=== PATIENT | female | born 1960 | race Caucasian/White ===

== ENCOUNTER 2017-07-02 08:30 | Day surgery (SDC) | payer BC, MEDICAID ==
--- NOTE | 2017-07-01 14:14 | HP ---
HISTORY AND PHYSICAL DATE OF SERVICE: 07/02/2017 Anabella Siddiqi is a 56-year-old patient seen with a symptomatic soft tissue mass of the left elbow. We discussed treatment options. She elected to proceed with surgical excision. Consent was obtained. PAST MEDICAL HISTORY: Hypertension. PAST SURGICAL HISTORY: Left knee arthroscopy. MEDICATIONS: 1. Amlodipine. 2. Alprazolam. 3. Xanax. 4. Enbrel. ALLERGIES: DILAUDID SOCIAL HISTORY: Patient denies current tobacco use. PHYSICAL EVALUATION OF THE LEFT ELBOW: Range of motion is full. There is good rotation of the forearm with no pain. There is a 2 cm x 2 cm soft tissue mass in the area of the olecranon process. It is minimally tender. There is no evidence for any infective process. Distal neurovascular exam is intact. Radiographs of the left elbow revealed no osseous abnormality. IMPRESSION: Symptomatic soft tissue mass, left elbow. PLAN: Excision soft tissue mass, left elbow. MMODL / IJN: [id number] /
[~2017-07-02 08:30] MED LIST: DEXAMETHASONE SOD PHOSPHATE 10 MG/ML 1 ML VIAL IV ONE; LACTATED RINGERS 1,000 ML IV SCH; LIDOCAINE 1% 20 ML VIAL (10MG/ML) FOR IV START INTRADERMA PRN; MIDAZOLAM 2 MG/2 ML VIAL IV PRN; ONDANSETRON 4 MG/2 ML VIAL IVP ONE; SCOPOLAMINE 1.5MG/72HR PATCH TRANSDERM ONE; ceFAZolin IN SWFI 2 GM/20 ML SYRINGE IVP ONE
[2017-07-02] MEDS ORDERED: ePHEDrine SULFATE/0.9% NACL/PF 50 MG/5 ML SYRINGE IV ONE (09:49)
[2017-07-02] MEDS ORDERED: PROPOFOL 10 MG/ML 20 ML VIAL IV ONE (09:49)
[2017-07-02] MEDS ORDERED: SUCCINYLCHOLINE CHLORIDE 100 MG/5 ML SYR IV ONE (09:49)
[2017-07-02] MEDS ORDERED: MIDAZOLAM 2 MG/2 ML VIAL ONE (09:49)
[2017-07-02] MEDS ORDERED: fentaNYL (PF) 50 MCG/ML 2 ML AMP ONE (09:49)
[2017-07-02] MEDS ORDERED: LIDOCAINE 1% INJ 10MG/ML (20 ML MDV) ONE (09:49)
[2017-07-02] MEDS ORDERED: BUPIVACAINE (PF) 0.5% 30 ML VIAL SQ ONE (10:09)
[2017-07-02] MEDS ORDERED: ceFAZolin 1,000 MG in SODIUM CHLORIDE 0.9% 1,000 ML IRRIGATION ONE (10:11)
--- NOTE | 2017-07-02 10:47 | P.OP ---
Date of Procedure: 07/02/17 Preoperative Diagnosis: Left elbow symptomatic soft tissue mass Postoperative Diagnosis: Left elbow symptomatic olecranon bursa Procedure(s) Performed: Left elbow olecranon bursectomy Implants: none Anesthesia: SHAHBAZ, local Surgeon: Sid Griffin Auditing Control Clerk #1: Azam Linton Estimated Blood Loss (ml): 5 Pathology: none sent Condition: stable Disposition: PACU Indications for Procedure: 56-year-old patient seen with a synthetic left elbow soft tissue mass. After treatment options were discussed, she elected to proceed with excision. Operative Findings: see description of procedure Description of Procedure: Patient was taken to the operative suite. Patient received preoperative IV antibiotics. Patient underwent a general anesthetic by the department of anesthesia. Well-padded tourniquet was placed proximal left upper extremity. The left upper extremity was prepped and draped in the normal sterile orthopedic fashion. The tourniquet was insufflated to 250. I made an incision over the area of olecranon prominence sharply through skin. I dissected down to subcutaneous tissues. We noted a prominent olecranon bursa which was fairly swollen and measured approximately 2 cm x 2 cm and raised 2 cm. At this point it was carefully excised. I noted complete excision of the bursa. I performed hemostasis via electrocautery. The wound was irrigated. We now carefully tacked down the subcutaneous soft tissues to close any potential spaces with 2- 0 Vicryl suture. We now repaired the skin margins with a running 30 strata fix suture. The skin itself was approximated with pernio/Dermabond. We infiltrated the subcutaneous area with 10 mL half percent plain Marcaine. Sterile dressings were applied. Tourniquet was released with good capillary refill noted extremity. Sterile web roll and Brigido bandage were applied. Patient was then awakened and transferred to recovery stable condition. Vega HASSAN assisted with the procedure.
[2017-07-02 10:54] VITALS: TEMP 98
[2017-07-02] MEDS ORDERED: LACTATED RINGERS 1,000 ML IV ONE (11:15)
[2017-07-02 11:20] VITALS: RESP 16
[2017-07-02 12:21] VITALS: BP 120/75; PULSE 79
== END 2017-07-02 12:25 | disposition home or self-care (01) ==
LOC: OR 08:30
PROVIDERS: ATTEND Orthopaedic Surgery
DX: M71.522 Other bursitis, not elsewhere classified, left elbow (principal); I10 Essential (primary) hypertension; Z87.891 Personal history of nicotine dependence; K21.9 Gastro-esophageal reflux disease without esophagitis; Z79.891 Long term (current) use of opiate analgesic; Z79.899 Other long term (current) drug therapy; Z88.5 Allergy status to narcotic agent
CPT/HCPCS: 24105; J2250; J1100; J2405; J0690 ×2; J2001; J3010; J0330; J2704

== ENCOUNTER → 2017-07-08 | Outpatient (CLI) | payer MEDICAID ==
[2017-07-08 11:53] LABS: T4, Free (Free Thyroxine) 1.36 ng/dL (0.78-2.19)
[2017-07-08 15:21] LABS: Thyroid Peroxidase Antibodies 30.1 U/mL (0.0-60.0)
[2017-07-08 15:24] LABS: Progesterone <0.2 ng/mL
== END | disposition home or self-care (01) ==
LOC: LABWHC1 07:48
PROVIDERS: ATTEND Family Medicine
DX: Z00.00 Encounter for general adult medical examination without abnormal findings (principal); Q84.0 Congenital alopecia; R06.02 Shortness of breath
CPT/HCPCS: 36415; 82672; 83001; 83002; 84144; 84439; 84443; 84481; 86376; 86800

== ENCOUNTER → 2018-02-02 | Outpatient (CLI) | payer MEDICAID ==
[2018-02-02 08:04] LABS: Basophils % (A) 0 %; Eosinophils # (A) 0.3 k/uL (0-0.7); Eosinophils % (A) 4 %; HCT 45.3 % (34.0-46.0); HGB 14.4 gm/dL (11.4-16.0); Lymphocytes # (A) 1.8 k/uL (1.0-4.8); Lymphocytes % (A) 23 %; MCH 30.1 pg (25.0-35.0); MCHC 31.9 g/dL (31.0-37.0); MCV 94.5 fL (80.0-100.0); Mean Platelet Volume 7.3; Monocytes # (A) 0.4 k/uL (0-1.0); Monocytes % (A) 5 %; Neutrophils % (A) 66 %; Platelet Count 273 k/uL (150-450); RBC 4.79 m/uL (3.80-5.40); RDW 14.2 % (11.5-15.5); WBC 7.6 k/uL (3.8-10.6)
== END | disposition home or self-care (01) ==
LOC: LABPAT 07:24
PROVIDERS: ATTEND Orthopaedic Surgery
DX: Z01.812 Encounter for preprocedural laboratory examination (principal); R22.32 Localized swelling, mass and lump, left upper limb
CPT/HCPCS: 36415; 85025

== ENCOUNTER 2018-02-11 06:18 | Day surgery (SDC) | payer MEDICAID ==
--- NOTE | 2018-02-10 15:08 | HP ---
HISTORY AND PHYSICAL DATE OF SERVICE: 02/11/2018 Anabella Siddiqi is a 67-year-old patient seen with a symptomatic soft tissue mass of the left elbow as well as a symptomatic soft tissue mass of the right index finger, both for progressive symptomatic. We discussed treatment options. She elected to proceed with surgical excision of both soft tissue mass areas. Consent regarding the procedure was obtained. PAST MEDICAL HISTORY: Hypertension. PAST SURGICAL HISTORY: Excision of soft tissue mass left elbow and knee arthroscopy. DAILY MEDICATIONS: 1. Alprazolam. 2. Amlodipine. 3. Tenex. 4. Enbrel. 5. Methotrexate. ALLERGIES: DILAUDID. SOCIAL HISTORY: Patient denies current tobacco use. PHYSICAL EVALUATION OF THE LEFT ELBOW: There is a soft tissue mass located along the olecranon border about 2 cm distal to the previous olecranon bursectomy site. The soft tissue mass measures 2 cm x 1 cm and raised 1 cm, tender to palpation, fully immobile, no erythema or evidence for infective process. There is painless range of motion of the elbow and forearm. Her distal neurovascular exam is intact. ON EXAMINATION OF THE RIGHT INDEX FINGER: There is a soft tissue mass along the dorsal PIP joint, tender to palpation, measuring a couple mm in diameter, raised 1 mm with no evidence for any infective process. Radiographs of the left elbow revealed no osseous abnormality. Radiographs of the right index finger revealed some osteoarthritis of the PIP joint. IMPRESSION: 1. Soft tissue mass, right index finger. 2. Soft tissue mass left elbow. 3. Rheumatoid arthritis. 4. Hypertension. PLAN: Excision soft tissue mass, left elbow and excision soft tissue mass, right index finger. MMODL / IJN: [id number] /
[~2018-02-11 06:18] MED LIST changes: -LIDOCAINE 1% 20 ML VIAL (10MG/ML) FOR IV START INTRADERMA PRN; +fentaNYL (PF) 50 MCG/ML 2 ML AMP IV PRN
[2018-02-11] MEDS ORDERED: PROPOFOL 10 MG/ML 20 ML VIAL IV ONE (07:30)
[2018-02-11] MEDS ORDERED: fentaNYL (PF) 50 MCG/ML 2 ML AMP ONE (07:30)
[2018-02-11] MEDS ORDERED: MIDAZOLAM 2 MG/2 ML VIAL ONE (07:30)
[2018-02-11] MEDS ORDERED: LIDOCAINE 1% INJ 10MG/ML (20 ML MDV) ONE (07:30)
[2018-02-11] MEDS ORDERED: ROPIVACAINE 5 MG/ML 30 ML VIAL MISCELLANE ONE ×2 (07:49)
--- NOTE | 2018-02-11 08:24 | P.OP ---
Date of Procedure: 02/11/18 Preoperative Diagnosis: 1. Soft tissue mass left elbow 2. Soft tissue mass right index finger Postoperative Diagnosis: Same Procedure(s) Performed: 1. Excision soft tissue mass left elbow 2. Excision soft tissue mass right index finger Anesthesia: SHAHBAZ, local Surgeon: Sid Griffin Estimated Blood Loss (ml): 3 Pathology: none sent Condition: stable Disposition: PACU Indications for Procedure: 57-year-old patient seen with symptomatic soft tissue masses involving the left elbow and right index finger. After having treatment options discussed, she elected to proceed with surgical excision. Consent was obtained. Operative Findings: see description of procedure Description of Procedure: The patient was taken to the operative suite. Patient received preoperative IV antibiotics. The patient underwent a general anesthetic by the department anesthesia. A well-padded tourniquet was placed proximal left upper extremity. Left upper extremity was prepped and draped in the normal sterile orthopedic fashion. The tourniquet was elevated to 250. I made an incision over the area of the soft tissue mass. Dissection was taken down to the soft tissue mass. It appeared to be a fibrous benign-appearing soft tissue mass. It was excised without difficulty. Cautery was utilized to achieve hemostasis. The wound was irrigated. The skin margins were approximated nylon suture. I used 15 mL of half percent plain ropivacaine around the area of the excision. Sterile dressings were applied. The tourniquet was released and immediate capillary refill was noted the entire extremity. At this point the right upper extremity is prepped and draped in the normal sterile orthopedic fashion. A [place] drain was utilized to achieve tourniquet effect to the right index finger. An incision was made over the soft tissue mass which was along the dorsal DIP joint ulnar side. I dissected down to the soft tissue masses appear to be fibrous in nature. It was excised without difficulty. The wound was irrigated. The skin is proximal nylon sutures. The Meeta was released and immediate capillary refill the entire digit. I used 5 mL half percent plain ropivacaine for a digital block. Sterile dressings were applied. The patient was awakened, transferred to recovery stable condition.
[2018-02-11 08:25] VITALS: RESP 16; TEMP 98.4
[2018-02-11 09:33] VITALS: BP 134/87; PULSE 79
== END 2018-02-11 09:48 | disposition home or self-care (01) ==
LOC: OR 06:18
PROVIDERS: ATTEND Orthopaedic Surgery
DX: L92.8 Other granulomatous disorders of the skin and subcutaneous tissue (principal); M06.9 Rheumatoid arthritis, unspecified; I10 Essential (primary) hypertension; Z79.899 Other long term (current) drug therapy; Z88.5 Allergy status to narcotic agent; K21.9 Gastro-esophageal reflux disease without esophagitis
CPT/HCPCS: 88305; 88312; 24075; 26115; J2250; J1100; J2405; J2001; J3010; J2795; J2704; J0690

== ENCOUNTER → 2018-04-24 | Outpatient (CLI) | payer MEDICAID ==
[2018-04-24 09:04] LABS: Basophils % (A) 1 %; Eosinophils # (A) 0.3 k/uL (0-0.7); Eosinophils % (A) 5 %; HCT 44.6 % (34.0-46.0); HGB 14.9 gm/dL (11.4-16.0); Lymphocytes # (A) 1.8 k/uL (1.0-4.8); Lymphocytes % (A) 32 %; MCH 30.8 pg (25.0-35.0); MCHC 33.3 g/dL (31.0-37.0); MCV 92.4 fL (80.0-100.0); Mean Platelet Volume 6.9; Monocytes # (A) 0.3 k/uL (0-1.0); Monocytes % (A) 5 %; Neutrophils # (A) 3.1 k/uL (1.3-7.7); Neutrophils % (A) 54 %; Platelet Count 290 k/uL (150-450); RBC 4.83 m/uL (3.80-5.40); RDW 13.6 % (11.5-15.5); WBC 5.7 k/uL (3.8-10.6)
[2018-04-24 09:10] LABS: Potassium 4.6 mmol/L (3.5-5.1)
[2018-04-24 09:14] LABS: Partial Thromboplastin Time 22.7 sec (22.0-30.0); Prothrombin Time 9.6 sec (9.0-12.0)
== END ==
LOC: LABWHC1 08:12
PROVIDERS: ATTEND Orthopaedic Surgery
DX: Z01.818 Encounter for other preprocedural examination (principal); Z01.812 Encounter for preprocedural laboratory examination; M17.12 Unilateral primary osteoarthritis, left knee
CPT/HCPCS: 80051; 85025; 85610; 85730; 87070; 93005

== ENCOUNTER 2018-04-29 00:58 | Emergency (ER) | payer MEDICAID ==
[2018-04-29 01:04] VITALS: TEMP 97.9
[2018-04-29] MEDS ORDERED: SODIUM CHLORIDE 0.9% 1,000 ML IV STA ×2 (01:13)
[2018-04-29] MEDS ORDERED: ONDANSETRON 4 MG/2 ML VIAL IVP STA (01:26)
[2018-04-29] MEDS ORDERED: MORPHINE SULFATE 4 MG/ML SYRINGE IVP STA (01:26)
[2018-04-29] MEDS ORDERED: KETOROLAC 30 MG/ML 1 ML VIAL IVP STA (01:26)
--- NOTE | 2018-04-29 01:40 | ED ---
Abdominal Pain HPI - General Chief Complaint: Abdominal Pain Stated Complaint: Side Pain Time Seen by Provider: 04/29/18 01:05 Source: patient, family, RN notes reviewed, old records reviewed Mode of arrival: wheelchair Limitations: no limitations - History of Present Illness Initial Comments: Patient is a 57-year-old female presents emergency Department due to complaint of left lower quadrant abdominal pain for the past 5 days. Patient reports she started taking antibiotics for diverticulitis on Thursday. She's been taking the medications but pain has been persisting. Patient reports that she is concerned because she's had continued chills. She reports she's had some episodes of vomiting today. She did have a bowel movement today no blood noted. She denies dysuria or hematuria. Denies back pain. She reports her pain feels similar to her previous diverticulitis episodes but is never lasted this long. - Related Data Home Medications Medication Instructions Recorded Confirmed ALPRAZolam [Xanax] 0.5 mg PO DIRECTED PRN 12/13/15 02/11/18 Etanercept [Enbrel] 25 mg SQ FR 12/13/15 02/11/18 Folic Acid 1 mg PO DAILY 12/13/15 02/11/18 Methotrexate Sodium [Methotrexate] 7 tab PO FR 12/13/15 02/11/18 Pantoprazole [Protonix] 40 mg PO Q48H 12/13/15 02/11/18 amLODIPine BESYLATE [Amlodipine 5 mg PO DAILY 12/13/15 02/11/18 Besylate] diphenhydrAMINE [Benadryl] 25 mg PO BID PRN 02/05/18 02/11/18 Previous Rx's Medication Instructions Recorded Ketorolac [Toradol] 10 mg PO Q6H #20 tab 04/29/18 Allergies Allergy/AdvReac Type Severity Reaction Status Date / Time hydromorphone [From Dilaudid] Allergy sweating, Verified 02/11/18 06:35 blood pressure dropped, n/v Review of Systems ROS Statement: Those systems with pertinent positive or pertinent negative responses have been documented in the HPI. ROS Other: All systems not noted in ROS Statement are negative. Past Medical History Past Medical History: GERD/Reflux, Hypertension, Rheumatoid Arthritis (RA) Additional Past Medical History / Comment(s): DIVERTICULOSIS History of Any Multi-Drug Resistant Organisms: None Reported Additional Past Surgical History / Comment(s): KNEE SURGERIES LEFT X 9 Past Anesthesia/Blood Transfusion Reactions: No Reported Reaction, Family History of Problems w/ Anesthesia Additional Past Anesthesia/Blood Transfusion Reaction / Comment(s): daughter experiences passing out after anesthesia Past Psychological History: No Psychological Hx Reported Smoking Status: Never smoker Past Drug Use History: None Reported - Past Family History Mother Family Medical History: No Reported History General Exam - General Exam Comments Initial Comments: 57-year-old female. Alert and oriented. Patient appears in no significant distress. Limitations: no limitations General appearance: alert, in no apparent distress Head exam: Present: atraumatic, normocephalic, normal inspection Eye exam: Present: normal appearance, PERRL, EOMI. Absent: scleral icterus, conjunctival injection, periorbital swelling ENT exam: Present: normal exam, mucous membranes moist Neck exam: Present: normal inspection. Absent: tenderness, meningismus, lymphadenopathy Respiratory exam: Present: normal lung sounds bilaterally. Absent: respiratory distress, wheezes, rales, rhonchi, stridor Cardiovascular Exam: Present: regular rate GI/Abdominal exam: Present: soft, tenderness (Left lower quadrant tenderness.), normal bowel sounds. Absent: distended, guarding, rebound, rigid Back exam: Present: normal inspection Neurological exam: Present: alert, oriented X3, CN II-XII intact Psychiatric exam: Present: normal affect, normal mood Skin exam: Present: warm, dry, intact, normal color. Absent: rash Course Vital Signs 04/29/18 04/29/18 04/29/18 01:00 02:09 03:30 Temperature 97.9 F 97.9 F Pulse Rate 112 H 78 Respiratory 18 18 19 Rate Blood Pressure 143/91 157/95 O2 Sat by Pulse 97 98 Oximetry Medical Decision Making - Medical Decision Making Patient is a 57-year-old female with history of rheumatoid arthritis, on Enbrel and methotrexate presents emergency room with left lower quadrant abdominal pain. Patient is concerned that she has diverticulitis. She's been taking antibiotics for the past 5 days. She reports her symptoms are not getting any better. Patient was started on IV and blood work was obtained. Blood culture lactic acid obtained. Patient was started on Toradol, and offered morphine but she declined. Patient labwork was reviewed. White blood cell count was normal. She does have elevated liver enzymes of 266 and 280. Patient states that that hasn't been elevated according to her senior stereo compiler team lead. I discussed that she should follow-up with her senior stereo compiler team lead in regards to this. She may need to discontinue methotrexate. Patient CT abdomen and pelvis was completed. There is no evidence of diverticulitis. Patient does have a left-sided ovarian cyst. Patient informed of these results. I discussed that we will have her follow-up with [facility] and discharge her with anti-inflammatory medicine. Patient agrees to treatment plan will comply. Return parameters were discussed. - Lab Data Result diagrams: 04/29/18 01:50 04/29/18 01:50 Lab Results 04/29/18 04/29/18 04/29/18 Range/Units 01:50 01:50 01:50 WBC 5.9 (3.8-10.6) k/uL RBC 4.64 (3.80-5.40) m/uL Hgb 14.2 (11.4-16.0) gm/dL Hct 42.8 (34.0-46.0) % MCV 92.3 (80.0-100.0) fL MCH 30.6 (25.0-35.0) pg MCHC 33.2 (31.0-37.0) g/dL RDW 13.9 (11.5-15.5) % Plt Count 254 (150-450) k/uL Neutrophils % 60 % Lymphocytes % 28 % Monocytes % 4 % Eosinophils % 6 % Basophils % 1 % Neutrophils # 3.5 (1.3-7.7) k/uL Lymphocytes # 1.6 (1.0-4.8) k/uL Monocytes # 0.2 (0-1.0) k/uL Eosinophils # 0.3 (0-0.7) k/uL Basophils # 0.0 (0-0.2) k/uL Sodium 140 (137-145) mmol/L Potassium 3.7 (3.5-5.1) mmol/L Chloride 109 H (98-107) mmol/L Carbon Dioxide 24 (22-30) mmol/L Anion Gap 7 mmol/L BUN 8 (7-17) mg/dL Creatinine 0.64 (0.52-1.04) mg/dL Est GFR (CKD-EPI)AfAm >90 (>60 ml/min/1.73 sqM) Est GFR (CKD-EPI)NonAf >90 (>60 ml/min/1.73 sqM) Glucose 114 H (74-99) mg/dL Plasma Lactic Acid [place] 2.0 (0.7-2.0) mmol/L Calcium 8.9 (8.4-10.2) mg/dL Total Bilirubin 0.5 (0.2-1.3) mg/dL AST 233 H (14-36) U/L ALT 234 H (9-52) U/L Alkaline Phosphatase 106 (38-126) U/L Total Protein 7.6 (6.3-8.2) g/dL Albumin 4.0 (3.5-5.0) g/dL Amylase 52 (30-110) U/L Lipase 144 (23-300) U/L Urine Color Urine Appearance (Clear) Urine pH (5.0-8.0) Ur Specific [place] (1.001-1.035) Urine Protein (Negative) Urine Glucose (UA) (Negative) Urine Ketones (Negative) Urine Blood (Negative) Urine Nitrite (Negative) Urine Bilirubin (Negative) Urine Urobilinogen (<2.0) mg/dL Ur Leukocyte Esterase (Negative) Urine RBC (0-5) /hpf Urine WBC (0-5) /hpf Ur Squamous Epith Cells (0-4) /hpf Urine Bacteria (None) /hpf Urine Mucus (None) /hpf 04/29/18 Range/Units 02:56 WBC (3.8-10.6) k/uL RBC (3.80-5.40) m/uL Hgb (11.4-16.0) gm/dL Hct (34.0-46.0) % MCV (80.0-100.0) fL MCH (25.0-35.0) pg MCHC (31.0-37.0) g/dL RDW (11.5-15.5) % Plt Count (150-450) k/uL Neutrophils % % Lymphocytes % % Monocytes % % Eosinophils % % Basophils % % Neutrophils # (1.3-7.7) k/uL Lymphocytes # (1.0-4.8) k/uL Monocytes # (0-1.0) k/uL Eosinophils # (0-0.7) k/uL Basophils # (0-0.2) k/uL Sodium (137-145) mmol/L Potassium (3.5-5.1) mmol/L Chloride (98-107) mmol/L Carbon Dioxide (22-30) mmol/L Anion Gap mmol/L BUN (7-17) mg/dL Creatinine (0.52-1.04) mg/dL Est GFR (CKD-EPI)AfAm (>60 ml/min/1.73 sqM) Est GFR (CKD-EPI)NonAf (>60 ml/min/1.73 sqM) Glucose (74-99) mg/dL Plasma Lactic Acid [place] (0.7-2.0) mmol/L Calcium (8.4-10.2) mg/dL Total Bilirubin (0.2-1.3) mg/dL AST (14-36) U/L ALT (9-52) U/L Alkaline Phosphatase (38-126) U/L Total Protein (6.3-8.2) g/dL Albumin (3.5-5.0) g/dL Amylase (30-110) U/L Lipase (23-300) U/L Urine Color Light Yellow Urine Appearance Cloudy H (Clear) Urine pH 7.5 (5.0-8.0) Ur Specific [place] 1.009 (1.001-1.035) Urine Protein Negative (Negative) Urine Glucose (UA) Negative (Negative) Urine Ketones Negative (Negative) Urine Blood Negative (Negative) Urine Nitrite Negative (Negative) Urine Bilirubin Negative (Negative) Urine Urobilinogen <2.0 (<2.0) mg/dL Ur Leukocyte Esterase Moderate H (Negative) Urine RBC 2 (0-5) /hpf Urine WBC 4 (0-5) /hpf Ur Squamous Epith Cells 4 (0-4) /hpf Urine Bacteria Many H (None) /hpf Urine Mucus Rare H (None) /hpf - Radiology Data Radiology results: report reviewed There is a sigmoid diverticulosis without evidence of acute diverticulitis. Mild if her to chemosis of the left colon. There is normal appendix. Cystic fluid collection of the left side of the pelvis is probably a left ovarian cyst. Disposition Clinical Impression: Elevated liver enzymes, Left ovarian cyst Disposition: HOME SELF-CARE Condition: Good Instructions: Ovarian Cyst (ED) Additional Instructions: Patient is advised to follow-up with primary care physician. Take the medicines as prescribed. Return to the emergency department if any alarming signs or symptoms occur. Prescriptions: Ketorolac [Toradol] 10 mg PO Q6H #20 tab Is patient prescribed a controlled substance at d/c from ED?: No Referrals: Shayne Cisneros DO [Primary Care Provider] - 1-2 days Humaira Benítez DO [Doctor of Osteopathic Medicine] - 1-2 days Darlene Ugarte MD [STAFF PHYSICIAN] - 1-2 days Time of Disposition: 03:48
[2018-04-29 02:35] LABS: Basophils % (A) 1 %; Eosinophils # (A) 0.3 k/uL (0-0.7); Eosinophils % (A) 6 %; HCT 42.8 % (34.0-46.0); HGB 14.2 gm/dL (11.4-16.0); Lymphocytes # (A) 1.6 k/uL (1.0-4.8); Lymphocytes % (A) 28 %; MCH 30.6 pg (25.0-35.0); MCHC 33.2 g/dL (31.0-37.0); MCV 92.3 fL (80.0-100.0); Mean Platelet Volume 7.5; Monocytes # (A) 0.2 k/uL (0-1.0); Monocytes % (A) 4 %; Neutrophils # (A) 3.5 k/uL (1.3-7.7); Neutrophils % (A) 60 %; Platelet Count 254 k/uL (150-450); RBC 4.64 m/uL (3.80-5.40); RDW 13.9 % (11.5-15.5); WBC 5.9 k/uL (3.8-10.6)
[2018-04-29 02:37] LABS: ALT 234 U/L (9-52); AST 233 U/L (14-36); Alkaline Phosphatase 106 U/L (38-126); Amylase 52 U/L (30-110); Anion Gap 7 mmol/L; Blood Urea Nitrogen 8 mg/dL (7-17); Calcium 8.9 mg/dL (8.4-10.2); Carbon Dioxide 24 mmol/L (22-30); Chloride 109 mmol/L (98-107); Glucose 114 mg/dL (74-99); Lipase 144 U/L (23-300); Potassium 3.7 mmol/L (3.5-5.1); Sodium 140 mmol/L (137-145); Total Bilirubin 0.5 mg/dL (0.2-1.3); Total Protein 7.6 g/dL (6.3-8.2)
--- NOTE | 2018-04-29 03:09 | CT ---
EXAMINATION TYPE: CT abdomen pelvis w con DATE OF EXAM: 04/29/2018 COMPARISON: 12/15/2008 HISTORY: LLQ Abd pain, R/O Abcess, R/O Diverticulitis CT DLP: 849.10 mGycm Automated exposure control for dose reduction was used. TECHNIQUE: Helical acquisition of images was performed from the lung bases through the pelvis. CONTRAST: Performed without Oral Contrast and with IV Contrast, patient injected with 100 mL of Isovue 300. FINDINGS: Lung bases are clear. There is no pleural effusion. There is no pericardial effusion. Heart size is n ormal. Liver spleen pancreas gallbladder appear normal. Bile ducts are not dilated. There is no adrenal mass. Kidneys show satisfactory contrast opacification. There is no hydronephrosi s. Ureters are not dilated. There is no retroperitoneal adenopathy. Bladder distends smoothly. There is no inguinal hernia. Uterus is retroverted. There are numerous div erticula in the sigmoid colon. I see no sign of diverticulitis. There is 4.6 x 2.6 cm cystic fluid co llection in the pelvis on the left side. Appendix appears normal. Lumbar vertebra have normal spacing and alignment. I see no bony destructive process. Bony pelvis anaya ears intact. There is no mesenteric edema or adenopathy. There is no sign of free air. There is no si gn of ascites. IMPRESSION: THERE IS SIGMOID DIVERTICULOSIS WITHOUT EVIDENCE OF DIVERTICULITIS. THERE IS MILD DIVERTICULOSIS OF T HE LEFT COLON. NORMAL APPENDIX. CYSTIC FLUID COLLECTION ON THE LEFT SIDE IN THE PELVIS IS PROBABLY LEFT OVARIAN CYST.
[2018-04-29 03:19] LABS: Appearance,Urine Cloudy (Clear); Bacteria,Urine Many /hpf; Bilirubin,Urine Negative (Negative); Blood,Urine Negative (Negative); Color,Urine Light Yellow; Glucose,Urine (UA) Negative (Negative); Ketones,Urine Negative (Negative); Leukocyte Esterase,Urine Moderate (Negative); Mucus,Urine Rare /hpf; Nitrite,Urine Negative (Negative); PH, Urine 7.5 (5.0-8.0); Protein,Urine Negative (Negative); RBC,Urine 2 /hpf (0-5); Specific Gravity,Urine 1.009 (1.001-1.035); Squamous Epithelial Cell,Urine 4 /hpf (0-4); Urobilinogen,Urine <2.0 mg/dL (<2.0); WBC,Urine 4 /hpf (0-5)
[2018-04-29 03:36] VITALS: BP 157/95; PULSE 78; RESP 19
== END 2018-04-29 03:52 | disposition home or self-care (01) ==
LOC: EC 00:58
DX: N83.202 Unspecified ovarian cyst, left side (principal); R74.8 Abnormal levels of other serum enzymes; K21.9 Gastro-esophageal reflux disease without esophagitis; I10 Essential (primary) hypertension; M06.9 Rheumatoid arthritis, unspecified; Z79.899 Other long term (current) drug therapy; Z88.5 Allergy status to narcotic agent; Z53.29 Procedure and treatment not carried out because of patient's decision for other reasons
CPT/HCPCS: 36415; 74177; 80053; 81001; 82150; 83605; 83690; 85025; 87040; 96361; 96374; 96375; 99284

== ENCOUNTER 2018-05-17 08:06 | Inpatient (IN) | payer MEDICAID ==
--- NOTE | 2018-05-16 16:11 | HP ---
HISTORY AND PHYSICAL REASON FOR ADMISSION: Surgery 05/17/2018. Anabella Siddiqi is a 57-year-old patient seen with symptomatic left knee osteoarthritis. We discussed treatment options. She elected to proceed with left total knee arthroplasty. Consent was obtained regarding the procedure. PAST MEDICAL HISTORY: Hypertension. PAST SURGICAL HISTORY: Knee arthroscopy. MEDICATIONS: Alprazolam, amlodipine, Xanax, Enbrel, methotrexate. ALLERGIES: DILAUDID. SOCIAL HISTORY: Patient denies current tobacco use. PHYSICAL EXAMINATION: Evaluation left knee range of motion is 0 to 120 degrees. Tenderness along lateral joint line crepitus, lateral patellofemoral compartments. Pain with patellofemoral compression. Ligaments stable. Hip rotation without pain. Distal neurovascular exam intact. RADIOGRAPHS: Left knee radiographs reveal severe lateral and moderate patellofemoral compartment osteoarthritis. IMPRESSION: 1. Left knee osteoarthritis. 2. Hypertension. 3. Rheumatoid arthritis. PLAN: Left total knee arthroplasty. Surgery 05/17/2018. MMODL / IJN: [id number] /
[~2018-05-17 08:06] MED LIST changes: +ACETAMINOPHEN TAB 500 MG TAB PO ONE; +HYDROmorphone 0.5 MG/0.5 ML SYRINGE IVP PRN; +LIDOCAINE 1% 20 ML VIAL (10MG/ML) FOR IV START INTRADERMA PRN; +MELOXICAM 7.5 MG TAB PO ONE; +MIDAZOLAM (PF) 2 MG/2 ML VIAL IV PRN; -MIDAZOLAM 2 MG/2 ML VIAL IV PRN; +TRANEXAMIC ACID 1,000 MG in SODIUM CHLORIDE 0.9% 50 ML IVPB ONE; -fentaNYL (PF) 50 MCG/ML 2 ML AMP IV PRN
[2018-05-17] MEDS ORDERED: fentaNYL (PF) 50 MCG/ML 2 ML AMP IV ONE (09:03)
[2018-05-17] MEDS ORDERED: ROPIVACAINE 246.25 MG, EPINEPHrine 0.5 MG, KETOROLAC 30 MG, cloNIDine HCL/PF 80 MCG, WA... MISCELLANE ONE ×5 (10:02)
[2018-05-17] MEDS ORDERED: SUCCINYLCHOLINE CHLORIDE 100 MG/5 ML SYR IV ONE (10:09)
[2018-05-17] MEDS ORDERED: SODIUM CHLORIDE 0.9% 100 ML BAG ONE (10:09)
[2018-05-17] MEDS ORDERED: TRANEXAMIC ACID 1,000 MG/10 ML VIAL ONE (10:09)
[2018-05-17] MEDS ORDERED: MIDAZOLAM 2 MG/2 ML VIAL ONE (10:09)
[2018-05-17] MEDS ORDERED: PROPOFOL 10 MG/ML 20 ML VIAL IV ONE (10:09)
[2018-05-17] MEDS ORDERED: fentaNYL (PF) 50 MCG/ML 2 ML AMP ONE (10:09)
[2018-05-17] MEDS ORDERED: DEXAMETHASONE SOD PHOS (MDV) 100 MG/10 ML VIAL ONE (10:09)
[2018-05-17] MEDS ORDERED: ROPIVACAINE 1,100 MG, SODIUM CHLORIDE 0.9% 500 ML 330 ML MISCELLANE PRN ×2 (10:26)
--- NOTE | 2018-05-17 10:28 | P.ONQ ---
Anesthesiology Proc Note - PNB - Peripheral Nerve Block Performed Left Adductor Canal Infusion Time Out Performed: Yes (902) Procedure Start Time: :03 Procedure Stop Time: :13 Indication: Acute Post-Operative Pain, Dx/Pain Location (Left Knee Pain), Requested by physician Sedation Type: Sedate with meaningful contact maintained Preparation: Sterile Prep Catheter: Indwelling Needle Size: 100mm (4") Needle Gauge: 21 Technique: Ultrasound Injectate: 0.5% Ropivacaine (see comment for volume) (20ml) Blood Aspirated: No Pain Paresthesia on Injection Noted: No Resistance on Injection: Normal Events: Uneventful and Well Tolerated
[2018-05-17] MEDS ORDERED: ceFAZolin 3,000 MG in SODIUM CHLORIDE 0.9% IRRIGATIO 3,000 ML IRRIGATION ONE (10:44)
[2018-05-17] MEDS ORDERED: LACTATED RINGERS 1,000 ML IV ONE (12:05)
[2018-05-17] MEDS ORDERED: MORPHINE SULFATE 4 MG/ML SYRINGE IV PRN ×2 (12:14)
[2018-05-17] MEDS ORDERED: NALOXONE 0.4 MG/ML 1 ML VIAL IV PRN (12:14)
[2018-05-17] MEDS ORDERED: HYDROcodone/APAP 5-325MG 1 EACH TAB PO PRN (12:14)
[2018-05-17] MEDS ORDERED: MORPHINE SULFATE 2 MG/ML SYRINGE IVP PRN ×2 (12:14)
[2018-05-17] MEDS ORDERED: ONDANSETRON 4 MG/2 ML VIAL IVP PRN (12:14)
--- NOTE | 2018-05-17 12:14 | P.OP ---
Date of Procedure: 05/17/18 Preoperative Diagnosis: Left knee osteoarthritis Postoperative Diagnosis: Left knee osteoarthritis Procedure(s) Performed: Left total knee arthroplasty Implants: 1. Microport evolution MP size 4 left cemented femur 2. Microport evolution MP size 4 left cemented tibial baseplate 3. Microport evolution MP CS size 4 left 10 mm polyethylene tibial insert 4. Microport advance 32 mm all polyethylene cemented patella Anesthesia: GETA, regional (Adductor canal catheter), local Surgeon: Sid Griffin Medicaid Analyst #1: Azam Linton Estimated Blood Loss (ml): 50 Pathology: other (Bone) Condition: stable Disposition: PACU Indications for Procedure: 57-year-old patient seen with symptomatic left knee osteoarthritis. After treatment options were discussed, she elected to proceed with total knee arthroplasty Operative Findings: see description of procedure Description of Procedure: Patient was taken to the operative suite after having an adductor canal catheter placed by the department of anesthesia. Patient underwent a general anesthetic by the department of anesthesia. Patient was given preoperative IV intake antibiotics and TXA. A well-padded tourniquet was placed about the left lower extremity. The lower extremity was then prepped and draped in the normal sterile orthopedic fashion. The extremity was elevated, a tourniquet was insufflated to 300. A standard anterior incision was made sharply through skin. Dissection was taken down through the subcutaneous soft tissues down to the extensor mechanism. A medial arthrotomy was performed, patella was everted and knee was flexed. There was advanced osteoarthritis noted. I introduced my distal intramedullary femoral drill. I then introduced the distal femoral cutting jig. Vega HASSAN secured the cutting jig with 2 pins. I held retractors in position while Vega HASSAN performed the distal femoral resection through the guide area we now removed her distal femoral cutting guide. We now placed our 4-in-1 femoral cutting block and positioned and it was secured with 2 pins by Vega HASSAN while I held the block in position. The distal femoral finishing was now completed. A proximal tibial cutting guide was positioned. I held the guide in the appropriate position with both hands well Vega HASSAN inserted stabilizing pins into the guide. Proximal tibial cut was made. We now placed a trial femoral component into position, along with an appropriate size tibial tray and insert. We now took the knee through range of motion and had full extension good flexion and good overall soft tissue balance noted. The patella was everted and stabilized with 2 towel clips held by Vega HASSAN while I performed a flush with patellar quad tendon utilizing a fresh sawblade. We templated the patella, appropriate drill holes were made. An appropriate trial patella was positioned, knee was taken through full range of motion with the patella tracking very nicely. The trial patella was removed. Drill holes were made through the femoral component. All trial components were removed after marking off the appropriate rotation of the tibia. Retractors were now positioned along the proximal tibia. An appropriate keel punch was made with the appropriate size tibial guide by myself on Vega HASSAN assisted by holding retractors. At this point appropriate size implants were chosen and opened. The joint was irrigated copiously with pulse lavage mechanical irrigation. The posterior capsule was infiltrated with local analgesic. The wound was irrigated with pulse lavage mechanical irrigation. We mixed antibiotic methylmethacrylate. We placed the knee into flexion. We placed multiple retractors assisted by Vega HASSAN to expose the proximal tibia. Once the methyl methacrylate was ready, the tibial component was cemented into place removing any excess methylmethacrylate form by both myself and Vega HASSAN. The femoral component was cemented into place removing the removing any excess methylmethacrylate performed by both myself and Vega HASSAN. We then inserted the appropriate size polyethylene tibial insert. We made sure that it was locked into position. We took the knee into full extension, and then back in a flexion making sure we had removed any excess methylmethacrylate. The patellar component was then cemented down and secured with clamp. Excess methylmethacrylate removed. We kept the knee in full extension, patellar clamp in position until methylmethacrylate had hardened. Once it had hardened the patellar clamp was removed. The knee was taken through full range of motion. The patella tracked nicely. There was good soft tissue balancing. The tourniquet was now released. Additional hemostasis was achieved via electrocautery. A second gram of TXA was given. The wound again was irrigated with pulse lavage mechanical irrigation. The superficial soft tissues were infiltrated local analgesic. The extensor mechanism was repaired with Vicryl. We checked the repair with range of motion and it was stable. The subcutaneous soft tissues were repaired with Vicryl in layers. The skin was approximated with pernio/Dermabond. Sterile dressings were applied followed by loose web roll and Brigido bandage. The patient was transferred to a bed, and taken to recovery in stable and satisfactory condition. Vega HASSAN assisted with this complex procedure.
[2018-05-17] MEDS: MEPERIDINE 50 MG/ML SYRINGE IVP ONE ×4 (12:45→13:18)
--- NOTE | 2018-05-17 13:07 | XR ---
Limited left knee history: Status post left knee arthroplasty 2 views of the left knee Patient is status post left knee arthroplasty. There is anatomic alignment. Lucency present in the so ft tissues compatible with postop state. IMPRESSION: Orthopedic follow-up.
[2018-05-17] MEDS: HYDROcodone/APAP 7.5-325MG 1 EACH TAB PO PRN (14:47)
[2018-05-17] MEDS: ceFAZolin IN SWFI 2 GM/20 ML SYRINGE IVP SCH (18:35)
[2018-05-17] MEDS: ONDANSETRON 4 MG/2 ML VIAL IVP PRN (19:01)
[2018-05-17] MEDS ORDERED: ALPRAZolam 0.5 MG TAB PO PRN (19:41)
[2018-05-17] MEDS ORDERED: SENNOSIDES-DOCUSATE SODIUM 1 EACH TAB PO SCH (21:00)
[2018-05-17] MEDS: ENOXAPARIN 30 MG/0.3 ML SYRINGE SQ SCH (21:17)
[2018-05-18] MEDS: ceFAZolin IN SWFI 2 GM/20 ML SYRINGE IVP SCH (03:19)
[2018-05-18] MEDS: ONDANSETRON 4 MG/2 ML VIAL IVP PRN (03:33)
--- NOTE | 2018-05-18 05:48 | P.CONS ---
History of Present Illness - Reason for Consult Consult date: 05/17/18 medical management Requesting physician: Sid Griffin - Chief Complaint post left total knee arthroplasty. - History of Present Illness This is a 57-year-old female one of Dr. Cisneros with a previous medical history significant for hypertension and hypertensive cardiovascular disease with left ventricular hypertrophy, osteoarthritis, GERD, rheumatoid arthritis, trigger finger, patient underwent left total knee arthroplasty that was done successfully by Dr. Dr. Griffin and we were asked to see the patient for medical management. patient stated that she had her left knee operated on 9 times so far between arthroscopic and open surgeries. she is lying down in bed does complain of increased nausea and can not tolerate her diet due to pain meds and anesthetics we have increased her zofran to 4 times daily and if not better will start Scopolamin patch. Review of Systems Constitutional: Denies anorexia, Denies chronic headaches, Denies malaise, Denies weakness, Denies weight gain Eyes: denies blurred vision, denies bulging eye, denies decreased vision Ears: deny: decreased hearing Ears, nose, mouth and throat: Denies dysphagia, Denies neck lump Cardiovascular: Reports high blood pressure, Denies chest pain, Denies decreased exercise tolerance, Denies dyspnea on exertion, Denies phlebitis, Denies rapid heart beat, Denies shortness of breath, Denies syncope Respiratory: Denies congestion, Denies cough with sputum, Denies home oxygen, Denies sleep apnea, Denies snoring, Denies wheezing Gastrointestinal: Reports nausea, Reports vomiting, Denies abdominal pain, Denies bloating, Denies BRBPR, Denies heartburn, Denies melena Genitourinary: Denies dysuria, Denies hematuria Musculoskeletal: Denies myalgias Musculoskeletal: left: knee pain, knee stiffness, knee swelling, absent: ankle pain, ankle stiffness, ankle swelling, elbow pain, elbow stiffness, elbow swelling, foot pain, foot stiffness, foot swelling, hand pain, hand stiffness, hand swelling, hip pain, hip stiffness, hip swelling, shoulder pain, shoulder stiffness, shoulder swelling, wrist pain, wrist stiffness, wrist swelling Integumentary: Denies pruritus, Denies rash Neurological: Denies numbness, Denies weakness Psychiatric: Denies anxiety, Denies depression Endocrine: Denies fatigue, Denies weight change Past Medical History Past Medical History: GERD/Reflux, Hypertension, Osteoarthritis (OA), Rheumatoid Arthritis (RA) Additional Past Medical History / Comment(s): SEEN IN ER 04/29/18 WITH LLQ PAIN - DIVERTICULOSIS, POSSIBLE LEFT OVARIAN CYST. History of Any Multi-Drug Resistant Organisms: None Reported Past Surgical History: Orthopedic Surgery Additional Past Surgical History / Comment(s): KNEE SURGERIES LEFT X 9, SOFT TISSUE MASS LEFT ELBOW AND RIGHT INDEX FINGER., LEFT ARM SOFT TISSUE MASS. Past Anesthesia/Blood Transfusion Reactions: No Reported Reaction, Family History of Problems w/ Anesthesia Additional Past Anesthesia/Blood Transfusion Reaction / Comm: daughter passed out after wisdom teeth removed. Past Psychological History: Anxiety Smoking Status: Former smoker Past Alcohol Use History: Occasional Additional Past Alcohol Use History / Comment(s): smoked 30 years 1ppd quit Past Drug Use History: None Reported - Past Family History Mother Family Medical History: Diabetes Mellitus, Hypertension (Mother is 76 year old with diabetes and hyoertension.) Father Family Medical History: Hypertension, Renal Disease (Father is 77 year old with hypertension and renal failure.) Brother(s) Family Medical History: Diabetes Mellitus (paient has on brother with diabetes.) Sister(s) Family Medical History: Diabetes Mellitus (patient has one sister with diabetes. ) Daughter(s) Family Medical History: No Reported History (patient has one daughter no health issues.) Son(s) Family Medical History: No Reported History (patient has one son no health issues.) Medications and Allergies Home Medications Medication Instructions Recorded Confirmed Type Etanercept [Enbrel] 25 mg SQ Q7D 12/13/15 05/17/18 History Folic Acid 1 mg PO DAILY 12/13/15 05/17/18 History Methotrexate Sodium [Methotrexate] 17.5 tab PO Q7D 12/13/15 05/17/18 History Pantoprazole [Protonix] 40 mg PO Q48H 12/13/15 05/17/18 History amLODIPine BESYLATE [Amlodipine 5 mg PO DAILY 12/13/15 05/17/18 History Besylate] Ketorolac [Toradol] 10 mg PO Q6H #20 tab 04/29/18 05/17/18 Rx ALPRAZolam [Xanax] 0.5 mg PO DAILY PRN 05/05/18 05/17/18 History Allergies Allergy/AdvReac Type Severity Reaction Status Date / Time hydrocodone [From Vicodin] Allergy Unknown sweating,blood Verified 05/17/18 14: 35 pressure,n&v,dizziness oxycodone [From Percocet] Allergy Unknown sweating,bloodpressure Verified 14:35 drops,n/v, dizziness hydromorphone [From Dilaudid] Allergy sweating, Verified 05/17/18 14:35 blood pressure dropped, n/v,dizziness Physical Exam Vitals: Vital Signs Temp Pulse Pulse Resp BP Pulse Ox 05/17/18 13:15 82 18 118/65 92 L 05/17/18 13:00 83 18 123/70 97 05/17/18 12:45 82 18 128/76 97 05/17/18 12:27 98.8 F 89 16 127/76 95 05/17/18 09:20 73 16 110/70 98 05/17/18 08:47 98.6 F 92 18 142/90 Intake and Output 05/16/18 05/17/18 05/17/18 22:59 06:59 14:59 Intake Total 1101 Output Total 50 Balance 1051 Intake: IV 1101 Output: Estimated Blood Loss 50 - Constitutional General appearance: average body habitus, no acute distress - EENT Eyes: anicteric sclerae, EOMI, PERRLA, no ptosis, no scleral icterus, normal appearance ENT: hearing grossly normal, NA/AT, normal oropharynx Ears: bilateral: normal - Neck Neck: no lymphadenopathy, normal ROM, no rigidity, no stridor, no thyromegaly Carotids: bilateral: upstroke normal Thyroid: bilateral: normal size - Respiratory Respiratory: bilateral: diminished, negative: dullness, rales, rhonchi, wheezing , prolonged expiration, prolonged inspiration - Cardiovascular Rhythm: regular Heart sounds: normal: S1, S2 Abnormal Heart Sounds: no systolic murmur, no S3 Gallop, no S4 Gallop - Gastrointestinal General gastrointestinal: decreased bowel sounds, soft, no splenomegaly, no tenderness, no umbilical hernia, no ventral hernia - Integumentary Integumentary: normal, normal turgor - Neurologic Neurologic: CNII-XII intact - Musculoskeletal Musculoskeletal: strength equal bilaterally - Psychiatric Psychiatric: A&O x's 3, appropriate affect, intact judgment & insight Assessment and Plan Assessment: Assessment and plan: 1. Post operative day # 0 status post left total knee arthroplasty. Continue current pain management as outlined by orthopedic surgery, continue incentive spirometer, continue DVT prophylaxis, physical therapy evaluation hopefully home in the next 1 or 2 days. 2. Hypertension and hypertensive cardiovascular disease. Continue amlodipine 10 mg orally once every day. 3. GERD. Continue Protonix 40 mg orally once every day. 4. Rheumatoid arthritis. Hold methotrexate and Enbrel for now. 5. Osteoarthritis. Continue current pain management. 6. DVT prophylaxis. Continue with Lovenox 30 mg subcutaneously every 12 hours. 7. GI prophylaxis. Continue with PPI. 8. Thanks for the consult we'll follow with you.
--- NOTE | 2018-05-18 07:01 | P.PN ---
Progress Note - Text Progress Note Date: 05/18/18 Patient is status post left total knee arthroplasty postop day #1 adductor canal catheter day #2. VAS is 3 out of 10 in severity. She is also taking when necessary [place]. She has been ambulating with assistance, tolerating her diet. She has no motor sensory deficits. Catheter site looks clean dry and intact. Continue current therapy.
[2018-05-18] MEDS ORDERED: PANTOPRAZOLE 40 MG TABLET PO SCH (07:30)
[2018-05-18 07:53] VITALS: BP 144/84; PULSE 72; RESP 16; TEMP 98.1
[2018-05-18] MEDS: ENOXAPARIN 30 MG/0.3 ML SYRINGE SQ SCH (08:32)
[2018-05-18] MEDS ORDERED: amLODIPine 5 MG TAB PO SCH (09:00)
[2018-05-18] MEDS ORDERED: MELOXICAM 7.5 MG TAB PO SCH (09:00)
[2018-05-18] MEDS: HYDROcodone/APAP 7.5-325MG 1 EACH TAB PO PRN (09:53)
[2018-05-18 10:11] LABS: Basophils % (A) 0 %; Eosinophils % (A) 0 %; HCT 37.5 % (34.0-46.0); HGB 12.3 gm/dL (11.4-16.0); Lymphocytes # (A) 1.2 k/uL (1.0-4.8); Lymphocytes % (A) 8 %; MCH 30.1 pg (25.0-35.0); MCHC 32.8 g/dL (31.0-37.0); MCV 91.7 fL (80.0-100.0); Mean Platelet Volume 7.5; Monocytes # (A) 0.6 k/uL (0-1.0); Monocytes % (A) 4 %; Neutrophils # (A) 13.6 k/uL (1.3-7.7); Neutrophils % (A) 88 %; Platelet Count 304 k/uL (150-450); RBC 4.09 m/uL (3.80-5.40); RDW 13.3 % (11.5-15.5); WBC 15.6 k/uL (3.8-10.6)
--- NOTE | 2018-05-18 11:06 | P.PN ---
Subjective Progress Note Date: 05/18/18 Principal diagnosis: Status post left total knee arthroplasty Patient seen today resting in hospital bed, she appears comfortable. She's ambulated with therapy. She denies any chest pain, shortness of breath, fever or chills. Objective - Vital Signs Vital signs: Vital Signs Temp 98.1 F 05/18/18 07:49 Pulse 72 05/18/18 07:49 Resp 16 05/18/18 08:05 BP 144/84 05/18/18 07:49 Pulse Ox 96 05/18/18 07:49 Intake & Output 05/17/18 05/18/18 05/18/18 18:59 06:59 18:59 Intake Total 1201 1900 360 Output Total 50 Balance 1151 1900 360 Weight 79.379 kg Intake: IV 1201 Intake, IV Titration 820 Amount Lactated Ringers 1,000 ml 820 @ 20 mls/hr IV .Q24H REESE Rx#:[id number] Oral 1080 360 Output: Estimated Blood Loss 50 Other: Voiding Method Bedpan Toilet # Voids 2 1 # Bowel Movements 0 - Exam Left lower extremity: Incision is clean, dry, and intact. The exofin fusion tape is in good condition. There is minimal soft tissue swelling and ecchymosis surrounding the medial and lateral aspects of the incision. Calf is soft, no tenderness with palpation. Plantar flexion, dorsiflexion, EHL, FHL are intact. Sensory exam to light touch throughout the extremity is intact, dorsal pedis pulses 2+. - Labs CBC & Chem 7: 05/18/18 08:56 Labs: Abnormal Lab Results - Last 24 Hours (Table) 05/18/18 Range/Units 08:56 WBC 15.6 H (3.8-10.6) k/uL Neutrophils # 13.6 H (1.3-7.7) k/uL Assessment and Plan Plan: Assessment: Postop day #1 status post left total knee arthroplasty Plan: Pain control, we'll discharge home on [place] GI and DVT prophylaxis, aspirin 325 mg daily Wound care instructions discussed Home physical therapy and nursing after discharge Icing and elevating techniques discussed Medical recommendations Discharge planning: Patient will be discharged home today Time with Patient: Less than 30
--- NOTE | 2018-05-18 11:10 | P.DS ---
Providers Date of admission: 05/17/18 08:06 Expected date of discharge: 05/18/18 Attending physician: Sid Griffin Consults: 05/17/18 12:14 Consult Physician Routine Consulting Provider: Delores Berumen Consult Reason/Comments: Medical management Do you want consulting provider notified?: Yes Primary care physician: [facility] Course: Date of admission: 05/17/2018 Date of discharge: 05/18/2018 Admission diagnosis: Status post left total knee arthroplasty Discharge diagnosis: Same Attending physician: Dr. Griffin Surgical procedures: Left total knee arthroplasty Brief history: Patient is a 57-year-old female with a history of progressive primary left knee osteoarthritis. At this point patient has failed conservative treatment measures and has opted to proceed with a elective left total knee arthroplasty. Hospital course: Details of patient's surgery can be found in operative report. Patient tolerated the procedure well and was subsequently transported to orthopedic floor. Patient's orthopeidc and medical care was provided daily. Patient had daily laboratory tests performed for evaluation of overall blood counts. Patient had daily physical therapy to include strengthening range of motion as well as education with walker ambulation. Patient had daily CPM usage as part of their physical therapy program. Patient was treated with Lovenox for their postoperative DVT prophylaxis during their inpatient stay. Patient was noted to have a relatively uneventful postoperative course. Patient reported satisfactory pain control with oral pain medications by postoperative day 0. Patient showed satisfactory progress with physical therapy. Patient moved steadily through the program and had no difficulty meeting the goals by postoperative day 1. Given patient's otherwise satisfactory course and having met physical therapy goals, plan is to discharge patient home on postoperative day 1. Discharge condition/disposition: Patient will be discharged home in stable condition. Discharge medications: Instructions are given on resumption of patient's normal daily medications per primary care recommendation, in addition patient will be prescribed Meridian 7.5 mg/325 mg, Colace 100 mg, aspirin 325 mg. Discharge instructions: 1. Wound care and infection precautions, keep incision dry and covered while showering, no lotions, creams, moisturizers. No soaking, tubs, pools, hottubs. Do not scrub over the incision. 2. Weight-bear as tolerated with walker / cane until follow-up. 3. Ice and elevate when necessary. Do not exceed 20 minutes per hour with ice pack. 4. Utilize compression sleeve until seen at first follow up appointment. 5. Visiting nursing care. 6. Home physical therapy including home CPM. 7. Pain meds and anticoagulants per prescription. 8. Pain medication has potential to cause constipation. Increase oral fluid and fiber intake. Contact primary care provider if you have not had a bowel movement within 48 hours after discharge 9. No anti-inflammatory medication until discussed at first post operative visit, this including Motrin, Aleve, Mobic, Diclofenac 10. Follow up in office at 2 weeks postop with Vega Linton PA-C 11. Follow up with your primary care doctor 7-10 days after discharge. 12. Contact [facility] with any questions, . Procedures: Left total knee arthroplasty Patient Condition at Discharge: Good Plan - Discharge Summary Discharge Rx Participant: Yes New Discharge Prescriptions: New Aspirin 325 mg PO DAILY #30 tab Docusate [Colace] 100 mg PO DAILY #30 capsule HYDROcodone/APAP 7.5-325MG [Meridian 7.5] 1 - 2 each PO Q6HR PRN #56 tab PRN Reason: Pain No Action amLODIPine BESYLATE [Amlodipine Besylate] 5 mg PO DAILY Pantoprazole [Protonix] 40 mg PO Q48H Methotrexate Sodium [Methotrexate] 17.5 tab PO Q7D Folic Acid 1 mg PO DAILY Etanercept [Enbrel] 25 mg SQ Q7D Ketorolac [Toradol] 10 mg PO Q6H #20 tab ALPRAZolam [Xanax] 0.5 mg PO DAILY PRN PRN Reason: Anxiety Discharge Medication List Etanercept [Enbrel] 25 mg SQ Q7D 12/13/15 [History] Folic Acid 1 mg PO DAILY 12/13/15 [History] Methotrexate Sodium [Methotrexate] 17.5 tab PO Q7D 12/13/15 [History] Pantoprazole [Protonix] 40 mg PO Q48H 12/13/15 [History] amLODIPine BESYLATE [Amlodipine Besylate] 5 mg PO DAILY 12/13/15 [History] Ketorolac [Toradol] 10 mg PO Q6H #20 tab 04/29/18 [Rx] ALPRAZolam [Xanax] 0.5 mg PO DAILY PRN 05/05/18 [History] Aspirin 325 mg PO DAILY #30 tab 05/18/18 [Rx] Docusate [Colace] 100 mg PO DAILY #30 capsule 05/18/18 [Rx] HYDROcodone/APAP 7.5-325MG [Meridian 7.5] 1 - 2 each PO Q6HR PRN #56 tab 05/18/18 [ Rx] Follow up Appointment(s)/Referral(s): Azam Linton PAC [PHYSICIAN [employer]] - 2 Weeks Activity/Diet/Wound Care/Special Instructions: Orthopedic Discharge Instructions: 1. Wound care and infection precautions, keep incision dry and covered while showering, no lotions, creams, moisturizers. No soaking, pools, hot tubs. Do not scrub over incision. 2. Weight-bear as tolerated with walker / cane until follow-up. 3. Ice and elevate when necessary. Do not exceed 20 minutes per hour with ice pack. 4. Utilize compression sleeve until seen at first follow up appointment. 5. Pain meds and anticoagulants per prescription. 6. Pain medication has potential to cause constipation. Increase oral fluid and fiber intake. Contact primary care provider if you have not had a bowel movement within 48 hours after discharge. 7. No anti-inflammatory medication until discussed at first post operative visit, this including Motrin, Aleve, Mobic, Diclofenac. 8. Follow up in office at 2 weeks postop with Vega Linton PA-C 9. Follow up with your primary care doctor 7-10 days after discharge. 10. Contact [facility] with any questions, . Discharge Disposition: HOME WITH HOME HEALTH SERVICES
[2018-05-18] MEDS ORDERED: MULTIVITAMINS, THERA 1 EACH TAB PO SCH (12:00)
[2018-05-18] MEDS ORDERED: FOLIC ACID 1 MG TAB PO SCH (12:00)
--- NOTE | 2018-05-18 15:03 | P.PN ---
Subjective Progress Note Date: 05/18/18 This is a 57-year-old female one of Dr. Cisneros with a previous medical history significant for hypertension and hypertensive cardiovascular disease with left ventricular hypertrophy, osteoarthritis, GERD, rheumatoid arthritis, trigger finger, patient underwent left total knee arthroplasty that was done successfully by Dr. Dr. Griffin and we were asked to see the patient for medical management. patient stated that she had her left knee operated on 9 times so far between arthroscopic and open surgeries. she is lying down in bed does complain of increased nausea and can not tolerate her diet due to pain meds and anesthetics we have increased her zofran to 4 times daily and if not better will start Scopolamin patch. 05/18: Patient states that she is feeling much better today. Nausea is resolved. She is having pain above the left knee before and a half to 5. She denies having any shortness of breath. Patient has worked with physical therapy. Review of Systems Constitutional: Denies anorexia, Denies chronic headaches, Denies malaise, Denies weakness, Denies weight gain Eyes: denies blurred vision, denies bulging eye, denies decreased vision Ears: deny: decreased hearing Ears, nose, mouth and throat: Denies dysphagia, Denies neck lump Cardiovascular: Reports high blood pressure, Denies chest pain, Denies decreased exercise tolerance, Denies dyspnea on exertion, Denies phlebitis, Denies rapid heart beat, Denies shortness of breath, Denies syncope Respiratory: Denies congestion, Denies cough with sputum, Denies home oxygen, Denies sleep apnea, Denies snoring, Denies wheezing Gastrointestinal: Denies nausea, Reports vomiting, Denies abdominal pain, Denies bloating, Denies BRBPR, Denies heartburn, Denies melena Genitourinary: Denies dysuria, Denies hematuria Musculoskeletal: Denies myalgias Musculoskeletal: left: knee pain, knee stiffness, knee swelling, absent: ankle pain, ankle stiffness, ankle swelling, elbow pain, elbow stiffness, elbow swelling, foot pain, foot stiffness, foot swelling, hand pain, hand stiffness, hand swelling, hip pain, hip stiffness, hip swelling, shoulder pain, shoulder stiffness, shoulder swelling, wrist pain, wrist stiffness, wrist swelling Integumentary: Denies pruritus, Denies rash Neurological: Denies numbness, Denies weakness Psychiatric: Denies anxiety, Denies depression Endocrine: Denies fatigue, Denies weight change Objective - Vital Signs Vital signs: Vital Signs Temp 98.1 F 05/18/18 07:49 Pulse 72 05/18/18 07:49 Resp 16 05/18/18 07:49 BP 144/84 05/18/18 07:49 Pulse Ox 96 05/18/18 07:49 Intake & Output 05/17/18 05/18/18 05/18/18 18:59 06:59 18:59 Intake Total 1201 1900 360 Output Total 50 Balance 1151 1900 360 Weight 79.379 kg Intake: IV 1201 Intake, IV Titration 820 Amount Lactated Ringers 1,000 ml 820 @ 20 mls/hr IV .Q24H REESE Rx#:[id number] Oral 1080 360 Output: Estimated Blood Loss 50 Other: Voiding Method Bedpan # Voids 2 # Bowel Movements 0 - Exam General appearance: average body habitus, no acute distress, patient in recliner - EENT Eyes: anicteric sclerae, EOMI, PERRLA, no ptosis, no scleral icterus, normal appearance ENT: hearing grossly normal, NA/AT, normal oropharynx Ears: bilateral: normal - Neck Neck: no lymphadenopathy, normal ROM, no rigidity, no stridor, no thyromegaly Carotids: bilateral: upstroke normal Thyroid: bilateral: normal size - Respiratory Respiratory: bilateral: diminished, negative: dullness, rales, rhonchi, wheezing , prolonged expiration, prolonged inspiration - Cardiovascular Rhythm: regular Heart sounds: normal: S1, S2 Abnormal Heart Sounds: no systolic murmur, no S3 Gallop, no S4 Gallop - Gastrointestinal General gastrointestinal: decreased bowel sounds, soft, no splenomegaly, no tenderness, no umbilical hernia, no ventral hernia - Integumentary Integumentary: normal, normal turgor - Neurologic Neurologic: CNII-XII intact - Musculoskeletal Musculoskeletal: strength equal bilaterally - Psychiatric Psychiatric: A&O x's 3, appropriate affect, intact judgment & insight - Labs CBC & Chem 7: 05/18/18 08:56 Labs: Abnormal Lab Results - Last 24 Hours (Table) 05/18/18 Range/Units 08:56 WBC 15.6 H (3.8-10.6) k/uL Neutrophils # 13.6 H (1.3-7.7) k/uL Assessment and Plan Plan: 1. Post operative day # 1 status post left total knee arthroplasty. Continue current pain management as outlined by orthopedic surgery, continue incentive spirometer, continue DVT prophylaxis, physical therapy evaluation. 2. Hypertension and hypertensive cardiovascular disease. Continue amlodipine 10 mg orally once every day. 3. GERD. Continue Protonix 40 mg orally once every day. 4. Rheumatoid arthritis. Hold methotrexate and Enbrel for now. 5. Osteoarthritis. Continue current pain management. 6. DVT prophylaxis. Continue with Lovenox 30 mg subcutaneously every 12 hours. 7. GI prophylaxis. Continue with PPI. 8. Thanks for the consult we'll follow with you. Discharge plan: Home Impression and plan of care have been directed as dictated by the signing physician. Renita Ornelas nurse practitioner acting as scribe for signing physician.
== END 2018-05-18 14:21 | disposition home health service (06) | DRG 470 ==
LOC: 2ORMAIN 08:06 → 4SSUR 12:38
PROVIDERS: ADMIT Orthopaedic Surgery; ATTEND Orthopaedic Surgery
PROC: 0SRD0J9 Replacement of Left Knee Joint with Synthetic Substitute, Cemented, Open Approach (ICD-10-PCS; principal; 2018-05-17 10:15)
DX: M17.12 Unilateral primary osteoarthritis, left knee (principal); I11.9 Hypertensive heart disease without heart failure; F41.9 Anxiety disorder, unspecified; K21.9 Gastro-esophageal reflux disease without esophagitis; M06.9 Rheumatoid arthritis, unspecified; K57.90 Diverticulosis of intestine, part unspecified, without perforation or abscess without bleeding; Z79.899 Other long term (current) drug therapy; Z87.891 Personal history of nicotine dependence; Z88.5 Allergy status to narcotic agent; Z83.3 Family history of diabetes mellitus; Z84.1 Family history of disorders of kidney and ureter; Z82.49 Family history of ischemic heart disease and other diseases of the circulatory system
CPT/HCPCS: 85025; 88300

== ENCOUNTER → 2018-06-25 | Outpatient (CLI) | payer MEDICAID ==
--- NOTE | 2018-06-25 16:43 | US ---
EXAMINATION TYPE: US pelvis complete transvag DATE OF EXAM: 06/25/2018 COMPARISON: CT abdomen pelvis 04/29/2018 CLINICAL HISTORY: Previous left ovarian cyst N83.0. Left ovarian cyst. TECHNIQUE: Transvaginal (TV) and Transabdominal (TA) . Transabdominal sonographic images of the pel vis were acquired. Transvaginal sonographic images were medically necessary to better assess the fol lowing anatomy: left adnexa Date of LMP: 12 years ago EXAM MEASUREMENTS: Uterus: 6.9 x 3.2 x 4.1 cm Endometrial Stripe: 0.6 cm Right Ovary: unable to visualize Left Ovary: unable to visualize 1. Uterus: Retroverted heterogeneous 2. Endometrium: appears wnl 3. Right Ovary: Obscured by overlying bowel gas 4. Left Ovary: Obscured by overlying bowel gas 5. Bilateral Adnexa: cluster of anechoic areas = 5.3 x 1.8 x 4.7 left adnexa, unable to visualize a ny ovarian tissue ?ovarian cyst vs. fluid filled tube 6. Posterior cul-de-sac: appears wnl Urinary bladder is sonolucent. Posterior wall is normal. IMPRESSION: 1. Several large cysts or septated cysts are within the left adnexal region. Findings correspond to the CT examination of 04/29/2018. Consider hydrosalpinx versus several left ovarian cysts.
== END | disposition home or self-care (01) ==
LOC: RADUSWWP 13:33
PROVIDERS: ATTEND Obstetrics & Gynecology
DX: N83.202 Unspecified ovarian cyst, left side (principal)
CPT/HCPCS: 76830; 76856

== ENCOUNTER → 2018-06-30 | Outpatient (CLI) | payer MEDICAID | END | disposition home or self-care (01) | LOC: LABWHC1 13:41 | PROVIDERS: ATTEND Obstetrics & Gynecology | DX: N83.209 Unspecified ovarian cyst, unspecified side (principal) | CPT/HCPCS: 36415; 86304 ==

== ENCOUNTER → 2018-08-24 | Outpatient (CLI) | payer MEDICAID ==
--- NOTE | 2018-08-25 08:34 | US ---
EXAMINATION TYPE: US pelvis complete transvag DATE OF EXAM: 08/24/2018 COMPARISON: US 06/25/2018, CT 04/29/2018 CLINICAL HISTORY: N83.0 OVARIAN CYST. Left ovarian cyst. No vaginal bleeding TECHNIQUE: . Transabdominal sonographic images of the pelvis were acquired. Transvaginal sonographi c images were medically necessary to better assess the following anatomy: Uterus and ovaries Date of LMP: About 12 years ago EXAM MEASUREMENTS: Uterus: 5.8 x 2.9 x 3.8 cm Endometrial Stripe: 0.5 cm Right Ovary: Not visualized Left Ovary: Not visualized with certainty 1. Uterus: Retroverted Heterogeneous. Hypoechoic area visualized measuring 0.8 x 0.6 x 0.7 cm. Nabot hian cysts visualized 2. Endometrium: Thickened. Hyperechoic area visualized within measuring 0.6 x 0.4 x 0.7 cm with vasc ularity within- possible polyp vs other 3. Right Ovary: Not visualized 4. Left Ovary: Within the left adnexa, there is a multi-cystic area visualized with thicker septatio ns measuring 4.9 x 3.0 x 2.9 cm 5. Bilateral Adnexa: See above 6. Posterior cul-de-sac: wnl IMPRESSION: 1. Leiomyomatous uterus suspected. 2. Nonspecific thickening of the endometrium. Polyp not excluded. Consider direct visualization. 3. Left adnexal multicystic lesion with thick septations. Neoplasm not excluded.
== END | disposition home or self-care (01) ==
LOC: RADUSWWP 15:35
PROVIDERS: ATTEND Obstetrics & Gynecology
DX: N83.8 Other noninflammatory disorders of ovary, fallopian tube and broad ligament (principal); R93.89 Abnormal findings on diagnostic imaging of other specified body structures; R31.9 Hematuria, unspecified
CPT/HCPCS: 76830; 76856

== ENCOUNTER → 2018-09-02 | Outpatient (CLI) | payer MEDICAID ==
--- NOTE | 2018-09-03 11:52 | MM ---
Reason for exam: screening (asymptomatic). Physical Findings: A clinical breast exam by your physician is recommended on an annual basis and results should be correlated with mammographic findings. MG Screening Mammo w CAD Bilateral CC and MLO view(s) were taken. The breast tissue is heterogeneously dense. This may lower the sensitivity of mammography. Finding: There is a 5 mm circumscribed oval mass in the upper quadrant, middle position of the left breast. Focal asymmetry left subareolar CC view only. ASSESSMENT: Incomplete: need additional imaging evaluation, BI-RAD 0 RECOMMENDATION: Special view mammogram of the left breast. If lesion persists on supplemental views, image directed ultrasound is recommended. [facility] will attempt to contact patient to return for supplemental views and ultrasound if indicated.
== END | disposition home or self-care (01) ==
LOC: RADMAMWWP 15:34
PROVIDERS: ATTEND Obstetrics & Gynecology
DX: Z12.31 Encounter for screening mammogram for malignant neoplasm of breast (principal)
CPT/HCPCS: 77067

== ENCOUNTER → 2018-09-08 | Outpatient (CLI) | payer MEDICAID ==
--- NOTE | 2018-09-09 08:56 | MM ---
Reason for exam: additional evaluation requested from abnormal screening. Last mammogram was performed less than 1 month ago. History: Patient is postmenopausal. Physical Findings: Nurse did not find any significant physical abnormalities on exam. MG Work Up Mamm w CAD LT Spot compression CC, spot compression MLO, and ML view(s) were taken of the left breast. Prior study comparison: September 02, 2018, bilateral MG screening mammo w CAD. The breast tissue is heterogeneously dense. This may lower the sensitivity of mammography. No significant new findings when compared with previous films. These results were verbally communicated with the patient and result sheet given to the patient on 09/08/18. ASSESSMENT: Probably benign, BI-RAD 3 RECOMMENDATION: Follow-up diagnostic mammogram of the left breast in 6 months.
== END | disposition home or self-care (01) ==
LOC: RADMAMWWP 14:52
PROVIDERS: ATTEND Obstetrics & Gynecology
DX: R92.8 Other abnormal and inconclusive findings on diagnostic imaging of breast (principal)
CPT/HCPCS: 77065

== ENCOUNTER → 2018-09-14 | Outpatient (CLI) | payer MEDICAID ==
[2018-09-14 16:44] LABS: Basophils # (A) 0.1 k/uL (0-0.2); Basophils % (A) 1 %; Eosinophils # (A) 0.4 k/uL (0-0.7); Eosinophils % (A) 5 %; Lymphocytes # (A) 2.4 k/uL (1.0-4.8); Lymphocytes % (A) 29 %; MCH 28.6 pg (25.0-35.0); MCHC 32.6 g/dL (31.0-37.0); MCV 87.7 fL (80.0-100.0); Mean Platelet Volume 7.2; Monocytes # (A) 0.4 k/uL (0-1.0); Monocytes % (A) 5 %; Neutrophils # (A) 4.6 k/uL (1.3-7.7); Neutrophils % (A) 58 %; Platelet Count 278 k/uL (150-450); RBC 4.91 m/uL (3.80-5.40); RDW 14.3 % (11.5-15.5)
== END | disposition home or self-care (01) ==
LOC: LABPAT 15:52
PROVIDERS: ATTEND Obstetrics & Gynecology
DX: Z01.812 Encounter for preprocedural laboratory examination (principal)
CPT/HCPCS: 36415; 85025

== ENCOUNTER 2018-09-24 05:55 | Day surgery (SDC) | payer MEDICAID ==
--- NOTE | 2018-09-23 19:46 | P.HPOB ---
History of Present Illness H&P Date: 09/23/18 Chief Complaint: Possible endometrial polyp, MIR I This is a 57 y.o. female, 3, para 2, who presents for loop electrocautery excision procedure with colposcopy due to MIR I and dilatation and curettage with hysteroscopy for possible endometrial polyp. Colposcopy was performed on 08/20/2018 that showed MIR-1 on endocervical curettings and biopsy at 6 o'clock position. Her pelvic ultrasound showed a uterus measuring 5.8 x 2.9 x 3.8 cm with a possible less than 1 cm fibroid and endometrial thickness of 0.5 cm. There was a thickened area with vascularity within the endometrium measuring 0.6 x 0.7 cm with a possible polyp. She still has a left adnexal complex multicystic area with septation measuring 4.9 x 3 cm which is smaller than her previous ultrasound. She denies any postmenopausal bleeding. Obstetrical history: . History of 2 vaginal deliveries and 1 miscarriage. Gynecologic history: No history of sexual transmitted diseases. Menopause was at age 44. Social history: She is . 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 Review of Systems Constitutional: Reports fatigue, Reports night sweats, Reports weight gain Eyes: denies blurred vision, denies pain Ears, nose, mouth and throat: Denies headache, Denies sore throat Cardiovascular: Denies chest pain, Denies shortness of breath Respiratory: Denies cough Gastrointestinal: Reports abdominal pain Genitourinary: Denies dysuria, Denies hematuria Menstruation: Reports amenorrhea Musculoskeletal: Reports low back pain, Reports myalgias Integumentary: Denies pruritus, Denies rash Neurological: Denies numbness, Denies weakness Psychiatric: Reports anxiety, Reports depression, Reports difficulty concentrating Past Medical History Past Medical History: GERD/Reflux, Hypertension, Rheumatoid Arthritis (RA) Additional Past Medical History / Comment(s): DIVERTICULOSIS History of Any Multi-Drug Resistant Organisms: None Reported Past Surgical History: Orthopedic Surgery Additional Past Surgical History / Comment(s): KNEE SURGERIES LEFT X 10. LEFT ELBOW BURSECTOMY. D&C Past Anesthesia/Blood Transfusion Reactions: No Reported Reaction, Family History of Problems w/ Anesthesia Additional Past Anesthesia/Blood Transfusion Reaction / Comment(s): daughter experiences passing out after anesthesia Smoking Status: Former smoker Past Alcohol Use History: Rare Past Drug Use History: None Reported - Past Family History Mother Family Medical History: Diabetes Mellitus, Hypertension Father Family Medical History: Hypertension, Renal Disease Brother(s) Family Medical History: Diabetes Mellitus Sister(s) Family Medical History: Diabetes Mellitus Daughter(s) Family Medical History: No Reported History Son(s) Family Medical History: No Reported History Medications and Allergies Home Medications Medication Instructions Recorded Confirmed Type Etanercept [Enbrel] 25 mg SQ Q7D 12/13/15 09/22/18 History Methotrexate Sodium [Methotrexate] 17.5 tab PO Q7D 12/13/15 09/22/18 History Pantoprazole [Protonix] 40 mg PO Q48H 12/13/15 09/22/18 History amLODIPine BESYLATE [Amlodipine 5 mg PO DAILY 12/13/15 09/22/18 History Besylate] ALPRAZolam [Xanax] 0.5 mg PO DAILY PRN 05/05/18 09/22/18 History Allergies Allergy/AdvReac Type Severity Reaction Status Date / Time hydrocodone [From Vicodin] Allergy Unknown sweating,blood Verified 09/22/18 13:18 pressure,n&v,dizziness oxycodone [From Percocet] Allergy Unknown sweating,bloodpressure Verified 09/22/18 13:18 drops,n/v, dizziness hydromorphone [From Dilaudid] Allergy sweating, Verified 09/22/18 13:18 blood pressure dropped, n/v,dizziness Exam Osteopathic Statement: *. No significant issues noted on an osteopathic structural exam other than those noted in the History and Physical/Consult. HEENT: Within normal limits Heart: Regular rate and rhythm Lungs: Clear to auscultation bilaterally Abdomen: Soft, nontender Pelvic exam: Uterus is mid position, no adnexal masses or tenderness are noted. Second-degree uterine prolapse and cystocele are noted. Extremities: Negative Homans Assessment and Plan (1) Dysplasia of cervix, low grade (MIR 1) Status: Acute Code(s): N87.0 - MILD CERVICAL DYSPLASIA SNOMED Code(s): 262252871 (2) Endometrial polyp Status: Acute Code(s): N84.0 - POLYP OF CORPUS UTERI SNOMED Code(s): 10230397 Plan: Proceed with colposcopy with loop electrocautery excision procedure and dilation and curettage with hysteroscopy. I have discussed the risks, benefits, and alternative therapies for the above- mentioned procedure and for both sedation/anesthesia as well as necessary blood products administration, if indicated, as they pertain to this patient. The patient has indicated her understanding and acceptance of the risks and procedures discussed.
[~2018-09-24 05:55] MED LIST changes: -ACETAMINOPHEN TAB 500 MG TAB PO ONE; -LIDOCAINE 1% 20 ML VIAL (10MG/ML) FOR IV START INTRADERMA PRN; -MELOXICAM 7.5 MG TAB PO ONE; -MIDAZOLAM (PF) 2 MG/2 ML VIAL IV PRN; +MORPHINE SULFATE 2 MG/ML SYRINGE IV PRN; -SCOPOLAMINE 1.5MG/72HR PATCH TRANSDERM ONE; -TRANEXAMIC ACID 1,000 MG in SODIUM CHLORIDE 0.9% 50 ML IVPB ONE; -ceFAZolin IN SWFI 2 GM/20 ML SYRINGE IVP ONE
[2018-09-24] MEDS ORDERED: LIDOCAINE 1% 20 ML VIAL (10MG/ML) FOR IV START INTRADERMA ONE (06:36)
[2018-09-24] MEDS ORDERED: KETOROLAC 30 MG/ML 1 ML VIAL ONE (06:58)
[2018-09-24] MEDS ORDERED: MIDAZOLAM 2 MG/2 ML VIAL ONE (06:58)
[2018-09-24] MEDS ORDERED: PROPOFOL 10 MG/ML 20 ML VIAL IV ONE (06:58)
[2018-09-24] MEDS ORDERED: fentaNYL (PF) 50 MCG/ML 2 ML AMP ONE (06:58)
[2018-09-24] MEDS ORDERED: LIDOCAINE 1% INJ 10MG/ML (20 ML MDV) ONE (06:58)
[2018-09-24] MEDS ORDERED: ACETIC ACID 15 DROPS/ML DROPS MISCELLANE ONE (07:15)
[2018-09-24] MEDS ORDERED: BUPIVACAINE (PF) 0.5% 30 ML VIAL SQ ONE (07:15)
[2018-09-24] MEDS ORDERED: IODINE/POTASS IOD (LUGOLS) 14 ML BTL TOPICAL ONE (07:15)
[2018-09-24] MEDS ORDERED: FERRIC SUBSULFATE (MONSELS) JAR TOPICAL ONE (07:15)
[2018-09-24] MEDS ORDERED: LIDOCAINE 1%-EPI 1:100,000 30 ML VIAL SQ ONE (07:15)
[2018-09-24 08:03] VITALS: TEMP 98
[2018-09-24 08:22] VITALS: RESP 18
--- NOTE | 2018-09-24 08:44 | P.OP ---
Date of Procedure: 09/24/18 Preoperative Diagnosis: MIR-1 Endometrial polyp Postoperative Diagnosis: Same Procedure(s) Performed: Loop electrocautery excision procedure with colposcopy Dilation and curettage with hysteroscopy Anesthesia: other (Mask general) Surgeon: Cristela Leroy Estimated Blood Loss (ml): 10 Pathology: other (Ectocervix with 12 o'clock position marked with a white suture and 6 o'clock position marked with a black suture, endocervix is separate piece. Second specimen is endometrial curettings) Condition: stable Disposition: same day Indications for Procedure: This is a 57 y.o. female, 3, para 2, who presents for loop electrocautery excision procedure with colposcopy due to MIR I and dilatation and curettage with hysteroscopy for possible endometrial polyp. Colposcopy was performed on 08/20/2018 that showed MIR-1 on endocervical curettings and biopsy at 6 o'clock position. Her pelvic ultrasound showed a uterus measuring 5.8 x 2.9 x 3.8 cm with a possible less than 1 cm fibroid and endometrial thickness of 0.5 cm. There was a thickened area with vascularity within the endometrium measuring 0.6 x 0.7 cm with a possible polyp. She still has a left adnexal complex multicystic area with septation measuring 4.9 x 3 cm which is smaller than her previous ultrasound. She denies any postmenopausal bleeding. Operative Findings: Uterus is retroverted and sounded to 7 cm. Grade 2 uterine prolapse is noted and grade 3 cystocele is noted. No adnexal masses are palpated. Upon colposcopy, acetowhite and Lugol white areas were noted along the 7 to 8:00 border. No mosaicism was noted. Upon hysteroscopy, a fairly large posterior endometrial polyp was noted. The left tubal ostia was visualized and the right tubal ostia was not completely visualized. Overall atrophic endometrium was noted. Minimal endometrial curettings are obtained. Description of Procedure: The patient was taken to the operating room where she is placed in the dorsal lithotomy position. She is prepped and draped in the normal sterile fashion. Her bladder is drained with a catheter and then removed. Pelvic exam is performed under anesthesia. Uterus is found to be retroverted and small. No adnexal masses are palpated. There is noted to be grade 2 uterine prolapse and grade 3 cystocele. Next a coated bivalve speculum was placed in the patient's vagina. Colposcopy was performed using a blue light. The cervix was swabbed with 5% acetic acid. The above noted findings are made. Next the cervix is swabbed with Lugol solution and the same findings are noted. Next the cervix was injected circumferentially using a spinal needle with a 50-50 mixture of 1% lidocaine with epinephrine and half percent Marcaine. Approximately 7 mL were used. Next a large loop was used with 35 W of cutting power to swipe from left to right to remove the upper portion of the ectocervix. Next the same procedure was used to remove the lower portion of the ectocervix. Next a small loop was used to remove the endocervix. The 12 o'clock position of the ectocervix was marked with a white stitch and the 6 o'clock position was marked with a black stitch. Next the ball-tipped cautery was used to cauterize the bed left behind. Excellent hemostasis was noted. Next the coated speculum was removed and gloves were changed. Next a weighted speculum was placed in the patient's vagina and a right angle retractor was used to visualize the cervix. The anterior lip of the cervix is grasped with a single-tooth tenaculum. Next the uterus is sounded to 7 cm. Cervix is gently dilated with Trevino dilators until a hysteroscope could be passed. Hysteroscopy is performed using normal saline. The above noted findings are made and pictures are taken. Next the hysteroscope was withdrawn and the cervix is gently dilated further. A polyp forceps was introduced and a fairly large amount of polypoid type tissue was obtained. Next a medium-size sharp curet was introduced and sharp curettage was performed until a gritty texture was noted. Minimal further tissue was obtained. Next the single-tooth tenaculum was removed. Monsel solution was applied to the cervix. Excellent hemostasis was noted. All instruments are removed from the vagina. All sponge and needle counts are correct.
[2018-09-24 09:52] VITALS: BP 121/82; PULSE 76
== END 2018-09-24 10:00 | disposition home or self-care (01) ==
LOC: OR 05:55
PROVIDERS: ATTEND Obstetrics & Gynecology
DX: N87.0 Mild cervical dysplasia (principal); N84.0 Polyp of corpus uteri; N81.2 Incomplete uterovaginal prolapse; K21.9 Gastro-esophageal reflux disease without esophagitis; I10 Essential (primary) hypertension; M06.9 Rheumatoid arthritis, unspecified; Z87.891 Personal history of nicotine dependence; Z79.899 Other long term (current) drug therapy; Z88.5 Allergy status to narcotic agent
CPT/HCPCS: 88305; 88307; 57522; 58558; J2250; J1100; J2405; J2001; J3010; J1885; J2704

== ENCOUNTER → 2018-09-29 | Outpatient (CLI) | payer MEDICAID ==
--- NOTE | 2018-09-30 19:18 | BD ---
EXAMINATION TYPE: Axial Bone Density DATE OF EXAM: 09/29/2018 COMPARISON: NONE CLINICAL HISTORY: 57-year-old female screening for osteoporosis Height: 63.7 IN Weight: 178 LBS FRAX RISK QUESTIONS: Secondary Osteoporosis: 3. Menopause before 45: YES AGE 45 Rheumatoid Arthritis: YES RISK FACTORS HISTORY OF: Active: YES Diet low in dairy products/other sources of calcium: YES Postmenopausal woman: AGE 45 MEDICATIONS: Additional Medications: FOLIC ACID, EMBRIL, METHOTREXATE, AMLODIPINE,PROTONICS EXAM MEASUREMENTS: Bone mineral densitometry was performed using the [employer] System. Bone mineral density as measured about the Lumbar spine is: ----- L1-L4(G/cm2): 1.201 T Score Values are as follows: ----- L2: -0.2 ----- L3: 0.7 ----- L4: 0.2 ----- L1-L4: 0.2 Bone mineral density BASELINE Bone mineral density about the R hip (g/cm2): 0.895 Bone mineral density about the L hip (g/cm2): 0.959 T Score values are as follows: -----R Neck: -1.0 -----L Neck: -0.6 -----R Total: -0.6 -----L Total: -0.6 Bone mineral density BASELINE IMPRESSION: Normal (Values between +1 and -1 indicate normal bone mass). However, note that measurements border o n osteopenia at the right hip. Consider repeating this study in 5 years or sooner if there is some new clinical indication. NOTE: T-SCORE=SD OF THE YOUNG ADULT MEAN.
== END | disposition home or self-care (01) ==
LOC: RADBDWWP 15:37
PROVIDERS: ATTEND Obstetrics & Gynecology
DX: Z13.820 Encounter for screening for osteoporosis (principal)
CPT/HCPCS: 77080

== ENCOUNTER → 2018-10-12 | Outpatient (CLI) | payer MEDICAID ==
--- NOTE | 2018-10-12 17:32 | US ---
EXAMINATION TYPE: US pelvis complete transvag DATE OF EXAM: 10/12/2018 COMPARISON: NONE CLINICAL HISTORY: 57-year-old female N84.0 ENDOMETRIAL POLYP,D25.9 LEIOMYOMA OF UTERUS. Polyp removed , left ovarian cyst seen TECHNIQUE: Transabdominal sonographic images of the pelvis were acquired. Transvaginal sonographic images Date of LMP: 12yrs ago FINDINGS: EXAM MEASUREMENTS: Uterus: 6.6 x 4.0 x 4.1 cm Endometrial Stripe: 4.6 mm. Right Ovary: not seen Left Ovary: 5.4 x 2.8 x 3.6 cm 1. Uterus: Retroverted . Heterogeneous, nabothian cysts within cervix 2. Endometrium: wnl 3. Right Ovary: not seen due to bowel gas 4. Left Ovary: 5.3cm cluster of cysts versus complex cyst with internal septations. 5. Bilateral Adn exa: wnl 6. Posterior cul-de-sac: wnl IMPRESSION: 1. Retroverted uterus. Previous endometrial polyp is no longer seen. Endometrial stripe measures 4.6 mm. 2. Redemonstrated multicystic versus complex cystic lesion in the left adnexa. This measures 5.3 cm v ersus 4.9 cm on 08/24/2018. Neoplasm, probably benign such as serous cystadenoma is considered given s eptations are less than 3 mm in thickness. Consider surgical evaluation. 3. Right ovary not seen.
== END | disposition home or self-care (01) ==
LOC: RADUSWWP 15:38
PROVIDERS: ATTEND Obstetrics & Gynecology
DX: N85.4 Malposition of uterus (principal); D25.9 Leiomyoma of uterus, unspecified
CPT/HCPCS: 76830; 76856

== ENCOUNTER → 2019-01-17 | Outpatient (CLI) | payer MEDICAID ==
--- NOTE | 2019-01-18 12:00 | US ---
EXAMINATION TYPE: US pelvis complete transvag DATE OF EXAM: 01/17/2019 COMPARISON: [facility] US[facility] CLINICAL HISTORY: N83.0 Left Ovarian Cyst. TECHNIQUE: Transvaginal (TV) and Transabdominal (TA) . Transabdominal sonographic images of the pel vis were acquired. Transvaginal sonographic images were medically necessary to better assess the fol lowing anatomy: left adnexa Date of LMP: 14 years ago, no HRT EXAM MEASUREMENTS: Uterus: 6.0 x 3.6 x 3.8 cm Endometrial Stripe: 0.4 cm Right Ovary: not seen due to bowel gas cm Left Ovary: Large cystic mass occupying the ovary and obscuring any abnormal tissue. 1. Uterus: Retroverted wnl 2. Endometrium: fluid filled, there is an echogenic area that measures 0.7 x 0.3 x 0.5 cm at the rig ht lateral aspect of the uterine endometrium in the fundus that is avascular. 3. Right Ovary: not seen due to bowel gas 4. Left Ovary: Large cystic mass with septations measures 5.4 x 2.6 x 4.8 cm. There appears to be f low within septations. Spectral, color and waveform doppler imaging shows good arterial and venous flow within the ovaries ; there is no evidence for ovarian torsion. 5. Bilateral Adnexa: wnl 6. Posterior cul-de-sac: no free fluid IMPRESSION: 1. Prominent amount of fluid within the endometrium with right lateral focal thickening of the endome trial fundus. Endometrial polyp or hyperplasia and cervical stenosis should be considered. 2. Complex cystic mass in the left adnexa with thick internal septations containing vascular flow. Th is mass measures 5.4 cm and is concerning for neoplasm. Gynecologic/oncologic consultation is recomme nded. 3. Nonvisualization of the right ovary secondary to overlying bowel gas.
== END | disposition home or self-care (01) ==
LOC: RADUSWWP 15:35
PROVIDERS: ATTEND Obstetrics & Gynecology
DX: R93.89 Abnormal findings on diagnostic imaging of other specified body structures (principal); R19.09 Other intra-abdominal and pelvic swelling, mass and lump
CPT/HCPCS: 76830; 76856

== ENCOUNTER → 2019-03-18 | Outpatient (CLI) | payer MEDICAID ==
[2019-03-18 15:19] LABS: African American GFR (CKD) >90 (>60 ml/min/1.73 sqM); Anion Gap 8 mmol/L; Blood Urea Nitrogen 11 mg/dL (7-17); Calcium 9.4 mg/dL (8.4-10.2); Carbon Dioxide 25 mmol/L (22-30); Chloride 108 mmol/L (98-107); Glucose 81 mg/dL (74-99); Potassium 4.3 mmol/L (3.5-5.1); Sodium 141 mmol/L (137-145)
== END | disposition home or self-care (01) ==
LOC: LABPAT 14:01
PROVIDERS: ATTEND Obstetrics & Gynecology
DX: Z01.812 Encounter for preprocedural laboratory examination (principal); Z01.818 Encounter for other preprocedural examination
CPT/HCPCS: 36415; 80048

== ENCOUNTER 2019-03-24 05:56 | Observation (INO) | payer MEDICAID ==
[2019-03-21 09:20] VITALS: BMI 29.2
[~2019-03-24 05:56] MED LIST changes: -HYDROmorphone 0.5 MG/0.5 ML SYRINGE IVP PRN; -MORPHINE SULFATE 2 MG/ML SYRINGE IV PRN; -ONDANSETRON 4 MG/2 ML VIAL IVP ONE
--- NOTE | 2019-03-24 06:18 | P.HPOB ---
History of Present Illness H&P Date: 03/24/19 Chief Complaint: pelvic pain 58 year old presents for total laparoscopic hysterectomy, bilateral salpingo-oopherectomy with da mayco and diagnostic cystoscopy. She has been in pain from her pelvis for the last year. There is a stable 5cm cyst on her left ovary. Review of Systems All systems: negative Constitutional: Denies chills, Denies fever Eyes: denies blurred vision, denies pain Ears, nose, mouth and throat: Denies headache, Denies sore throat Cardiovascular: Denies chest pain, Denies shortness of breath Respiratory: Denies cough Gastrointestinal: Denies abdominal pain, Denies diarrhea, Denies nausea, Denies vomiting Genitourinary: Denies dysuria, Denies hematuria Musculoskeletal: Denies myalgias Integumentary: Denies pruritus, Denies rash Neurological: Denies numbness, Denies weakness Psychiatric: Denies anxiety, Denies depression Endocrine: Denies fatigue, Denies weight change Past Medical History Past Medical History: GERD/Reflux, Hypertension, Rheumatoid Arthritis (RA) Additional Past Medical History / Comment(s): DIVERTICULOSIS, elevated liver enzymes recently- monitoring History of Any Multi-Drug Resistant Organisms: None Reported Past Surgical History: Joint Replacement, Orthopedic Surgery Additional Past Surgical History / Comment(s): KNEE SURGERIES LEFT X 9, left knee replaced, D & C Past Anesthesia/Blood Transfusion Reactions: No Reported Reaction, Family History of Problems w/ Anesthesia Additional Past Anesthesia/Blood Transfusion Reaction / Comment(s): daughter passed out after wisdom teeth removed, fine w/anesthesia since Smoking Status: Never smoker - Past Family History Mother Family Medical History: Diabetes Mellitus, Hypertension Father Family Medical History: Hypertension, Renal Disease Brother(s) Family Medical History: Diabetes Mellitus Sister(s) Family Medical History: Diabetes Mellitus Daughter(s) Family Medical History: No Reported History Son(s) Family Medical History: No Reported History Medications and Allergies Home Medications Medication Instructions Recorded Confirmed Type Etanercept [Enbrel] 25 mg SQ Q7D 12/13/15 03/21/19 History Pantoprazole [Protonix] 40 mg PO Q48H 12/13/15 03/21/19 History amLODIPine BESYLATE [Amlodipine 5 mg PO DAILY 12/13/15 03/21/19 History Besylate] ALPRAZolam [Xanax] 0.5 mg PO DAILY PRN 05/05/18 03/21/19 History Folic Acid 1 mg PO DAILY 09/24/18 03/21/19 History Allergies Allergy/AdvReac Type Severity Reaction Status Date / Time hydrocodone [From Vicodin] Allergy Unknown sweating,blood Verified 03/21/19 08:30 pressure,n&v,dizziness oxycodone [From Percocet] Allergy Unknown sweating,bloodpressure Verified 03/21/19 08:30 drops,n/v, dizziness hydromorphone [From Dilaudid] Allergy sweating, Verified 03/21/19 08:30 blood pressure dropped, n/v,dizziness Exam Osteopathic Statement: *. No significant issues noted on an osteopathic structural exam other than those noted in the History and Physical/Consult. HEart: RRR Lungs: CTAB Abdomen: soft, nontender Extremeties: neg klarissa's Assessment and Plan (1) Pelvic pain Current Visit: Yes Status: Acute Code(s): R10.2 - PELVIC AND PERINEAL PAIN SNOMED Code(s): 92176570 (2) Ovarian cyst, left Current Visit: Yes Status: Acute Code(s): N83.202 - UNSPECIFIED OVARIAN CYST, LEFT SIDE SNOMED Code(s): 49987237 Plan: 1. [facility] BSO with da mayco and diagnostic cystoscopy. We discussed and she is aware of all risks, benefits and alternatives. She knows this could become a laparotomy, there is risk of damaging other organs like bowel, bladder, blood vessels, and risks with anesthesia like nausea, vomitting and even .
[2019-03-24] MEDS: ONDANSETRON 4 MG/2 ML VIAL IVP ONE ×2 (06:45→09:10)
[2019-03-24] MEDS ORDERED: DEXAMETHASONE SOD PHOS (MDV) 100 MG/10 ML VIAL IVP ONE (06:45)
[2019-03-24] MEDS ORDERED: GLYCOPYRROLATE 0.2 MG/ML 2 ML VIAL ONE (07:16)
[2019-03-24] MEDS ORDERED: ROCURONIUM BROMIDE 10 MG/ML 10 ML VIAL IV ONE (07:16)
[2019-03-24] MEDS ORDERED: NEOSTIGMINE 1 MG/ML 10 ML VIAL ONE (07:16)
[2019-03-24] MEDS ORDERED: MIDAZOLAM 2 MG/2 ML VIAL ONE (07:16)
[2019-03-24] MEDS ORDERED: PROPOFOL 10 MG/ML 20 ML VIAL IV ONE (07:16)
[2019-03-24] MEDS ORDERED: KETOROLAC 30 MG/ML 1 ML VIAL ONE (07:16)
[2019-03-24] MEDS ORDERED: fentaNYL (PF) 50 MCG/ML 2 ML AMP ONE (07:16)
[2019-03-24] MEDS ORDERED: SUCCINYLCHOLINE CHLORIDE 100 MG/5 ML SYR IV ONE (07:16)
[2019-03-24] MEDS ORDERED: BUPIVACAINE (PF) 0.25% 30 ML VIAL SQ ONE (07:22)
--- NOTE | 2019-03-24 07:25 | P.OP ---
Date of Procedure: 03/24/19 Preoperative Diagnosis: 1. pelvic pain 2. Left ovarian cyst Postoperative Diagnosis: 1. Pelvic pain Procedure(s) Performed: Total laparoscopic hysterectomy and bilateral salpingo-oophorectomy with da Hector, diagnostic cystoscopy Anesthesia: SHAHBAZ Surgeon: Kerline Hensley Separating Machine Operator #1: [address] Estimated Blood Loss (ml): 5 IV fluids (ml): 800 Urine output (ml): 150 Pathology: other (Uterus cervix, bilateral tubes and ovaries) Condition: stable Disposition: PACU Operative Findings: Normal uterus. The left fallopian tube was a hydrosalpinx. Normal bilateral ovaries, normal right fallopian tube. She did have a grade 2 cystocele at the beginning of the procedure which went onto a grade 1 at the end of the procedure. Description of Procedure: Patient taken the operating room where general anesthesia was obtained without difficulty. She is prepped and draped in normal sterile fashion dorsal lithotomy position, legs placed in the Sky stirrups. Weighted speculum placed in the vagina and the anterior lip the cervix was grasped with single-tooth tenaculum. The uterus sounded to 7 cm and the cervix diameter was 3 cm. The appropriate manipulator tip and ring were placed on the Parris manipulator. The Parris manipulator was then placed in the uterus. Harris catheter was also placed. Attention was then turned to the abdomen and gloves were changed. A 5 mm supra umbilical incision was made the scalpel and a 5 mm optical trocar was placed under direct visualization. 10 cm to the right of this and 2 cm down a 5 mm incision was made and 8 mm da Hector port was placed under direct visualization. Same measurements on the opposite side of the patient's abdomen, the 5 mm incision was made and 8 mm da Hector port was placed under direct visualization. In the left upper quadrant a 10 mm incision was made and a 10 mm optical trocar was placed under direct visualization. The 5 mm optical trocar was then replaced with the 8 mm da Hector camera port. The robot was docked on patient's right side. The camera was introduced and then the monopolar curved scissor and [place] bipolar placed under direct visualization. I broke scrub and went to the physician console. The left infundibulopelvic ligament was cauterized with the [place] bipolar and cut with monopolar curved scissors. The left round ligament was cauterized with the [place] bipolar and cut with monopolar curved scissors. The posterior leaf of the broad ligament was taken down using the monopolar curved scissors. Anterior leaf of the broad ligament was then taken down using the monopolar curved scissors. The uterine artery was cauterized with the [place] bipolar and cut with monopolar curved scissors. The bladder flap was then started using the monopolar curved scissors. Attention was then turned to the right side of the patient's anatomy and the right infundibular pelvic ligament was cauterized with the [place] bipolar and cut with monopolar curved scissors. The right round ligament was cauterized with the [place] bipolar and cut with monopolar curved scissors. Posterior leaf of the broad ligament was taken down using the monopolar curved scissors and the anterior le af was taken down using the monopolar curved scissors. The uterine artery was cauterized the [place] bipolar cut with monopolar curved scissors. The bladder flap was then finished on this side. Anterior colpotomy was made using the monopolar curved scissors. The rest of the uterus was from the vaginal cuff by following the ring around with the monopolar curved scissors through the uterosacral ligaments back to the anterior portion. Once the uterus and cervix were amputated they were pulled through the vaginal cuff. Hemostasis was assured. The instruments were changed for the Cardier forcep and the pramod suture cut. The vaginal cuff was then closed using O stratafix barbed suture in a running fashion. Hemostasis was again assured and the pelvis was irrigated. All instruments were removed from the abdomen and the robot was undocked. I scrubbed back in to perform a cystoscopy. There were jets from both ureteral orifices. The abdominal incisions were closed with 4-0 Vicryl in a subcuticular fashion. Patient tolerated the procedure well, sponge and instrument counts correct 2 and she was taken to recovery room in stable condition condition
[2019-03-24] MEDS: fentaNYL (PF) 50 MCG/ML 2 ML AMP IV PRN ×2 (09:10→09:44)
[2019-03-24] MEDS ORDERED: diphenhydrAMINE 50 MG/ML 1 ML VIAL IVP PRN (09:38)
[2019-03-24] MEDS ORDERED: ALPRAZolam 0.5 MG TAB PO PRN (09:38)
[2019-03-24] MEDS ORDERED: Acetaminophen-Codeine 300-30mg TAB PO PRN ×2 (09:38)
[2019-03-24] MEDS ORDERED: SIMETHICONE 80 MG CHEWABLE PO PRN (09:38)
[2019-03-24] MEDS ORDERED: ETANERCEPT 25 MG SQ SCH (09:38)
[2019-03-24] MEDS ORDERED: IBUPROFEN 600 MG TAB PO PRN (09:38)
[2019-03-24] MEDS ORDERED: METOCLOPRAMIDE 5 MG/ML 2 ML VIAL IVP PRN (09:38)
[2019-03-24] MEDS ORDERED: ONDANSETRON 4 MG/2 ML VIAL IVP PRN (09:38)
[2019-03-24] MEDS: KETOROLAC 30 MG/ML 1 ML VIAL IVP PRN ×2 (11:26→17:27)
[2019-03-24] MEDS: amLODIPine 5 MG TAB PO SCH (16:08)
[2019-03-24] MEDS: FOLIC ACID 1 MG TAB PO SCH (16:09)
[2019-03-24] MEDS: SENNOSIDES-DOCUSATE SODIUM 1 EACH TAB PO SCH ×2 (16:09→23:07)
[2019-03-25] MEDS: KETOROLAC 30 MG/ML 1 ML VIAL IVP PRN (04:00)
[2019-03-25 07:10] LABS: Basophils % (A) 0 %; Eosinophils % (A) 0 %; HCT 42.9 % (34.0-46.0); HGB 13.7 gm/dL (11.4-16.0); Lymphocytes # (A) 1.8 k/uL (1.0-4.8); Lymphocytes % (A) 13 %; MCH 30.7 pg (25.0-35.0); MCHC 31.9 g/dL (31.0-37.0); MCV 96.1 fL (80.0-100.0); Mean Platelet Volume 7.1; Monocytes # (A) 0.6 k/uL (0-1.0); Monocytes % (A) 4 %; Neutrophils # (A) 11.3 k/uL (1.3-7.7); Neutrophils % (A) 81 %; Platelet Count 286 k/uL (150-450); RBC 4.46 m/uL (3.80-5.40); RDW 13.7 % (11.5-15.5); WBC 13.9 k/uL (3.8-10.6)
[2019-03-25] MEDS: SENNOSIDES-DOCUSATE SODIUM 1 EACH TAB PO SCH (07:50)
[2019-03-25] MEDS: amLODIPine 5 MG TAB PO SCH (07:50)
[2019-03-25] MEDS: FOLIC ACID 1 MG TAB PO SCH (07:52)
--- NOTE | 2019-03-25 08:01 | P.DS ---
Providers Date of admission: 03/25/19 04:24 Expected date of discharge: 03/25/19 Attending physician: Kerline Hensley Primary care physician: Shayne Cisneros - Discharge Diagnosis(es) (1) Pelvic pain Current Visit: Yes Status: Resolved (2) Ovarian cyst, left Current Visit: Yes Status: Resolved Hospital Course: Pt presented for [facility] BSO using da mayco. She underwent this procedure without complication. HEr postop course was uneventful. She is ambulating and voiding without difficulty. Tolerating a regular diet and passing flatus. Her pain is well controlled and incisions clean/dry/intact. She will be discharged home POD #1 in stable condition to follow up with me in 2 weeks. Plan - Discharge Summary Discharge Rx Participant: Yes New Discharge Prescriptions: New Acetaminophen-Codeine 300-30mg [Tylenol w/codeine #3] 2 each PO Q6HR PRN #20 tab PRN Reason: Severe Pain No Action amLODIPine BESYLATE [Amlodipine Besylate] 5 mg PO DAILY Pantoprazole [Protonix] 40 mg PO Q48H Etanercept [Enbrel] 25 mg SQ Q7D ALPRAZolam [Xanax] 0.5 mg PO DAILY PRN PRN Reason: Anxiety Folic Acid 1 mg PO DAILY Discharge Medication List Etanercept [Enbrel] 25 mg SQ Q7D 12/13/15 [History] Pantoprazole [Protonix] 40 mg PO Q48H 12/13/15 [History] amLODIPine BESYLATE [Amlodipine Besylate] 5 mg PO DAILY 12/13/15 [History] ALPRAZolam [Xanax] 0.5 mg PO DAILY PRN 05/05/18 [History] Folic Acid 1 mg PO DAILY 09/24/18 [History] Acetaminophen-Codeine 300-30mg [Tylenol w/codeine #3] 2 each PO Q6HR PRN #20 tab 03/25/19 [Rx] Follow up Appointment(s)/Referral(s): Kerline Hensley DO [Doctor of Osteopathic Medicine] - 2 Weeks Discharge Disposition: HOME SELF-CARE
[2019-03-25] MEDS ORDERED: amLODIPine 5 MG TAB PO SCH (09:00)
[2019-03-25 10:03] VITALS: BP 129/84; PULSE 69; RESP 20; TEMP 98.3
[2019-03-26] MEDS ORDERED: PANTOPRAZOLE 40 MG TABLET PO SCH (07:30)
== END 2019-03-25 11:00 | disposition home or self-care (01) ==
LOC: OR 05:56 → 4FBP 08:30 → OR 03-25 04:24
PROVIDERS: ADMIT Obstetrics & Gynecology; ATTEND Obstetrics & Gynecology
DX: N83.202 Unspecified ovarian cyst, left side (principal); N70.11 Chronic salpingitis; N81.10 Cystocele, unspecified; N84.0 Polyp of corpus uteri; K21.9 Gastro-esophageal reflux disease without esophagitis; I10 Essential (primary) hypertension; M06.9 Rheumatoid arthritis, unspecified; Z87.19 Personal history of other diseases of the digestive system; Z79.899 Other long term (current) drug therapy; Z88.5 Allergy status to narcotic agent; R74.8 Abnormal levels of other serum enzymes; Z83.3 Family history of diabetes mellitus; Z82.49 Family history of ischemic heart disease and other diseases of the circulatory system
CPT/HCPCS: 58571; S2900; 85025; 86850; 86900; 86901; 88307

== ENCOUNTER 2019-06-05 15:02 | Emergency (ER) | payer MEDICAID ==
[2019-06-05 15:09] VITALS: RESP 16; TEMP 97.8
[2019-06-05] MEDS ORDERED: NITROGLYCERIN SL TABS 0.4 MG TAB SUBLINGUAL STA ×3 (15:16)
[2019-06-05] MEDS ORDERED: ASPIRIN 81 MG PO STA (15:16)
--- NOTE | 2019-06-05 15:36 | ED ---
General Adult HPI - General Chief complaint: Back Pain/Injury Stated complaint: Back pain Time Seen by Provider: 06/05/19 15:16 Source: patient, RN notes reviewed Mode of arrival: ambulatory Limitations: no limitations - History of Present Illness Initial comments: Patient is a pleasant 58-year-old female presenting to the emergency Department with complaints of upper back discomfort. Patient had right-sided sharp chest discomfort 2 days ago. Symptoms lasted a couple hours then resolved. No chest discomfort since that time. Patient woke up yesterday morning with pressure of her right upper back. Symptoms have been mostly steady and are positional. Patient denies dyspnea. No nausea or vomiting. No diaphoresis. No history of similar symptoms previously. No leg pain or leg swelling. Patient did have hysterectomy 2 months ago. - Related Data Home Medications Medication Instructions Recorded Confirmed Etanercept [Enbrel] 25 mg SQ Q7D 12/13/15 03/24/19 Pantoprazole [Protonix] 40 mg PO Q48H 12/13/15 03/24/19 amLODIPine BESYLATE [Amlodipine 5 mg PO DAILY 12/13/15 03/24/19 Besylate] ALPRAZolam [Xanax] 0.5 mg PO DAILY PRN 05/05/18 03/24/19 Folic Acid 1 mg PO DAILY 09/24/18 03/24/19 Previous Rx's Medication Instructions Recorded Acetaminophen-Codeine 300-30mg 2 each PO Q6HR PRN #20 tab 03/25/19 [Tylenol w/codeine #3] Allergies Allergy/AdvReac Type Severity Reaction Status Date / Time hydrocodone [From Vicodin] Allergy Unknown sweating,blood Verified 06/05/19 15:09 pressure,n&v,dizziness oxycodone [From Percocet] Allergy Unknown sweating,bloodpressure Verified 06/05/19 15:09 drops,n/v, dizziness hydromorphone [From Dilaudid] Allergy sweating, Verified 06/05/19 15:09 blood pressure dropped, n/v,dizziness Review of Systems ROS Statement: Those systems with pertinent positive or pertinent negative responses have been documented in the HPI. ROS Other: All systems not noted in ROS Statement are negative. Constitutional: Denies: fever Eyes: Denies: eye pain ENT: Denies: ear pain Respiratory: Reports: as per HPI Cardiovascular: Reports: as per HPI Endocrine: Denies: fatigue Gastrointestinal: Denies: vomiting Genitourinary: Denies: dysuria Musculoskeletal: Reports: as per HPI Skin: Denies: rash Neurological: Denies: weakness Past Medical History Past Medical History: GERD/Reflux, Hypertension, Rheumatoid Arthritis (RA) Additional Past Medical History / Comment(s): DIVERTICULOSIS, elevated liver enzymes recently- monitoring History of Any Multi-Drug Resistant Organisms: None Reported Past Surgical History: Joint Replacement, Orthopedic Surgery Additional Past Surgical History / Comment(s): KNEE SURGERIES LEFT X 9, left knee replaced, D & C Past Anesthesia/Blood Transfusion Reactions: No Reported Reaction, Family History of Problems w/ Anesthesia Additional Past Anesthesia/Blood Transfusion Reaction / Comment(s): daughter passed out after wisdom teeth removed, fine w/anesthesia since Past Psychological History: No Psychological Hx Reported Smoking Status: Never smoker Past Alcohol Use History: Occasional Past Drug Use History: None Reported - Past Family History Mother Family Medical History: Diabetes Mellitus, Hypertension Father Family Medical History: Hypertension, Renal Disease Brother(s) Family Medical History: Diabetes Mellitus Sister(s) Family Medical History: Diabetes Mellitus Daughter(s) Family Medical History: No Reported History Son(s) Family Medical History: No Reported History General Exam Limitations: no limitations General appearance: alert, in no apparent distress Head exam: Present: normocephalic Eye exam: Present: normal appearance Neck exam: Present: normal inspection Respiratory exam: Present: normal lung sounds bilaterally. Absent: chest wall tenderness Cardiovascular Exam: Present: regular rate, normal rhythm Expanded Peripheral pulses: 2+: Radial (R), Radial (L), Posterior Tibialis (R), Posterior Tibialis (L) GI/Abdominal exam: Present: soft. Absent: distended, tenderness Extremities exam: Present: normal inspection. Absent: pedal edema, calf tenderness Back exam: Present: normal inspection. Absent: tenderness Neurological exam: Present: alert Psychiatric exam: Present: normal affect, normal mood Skin exam: Present: normal color Course Vital Signs 06/05/19 15:06 Temperature 97.8 F Pulse Rate 104 H Respiratory 16 Rate Blood Pressure 157/96 O2 Sat by Pulse 95 Oximetry EKG Findings - EKG Comments: EKG Findings:: Normal sinus rhythm 100. OR 158. QRS 74. QT 350. QTC 451. Left axis. Inferior Q waves. No acute ST change. Medical Decision Making - Medical Decision Making Patient reevaluated and resting comfortably in bed. Patient states symptoms have improved. Patient updated on results. Patient requests discharge home. Patient updated on need for close follow-up and probable stress test. - Lab Data Result diagrams: 06/05/19 15:23 06/05/19 15:23 Lab Results 06/05/19 06/05/19 06/05/19 Range/Units 15:23 15:23 15:23 WBC 11.1 H (3.8-10.6) k/uL RBC 5.03 (3.80-5.40) m/uL Hgb 15.5 (11.4-16.0) gm/dL Hct 46.3 H (34.0-46.0) % MCV 91.9 (80.0-100.0) fL MCH 30.9 (25.0-35.0) pg MCHC 33.6 (31.0-37.0) g/dL RDW 12.4 (11.5-15.5) % Plt Count 311 (150-450) k/uL Neutrophils % 62 % Lymphocytes % 30 % Monocytes % 4 % Eosinophils % 1 % Basophils % 0 % Neutrophils # 6.9 (1.3-7.7) k/uL Lymphocytes # 3.4 (1.0-4.8) k/uL Monocytes # 0.5 (0-1.0) k/uL Eosinophils # 0.1 (0-0.7) k/uL Basophils # 0.0 (0-0.2) k/uL PT 9.5 (9.0-12.0) sec INR 0.9 (<1.2) APTT 21.3 L (22.0-30.0) sec D-Dimer 0.81 H (<0.60) mg/L FEU Sodium 142 (137-145) mmol/L Potassium 4.3 (3.5-5.1) mmol/L Chloride 109 H (98-107) mmol/L Carbon Dioxide 24 (22-30) mmol/L Anion Gap 9 mmol/L BUN 11 (7-17) mg/dL Creatinine 0.75 (0.52-1.04) mg/dL Est GFR (CKD-EPI)AfAm >90 (>60 ml/min/1.73 sqM) Est GFR (CKD-EPI)NonAf 89 (>60 ml/min/1.73 sqM) Glucose 133 H (74-99) mg/dL Calcium 10.0 (8.4-10.2) mg/dL Magnesium 2.2 (1.6-2.3) mg/dL Total Bilirubin 1.0 (0.2-1.3) mg/dL AST 33 (14-36) U/L ALT 28 (4-34) U/L Alkaline Phosphatase 91 (38-126) U/L Troponin I (0.000-0.034) ng/mL Total Protein 8.1 (6.3-8.2) g/dL Albumin 4.5 (3.5-5.0) g/dL 06/05/19 Range/Units 15:23 WBC (3.8-10.6) k/uL RBC (3.80-5.40) m/uL Hgb (11.4-16.0) gm/dL Hct (34.0-46.0) % MCV (80.0-100.0) fL MCH (25.0-35.0) pg MCHC (31.0-37.0) g/dL RDW (11.5-15.5) % Plt Count (150-450) k/uL Neutrophils % % Lymphocytes % % Monocytes % % Eosinophils % % Basophils % % Neutrophils # (1.3-7.7) k/uL Lymphocytes # (1.0-4.8) k/uL Monocytes # (0-1.0) k/uL Eosinophils # (0-0.7) k/uL Basophils # (0-0.2) k/uL PT (9.0-12.0) sec INR (<1.2) APTT (22.0-30.0) sec D-Dimer (<0.60) mg/L FEU Sodium (137-145) mmol/L Potassium (3.5-5.1) mmol/L Chloride (98-107) mmol/L Carbon Dioxide (22-30) mmol/L Anion Gap mmol/L BUN (7-17) mg/dL Creatinine (0.52-1.04) mg/dL Est GFR (CKD-EPI)AfAm (>60 ml/min/1.73 sqM) Est GFR (CKD-EPI)NonAf (>60 ml/min/1.73 sqM) Glucose (74-99) mg/dL Calcium (8.4-10.2) mg/dL Magnesium (1.6-2.3) mg/dL Total Bilirubin (0.2-1.3) mg/dL AST (14-36) U/L ALT (4-34) U/L Alkaline Phosphatase (38-126) U/L Troponin I <0.012 (0.000-0.034) ng/mL Total Protein (6.3-8.2) g/dL Albumin (3.5-5.0) g/dL - Radiology Data Radiology results: report reviewed (Computed tomography scan of the chest shows no evidence of pulmonary embolism. Emphysema. Scarring.) Disposition Clinical Impression: Upper back pain Disposition: HOME SELF-CARE Condition: Stable Instructions (If sedation given, give patient instructions): Thoracic Back Strain (ED) Additional Instructions: Please follow-up with primary care physician in the next day or 2 for recheck. Have primary care physician consider stress test. Return for difficulty breathing, increased pain, chest pain, worsening or change in symptoms or other concerns. Is patient prescribed a controlled substance at d/c from ED?: No Referrals: Shayne Cisneros DO [Primary Care Provider] - 1-2 days Time of Disposition: 16:48
[2019-06-05 15:41] LABS: Basophils % (A) 0 %; Eosinophils # (A) 0.1 k/uL (0-0.7); Eosinophils % (A) 1 %; HCT 46.3 % (34.0-46.0); HGB 15.5 gm/dL (11.4-16.0); Lymphocytes # (A) 3.4 k/uL (1.0-4.8); Lymphocytes % (A) 30 %; MCH 30.9 pg (25.0-35.0); MCHC 33.6 g/dL (31.0-37.0); MCV 91.9 fL (80.0-100.0); Mean Platelet Volume 7.4; Monocytes # (A) 0.5 k/uL (0-1.0); Monocytes % (A) 4 %; Neutrophils # (A) 6.9 k/uL (1.3-7.7); Neutrophils % (A) 62 %; Platelet Count 311 k/uL (150-450); RBC 5.03 m/uL (3.80-5.40); RDW 12.4 % (11.5-15.5); WBC 11.1 k/uL (3.8-10.6)
[2019-06-05 15:56] LABS: ALT 28 U/L (4-34); AST 33 U/L (14-36); African American GFR (CKD) >90 (>60 ml/min/1.73 sqM); Albumin 4.5 g/dL (3.5-5.0); Alkaline Phosphatase 91 U/L (38-126); Anion Gap 9 mmol/L; Blood Urea Nitrogen 11 mg/dL (7-17); Carbon Dioxide 24 mmol/L (22-30); Chloride 109 mmol/L (98-107); Glucose 133 mg/dL (74-99); Magnesium 2.2 mg/dL (1.6-2.3); Non-African American GFR(CKD) 89 (>60 ml/min/1.73 sqM); Potassium 4.3 mmol/L (3.5-5.1); Sodium 142 mmol/L (137-145); Total Protein 8.1 g/dL (6.3-8.2)
[2019-06-05 16:01] LABS: INR 0.9 (<1.2); Prothrombin Time 9.5 sec (9.0-12.0)
[2019-06-05 16:08] LABS: Partial Thromboplastin Time 21.3 sec (22.0-30.0)
[2019-06-05 16:16] LABS: D-Dimer 0.81 mg/L FEU (<0.60)
--- NOTE | 2019-06-05 16:33 | CT ---
EXAMINATION TYPE: CT angio chest DATE OF EXAM: 06/05/2019 COMPARISON: None HISTORY: Upper right side chest pain CT DLP: 353.3 mGycm Automated exposure control for dose reduction was used. CONTRAST: Performed with IV Contrast, patient injected with 80 mL of Isovue 370. There are 3-D post processed images. FINDINGS: Mediastinum is normal. There is no adenopathy. Thoracic aorta is intact. There is no aneurysm or diss ection. There are no hilar masses. There is normal contrast opacification of the pulmonary arteries. There are no filling defects. There is mild pulmonary emphysema. There is no evidence of a pulmonary mass. There is no pleural effu dylon. There is no pneumothorax. Upper abdominal soft tissues are intact. IMPRESSION: No evidence of pulmonary embolism. Emphysema. Minimal pleural and pulmonary scarring in the posterior lung yi.
[2019-06-05] MEDS ORDERED: KETOROLAC 30 MG/ML 1 ML VIAL IVP STA (16:47)
[2019-06-05] MEDS ORDERED: CYCLOBENZAPRINE 10MG STARTER 3 TAB BTL PO STA (16:47)
[2019-06-05 17:08] VITALS: BP 138/73; PULSE 76
== END 2019-06-05 17:00 | disposition home or self-care (01) ==
LOC: EC 15:02
DX: M54.9 Dorsalgia, unspecified (principal); K21.9 Gastro-esophageal reflux disease without esophagitis; I10 Essential (primary) hypertension; Z79.899 Other long term (current) drug therapy; Z88.5 Allergy status to narcotic agent; Z88.6 Allergy status to analgesic agent
CPT/HCPCS: 36415; 93005; 85379; 80053; 83735; 84484; 85025; 85610; 85730; 71275; 99284; Q9967

== ENCOUNTER 2020-07-02 08:24 | Emergency (ER) | payer MEDICAID ==
[2020-07-02 08:30] VITALS: BP 150/87; PULSE 107; RESP 18; TEMP 98.5
--- NOTE | 2020-07-02 08:52 | ED ---
General Adult HPI - General Chief complaint: Skin/Abscess/Foreign Body Stated complaint: facial abscess Time Seen by Provider: 07/02/20 08:37 Source: patient, RN notes reviewed Mode of arrival: ambulatory Limitations: no limitations - History of Present Illness Initial comments: Patient 59-year-old female presenting to the emergency room today with a chief complaint of a abscess to the right side of the chin. Patient does admit that it started 2 days ago she went to urgent care 2 days ago was given a prescription for Augmentin which she's been taking. She states seems it is getting worse. She states there has been a little bit of drainage. She states is very firm and tender. Patient denies any bites or any other symptoms at this time. Patient denies any recent fever, chills, shortness of breath, chest pain, back pain, abdominal pain, nausea or vomiting, numbness or tingling, headaches or visual changes, or any other complaints. - Related Data Home Medications Medication Instructions Recorded Confirmed Etanercept [Enbrel] 25 mg SQ Q7D 12/13/15 03/24/19 Pantoprazole [Protonix] 40 mg PO Q48H 12/13/15 03/24/19 amLODIPine BESYLATE [Amlodipine 5 mg PO DAILY 12/13/15 03/24/19 Besylate] ALPRAZolam [Xanax] 0.5 mg PO DAILY PRN 05/05/18 03/24/19 Folic Acid 1 mg PO DAILY 09/24/18 03/24/19 Previous Rx's Medication Instructions Recorded Acetaminophen-Codeine 300-30mg 2 each PO Q6HR PRN #20 tab 03/25/19 [Tylenol w/codeine #3] Sulfamethox-Tmp 800-160Mg [Bactrim 1 tab PO Q12HR #28 tab 07/02/20 DS 800-160 mg] Allergies Allergy/AdvReac Type Severity Reaction Status Date / Time hydrocodone [From Vicodin] Allergy Unknown sweating,blood Verified 07/02/20 08:30 pressure,n&v,dizziness oxycodone [From Percocet] Allergy Unknown sweating,bloodpressure Verified 07/02/20 08:30 drops,n/v, dizziness hydromorphone [From Dilaudid] Allergy sweating, Verified 07/02/20 08:30 blood pressure dropped, n/v,dizziness Review of Systems ROS Statement: Those systems with pertinent positive or pertinent negative responses have been documented in the HPI. ROS Other: All systems not noted in ROS Statement are negative. Past Medical History Past Medical History: GERD/Reflux, Hypertension, Rheumatoid Arthritis (RA) Additional Past Medical History / Comment(s): DIVERTICULOSIS, elevated liver enzymes recently- monitoring History of Any Multi-Drug Resistant Organisms: None Reported Past Surgical History: Joint Replacement, Orthopedic Surgery Additional Past Surgical History / Comment(s): KNEE SURGERIES LEFT X 9, left knee replaced, D & C Past Anesthesia/Blood Transfusion Reactions: No Reported Reaction, Family History of Problems w/ Anesthesia Additional Past Anesthesia/Blood Transfusion Reaction / Comment(s): daughter passed out after wisdom teeth removed, fine w/anesthesia since Past Psychological History: No Psychological Hx Reported Smoking Status: Former smoker Past Alcohol Use History: Occasional Past Drug Use History: None Reported - Past Family History Mother Family Medical History: Diabetes Mellitus, Hypertension Father Family Medical History: Hypertension, Renal Disease Brother(s) Family Medical History: Diabetes Mellitus Sister(s) Family Medical History: Diabetes Mellitus Daughter(s) Family Medical History: No Reported History Son(s) Family Medical History: No Reported History General Exam - General Exam Comments Initial Comments: General: The patient is awake and alert, in no distress, and does not appear acutely ill. Eye: extra-ocular movements are intact. There is normal conjunctiva bilaterally. No signs of icterus. Ears, nose, mouth and throat: There are moist mucous membranes and no oral lesions. Neck: The neck is supple, there is no tenderness or JVD. Cardiovascular: There is a regular rate and rhythm. No murmur, rub or gallop is appreciated. Respiratory: respirations are non-labored, breath sounds are equal. Musculoskeletal: Normal ROM, no tenderness. Neurological: A&O x 3. CN II-XII intact, There are no obvious motor or sensory deficits. Coordination appears grossly intact. Speech is normal. Skin: Patient does have abscess to the right side of the chin. It is firm on palpation. There is a white head centrally. Measures approximately 3-4 cm across Psychiatric: Cooperative, appropriate mood & affect, normal judgment. Limitations: no limitations Course Vital Signs 07/02/20 08:27 Temperature 98.5 F Pulse Rate 107 H Respiratory 18 Rate Blood Pressure 150/87 O2 Sat by Pulse 100 Oximetry Medical Decision Making - Medical Decision Making Patient will have antibiotics changed to Bactrim from Augmentin. She is advised close follow-up over the next 2 days returning if symptoms increase worsen. She states understanding and is in agreement. Disposition Clinical Impression: Facial abscess Disposition: HOME SELF-CARE Condition: Good Instructions (If sedation given, give patient instructions): Abscess (ED) Additional Instructions: Please use medication as discussed. Please follow-up with family doctor in the next 2 days of symptoms have not improved. Please return to emergency room if the symptoms increase or worsen or for any other concerns. Prescriptions: Sulfamethox-Tmp 800-160Mg [Bactrim DS 800-160 mg] 1 tab PO Q12HR #28 tab Is patient prescribed a controlled substance at d/c from ED?: No Referrals: Shayne Cisneros DO [Primary Care Provider] - 1-2 days Time of Disposition: 08:51
== END 2020-07-02 09:07 | disposition home or self-care (01) ==
LOC: EC 08:24
DX: L02.01 Cutaneous abscess of face (principal); K21.9 Gastro-esophageal reflux disease without esophagitis; I10 Essential (primary) hypertension; M06.9 Rheumatoid arthritis, unspecified; Z96.652 Presence of left artificial knee joint; Z79.899 Other long term (current) drug therapy; Z87.891 Personal history of nicotine dependence; Z88.5 Allergy status to narcotic agent
CPT/HCPCS: 99283

== ENCOUNTER 2020-07-02 19:54 | Inpatient (IN) | payer MEDICAID ==
[2020-07-02] MEDS ORDERED: CLINDAMYCIN 600 MG in DEXTROSE 5% IN WATER 50 ML IVPB STA ×2 (20:06)
[2020-07-02] MEDS ORDERED: SODIUM CHLORIDE 0.9% 1,000 ML IV ONE ×2 (20:06→21:23)
[2020-07-02] MEDS ORDERED: KETOROLAC 15 MG/ML 1 ML VIAL IVP STA (20:09)
[2020-07-02 20:50] LABS: Basophils # (A) 0.1 k/uL (0-0.2); Basophils % (A) 1 %; Eosinophils # (A) 0.2 k/uL (0-0.7); Eosinophils % (A) 1 %; HCT 44.1 % (34.0-46.0); HGB 14.8 gm/dL (11.4-16.0); Lymphocytes # (A) 2.4 k/uL (1.0-4.8); Lymphocytes % (A) 14 %; MCH 30.2 pg (25.0-35.0); MCHC 33.5 g/dL (31.0-37.0); Mean Platelet Volume 7.5; Monocytes % (A) 6 %; Neutrophils # (A) 13.2 k/uL (1.3-7.7); Neutrophils % (A) 77 %; Platelet Count 300 k/uL (150-450); RDW 12.3 % (11.5-15.5); WBC 17.1 k/uL (3.8-10.6)
[2020-07-02 21:03] LABS: ALT 29 U/L (4-34); AST 25 U/L (14-36); African American GFR (CKD) >90 (>60 ml/min/1.73 sqM); Albumin 4.1 g/dL (3.5-5.0); Alkaline Phosphatase 108 U/L (38-126); Anion Gap 12 mmol/L; Blood Urea Nitrogen 16 mg/dL (7-17); Calcium 9.4 mg/dL (8.4-10.2); Carbon Dioxide 23 mmol/L (22-30); Chloride 106 mmol/L (98-107); Glucose 138 mg/dL (74-99); Non-African American GFR(CKD) 88 (>60 ml/min/1.73 sqM); Potassium 3.8 mmol/L (3.5-5.1); Sodium 141 mmol/L (137-145); Total Bilirubin 0.5 mg/dL (0.2-1.3); Total Protein 7.6 g/dL (6.3-8.2)
[2020-07-02] MEDS ORDERED: SODIUM CHLORIDE 0.9% 500 ML 500 ML IV ONE (21:23)
[2020-07-02] MEDS ORDERED: PIPERACILLIN-TAZOBACTAM 3.375 GM in SODIUM CHLORIDE 0.9% 100 ML IVPB STA (21:23)
[2020-07-02] MEDS ORDERED: ACETAMINOPHEN TAB 325 MG TAB PO STA (21:25)
--- NOTE | 2020-07-02 21:25 | ED ---
Recheck HPI - General Chief Complaint: Recheck/Abnormal Lab/Rx Stated Complaint: Oral pain,revisit Time Seen by Provider: 07/02/20 20:00 Source: patient Mode of arrival: ambulatory Limitations: no limitations - History of Present Illness Initial Comments: 59yo female presenting for right sided facial infection. pt states that she had a lump (felt like a deep pimple to her) that she thinks has gotten infected, and worsening for the past 3 days. pt states she presented earlier today and was prescribed oral batrim but states that the swelling has now stretched down the right side of her neck. Denies fevers, admits to chills. Denies nausea, vomiting, dental pain, swelling below tongue, difficulty tolerating oral intake or swallowing. Patient HR elevated on arrival.> She is no distress but has obvious right sided facial redness and swelling. Pt does have hx of RA and is on an immune modulator - Related Data Home Medications Medication Instructions Recorded Confirmed Pantoprazole [Protonix] 40 mg PO Q48H 12/13/15 07/02/20 amLODIPine BESYLATE [Amlodipine 5 mg PO DAILY 12/13/15 07/02/20 Besylate] Amoxicillin 875 mg PO Q12HR 07/02/20 07/02/20 Cholecalciferol [Vitamin D3 (25 25 mcg PO DAILY 07/02/20 07/02/20 Mcg = 1000 Iu)] Etanercept [Enbrel Sureclick] 50 mg SQ FR 07/02/20 07/02/20 Multivitamins, Thera [Multivitamin 1 tab PO DAILY 07/02/20 07/02/20 (formulary)] predniSONE 10 mg PO DAILY PRN 07/02/20 07/02/20 Previous Rx's Medication Instructions Recorded Sulfamethox-Tmp 800-160Mg [Bactrim 1 tab PO Q12HR #28 tab 07/02/20 DS 800-160 mg] Allergies Allergy/AdvReac Type Severity Reaction Status Date / Time hydrocodone [From Vicodin] Allergy Unknown sweating,blood Verified 07/02/20 21:42 pressure,n&v,dizziness oxycodone [From Percocet] Allergy Unknown sweating,bloodpressure Verified 07/02/20 21:42 drops,n/v, dizziness hydromorphone [From Dilaudid] Allergy sweating, Verified 07/02/20 21:42 blood pressure dropped, n/v,dizziness Review of Systems ROS Statement: Those systems with pertinent positive or pertinent negative responses have been documented in the HPI. ROS Other: All systems not noted in ROS Statement are negative. Past Medical History Past Medical History: GERD/Reflux, Hypertension, Rheumatoid Arthritis (RA) Additional Past Medical History / Comment(s): DIVERTICULOSIS, elevated liver enzymes recently-dr. monitoring History of Any Multi-Drug Resistant Organisms: None Reported Past Surgical History: Joint Replacement, Orthopedic Surgery Additional Past Surgical History / Comment(s): KNEE SURGERIES LEFT X 9, left knee replaced, D & C Past Anesthesia/Blood Transfusion Reactions: No Reported Reaction, Family History of Problems w/ Anesthesia Additional Past Anesthesia/Blood Transfusion Reaction / Comment(s): daughter passed out after wisdom teeth removed, fine w/anesthesia since Past Psychological History: No Psychological Hx Reported Smoking Status: Former smoker Past Alcohol Use History: Occasional Past Drug Use History: None Reported - Past Family History Mother Family Medical History: Diabetes Mellitus, Hypertension Father Family Medical History: Hypertension, Renal Disease Brother(s) Family Medical History: Diabetes Mellitus Sister(s) Family Medical History: Diabetes Mellitus Daughter(s) Family Medical History: No Reported History Son(s) Family Medical History: No Reported History General Exam - General Exam Comments Initial Comments: General: The patient is awake and alert, in no distress Eye: +3 mm pupils are equal, round and reactive to light, extra-ocular movements are intact. No nystagmus. There is normal conjunctiva bilaterally. No signs of icterus. Ears, nose, mouth and throat: There are moist mucous membranes and no oral lesions. No dental pain to palpation/percussion, no swelling below tongue. Neck: The neck is supple, there is no tenderness or JVD. Cardiovascular: There is a regular rate and rhythm. No murmur, rub or gallop is appreciated. Respiratory: Lungs are clear to auscultation, respirations are non-labored, breath sounds are equal. No wheezes, stridor, rales, or rhonchi Musculoskeletal: Normal ROM, no tenderness. Strength 5/5. Sensation intact. Radial pulses equal bilaterally 2+. Neurological: A&O x 3. CN II-XII intact grossly, There are no obvious motor or sensory deficits. Coordination appears grossly intact. Speech is normal. Skin: Skin is warm and dry and no rashes. Right chin swelling, redness, with raised lesion ~1cm, surrounding induration, soft tissue swelling extends dwon the right side of neck. Psychiatric: Cooperative, appropriate mood & affect, normal judgment. Limitations: no limitations Course Vital Signs 07/02/20 07/02/20 07/02/20 19:55 22:23 22:51 Temperature 98.7 F 98.6 F 98.6 F Pulse Rate 122 H 98 98 Respiratory 18 16 16 Rate Blood Pressure 132/75 167/101 167/101 O2 Sat by Pulse 95 98 98 Oximetry Medical Decision Making - Medical Decision Making 59-year-old female who is immune compromised secondary to her rheumatoid arthritis treatment presenting to the ER for worsening facial swelling patient is obvious facial cellulitis with small raised area CT shows a facial cellulitis no collection of fluid consistent with abscess. This does not appear oral in nature no dental pain obvious source of entry for the facial cellulitis. Patient has leukocytosis, mild lactic acidosis. Patient's heart rate elevated. Patient was given clindamycin, when labs resulted broad spectrum was initiated, fluids increased. Pt agreeable to admission> Dr Villafana is agreeable to care plan. - Lab Data Result diagrams: 07/02/20 20:40 07/02/20 20:40 Lab Results 07/02/20 07/02/20 07/02/20 Range/Units 20:40 20:40 20:40 WBC 17.1 H (3.8-10.6) k/uL RBC 4.90 (3.80-5.40) m/uL Hgb 14.8 (11.4-16.0) gm/dL Hct 44.1 (34.0-46.0) % MCV 90.0 (80.0-100.0) fL MCH 30.2 (25.0-35.0) pg MCHC 33.5 (31.0-37.0) g/dL RDW 12.3 (11.5-15.5) % Plt Count 300 (150-450) k/uL MPV 7.5 Neutrophils % 77 % Lymphocytes % 14 % Monocytes % 6 % Eosinophils % 1 % Basophils % 1 % Neutrophils # 13.2 H (1.3-7.7) k/uL Lymphocytes # 2.4 (1.0-4.8) k/uL Monocytes # 1.0 (0-1.0) k/uL Eosinophils # 0.2 (0-0.7) k/uL Basophils # 0.1 (0-0.2) k/uL Sodium 141 (137-145) mmol/L Potassium 3.8 (3.5-5.1) mmol/L Chloride 106 (98-107) mmol/L Carbon Dioxide 23 (22-30) mmol/L Anion Gap 12 mmol/L BUN 16 (7-17) mg/dL Creatinine 0.75 (0.52-1.04) mg/dL Est GFR (CKD-EPI)AfAm >90 (>60 ml/min/1.73 sqM) Est GFR (CKD-EPI)NonAf 88 (>60 ml/min/1.73 sqM) Glucose 138 H (74-99) mg/dL Plasma Lactic Acid [place] 2.8 H* (0.7-2.0) mmol/L Calcium 9.4 (8.4-10.2) mg/dL Total Bilirubin 0.5 (0.2-1.3) mg/dL AST 25 (14-36) U/L ALT 29 (4-34) U/L Alkaline Phosphatase 108 (38-126) U/L Total Protein 7.6 (6.3-8.2) g/dL Albumin 4.1 (3.5-5.0) g/dL Disposition Clinical Impression: Facial cellulitis, Sepsis Disposition: ADMITTED IP TO THIS [facility] Condition: Stable Is patient prescribed a controlled substance at d/c from ED?: No Time of Disposition: 21:54 Decision to Admit Reason: Admit from EC Decision Date: 07/02/20 Decision Time: 21:54
--- NOTE | 2020-07-02 21:33 | CT ---
EXAMINATION TYPE: CT soft tissue neck w con DATE OF EXAM: 07/02/2020 COMPARISON: None HISTORY: Right anterior mandibular pain, redness and swelling. CT DLP: 276.2 mGycm Automated exposure control for dose reduction was used. CONTRAST: Performed with IV Contrast, patient injected with 100ml mL of Isovue 300. Images were obtained from the aortic arch to the top of the orbits with IV contrast. There is normal branching pattern of the great vessels. There is arterial flow in both subclavian art eries. There is arterial flow in the carotid and vertebral arteries. There is contrast opacification of the jugular veins. The parotid glands are symmetric. Submandibular salivary glands appear normal. The epiglottis is normal. Prevertebral soft tissues appear normal. Subglottic trachea appears normal. At C5-6 there is disc space narrowing and spur formation. Cervical vertebra have normal alignment. T hyroid gland appears normal. The tonsils and adenoids appear normal. There is subcutaneous edema anterior to the right hemimandible. There is mild subcutaneous edema at t he anterior neck on the right side. IMPRESSION: Soft tissue swelling and subcutaneous edema anterior to the mandible and right anterior neck consiste nt with cellulitis. No definite drainable fluid collection.
[2020-07-02] MEDS ORDERED: NALOXONE 0.4 MG/ML 1 ML VIAL IV PRN (22:15)
[2020-07-02] MEDS ORDERED: KETOROLAC 15 MG/ML 1 ML VIAL IVP PRN (22:48)
[2020-07-02] MEDS ORDERED: ACETAMINOPHEN TAB 325 MG TAB PO PRN (22:48)
[2020-07-03] MEDS: SODIUM CHLORIDE 0.9% 1,000 ML IV SCH ×4 (01:33→20:09)
[2020-07-03] MEDS ORDERED: VANCOMYCIN IV PER PHARMACY 1 EACH MISC MISCELLANE PRN (08:29)
[2020-07-03] MEDS ORDERED: AMPICILLIN-SULBACTAM 3 GM in SODIUM CHLORIDE 0.9% 100 ML IVPB SCH (08:45)
[2020-07-03] MEDS ORDERED: traMADol 50 MG TAB PO PRN (09:30)
[2020-07-03] MEDS: MULTIVITAMINS, THERA 1 EACH TAB PO SCH (09:53)
[2020-07-03] MEDS: amLODIPine 5 MG TAB PO SCH (09:53)
[2020-07-03] MEDS: VANCOMYCIN 1,500 MG in SODIUM CHLORIDE 0.9% 250 ML IVPB SCH ×2 (09:54→16:52)
--- NOTE | 2020-07-03 10:01 | P.HPIM ---
History of Present Illness H&P Date: 07/03/20 HISTORY OF PRESENT ILLNESS This is a 59-year-old female patient of Dr. Cisneros with past medical history significant for hypertension and hypertensive cardiovascular disease with left ventricular hypertrophy, osteoarthritis, gastroesophageal reflux disease, diverticulosis, rheumatoid arthritis diagnosed in 2005 on Enbrel and followed by Dr. Goldman. Patient states on Thursday on her right chin area she had a red area that was approximately size of an eraser. By Thursday it was worse and she went to [facility] and was placed on amoxicillin but was not getting any better. She then came into [facility] emergency center on July 02 and was placed on Bactrim. Patient received turned that evening as she was continuing to worsen with increased redness swelling and firmness to the chin into the jaw and neck region. Patient has a prescription for prednisone at home at all times in case she develops an exacerbation and took prednisone 20 mg on Thursday. Patient was found to be afebrile, heart rate initially 122, blood pressure 132/75, pulse ox 95% on room air. WBC 17.1, hemoglobin 14.8 and a platelet count 300. Blood sugar was 138. Lactic acid initially 2.8 and repeat at 0.9. CAT scan of the neck soft tissue reveals soft tissue swelling without abscess. Patient is status post 2-1/2 L of IV fluids. She was initially started on Zosyn and clindamycin for one dose each and admitted to the observation unit. A consult was placed with ENT and we've added a consult for Dr. Lewis and started the patient on Unasyn and vancomycin. REVIEW OF SYSTEMS Constitutional: No fever, no chills, no night sweats. No weight change. No weakness, fatigue or lethargy. No daytime sleepiness. EENT: No headache. No blurred vision or double vision, no loss of vision. No loss of Hearing, no ringing in the ears, no dizziness. No nasal drainage or congestion. No epistaxis. No sore throat. Reports facial pain. Lungs: No shortness of breath, cough, no sputum production. No wheezing. Cardiovascular: No chest pain, no lower extremity edema. No palpitations. No paroxysmal nocturnal dyspnea. No orthopnea. No lightheadedness or dizziness. No syncopal episodes. Abdominal: No abdominal pain. No nausea, vomiting. No diarrhea. No constipation. No bloody or tarry stools.. No loss of appetite. Genitourinary: No dysuria, increased frequency, urgency. No urinary retention. Musculoskeletal: No myalgias. No muscle weakness, no gait dysfunction, no frequent falls. No back pain. No neck pain. Integumentary: Large area of redness and inflammation with swelling to the right jaw and chin. No rash or pruritus. No unusual bruising. No change in hair or nails. Neurologic: No aphasia. No facial droop. No change in mentation. No head injury. No headache. No paralysis. No paresthesia. Psychiatric: No depression. No anxiety. No mood swings. Endocrine: No abnormal blood sugars. No weight change. No excessive sweating or thirst. No cold intolerance. SOCIAL HISTORY Patient was a smoker of one pack per day for 30 years and quit in July 2011. She drinks alcohol rarely. No illicit drug use or marijuana use. She works for [employer]. She is and lives at home with her . She does not have CPAP, nebulizer, oxygen. FAMILY HISTORY Mother is alive at age 78 with history of diabetes and hypertension. Father d at age 77 from renal failure with history of hypertension. Patient has 1 sister and 1 brother and both have diabetes. Patient has 1 daughter and 1 son with no major medical problems. PHYSICAL EXAMINATION Gen: This is a 59-year-old female. She is resting in bed and appears to be comfortable. No respiratory distress is noted. HEENT: Head is atraumatic, normocephalic. Pupils equal, round. Sclerae is anicteric. Patient has erythema and edema to the right lower lip chin and jaw with upper neck involvement. Swelling includes the right lower lip with no open wounds noted. No drainage. NECK: Supple. No JVD. No lymphadenopathy. No thyromegaly. No stridor noted LUNGS: Clear to auscultation. No wheezes or rhonchi. No intercostal retractions. HEART: Regular rate and rhythm. No murmur. ABDOMEN: Soft. Bowel sounds are present. No masses. No tenderness. EXTREMITIES: No pedal edema. No calf tenderness. NEUROLOGICAL: Patient is awake, alert and oriented x3. Cranial nerves 2 through 12 are grossly intact. ASSESSMENT AND PLAN 1. Sepsis secondary to facial cellulitis in an immunocompromised host. Enbrel and prednisone on hold. Patient will be started on Unasyn and vancomycin, consult with infectious disease and ENT. Tramadol 50 mg 4 times daily as needed for pain and continue Toradol changed to scheduled 50 mg IV push every 8 hours. Decrease IV fluids to 75 mL per hour. 2. Hypertension, hypertensive cardiovascular disease. Continue Norvasc 5 mg daily. 3. Rheumatoid arthritis under the care of Dr. Goldman. Enbrel and prednisone on hold. 4. Gastroesophageal reflux disease. Continue Protonix 40 mg daily. 5. Generalized osteoarthritis, stable. 6. DVT prophylaxis. Heparin subcu. Patient will be admitted to the hospital for a minimum of 2 night stay. DISCHARGE PLAN Home. Impression and plan of care have been directed as dictated by the signing physician. Renita Ornelas nurse practitioner acting as scribe for signing physician. Past Medical History Past Medical History: GERD/Reflux, Hypertension, Rheumatoid Arthritis (RA) Additional Past Medical History / Comment(s): DIVERTICULOSIS, elevated liver enzymes recently-drAntonio monitoring History of Any Multi-Drug Resistant Organisms: None Reported Past Surgical History: Joint Replacement, Orthopedic Surgery Additional Past Surgical History / Comment(s): KNEE SURGERIES LEFT X 9, left knee replaced, D & C Past Anesthesia/Blood Transfusion Reactions: No Reported Reaction, Family History of Problems w/ Anesthesia Additional Past Anesthesia/Blood Transfusion Reaction / Comment(s): daughter passed out after wisdom teeth removed, fine w/anesthesia since Past Psychological History: No Psychological Hx Reported Smoking Status: Former smoker Past Alcohol Use History: Occasional Additional Past Alcohol Use History / Comment(s): smoked 30 years 1ppd, quit 2011 Past Drug Use History: None Reported - Past Family History Mother Family Medical History: Diabetes Mellitus, Hypertension Father Family Medical History: Hypertension, Renal Disease Brother(s) Family Medical History: Diabetes Mellitus Sister(s) Family Medical History: Diabetes Mellitus Daughter(s) Family Medical History: No Reported History Son(s) Family Medical History: No Reported History Medications and Allergies Home Medications Medication Instructions Recorded Confirmed Type Pantoprazole [Protonix] 40 mg PO Q48H 12/13/15 07/02/20 History amLODIPine BESYLATE [Amlodipine 5 mg PO DAILY 12/13/15 07/02/20 History Besylate] Amoxicillin 875 mg PO Q12HR 07/02/20 07/02/20 History Cholecalciferol [Vitamin D3 (25 25 mcg PO DAILY 07/02/20 07/02/20 History Mcg = 1000 Iu)] Etanercept [Enbrel Sureclick] 50 mg SQ FR 07/02/20 07/02/20 History Multivitamins, Thera [Multivitamin 1 tab PO DAILY 07/02/20 07/02/20 History (formulary)] Sulfamethox-Tmp 800-160Mg [Bactrim 1 tab PO Q12HR #28 tab 07/02/20 07/02/20 Rx DS 800-160 mg] predniSONE 10 mg PO DAILY PRN 07/02/20 07/02/20 History Allergies Allergy/AdvReac Type Severity Reaction Status Date / Time hydrocodone [From Vicodin] Allergy Unknown sweating,blood Verified 07/02/20 21:42 pressure,n&v,dizziness oxycodone [From Percocet] Allergy Unknown sweating,bloodpressure Verified 07/02/20 21:42 drops,n/v, dizziness hydromorphone [From Dilaudid] Allergy sweating, Verified 07/02/20 21:42 blood pressure dropped, n/v,dizziness Physical Exam Vitals: Vital Signs Temp Pulse Pulse Resp BP BP Pulse Ox 07/03/20 02:00 97.8 F 93 16 157/84 95 07/03/20 00:31 97.8 F 93 16 157/84 95 07/02/20 22:51 98.6 F 98 16 167/101 98 07/02/20 22:23 98.6 F 98 16 167/101 98 07/02/20 19:55 98.7 F 122 H 18 132/75 95 Intake and Output 07/02/20 07/03/20 07/03/20 22:59 06:59 14:59 Intake Total 910 Balance 910 Intake: Intake, IV Titration 910 Amount Sodium Chloride 0.9% 1, 910 000 ml @ 130 mls/hr IV . Q7H42M [facility] Rx#:[id number] Other: # Voids 3 Weight 81.647 kg 81.647 kg Results CBC & Chem 7: 07/02/20 20:40 07/02/20 20:40 Labs: Abnormal Lab Results - Last 24 Hours (Table) 07/02/20 07/02/20 07/02/20 Range/Units 20:40 20:40 20:40 WBC 17.1 H (3.8-10.6) k/uL Neutrophils # 13.2 H (1.3-7.7) k/uL Glucose 138 H (74-99) mg/dL Plasma Lactic Acid [place] 2.8 H* (0.7-2.0) mmol/L Thrombosis Risk Factor Assmnt - Choose All That Apply Any of the Below Risk Factors Present?: Yes Each Factor Represents 1 point: Age 41-60 years Other Risk Factors: No Other congenital or acquired thrombophilia - If yes, enter type in comment: No Thrombosis Risk Factor Assessment Total Risk Factor Score: 1 Thrombosis Risk Factor Assessment Level: Low Risk
[2020-07-03] MEDS: KETOROLAC 15 MG/ML 1 ML VIAL IVP SCH ×2 (11:01→16:52)
[2020-07-03] MEDS: PANTOPRAZOLE 40 MG TABLET PO SCH (11:05)
--- NOTE | 2020-07-03 14:33 | P.CONS ---
History of Present Illness - Reason for Consult Consult date: 07/03/20 cellulitis - History of Present Illness HISTORY OF PRESENT ILLNESS This is a 59-year-old female patient with past medical history significant for hypertension and hypertensive cardiovascular disease with left ventricular hypertrophy, osteoarthritis, gastroesophageal reflux disease, diverticulosis, rheumatoid arthritis diagnosed in 2005 on Enbrel and followed by Dr. Goldman. Patient states on Thursday on her right chin area she had a red area that was approximately size of an eraser. By Thursday it was worse and she went to [facility] and was placed on amoxicillin but was not getting any better. She then came into [facility] emergency center on July 02 and was placed on Bactrim. Patient received turned that evening as she was continuing to worsen with increased redness swelling and firmness to the chin into the jaw and neck region. Patient has a prescription for prednisone at home at all times in case she develops an exacerbation and took prednisone 20 mg on Thursday. Patient was found to be afebrile, heart rate initially 122, blood pressure 132/75, pulse ox 95% on room air. WBC 17.1, hemoglobin 14.8 and a platelet count 300. Blood sugar was 138. Lactic acid initially 2.8 and repeat at 0.9. CAT scan of the neck soft tissue reveals soft tissue swelling without abscess. Patient is status post 2-1/2 L of IV fluids. She was initially started on Zosyn and clindamycin for one dose each and admitted to the observation unit. He was subsequently placed on Unasyn and vancomycin. REVIEW OF SYSTEMS Constitutional: No fever, no chills, no night sweats. No weight change. No weakness, fatigue or lethargy. EENT: No headache. No nasal drainage or congestion. No epistaxis. No sore throat. Lungs: No shortness of breath, cough, no sputum production. No wheezing. Cardiovascular: No chest pain, no lower extremity edema. No lightheadedness or dizziness. No syncopal episodes. Abdominal: No abdominal pain. No nausea, vomiting. No diarrhea. No constipation. No loss of appetite. Genitourinary: No dysuria, increased frequency, urgency. No urinary retention. Musculoskeletal: No myalgias. No muscle weakness. Integumentary: Reports large area of redness and inflammation with swelling of the right jaw and chin. No rash. Neurologic: No aphasia. No facial droop. No change in mentation. Endocrine: No abnormal blood sugars. PHYSICAL EXAMINATION Gen: This is a 59-year-old female. She is resting in bed and appears to be comfortable. No respiratory distress is noted. HEENT: Head is atraumatic, normocephalic. Pupils equal, round. Sclerae is anicteric. Patient has erythema and edema to the right lower lip chin and jaw with upper neck involvement. Swelling includes the right lower lip with no open wounds noted. No drainage. NECK: Supple. No JVD. No lymphadenopathy. No thyromegaly. No stridor noted LUNGS: Clear to auscultation. No wheezes or rhonchi. No intercostal retractions. HEART: Regular rate and rhythm. No murmur. ABDOMEN: Soft. Bowel sounds are present. No masses. No tenderness. EXTREMITIES: No pedal edema. No calf tenderness. NEUROLOGICAL: Patient is awake, alert and oriented x3. ASSESSMENT Sepsis secondary to facial cellulitis in an immunocompromised host Rheumatoid arthritis PLAN Unasyn can be discontinued Continue vancomycin Obtain wound culture if drainage develops Input from ENT Continue supportive care Thank you kindly for this consultation The above dictated assessment and findings were discussed with Dr. Lewis. The impression and plan of care have been directed as dictated. Renita Ornelas nurse practitioner acting as scribe for Dr. Lewis. Past Medical History Past Medical History: GERD/Reflux, Hypertension, Rheumatoid Arthritis (RA) Additional Past Medical History / Comment(s): DIVERTICULOSIS, elevated liver enzymes recently- monitoring History of Any Multi-Drug Resistant Organisms: None Reported Past Surgical History: Joint Replacement, Orthopedic Surgery Additional Past Surgical History / Comment(s): KNEE SURGERIES LEFT X 9, left knee replaced, D & C Past Anesthesia/Blood Transfusion Reactions: No Reported Reaction, Family History of Problems w/ Anesthesia Additional Past Anesthesia/Blood Transfusion Reaction / Comm: daughter passed out after wisdom teeth removed, fine w/anesthesia since Past Psychological History: No Psychological Hx Reported Smoking Status: Former smoker Past Alcohol Use History: Occasional Additional Past Alcohol Use History / Comment(s): smoked 30 years 1ppd, quit 2011 Past Drug Use History: None Reported - Past Family History Mother Family Medical History: Diabetes Mellitus, Hypertension Father Family Medical History: Hypertension, Renal Disease Brother(s) Family Medical History: Diabetes Mellitus Sister(s) Family Medical History: Diabetes Mellitus Daughter(s) Family Medical History: No Reported History Son(s) Family Medical History: No Reported History Medications and Allergies Home Medications Medication Instructions Recorded Confirmed Type Pantoprazole [Protonix] 40 mg PO Q48H 12/13/15 07/02/20 History amLODIPine BESYLATE [Amlodipine 5 mg PO DAILY 12/13/15 07/02/20 History Besylate] Amoxicillin 875 mg PO Q12HR 07/02/20 07/02/20 History Cholecalciferol [Vitamin D3 (25 25 mcg PO DAILY 07/02/20 07/02/20 History Mcg = 1000 Iu)] Etanercept [Enbrel Sureclick] 50 mg SQ FR 07/02/20 07/02/20 History Multivitamins, Thera [Multivitamin 1 tab PO DAILY 07/02/20 07/02/20 History (formulary)] Sulfamethox-Tmp 800-160Mg [Bactrim 1 tab PO Q12HR #28 tab 07/02/20 07/02/20 Rx DS 800-160 mg] predniSONE 10 mg PO DAILY PRN 07/02/20 07/02/20 History Allergies Allergy/AdvReac Type Severity Reaction Status Date / Time hydrocodone [From Vicodin] Allergy Unknown sweating,blood Verified 07/02/20 21:42 pressure,n&v,dizziness oxycodone [From Percocet] Allergy Unknown sweating,bloodpressure Verified 07/02/20 21:42 drops,n/v, dizziness hydromorphone [From Dilaudid] Allergy sweating, Verified 07/02/20 21:42 blood pressure dropped, n/v,dizziness Physical Exam Vitals: Vital Signs Temp Pulse Pulse Resp BP BP Pulse Ox 07/03/20 08:00 99.1 F 90 18 141/71 98 07/03/20 02:00 97.8 F 93 16 157/84 95 07/03/20 00:31 97.8 F 93 16 157/84 95 07/02/20 22:51 98.6 F 98 16 167/101 98 07/02/20 22:23 98.6 F 98 16 167/101 98 07/02/20 19:55 98.7 F 122 H 18 132/75 95 Intake and Output 07/02/20 07/03/2007/03/21 22:59 06:59 14:59 Intake Total 910 Balance 910 Intake: Intake, IV Titration 910 Amount Sodium Chloride 0.9% 1, 910 000 ml @ 130 mls/hr IV . Q7H42M [facility] Rx#:[id number] Other: Voiding Method Toilet # Voids 3 3 Weight 81.647 kg 81.647 kg Results CBC & Chem 7: 07/02/20 20:40 07/02/20 20:40 Labs: Abnormal Lab Results - Last 24 Hours (Table) 07/02/20 07/02/20 07/02/20 Range/Units 20:40 20:40 20:40 WBC 17.1 H (3.8-10.6) k/uL Neutrophils # 13.2 H (1.3-7.7) k/uL Glucose 138 H (74-99) mg/dL Plasma Lactic Acid [place] 2.8 H* (0.7-2.0) mmol/L
[2020-07-03] MEDS: traMADol 50 MG TAB PO PRN (16:51)
[2020-07-03] MEDS: DEXAMETHASONE SOD PHOSPHATE 10 MG/ML 1 ML VIAL IV SCH (16:52)
[2020-07-03] MEDS: HEPARIN SODIUM,PORCINE 5,000 UNIT/ML 1 ML VIAL SQ SCH (20:09)
[2020-07-03] MEDS: TEMAZEPAM 15 MG CAP PO PRN (20:10)
[2020-07-04] MEDS: DEXAMETHASONE SOD PHOSPHATE 10 MG/ML 1 ML VIAL IV SCH ×3 (02:00→17:25)
[2020-07-04] MEDS: KETOROLAC 15 MG/ML 1 ML VIAL IVP SCH ×3 (02:01→17:24)
[2020-07-04] MEDS: VANCOMYCIN 1,500 MG in SODIUM CHLORIDE 0.9% 250 ML IVPB SCH ×2 (05:29→17:23)
--- NOTE | 2020-07-04 05:44 | CONS ---
CONSULTATION DATE OF SERVICE: 07/03/2020 REASON FOR CONSULTATION: Facial cellulitis. HISTORY OF PRESENT ILLNESS: This patient is a pleasant 59-year-old female who was admitted via [facility] Emergency Room for definitive treatment of facial cellulitis. The patient states that on 06/29/2020, she noted a small pimple like lesion on her chin. The patient denies squeezing the area, but she did state that she massaged it vigorously. On 06/30/2020, the patient noted that the area had become quite tender, swollen and hard. She went to one of the urgent care centers and was evaluated by a physician's criminal legal assistant or a nurse practitioner and was subsequently placed on Augmentin 875 mg p.o. b.i.d. She went home and started taking her medication. On 06/30/2020, she noted that the swelling seemed to be progressing and got worse. She subsequently went to [facility] Emergency Room and was seen by one of the medical personnel there and was placed on Bactrim and was told that she had an abscess, although no CT scan of the face or neck was done. The following 07/02/2020, the area became even more tender and the redness and firmness spread further into her face and she went back to [facility] Emergency Room and was admitted. At the time of her admission, she was placed on Zosyn and vancomycin. A CT scan of the neck did not reveal any evidence of any abscess but did show significant inflammation of the soft tissues in the area of the chin. ALLERGIES: HYDROCODONE, OXYCODONE, AND DILAUDID. CURRENT MEDICATIONS: Current home medications include prednisone, Enbrel, amlodipine, and Protonix. PAST MEDICAL HISTORY: There is no history of asthma, diabetes mellitus. There is a history of hypertension. REVIEW OF SYSTEMS: CARDIOVASCULAR: Positive for hypertension. RESPIRATORY: Negative. GASTROINTESTINAL: Positive for gastroesophageal reflux disorder. MUSCULOSKELETAL: Positive for rheumatoid arthritis. The remainder of the review of systems is unremarkable. PHYSICAL EXAMINATION: Patient is normocephalic. Tympanic membranes are normal. Pupils equal, round, react to light and accommodation. Extraocular movements within normal limits. Intranasal examination reveals moderate septal deviation with compensatory hypertrophy of inferior turbinates. Examination of oropharynx is unremarkable. Examination of facial skin reveals patient has significant swelling/edema, erythema, induration, non- fluctuant, and moderate to severe tenderness in the region of the chin/mentum. Palpation does not reveal evidence of any abscess and there is no extension into the oropharynx. Palpation of the neck bilaterally does not reveal any evidence of any abnormal adenopathy or neck masses. Cranial nerves 2-12 and remainder of the head and neck exam is unremarkable. Chest cardiovascular: Both lung yi are clear to percussion and auscultation. Patient is in regular sinus rhythm S1, S2 are present without any murmurs, S3s or S4s. Peripheral pulses are bilaterally symmetrical. Abdomen there is no evidence any masses megaly or tenderness. The abdomen is soft. The remainder of physical exam is unremarkable. IMPRESSION: Facial cellulitis. PLAN: I advised continuing the present course of antibiotics with vancomycin and Zosyn or if the Infectious Disease Service is inclined to change it to a different medication that would be appropriate. I will also ask the nurses to apply warm compresses 3 or 4 times daily. We will increase her tramadol from 50 mg q.6 to 100 mg q 4-6 hours p.r.n. for pain, Restoril 30 mg p.o. q.h.s. p.r.n. and I will place her on a dexamethasone regimen as outlined in the orders on the patient's chart. The dexamethasone should definitely helped reduce some of the swelling and will actually help the antibiotic to work better. I will follow this patient with you while she is in the hospital. I want to take this opportunity to thank you for allowing me to assist in the care of your patient. If I can be of any further assistance, please feel free to call my office. MMODL / IJN: [id number] / ELEUTERIO
[2020-07-04 08:14] LABS: HGB 12.9 gm/dL (11.4-16.0); MCH 29.7 pg (25.0-35.0); MCHC 32.3 g/dL (31.0-37.0); Mean Platelet Volume 9.4; Platelet Count 244 k/uL (150-450); RBC 4.35 m/uL (3.80-5.40); RDW 12.4 % (11.5-15.5); WBC 12.5 k/uL (3.8-10.6)
[2020-07-04] MEDS: PANTOPRAZOLE 40 MG TABLET PO SCH (08:36)
[2020-07-04] MEDS: MULTIVITAMINS, THERA 1 EACH TAB PO SCH (08:37)
[2020-07-04] MEDS: amLODIPine 5 MG TAB PO SCH (09:17)
[2020-07-04] MEDS: HEPARIN SODIUM,PORCINE 5,000 UNIT/ML 1 ML VIAL SQ SCH ×2 (09:17→19:15)
[2020-07-04 09:46] LABS: African American GFR (CKD) 110.7 (60.0-200.0); Non-African American GFR(CKD) 95.5 (60.0-200.0)
--- NOTE | 2020-07-04 12:37 | P.PN ---
Subjective Progress Note Date: 07/04/20 HISTORY OF PRESENT ILLNESS This is a 59-year-old female patient of Dr. Cisnreos with past medical history significant for hypertension and hypertensive cardiovascular di sease with left ventricular hypertrophy, osteoarthritis, gastroesophageal reflux disease, diverticulosis, rheumatoid arthritis diagnosed in 2005 on Enbrel and followed by Dr. Goldman. Patient states on Thursday on her right chin area she had a red area that was approximately size of an eraser. By Thursday it was worse and [facility] and was [facility] on amoxicillin but was not getting any better. She then came into [facility] emergency center on July 02 and was placed on Bactrim. Patient received turned that evening as she was continuing to worsen with increased redness swelling and firmness to the chin into the jaw and neck region. Patient has a prescription for prednisone at home at all times in case she develops an exacerbation and took prednisone 20 mg on Thursday. Patient was found to be afebrile, heart rate initially 122, blood pressure 132/75, pulse ox 95% on room air. WBC 17.1, hemoglobin 14.8 and a platelet count 300. Blood sugar was 138. Lactic acid initially 2.8 and repeat at 0.9. CAT scan of the neck soft tissue reveals soft tissue swelling without abscess. Patient is status post 2-1/2 L of IV fluids. She was initially started on Zosyn and clindamycin for one dose each and admitted to the observation unit. A consult was placed with ENT and we've added a consult for Dr. Lewis and started the patient on Unasyn and vancomycin. 07/04: Patient has been seen by Dr. Mcleod with no plan for intervention. Patient is also been seen by Dr. Lewis and Unasyn has been discontinued with recommendations to continue vancomycin for now. Patient states that she slept well last night for the first time since Thursday. She is now complaining of a sore throat. She still has edema but feels that she is much better today. Decreased redness. She has been afebrile, heart rate 87, blood pressure 137/70, pulse ox 94% on room air. WBC down to 12.5, hemoglobin 12.9, platelet count 244. Creatinine 0.7. IV fluids will be discontinued. Anticipate discharge home tomorrow. REVIEW OF SYSTEMS Constitutional: No fever, no chills, no night sweats. No weight change. No weakness, fatigue or lethargy. No daytime sleepiness. EENT: No headache. No blurred vision or double vision, no loss of vision. No loss of Hearing, no ringing in the ears, no dizziness. No nasal drainage or congestion. No epistaxis. Reports sore throat. Reports facial pain. Lungs: No shortness of breath, cough, no sputum production. No wheezing. Cardiovascular: No chest pain, no lower extremity edema. No palpitations. No paroxysmal nocturnal dyspnea. No orthopnea. No lightheadedness or dizziness. No syncopal episodes. Abdominal: No abdominal pain. No nausea, vomiting. No diarrhea. No constipation. No bloody or tarry stools.. No loss of appetite. Genitourinary: No dysuria, increased frequency, urgency. No urinary retention. Musculoskeletal: No myalgias. No muscle weakness, no gait dysfunction, no frequent falls. No back pain. No neck pain. Integumentary: Large area of redness and inflammation with swelling to the right jaw and chin. No rash or pruritus. No unusual bruising. No change in hair or nails. Neurologic: No aphasia. No facial droop. No change in mentation. No head injury. No headache. No paralysis. No paresthesia. Psychiatric: No depression. No anxiety. No mood swings. Endocrine: No abnormal blood sugars. No weight change. No excessive sweating or thirst. No cold intolerance. PHYSICAL EXAMINATION Gen: This is a 59-year-old female. She is resting in bed and appears to be comfortable. No respiratory distress is noted. HEENT: Head is atraumatic, normocephalic. Pupils equal, round. Sclerae is anicteric. Patient has erythema and edema to the right lower lip chin and jaw with upper neck involvement with decreased swelling from yesterday. Decreased redness. Swelling includes the right lower lip with no open wounds noted. No drainage. Positive lymph node enlargement NECK: Supple. No JVD. No lymphadenopathy. No thyromegaly. No stridor noted LUNGS: Clear to auscultation. No wheezes or rhonchi. No intercostal retractions. HEART: Regular rate and rhythm. No murmur. ABDOMEN: Soft. Bowel sounds are present. No masses. No tenderness. EXTREMITIES: No pedal edema. No calf tenderness. NEUROLOGICAL: Patient is awake, alert and oriented x3. Cranial nerves 2 through 12 are grossly intact. ASSESSMENT AND PLAN 1. Sepsis secondary to facial cellulitis in an immunocompromised host. Enbrel and prednisone on hold. Consult with ENT and infectious disease appreciated. Unasyn was discontinued and patient continued on vancomycin. Continue Tramadol 50 mg 4 times daily as needed for pain and continue Toradol changed to scheduled 50 mg IV push every 8 hours. Discontinue IV fluids 2. Hypertension, hypertensive cardiovascular disease. Continue Norvasc 5 mg daily. 3. Rheumatoid arthritis under the care of Dr. Goldman. Enbrel and prednisone on hold. 4. Gastroesophageal reflux disease. Continue Protonix 40 mg daily. 5. Generalized osteoarthritis, stable. 6. DVT prophylaxis. Heparin subcu. DISCHARGE PLAN Home on . Impression and plan of care have been directed as dictated by the signing physician. Renita Ornelas nurse practitioner acting as scribe for signing physician. Objective - Vital Signs Vital signs: Vital Signs Temp 97.8 F 07/04/20 07:40 Pulse 87 07/04/20 07:40 Resp 16 07/04/20 07:40 BP 137/75 07/04/20 07:40 Pulse Ox 94 L 07/04/20 07:40 Intake & Output 07/03/20 07/04/20 07/04/20 18:59 06:59 18:59 Intake Total 200 1390 Output Total 0 Balance 200 1390 Intake: Intake, IV Titration 850 Amount Sodium Chloride 0.9% 1, 600 000 ml @ 75 mls/hr IV . [id number] [facility] Rx#:[id number] Vancomycin 1,500 mg In 250 Sodium Chloride 0.9% 250 ml @ 125 mls/hr IVPB Q12HR@0600,1800 [facility] Rx#: [id number] Oral 200 540 Output: Stool 0 Other: Voiding Method Toilet Toilet # Voids 4 4 - Labs CBC & Chem 7: 07/04/20 03:48 07/04/20 03:48 Labs: Microbiology - Last 24 Hours (Table) 07/02/20 20:40 Blood Culture - Preliminary Blood No Growth after 24 hours
--- NOTE | 2020-07-04 14:07 | PN ---
PROGRESS NOTE DATE OF SERVICE: 07/04/2020 REASON FOR FOLLOWUP: Chin abscess and cellulitis. INTERVAL HISTORY: The patient is currently afebrile. The patient is feeling better. Breathing comfortably. Denies having any chest pain. No shortness of breath or cough. Overall pain and discomfort to the chin area has decreased. No drainage. PHYSICAL EXAMINATION: Blood pressure 137/75, pulse of 87, temperature 97.8. She is 94% on room air. General description is a middle-aged female lying in bed in no distress. HEENT EXAMINATION: Right chin area swelling and redness has slightly decreased. No drainage. LUNGS: Unlabored breathing, clear to auscultation anteriorly. HEART: S1, S2. Regular rate and rhythm. ABDOMEN: Soft, no tenderness. LABS: Hemoglobin is 12.9, white count 12.5, creatinine 0.7. Blood culture has been negative. DIAGNOSTIC IMPRESSION AND PLAN: Patient with chin abscess and cellulitis. ENT recommending any drainage. Clinically responding to vancomycin. Plan is for [facility] and a 10-day course of daptomycin to continue in outpatient setting. Continue supportive care. MMODL / IJN: [id number] /
[2020-07-04] MEDS: TEMAZEPAM 15 MG CAP PO PRN (19:14)
[2020-07-04] MEDS: traMADol 50 MG TAB PO PRN (20:36)
[2020-07-04] MEDS ORDERED: CALCIUM CARBONATE 500 MG CHEWABLE PO PRN (21:25)
[2020-07-05] MEDS: KETOROLAC 15 MG/ML 1 ML VIAL IVP SCH (01:22)
[2020-07-05] MEDS: DEXAMETHASONE SOD PHOSPHATE 10 MG/ML 1 ML VIAL IV SCH (01:22)
[2020-07-05 02:06] VITALS: TEMP 97.9
[2020-07-05] MEDS ORDERED: VANCOMYCIN TROUGH DUE 1 EACH MISC MISCELLANE ONE (05:00)
--- NOTE | 2020-07-05 06:11 | PN ---
PROGRESS NOTE DATE OF SERVICE: 07/04/2020 SUBJECTIVE: Vital signs stable. The patient states that she is doing much better compared to yesterday. Most of the swelling has gone down and she is able to open her mouth wider and with much less pain. She was started on the dexamethasone regimen yesterday. OBJECTIVE: HEENT: Patient is normocephalic. Tympanic membranes are normal. Examination of the facial skin reveals that attention to the chin reveals that the erythema, edema, and induration as well as the tenderness has markedly decreased. Again, there is no evidence of any fluctuance. There is also no evidence of any adenopathy in any neck triangle. The remainder of the head and neck exam is essentially unremarkable. ASSESSMENT: Facial cellulitis. PLAN: As I stated yesterday, this patient can be discharged to home tomorrow, 07/05/2019. In addition, it would be a good idea to place her on some type of an antibiotic. As you know, unfortunately, many of the aminoglycosides have a tendency to cause hearing loss issues. Therefore, this should be watched closely, if it is decided to send her home on an intravenous aminoglycoside. I will not need to see this patient for followup in my office. I want to take this opportunity to thank you again for allowing me to assist in the care of your patient. MMODL / MAXIMUSN: [id number] / MTDD
[2020-07-05] MEDS: VANCOMYCIN 1,500 MG in SODIUM CHLORIDE 0.9% 250 ML IVPB SCH (06:27)
[2020-07-05] MEDS: PANTOPRAZOLE 40 MG TABLET PO SCH (07:41)
[2020-07-05 07:44] LABS: HCT 39.6 % (34.0-46.0); HGB 13.3 gm/dL (11.4-16.0); MCH 30.6 pg (25.0-35.0); MCHC 33.6 g/dL (31.0-37.0); MCV 91.2 fL (80.0-100.0); Mean Platelet Volume 8.4; Platelet Count 291 k/uL (150-450); RBC 4.34 m/uL (3.80-5.40); RDW 12.1 % (11.5-15.5); WBC 28.9 k/uL (3.8-10.6)
[2020-07-05] MEDS ORDERED: DAPTOmycin 500 MG in SODIUM CHLORIDE 0.9% 50 ML IVPB SCH (08:00)
--- NOTE | 2020-07-05 08:03 | P.DS ---
Providers Date of admission: 07/03/20 09:40 Expected date of discharge: 07/05/20 Attending physician: Ed Quezada Consults: 07/02/20 22:03 Consult Physician Routine Consulting Provider: Vazquez Mcleod Consult Reason/Comments: facial infection Do you want consulting provider notified?: Yes 07/03/20 08:30 Consult Physician Routine Consulting Provider: Tracey Lewis Consult Reason/Comments: facial cellulitis Do you want consulting provider notified?: Yes [facility]: HISTORY OF PRESENT ILLNESS This is a 59-year-old female patient of Dr. Cisneros with past medical history significant for hypertension and hypertensive cardiovascular disease with left ventricular hypertrophy, osteoarthritis, gastroesophageal reflux disease, diverticulosis, rheumatoid arthritis diagnosed in 2005 on Enbrel and followed by Dr. Goldman. Patient states on Thursday on her right chin area she had a red area that was approximately size of an eraser. By Thursday it was worse and [facility] on amoxicillin but was not getting any better. She then came into [facility] emergency center on July 02 and was placed on Bactrim. Patient received turned that evening as she was continuing to worsen with increased redness swelling and firmness to the chin into the jaw and neck region. Patient has a prescription for prednisone at home at all times in case she develops an exacerbation and took prednisone 20 mg on Thursday. Patient was found to be afebrile, heart rate initially 122, blood pressure 132/75, pulse ox 95% on room air. WBC 17.1, hemoglobin 14.8 and a platelet count 300. Blood sugar was 138. Lactic acid initially 2.8 and repeat at 0.9. CAT scan of the neck soft tissue reveals soft tissue swelling without abscess. Patient is status post 2-1/2 L of IV fluids. She was initially started on Zosyn and clindamycin for one dose each and admitted to the observation unit. A consult was placed with ENT and we've added a consult for Dr. Lewis and started the patient on Unasyn and vancomycin. 07/04: Patient has been seen by Dr. Mcleod with no plan for intervention. Patient is also been seen by Dr. Lewis and Unasyn has been discontinued with recommendations to continue vancomycin for now. Patient states that she slept well last night for the first time since Thursday. She is now complaining of a sore throat. She still has edema but feels that she is much better today. Decreased redness. She has been afebrile, heart rate 87, blood pressure 137/70, pulse ox 94% on room air. WBC down to 12.5, hemoglobin 12.9, platelet count 244. Creatinine 0.7. IV fluids will be discontinued. Anticipate discharge home tomorrow. 07/05: Midline was placed yesterday and Dr. Lewis is planning for daptomycin for 10 day course. Patient will receive this at the [facility] office. Patient has been afebrile, heart rate 70, blood pressure 133/70, pulse ox 92-95% on room air. Blood culture no growth at 48 hours. Patient has been cleared for discharge by ENT and ID. Decreased redness and swelling noted. @nd head is starting to form on right lower chin. Patient will be discharged home today in stable condition. ASSESSMENT AND PLAN 1. Sepsis secondary to facial cellulitis in an immunocompromised host. 3. Rheumatoid arthritis under the care of Dr. Goldman. 4. Gastroesophageal reflux disease. 5. Generalized osteoarthritis, stable. DISCHARGE PLAN Home with IV antibiotics at [facility]. Impression and plan of care have been directed as dictated by the signing physician. Renita Ornelas nurse practitioner acting as scribe for signing physician. Patient Condition at Discharge: Good Plan - Discharge Summary Discharge Rx Participant: Yes New Discharge Prescriptions: New DAPTOmycin [Cubicin] 500 mg IV DAILY #10 bag Continue amLODIPine BESYLATE [Amlodipine Besylate] 5 mg PO DAILY Pantoprazole [Protonix] 40 mg PO Q48H Cholecalciferol [Vitamin D3 (25 Mcg = 1000 Iu)] 25 mcg PO DAILY predniSONE 10 mg PO DAILY PRN PRN Reason: RA FLARE UP Multivitamins, Thera [Multivitamin (formulary)] 1 tab PO DAILY Etanercept [Enbrel Sureclick] 50 mg SQ FR Discontinued Sulfamethox-Tmp 800-160Mg [Bactrim DS 800-160 mg] 1 tab PO Q12HR #28 tab Amoxicillin 875 mg PO Q12HR Discharge Medication List Pantoprazole [Protonix] 40 mg PO Q48H 12/13/15 [History] amLODIPine BESYLATE [Amlodipine Besylate] 5 mg PO DAILY 12/13/15 [History] Cholecalciferol [Vitamin D3 (25 Mcg = 1000 Iu)] 25 mcg PO DAILY 07/02/20 [History] Etanercept [Enbrel Sureclick] 50 mg SQ FR 07/02/20 [History] Multivitamins, Thera [Multivitamin (formulary)] 1 tab PO DAILY 07/02/20 [History] predniSONE 10 mg PO DAILY PRN 07/02/20 [History] DAPTOmycin [Cubicin] 500 mg IV DAILY #10 bag 07/05/20 [Rx] Follow up Appointment(s)/Referral(s): [facility],Infusion [NON-STAFF] - 07/06/20 9:00 am (This infusion is daily for 10 days.) Shayne Cisneros DO [Primary Care Provider] - 1 Week (early next week) Tracey Lewis MD [STAFF PHYSICIAN] - 1 Week Activity/Diet/Wound Care/Special Instructions: Hold Enbrel and Prednisone one more week. Off work. Patient cleared to return to work on July 09. Discharge Disposition: HOME SELF-CARE
[2020-07-05] MEDS: amLODIPine 5 MG TAB PO SCH (09:02)
[2020-07-05] MEDS: HEPARIN SODIUM,PORCINE 5,000 UNIT/ML 1 ML VIAL SQ SCH (09:02)
[2020-07-05] MEDS: MULTIVITAMINS, THERA 1 EACH TAB PO SCH (09:02)
[2020-07-05 09:38] LABS: African American GFR (CKD) 116.4 (60.0-200.0); Anion Gap 14.2 mmol/L (4.00-12.00); BUN/Creat Ratio 21.67 Ratio (12.00-20.00); Calcium 8.9 mg/dL (8.7-10.3); Carbon Dioxide 16.8 mmol/L (21.6-31.8); Non-African American GFR(CKD) 100.5 (60.0-200.0); Potassium 5.1 mmol/L (3.5-5.5)
[2020-07-05 09:50] VITALS: BP 129/71; PULSE 74; RESP 20
[2020-07-05] MEDS ORDERED: DEXAMETHASONE SOD PHOSPHATE 4 MG/ML 1 ML VIAL IV SCH (10:00)
== END 2020-07-05 09:55 | disposition home or self-care (01) | DRG 872 ==
LOC: EC 19:54 → 6NMEDSUR 22:02 → OBSVTOIN 07-03 09:40
PROVIDERS: ADMIT Internal Medicine Geriatric Medicine; ATTEND Internal Medicine Geriatric Medicine
PROC: 05HF33Z Insertion of Infusion Device into Left Cephalic Vein, Percutaneous Approach (ICD-10-PCS; principal; 2020-07-04 11:00)
DX: A41.9 Sepsis, unspecified organism (principal); D84.9 Immunodeficiency, unspecified; E87.2 Acidosis; L03.211 Cellulitis of face; L02.01 Cutaneous abscess of face; I11.9 Hypertensive heart disease without heart failure; M06.9 Rheumatoid arthritis, unspecified; K21.9 Gastro-esophageal reflux disease without esophagitis; K57.90 Diverticulosis of intestine, part unspecified, without perforation or abscess without bleeding; M15.9 Polyosteoarthritis, unspecified; Z79.899 Other long term (current) drug therapy; Z96.652 Presence of left artificial knee joint; Z87.891 Personal history of nicotine dependence; Z88.5 Allergy status to narcotic agent; Z83.3 Family history of diabetes mellitus; Z82.49 Family history of ischemic heart disease and other diseases of the circulatory system; Z84.1 Family history of disorders of kidney and ureter
CPT/HCPCS: 36410; 36415; 70491; 76937; 80048; 80053; 80202; 82565; 83605; 85025; 85027; 87040; 96365; 96367; 99285

== ENCOUNTER 2020-07-05 18:52 | Inpatient (IN) | payer MEDICAID ==
--- NOTE | 2020-07-05 19:39 | ED ---
General Adult HPI - General Source: patient Mode of arrival: ambulatory Limitations: no limitations <Teena Brown - Last Filed: 07/05/20 21:43> <Ivette Boland - Last Filed: 07/07/20 11:03> - General Chief complaint: Chest Pain Stated complaint: right side rib pain Time Seen by Provider: 07/05/20 18:55 - History of Present Illness Initial comments: 59 year-old female patient presents to the emergency department today for evaluation of right sided abdominal pain. Patient states that the pain started yesterday while she was admitted to the hospital for facial cellulitis and abscess. Patient states that the pain starts under her right rib and travels down the right side of her abdomen and across her lower abdomen. States that one point he did have some radiation of the pain through to her back. States the pain worsens when she stands, sits up, or takes a deep breath. States it resolves when she lies flat. She states that she has lost her appetite. Denies any nausea or vomiting. States she has not had a bowel movement for the last couple of days. Denies hematochezia or melena. Denies any fever or chills. States she has some hot flashes to the night. Patient states her pain has been progressively worsening since yesterday. She has had hysterectomy in the past and other abdominal surgeries. She does currently have a PICC line for treatment of her facial infection, she is receiving vancomycin. Currently taking steroids. Patient denies any recent rash, cough, shortness of breath, chest pain, numbness, tingling, dizziness, weakness, hematuria, dysuria, urinary urgency, urinary frequency, headache, visual changes, or any other complaints. (Teena Brown) - Related Data Home Medications Medication Instructions Recorded Confirmed Pantoprazole [Protonix] 40 mg PO Q48H 12/13/15 07/05/20 amLODIPine BESYLATE [Amlodipine 5 mg PO DAILY 12/13/15 07/05/20 Besylate] Cholecalciferol [Vitamin D3 (25 25 mcg PO DAILY 07/02/20 07/05/20 Mcg = 1000 Iu)] Etanercept [Enbrel Sureclick] 50 mg SQ FR 07/02/20 07/05/20 Multivitamins, Thera [Multivitamin 1 tab PO DAILY 07/02/20 07/05/20 (formulary)] predniSONE 10 mg PO DAILY PRN 07/02/20 07/05/20 Calcium Carbonate [Tums] 500 mg PO ONCE PRN 07/05/20 07/05/20 Docusate [Colace] 100 mg PO ONETIME PRN 07/05/20 07/05/20 Previous Rx's Medication Instructions Recorded DAPTOmycin [Cubicin] 500 mg IV DAILY #10 bag 07/05/20 Allergies Allergy/AdvReac Type Severity Reaction Status Date / Time hydrocodone [From Vicodin] Allergy Unknown sweating,blood Verified 07/05/20 21:49 pressure,n&v,dizziness oxycodone [From Percocet] Allergy Unknown sweating,bloodpressure Verified 07/05/20 21:49 drops,n/v, dizziness hydromorphone [From Dilaudid] Allergy sweating, Verified 07/05/20 21:49 blood pressure dropped, n/v,dizziness Review of Systems ROS Other: All systems not noted in ROS Statement are negative. <Teena Brown - Last Filed: 07/05/20 21:43> ROS Other: All systems not noted in ROS Statement are negative. <Ivette Boland - Last Filed: 07/07/20 11:03> ROS Statement: Those systems with pertinent positive or pertinent negative responses have been documented in the HPI. Past Medical History Past Medical History: GERD/Reflux, Hypertension, Rheumatoid Arthritis (RA) Additional Past Medical History / Comment(s): DIVERTICULOSIS, elevated liver enzymes recently- monitoring History of Any Multi-Drug Resistant Organisms: None Reported Past Surgical History: Joint Replacement, Orthopedic Surgery Additional Past Surgical History / Comment(s): KNEE SURGERIES LEFT X 9, left knee replaced, D & C Past Anesthesia/Blood Transfusion Reactions: No Reported Reaction, Family History of Problems w/ Anesthesia Additional Past Anesthesia/Blood Transfusion Reaction / Comment(s): daughter passed out after wisdom teeth removed, fine w/anesthesia since Past Psychological History: No Psychological Hx Reported Smoking Status: Former smoker Past Alcohol Use History: Occasional Past Drug Use History: None Reported - Past Family History Mother Family Medical History: Diabetes Mellitus, Hypertension Father Family Medical History: Hypertension, Renal Disease Brother(s) Family Medical History: Diabetes Mellitus Sister(s) Family Medical History: Diabetes Mellitus Daughter(s) Family Medical History: No Reported History Son(s) Family Medical History: No Reported History <Teena Brown - Last Filed: 07/05/20 21:43> General Exam Limitations: no limitations General appearance: alert, in no apparent distress, other (Physical well-dev eloped, well-nourished adult female patient in no acute distress. Vital signs upon presentation are temperature 98.0F, pulse 85, respirations 18, blood pressure 135/92, pulse ox 98% on room air.) Eye exam: Present: normal appearance, PERRL, EOMI. Absent: scleral icterus, conjunctival injection, periorbital swelling ENT exam: Present: normal exam, normal oropharynx, mucous membranes moist Respiratory exam: Present: normal lung sounds bilaterally. Absent: respiratory distress, wheezes, rales, rhonchi, stridor Cardiovascular Exam: Present: regular rate, normal rhythm, normal heart sounds. Absent: systolic murmur, diastolic murmur, rubs, gallop, clicks GI/Abdominal exam: Present: soft, tenderness (Right upper quadrant, right lower quadrant, left lower quadrant.), normal bowel sounds. Absent: distended, guarding, rebound, rigid Neurological exam: Present: alert, oriented X3, CN II-XII intact Psychiatric exam: Present: normal affect, normal mood Skin exam: Present: warm, dry, intact, normal color. Absent: rash <Teena Brown - Last Filed: 07/05/20 21:43> Course Vital Signs 07/05/20 07/05/20 07/05/20 18:55 21:00 22:04 Temperature 98 F 98.6 F Pulse Rate 85 98 101 H Respiratory 18 18 20 Rate Blood Pressure 155/92 185/104 186/104 O2 Sat by Pulse 98 97 97 Oximetry Medical Decision Making - Lab Data Result diagrams: 07/05/20 19:52 07/05/20 19:52 - Radiology Data Radiology results: report reviewed, image reviewed <Teena Brown - Last Filed: 07/05/20 21:43> - Lab Data Result diagrams: 07/07/20 06:00 07/07/20 06:00 <Ivette Boland - Last Filed: 07/07/20 11:03> - Medical Decision Making 59-year-old female patient presents to the emergency department today reporting right-sided abdominal pain especially with standing or sitting up. She reports no appetite, no vomiting. No fevers or chills. Labs reviewed and did reveal white blood cell count at 25.6 with neutrophils at 23.8. Lactic acid is 2.6. Patient is resting comfortably in bed however does have increased pain and she sits up. CT abdomen and pelvis did reveal pneumoperitoneum with free air mostly in the right upper quadrant. Dr. Lebron was contacted and will be taking patient to the OR. She is started on Zosyn. She is nothing by mouth. We did consult Dr. Quezada as she does have current facial infection including cellulitis and abscess for which she is receiving IV antibiotics. She was discharged from inpatient here today. (Teena Brown) I was available for consultation in the emergency department. The history and physical exam were done by the midlevel provider. I was consulted for this patients care. I reviewed the case with the midlevel provider and based on their presentation of the patient, I agree with the assessment, medical decision making and plan of care as documented. I spoke with Dr. Lebron who will take the patient to the OR tonight Chart was dictated using [employer] dictation software. Attempts were made to correct any dictation errors however some typographical errors may persist. Patient was seen during a national state of emergency due to the Covid-19 pandemic. (Ivette Boland) - Lab Data Lab Results 07/05/20 07/05/20 07/05/20 Range/Units 19:52 19:52 19:52 WBC 25.6 H (3.8-10.6) k/uL RBC 4.50 (3.80-5.40) m/uL Hgb 13.7 (11.4-16.0) gm/dL Hct 40.0 (34.0-46.0) % MCV 88.9 (80.0-100.0) fL MCH 30.4 (25.0-35.0) pg MCHC 34.2 (31.0-37.0) g/dL RDW 12.2 (11.5-15.5) % Plt Count 306 (150-450) k/uL MPV 7.6 Neutrophils % 93 % Lymphocytes % 3 % Monocytes % 3 % Eosinophils % 1 % Basophils % 0 % Neutrophils # 23.8 H (1.3-7.7) k/uL Lymphocytes # 0.7 L (1.0-4.8) k/uL Monocytes # 0.8 (0-1.0) k/uL Eosinophils # 0.2 (0-0.7) k/uL Basophils # 0.1 (0-0.2) k/uL Sodium 139 (137-145) mmol/L Potassium 3.7 (3.5-5.1) mmol/L Chloride 110 H (98-107) mmol/L Carbon Dioxide 20 L (22-30) mmol/L Anion Gap 9 mmol/L BUN 15 (7-17) mg/dL Creatinine 0.56 (0.52-1.04) mg/dL Est GFR (CKD-EPI)AfAm >90 (>60 ml/min/1.73 sqM) Est GFR (CKD-EPI)NonAf >90 (>60 ml/min/1.73 sqM) Glucose 146 H (74-99) mg/dL Lactic Ac Sepsis Rflx Plasma Lactic Acid [place] (0.7-2.0) mmol/L Calcium 9.3 (8.4-10.2) mg/dL Total Bilirubin 0.5 (0.2-1.3) mg/dL AST 23 (14-36) U/L ALT 30 (4-34) U/L Alkaline Phosphatase 105 (38-126) U/L Total Protein 6.7 (6.3-8.2) g/dL Albumin 3.4 L (3.5-5.0) g/dL Lipase 67 (23-300) U/L Urine Color Yellow Urine Appearance Clear (Clear) Urine pH 5.5 (5.0-8.0) Ur Specific [place] 1.022 (1.001-1.035) Urine Protein Trace H (Negative) Urine Glucose (UA) Negative (Negative) Urine Ketones Negative (Negative) Urine Blood Negative (Negative) Urine Nitrite Negative (Negative) Urine Bilirubin Negative (Negative) Urine Urobilinogen <2.0 (<2.0) mg/dL Ur Leukocyte Esterase Negative (Negative) 07/05/20 07/05/20 Range/Units 19:52 20:34 WBC (3.8-10.6) k/uL RBC (3.80-5.40) m/uL Hgb (11.4-16.0) gm/dL Hct (34.0-46.0) % MCV (80.0-100.0) fL MCH (25.0-35.0) pg MCHC (31.0-37.0) g/dL RDW (11.5-15.5) % Plt Count (150-450) k/uL MPV Neutrophils % % Lymphocytes % % Monocytes % % Eosinophils % % Basophils % % Neutrophils # (1.3-7.7) k/uL Lymphocytes # (1.0-4.8) k/uL Monocytes # (0-1.0) k/uL Eosinophils # (0-0.7) k/uL Basophils # (0-0.2) k/uL Sodium (137-145) mmol/L Potassium (3.5-5.1) mmol/L Chloride (98-107) mmol/L Carbon Dioxide (22-30) mmol/L Anion Gap mmol/L BUN (7-17) mg/dL Creatinine (0.52-1.04) mg/dL Est GFR (CKD-EPI)AfAm (>60 ml/min/1.73 sqM) Est GFR (CKD-EPI)NonAf (>60 ml/min/1.73 sqM) Glucose (74-99) mg/dL Lactic Ac Sepsis Rflx Y Plasma Lactic Acid [place] 2.6 H* (0.7-2.0) mmol/L Calcium (8.4-10.2) mg/dL Total Bilirubin (0.2-1.3) mg/dL AST (14-36) U/L ALT (4-34) U/L Alkaline Phosphatase (38-126) U/L Total Protein (6.3-8.2) g/dL Albumin (3.5-5.0) g/dL Lipase (23-300) U/L Urine Color Urine Appearance (Clear) Urine pH (5.0-8.0) Ur Specific [place] (1.001-1.035) Urine Protein (Negative) Urine Glucose (UA) (Negative) Urine Ketones (Negative) Urine Blood (Negative) Urine Nitrite (Negative) Urine Bilirubin (Negative) Urine Urobilinogen (<2.0) mg/dL Ur Leukocyte Esterase (Negative) - Radiology Data CT abdomen and pelvis with contrast is obtained. Report reviewed in its entirety. Impression by Dr. Sharan Bray shows pneumoperitoneum consistent with perforated viscus. (Teena Brown) Critical Care Time Critical Care Time: Yes <Ivette Boland - Last Filed: 07/07/20 11:03> Critical Care Time: 32 minutes for immediate consultation with surgery regarding pneumoperitoneum. Patient informed of condition - need for NPO status, antibiotics and immediate surgery. (Ivette Boland) Disposition Decision to Admit Reason: Admit from EC Decision Date: 07/05/20 Decision Time: 21:41 <Teena Brown - Last Filed: 07/05/20 21:43> <Ivette Boland - Last Filed: 07/07/20 11:03> Clinical Impression: Perforated bowel Disposition: ADMITTED IP TO THIS [facility] Condition: Serious
[2020-07-05 20:05] LABS: Appearance,Urine Clear (Clear); Basophils # (A) 0.1 k/uL (0-0.2); Basophils % (A) 0 %; Bilirubin,Urine Negative (Negative); Blood,Urine Negative (Negative); Color,Urine Yellow; Eosinophils # (A) 0.2 k/uL (0-0.7); Eosinophils % (A) 1 %; Glucose,Urine (UA) Negative (Negative); HGB 13.7 gm/dL (11.4-16.0); Ketones,Urine Negative (Negative); Leukocyte Esterase,Urine Negative (Negative); Lymphocytes # (A) 0.7 k/uL (1.0-4.8); Lymphocytes % (A) 3 %; MCH 30.4 pg (25.0-35.0); MCHC 34.2 g/dL (31.0-37.0); MCV 88.9 fL (80.0-100.0); Mean Platelet Volume 7.6; Monocytes # (A) 0.8 k/uL (0-1.0); Monocytes % (A) 3 %; Neutrophils # (A) 23.8 k/uL (1.3-7.7); Neutrophils % (A) 93 %; Nitrite,Urine Negative (Negative); PH, Urine 5.5 (5.0-8.0); Platelet Count 306 k/uL (150-450); Protein,Urine Trace (Negative); RDW 12.2 % (11.5-15.5); Specific Gravity,Urine 1.022 (1.001-1.035); Urobilinogen,Urine <2.0 mg/dL (<2.0); WBC 25.6 k/uL (3.8-10.6)
[2020-07-05 20:16] LABS: ALT 30 U/L (4-34); AST 23 U/L (14-36); African American GFR (CKD) >90 (>60 ml/min/1.73 sqM); Albumin 3.4 g/dL (3.5-5.0); Alkaline Phosphatase 105 U/L (38-126); Anion Gap 9 mmol/L; Blood Urea Nitrogen 15 mg/dL (7-17); Calcium 9.3 mg/dL (8.4-10.2); Carbon Dioxide 20 mmol/L (22-30); Chloride 110 mmol/L (98-107); Glucose 146 mg/dL (74-99); Lipase 67 U/L (23-300); Non-African American GFR(CKD) >90 (>60 ml/min/1.73 sqM); Potassium 3.7 mmol/L (3.5-5.1); Sodium 139 mmol/L (137-145); Total Bilirubin 0.5 mg/dL (0.2-1.3); Total Protein 6.7 g/dL (6.3-8.2)
[2020-07-05] MEDS ORDERED: PIPERACILLIN-TAZOBACTAM 3.375 GM in SODIUM CHLORIDE 0.9% 100 ML IVPB STA (21:25)
--- NOTE | 2020-07-05 21:30 | CT ---
EXAMINATION TYPE: CT abdomen pelvis w con DATE OF EXAM: 07/05/2020 COMPARISON: 04/29/2018 HISTORY: Right sided abdominal pain. CT DLP: 1070.6 mGycm Automated exposure control for dose reduction was used. TECHNIQUE: Helical acquisition of images was performed from the lung bases through the pelvis. CONTRAST: Performed without Oral Contrast and with IV Contrast, patient injected with 100ml mL of Iso patti 300. FINDINGS: PERITONEAL CAVITY: There is a large volume of pneumoperitoneum, more within the abdomen than in the p carol, most pronounced in the right upper quadrant. There is no peritoneal fluid. BOWEL: The right upper quadrant pneumoperitoneum interfaces with the hepatic flexure very closely. Th ere are no definite acute focal bowel findings. Signmoid diverticulosis is redemonstrated. LUNG BASES: No significant abnormality is appreciated. LIVER/GB: No significant abnormality is appreciated. PANCREAS: No significant abnormality is seen. SPLEEN: No significant abnormality is seen. ADRENALS: No significant abnormality is seen. KIDNEYS: No significant abnormality is seen. ADENOPATHY: None visualized REPRODUCTIVE ORGANS: No significant abnormality is seen URINARY BLADDER: No significant abnormality is seen. PELVIC ADENOPATHY: None visualized. OSSEOUS STRUCTURES: No significant abnormality is seen. OTHER: No acute vascular findings. IMPRESSION: PNEUMOPERITONEUM CONSISTENT WITH PERFORATED VISCUS. Results discussed with the ordering provider just now, with read back.
[2020-07-05] MEDS ORDERED: NALOXONE 0.4 MG/ML 1 ML VIAL IV PRN (21:39)
--- NOTE | 2020-07-05 22:19 | P.GSHP ---
History of Present Illness H&P Date: 07/05/20 Chief Complaint: Pneumoperitoneum 59-year-old female came to the ER after being discharged earlier today. Patient was recently hospitalized with right facial cellulitis. Patient takes intermittent prednisone at home and took some recently. Patient has a history of rheumatoid arthritis and is currently on Enbrel. Patient responded well to oral antibiotics. Was just discharged earlier today for her cellulitis. Apparently prior to discharge was having some mild abdominal discomfort that increased after discharge. Pain began underneath her right rib travels across h er abdomen. Some radiation of the back. Increased pain with deep inspiration. Decreased appetite. No nausea or vomiting. No rectal bleeding or melena. No history of similar events. Patient was sent for CT of the pelvis which showed massive free air. More free air in the upper abdomen and despite diverticulosis sigmoid colon does not show any definite inflammatory changes. Some constipatio n appreciated. - Review of Systems Comment: The patient denies any acute changes in vision or hearing, no dysphagia or odynophagia, no chest pain or shortness of breath, no dysuria or hematuria, no headache, no runny nose, no rectal bleeding or melena, no unexplained weight loss Past Medical History Past Medical History: GERD/Reflux, Hypertension, Rheumatoid Arthritis (RA) Additional Past Medical History / Comment(s): DIVERTICULOSIS, elevated liver enzymes recently- monitoring History of Any Multi-Drug Resistant Organisms: None Reported Past Surgical History: Joint Replacement, Orthopedic Surgery Additional Past Surgical History / Comment(s): KNEE SURGERIES LEFT X 9, left knee replaced, D & C Past Anesthesia/Blood Transfusion Reactions: No Reported Reaction, Family History of Problems w/ Anesthesia Additional Past Anesthesia/Blood Transfusion Reaction / Comment(s): daughter passed out after wisdom teeth removed, fine w/anesthesia since Past Psychological History: No Psychological Hx Reported Smoking Status: Former smoker Past Alcohol Use History: Occasional Past Drug Use History: None Reported - Past Family History Mother Family Medical History: Diabetes Mellitus, Hypertension Father Family Medical History: Hypertension, Renal Disease Brother(s) Family Medical History: Diabetes Mellitus Sister(s) Family Medical History: Diabetes Mellitus Daughter(s) Family Medical History: No Reported History Son(s) Family Medical History: No Reported History Medications and Allergies Home Medications Medication Instructions Recorded Confirmed Type Pantoprazole [Protonix] 40 mg PO Q48H 12/13/15 07/05/20 History amLODIPine BESYLATE [Amlodipine 5 mg PO DAILY 12/13/15 07/05/20 History Besylate] Cholecalciferol [Vitamin D3 (25 25 mcg PO DAILY 07/02/20 07/05/20 History Mcg = 1000 Iu)] Etanercept [Enbrel Sureclick] 50 mg SQ FR 07/02/20 07/05/20 History Multivitamins, Thera [Multivitamin 1 tab PO DAILY 07/02/20 07/05/20 History (formulary)] predniSONE 10 mg PO DAILY PRN 07/02/20 07/05/20 History Calcium Carbonate [Tums] 500 mg PO ONCE PRN 07/05/20 07/05/20 History DAPTOmycin [Cubicin] 500 mg IV DAILY #10 bag 07/05/20 07/05/20 Rx Docusate [Colace] 100 mg PO ONETIME PRN 07/05/20 07/05/20 History Allergies Allergy/AdvReac Type Severity Reaction Status Date / Time hydrocodone [From Vicodin] Allergy Unknown sweating,blood Verified 07/05/20 21:49 pressure,n&v,dizziness oxycodone [From Percocet] Allergy Unknown sweating,bloodpressure Verified 07/05/20 21:49 drops,n/v, dizziness hydromorphone [From Dilaudid] Allergy sweating, Verified 07/05/20 21:49 blood pressure dropped, n/v,dizziness Surgical - Exam Vital Signs Temp Pulse Resp BP Pulse Ox 98 F 85 18 155/92 98 07/05/20 18:55 07/05/20 18:55 07/05/20 18:55 07/05/20 18:55 07/05/20 18:55 Physical exam: General: Well-developed, well-nourished HEENT: Normocephalic, sclerae nonicteric Abdomen: Mild distention, diffuse tenderness noted Extremities: No edema Neuro: Alert and oriented Results - Labs 07/05/20 19:52 07/05/20 19:52 Abnormal Lab Results - Last 24 Hours (Table) 07/05/20 07/05/20 07/05/20 Range/Units 19:52 19:52 19:52 WBC 25.6 H (3.8-10.6) k/uL Neutrophils # 23.8 H (1.3-7.7) k/uL Lymphocytes # 0.7 L (1.0-4.8) k/uL Chloride 110 H (98-107) mmol/L Carbon Dioxide 20 L (22-30) mmol/L Glucose 146 H (74-99) mg/dL Plasma Lactic Acid [place] (0.7-2.0) mmol/L Albumin 3.4 L (3.5-5.0) g/dL Urine Protein Trace H (Negative) 07/05/20 Range/Units 19:52 WBC (3.8-10.6) k/uL Neutrophils # (1.3-7.7) k/uL Lymphocytes # (1.0-4.8) k/uL Chloride (98-107) mmol/L Carbon Dioxide (22-30) mmol/L Glucose (74-99) mg/dL Plasma Lactic Acid [place] 2.6 H* (0.7-2.0) mmol/L Albumin (3.5-5.0) g/dL Urine Protein (Negative) Diabetes panel 07/05/20 Range/Units 19:52 Sodium 139 (137-145) mmol/L Potassium 3.7 (3.5-5.1) mmol/L Chloride 110 H (98-107) mmol/L Carbon Dioxide 20 L (22-30) mmol/L BUN 15 (7-17) mg/dL Creatinine 0.56 (0.52-1.04) mg/dL Glucose 146 H (74-99) mg/dL Calcium 9.3 (8.4-10.2) mg/dL AST 23 (14-36) U/L ALT 30 (4-34) U/L Alkaline Phosphatase 105 (38-126) U/L Total Protein 6.7 (6.3-8.2) g/dL Albumin 3.4 L (3.5-5.0) g/dL Calcium panel 07/05/20 Range/Units 19:52 Calcium 9.3 (8.4-10.2) mg/dL Albumin 3.4 L (3.5-5.0) g/dL Pituitary panel 07/05/20 Range/Units 19:52 Sodium 139 (137-145) mmol/L Potassium 3.7 (3.5-5.1) mmol/L Chloride 110 H (98-107) mmol/L Carbon Dioxide 20 L (22-30) mmol/L BUN 15 (7-17) mg/dL Creatinine 0.56 (0.52-1.04) mg/dL Glucose 146 H (74-99) mg/dL Calcium 9.3 (8.4-10.2) mg/dL Adrenal panel 07/05/20 Range/Units 19:52 Sodium 139 (137-145) mmol/L Potassium 3.7 (3.5-5.1) mmol/L Chloride 110 H (98-107) mmol/L Carbon Dioxide 20 L (22-30) mmol/L BUN 15 (7-17) mg/dL Creatinine 0.56 (0.52-1.04) mg/dL Glucose 146 H (74-99) mg/dL Calcium 9.3 (8.4-10.2) mg/dL Total Bilirubin 0.5 (0.2-1.3) mg/dL AST 23 (14-36) U/L ALT 30 (4-34) U/L Alkaline Phosphatase 105 (38-126) U/L Total Protein 6.7 (6.3-8.2) g/dL Albumin 3.4 L (3.5-5.0) g/dL Assessment and Plan (1) Perforated bowel Narrative/Plan: 59-year-old female with pneumoperitoneum. Suspect possible perforated peptic ulcer as the most likely etiology. Other etiologies including small bowel and colonic perforation discussed. We'll proceed with exploratory laparotomy at this time. Possible need for resection or ostomy reviewed. Risks of bleeding, infection, recurrent perforation, stricture, leak, abscess, fistula, possible need for further surgery, anesthesia related complications reviewed. She understands and wishes to proceed. Current Visit: Yes Status: Acute Code(s): K63.1 - PERFORATION OF INTESTINE (NONTRAUMATIC) SNOMED Code(s): 62032996
[2020-07-05] MEDS ORDERED: LACTATED RINGERS 1,000 ML IV ONE ×2 (22:55→23:47)
[2020-07-06] MEDS ORDERED: diphenhydrAMINE 50 MG/ML 1 ML VIAL IVP PRN (00:51)
--- NOTE | 2020-07-06 00:51 | P.OP ---
Date of Procedure: 07/06/20 Procedure(s) Performed: PREOPERATIVE DIAGNOSIS: Pneumoperitoneum, umbilical hernia POSTOPERATIVE DIAGNOSIS: Perforated sigmoid diverticulitis, umbilical hernia PROCEDURE: Exploratory laparotomy, Sigmoid colectomy with end colostomy SURGEON: Vi EBL: 50 mL ANESTHESIA: General COMPLICATIONS: None OPERATIVE PROCEDURE: Patient place in the operative table in the supine position. The patient was placed under general anesthesia. The abdomen was prepped and draped in usual sterile fashion. A vertical incision was made above the umbilicus. Dissection through the subcutaneous fat and fascia took place using electrocautery. A large volume of pneumoperitoneum was evacuated. The patient's stomach and duodenal sweep was able to be inspected and was free of abnormalities. The incision was then extended into the infraumbilical location and the pelvis was inspected. Upon doing so the patient was noted to have purulent fluid around the sigmoid colon. There was a loop of small bowel that was loosely adherent to a perforation site in the proximal sigmoid colon. There was fibrinous peel over the sigmoid colon and small bowel in that region. The fascial defect at the umbilicus from the umbilical hernia was encompassed into our fascial opening. The Bookwalter was utilized. The site of perforation was identified. I divided the sigmoid colon proximal to this using a linear 75 stapler. The mesentery was divided at that time using the LigaSure device. Beyond the inflamed segment I divided the distal sigmoid colon using another load of the linear 75 stapler. The sigmoid and descending colon colon was then mobilized further by dividing a portion of mesentery proximally and also dividing the white line of Toldt. Once I had enough length on the colon the abdomen was copiously irrigated with 3 L of saline. No further purulence was encountered at that time. A circular incision was made in the left midabdomen. Dissection through the subcutaneous fat and fascia took place using electrocautery. I bluntly entered the perineal cavity and this was further bluntly opened. The bowel was brought out through this defect in the left midabdomen. The midline fascia was then reapproximated using 3 separate double- stranded #1 PDS sutures. The umbilical hernia was repaired by reapproximating the fascia at the level of the hernia. The subcutaneous tissues were irrigated. The subcutaneous tissues were closed using 3-0 Vicryl sutures. The skin was then closed using pj. 2 separate sites were left open along the midline incision for Telfa wick placement. The ostomy was then addressed. A portion of the pericolonic fat was removed using the LigaSure device. The staple line was then removed using electrocautery. The ostomy was then matured in a salamatof fashion using interrupted 3-0 Vicryl sutures. An ostomy appliance was then applied. Sterile dressings were then applied to the midline incision. DISPOSITION: Stable to recovery room
[2020-07-06] MEDS: fentaNYL (PF) 50 MCG/ML 2 ML AMP IVP ONE ×2 (00:55→01:00)
[2020-07-06] MEDS: fentaNYL PCA 500 MCG/50 ML BAG IV PRN ×2 (01:57→15:31)
[2020-07-06] MEDS: D5-0.45% NACL WITH KCL 20MEQ/L 1,000 ML IV SCH ×3 (01:57→19:17)
[2020-07-06] MEDS: SODIUM CHLORIDE 0.9% 1,000 ML IV SCH ×2 (02:10→12:50)
[2020-07-06] MEDS: PIPERACILLIN-TAZOBACTAM 3.375 GM in SODIUM CHLORIDE 0.9% 100 ML IVPB SCH ×3 (02:13→15:32)
[2020-07-06] MEDS: ACETAMINOPHEN IV (For NPO) 1,000 MG in EMPTY BAG 1 BAG IVPB SCH ×3 (05:20→18:34)
[2020-07-06 06:28] LABS: Basophils % (A) 0 %; Eosinophils # (A) 0.1 k/uL (0-0.7); Eosinophils % (A) 0 %; HCT 37.9 % (34.0-46.0); HGB 12.7 gm/dL (11.4-16.0); Lymphocytes # (A) 1.2 k/uL (1.0-4.8); Lymphocytes % (A) 6 %; MCH 30.1 pg (25.0-35.0); MCHC 33.5 g/dL (31.0-37.0); Mean Platelet Volume 7.5; Monocytes % (A) 5 %; Neutrophils # (A) 18.8 k/uL (1.3-7.7); Neutrophils % (A) 89 %; Platelet Count 288 k/uL (150-450); RBC 4.22 m/uL (3.80-5.40); RDW 12.2 % (11.5-15.5); WBC 21.2 k/uL (3.8-10.6)
[2020-07-06] MEDS: HEPARIN SODIUM,PORCINE 5,000 UNIT/ML 1 ML VIAL SQ SCH ×2 (07:29→15:32)
[2020-07-06] MEDS ORDERED: metroNIDAZOLE-NS PMX 500 MG in SALINE 1 100ML.BAG IVPB SCH (08:00)
[2020-07-06] MEDS ORDERED: VANCOMYCIN IV PER PHARMACY 1 EACH MISC MISCELLANE PRN (08:06)
[2020-07-06 08:45] LABS: African American GFR (CKD) >90 (>60 ml/min/1.73 sqM); Blood Urea Nitrogen 10 mg/dL (7-17); Non-African American GFR(CKD) >90 (>60 ml/min/1.73 sqM)
[2020-07-06] MEDS ORDERED: VANCOMYCIN 1,250 MG in SODIUM CHLORIDE 0.9% 250 ML IVPB SCH (09:00)
[2020-07-06] MEDS ORDERED: FAMOTIDINE 20 MG/2 ML VIAL IV SCH (09:00)
[2020-07-06 09:30] LABS: African American GFR (CKD) 116.4 (60.0-200.0); Anion Gap 7.9 mmol/L (4.00-12.00); BUN/Creat Ratio 16.67 Ratio (12.00-20.00); Calcium 8.5 mg/dL (8.7-10.3); Carbon Dioxide 25.1 mmol/L (21.6-31.8); Non-African American GFR(CKD) 100.5 (60.0-200.0); Potassium 4.9 mmol/L (3.5-5.5)
--- NOTE | 2020-07-06 09:38 | CT ---
EXAMINATION TYPE: CT angio chest DATE OF EXAM: 07/06/2020 9:24 AM COMPARISON: CTA chest June 05, 2019 HISTORY: Hypoxia. Exploratory laparotomy last night. CT DLP: 352.4 mGycm Automated exposure control for dose reduction was used. CONTRAST: CTA scan of the thorax is performed with IV Contrast, patient injected with 100 mL of Isovue 370, pul monary embolism protocol. MIP images are created and reviewed. FINDINGS: LUNGS: Moderate underlying emphysematous change is redemonstrated. Tiny left pleural effusion. Depend ent atelectasis in the lower lungs. Additional [id number] scattered linear atelectasis in the b ases. No pneumothorax seen bilaterally. No suspicious nodules or masses. MEDIASTINUM: There is satisfactory enhancement of the pulmonary artery and its branches, there is no CT evidence for pulmonary embolism. Satisfactory enhancement of the thoracic aorta without aneurysm o r dissection There are no greater than 1 cm hilar or mediastinal lymph nodes. No cardiomegaly or pe ricardial effusion is seen. OTHER: Hyperdense gallbladder consistent with vicarious excretion of contrast. IMPRESSION: No CT evidence for acute pulmonary embolism. Moderate emphysematous change with atelectat ic changes in the lower lungs. No suspicious focal infiltrate.
--- NOTE | 2020-07-06 11:15 | P.PN ---
<Alexandria Harley - Last Filed: 07/06/20 11:09> Subjective Progress Note Date: 07/06/20 CHIEF COMPLAINT: Pneumoperitoneum HISTORY OF PRESENT ILLNESS: Patient is status post exploratory laparotomy, sigmoid colectomy and end colostomy for perforated sigmoid diverticulitis and umbilical hernia. Patient is tearful this morning. She does report her pain is controlled with the GEOMETRY TUTOR pump. She denies any nausea or vomiting. On room air patient's oxygen goes on 80%. On 3 L she is at 94%. Medicine did order a CT of the chest which was negative for PE. It showed moderate emphysematous change with atelectatic changes in the lower lungs. No suspicious focal infiltrate. Patient has been educated to use the incentive spirometer. She's afebrile. WBC 21.2 lactic 1.7 PHYSICAL EXAM: VITAL SIGNS: Reviewed. GENERAL: Well-developed in no acute distress. HEENT: No sclera icterus. Extraocular movements grossly intact. Moist buccal mucosa. Head is atraumatic, normocephalic. ABDOMEN: Soft. Mildly distended. Dressing two areas noted to have blood present. Ostomy on the left of abdomen with pink stoma NEUROLOGIC: Alert and oriented. Cranial nerves II through XII grossly intact. ASSESSMENT: 1. Perforated sigmoid diverticulitis and all umbilical hernia status post exploratory laparotomy, sigmoid colectomy and end colostomy, postop day #1 PLAN: -Start patient on clear liquids -Continue GEOMETRY TUTOR pump for pain control -Continue IV antibiotics -Continue IV fluids -Encouraged patient to use incentive spirometer -GI prophylaxis Pepcid and DVT prophylaxis subcu heparin Physician Refrigeration Mechanic note has been reviewed by physician. Signing provider agrees with the documented findings, assessment, and plan of care. Objective - Vital Signs Vital signs: Vital Signs Temp 98.3 F 07/06/20 06:41 Pulse 74 07/06/20 06:41 Resp 16 07/06/20 06:41 BP 137/81 07/06/20 06:41 Pulse Ox 94 L 07/06/20 07:21 Intake & Output 07/05/20 07/06/20 07/06/20 18:59 06:59 18:59 Intake Total 1600 Output Total 1670 Balance -70 Weight 81.647 kg 81.647 kg Intake: IV 1600 Oral 0 Output: Urine 1650 Uretheral (Harris) 700 Estimated Blood Loss 20 Other: Voiding Method Indwelling Catheter - Labs CBC & Chem 7: 07/06/20 05:55 07/06/20 05:55 Labs: Abnormal Lab Results - Last 24 Hours (Table) 07/05/20 07/05/20 07/05/20 Range/Units 19:52 19:52 19:52 WBC 25.6 H (3.8-10.6) k/uL Neutrophils # 23.8 H (1.3-7.7) k/uL Lymphocytes # 0.7 L (1.0-4.8) k/uL Chloride 110 H (98-107) mmol/L Carbon Dioxide 20 L (22-30) mmol/L Glucose 146 H (74-99) mg/dL Plasma Lactic Acid [place] (0.7-2.0) mmol/L Calcium (8.7-10.3) mg/dL Albumin 3.4 L (3.5-5.0) g/dL Urine Protein Trace H (Negative) 07/05/20 07/06/20 07/06/20 Range/Units 19:52 05:55 05:55 WBC 21.2 H (3.8-10.6) k/uL Neutrophils # 18.8 H (1.3-7.7) k/uL Lymphocytes # (1.0-4.8) k/uL Chloride (98-107) mmol/L Carbon Dioxide (22-30) mmol/L Glucose (74-99) mg/dL Plasma Lactic Acid [place] 2.6 H* 2.3 H* (0.7-2.0) mmol/L Calcium (8.7-10.3) mg/dL Albumin (3.5-5.0) g/dL Urine Protein (Negative) 07/06/20 Range/Units 05:55 WBC (3.8-10.6) k/uL Neutrophils # (1.3-7.7) k/uL Lymphocytes # (1.0-4.8) k/uL Chloride (98-107) mmol/L Carbon Dioxide (22-30) mmol/L Glucose 191 H (74-99) mg/dL Plasma Lactic Acid [place] (0.7-2.0) mmol/L Calcium 8.5 L (8.7-10.3) mg/dL Albumin (3.5-5.0) g/dL Urine Protein (Negative) <Milind Lebron - Last Filed: 07/06/20 12:32> Subjective As above. Intraoperative findings discussed in detail with the patient. Patient doing better as far as her pain goes. It is less than it was preoperatively. White blood cell count improved. Vital signs noted. Lactic acid has normalized. Continue broad-spectrum antibiotics. Await infectious disease evaluation. Consult to ostomy nurse. Will add Toradol for pain control. Gradually increase activity. Keep Harris catheter today. Begin clear liquids. Objective - Vital Signs Vital signs: Vital Signs Temp 98.3 F 07/06/20 06:41 Pulse 74 07/06/20 06:41 Resp 16 07/06/20 06:41 BP 137/81 07/06/20 06:41 Pulse Ox 94 L 07/06/20 07:21 Intake & Output 07/05/20 07/06/20 07/06/20 18:59 06:59 18:59 Intake Total 1600 Output Total 1670 Balance -70 Weight 81.647 kg 81.647 kg Intake: IV 1600 Oral 0 Output: Urine 1650 Uretheral (Harris) 700 Estimated Blood Loss 20 Other: Voiding Method Indwelling Catheter - Labs CBC & Chem 7: 07/06/20 05:55 07/06/20 05:55 Labs: Abnormal Lab Results - Last 24 Hours (Table) 07/05/20 07/05/20 07/05/20 Range/Units 19:52 19:52 19:52 WBC 25.6 H (3.8-10.6) k/uL Neutrophils # 23.8 H (1.3-7.7) k/uL Lymphocytes # 0.7 L (1.0-4.8) k/uL Chloride 110 H (98-107) mmol/L Carbon Dioxide 20 L (22-30) mmol/L Glucose 146 H (74-99) mg/dL Plasma Lactic Acid [place] (0.7-2.0) mmol/L Calcium (8.7-10.3) mg/dL Albumin 3.4 L (3.5-5.0) g/dL Urine Protein Trace H (Negative) 07/05/20 07/06/20 07/06/20 Range/Units 19:52 05:55 05:55 WBC 21.2 H (3.8-10.6) k/uL Neutrophils # 18.8 H (1.3-7.7) k/uL Lymphocytes # (1.0-4.8) k/uL Chloride (98-107) mmol/L Carbon Dioxide (22-30) mmol/L Glucose (74-99) mg/dL Plasma Lactic Acid [place] 2.6 H* 2.3 H* (0.7-2.0) mmol/L Calcium (8.7-10.3) mg/dL Albumin (3.5-5.0) g/dL Urine Protein (Negative) 07/06/20 Range/Units 05:55 WBC (3.8-10.6) k/uL Neutrophils # (1.3-7.7) k/uL Lymphocytes # (1.0-4.8) k/uL Chloride (98-107) mmol/L Carbon Dioxide (22-30) mmol/L Glucose 191 H (74-99) mg/dL Plasma Lactic Acid [place] (0.7-2.0) mmol/L Calcium 8.5 L (8.7-10.3) mg/dL Albumin (3.5-5.0) g/dL Urine Protein (Negative) Assessment and Plan (1) Perforated bowel Current Visit: Yes Status: Acute Code(s): K63.1 - PERFORATION OF INTESTINE (NONTRAUMATIC) SNOMED Code(s): 33747470
--- NOTE | 2020-07-06 12:31 | P.CONS ---
History of Present Illness - Reason for Consult Consult date: 07/06/20 - History of Present Illness HISTORY OF PRESENT ILLNESS This is a 59-year-old female patient of Dr. Cisneros with past medical history significant for hypertension and hypertensive cardiovascular disease with left ventricular hypertrophy, osteoarthritis, gastroesophageal reflux disease, diverticulosis, rheumatoid arthritis diagnosed in 2005 on Enbrel and followed by Dr. Goldman. Patient was hospitalized July 03 to July 05 for sepsis related to facial cellulitis and an immunocompromised host. Patient was treated with vancomycin with improvement and was discharged home on da ptomycin to continue for 10 days at [facility]. Patient was followed by Dr. Lewis. Starting the night before, patient was complaining of some generalized discomfort in the right side of her abdomen which was thought to be related to constipation. Patient was planning to picker and sorter load and unload stool softeners but was discharged home as her abdomen was completely benign and examination. However, patient states that her abdominal pain worsened on the right side with radiation to the back. It was worse with deep inspiration. Patient came back to the emergency center for evaluation. CAT scan of the pelvis showed massive free air, more free air in the upper abdomen, diverticulosis sigmoid colon did not show definite inflammatory changes. Some constipation was appreciated. Patient was admitted to Dr. Lebron and went to [facility] for perforated sigmoid diverticulitis, umbilical hernia status post exploratory laparotomy, sigmoid colectomy and end colostomy. Patient is seen on the [facility] floor. Her pain is currently controlled. VOCATIONAL HORTICULTURE INSTRUCTOR is in place. She denies having any chest pain. Noted that she is requiring oxygen at 3 L and concern for PE. CTA of the chest ordered which was negative for acute pulmonary embolism. Moderate emphysematous change with atelectatic changes in the lower lungs. No suspicious focal infiltrate. Noted that patient's facial cellulitis is significantly improved since last seen. REVIEW OF SYSTEMS Constitutional: No fever, no chills, no night sweats. No weight change. No weakness, fatigue or lethargy. No daytime sleepiness. EENT: No headache. No blurred vision or double vision, no loss of vision. No loss of Hearing, no ringing in the ears, no dizziness. No nasal drainage or congestion. No epistaxis. No sore throat. Reports facial pain. Lungs: No shortness of breath, cough, no sputum production. No wheezing. Cardiovascular: No chest pain, no lower extremity edema. No palpitations. No paroxysmal nocturnal dyspnea. No orthopnea. No lightheadedness or dizziness. No syncopal episodes. Abdominal: Reported abdominal pain. No nausea, vomiting. No diarrhea. No constipation. No bloody or tarry stools.. No loss of appetite. Genitourinary: No dysuria, increased frequency, urgency. No urinary retention. Musculoskeletal: No myalgias. No muscle weakness, no gait dysfunction, no frequent falls. No back pain. No neck pain. Integumentary: Mild swelling to the right jaw and chin. No rash or pruritus. No unusual bruising. No change in hair or nails. Neurologic: No aphasia. No facial droop. No change in mentation. No head injury. No headache. No paralysis. No paresthesia. Psychiatric: No depression. No anxiety. No mood swings. Endocrine: No abnormal blood sugars. No weight change. No excessive sweating or thirst. No cold intolerance. SOCIAL HISTORY Patient was a smoker of one pack per day for 30 years and quit in July 2011. She drinks alcohol rarely. No illicit drug use or marijuana use. She works for [employer]. She is and lives at home with her . She does not have CPAP, nebulizer, oxygen. FAMILY HISTORY Mother is alive at age 78 with history of diabetes and hypertension. Father at age 77 from renal failure with history of hypertension. Patient has 1 sister and 1 brother and both have diabetes. Patient has 1 daughter and 1 son with no major medical problems. PHYSICAL EXAMINATION Gen: This is a 59-year-old female. She is resting in bed and appears to be comfortable. No respiratory distress is noted. HEENT: Head is atraumatic, normocephalic. Pupils equal, round. Sclerae is anicteric. Patient has mild edema to the right lower lip chin and jaw. Erythema is significantly improved. No drainage. NECK: Supple. No JVD. No lymphadenopathy. No thyromegaly. No stridor noted LUNGS: Clear to auscultation. No wheezes or rhonchi. No intercostal retractions. HEART: Regular rate and rhythm. No murmur. ABDOMEN: Mild distention. Dressing on midline incision has 2 small areas of dried blood. Ostomy on the left of the abdomen with pink stoma. EXTREMITIES: No pedal edema. No calf tenderness. NEUROLOGICAL: Patient is awake, alert and oriented x3. Cranial nerves 2 through 12 are grossly intact. ASSESSMENT AND PLAN 1. Sepsis and pneumoperitoneum secondary to perforated diverticulitis, status post exploratory laparotomy, sigmoid colectomy and end colostomy, postop day #1. Patient is on VOCATIONAL HORTICULTURE INSTRUCTOR for pain control, Tylenol IV. Continue Zosyn. Zofran for nausea and vomiting. Consult with infectious disease. Clear liquids to start for lunch. 2. Recent hospitalization for sepsis secondary to facial cellulitis in an immunocompromised host. Enbrel and prednisone on hold. Patient will be started on vancomycin, consult with infectious disease. 2. Hypertension, hypertensive cardiovascular disease. Continue Norvasc 5 mg daily. 3. Rheumatoid arthritis under the care of Dr. Goldman. Enbrel and prednisone on hold. 4. Gastroesophageal reflux disease. Continue Protonix 40 mg daily. 5. Generalized osteoarthritis, stable. 6. DVT prophylaxis. Heparin subcu. Patient will be admitted to the hospital for a minimum of 2 night stay. DISCHARGE PLAN Home. Impression and plan of care have been directed as dictated by the signing physician. Renita Ornelas nurse practitioner acting as scribe for signing physician. Past Medical History Past Medical History: GERD/Reflux, Hypertension, Rheumatoid Arthritis (RA) Additional Past Medical History / Comment(s): DIVERTICULOSIS, elevated liver enzymes recently-drAntonio monitoring History of Any Multi-Drug Resistant Organisms: None Reported Past Surgical History: Joint Replacement, Orthopedic Surgery Additional Past Surgical History / Comment(s): KNEE SURGERIES LEFT X 9, left knee replaced, D & C, hysterectomy Past Anesthesia/Blood Transfusion Reactions: No Reported Reaction, Family History of Problems w/ Anesthesia Additional Past Anesthesia/Blood Transfusion Reaction / Comm: daughter passed out after wisdom teeth removed, fine w/anesthesia since Past Psychological History: No Psychological Hx Reported Smoking Status: Former smoker Past Alcohol Use History: Occasional Additional Past Alcohol Use History / Comment(s): smoked 30 years 1ppd, quit 2011 Past Drug Use History: None Reported - Past Family History Mother Family Medical History: Diabetes Mellitus, Hypertension Father Family Medical History: Hypertension, Renal Disease Brother(s) Family Medical History: Diabetes Mellitus Sister(s) Family Medical History: Diabetes Mellitus Daughter(s) Family Medical History: No Reported History Son(s) Family Medical History: No Reported History Medications and Allergies Home Medications Medication Instructions Recorded Confirmed Type Pantoprazole [Protonix] 40 mg PO Q48H 12/13/15 07/05/20 History amLODIPine BESYLATE [Amlodipine 5 mg PO DAILY 12/13/15 07/05/20 History Besylate] Cholecalciferol [Vitamin D3 (25 25 mcg PO DAILY 07/02/20 07/05/20 History Mcg = 1000 Iu)] Etanercept [Enbrel Sureclick] 50 mg SQ FR 07/02/20 07/05/20 History Multivitamins, Thera [Multivitamin 1 tab PO DAILY 07/02/20 07/05/20 History (formulary)] predniSONE 10 mg PO DAILY PRN 07/02/20 07/05/20 History Calcium Carbonate [Tums] 500 mg PO ONCE PRN 07/05/20 07/05/20 History DAPTOmycin [Cubicin] 500 mg IV DAILY #10 bag 07/05/20 07/05/20 Rx Docusate [Colace] 100 mg PO ONETIME PRN 07/05/20 07/05/20 History Allergies Allergy/AdvReac Type Severity Reaction Status Date / Time hydrocodone [From Vicodin] Allergy Unknown sweating,blood Verified 07/05/20 21:49 pressure,n&v,dizziness oxycodone [From Percocet] Allergy Unknown sweating,bloodpressure Verified 07/05/20 21:49 drops,n/v, dizziness hydromorphone [From Dilaudid] Allergy sweating, Verified 07/05/20 21:49 blood pressure dropped, n/v,dizziness Physical Exam Vitals: Vital Signs Temp Pulse Pulse Pulse Resp BP BP 07/06/20 07:21 07/06/20 06:41 98.3 F 74 16 137/81 07/06/20 03:37 69 139/84 07/06/20 03:22 69 147/90 07/06/20 03:07 65 155/88 07/06/20 02:42 71 154/93 07/06/20 02:36 70 153/89 07/06/20 02:21 72 153/89 07/06/20 02:07 74 159/93 07/06/20 01:30 98 F 78 20 159/91 07/06/20 01:15 66 16 133/76 07/06/20 01:02 67 16 154/83 07/06/20 00:45 63 16 144/82 07/06/20 00:37 97.0 F L 76 16 156/88 07/05/20 22:04 98.6 F 101 H 20 186/104 07/05/20 21:00 98 18 185/104 07/05/20 18:55 98 F 85 18 155/92 Pulse Ox 07/06/20 07:21 94 L 07/06/20 06:41 88 L 07/06/20 03:37 92 L 07/06/20 03:22 92 L 07/06/20 03:07 07/06/20 02:42 07/06/20 02:36 91 L 07/06/20 02:21 89 L 07/06/20 02:07 90 L 07/06/20 01:30 93 L 07/06/20 01:15 95 07/06/20 01:02 97 07/06/20 00:45 97 07/06/20 00:37 98 07/05/20 22:04 97 07/05/20 21:00 97 07/05/20 18:55 98 Intake and Output 07/05/20 07/06/20 07/06/20 22:59 06:59 14:59 Intake Total 1000 600 Output Total 1670 Balance 1000 -1070 Intake: IV 1000 600 Oral 0 Output: Urine 1650 Uretheral (Harris) 700 Estimated Blood Loss 20 Other: Voiding Method Indwelling Catheter Weight 81.647 kg Results CBC & Chem 7: 07/06/20 05:55 07/06/20 05:55 Labs: Abnormal Lab Results - Last 24 Hours (Table) 07/05/20 07/05/20 07/05/20 Range/Units 19:52 19:52 19:52 WBC 25.6 H (3.8-10.6) k/uL Neutrophils # 23.8 H (1.3-7.7) k/uL Lymphocytes # 0.7 L (1.0-4.8) k/uL Chloride 110 H (98-107) mmol/L Carbon Dioxide 20 L (22-30) mmol/L Glucose 146 H (74-99) mg/dL Plasma Lactic Acid [place] (0.7-2.0) mmol/L Albumin 3.4 L (3.5-5.0) g/dL Urine Protein Trace H (Negative) 07/05/20 07/06/20 07/06/20 Range/Units 19:52 05:55 05:55 WBC 21.2 H (3.8-10.6) k/uL Neutrophils # 18.8 H (1.3-7.7) k/uL Lymphocytes # (1.0-4.8) k/uL Chloride (98-107) mmol/L Carbon Dioxide (22-30) mmol/L Glucose (74-99) mg/dL Plasma Lactic Acid [place] 2.6 H* 2.3 H* (0.7-2.0) mmol/L Albumin (3.5-5.0) g/dL Urine Protein (Negative)
[2020-07-06] MEDS: amLODIPine 5 MG TAB PO SCH (12:49)
--- NOTE | 2020-07-06 14:02 | P.CONS ---
History of Present Illness - Reason for Consult Consult date: 07/06/20 - History of Present Illness HISTORY OF PRESENT ILLNESS HISTORY OF PRESENT ILLNESS This is a 59-year-old female patient of Dr. Cisneros with past medical history significant for hypertension and hypertensive cardiovascular disease with left ventricular hypertrophy, osteoarthritis, gastroesophageal reflux disease, diverticulosis, rheumatoid arthritis diagnosed in 2005 on Enbrel and followed by Dr. Goldman. Patient was hospitalized July 03 to July 05 for sepsis related to facial cellulitis and an immunocompromised host. Patient was treated with vancomycin with improvement and was discharged home on daptomycin to continue for 10 days at [facility]. Tired to discharge, patient co mplained of mild generalized discomfort in the right side of her abdomen which was thought to be related to constipation. Patient states that her abdominal pain worsened on the right side with radiation to the back. It was worse with deep inspiration. Patient came back to the emergency center for evaluation. CAT scan of the pelvis showed massive free air, more free air in the upper abdomen, diverticulosis sigmoid colon did not show definite inflammatory changes. Some constipation was appreciated. Patient was admitted to Dr. Lebron and went to [facility] for perforated sigmoid diverticulitis, umbilical hernia status post exploratory laparotomy, sigmoid colectomy and end colostomy. [facility] Her pain is currently controlled. 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 She denies having any chest pain. CTA of the chest ordered which was negative for acute pulmonary embolism. Moderate emphysematous change with atelectatic changes in the lower lungs. No suspicious focal infiltrate. Noted that patient's facial cellulitis is significantly improved since last seen. REVIEW OF SYSTEMS Constitutional: No fever, no chills, no night sweats. No weight change. No weakness, fatigue or lethargy. No daytime sleepiness. EENT: No headache. No blurred vision or double vision, no loss of vision. No loss of Hearing, no ringing in the ears, no dizziness. No nasal drainage or congestion. No epistaxis. No sore throat. Reports facial pain. Lungs: No shortness of breath, cough, no sputum production. No wheezing. Cardiovascular: No chest pain, no lower extremity edema. No palpitations. No paroxysmal nocturnal dyspnea. No orthopnea. No lightheadedness or dizziness. No syncopal episodes. Abdominal: Reported abdominal pain. No nausea, vomiting. No diarrhea. No constipation. No bloody or tarry stools.. No loss of appetite. Genitourinary: No dysuria, increased frequency, urgency. No urinary retention. Musculoskeletal: No myalgias. No muscle weakness, no gait dysfunction, no frequent falls. No back pain. No neck pain. Integumentary: Mild swelling to the right jaw and chin. No rash or pruritus. No unusual bruising. No change in hair or nails. Neurologic: No aphasia. No facial droop. No change in mentation. No head injury. No headache. No paralysis. No paresthesia. Psychiatric: No depression. No anxiety. No mood swings. Endocrine: No abnormal blood sugars. No weight change. No excessive sweating or thirst. No cold intolerance. PHYSICAL EXAMINATION Gen: This is a 59-year-old female. She is resting in bed and appears to be comfortable. No respiratory distress is noted. HEENT: Head is atraumatic, normocephalic. Pupils equal, round. Sclerae is anicteric. Patient has mild edema to the right lower lip chin and jaw. Erythema is significantly improved. No drainage. NECK: Supple. No JVD. No lymphadenopathy. No thyromegaly. No stridor noted LUNGS: Clear to auscultation. No wheezes or rhonchi. No intercostal retractions. HEART: Regular rate and rhythm. No murmur. ABDOMEN: Mild distention. Dressing on midline incision has 2 small areas of dried blood. Ostomy on the left of the abdomen with pink stoma. EXTREMITIES: No pedal edema. No calf tenderness. NEUROLOGICAL: Patient is awake, alert and oriented x3. Cranial nerves 2 through 12 are grossly intact. ASSESSMENT Sepsis and pneumoperitoneum secondary to perforated diverticulitis status post exploratory laparotomy, sigmoid colectomy and end colostomy Recent hospitalization for sepsis secondary to facial cellulitis Rheumatoid arthritis PLAN Continue Zosyn Discontinue Flagyl Change vancomycin to daptomycin Monitor blood cultures Continue supportive care Further recommendations based upon patient's clinical course Thank you kindly for this consultation The above dictated assessment and findings were discussed with Dr. Lewis. The impression and plan of care have been directed as dictated. Renita Ornelas nurse practitioner acting as scribe for Dr. Lewis. Past Medical History Past Medical History: GERD/Reflux, Hypertension, Rheumatoid Arthritis (RA) Additional Past Medical History / Comment(s): DIVERTICULOSIS, elevated liver enzymes recently- monitoring History of Any Multi-Drug Resistant Organisms: None Reported Past Surgical History: Joint Replacement, Orthopedic Surgery Additional Past Surgical History / Comment(s): KNEE SURGERIES LEFT X 9, left knee replaced, D & C, hysterectomy Past Anesthesia/Blood Transfusion Reactions: No Reported Reaction, Family History of Problems w/ Anesthesia Additional Past Anesthesia/Blood Transfusion Reaction / Comm: daughter passed out after wisdom teeth removed, fine w/anesthesia since Past Psychological History: No Psychological Hx Reported Smoking Status: Former smoker Past Alcohol Use History: Occasional Additional Past Alcohol Use History / Comment(s): smoked 30 years 1ppd, quit 2011 Past Drug Use History: None Reported - Past Family History Mother Family Medical History: Diabetes Mellitus, Hypertension Father Family Medical History: Hypertension, Renal Disease Brother(s) Family Medical History: Diabetes Mellitus Sister(s) Family Medical History: Diabetes Mellitus Daughter(s) Family Medical History: No Reported History Son(s) Family Medical History: No Reported History Medications and Allergies Home Medications Medication Instructions Recorded Confirmed Type Pantoprazole [Protonix] 40 mg PO Q48H 12/13/15 07/05/20 History amLODIPine BESYLATE [Amlodipine 5 mg PO DAILY 12/13/15 07/05/20 History Besylate] Cholecalciferol [Vitamin D3 (25 25 mcg PO DAILY 07/02/20 07/05/20 History Mcg = 1000 Iu)] Etanercept [Enbrel Sureclick] 50 mg SQ FR 07/02/20 07/05/20 History Multivitamins, Thera [Multivitamin 1 tab PO DAILY 07/02/20 07/05/20 History (formulary)] predniSONE 10 mg PO DAILY PRN 07/02/20 07/05/20 History Calcium Carbonate [Tums] 500 mg PO ONCE PRN 07/05/20 07/05/20 History DAPTOmycin [Cubicin] 500 mg IV DAILY #10 bag 07/05/20 07/05/20 Rx Docusate [Colace] 100 mg PO ONETIME PRN 07/05/20 07/05/20 History Allergies Allergy/AdvReac Type Severity Reaction Status Date / Time hydrocodone [From Vicodin] Allergy Unknown sweating,blood Verified 07/05/20 21:49 pressure,n&v,dizziness oxycodone [From Percocet] Allergy Unknown sweating,bloodpressure Verified 07/05/20 21:49 drops,n/v, dizziness hydromorphone [From Dilaudid] Allergy sweating, Verified 07/05/20 21:49 blood pressure dropped, n/v,dizziness Physical Exam Vitals: Vital Signs Temp Pulse Pulse Pulse Resp BP BP 07/06/20 07:21 07/06/20 06:41 98.3 F 74 16 137/81 07/06/20 03:37 69 139/84 07/06/20 03:22 69 147/90 07/06/20 03:07 65 155/88 07/06/20 02:42 71 154/93 07/06/20 02:36 70 153/89 07/06/20 02:21 72 153/89 07/06/20 02:07 74 159/93 07/06/20 01:30 98 F 78 20 159/91 07/06/20 01:15 66 16 133/76 07/06/20 01:02 67 16 154/83 07/06/20 00:45 63 16 144/82 07/06/20 00:37 97.0 F L 76 16 156/88 07/05/20 22:04 98.6 F 101 H 20 186/104 07/05/20 21:00 98 18 185/104 07/05/20 18:55 98 F 85 18 155/92 Pulse Ox 07/06/20 07:21 94 L 07/06/20 06:41 88 L 07/06/20 03:37 92 L 07/06/20 03:22 92 L 07/06/20 03:07 07/06/20 02:42 07/06/20 02:36 91 L 07/06/20 02:21 89 L 07/06/20 02:07 90 L 07/06/20 01:30 93 L 07/06/20 01:15 95 07/06/20 01:02 97 07/06/20 00:45 97 07/06/20 00:37 98 07/05/20 22:04 97 07/05/20 21:00 97 07/05/20 18:55 98 Intake and Output 07/05/20 07/06/20 07/06/20 22:59 06:59 14:59 Intake Total 1000 600 Output Total 1670 Balance 1000 -1070 Intake: IV 1000 600 Oral 0 Output: Urine 1650 Uretheral (Harris) 700 Estimated Blood Loss 20 Other: Voiding Method Indwelling Catheter Indwelling Catheter Weight 81.647 kg Results CBC & Chem 7: 07/06/20 05:55 07/06/20 05:55 Labs: Abnormal Lab Results - Last 24 Hours (Table) 07/05/20 07/05/20 07/05/20 Range/Units 19:52 19:52 19:52 WBC 25.6 H (3.8-10.6) k/uL Neutrophils # 23.8 H (1.3-7.7) k/uL Lymphocytes # 0.7 L (1.0-4.8) k/uL Chloride 110 H (98-107) mmol/L Carbon Dioxide 20 L (22-30) mmol/L Glucose 146 H (74-99) mg/dL Plasma Lactic Acid [place] (0.7-2.0) mmol/L Calcium (8.7-10.3) mg/dL Albumin 3.4 L (3.5-5.0) g/dL Urine Protein Trace H (Negative) 07/05/20 07/06/20 07/06/20 Range/Units 19:52 05:55 05:55 WBC 21.2 H (3.8-10.6) k/uL Neutrophils # 18.8 H (1.3-7.7) k/uL Lymphocytes # (1.0-4.8) k/uL Chloride (98-107) mmol/L Carbon Dioxide (22-30) mmol/L Glucose (74-99) mg/dL Plasma Lactic Acid [place] 2.6 H* 2.3 H* (0.7-2.0) mmol/L Calcium (8.7-10.3) mg/dL Albumin (3.5-5.0) g/dL Urine Protein (Negative) 07/06/20 Range/Units 05:55 WBC (3.8-10.6) k/uL Neutrophils # (1.3-7.7) k/uL Lymphocytes # (1.0-4.8) k/uL Chloride (98-107) mmol/L Carbon Dioxide (22-30) mmol/L Glucose 191 H (74-99) mg/dL Plasma Lactic Acid [place] (0.7-2.0) mmol/L Calcium 8.5 L (8.7-10.3) mg/dL Albumin (3.5-5.0) g/dL Urine Protein (Negative)
[2020-07-06] MEDS: DAPTOmycin 500 MG in SODIUM CHLORIDE 0.9% 50 ML IVPB SCH (15:32)
[2020-07-06] MEDS: KETOROLAC 15 MG/ML 1 ML VIAL IVP SCH (18:30)
[2020-07-06] MEDS: ONDANSETRON 4 MG/2 ML VIAL IVP PRN (18:31)
[2020-07-07] MEDS: ACETAMINOPHEN IV (For NPO) 1,000 MG in EMPTY BAG 1 BAG IVPB SCH (00:09)
[2020-07-07] MEDS: HEPARIN SODIUM,PORCINE 5,000 UNIT/ML 1 ML VIAL SQ SCH ×4 (00:09→23:32)
[2020-07-07] MEDS: PIPERACILLIN-TAZOBACTAM 3.375 GM in SODIUM CHLORIDE 0.9% 100 ML IVPB SCH ×4 (00:10→23:26)
[2020-07-07] MEDS: KETOROLAC 15 MG/ML 1 ML VIAL IVP SCH ×5 (00:10→23:29)
[2020-07-07] MEDS: D5-0.45% NACL WITH KCL 20MEQ/L 1,000 ML IV SCH ×4 (00:11→23:36)
[2020-07-07] MEDS: SODIUM CHLORIDE 0.9% 1,000 ML IV SCH ×2 (00:29→16:04)
[2020-07-07 06:47] LABS: Basophils % (A) 0 %; Eosinophils # (A) 0.1 k/uL (0-0.7); Eosinophils % (A) 1 %; HCT 39.1 % (34.0-46.0); Lymphocytes # (A) 2.8 k/uL (1.0-4.8); Lymphocytes % (A) 22 %; MCH 30.3 pg (25.0-35.0); MCHC 33.3 g/dL (31.0-37.0); Mean Platelet Volume 7.5; Monocytes # (A) 0.8 k/uL (0-1.0); Monocytes % (A) 6 %; Neutrophils # (A) 9.4 k/uL (1.3-7.7); Neutrophils % (A) 71 %; Platelet Count 294 k/uL (150-450); RBC 4.29 m/uL (3.80-5.40); RDW 12.2 % (11.5-15.5); WBC 13.2 k/uL (3.8-10.6)
[2020-07-07] MEDS: amLODIPine 5 MG TAB PO SCH (07:27)
[2020-07-07] MEDS: PANTOPRAZOLE 40 MG TABLET PO SCH (07:27)
[2020-07-07] MEDS: fentaNYL PCA 500 MCG/50 ML BAG IV PRN ×2 (07:56→22:13)
[2020-07-07] MEDS ORDERED: VANCOMYCIN TROUGH DUE 1 EACH MISC MISCELLANE ONE (08:00)
[2020-07-07] MEDS ORDERED: PANTOPRAZOLE 40 MG/10 ML VIAL IVP SCH (09:00)
[2020-07-07 09:38] LABS: African American GFR (CKD) 116.4 (60.0-200.0); Anion Gap 6.7 mmol/L (4.00-12.00); Calcium 8.4 mg/dL (8.7-10.3); Carbon Dioxide 27.3 mmol/L (21.6-31.8); Non-African American GFR(CKD) 100.5 (60.0-200.0); Potassium 4.1 mmol/L (3.5-5.5)
--- NOTE | 2020-07-07 10:45 | P.PN ---
Progress Note - Text Progress Note Date: 07/07/20 Patient is doing fairly well. She's had some gas in her colostomy bag. On exam her vital signs are stable. Abdomen soft. Incisions clean and intact. Status post Trang procedure for perforated diverticula is. Patient will receive supportive care.
[2020-07-07] MEDS: DAPTOmycin 500 MG in SODIUM CHLORIDE 0.9% 50 ML IVPB SCH (16:05)
[2020-07-07] MEDS: MAG HYDROX/AL HYDROX/SIMETH 30 ML CUP PO SCH ×4 (16:10→22:19)
[2020-07-07] MEDS ORDERED: hydrALAZINE HCL 20 MG/ML 1 ML VIAL IVP PRN (17:35)
--- NOTE | 2020-07-07 17:36 | P.PN ---
Subjective Progress Note Date: 07/07/20 HISTORY OF PRESENT ILLNESS HISTORY OF PRESENT ILLNESS This is a 59-year-old female patient of Dr. Cisneros with past medical history significant for hypertension and hypertensive cardiovascular disease with left ventricular hypertrophy, osteoarthritis, gastroesophageal reflux disease, diverticulosis, rheumatoid arthritis diagnosed in 2005 on Enbrel and followed by Dr. Goldman. Patient was hospitalized July 03 to July 05 for sepsis related to facial cellulitis and an immunocompromised host. Patient was treated with vancomycin with improvement and was discharged home on daptomycin to continue for 10 days at [facility]. Tired to discharge, patient complained of mild generalized discomfort in the right side of her abdomen which was thought to be related to constipation. Patient states that her abdominal pain worsened on the right side with radiation to the back. It was worse with deep inspiration. Patient came back to the emergency center for evaluation. CAT scan of the pelvis showed massive free air, more free air in the upper abdomen, diverticulosis sigmoid colon did not show definite inflammatory changes. Some constipation was appreciated. Patient was admitted to Dr. Lebron and went to [facility] for perforated sigmoid diverticulitis, umbilical hernia status post exploratory laparotomy, sigmoid colectomy and end colostomy. Patient is seen on the [facility] floor. Her pain is currently controlled. STEVEDORE HOLD is in place. She denies having any chest pain. CTA of the chest ordered which was negative for acute pulmonary embolism. Moderate emphysematous change with atelectatic changes in the lower lungs. No suspicious focal infiltrate. Noted that patient's facial cellulitis is significantly improved since last seen. 07/07: Patient is on clear liquid diet today, however some nausea secondary to abdominal distention, she is bloated mainly with gas, has flat to's or gas in the colostomy bag, however there is still no stools, this is postop day #1 Maalox started, early ambulation, O2 at 2 L nasal cannula, for hypoxemia 97 at 4 L this cannula, vitals are 140-168, systolic, heart rate is under control, has amlodipine which was started today, and start hydralazine 10 every 6 when necessary for blood pressure over 160 REVIEW OF SYSTEMS Constitutional: No fever, no chills, no night sweats. No weight change. No weakness, fatigue or lethargy. No daytime sleepiness. EENT: No headache. No blurred vision or double vision, no loss of vision. No loss of Hearing, no ringing in the ears, no dizziness. No nasal drainage or congestion. No epistaxis. No sore throat. Reports facial pain. Lungs: No shortness of breath, cough, no sputum production. No wheezing. Cardiovascular: No chest pain, no lower extremity edema. No palpitations. No paroxysmal nocturnal dyspnea. No orthopnea. No lightheadedness or dizziness. No syncopal episodes. Abdominal: Reported abdominal pain. No nausea, vomiting. No diarrhea. No constipation. No bloody or tarry stools.. No loss of appetite. Genitourinary: No dysuria, increased frequency, urgency. No urinary retention. Musculoskeletal: No myalgias. No muscle weakness, no gait dysfunction, no frequent falls. No back pain. No neck pain. Integumentary: Mild swelling to the right jaw and chin. No rash or pruritus. No unusual bruising. No change in hair or nails. Neurologic: No aphasia. No facial droop. No change in mentation. No head injury. No headache. No paralysis. No paresthesia. Psychiatric: No depression. No anxiety. No mood swings. Endocrine: No abnormal blood sugars. No weight change. No excessive sweating or thirst. No cold intolerance. Objective - Vital Signs Vital signs: Vital Signs Temp 98.2 F 07/07/20 15:56 Pulse 72 07/07/20 15:56 Resp 16 07/07/20 15:56 BP 148/81 07/07/20 15:56 Pulse Ox 97 07/07/20 15:56 Intake & Output 07/06/20 07/07/20 07/07/20 18:59 06:59 18:59 Output Total 1450 1800 1700 Balance -1450 -1800 -1700 Output: Urine 1450 1800 1700 Other: Voiding Method Indwelling Catheter Indwelling Catheter Indwelling Catheter - Constitutional General appearance: Present: cooperative, no acute distress - EENT Eyes: Present: EOMI, PERRLA, dentition normal ENT: Present: NA/AT, normal oropharynx - Respiratory Respiratory: bilateral: CTA, negative: diminished, dullness, rales - Cardiovascular Rhythm: regular Heart sounds: normal: S1, S2 - Gastrointestinal Gastrointestinal Comment(s): Colostomy bag is empty of stools no mucus, however lots of flatus General gastrointestinal: Present: normal bowel sounds, soft - Integumentary Integumentary: Present: calor, normal - Neurologic Neurologic: Present: CNII-XII intact - Musculoskeletal Musculoskeletal: Present: gait normal, strength equal bilaterally - Psychiatric Psychiatric: Present: A&O x's 3 - Labs CBC & Chem 7: 07/07/20 06:00 07/07/20 06:00 Labs: Abnormal Lab Results - Last 24 Hours (Table) 07/07/20 07/07/20 Range/Units 06:00 06:00 WBC 13.2 H (3.8-10.6) k/uL Neutrophils # 9.4 H (1.3-7.7) k/uL BUN 6.0 L (9.0-27.0) mg/dL BUN/Creatinine Ratio 10.00 L (12.00-20.00) Ratio Glucose 117 H (70-110) mg/dL Calcium 8.4 L (8.7-10.3) mg/dL Microbiology - Last 24 Hours (Table) 07/07/20 13:02 Wound Culture - Preliminary Face 07/05/20 22:16 Blood Culture - Preliminary Blood No Growth after 24 hours 07/05/20 22:16 Blood Culture - Preliminary Blood No Growth after 24 hours Assessment and Plan Plan: ASSESSMENT AND PLAN 1. Sepsis and pneumoperitoneum secondary to perforated diverticulitis, status post exploratory laparotomy, sigmoid colectomy and end colostomy, postop day #1. Patient is on STEVEDORE HOLD for pain control, Tylenol IV. Continue Zosyn. Zofran for nausea and vomiting. Consult with infectious disease. Clear liquids to start for lunch tolerated however has dyspepsia and bloating there is gas in the colostomy bag 2. Recent hospitalization for sepsis secondary to facial cellulitis in an immunocompromised host. Enbrel and prednisone on hold. Patient will be started on vancomycin, consult with infectious disease. 2. Uncontrolled adrenaline using 10 mg every 6 when necessary for over 160 Hy pertension, hypertensive cardiovascular disease. Continue Norvasc 5 mg daily. 3. Rheumatoid arthritis under the care of Dr. Goldman. Enbrel and prednisone on hold. 4. Gastroesophageal reflux disease. Continue Protonix 40 mg daily. Patient has dyspepsia, add Maalox, 4 times a day scheduled 8 doses 5. Generalized osteoarthritis, stable. 6. DVT prophylaxis. Heparin subcu. Patient will be admitted to the hospital for a minimum of 2 night stay. DISCHARGE PLAN Home.
--- NOTE | 2020-07-07 18:37 | PN ---
PROGRESS NOTE DATE OF SERVICE: 07/07/2020. REASON FOR FOLLOWUP: Right chin abscess and diverticulitis perforated. INTERVAL HISTORY: The patient is currently afebrile. The patient is breathing comfortably. The chin area swelling and redness has decreased. Still complaining of abdominal pain though. No nausea, vomiting. No chest pain, shortness of breath or cough. PHYSICAL EXAMINATION: Blood pressure 160/95 with a pulse of 55, temperature 97.9. She is 97% on 4 L nasal cannula. General description: The patient is a middle-aged female lying in bed in no distress. HEENT examination of the right chin area, induration and swelling has decreased. There was minimal drainage which has been cultured. LUNGS: Unlabored breathing. Clear to auscultation anteriorly. HEART S1, S2. Regular rate and rhythm. ABDOMEN: Soft, mildly tender. LABS: Hemoglobin 13.1, white count 13.2, BUN of 6, creatinine 0.6. Blood cultures so far negative. DIAGNOSTIC IMPRESSION AND PLAN: 1. Patient with right chin abscess, cellulitis with spontaneous drainage. Culture obtained. The patient is covered with daptomycin. 2. Patient with perforated diverticulitis status post diverting colostomy. Covered with Zosyn, to continue and monitor clinical course closely. MMODL / IJN: [id number] /
[2020-07-07] MEDS ORDERED: SUCCINYLCHOLINE CHLORIDE 100 MG/5 ML SYR IV ONE (22:55)
[2020-07-07] MEDS ORDERED: HYDROCORTISONE SUCCINATE 100 MG/2 ML VIAL ONE (22:55)
[2020-07-07] MEDS ORDERED: NEOSTIGMINE 1 MG/ML 10 ML VIAL ONE (22:55)
[2020-07-07] MEDS ORDERED: PROPOFOL 10 MG/ML 20 ML VIAL IV ONE (22:55)
[2020-07-07] MEDS ORDERED: ONDANSETRON 4 MG/2 ML VIAL ONE (22:55)
[2020-07-07] MEDS ORDERED: GLYCOPYRROLATE 0.2 MG/ML 2 ML VIAL ONE (22:55)
[2020-07-07] MEDS ORDERED: ACETAMINOPHEN IV (For NPO) 1,000 MG/100 ML VIAL ONE (22:55)
[2020-07-07] MEDS ORDERED: DEXAMETHASONE SOD PHOSPHATE 4 MG/ML 1 ML VIAL ONE (22:55)
[2020-07-07] MEDS ORDERED: ROCURONIUM 10 MG/ML (10 ML VIAL) IV ONE (22:55)
[2020-07-07] MEDS ORDERED: KETOROLAC 15 MG/ML 1 ML VIAL ONE (22:55)
[2020-07-07] MEDS ORDERED: fentaNYL (PF) 50 MCG/ML 2 ML AMP ONE (22:55)
[2020-07-07] MEDS ORDERED: MIDAZOLAM 2 MG/2 ML VIAL ONE (22:55)
[2020-07-08] MEDS: SODIUM CHLORIDE 0.9% 1,000 ML IV SCH ×2 (03:19→17:46)
[2020-07-08] MEDS: KETOROLAC 15 MG/ML 1 ML VIAL IVP SCH ×3 (06:11→17:58)
[2020-07-08] MEDS: PIPERACILLIN-TAZOBACTAM 3.375 GM in SODIUM CHLORIDE 0.9% 100 ML IVPB SCH ×3 (06:11→21:02)
[2020-07-08 06:25] LABS: Basophils % (A) 0 %; Eosinophils # (A) 0.4 k/uL (0-0.7); Eosinophils % (A) 4 %; HCT 41.4 % (34.0-46.0); HGB 13.8 gm/dL (11.4-16.0); Lymphocytes # (A) 2.2 k/uL (1.0-4.8); Lymphocytes % (A) 19 %; MCH 30.4 pg (25.0-35.0); MCHC 33.3 g/dL (31.0-37.0); MCV 91.4 fL (80.0-100.0); Mean Platelet Volume 7.4; Monocytes # (A) 0.5 k/uL (0-1.0); Monocytes % (A) 4 %; Neutrophils # (A) 7.9 k/uL (1.3-7.7); Neutrophils % (A) 71 %; Platelet Count 265 k/uL (150-450); RBC 4.53 m/uL (3.80-5.40); RDW 12.3 % (11.5-15.5); WBC 11.2 k/uL (3.8-10.6)
[2020-07-08] MEDS: D5-0.45% NACL WITH KCL 20MEQ/L 1,000 ML IV SCH ×2 (07:09→18:04)
[2020-07-08] MEDS: amLODIPine 5 MG TAB PO SCH (07:18)
[2020-07-08] MEDS: HEPARIN SODIUM,PORCINE 5,000 UNIT/ML 1 ML VIAL SQ SCH ×2 (07:18→17:54)
[2020-07-08] MEDS: MAG HYDROX/AL HYDROX/SIMETH 30 ML CUP PO SCH ×5 (07:19→21:02)
[2020-07-08] MEDS: PANTOPRAZOLE 40 MG TABLET PO SCH (07:19)
[2020-07-08 10:00] LABS: African American GFR (CKD) 110.7 (60.0-200.0); Anion Gap 7.3 mmol/L (4.00-12.00); BUN/Creat Ratio 8.57 Ratio (12.00-20.00); Calcium 8.4 mg/dL (8.7-10.3); Carbon Dioxide 26.7 mmol/L (21.6-31.8); Non-African American GFR(CKD) 95.5 (60.0-200.0); Potassium 4.4 mmol/L (3.5-5.5)
[2020-07-08 10:40] VITALS: BMI 30.9
[2020-07-08] MEDS: fentaNYL PCA 500 MCG/50 ML BAG IV PRN (10:51)
[2020-07-08] MEDS: ONDANSETRON 4 MG/2 ML VIAL IVP PRN ×2 (10:55→17:49)
--- NOTE | 2020-07-08 11:23 | P.PN ---
Progress Note - Text Progress Note Date: 07/08/20 Patient feels better today. She's had stool and gas in her colostomy bag. On exam vital signs are stable. Abdomen soft. Incision clean and intact. Status post sigmoid colectomy for perforated diverticulitis. Patient will have her diet advanced today.
--- NOTE | 2020-07-08 12:58 | XR ---
EXAMINATION TYPE: XR chest 1V portable DATE OF EXAM: 07/08/2020 COMPARISON: CT chest 07/06/2020 HISTORY: Hypoxemia TECHNIQUE: Single frontal view of the chest is obtained. FINDINGS: There is basilar increased density, or pneumothorax seen. The cardiac silhouette size is within normal limits. The osseous structures are intact. Postop changes are noted in the abdomen. T here may be some persistent pneumoperitoneum consistent with patient's history of surgery IMPRESSION: Basilar atelectasis is again noted, there is underlying emphysema, correlate to exclude pneumonia. Pneumoperitoneum may be related to patient's surgery.
--- NOTE | 2020-07-08 14:19 | P.PN ---
Subjective Progress Note Date: 07/08/20 HISTORY OF PRESENT ILLNESS HISTORY OF PRESENT ILLNESS This is a 59-year-old female patient of Dr. Cisneros with past medical history significant for hypertension and hypertensive cardiovascular disease with left ventricular hypertrophy, osteoarthritis, gastroesophageal reflux disease, diverticulosis, rheumatoid arthritis diagnosed in 2005 on Enbrel and followed by Dr. Goldman. Patient was hospitalized July 03 to July 05 for sepsis related to facial cellulitis and an immunocompromised host. Patient was treated with vancomycin with improvement and was discharged home on daptomycin to continue for 10 days at [facility]. Tired to discharge, patient complained of mild generalized discomfort in the right side of her abdomen which was thought to be related to constipation. Patient states that her abdominal pain worsened on the right side with radiation to the back. It was worse with deep inspiration. Patient came back to the emergency center for evaluation. CAT scan of the pelvis showed massive free air, more free air in the upper abdomen, diverticulosis sigmoid colon did not show definite inflammatory changes. Some constipation was appreciated. Patient was admitted to Dr. Lebron and went to [facility] for perforated sigmoid diverticulitis, umbilical hernia status post exploratory laparotomy, sigmoid colectomy and end colostomy. Patient is seen on [facility] floor. Her pain is currently controlled. 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 She denies having any chest pain. CTA of the chest ordered which was negative for acute pulmonary embolism. Moderate emphysematous change with atelectatic changes in the lower lungs. No suspicious focal infiltrate. Noted that patient's facial cellulitis is significantly improved since last seen. 07/07: Patient is on clear liquid diet today, however some nausea secondary to abdominal distention, she is bloated mainly with gas, has flat to's or gas in the colostomy bag, however there is still no stools, this is postop day #1 Maalox started, early ambulation, O2 at 2 L nasal cannula, for hypoxemia 97 at 4 L this cannula, vitals are 140-168, systolic, heart rate is under control, has amlodipine which was started today, and start hydralazine 10 every 6 when necessary for blood pressure over 160 07/08, full liquid diet today, patient still miserable secondary to postop pain, however bloating is less, no nausea, patient's seen in the recliner for today, O2 at 4 L this cannula, patient has some cough without any shortness of breath, chest x-ray to be done, and Incentive spirometry reinforced, might need Lasix, 94% on 4 L O2 REVIEW OF SYSTEMS Constitutional: No fever, no chills, no night sweats. No weight change. No weakness, fatigue or lethargy. No daytime sleepiness. EENT: No headache. No blurred vision or double vision, no loss of vision. No loss of Hearing, no ringing in the ears, no dizziness. No nasal drainage or congestion. No epistaxis. No sore throat. Reports facial pain. Lungs: No shortness of breath, cough, no sputum production. No wheezing. Cardiovascular: No chest pain, no lower extremity edema. No palpitations. No paroxysmal nocturnal dyspnea. No orthopnea. No lightheadedness or dizziness. No syncopal episodes. Abdominal: Reported abdominal pain. No nausea, vomiting. No diarrhea. No constipation. No bloody or tarry stools.. No loss of appetite. Genitourinary: No dysuria, increased frequency, urgency. No urinary retention. Musculoskeletal: No myalgias. No muscle weakness, no gait dysfunction, no frequent falls. No back pain. No neck pain. Integumentary: Mild swelling to the right jaw and chin. No rash or pruritus. No unusual bruising. No change in hair or nails. Neurologic: No aphasia. No facial droop. No change in mentation. No head injury. No headache. No paralysis. No paresthesia. Psychiatric: No depression. No anxiety. No mood swings. Endocrine: No abnormal blood sugars. No weight change. No excessive sweating or thirst. No cold intolerance. Objective - Vital Signs Vital signs: Vital Signs Temp 98.0 F 07/08/20 08:19 Pulse 90 07/08/20 08:19 Resp 16 07/08/20 08:19 BP 147/82 07/08/20 08:19 Pulse Ox 94 L 07/08/20 08:19 Intake & Output 07/07/20 07/08/20 07/08/20 18:59 06:59 18:59 Intake Total 0 Output Total 2250 650 1600 Balance -2250 -650 -1600 Weight 81.647 kg Intake: Oral 0 Output: Urine 2250 650 1600 Other: Voiding Method Indwelling Catheter Indwelling Catheter Indwelling Catheter - Constitutional General appearance: Present: cooperative, no acute distress - EENT Eyes: Present: EOMI, PERRLA, photophobia, normal appearance ENT: Present: NA/AT, normal oropharynx - Neck Neck: Present: normal ROM - Respiratory Respiratory: bilateral: CTA, negative: diminished, dullness - Cardiovascular Rhythm: regular Heart sounds: normal: S1, S2 Abnormal Heart Sounds: Absent: systolic murmur, diastolic murmur, rub, S3 Gallop , S4 Gallop, click, other - Gastrointestinal General gastrointestinal: Present: normal bowel sounds, soft - Integumentary Integumentary: Present: decreased turgor, normal - Neurologic Neurologic: Present: CNII-XII intact - Musculoskeletal Musculoskeletal: Present: gait normal, strength equal bilaterally - Psychiatric Psychiatric: Present: A&O x's 3, appropriate affect - Labs CBC & Chem 7: 07/08/20 06:04 07/08/20 06:04 Labs: Abnormal Lab Results - Last 24 Hours (Table) 07/08/20 07/08/20 Range/Units 06:04 06:04 WBC 11.2 H (3.8-10.6) k/uL Neutrophils # 7.9 H (1.3-7.7) k/uL BUN 6.0 L (9.0-27.0) mg/dL BUN/Creatinine Ratio 8.57 L (12.00-20.00) Ratio Glucose 127 H (70-110) mg/dL Calcium 8.4 L (8.7-10.3) mg/dL Microbiology - Last 24 Hours (Table) 07/07/20 13:02 Gram Stain - Preliminary Face Wound Culture - Preliminary Presumptive MRSA 07/05/20 22:16 Blood Culture - Preliminary Blood No Growth after 48 hours 07/05/20 22:16 Blood Culture - Preliminary Blood No Growth after 48 hours Assessment and Plan Plan: ASSESSMENT AND PLAN 1. Sepsis and pneumoperitoneum secondary to perforated diverticulitis, status post exploratory laparotomy, sigmoid colectomy and end colostomy, postop day #1. 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 Continue Zosyn. Zofran for nausea and vomiting. Consult with infectious disease. Clear liquids to start for lunch tolerated however has dyspepsia and bloating there is gas in the colostomy bag 2. Hypoxemia, without any current symptomatology, however patient's comfortable, chest x-ray to be done, need to eval for fluid overload, however condition exists, might need to investigate pulmonary emboli in the future, she is on incentive spirometry, and subcu heparin 2. Recent hospitalization for sepsis secondary to facial cellulitis in an immunocompromised host. Enbrel and prednisone on hold. Patient will be started on vancomycin, consult with infectious disease. 2. Uncontrolled adrenaline using 10 mg every 6 when necessary for over 160 Hypertension, hypertensive cardiovascular disease. Continue Norvasc 5 mg daily. 3. Rheumatoid arthritis under the care of Dr. Goldman. Enbrel and prednisone on hold. 4. Gastroesophageal reflux disease. Continue Protonix 40 mg daily. Patient has dyspepsia, add Maalox, 4 times a day scheduled 8 doses 5. Generalized osteoarthritis, stable. 6. DVT prophylaxis. Heparin subcu. Patient will be admitted to the hospital for a minimum of 2 night stay. DISCHARGE PLAN Home.
[2020-07-08] MEDS: DAPTOmycin 500 MG in SODIUM CHLORIDE 0.9% 50 ML IVPB SCH (14:28)
[2020-07-08] MEDS: METOCLOPRAMIDE 5 MG/ML 2 ML VIAL IVP PRN (19:44)
[2020-07-08] MEDS: PROMETHAZINE 25 MG TAB PO PRN (21:03)
--- NOTE | 2020-07-08 23:32 | PN ---
PROGRESS NOTE DATE OF SERVICE: 07/08/2020 REASON FOR FOLLOWUP: 1. Chin abscess and MRSA. 2. Diverticulitis perforated. INTERVAL HISTORY: The patient is currently afebrile. The patient overall pain and discomfort to the chin area has decreased. Denies any chest pain or shortness of breath. No cough. Has been complaining of more abdominal discomfort and gas but no vomiting. PHYSICAL EXAMINATION: Blood pressure 120/85 with a pulse of 100. Temperature 99.1. She is 95% on 4 L nasal cannula. General description is a middle-aged female lying in bed in no distress. HEENT examination: The chin area swelling and redness has decreased. LUNGS: Unlabored breathing. Clear to auscultation anteriorly. HEART S1, S2. Regular rate and rhythm. ABDOMEN: Soft, nondistended. No guarding. No rigidity. LABS: Hemoglobin is 13.8, white count 11.2, BUN of 6, creatinine 0.7. DIAGNOSTIC IMPRESSION AND PLAN: 1. Patient with chin abscess secondary to MRSA. Currently covered with daptomycin to continue. 2. Patient with perforated diverticulitis and secondary peritonitis. Covered with Zosyn to continue and monitor clinical course closely. MMODL / IJN: [id number] /
[2020-07-09] MEDS: HEPARIN SODIUM,PORCINE 5,000 UNIT/ML 1 ML VIAL SQ SCH ×4 (00:27→23:38)
[2020-07-09] MEDS: KETOROLAC 15 MG/ML 1 ML VIAL IVP SCH ×5 (00:27→23:38)
[2020-07-09] MEDS: D5-0.45% NACL WITH KCL 20MEQ/L 1,000 ML IV SCH ×3 (00:28→17:34)
[2020-07-09] MEDS: ONDANSETRON 4 MG/2 ML VIAL IVP PRN (00:35)
[2020-07-09] MEDS: PIPERACILLIN-TAZOBACTAM 3.375 GM in SODIUM CHLORIDE 0.9% 100 ML IVPB SCH ×3 (05:28→21:01)
[2020-07-09] MEDS: METOCLOPRAMIDE 5 MG/ML 2 ML VIAL IVP PRN ×2 (05:28→22:18)
[2020-07-09] MEDS: SODIUM CHLORIDE 0.9% 1,000 ML IV SCH ×2 (05:29→20:55)
[2020-07-09 06:07] LABS: Basophils % (A) 0 %; Eosinophils # (A) 0.4 k/uL (0-0.7); Eosinophils % (A) 3 %; HCT 44.7 % (34.0-46.0); Lymphocytes # (A) 2.1 k/uL (1.0-4.8); Lymphocytes % (A) 15 %; MCH 30.5 pg (25.0-35.0); MCHC 33.5 g/dL (31.0-37.0); MCV 91.1 fL (80.0-100.0); Mean Platelet Volume 7.3; Monocytes # (A) 0.5 k/uL (0-1.0); Monocytes % (A) 3 %; Neutrophils # (A) 11.2 k/uL (1.3-7.7); Neutrophils % (A) 78 %; Platelet Count 340 k/uL (150-450); RBC 4.91 m/uL (3.80-5.40); RDW 12.2 % (11.5-15.5); WBC 14.2 k/uL (3.8-10.6)
[2020-07-09] MEDS: amLODIPine 5 MG TAB PO SCH (08:10)
[2020-07-09] MEDS: PANTOPRAZOLE 40 MG TABLET PO SCH (08:13)
[2020-07-09 08:42] LABS: African American GFR (CKD) 94.2 (60.0-200.0); Anion Gap 5.8 mmol/L (4.00-12.00); BUN/Creat Ratio 11.25 Ratio (12.00-20.00); Calcium 8.6 mg/dL (8.7-10.3); Carbon Dioxide 25.2 mmol/L (21.6-31.8); Non-African American GFR(CKD) 81.3 (60.0-200.0); Potassium 4.5 mmol/L (3.5-5.5)
[2020-07-09] MEDS: PROMETHAZINE 25 MG TAB PO PRN ×2 (08:43→23:50)
[2020-07-09] MEDS ORDERED: SCOPOLAMINE 1.5MG/72HR PATCH TRANSDERM STA (08:50)
--- NOTE | 2020-07-09 11:26 | P.PN ---
<CherriAlexandria - Last Filed: 07/09/20 11:18> Subjective Progress Note Date: 07/09/20 CHIEF COMPLAINT: Pneumoperitoneum HISTORY OF PRESENT ILLNESS: Patient is status post exploratory laparotomy, sigmoid colectomy and end colostomy for perforated sigmoid diverticulitis and umbilical hernia. Patient has been having nausea and vomiting that started last night. Her ostomy is functioning. She has had both stool and gas presents to the ostomy. She denies any increase in her abdominal pain. Her incision site is clean dry and intact. Medicine did add scopolamine patch for nausea. Her white count did go up from 11.2-14.2 she is tachycardic heart rate 114. Chest x-ray basilar atelectasis, underlying emphysema correlate to exclude pneumonia. Pneumoperitoneum related to patient's surgery. PHYSICAL EXAM: VITAL SIGNS: Reviewed. GENERAL: Well-developed in no acute distress. HEENT: No sclera icterus. Extraocular movements grossly intact. Moist buccal mucosa. Head is atraumatic, normocephalic. ABDOMEN: Soft. distended. Incision site clean dry and intact. Stool present in the colostomy bag NEUROLOGIC: Alert and oriented. Cranial nerves II through XII grossly intact. ASSESSMENT: 1. Perforated sigmoid diverticulitis and all umbilical hernia status post exploratory laparotomy, sigmoid colectomy and end colostomy PLAN: -Continue full liquid diet -Continue [employer] pump for pain control -Continue IV antibiotics -Continue IV fluids -Agree with scopolamine patch -Continue antinausea medication -Encouraged patient to use incentive spirometer -Encouraged patient to increase activity -GI prophylaxis Pepcid and DVT prophylaxis subcu heparin [employer] Professor note has been reviewed by physician. Signing provider agrees with the documented findings, assessment, and plan of care. Objective - Vital Signs Vital signs: Vital Signs Temp 97.9 F 07/09/20 08:33 Pulse 114 H 07/09/20 08:33 Resp 25 H 07/09/20 08:33 BP 146/91 07/09/20 08:33 Pulse Ox 92 L 07/09/20 08:33 Intake & Output 07/08/20 07/09/20 07/09/20 18:59 06:59 18:59 Intake Total 200 Output Total 1600 650 Balance -1400 -650 Weight 81.647 kg Intake: Oral 200 Output: Urine 1600 650 Other: Voiding Method Indwelling Catheter Indwelling Catheter Indwelling Catheter - Labs CBC & Chem 7: 07/09/20 05:50 07/09/20 05:50 Labs: Abnormal Lab Results - Last 24 Hours (Table) 07/09/20 07/09/20 Range/Units 05:50 05:50 WBC 14.2 H (3.8-10.6) k/uL Neutrophils # 11.2 H (1.3-7.7) k/uL BUN/Creatinine Ratio 11.25 L (12.00-20.00) Ratio Glucose 138 H (70-110) mg/dL Calcium 8.6 L (8.7-10.3) mg/dL Microbiology - Last 24 Hours (Table) 07/05/20 22:16 Blood Culture - Preliminary Blood No Growth after 72 hours 07/05/20 22:16 Blood Culture - Preliminary Blood No Growth after 72 hours 07/07/20 13:02 Gram Stain - Preliminary Face Wound Culture - Preliminary Presumptive MRSA <Milind Lebron - Last Filed: 07/09/20 14:42> Subjective As above. Patient has had problems with nausea and vomiting. Improved this afternoon. Says her pain for the most part has been mild. Ostomy is functioning with stool and flatus. Continue liquid diet. Continue antibiotics Continue increasing activity. Will follow. Objective - Vital Signs Vital signs: Vital Signs Temp 99.3 F 07/09/20 13:44 Pulse 84 07/09/20 13:44 Resp 15 07/09/20 13:44 BP 130/84 07/09/20 13:44 Pulse Ox 96 07/09/20 13:44 Intake & Output 07/08/20 07/09/20 07/09/20 18:59 06:59 18:59 Intake Total 200 Output Total 1600 650 Balance -1400 -650 Weight 81.647 kg Intake: Oral 200 Output: Urine 1600 650 Other: Voiding Method Indwelling Catheter Indwelling Catheter Indwelling Catheter - Labs CBC & Chem 7: 07/09/20 05:50 07/09/20 05:50 Labs: Abnormal Lab Results - Last 24 Hours (Table) 07/09/20 07/09/20 Range/Units 05:50 05:50 WBC 14.2 H (3.8-10.6) k/uL Neutrophils # 11.2 H (1.3-7.7) k/uL BUN/Creatinine Ratio 11.25 L (12.00-20.00) Ratio Glucose 138 H (70-110) mg/dL Calcium 8.6 L (8.7-10.3) mg/dL Microbiology - Last 24 Hours (Table) 07/07/20 13:02 Gram Stain - Preliminary Face Wound Culture - Preliminary Presumptive MRSA 07/05/20 22:16 Blood Culture - Preliminary Blood No Growth after 72 hours 07/05/20 22:16 Blood Culture - Preliminary Blood No Growth after 72 hours Assessment and Plan (1) Perforated bowel Current Visit: Yes Status: Acute Code(s): K63.1 - PERFORATION OF INTESTINE (NONTRAUMATIC) SNOMED Code(s): 49673368
[2020-07-09] MEDS ORDERED: HYDROcodone/APAP 5-325MG 1 EACH TAB PO PRN (11:36)
--- NOTE | 2020-07-09 11:39 | P.PN ---
Subjective Progress Note Date: 07/09/20 HISTORY OF PRESENT ILLNESS This is a 59-year-old female patient of Dr. Cisneros with past medical history significant for hypertension and hypertensive cardiovascular di sease with left ventricular hypertrophy, osteoarthritis, gastroesophageal reflux disease, diverticulosis, rheumatoid arthritis diagnosed in 2005 on Enbrel and followed by Dr. Goldman. Patient was hospitalized July 03 to July 05 for sepsis related to facial cellulitis and an immunocompromised host. Patient was treated with vancomycin with improvement and was discharged home on daptomycin to continue for 10 days at [facility]. Patient was followed by Dr. Lewis. Starting the night before, patient was complaining of some generalized discomfort in the right side of her abdomen which was thought to be related to constipation. Patient was planning to fern picker stool softeners but was discharged home as her abdomen was completely benign and examination. However, patient states that her abdominal pain worsened on the right side with radiation to the back. It was worse with deep inspiration. Patient came back to the emergency center for evaluation. CAT scan of the pelvis showed massive free air, more free air in the upper abdomen, diverticulosis sigmoid colon did not show definite inflam matory changes. Some constipation was appreciated. Patient was admitted to Dr. Lebron and went to [facility] for perforated sigmoid diverticulitis, umbilical hernia status post exploratory laparotomy, sigmoid colectomy and end colostomy. Patient is seen on the [facility] floor. Her pain is currently controlled. BREAD WRAPPER OPERATOR is in place. She denies having any chest pain. Noted that she is requiring oxygen at 3 L and concern for PE. CTA of the chest ordered which was negative for acute pulmonary embolism. Moderate emphysematous change with atelectatic changes in the lower lungs. No suspicious focal infiltrate. Noted that patient's facial cellulitis is significantly improved since last seen. 07/07: Patient is on clear liquid diet today, however some nausea secondary to abdominal distention, she is bloated mainly with gas, has flat to's or gas in the colostomy bag, however there is still no stools, this is postop day #1 Maalox started, early ambulation, O2 at 2 L nasal cannula, for hypoxemia 97 at 4 L this cannula, vitals are 140-168, systolic, heart rate is under control, has amlodipine which was started today, and start hydralazine 10 every 6 when necessary for blood pressure over 160 07/08, full liquid diet today, patient still miserable secondary to postop pain, however bloating is less, no nausea, patient's seen in the recliner for today, O2 at 4 L this cannula, patient has some cough without any shortness of breath, chest x-ray to be done, and Incentive spirometry reinforced, might need Lasix, 94% on 4 L O2 07/09: Patient states that she has been passing gas in her ostomy. Patient is noted to have small amount of brown stool. Patient states that she had insurance last night and ever since she's had ongoing vomiting. She states she has no appetite but she tried to have some chicken broth this morning but vomited this. Patient is already on Zofran, Phenergan and Reglan for nausea and vomiting. We will add in a scopolamine patch. Patient also states that she is not using her BREAD WRAPPER OPERATOR as she thinks that the fentanyl is causing more nausea and vomiting. We will start a small dose of [place]. She is currently on daptomycin and Zosyn. Patient is been afebrile, heart rate 86, blood pressure 121/82, pulse ox 95% on 4 L nasal cannula. WBC 14.2, hemoglobin 15, platelet count 340. Electrolytes normal, creatinine 0.8. REVIEW OF SYSTEMS Constitutional: No fever, no chills, no night sweats. No weight change. No weakness, fatigue or lethargy. No daytime sleepiness. EENT: No headache. No blurred vision or double vision, no loss of vision. No loss of Hearing, no ringing in the ears, no dizziness. No nasal drainage or congestion. No epistaxis. No sore throat. Reports facial pain. Lungs: No shortness of breath, cough, no sputum production. No wheezing. Cardiovascular: No chest pain, no lower extremity edema. No palpitations. No paroxysmal nocturnal dyspnea. No orthopnea. No lightheadedness or dizziness. No syncopal episodes. Abdominal: Reports abdominal pain. Reports nausea, reports vomiting. No diarrhea. No constipation. No bloody or tarry stools.. No loss of appetite. Genitourinary: No dysuria, increased frequency, urgency. No urinary retention. Musculoskeletal: No myalgias. No muscle weakness, no gait dysfunction, no frequent falls. No back pain. No neck pain. Integumentary: Mild swelling to the right jaw and chin. No rash or pruritus. No unusual bruising. No change in hair or nails. Neurologic: No aphasia. No facial droop. No change in mentation. No head injury. No headache. No paralysis. No paresthesia. Psychiatric: No depression. No anxiety. No mood swings. Endocrine: No abnormal blood sugars. No weight change. No excessive sweating or thirst. No cold intolerance. PHYSICAL EXAMINATION Gen: This is a 59-year-old female. She is resting in bed and appears to be uncomfortable canary to nausea. No respiratory distress is noted. HEENT: Head is atraumatic, normocephalic. Pupils equal, round. Sclerae is anicteric. Patient has small wound to the right lower chin. No drainage. NECK: Supple. No JVD. No lymphadenopathy. No thyromegaly. No stridor noted LUNGS: Clear to auscultation. No wheezes or rhonchi. No intercostal retractions. HEART: Regular rate and rhythm. No murmur. ABDOMEN: Mild distention. Dressing on midline incision. Ostomy on the left of the abdomen with pink stoma, brown stools. EXTREMITIES: No pedal edema. No calf tenderness. NEUROLOGICAL: Patient is awake, alert and oriented x3. Cranial nerves 2 through 12 are grossly intact. ASSESSMENT AND PLAN 1. Sepsis and pneumoperitoneum secondary to perforated diverticulitis, status post exploratory laparotomy, sigmoid colectomy and end colostomy, postop day #4. Patient is on BREAD WRAPPER OPERATOR for pain control, Tylenol IV. Continue Zosyn. Zofran, Phenergan, Reglan for nausea and vomiting. He had a scopolamine patch. Consult with infectious disease. Currently on a full liquid diet but not tolerating. 2. Recent hospitalization for sepsis secondary to facial cellulitis in an immunocompromised host. Enbrel and prednisone on hold. Continue daptomycin, consult with infectious disease appreciated. 2. Hypertension, hypertensive cardiovascular disease. Continue Norvasc 5 mg daily. Hydralazine IV push as needed. 3. Rheumatoid arthritis under the care of Dr. Goldman. Enbrel and prednisone on hold. 4. Gastroesophageal reflux disease. Continue Protonix 40 mg daily. 5. Generalized osteoarthritis, stable. 6. DVT prophylaxis. Heparin subcu. 7. Hypoxemia without acute respiratory failure. Negative for pulmonary embolism. DISCHARGE PLAN Home. Impression and plan of care have been directed as dictated by the signing physician. Renita Ornelas nurse practitioner acting as scribe for signing physician. Objective - Vital Signs Vital signs: Vital Signs Temp 97.9 F 07/09/20 08:33 Pulse 114 H 07/09/20 08:33 Resp 25 H 07/09/20 08:33 BP 146/91 07/09/20 08:33 Pulse Ox 92 L 07/09/20 08:33 Intake & Output 07/08/20 07/09/20 07/09/20 18:59 06:59 18:59 Intake Total 200 Output Total 1600 650 Balance -1400 -650 Weight 81.647 kg Intake: Oral 200 Output: Urine 1600 650 Other: Voiding Method Indwelling Catheter Indwelling Catheter - Labs CBC & Chem 7: 07/09/20 05:50 07/09/20 05:50 Labs: Abnormal Lab Results - Last 24 Hours (Table) 07/08/20 07/09/20 07/09/20 Range/Units 06:04 05:50 05:50 WBC 14.2 H (3.8-10.6) k/uL Neutrophils # 11.2 H (1.3-7.7) k/uL BUN 6.0 L (9.0-27.0) mg/dL BUN/Creatinine Ratio 8.57 L 11.25 L (12.00-20.00) Ratio Glucose 127 H 138 H (70-110) mg/dL Calcium 8.4 L 8.6 L (8.7-10.3) mg/dL Microbiology - Last 24 Hours (Table) 07/05/20 22:16 Blood Culture - Preliminary Blood No Growth after 72 hours 07/05/20 22:16 Blood Culture - Preliminary Blood No Growth after 72 hours 07/07/20 13:02 Gram Stain - Preliminary Face Wound Culture - Preliminary Presumptive MRSA
--- NOTE | 2020-07-09 12:17 | CDI ---
Documentation Clarification Form Date: 07/09/2020 11:12:44 AM From: July Linder RN, CCDS Admit Date: 07/05/2020 10:02:00 PM Patient Name: Anabella Siddiqi Visit Number: [id number] Discharge Date: ATTENTION: The Clinical Documentation Specialists (CDI) and [facility] Coding Staff appreciate your assistance in clarifying documentation. Please respond to the clarification below the line at the bottom and electronically sign. The CDI & [facility] Coding staff will review the response and follow-up if needed. Please note: Queries are made part of the Legal Health Record. If you have any questions, please contact the author of this message via ITS. Dr. Milind Lebron The patient presented on 07/05 ruled in for perforated sigmoid diverticulitis. 07/06 Medical consult documented sepsis and pneumonoperitoneum secondary to perforated diverticulitis. History/Risk Factors: Rheumatoid Arthritis, Immunocompromised host, Sepsis related to facial cellulitis, Hypertension Clinical Indicators: 59-year-old male on 07/05 presents for evaluation of right sided abdominal pain. Vital signs upon presentation are temperature 98.0 F, pulse 85, and respiration 18, and blood pressure 135/92, pulse ox 98% room air. CT abdomen and pelvis did reveal pneumoperitoneum with free air mostly in the right upper quadrant. 07/05 WBC 25.6, Neutrophils 93 07/05 Lactic acid: 2.6 07/05 Blood cultures: Pending Treatment: 07/06 Exploratory laparotomy sigmoid colectomy and end colostomy 07/06 ID Consult: Sepsis and pneumoperitoneum secondary to perforated diverticulitis 07/08 ID progress note: Perforated diverticulitis and secondary peritonitis Antibiotics: Vancomycin 1,250 IVPB; Zosyn 3.375 GM, IVPB Q 8 HRS, Daptomycin 500 MG IVPB Q 24/HRS .9NS IV @ 75 MIL/HR Fentanyl GRAVEL SCREENER (per protocol) In your professional opinion, please clarify if these findings signify one of the following conditions, whether the condition is POA, and cause, if known: Condition Sepsis ruled in secondary to perforated sigmoid diverticulitis with secondary peritonitis, present on admission Identify the (suspected) organism Link or clarify if there is associated (due to/with): Organ failure Shock SIRS Criteria (2 or more of the following may indicate SIRS): -Temperature < 96.8F (36C) or > 101.0F (38.3C) -Heart Rate > 90 bpm -Respiratory Rate > 20 breaths/min or PaCO2 < 32 mmHg -White Blood Cell Count > 12,000 or < 4,000 cells/mm3 or > 10% bands -Lactate >2.0 mmol/L (>4.0 is equivalent to septic shock) (Last Revision: September 2017) MTDD
[2020-07-09] MEDS: DAPTOmycin 500 MG in SODIUM CHLORIDE 0.9% 50 ML IVPB SCH (15:49)
--- NOTE | 2020-07-09 22:15 | PN ---
PROGRESS NOTE DATE OF SERVICE: 07/09/2020 REASON FOR FOLLOWUP: 1. Chin abscess and MRSA. 2. Perforated diverticulitis. INTERVAL HISTORY: Patient is currently afebrile. The patient's chin area swelling is improved. No vomiting. Has been complaining of more nausea, abdominal pain and no odor has been noticed. PHYSICAL EXAMINATION: Blood pressure 105/70 with a pulse of 80. Temperature 99.2. She is 95% on 4 L nasal cannula. General description is a middle-aged female lying in bed in no distress. Respiratory system: Unlabored breathing, clear to auscultation anteriorly. Heart S1, S2. Regular rate and rhythm. ABDOMEN: Soft. No tenderness. No guarding. No rigidity. LABS: White count elevated at 14.2 today with a BUN of 9, creatinine 0.8. DIAGNOSTIC IMPRESSION AND PLAN: 1. Patient with MRSA chin abscess status post spontaneous drainage, covered with daptomycin. 2. Patient with perforated diverticulitis status post diverting colostomy, seemed to have issues with abdominal pain, nausea, covered with Zosyn. We will monitor clinical course closely. 3. Continue supportive care. MMODL / IJN: [id number] /
[2020-07-10] MEDS: D5-0.45% NACL WITH KCL 20MEQ/L 1,000 ML IV SCH ×2 (00:52→07:30)
[2020-07-10] MEDS: KETOROLAC 15 MG/ML 1 ML VIAL IVP SCH ×4 (05:03→23:03)
[2020-07-10] MEDS: PIPERACILLIN-TAZOBACTAM 3.375 GM in SODIUM CHLORIDE 0.9% 100 ML IVPB SCH ×3 (05:03→21:01)
[2020-07-10] MEDS: amLODIPine 5 MG TAB PO SCH (07:30)
[2020-07-10] MEDS: PANTOPRAZOLE 40 MG/10 ML VIAL IVP SCH (07:30)
[2020-07-10] MEDS: HEPARIN SODIUM,PORCINE 5,000 UNIT/ML 1 ML VIAL SQ SCH ×3 (07:31→23:03)
[2020-07-10] MEDS: SODIUM CHLORIDE 0.9% 1,000 ML IV SCH ×4 (07:39→23:06)
[2020-07-10] MEDS: PROMETHAZINE 25 MG TAB PO PRN (07:53)
[2020-07-10] MEDS: METOCLOPRAMIDE 5 MG/ML 2 ML VIAL IVP PRN (09:43)
[2020-07-10] MEDS: HYDROcodone/APAP 5-325MG 1 EACH TAB PO PRN (10:19)
[2020-07-10 10:28] LABS: Basophils # (A) 0.03 X 10*3/uL (0.00-0.10); Basophils % (A) 0.2 %; Eosinophils # (A) 0.49 X 10*3/uL (0.04-0.35); Eosinophils % (A) 3.7 %; HCT 42.4 % (37.2-46.3); HGB 13.8 g/dL (12.0-15.0); Lymphocytes # (A) 1.66 X 10*3/uL (0.90-5.00); Lymphocytes % (A) 12.4 %; MCH 29.8 pg (27.0-32.0); MCHC 32.5 g/dL (32.0-37.0); MCV 91.6 fL (80.0-97.0); Mean Platelet Volume 9.7 fL (9.5-12.2); Monocytes # (A) 0.73 X 10*3/uL (0.20-1.00); Monocytes % (A) 5.5 %; Neutrophils # (A) 10.37 X 10*3/uL (1.80-7.70); Neutrophils % (A) 77.4 %; Platelet Count 337 X 10*3/uL (140-440); RBC 4.63 X 10*6/uL (4.10-5.20); RDW 12.4 % (11.5-14.5); WBC 13.39 X 10*3/uL (4.50-10.00)
[2020-07-10 10:51] LABS: African American GFR (CKD) 110.7 (60.0-200.0); Anion Gap 7.5 mmol/L (4.00-12.00); BUN/Creat Ratio 11.43 Ratio (12.00-20.00); Calcium 8.7 mg/dL (8.7-10.3); Carbon Dioxide 26.5 mmol/L (21.6-31.8); Non-African American GFR(CKD) 95.5 (60.0-200.0); Potassium 5.3 mmol/L (3.5-5.5)
--- NOTE | 2020-07-10 10:58 | P.PN ---
Subjective Progress Note Date: 07/10/20 HISTORY OF PRESENT ILLNESS This is a 59-year-old female patient of Dr. Cisneros with past medical history significant for hypertension and hypertensive cardiovascular di sease with left ventricular hypertrophy, osteoarthritis, gastroesophageal reflux disease, diverticulosis, rheumatoid arthritis diagnosed in 2005 on Enbrel and followed by Dr. Goldman. Patient was hospitalized July 03 to July 05 for sepsis related to facial cellulitis and an immunocompromised host. Patient was treated with vancomycin with improvement and was discharged home on daptomycin to continue for 10 days at [facility]. Patient was followed by Dr. Lewis. Starting the night before, patient was complaining of some generalized discomfort in the right side of her abdomen which was thought to be related to constipation. Patient was planning to poultry picking machine tender stool softeners but was discharged home as her abdomen was completely benign and examination. However, patient states that her abdominal pain worsened on the right side with radiation to the back. It was worse with deep inspiration. Patient came back to the emergency center for evaluation. CAT scan of the pelvis showed massive free air, more free air in the upper abdomen, diverticulosis sigmoid colon did not show definite inflam matory changes. Some constipation was appreciated. Patient was admitted to Dr. Lebron and went to [facility] for perforated sigmoid diverticulitis, umbilical hernia status post exploratory laparotomy, sigmoid colectomy and end colostomy. Patient is seen on the [facility] floor. Her pain is currently controlled. TAR HEEL is in place. She denies having any chest pain. Noted that she is requiring oxygen at 3 L and concern for PE. CTA of the chest ordered which was negative for acute pulmonary embolism. Moderate emphysematous change with atelectatic changes in the lower lungs. No suspicious focal infiltrate. Noted that patient's facial cellulitis is significantly improved since last seen. 07/07: Patient is on clear liquid diet today, however some nausea secondary to abdominal distention, she is bloated mainly with gas, has flat to's or gas in the colostomy bag, however there is still no stools, this is postop day #1 Maalox started, early ambulation, O2 at 2 L nasal cannula, for hypoxemia 97 at 4 L this cannula, vitals are 140-168, systolic, heart rate is under control, has amlodipine which was started today, and start hydralazine 10 every 6 when necessary for blood pressure over 160 07/08, full liquid diet today, patient still miserable secondary to postop pain, however bloating is less, no nausea, patient's seen in the recliner for today, O2 at 4 L this cannula, patient has some cough without any shortness of breath, chest x-ray to be done, and Incentive spirometry reinforced, might need Lasix, 94% on 4 L O2 07/09: Patient states that she has been passing gas in her ostomy. Patient is noted to have small amount of brown stool. Patient states that she had insurance last night and ever since she's had ongoing vomiting. She states she has no appetite but she tried to have some chicken broth this morning but vomited this. Patient is already on Zofran, Phenergan and Reglan for nausea and vomiting. We will add in a scopolamine patch. Patient also states that she is not using her TAR HEEL as she thinks that the fentanyl is causing more nausea and vomiting. We will start a small dose of [place]. She is currently on daptomycin and Zosyn. Patient is been afebrile, heart rate 86, blood pressure 121/82, pulse ox 95% on 4 L nasal cannula. WBC 14.2, hemoglobin 15, platelet count 340. Electrolytes normal, creatinine 0.8. 07/10: Patient states that the scopolamine patch work for about 6-8 hours yesterday and then around 8 PM after she ate some clear liquids and pudding she started having nausea all through the night and vomited once this morning. She is passing gas and stool in the colostomy. Harris catheter is draining adequate amount of clear sarwat urine. She is on IV antibiotics in the form of Zosyn and daptomycin. Facial cellulitis is significantly improved. Patient has been afebrile, heart rate 89, blood pressure 155/87, pulse ox 96% on 4 L nasal cannula. Repeat blood work reveals WBC 13.3, hemoglobin 13.8. Electrolytes normal, BUN 8 and creatinine 0.7. Blood sugar 116. Recommend the patient avoid using the fentanyl TAR HEEL and try to use [place] only. REVIEW OF SYSTEMS Constitutional: No fever, no chills, no night sweats. No weight change. No weakness, fatigue or lethargy. No daytime sleepiness. EENT: No headache. No blurred vision or double vision, no loss of vision. No loss of Hearing, no ringing in the ears, no dizziness. No nasal drainage or congestion. No epistaxis. No sore throat. Reports facial pain. Lungs: No shortness of breath, cough, no sputum production. No wheezing. Cardiovascular: No chest pain, no lower extremity edema. No palpitations. No paroxysmal nocturnal dyspnea. No orthopnea. No lightheadedness or dizziness. No syncopal episodes. Abdominal: Reports abdominal discomfort. Reports nausea, reports vomiting. No diarrhea. No constipation. No bloody or tarry stools. Reports loss of appetite. Genitourinary: No dysuria, increased frequency, urgency. No urinary retention. Musculoskeletal: No myalgias. No muscle weakness, no gait dysfunction, no frequent falls. No back pain. No neck pain. Integumentary: Mild swelling to the right jaw and chin. No rash or pruritus. No unusual bruising. No change in hair or nails. Neurologic: No aphasia. No facial droop. No change in mentation. No head injury. No headache. No paralysis. No paresthesia. Psychiatric: No depression. No anxiety. No mood swings. Endocrine: No abnormal blood sugars. No weight change. No excessive sweating or thirst. No cold intolerance. PHYSICAL EXAMINATION Gen: This is a 59-year-old female. She is resting in bed and appears to be in no acute distress. HEENT: Head is atraumatic, normocephalic. Pupils equal, round. Sclerae is anicteric. Patient has small wound to the right lower chin. No drainage. Significantly decreased erythema and edema. NECK: Supple. No JVD. No lymphadenopathy. No thyromegaly. No stridor noted LUNGS: Clear to auscultation. No wheezes or rhonchi. No intercostal retractions. HEART: Regular rate and rhythm. No murmur. ABDOMEN: Mild distention. Dressing on midline incision. Ostomy on the left of the abdomen with pink stoma, brown stool and gas and colostomy bag. EXTREMITIES: No pedal edema. No calf tenderness. NEUROLOGICAL: Patient is awake, alert and oriented x3. Cranial nerves 2 through 12 are grossly intact. ASSESSMENT AND PLAN 1. Sepsis and pneumoperitoneum secondary to perforated diverticulitis, status post exploratory laparotomy, sigmoid colectomy and end colostomy, postop day #4. Patient is on TAR HEEL for pain control, Tylenol IV. Continue Zosyn. Zofran, Phenergan, Reglan for nausea and vomiting. Continue scopolamine patch. Consult with infectious disease. Currently on a clear liquid diet. 2. Recent hospitalization for sepsis secondary to facial cellulitis in an immunocompromised host. Enbrel and prednisone on hold. Continue daptomycin, consult with infectious disease appreciated. 2. Hypertension, hypertensive cardiovascular disease. Continue Norvasc 5 mg daily. Hydralazine IV push as needed. 3. Rheumatoid arthritis under the care of Dr. Goldman. Enbrel and prednisone on hold. 4. Gastroesophageal reflux disease. Continue Protonix 40 mg daily. 5. Generalized osteoarthritis, stable. 6. DVT prophylaxis. Heparin subcu. 7. Hypoxemia without acute respiratory failure. Negative for pulmonary embolism. DISCHARGE PLAN Home. Impression and plan of care have been directed as dictated by the signing physician. Renita Ornelas nurse practitioner acting as scribe for signing physician. Objective - Vital Signs Vital signs: Vital Signs Temp 99.5 F 07/10/20 01:54 Pulse 86 07/10/20 01:54 Resp 15 07/09/20 13:44 BP 151/88 07/10/20 01:54 Pulse Ox 96 07/10/20 01:54 Intake & Output 07/09/20 07/10/20 07/10/20 18:59 06:59 18:59 Other: Voiding Method Indwelling Catheter Indwelling Catheter - Labs CBC & Chem 7: 07/10/20 06:51 07/10/20 06:51 Labs: Abnormal Lab Results - Last 24 Hours (Table) 07/09/20 Range/Units 05:50 BUN/Creatinine Ratio 11.25 L (12.00-20.00) Ratio Glucose 138 H (70-110) mg/dL Calcium 8.6 L (8.7-10.3) mg/dL Microbiology - Last 24 Hours (Table) 07/05/20 22:16 Blood Culture - Preliminary Blood No Growth after 96 hours 07/05/20 22:16 Blood Culture - Preliminary Blood No Growth after 96 hours 07/07/20 13:02 Gram Stain - Preliminary Face Wound Culture - Preliminary Presumptive MRSA
--- NOTE | 2020-07-10 10:59 | P.PN ---
<CarmenAlexandria torres - Last Filed: 07/10/20 10:54> Subjective Progress Note Date: 07/10/20 CHIEF COMPLAINT: Pneumoperitoneum HISTORY OF PRESENT ILLNESS: Patient is status post exploratory laparotomy, sigmoid colectomy and end colostomy for perforated sigmoid diverticulitis and umbilical hernia. Patient does report improvement in her nausea and vomiting with the scopolamine patch for about 6 hours yesterday. She then started having the nausea and vomiting again through the night. Every time she tries to eat her clear liquids she vomits. She has stopped using the B[employer] pump she thought that may be contributing to her nausea and vomiting. Medicine has added [place] to help with pain control. But patient reports she can only take about a half a tablet of the [place] 5. She is still complaining of abdominal pain and pain is worse with movement. Her ostomy is functioning. She's afebrile. Her white count is trending down 13.39 potassium 5.3 magnesium 2.3 her heart rate has improved. She is not tachycardic. She still requiring 4 L of oxygen. Patient's incisional sophie and dressing changed yesterday. PHYSICAL EXAM: VITAL SIGNS: Reviewed. GENERAL: Well-developed in no acute distress. HEENT: No sclera icterus. Extraocular movements grossly intact. Moist buccal mucosa. Head is atraumatic, normocephalic. ABDOMEN: Soft. distended. Incisional dressing to areas where sophie are shows saturation through dressing. Stool present in the colostomy bag NEUROLOGIC: Alert and oriented. Cranial nerves II through XII grossly intact. ASSESSMENT: 1. Perforated sigmoid diverticulitis and all umbilical hernia status post exploratory laparotomy, sigmoid colectomy and end colostomy PLAN: -Check two-view abdominal x-ray -Add IV Tylenol for pain control -Continue clear liquid diet. It is okay for patient to have some saltine crackers -Discontinue BEN[employer]ACHINE pump -Continue IV antibiotics -Change IV fluids to normal saline. Patient's potassium is increasing -Continue antinausea medication -Encouraged patient to use incentive spirometer -Encouraged patient to increase activity -GI prophylaxis Pepcid and DVT prophylaxis subcu heparin Physician Tank Hoop Bender note has been reviewed by physician. Signing provider agrees with the documented findings, assessment, and plan of care. Objective - Vital Signs Vital signs: Vital Signs Temp 99 F 07/10/20 08:00 Pulse 89 02/02/21 08:00 Resp 16 07/10/20 08:00 BP 155/87 07/10/20 08:00 Pulse Ox 96 07/10/20 08:00 Intake & Output 07/09/20 07/10/20 07/10/20 18:59 06:59 18:59 Output Total 1400 Balance -1400 Output: Urine 1400 Other: Voiding Method Indwelling Catheter Indwelling Catheter Indwelling Catheter - Labs CBC & Chem 7: 07/10/20 06:51 07/10/20 06:51 Labs: Abnormal Lab Results - Last 24 Hours (Table) 07/10/20 07/10/20 Range/Units 06:51 06:51 WBC 13.39 H (4.50-10.00) X 10*3/uL Immature Gran # 0.11 H (0.00-0.04) X 10*3/uL Neutrophils # 10.37 H (1.80-7.70) X 10*3/uL Eosinophils # 0.49 H (0.04-0.35) X 10*3/uL BUN 8.0 L (9.0-27.0) mg/dL BUN/Creatinine Ratio 11.43 L (12.00-20.00) Ratio Glucose 116 H (70-110) mg/dL Microbiology - Last 24 Hours (Table) 07/05/20 22:16 Blood Culture - Preliminary Blood No Growth after 96 hours 07/05/20 22:16 Blood Culture - Preliminary Blood No Growth after 96 hours 07/07/20 13:02 Gram Stain - Preliminary Face Wound Culture - Preliminary Presumptive MRSA <Milind Lebron - Last Filed: 07/10/20 12:02> Subjective As above. Patient still with episodes of nausea and vomiting. Pain is improved. She has no pain currently. Low-grade fevers. White blood cell count remains 13. Today's x-rays show ileus pattern. Continue clears for now. Increase ambulation. Recommend Harris catheter removal but patient would like to keep it for now. We'll reassess Harris removal tomorrow. Pathology noted. Objective - Vital Signs Vital signs: Vital Signs Temp 99 F 07/10/20 08:00 Pulse 89 07/10/20 08:00 Resp 16 07/10/20 08:00 BP 155/87 07/10/20 08:00 Pulse Ox 96 07/10/20 08:00 Intake & Output 07/09/20 07/10/20 07/10/20 18:59 06:59 18:59 Output Total 1400 Balance -1400 Output: Urine 1400 Other: Voiding Method Indwelling Catheter Indwelling Catheter Indwelling Catheter - Labs CBC & Chem 7: 07/10/20 06:51 07/10/20 06:51 Labs: Abnormal Lab Results - Last 24 Hours (Table) 07/10/20 07/10/20 Range/Units 06:51 06:51 WBC 13.39 H (4.50-10.00) X 10*3/uL Immature Gran # 0.11 H (0.00-0.04) X 10*3/uL Neutrophils # 10.37 H (1.80-7.70) X 10*3/uL Eosinophils # 0.49 H (0.04-0.35) X 10*3/uL BUN 8.0 L (9.0-27.0) mg/dL BUN/Creatinine Ratio 11.43 L (12.00-20.00) Ratio Glucose 116 H (70-110) mg/dL Microbiology - Last 24 Hours (Table) 07/07/20 13:02 Gram Stain - Final Face Wound Culture - Final Methicillin resist S. aureus 07/05/20 22:16 Blood Culture - Preliminary Blood No Growth after 96 hours 07/05/20 22:16 Blood Culture - Preliminary Blood No Growth after 96 hours Assessment and Plan (1) Perforated bowel Current Visit: Yes Status: Acute Code(s): K63.1 - PERFORATION OF INTESTINE (NONTRAUMATIC) SNOMED Code(s): 72098930
--- NOTE | 2020-07-10 11:40 | XR ---
EXAMINATION TYPE: XR abdomen 2V DATE OF EXAM: 07/10/2020 COMPARISON: None INDICATION: Abdomen pain recent bowel perforation nausea vomiting TECHNIQUE: Single view abdomen upright view FINDINGS: There is nonspecific bowel gas pattern. Air-fluid levels are within prominent air-filled small bowel loops. Differential air-fluid level may be within the midabdomen. Some colonic bowel gas is present. Postsurgical sutures are in the midline. No mass effect is evident. Small right pleural effusion is present. Minimal left pleural effusion may be present. IMPRESSION: 1. Air-fluid levels within the differential air-fluid level within air-filled small bowel loops. Find ings can be compatible with ileus, especially postsurgical. Partial small bowel obstruction should be considered. Follow-up should be performed.
[2020-07-10] MEDS: ACETAMINOPHEN IV (For NPO) 1,000 MG in EMPTY BAG 1 BAG IVPB SCH ×3 (11:42→23:03)
[2020-07-10] MEDS: DAPTOmycin 500 MG in SODIUM CHLORIDE 0.9% 50 ML IVPB SCH (14:02)
--- NOTE | 2020-07-10 18:09 | PN ---
PROGRESS NOTE DATE OF SERVICE: 07/10/2020 REASON FOR FOLLOWUP: 1. Chin abscess MRSA. 2. Diverticulitis and perforation. INTERVAL HISTORY: The patient is currently afebrile. The patient is feeling better today. Breathing comfortably. The patient's chin area swelling and redness has improved. No further drainage. No chest pain. No cough. Abdominal pain has improved. No nausea. No vomiting. PHYSICAL EXAMINATION: Blood pressure 143/82 with a pulse of 79, temperature 98.1. She is 97% on 4 L nasal cannula. General description is a middle-aged female up in the chair in no distress. HEENT examination: Chin area swelling and redness has improved. No drainage. LUNGS: Unlabored breathing. Clear to auscultation anteriorly. HEART: S1, S2. Regular rate and rhythm. ABDOMEN: Soft. Mildly tender. No guarding. No rigidity. LABS: Hemoglobin is 13.8, white count 13.39, BUN of 8, creatinine 0.7. DIAGNOSTIC IMPRESSION AND PLAN: 1. Patient with methicillin-resistant Staphylococcus aeruginosa chin abscess, status post spontaneous drainage. Covered with daptomycin; to continue. The patient is currently n.p.o. 2. Patient with perforated diverticulitis, status post diverting colostomy with evidence of possible ileus. Patient is covered with Zosyn; to continue and monitor her clinical course closely. MMODL / IJN: [id number] /
[2020-07-11] MEDS: ACETAMINOPHEN IV (For NPO) 1,000 MG in EMPTY BAG 1 BAG IVPB SCH (05:11)
[2020-07-11] MEDS: KETOROLAC 15 MG/ML 1 ML VIAL IVP SCH ×3 (05:12→17:39)
[2020-07-11] MEDS: PIPERACILLIN-TAZOBACTAM 3.375 GM in SODIUM CHLORIDE 0.9% 100 ML IVPB SCH ×2 (05:12→15:38)
[2020-07-11] MEDS: SODIUM CHLORIDE 0.9% 1,000 ML IV SCH ×4 (05:16→19:21)
[2020-07-11] MEDS: PANTOPRAZOLE 40 MG/10 ML VIAL IVP SCH (08:39)
[2020-07-11] MEDS: amLODIPine 5 MG TAB PO SCH (08:39)
[2020-07-11] MEDS: HEPARIN SODIUM,PORCINE 5,000 UNIT/ML 1 ML VIAL SQ SCH ×2 (08:39→15:42)
--- NOTE | 2020-07-11 11:29 | P.PN ---
Subjective Progress Note Date: 07/11/20 HISTORY OF PRESENT ILLNESS This is a 59-year-old female patient of Dr. Cisneros with past medical history significant for hypertension and hypertensive cardiovascular di sease with left ventricular hypertrophy, osteoarthritis, gastroesophageal reflux disease, diverticulosis, rheumatoid arthritis diagnosed in 2005 on Enbrel and followed by Dr. Goldman. Patient was hospitalized July 03 to July 05 for sepsis related to facial cellulitis and an immunocompromised host. Patient was treated with vancomycin with improvement and was discharged home on daptomycin to continue for 10 days at [facility]. Patient was followed by Dr. Lewis. Starting the night before, patient was complaining of some generalized discomfort in the right side of her abdomen which was thought to be related to constipation. Patient was planning to picker and packer stool softeners but was discharged home as her abdomen was completely benign and examination. However, patient states that her abdominal pain worsened on the right side with radiation to the back. It was worse with deep inspiration. Patient came back to the emergency center for evaluation. CAT scan of the pelvis showed massive free air, more free air in the upper abdomen, diverticulosis sigmoid colon did not show definite inflam matory changes. Some constipation was appreciated. Patient was admitted to Dr. Lebron and went to [facility] for perforated sigmoid diverticulitis, umbilical hernia status post exploratory laparotomy, sigmoid colectomy and end colostomy. Patient is seen on the [facility] floor. Her pain is currently controlled. SPLUNK CONSULTANT is in place. She denies having any chest pain. Noted that she is requiring oxygen at 3 L and concern for PE. CTA of the chest ordered which was negative for acute pulmonary embolism. Moderate emphysematous change with atelectatic changes in the lower lungs. No suspicious focal infiltrate. Noted that patient's facial cellulitis is significantly improved since last seen. 07/07: Patient is on clear liquid diet today, however some nausea secondary to abdominal distention, she is bloated mainly with gas, has flat to's or gas in the colostomy bag, however there is still no stools, this is postop day #1 Maalox started, early ambulation, O2 at 2 L nasal cannula, for hypoxemia 97 at 4 L this cannula, vitals are 140-168, systolic, heart rate is under control, has amlodipine which was started today, and start hydralazine 10 every 6 when necessary for blood pressure over 160 07/08, full liquid diet today, patient still miserable secondary to postop pain, however bloating is less, no nausea, patient's seen in the recliner for today, O2 at 4 L this cannula, patient has some cough without any shortness of breath, chest x-ray to be done, and Incentive spirometry reinforced, might need Lasix, 94% on 4 L O2 2: Patient states that she has been passing gas in her ostomy. Patient is noted to have small amount of brown stool. Patient states that she had insurance last night and ever since she's had ongoing vomiting. She states she has no appetite but she tried to have some chicken broth this morning but vomited this. Patient is already on Zofran, Phenergan and Reglan for nausea and vomiting. We will add in a scopolamine patch. Patient also states that she is not using her SPLUNK CONSULTANT as she thinks that the fentanyl is causing more nausea and vomiting. We will start a small dose of [place]. She is currently on daptomycin and Zosyn. Patient is been afebrile, heart rate 86, blood pressure 121/82, pulse ox 95% on 4 L nasal cannula. WBC 14.2, hemoglobin 15, platelet count 340. Electrolytes normal, creatinine 0.8. 2/2: Patient states that the scopolamine patch work for about 6-8 hours yesterday and then around 8 PM after she ate some clear liquids and pudding she started having nausea all through the night and vomited once this morning. She is passing gas and stool in the colostomy. Harris catheter is draining adequate amount of clear sarwat urine. She is on IV antibiotics in the form of Zosyn and daptomycin. Facial cellulitis is significantly improved. Patient has been afebrile, heart rate 89, blood pressure 155/87, pulse ox 96% on 4 L nasal cannula. Repeat blood work reveals WBC 13.3, hemoglobin 13.8. Electrolytes normal, BUN 8 and creatinine 0.7. Blood sugar 116. Recommend the patient avoid using the fentanyl SPLUNK CONSULTANT and try to use [place] only. 23: Patient is off fentanyl SPLUNK CONSULTANT and nausea is significantly better. She is currently on clear liquids with crackers. She is to meet again today with ostomy nurse. Harris catheter to be removed later today. Erythema and edema to her face is significantly improved. There is a small area of dried scab and Bactroban will be added. She has been afebrile, heart rate 69, blood pressure 131/78, pulse ox 94% on 4 L nasal cannula. REVIEW OF SYSTEMS Constitutional: No fever, no chills, no night sweats. No weight change. No weakness, fatigue or lethargy. No daytime sleepiness. EENT: No headache. No blurred vision or double vision, no loss of vision. No loss of Hearing, no ringing in the ears, no dizziness. No nasal drainage or congestion. No epistaxis. No sore throat. Reports facial pain. Lungs: No shortness of breath, cough, no sputum production. No wheezing. Cardiovascular: No chest pain, no lower extremity edema. No palpitations. No paroxysmal nocturnal dyspnea. No orthopnea. No lightheadedness or dizziness. No syncopal episodes. Abdominal: Reports abdominal discomfort. Denies nausea, denies vomiting. No diarrhea. No constipation. No bloody or tarry stools. Denies loss of appetite. Genitourinary: No dysuria, increased frequency, urgency. No urinary retention. Musculoskeletal: No myalgias. No muscle weakness, no gait dysfunction, no fr equent falls. No back pain. No neck pain. Integumentary: Mild redness to the right chin. No rash or pruritus. No unusual bruising. No change in hair or nails. Neurologic: No aphasia. No facial droop. No change in mentation. No head injury. No headache. No paralysis. No paresthesia. Psychiatric: No depression. No anxiety. No mood swings. Endocrine: No abnormal blood sugars. No weight change. No excessive sweating or thirst. No cold intolerance. PHYSICAL EXAMINATION Gen: This is a 59-year-old female. She is resting in bed and appears to be in no acute distress. HEENT: Head is atraumatic, normocephalic. Pupils equal, round. Sclerae is anicteric. Patient has small wound to the right lower chin. No drainage. Significantly decreased erythema and edema. NECK: Supple. No JVD. No lymphadenopathy. No thyromegaly. No stridor noted LUNGS: Clear to auscultation. No wheezes or rhonchi. No intercostal retractions. HEART: Regular rate and rhythm. No murmur. ABDOMEN: Mild distention. Dressing on midline incision. Ostomy on the left of the abdomen with pink stoma, brown stool and gas and colostomy bag. EXTREMITIES: No pedal edema. No calf tenderness. NEUROLOGICAL: Patient is awake, alert and oriented x3. Cranial nerves 2 through 12 are grossly intact. ASSESSMENT AND PLAN 1. Sepsis and pneumoperitoneum secondary to perforated diverticulitis, status post exploratory laparotomy, sigmoid colectomy and end colostomy, postop day #6. SPLUNK CONSULTANT has been discontinued. Continue [place] for pain. Continue Zosyn. Consult with infectious disease. Currently on a clear liquid diet. Harris catheter to be removed. 2. Recent hospitalization for sepsis secondary to facial cellulitis in an immunocompromised host. Enbrel and prednisone on hold. Continue daptomycin, consult with infectious disease appreciated. 2. Hypertension, hypertensive cardiovascular disease. Continue Norvasc 5 mg daily. Hydralazine IV push as needed. 3. Rheumatoid arthritis under the care of Dr. Goldman. Enbrel and prednisone on hold. 4. Gastroesophageal reflux disease. Continue Protonix 40 mg daily. 5. Generalized osteoarthritis, stable. 6. DVT prophylaxis. Heparin subcu. 7. Hypoxemia without acute respiratory failure. Negative for pulmonary embolism. DISCHARGE PLAN Home. Impression and plan of care have been directed as dictated by the signing physician. Renita Ornelas nurse practitioner acting as scribe for signing physician. Objective - Vital Signs Vital signs: Vital Signs Temp 98.1 F 07/11/20 01:33 Pulse 75 07/11/20 01:33 Resp 18 07/10/20 14:54 BP 131/80 07/11/20 01:33 Pulse Ox 96 07/11/20 01:33 Intake & Output 07/10/20 07/11/20 07/11/20 18:59 06:59 18:59 Output Total 2800 2100 Balance -2800 -2100 Output: Urine 2800 2100 Other: Voiding Method Indwelling Catheter Indwelling Catheter - Labs CBC & Chem 7: 07/10/20 06:51 07/10/20 06:51 Labs: Abnormal Lab Results - Last 24 Hours (Table) 07/10/20 07/10/20 Range/Units 06:51 06:51 WBC 13.39 H (4.50-10.00) X 10*3/uL Immature Gran # 0.11 H (0.00-0.04) X 10*3/uL Neutrophils # 10.37 H (1.80-7.70) X 10*3/uL Eosinophils # 0.49 H (0.04-0.35) X 10*3/uL BUN 8.0 L (9.0-27.0) mg/dL BUN/Creatinine Ratio 11.43 L (12.00-20.00) Ratio Glucose 116 H (70-110) mg/dL Microbiology - Last 24 Hours (Table) 07/07/20 13:02 Gram Stain - Final Face Wound Culture - Final Methicillin resist S. aureus 07/05/20 22:16 Blood Culture - Preliminary Blood No Growth after 120 hours 07/05/20 22:16 Blood Culture - Preliminary Blood No Growth after 120 hours
--- NOTE | 2020-07-11 11:38 | P.PN ---
Subjective Progress Note Date: 07/11/20 Principal diagnosis: Diverticulitis Patient doing better today. No significant discomfort. No further nausea and vomiting. She is asking for more to eat. Objective - Vital Signs Vital signs: Vital Signs Temp 98.4 F 07/11/20 07:32 Pulse 69 07/11/20 07:32 Resp 17 07/11/20 07:32 BP 131/78 07/11/20 07:32 Pulse Ox 94 L 07/11/20 07:32 Intake & Output 07/10/20 07/11/20 07/11/20 18:59 06:59 18:59 Output Total 2800 2100 Balance -2800 -2100 Weight 81.647 kg Output: Urine 2800 2100 Other: Voiding Method Indwelling Catheter Indwelling Catheter Toilet - Exam Abdomen: Soft, nondistended, wounds clean, ostomy functioning - Labs CBC & Chem 7: 07/10/20 06:51 07/10/20 06:51 Labs: Microbiology - Last 24 Hours (Table) 07/07/20 13:02 Gram Stain - Final Face Wound Culture - Final Methicillin resist S. aureus 07/05/20 22:16 Blood Culture - Preliminary Blood No Growth after 120 hours 07/05/20 22:16 Blood Culture - Preliminary Blood No Growth after 120 hours Assessment and Plan (1) Perforated bowel Narrative/Plan: Patient doing better at this time. Continue antibiotics. Advance diet. Possible discharge tomorrow. Current Visit: Yes Status: Acute Code(s): K63.1 - PERFORATION OF INTESTINE (NONTRAUMATIC) SNOMED Code(s): 76892293
[2020-07-11] MEDS: MUPIROCIN 2% OINT 22 GM TUBE TOPICAL SCH ×3 (12:37→22:14)
[2020-07-11] MEDS: DAPTOmycin 500 MG in SODIUM CHLORIDE 0.9% 50 ML IVPB SCH (15:38)
--- NOTE | 2020-07-11 16:02 | CDI ---
Documentation Clarification Form Date: 07/11/2020 03:28:01 PM From: July Linder RN, CCDS Admit Date: 07/05/2020 10:02:00 PM Patient Name: Anabella Siddiqi Visit Number: [id number] Discharge Date: ATTENTION: The Clinical Documentation Specialists (CDI) and [facility] Coding Staff appreciate your assistance in clarifying documentation. Please respond to the clarification below the line at the bottom and electronically sign. The CDI & [facility] Coding staff will review the response and follow-up if needed. Please note: Queries are made part of the Legal Health Record. If you have any questions, please contact the author of this message via ITS. Dr. Milind Lebron Evidence of possible ileus is documented in the 07/[address] Lewis. Please render your opinion on the possible ileus diagnosis. Patients Admitting Diagnosis: Pneumoperitoneum, umbilical hernia Post-Operative Diagnosis: Perforated sigmoid diverticulitis with sepsis and secondary peritonitis Procedure performed: 07/06/20: Exploratory laparotomy, Sigmoid colectomy with end colostomy History/Risk Factors: Diverticulosis, Pneumoperitoneum Clinical Indicators: 59-year-old female present to ED on 08/05 with complaints of right-sided abdominal pain. CT abdomen and pelvis did reveal penumoperitoneum with free air mostly in the right upper quadrant. She had surgery on 07/06/20. 07/07 she was on clear liquid diet, having some nausea secondary to abdominal distention ostomy pink stoma with brown stools. Vital signs: 07/10@08:00: 155/87 89 16 99 07/10 Labs: WBC 13.39 07/10 XR abdomen 2 View: Air-fluid levels within the differential air-fluid level within air-filled small bowel loops. Findings can be compatible with ileus, especially postsurgical. Partial small bowel obstruction should be considered. Treatment: Maalox 30 MLPO QID (07/07-07/08) Reglan 10 MG IVP Q 6 HRS PRN Zofran 4 MG IVP Q 6 HRS PRN Protonix 40 MG IVP Daily Phenergan 25 MG PO Q6 HRS PRN .9NS @125 MLS/HR Increase activity In order to accurately reflect this patients severity of illness, please clarify if the possible ileus: -has been ruled out -is a complication of surgical procedure -is an expected outcome of the surgical procedure -is related to co-morbid condition(s) of -Other please specify -Unable to determine (Last Revision: July 2019) MTDD
[2020-07-11] MEDS: HYDROcodone/APAP 5-325MG 1 EACH TAB PO PRN ×2 (17:40→22:16)
[2020-07-11] MEDS: metroNIDAZOLE 500 MG TAB PO SCH (22:16)
--- NOTE | 2020-07-11 23:06 | PN ---
PROGRESS NOTE DATE OF SERVICE: 07/11/2020 REASON FOR FOLLOWUP: 1. Chin abscess MRSA. 2. Diverticulitis, perforated. INTERVAL HISTORY: The patient is currently afebrile. The patient is breathing comfortably. The patient denies having any chest pain or shortness of breath or cough. No vomiting. No abdominal pain or diarrhea. Did have output in her colostomy bag. PHYSICAL EXAMINATION: Blood pressure is 131/73 with a pulse of 85. Temperature 99.1. She is 92% on room air. General description is a middle-aged female lying in bed in no distress. RESPIRATORY SYSTEM: Unlabored breathing. Clear to auscultation anteriorly. HEART: S1, S2. Regular rate and rhythm. ABDOMEN: Soft. Incision looks clean. No drainage. LABS: Hemoglobin is 13.8, white count 13.9, BUN of 8, creatinine 0.7. DIAGNOSTIC IMPRESSION AND PLAN: 1. Patient with perforated diverticulitis, status post diverting colostomy. The patient's white count is still elevated; mildly concerning. We will adjust antibiotic therapy to Rocephin and Flagyl and see response of the white count to it. 2. Patient with a chin abscess, spontaneous drainage. Culture with MRSA. Covered with daptomycin. Finish therapy with oral antibiotics. MMODL / IJN: [id number] /
[2020-07-12] MEDS: SODIUM CHLORIDE 0.9% 1,000 ML IV SCH ×5 (00:02→23:36)
[2020-07-12] MEDS: HEPARIN SODIUM,PORCINE 5,000 UNIT/ML 1 ML VIAL SQ SCH ×4 (00:02→23:39)
[2020-07-12] MEDS: PIPERACILLIN-TAZOBACTAM 3.375 GM in SODIUM CHLORIDE 0.9% 100 ML IVPB SCH (01:44)
[2020-07-12] MEDS: HYDROcodone/APAP 5-325MG 1 EACH TAB PO PRN ×4 (01:51→23:33)
[2020-07-12 08:33] LABS: Basophils # (A) 0.04 X 10*3/uL (0.00-0.10); Basophils % (A) 0.3 %; Eosinophils % (A) 4.4 %; HCT 37.9 % (37.2-46.3); HGB 12.5 g/dL (12.0-15.0); Lymphocytes # (A) 1.96 X 10*3/uL (0.90-5.00); Lymphocytes % (A) 17.1 %; MCV 91.1 fL (80.0-97.0); Mean Platelet Volume 9.5 fL (9.5-12.2); Neutrophils # (A) 8.05 X 10*3/uL (1.80-7.70); Neutrophils % (A) 70.2 %; Platelet Count 283 X 10*3/uL (140-440); RBC 4.16 X 10*6/uL (4.10-5.20); RDW 12.2 % (11.5-14.5); WBC 11.47 X 10*3/uL (4.50-10.00)
[2020-07-12] MEDS: PANTOPRAZOLE 40 MG/10 ML VIAL IVP SCH (09:17)
[2020-07-12] MEDS: metroNIDAZOLE 500 MG TAB PO SCH ×3 (09:17→23:33)
[2020-07-12] MEDS: amLODIPine 5 MG TAB PO SCH (09:17)
[2020-07-12] MEDS: MUPIROCIN 2% OINT 22 GM TUBE TOPICAL SCH ×3 (09:19→23:36)
--- NOTE | 2020-07-12 09:41 | P.PN ---
Subjective Progress Note Date: 07/12/20 HISTORY OF PRESENT ILLNESS This is a 59-year-old female patient of Dr. Cisneros with past medical history significant for hypertension and hypertensive cardiovascular di sease with left ventricular hypertrophy, osteoarthritis, gastroesophageal reflux disease, diverticulosis, rheumatoid arthritis diagnosed in 2005 on Enbrel and followed by Dr. Goldman. Patient was hospitalized July 03 to July 05 for sepsis related to facial cellulitis and an immunocompromised host. Patient was treated with vancomycin with improvement and was discharged home on daptomycin to continue for 10 days at [facility]. Patient was followed by Dr. Lewis. Starting the night before, patient was complaining of some generalized discomfort in the right side of her abdomen which was thought to be related to constipation. Patient was planning to draft roller picker stool softeners but was discharged home as her abdomen was completely benign and examination. However, patient states that her abdominal pain worsened on the right side with radiation to the back. It was worse with deep inspiration. Patient came back to the emergency center for evaluation. CAT scan of the pelvis showed massive free air, more free air in the upper abdomen, diverticulosis sigmoid colon did not show definite inflam matory changes. Some constipation was appreciated. Patient was admitted to Dr. Lebron and went to [facility] for perforated sigmoid diverticulitis, umbilical hernia status post exploratory laparotomy, sigmoid colectomy and end colostomy. Patient is seen on the [facility] floor. Her pain is currently controlled. SALESPERSON [employer] is in place. She denies having any chest pain. Noted that she is requiring oxygen at 3 L and concern for PE. CTA of the chest ordered which was negative for acute pulmonary embolism. Moderate emphysematous change with atelectatic changes in the lower lungs. No suspicious focal infiltrate. Noted that patient's facial cellulitis is significantly improved since last seen. 07/07: Patient is on clear liquid diet today, however some nausea secondary to abdominal distention, she is bloated mainly with gas, has flat to's or gas in the colostomy bag, however there is still no stools, this is postop day #1 Maalox started, early ambulation, O2 at 2 L nasal cannula, for hypoxemia 97 at 4 L this cannula, vitals are 140-168, systolic, heart rate is under control, has amlodipine which was started today, and start hydralazine 10 every 6 when necessary for blood pressure over 160 07/08, full liquid diet today, patient still miserable secondary to postop pain, however bloating is less, no nausea, patient's seen in the recliner for today, O2 at 4 L this cannula, patient has some cough without any shortness of breath, chest x-ray to be done, and Incentive spirometry reinforced, might need Lasix, 94% on 4 L O2 2: Patient states that she has been passing gas in her ostomy. Patient is noted to have small amount of brown stool. Patient states that she had insurance last night and ever since she's had ongoing vomiting. She states she has no appetite but she tried to have some chicken broth this morning but vomited this. Patient is already on Zofran, Phenergan and Reglan for nausea and vomiting. We will add in a scopolamine patch. Patient also states that she is not using her [employer] as she thinks that the fentanyl is causing more nausea and vomiting. We will start a small dose of [place]. She is currently on daptomycin and Zosyn. Patient is been afebrile, heart rate 86, blood pressure 121/82, pulse ox 95% on 4 L nasal cannula. WBC 14.2, hemoglobin 15, platelet count 340. Electrolytes normal, creatinine 0.8. 2/2: Patient states that the scopolamine patch work for about 6-8 hours yesterday and then around 8 PM after she ate some clear liquids and pudding she started having nausea all through the night and vomited once this morning. She is passing gas and stool in the colostomy. Harris catheter is draining adequate amount of clear sarwat urine. She is on IV antibiotics in the form of Zosyn and daptomycin. Facial cellulitis is significantly improved. Patient has been afebrile, heart rate 89, blood pressure 155/87, pulse ox 96% on 4 L nasal cannula. Repeat blood work reveals WBC 13.3, hemoglobin 13.8. Electrolytes normal, BUN 8 and creatinine 0.7. Blood sugar 116. Recommend the patient avoid using the fentanyl [employer] and try to use [place] only. 23: Patient is off fentanyl [employer] and nausea is significantly better. She is currently on clear liquids with crackers. She is to meet again today with ostomy nurse. Harris catheter to be removed later today. Erythema and edema to her face is significantly improved. There is a small area of dried scab and Bactroban will be added. She has been afebrile, heart rate 69, blood pressure 131/78, pulse ox 94% on 4 L nasal cannula. 07/12: Patient states nausea and vomiting continued to improve. She does complain of pain in the right lower quadrant that is quite severe especially with any movement. She is currently tolerating a low fiber. She has output ileostomy and has worked with the ostomy nurse. Patient has been afebrile, heart rate 91, blood pressure 120/71, pulse ox 93% on room air. WBC 11.4, hemoglobin 12.5. Antibiotics on Rocephin and Flagyl per Dr. Lewis. Patient is also on daptomycin for the chin abscess cellulitis. REVIEW OF SYSTEMS Constitutional: No fever, no chills, no night sweats. No weight change. No weakness, fatigue or lethargy. No daytime sleepiness. EENT: No headache. No blurred vision or double vision, no loss of vision. No loss of Hearing, no ringing in the ears, no dizziness. No nasal drainage or congestion. No epistaxis. No sore throat. Reports facial pain. Lungs: No shortness of breath, cough, no sputum production. No wheezing. Cardiovascular: No chest pain, no lower extremity edema. No palpitations. No paroxysmal nocturnal dyspnea. No orthopnea. No lightheadedness or dizziness. No syncopal episodes. Abdominal: Reports abdominal discomfort. Denies nausea, denies vomiting. No diarrhea. No constipation. No bloody or tarry stools. Denies loss of appetite. Genitourinary: No dysuria, increased frequency, urgency. No urinary retention. Musculoskeletal: No myalgias. No muscle weakness, no gait dysfunction, no frequent falls. No back pain. No neck pain. Integumentary: Mild redness to the right chin. No rash or pruritus. No unusual bruising. No change in hair or nails. Neurologic: No aphasia. No facial droop. No change in mentation. No head injury. No headache. No paralysis. No paresthesia. Psychiatric: No depression. No anxiety. No mood swings. Endocrine: No abnormal blood sugars. No weight change. No excessive sweating or thirst. No cold intolerance. PHYSICAL EXAMINATION Gen: This is a 59-year-old female. She is resting in bed and appears to be in no acute distress. HEENT: Head is atraumatic, normocephalic. Pupils equal, round. Sclerae is a nicteric. Patient has small wound to the right lower chin. No drainage. Significantly decreased erythema and edema. NECK: Supple. No JVD. No lymphadenopathy. No thyromegaly. No stridor noted LUNGS: Clear to auscultation. No wheezes or rhonchi. No intercostal retractions. HEART: Regular rate and rhythm. No murmur. ABDOMEN: Mild distention. Dressing on midline incision. Ostomy on the left of the abdomen with pink stoma, brown stool and gas and colostomy bag. EXTREMITIES: No pedal edema. No calf tenderness. NEUROLOGICAL: Patient is awake, alert and oriented x3. Cranial nerves 2 through 12 are grossly intact. ASSESSMENT AND PLAN 1. Sepsis and pneumoperitoneum secondary to perforated diverticulitis, status post exploratory laparotomy, sigmoid colectomy and end colostomy, postop day #7. [employer] has been discontinued. Continue [place] for pain. Continue Rocephin and Flagyl. Consult with infectious disease. Currently on a clear liquid diet. CAT scan of the abdomen and pelvis due to right lower quadrant pain after okay with Dr. Lebron 2. Recent hospitalization for sepsis secondary to facial cellulitis in an immunocompromised host. Enbrel and prednisone on hold. Continue daptomycin, consult with infectious disease appreciated. 2. Hypertension, hypertensive cardiovascular disease. Continue Norvasc 5 mg daily. Hydralazine IV push as needed. 3. Rheumatoid arthritis under the care of Dr. Goldman. Enbrel and prednisone on hold. 4. Gastroesophageal reflux disease. Continue Protonix 40 mg daily. 5. Generalized osteoarthritis, stable. 6. DVT prophylaxis. Heparin subcu. 7. Hypoxemia without acute respiratory failure. Negative for pulmonary embolism. DISCHARGE PLAN Home. Do not expect need for IV antibiotics. Impression and plan of care have been directed as dictated by the signing physician. Renita Ornelas nurse practitioner acting as scribe for signing physician. Objective - Vital Signs Vital signs: Vital Signs Temp 98.8 F 07/11/20 23:55 Pulse 91 07/11/20 23:55 Resp 18 07/11/20 19:35 BP 120/71 07/11/20 23:55 Pulse Ox 93 L 07/11/20 23:55 Intake & Output 07/11/20 07/12/20 07/12/20 18:59 06:59 18:59 Intake Total 400 Balance 400 Weight 81.647 kg Intake: Oral 400 Other: Voiding Method Toilet Toilet - Labs CBC & Chem 7: 07/12/20 06:10 07/10/20 06:51 Labs: Abnormal Lab Results - Last 24 Hours (Table) 07/12/20 Range/Units 06:10 WBC 11.47 H (4.50-10.00) X 10*3/uL Immature Gran # 0.12 H (0.00-0.04) X 10*3/uL Neutrophils # 8.05 H (1.80-7.70) X 10*3/uL Eosinophils # 0.50 H (0.04-0.35) X 10*3/uL Microbiology - Last 24 Hours (Table) 07/05/20 22:16 Blood Culture - Final Blood No Growth after 144 hours 07/05/20 22:16 Blood Culture - Final Blood No Growth after 144 hours 07/07/20 13:02 Gram Stain - Final Face Wound Culture - Final Methicillin resist S. aureus
[2020-07-12 10:11] LABS: African American GFR (CKD) 116.4 (60.0-200.0); Anion Gap 8.4 mmol/L (4.00-12.00); C Reactive Protein 7.2 mg/dL (0.0-0.8); Calcium 8.4 mg/dL (8.7-10.3); Carbon Dioxide 22.6 mmol/L (21.6-31.8); Non-African American GFR(CKD) 100.5 (60.0-200.0); Potassium 4.7 mmol/L (3.5-5.5)
[2020-07-12] MEDS: IOPAMIDOL CONTRAST (ORAL USE) VIAL PO PRN ×2 (10:24→11:12)
--- NOTE | 2020-07-12 11:04 | P.PN ---
<Alexandria Harley - Last Filed: 07/12/20 10:58> Subjective Progress Note Date: 07/12/20 CHIEF COMPLAINT: Pneumoperitoneum HISTORY OF PRESENT ILLNESS: Patient is status post exploratory laparotomy, sigmoid colectomy and end colostomy for perforated sigmoid diverticulitis and umbilical hernia. Patient is complaining of abdominal pain in the right lower quadrant. She reports having persistent pain there. The pain is not new. She has had no further nausea or vomiting. Her ostomy is functioning. Her temp this morning was 99. She is requiring 2 L of oxygen at 92%. Her WBC is down to 11.47. She is tolerating a low fiber diet. PHYSICAL EXAM: VITAL SIGNS: Reviewed. GENERAL: Well-developed in no acute distress. HEENT: No sclera icterus. Extraocular movements grossly intact. Moist buccal mucosa. Head is atraumatic, normocephalic. ABDOMEN: Soft. Nondistended. Mild tenderness with palpation in the right lower quadrant. Ostomy beefy-red. Patient has new bag in place. Dressing minimal blood saturation at the distal area of dressing NEUROLOGIC: Alert and oriented. Cranial nerves II through XII grossly intact. ASSESSMENT: 1. 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 Signing provider agrees with the documented findings, assessment, and plan of care. Objective - Vital Signs Vital signs: Vital Signs Temp 99.0 F 07/12/20 08:00 Pulse 87 07/12/20 08:00 Resp 18 07/12/20 08:00 BP 134/80 07/12/20 08:00 Pulse Ox 92 L 07/12/20 08:00 Intake & Output 07/11/20 07/12/20 07/12/20 18:59 06:59 18:59 Intake Total 400 Balance 400 Weight 81.647 kg Intake: Oral 400 Other: Voiding Method Toilet Toilet Toilet - Labs CBC & Chem 7: 07/12/20 06:10 07/12/20 06:10 Labs: Abnormal Lab Results - Last 24 Hours (Table) 07/12/20 07/12/20 Range/Units 06:10 06:10 WBC 11.47 H (4.50-10.00) X 10*3/uL Immature Gran # 0.12 H (0.00-0.04) X 10*3/uL Neutrophils # 8.05 H (1.80-7.70) X 10*3/uL Eosinophils # 0.50 H (0.04-0.35) X 10*3/uL Calcium 8.4 L (8.7-10.3) mg/dL C-Reactive Protein 7.2 H (0.0-0.8) mg/dL Microbiology - Last 24 Hours (Table) 07/05/20 22:16 Blood Culture - Final Blood No Growth after 144 hours 07/05/20 22:16 Blood Culture - Final Blood No Growth after 144 hours 07/07/20 13:02 Gram Stain - Final Face Wound Culture - Final Methicillin resist S. aureus <Milind Lebron - Last Filed: 07/12/20 15:42> Subjective As above. Patient states she has been having pain right lower quadrant when getting up from bed or ambulating. She had not described this pain to me until today. CAT scan was obtained. Films reviewed. Both intraoperatively and again on this CAT scan patient does have moderate cecal stool burden. Wall of the colon appears fairly normal. White blood cell count remains normal. Will begin magnesium citrate. Continue diet as tolerated. Possible discharge tomorrow. Objective - Vital Signs Vital signs: Vital Signs Temp 98.6 F 07/12/20 13:00 Pulse 94 07/12/20 13:00 Resp 18 07/12/20 13:00 BP 159/91 07/12/20 13:00 Pulse Ox 94 L 07/12/20 13:00 Intake & Output 07/11/20 07/12/20 07/12/20 18:59 06:59 18:59 Intake Total 400 Balance 400 Weight 81.647 kg Intake: Oral 400 Other: Voiding Method Toilet Toilet Toilet - Labs CBC & Chem 7: 07/12/20 06:10 07/12/20 06:10 Labs: Abnormal Lab Results - Last 24 Hours (Table) 07/12/20 07/12/20 Range/Units 06:10 06:10 WBC 11.47 H (4.50-10.00) X 10*3/uL Immature Gran # 0.12 H (0.00-0.04) X 10*3/uL Neutrophils # 8.05 H (1.80-7.70) X 10*3/uL Eosinophils # 0.50 H (0.04-0.35) X 10*3/uL Calcium 8.4 L (8.7-10.3) mg/dL C-Reactive Protein 7.2 H (0.0-0.8) mg/dL Microbiology - Last 24 Hours (Table) 07/05/20 22:16 Blood Culture - Final Blood No Growth after 144 hours 07/05/20 22:16 Blood Culture - Final Blood No Growth after 144 hours Assessment and Plan (1) Perforated bowel Current Visit: Yes Status: Acute Code(s): K63.1 - PERFORATION OF INTESTINE (NONTRAUMATIC) SNOMED Code(s): 88038681
[2020-07-12] MEDS: NYSTATIN 100,000 UNIT/ML SUSP 500,000 UNIT/5 ML CUP PO SCH ×3 (12:25→23:33)
[2020-07-12] MEDS: BENZOCAINE/MENTHOL LOZENG 1 EACH LOZENGE MUCOUS MEM PRN ×2 (12:27→21:19)
--- NOTE | 2020-07-12 12:30 | CT ---
EXAMINATION TYPE: CT abdomen pelvis w con DATE OF EXAM: 07/12/2020 HISTORY: Generalized and RLQ pain. Post Op CT DLP: 1108.5mGycm Automated Exposure Control for Dose Reduction was Utilized. CONTRAST: CT scan of the abdomen and pelvis is performed with oral and with IV Contrast, patient injected with 100 mL of Isovue 300. COMPARISON: CT a/p dated 07/05/2020 and 04/29/2018. FINDINGS: LUNG BASES: Tiny right pleural effusion on current study. Mild to moderate bibasilar linear atelectas is. LIVER/GB: Visualized liver is markedly hypodense consistent with diffuse fatty infiltration. PANCREAS: No significant abnormality is seen. SPLEEN: No significant abnormality is seen. ADRENALS: No significant abnormality is seen. KIDNEYS: There is stable 5 to 6 mm nonobstructing calculus upper to mid pole level left kidney axial image 40 redemonstrated. No hydronephrosis. Air-fluid level in bladder consistent product of recent c atheterization. BOWEL: Oral contrast only extends into small bowel loops throughout the abdomen. Some nondistended an d prominent scattered small bowel loops. There is moderate fecal thrombus in the right colon with low lying cecum redemonstrated. There is nondistended left colon with diverticula. There is no left-side d colostomy. Remnant sigmoid rectal polyps with diverticula. Normal contrast-filled appendix. UTERUS/ADNEXA: Uterus surgically absent. Trace free fluid in pelvis axial image 83 on current study. LYMPH NODES: No greater than 1cm abdominal or pelvic lymph nodes are appreciated. OSSEOUS STRUCTURES: No significant abnormality is seen. OTHER: No significant additional abnormality is seen. IMPRESSION: Interval surgery with new left sided colostomy. Some prominence of bowel loops, suspect p ostoperative ileus. Persistent moderate right-sided colonic fecal stasis similar to prior.
--- NOTE | 2020-07-12 13:02 | P.PN ---
Progress Note - Text Progress Note Date: 07/12/20 HISTORY OF PRESENT ILLNESS This is a 59-year-old female patient of Dr. Cisneros with past medical history significant for hypertension and hypertensive cardiovascular disease with left ventricular hypertrophy, osteoarthritis, gastroesophageal reflux disease, diverticulosis, rheumatoid arthritis diagnosed in 2005 on Enbrel and followed by Dr. Goldman. Patient was hospitalized July 03 to July 05 for sepsis related to facial cellulitis and an immunocompromised host. Patient was treated with vancomycin with improvement and was discharged home on daptomycin to continue for 10 days at [facility]. Tired to discharge, patient complained of mild generalized discomfort in the right side of her abdomen which was thought to be related to constipation. Patient states that her abdominal pain worsened on the right side with radiation to the back. It was worse with deep inspiration. Patient came back to the emergency center for evaluation. CAT scan of the pelvis showed massive free air, more free air in the upper abdomen, diverticulosis sigmoid colon did not show definite inflammatory changes. Some constipation was appreciated. Patient was admitted to Dr. Lebron and went for perforated sigmoid diverticulitis, umbilical hernia status post exploratory laparotomy, sigmoid colectomy and end colostomy. Patient is seen on the [facility] floor. Her pain is currently controlled. 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 She denies having any chest pain. CTA of the chest ordered which was negative for acute pulmonary embolism. Moderate emphysematous change with atelectatic changes in the lower lungs. No suspicious focal infiltrate. Noted that patient's facial cellulitis is significantly improved since last seen. 2/4: Patient had difficulty with postop nausea and vomiting and continues to improve. She does complain of pain in the right lower quadrant that is quite severe especially with any movement. She is currently tolerating a low fiber. She has output ileostomy and has worked with the ostomy nurse. Patient has been afebrile, heart rate 91, blood pressure 120/71, pulse ox 93% on room air. WBC 11.4, hemoglobin 12.5. He is currently covered with Rocephin and Flagyl per Dr. Lewis. Patient is also on daptomycin for the chin abscess/cellulitis. Patient is complaining of sore throat when she swallows. Nystatin will be added. PHYSICAL EXAMINATION Gen: This is a 59-year-old female. She is resting in bed and appears to be in no acute distress. HEENT: Head is atraumatic, normocephalic. Pupils equal, round. Sclerae is anicteric. Patient has small wound to the right lower chin. No drainage. Significantly decreased erythema and edema. NECK: Supple. No JVD. No lymphadenopathy. No thyromegaly. No stridor noted LUNGS: Clear to auscultation. No wheezes or rhonchi. No intercostal retractions. HEART: Regular rate and rhythm. No murmur. ABDOMEN: Mild distention. Dressing on midline incision. Ostomy on the left of the abdomen with pink stoma, brown stool and gas and colostomy bag. EXTREMITIES: No pedal edema. No calf tenderness. NEUROLOGICAL: Patient is awake, alert and oriented x3. Cranial nerves 2 through 12 are grossly intact. ASSESSMENT Sepsis and pneumoperitoneum secondary to perforated diverticulitis status post exploratory laparotomy, sigmoid colectomy and end colostomy Recent hospitalization for sepsis secondary to facial cellulitis resolving Rheumatoid arthritis Possible thrush/esophagitis PLAN Continue daptomycin Continue ceftriaxone and Flagyl Start nystatin swish and swallow 4 times daily Continue supportive care Plan for oral antibiotics at time of discharge The above dictated assessment and findings were discussed with Dr. Lewis. The impression and plan of care have been directed as dictated. Renita Ornelas nurse practitioner acting as scribe for Dr. Lewis.
[2020-07-12] MEDS: DAPTOmycin 500 MG in SODIUM CHLORIDE 0.9% 50 ML IVPB SCH (14:29)
[2020-07-12] MEDS ORDERED: MAGNESIUM CITRATE 296 ML BOTTLE PO ONE (15:41)
[2020-07-12] MEDS: ALPRAZolam 0.5 MG TAB PO PRN (21:19)
[2020-07-13] MEDS: SODIUM CHLORIDE 0.9% 1,000 ML IV SCH ×4 (02:24→16:37)
[2020-07-13] MEDS: LACTULOSE 20 GM/30 ML CUP PO SCH ×2 (08:59→20:41)
[2020-07-13] MEDS: polyethylene glycoL 3350 17 GM POWD.PACK PO SCH ×2 (09:00→20:42)
[2020-07-13] MEDS: amLODIPine 5 MG TAB PO SCH (09:00)
[2020-07-13] MEDS: MUPIROCIN 2% OINT 22 GM TUBE TOPICAL SCH ×3 (09:01→21:01)
[2020-07-13] MEDS: metroNIDAZOLE 500 MG TAB PO SCH ×3 (09:01→20:59)
[2020-07-13] MEDS: NYSTATIN 100,000 UNIT/ML SUSP 500,000 UNIT/5 ML CUP PO SCH ×4 (09:02→21:00)
[2020-07-13] MEDS: PANTOPRAZOLE 40 MG/10 ML VIAL IVP SCH (09:03)
[2020-07-13] MEDS: HEPARIN SODIUM,PORCINE 5,000 UNIT/ML 1 ML VIAL SQ SCH ×3 (09:04→23:38)
[2020-07-13 09:33] LABS: Basophils # (A) 0.04 X 10*3/uL (0.00-0.10); Basophils % (A) 0.4 %; Eosinophils # (A) 0.42 X 10*3/uL (0.04-0.35); Eosinophils % (A) 4.4 %; HCT 38.8 % (37.2-46.3); HGB 12.4 g/dL (12.0-15.0); Lymphocytes # (A) 2.45 X 10*3/uL (0.90-5.00); Lymphocytes % (A) 25.6 %; MCH 29.3 pg (27.0-32.0); MCV 91.7 fL (80.0-97.0); Mean Platelet Volume 9.6 fL (9.5-12.2); Monocytes # (A) 0.82 X 10*3/uL (0.20-1.00); Monocytes % (A) 8.6 %; Neutrophils # (A) 5.75 X 10*3/uL (1.80-7.70); Neutrophils % (A) 60.1 %; Platelet Count 284 X 10*3/uL (140-440); RBC 4.23 X 10*6/uL (4.10-5.20); RDW 12.2 % (11.5-14.5); WBC 9.57 X 10*3/uL (4.50-10.00)
--- NOTE | 2020-07-13 09:34 | XR ---
EXAMINATION TYPE: XR abdomen 2V DATE OF EXAM: 07/13/2020 CLINICAL HISTORY: Right lower quadrant pain. TECHNIQUE: Supine and upright views of the abdomen are obtained. COMPARISON: CT abdomen and pelvis from one day earlier FINDINGS: Oral contrast has progressed to colonic level extending into left sided ostomy on current s tudy.. Gas seen in nondistended stomach. Overlying surgical skin pj. Slightly prominent gas-fill ed small bowel loops in the upper abdomen. Additional scattered nondistended gas-filled small bowel l oops. Left-sided pelvic phleboliths. Mild bibasilar linear scarring and/or atelectasis with persisten t tiny bilateral pleural effusions. No free air. IMPRESSION: Improved small bowel dilatation and prominence. Interval passage of contrast to colostomy . Suspect resolving postoperative ileus. Correlate clinically.
--- NOTE | 2020-07-13 11:14 | P.PN ---
Subjective Progress Note Date: 07/13/20 HISTORY OF PRESENT ILLNESS This is a 59-year-old female patient of Dr. Cisneros with past medical history significant for hypertension and hypertensive cardiovascular di sease with left ventricular hypertrophy, osteoarthritis, gastroesophageal reflux disease, diverticulosis, rheumatoid arthritis diagnosed in 2005 on Enbrel and followed by Dr. Goldman. Patient was hospitalized July 03 to July 05 for sepsis related to facial cellulitis and an immunocompromised host. Patient was treated with vancomycin with improvement and was discharged home on daptomycin to continue for 10 days at [facility]. Patient was followed by Dr. Lewis. Starting the night before, patient was complaining of some generalized discomfort in the right side of her abdomen which was thought to be related to constipation. Patient was planning to picker tender helper stool softeners but was discharged home as her abdomen was completely benign and examination. However, patient states that her abdominal pain worsened on the right side with radiation to the back. It was worse with deep inspiration. Patient came back to the emergency center for evaluation. CAT scan of the pelvis showed massive free air, more free air in the upper abdomen, diverticulosis sigmoid colon did not show definite inflam matory changes. Some constipation was appreciated. Patient was admitted to Dr. Lebron and went to [facility] for perforated sigmoid diverticulitis, umbilical hernia status post exploratory laparotomy, sigmoid colectomy and end colostomy. Patient is seen on the [facility] floor. Her pain is currently controlled. SLAT PICKLER is in place. She denies having any chest pain. Noted that she is requiring oxygen at 3 L and concern for PE. CTA of the chest ordered which was negative for acute pulmonary embolism. Moderate emphysematous change with atelectatic changes in the lower lungs. No suspicious focal infiltrate. Noted that patient's facial cellulitis is significantly improved since last seen. 07/07: Patient is on clear liquid diet today, however some nausea secondary to abdominal distention, she is bloated mainly with gas, has flat to's or gas in the colostomy bag, however there is still no stools, this is postop day #1 Maalox started, early ambulation, O2 at 2 L nasal cannula, for hypoxemia 97 at 4 L this cannula, vitals are 140-168, systolic, heart rate is under control, has amlodipine which was started today, and start hydralazine 10 every 6 when necessary for blood pressure over 160 07/08, full liquid diet today, patient still miserable secondary to postop pain, however bloating is less, no nausea, patient's seen in the recliner for today, O2 at 4 L this cannula, patient has some cough without any shortness of breath, chest x-ray to be done, and Incentive spirometry reinforced, might need Lasix, 94% on 4 L O2 2: Patient states that she has been passing gas in her ostomy. Patient is noted to have small amount of brown stool. Patient states that she had insurance last night and ever since she's had ongoing vomiting. She states she has no appetite but she tried to have some chicken broth this morning but vomited this. Patient is already on Zofran, Phenergan and Reglan for nausea and vomiting. We will add in a scopolamine patch. Patient also states that she is not using her SLAT PICKLER as she thinks that the fentanyl is causing more nausea and vomiting. We will start a small dose of [place]. She is currently on daptomycin and Zosyn. Patient is been afebrile, heart rate 86, blood pressure 121/82, pulse ox 95% on 4 L nasal cannula. WBC 14.2, hemoglobin 15, platelet count 340. Electrolytes normal, creatinine 0.8. 2/2: Patient states that the scopolamine patch work for about 6-8 hours yesterday and then around 8 PM after she ate some clear liquids and pudding she started having nausea all through the night and vomited once this morning. She is passing gas and stool in the colostomy. Harris catheter is draining adequate amount of clear sarwat urine. She is on IV antibiotics in the form of Zosyn and daptomycin. Facial cellulitis is significantly improved. Patient has been afebrile, heart rate 89, blood pressure 155/87, pulse ox 96% on 4 L nasal cannula. Repeat blood work reveals WBC 13.3, hemoglobin 13.8. Electrolytes normal, BUN 8 and creatinine 0.7. Blood sugar 116. Recommend the patient avoid using the fentanyl SLAT PICKLER and try to use [place] only. 23: Patient is off fentanyl SLAT PICKLER and nausea is significantly better. She is currently on clear liquids with crackers. She is to meet again today with ostomy nurse. Harris catheter to be removed later today. Erythema and edema to her face is significantly improved. There is a small area of dried scab and Bactroban will be added. She has been afebrile, heart rate 69, blood pressure 131/78, pulse ox 94% on 4 L nasal cannula. 2: Patient states nausea and vomiting continued to improve. She does complain of pain in the right lower quadrant that is quite severe especially with any movement. She is currently tolerating a low fiber. She has output ileostomy and has worked with the ostomy nurse. Patient has been afebrile, heart rate 91, blood pressure 120/71, pulse ox 93% on room air. WBC 11.4, hemoglobin 12.5. Antibiotics on Rocephin and Flagyl per Dr. Lewis. Patient is also on daptomycin for the chin abscess cellulitis. 07/13: CAT scan of the abdomen and pelvis yesterday revealed some prominence of bowel loops, suspect postoperative ileus. Persistent moderate right sided colonic fecal stasis. Patient was given mag citrate last night and she said all he did was cause cramps for 4 hours. She is had decreased output from her ostomy since yesterday. She complains of continued right lower quadrant pain that is not letting up. She states a binder did not help at all. Vomiting resolved. Abdominal x-rays this morning revealed improved small bowel dilatation and prominence. Interval passage of contrast to colostomy. Suspect resolving postoperative ileus. Repeat CBC normal with resolution of leukocytosis. Patient has complained of sore throat for which Dr. Lewis added nystatin for possible yeast. REVIEW OF SYSTEMS Constitutional: No fever, no chills, no night sweats. No weight change. No weakness, fatigue or lethargy. No daytime sleepiness. EENT: No headache. No blurred vision or double vision, no loss of vision. No loss of Hearing, no ringing in the ears, no dizziness. No nasal drainage or congestion. No epistaxis. Reports sore throat. Denies facial pain. Lungs: No shortness of breath, cough, no sputum production. No wheezing. Cardiovascular: No chest pain, no lower extremity edema. No palpitations. No paroxysmal nocturnal dyspnea. No orthopnea. No lightheadedness or dizziness. No syncopal episodes. Abdominal: Reports abdominal discomfort. Denies nausea, denies vomiting. No diarrhea. No constipation. No bloody or tarry stools. Denies loss of appetite. Genitourinary: No dysuria, increased frequency, urgency. No urinary retention. Musculoskeletal: No myalgias. No muscle weakness, no gait dysfunction, no frequent falls. No back pain. No neck pain. Integumentary: Mild redness to the right chin. No rash or pruritus. No unusual bruising. No change in hair or nails. Neurologic: No aphasia. No facial droop. No change in mentation. No head injury. No headache. No paralysis. No paresthesia. Psychiatric: No depression. No anxiety. No mood swings. Endocrine: No abnormal blood sugars. No weight change. No excessive sweating or thirst. No cold intolerance. PHYSICAL EXAMINATION Gen: This is a 59-year-old female. She is resting in bed and appears to be in no acute distress. HEENT: Head is atraumatic, normocephalic. Pupils equal, round. Sclerae is anict eliecer. Patient has small wound to the right lower chin. No drainage. Significantly decreased erythema and edema. NECK: Supple. No JVD. No lymphadenopathy. No thyromegaly. No stridor noted LUNGS: Clear to auscultation. No wheezes or rhonchi. No intercostal retractions. HEART: Regular rate and rhythm. No murmur. ABDOMEN: Mild distention. Dressing on midline incision. Ostomy on the left of the abdomen with pink stoma, brown stool and gas and colostomy bag. EXTREMITIES: No pedal edema. No calf tenderness. NEUROLOGICAL: Patient is awake, alert and oriented x3. Cranial nerves 2 through 12 are grossly intact. ASSESSMENT AND PLAN 1. Sepsis and pneumoperitoneum secondary to perforated diverticulitis, status post exploratory laparotomy, sigmoid colectomy and end colostomy, postop day #7. SLAT PICKLER has been discontinued. Continue [place] for pain. Continue Rocephin and Flagyl. Consult with infectious disease. Currently on low fiber diet. 2. Recent hospitalization for sepsis secondary to facial cellulitis in an immunocompromised host. Enbrel and prednisone on hold. Continue daptomycin, consult with infectious disease appreciated. 2. Hypertension, hypertensive cardiovascular disease. Continue Norvasc 5 mg daily. Hydralazine IV push as needed. 3. Rheumatoid arthritis under the care of Dr. Goldman. Enbrel and prednisone on hold. 4. Gastroesophageal reflux disease. Continue Protonix 40 mg daily. 5. Generalized osteoarthritis, stable. 6. DVT prophylaxis. Heparin subcu. 7. Hypoxemia without acute respiratory failure. Negative for pulmonary embolism. 8. Possible postop ileus, resolving. DISCHARGE PLAN Home. Do not expect need for IV antibiotics. Impression and plan of care have been directed as dictated by the signing physician. Renita Ornelas nurse practitioner acting as scribe for signing physician. Objective - Vital Signs Vital signs: Vital Signs Temp 98.1 F 07/13/20 07:22 Pulse 90 07/13/20 07:22 Resp 14 07/13/20 07:22 BP 144/87 07/13/20 07:22 Pulse Ox 91 L 07/13/20 07:22 Intake & Output 07/12/20 07/13/20 07/13/20 18:59 06:59 18:59 Intake Total 600 Balance 600 Intake: Oral 600 Other: Voiding Method Toilet Toilet # Voids 2 - Labs CBC & Chem 7: 07/13/20 05:45 07/12/20 06:10 Labs: Abnormal Lab Results - Last 24 Hours (Table) 07/12/20 Range/Units 06:10 Calcium 8.4 L (8.7-10.3) mg/dL C-Reactive Protein 7.2 H (0.0-0.8) mg/dL
--- NOTE | 2020-07-13 13:03 | P.PN ---
<CherriAlexandria - Last Filed: 07/13/20 12:56> Subjective Progress Note Date: 07/13/20 CHIEF COMPLAINT: Pneumoperitoneum HISTORY OF PRESENT ILLNESS: Patient is status post exploratory laparotomy, sigmoid colectomy and end colostomy for perforated sigmoid diverticulitis and umbilical hernia. Patient had been complaining of right lower quadrant abdominal pain and low output through her ostomy. Computed tomography scan had shown persistent moderate right sided colonic fecal stasis. She was given mag of citrate. And patient did not feel well after drinking it. Medicine is also ordered lactulose and MiraLAX. During my exam patient did have a large output through her ostomy. She did report improvement in her right lower abdominal pain. She still has some pain with movement. She denies any nausea or vomiting . She is currently on a low fiber diet. Afebrile. WBC normalized at 9.57 Abdominal x-ray shows improved small bowel dilation and prominence. Interval passage of contrast to colostomy. Suspect resolving postoperative ileus. PHYSICAL EXAM: VITAL SIGNS: Reviewed. GENERAL: Well-developed in no acute distress. HEENT: No sclera icterus. Extraocular movements grossly intact. Moist buccal mucosa. Head is atraumatic, normocephalic. ABDOMEN: Soft. Nondistended. Nontender stool present in colostomy bag. Dressing changed incision site clean and dry. NEUROLOGIC: Alert and oriented. Cranial nerves II through XII grossly intact. ASSESSMENT: 1. Perforated sigmoid diverticulitis and all umbilical hernia status post exploratory laparotomy, sigmoid colectomy and end colostomy 2. Expected postoperative ileus resolving PLAN: -Continue supportive care -Incisional dressing and sophie changed -Continue IV antibiotics -Encouraged patient to use incentive spirometer -Encouraged patient to increase activity -GI prophylaxis Pepcid and DVT prophylaxis subcu heparin Physician Call Person note has been reviewed by physician. Signing provider agrees with the documented findings, assessment, and plan of care. Objective - Vital Signs Vital signs: Vital Signs Temp 98.0 F 07/13/20 12:52 Pulse 91 07/13/20 12:52 Resp 14 07/13/20 12:52 BP 155/89 07/13/20 12:52 Pulse Ox 92 L 07/13/20 12:52 Intake & Output 07/12/20 07/13/20 07/13/20 18:59 06:59 18:59 Intake Total 600 Output Total 250 Balance 600 -250 Intake: Oral 600 Output: Stool 250 Other: Voiding Method Toilet Toilet Toilet # Voids 2 - Labs CBC & Chem 7: 07/13/20 05:45 07/12/20 06:10 Labs: Abnormal Lab Results - Last 24 Hours (Table) 07/13/20 Range/Units 05:45 Immature Gran # 0.09 H (0.00-0.04) X 10*3/uL Eosinophils # 0.42 H (0.04-0.35) X 10*3/uL <Milind Lebron - Last Filed: 07/13/20 15:43> Subjective As above. Patient still complaining of right lower quadrant abdominal pain with movement. No pain when in bed. Tolerating diet. Increased ostomy function. Decreased constipation on flat plate. Continue stool softeners. Continue diet as tolerated. Monitor discomfort. Objective - Vital Signs Vital signs: Vital Signs Temp 98.0 F 07/13/20 12:52 Pulse 91 07/13/20 12:52 Resp 14 07/13/20 12:52 BP 155/89 07/13/20 12:52 Pulse Ox 92 L 07/13/20 12:52 Intake & Output 07/12/20 07/13/20 07/13/20 18:59 06:59 18:59 Intake Total 600 Output Total 250 Balance 600 -250 Intake: Oral 600 Output: Stool 250 Other: Voiding Method Toilet Toilet Toilet # Voids 2 - Labs CBC & Chem 7: 07/13/20 05:45 07/12/20 06:10 Labs: Abnormal Lab Results - Last 24 Hours (Table) 07/13/20 Range/Units 05:45 Immature Gran # 0.09 H (0.00-0.04) X 10*3/uL Eosinophils # 0.42 H (0.04-0.35) X 10*3/uL Assessment and Plan (1) Perforated bowel Current Visit: Yes Status: Acute Code(s): K63.1 - PERFORATION OF INTESTINE (NONTRAUMATIC) SNOMED Code(s): 11811682
--- NOTE | 2020-07-13 13:08 | P.PN ---
Progress Note - Text Progress Note Date: 07/13/20 HISTORY OF PRESENT ILLNESS This is a 59-year-old female patient of Dr. Cisneros with past medical history significant for hypertension and hypertensive cardiovascular disease with left ventricular hypertrophy, osteoarthritis, gastroesophageal reflux disease, diverticulosis, rheumatoid arthritis diagnosed in 2005 on Enbrel and followed by Dr. Goldman. Patient was hospitalized July 03 to July 05 for sepsis related to facial cellulitis and an immunocompromised host. Patient was treated with vancomycin with improvement and was discharged home on daptomycin to continue for 10 days at [facility]. Tired to discharge, patient complained of mild generalized discomfort in the right side of her abdomen which was thought to be related to constipation. Patient states that her abdominal pain worsened on the right side with radiation to the back. It was worse with deep inspiration. Patient came back to the emergency center for evaluation. CAT scan of the pelvis showed massive free air, more free air in the upper abdomen, diverticulosis sigmoid colon did not show definite inflammatory changes. Some constipation was appreciated. Patient was admitted to Dr. Lebron and went for perforated sigmoid diverticulitis, umbilical hernia status post exploratory laparotomy, sigmoid colectomy and end colostomy. Patient is [facility] the [facility] floor. Her pain is currently controlled. AMMUNITION COMPONENTS INSPECTOR is in place. She denies having any chest pain. CTA of the chest ordered which was negative for acute pulmonary embolism. Moderate emphysematous change with atelectatic changes in the lower lungs. No suspicious focal infiltrate. Noted that patient's facial cellulitis is significantly improved since last seen. 2/4: Patient had difficulty with postop nausea and vomiting and continues to improve. She does complain of pain in the right lower quadrant that is quite severe especially with any movement. She is currently tolerating a low fiber. She has output ileostomy and has worked with the ostomy nurse. Patient has been afebrile, heart rate 91, blood pressure 120/71, pulse ox 93% on room air. WBC 11.4, hemoglobin 12.5. He is currently covered with Rocephin and Flagyl per Dr. Lewis. Patient is also on daptomycin for the chin abscess/cellulitis. Patient is complaining of sore throat when she swallows. Nystatin will be added. 2/5: CAT scan of the abdomen and pelvis yesterday revealed some prominence of bowel loops, suspect postoperative ileus. Persistent moderate right sided colonic fecal stasis. Patient was given mag citrate last night and she said all he did was cause cramps for 4 hours. She is had decreased output from her ostomy since yesterday. She complains of continued right lower quadrant pain that is not letting up. She states a binder did not help at all. Vomiting resolved. Abdominal x-rays this morning revealed improved small bowel dilatation and prominence. Interval passage of contrast to colostomy. Suspect resolving postoperative ileus. Repeat CBC normal with resolution of leukocytosis. PHYSICAL EXAMINATION Gen: This is a 59-year-old female. She is resting in bed and appears to be in no acute distress. HEENT: Head is atraumatic, normocephalic. Pupils equal, round. Sclerae is anicteric. Patient has small wound to the right lower chin. No drainage. Significantly decreased erythema and edema. NECK: Supple. No JVD. No lymphadenopathy. No thyromegaly. No stridor noted LUNGS: Clear to auscultation. No wheezes or rhonchi. No intercostal retractions. HEART: Regular rate and rhythm. No murmur. ABDOMEN: no distention. Dressing on midline incision. Ostomy on the left of the abdomen with pink stoma, brown stool and gas and colostomy bag. EXTREMITIES: No pedal edema. No calf tenderness. NEUROLOGICAL: Patient is awake, alert and oriented x3. Cranial nerves 2 through 12 are grossly intact. ASSESSMENT Sepsis and pneumoperitoneum secondary to perforated diverticulitis status post exploratory laparotomy, sigmoid colectomy and end colostomy Recent hospitalization for sepsis secondary to facial cellulitis resolving Rheumatoid arthritis Possible thrush/esophagitis PLAN Continue daptomycin Continue ceftriaxone and Flagyl Continue nystatin swish and swallow 4 times daily Continue supportive care Plan for oral antibiotics at time of discharge The above dictated assessment and findings were discussed with Dr. Lewis. The impression and plan of care have been directed as dictated. Renita Ornelas nurse practitioner acting as scribe for Dr. Lewis.
[2020-07-13] MEDS: DAPTOmycin 500 MG in SODIUM CHLORIDE 0.9% 50 ML IVPB SCH (14:16)
[2020-07-13] MEDS ORDERED: IBUPROFEN 400 MG TAB PO PRN (15:44)
[2020-07-13] MEDS ORDERED: ACETAMINOPHEN TAB 325 MG TAB PO PRN (15:44)
[2020-07-13] MEDS: BENZOCAINE/MENTHOL LOZENG 1 EACH LOZENGE MUCOUS MEM PRN (18:12)
[2020-07-13] MEDS: HYDROcodone/APAP 5-325MG 1 EACH TAB PO PRN (21:00)
[2020-07-13] MEDS: ALPRAZolam 0.5 MG TAB PO PRN (21:55)
[2020-07-14] MEDS: SODIUM CHLORIDE 0.9% 1,000 ML IV SCH ×6 (01:10→21:38)
[2020-07-14] MEDS ORDERED: SCOPOLAMINE 1.5MG/72HR PATCH TRANSDERM ONE (04:00)
[2020-07-14] MEDS: PANTOPRAZOLE 40 MG/10 ML VIAL IVP SCH (08:03)
[2020-07-14] MEDS: HEPARIN SODIUM,PORCINE 5,000 UNIT/ML 1 ML VIAL SQ SCH ×3 (08:03→22:16)
[2020-07-14] MEDS: MUPIROCIN 2% OINT 22 GM TUBE TOPICAL SCH ×3 (08:04→21:38)
[2020-07-14] MEDS: LACTULOSE 20 GM/30 ML CUP PO SCH ×2 (08:04→21:20)
[2020-07-14] MEDS: NYSTATIN 100,000 UNIT/ML SUSP 500,000 UNIT/5 ML CUP PO SCH ×4 (08:04→21:38)
[2020-07-14] MEDS: amLODIPine 5 MG TAB PO SCH (08:04)
[2020-07-14] MEDS: metroNIDAZOLE 500 MG TAB PO SCH ×3 (08:04→21:38)
[2020-07-14] MEDS: polyethylene glycoL 3350 17 GM POWD.PACK PO SCH (08:04)
[2020-07-14] MEDS: ALPRAZolam 0.5 MG TAB PO PRN ×2 (08:12→21:37)
[2020-07-14] MEDS ORDERED: polyethylene glycoL 3350 17 GM POWD.PACK PO PRN (09:00)
--- NOTE | 2020-07-14 12:07 | P.PN ---
Subjective Progress Note Date: 07/14/20 This is a 59-year-old female patient of Dr. Cisneros with past medical history significant for hypertension and hypertensive cardiovascular disease with left ventricular hypertrophy, osteoarthritis, gastroesophageal reflux disease, diverticulosis, rheumatoid arthritis diagnosed in 2005 on Enbrel and followed by Dr. Goldman. Patient was hospitalized July 03 to July 05 for sepsis related to facial cellulitis and an immunocompromised host. Patient was treated with vancomycin with improvement and was discharged home on daptomycin to continue for 10 days at [facility]. Patient was followed by Dr. Lewis. Starting the night before, patient was complaining of some generalized discomfort in the right side of her abdomen which was thought to be related to constipation. Patient was planning to pecan picker stool softeners but was discharged home as her abdomen was completely benign and examination. However, patient states that her abdominal pain worsened on the right side with radiation to the back. It was worse with deep inspiration. Patient came back to the emergency center for evaluation. CAT scan of the pelvis showed massive free air, more free air in the upper abdomen, diverticulosis sigmoid colon did not show definite inflammatory changes. Some constipation was appreciated. Patient was admitted to Dr. Lebron and went to [facility] for perforated sigmoid diverticulitis, umbilical hernia status post exploratory laparotomy, sigmoid colectomy and end colostomy. Patient is seen on the [facility] floor. Her pain is currently controlled. OIL DISTRIBUTOR TENDER is in place. She denies having any chest pain. Noted that she is requiring oxygen at 3 L and concern for PE. CTA of the chest ordered which was negative for acute pulmonary embolism. Moderate emphysematous change with atelectatic changes in the lower lungs. No suspicious focal infiltrate. Noted that patient's facial cellulitis is significantly improved since last seen. 07/07: Patient is on clear liquid diet today, however some nausea secondary to abdominal distention, she is bloated mainly with gas, has flat to's or gas in the colostomy bag, however there is still no stools, this is postop day #1 Maalox started, early ambulation, O2 at 2 L nasal cannula, for hypoxemia 97 at 4 L this cannula, vitals are 140-168, systolic, heart rate is under control, has amlodipine which was started today, and start hydralazine 10 every 6 when necessary for blood pressure over 160 07/08, full liquid diet today, patient still miserable secondary to postop pain, however bloating is less, no nausea, patient's seen in the recliner for today, O2 at 4 L this cannula, patient has some cough without any shortness of breath, chest x-ray to be done, and Incentive spirometry reinforced, might need Lasix, 94% on 4 L O2 2/1: Patient states that she has been passing gas in her ostomy. Patient is noted to have small amount of brown stool. Patient states that she had insurance last night and ever since she's had ongoing vomiting. She states she has no appetite but she tried to have some chicken broth this morning but vomited this. Patient is already on Zofran, Phenergan and Reglan for nausea and vomiting. We will add in a scopolamine patch. Patient also states that she is not using her OIL DISTRIBUTOR TENDER as she thinks that the fentanyl is causing more nausea and vomiting. We will start a small dose of [place]. She is currently on daptomycin and Zosyn. Patient is been afebrile, heart rate 86, blood pressure 121/82, pulse ox 95% on 4 L nasal cannula. WBC 14.2, hemoglobin 15, platelet count 340. Electrolytes normal, creatinine 0.8. 2/2: Patient states that the scopolamine patch work for about 6-8 hours yesterday and then around 8 PM after she ate some clear liquids and pudding she started having nausea all through the night and vomited once this morning. She is passing gas and stool in the colostomy. Harris catheter is draining adequate amount of clear sarwat urine. She is on IV antibiotics in the form of Zosyn and daptomycin. Facial cellulitis is significantly improved. Patient has been afebrile, heart rate 89, blood pressure 155/87, pulse ox 96% on 4 L nasal cannula. Repeat blood work reveals WBC 13.3, hemoglobin 13.8. Electrolytes normal, BUN 8 and creatinine 0.7. Blood sugar 116. Recommend the patient avoid using the fentanyl OIL DISTRIBUTOR TENDER and try to use [place] only. 2/3: Patient is off fentanyl OIL DISTRIBUTOR TENDER and nausea is significantly better. She is currently on clear liquids with crackers. She is to meet again today with os jerry nurse. Harris catheter to be removed later today. Erythema and edema to her face is significantly improved. There is a small area of dried scab and Bactroban will be added. She has been afebrile, heart rate 69, blood pressure 131/78, pulse ox 94% on 4 L nasal cannula. 2: Patient states nausea and vomiting continued to improve. She does complain of pain in the right lower quadrant that is quite severe especially with any movement. She is currently tolerating a low fiber. She has output ileostomy and has worked with the ostomy nurse. Patient has been afebrile, heart rate 91, blood pressure 120/71, pulse ox 93% on room air. WBC 11.4, hemoglobin 12.5. Antibiotics on Rocephin and Flagyl per Dr. Lewis. Patient is also on daptomycin for the chin abscess cellulitis. 07/13: CAT scan of the abdomen and pelvis yesterday revealed some prominence of bowel loops, suspect postoperative ileus. Persistent moderate right sided colonic fecal stasis. Patient was given mag citrate last night and she said all he did was cause cramps for 4 hours. She is had decreased output from her ost hermann since yesterday. She complains of continued right lower quadrant pain that is not letting up. She states a binder did not help at all. Vomiting resolved. Abdominal x-rays this morning revealed improved small bowel dilatation and prominence. Interval passage of contrast to colostomy. Suspect resolving postoperative ileus. Repeat CBC normal with resolution of leukocytosis. Patient has complained of sore throat for which Dr. Lewis added nystatin for possible yeast. 07/14: Patient had positive output in her colostomy yesterday. Today she is feeling nauseated and has lack of appetite. She is worried that she is going backwards instead of forward. She no longer has any vomiting. At this time she has scopolamine patch in place. Patient does not want to have any insurance she feels that'll make her sick and. She will try to chocolate and sugar today. Patient did receive a Xanax today which seems to have decrease her anxiety. Patient states that she will sleep for up and then attempt to ambulate throughout the room. Patient is afebrile, pulse rate 97, blood pressure 149/83, pulse ox 94% on room air. WBC9.5, hemoglobin 12.4 REVIEW OF SYSTEMS Constitutional: No fever, no chills, no night sweats. No weight change. No weakness, fatigue or lethargy. No daytime sleepiness. EENT: No headache. No blurred vision or double vision, no loss of vision. No loss of Hearing, no ringing in the ears, no dizziness. No nasal drainage or congestion. No epistaxis. Reports sore throat. Denies facial pain. Lungs: No shortness of breath, cough, no sputum production. No wheezing. Cardiovascular: No chest pain, no lower extremity edema. No palpitations. No paroxysmal nocturnal dyspnea. No orthopnea. No lightheadedness or dizziness. No syncopal episodes. Abdominal: Reports abdominal discomfort. Denies nausea, denies vomiting. No diarrhea. No constipation. No bloody or tarry stools. Denies loss of appetite. Genitourinary: No dysuria, increased frequency, urgency. No urinary retention. Musculoskeletal: No myalgias. No muscle weakness, no gait dysfunction, no frequent falls. No back pain. No neck pain. Integumentary: Mild redness to the right chin. No rash or pruritus. No unusual bruising. No change in hair or nails. Neurologic: No aphasia. No facial droop. No change in mentation. No head injury. No headache. No paralysis. No paresthesia. Psychiatric: No depression. No anxiety. No mood swings. Endocrine: No abnormal blood sugars. No weight change. No excessive sweating or thirst. No cold intolerance. PHYSICAL EXAMINATION Gen: This is a 59-year-old female. She is resting in bed and appears to be in no acute distress. HEENT: Head is atraumatic, normocephalic. Pupils equal, round. Sclerae is anicteric. Patient has small wound to the right lower chin. No drainage. Significantly decreased erythema and edema. NECK: Supple. No JVD. No lymphadenopathy. No thyromegaly. No stridor noted LUNGS: Clear to auscultation. No wheezes or rhonchi. No intercostal retractions. HEART: Regular rate and rhythm. No murmur. ABDOMEN: Mild distention. Dressing on midline incision. Ostomy on the left of the abdomen with pink stoma, brown stool and gas and colostomy bag. EXTREMITIES: No pedal edema. No calf tenderness. NEUROLOGICAL: Patient is awake, alert and oriented x3. Cranial nerves 2 through 12 are grossly intact. ASSESSMENT AND PLAN 1. Sepsis and pneumoperitoneum secondary to perforated diverticulitis, status post exploratory laparotomy, sigmoid colectomy and end colostomy, postop day #8. OIL DISTRIBUTOR TENDER has been discontinued. Continue [place] for pain. Continue Rocephin and Flagyl. Consult with infectious disease. Currently on low fiber diet. Dis cussion to move antibiotics to oral. 2. Recent hospitalization for sepsis secondary to facial cellulitis in an immunocompromised host. Enbrel and prednisone on hold. Continue daptomycin, consult with infectious disease appreciated. 2. Hypertension, hypertensive cardiovascular disease. Continue Norvasc 5 mg daily. Hydralazine IV push as needed. 3. Rheumatoid arthritis under the care of Dr. Goldman. Enbrel and prednisone on hold. 4. Gastroesophageal reflux disease. Continue Protonix 40 mg daily. 5. Generalized osteoarthritis, stable. 6. DVT prophylaxis. Heparin subcu. 7. Hypoxemia without acute respiratory failure. Negative for pulmonary embolism. 8. Possible postop ileus, resolving. DISCHARGE PLAN Home. Do not expect need for IV antibiotics. Impression and plan of care have been directed as dictated by the signing physician. Sarah Aguilar nurse practitioner acting as scribe for signing physician. Objective - Vital Signs Vital signs: Vital Signs Temp 97.8 F 07/14/20 01:57 Pulse 97 07/14/20 01:57 Resp 16 07/14/20 01:57 BP 149/83 07/14/20 01:57 Pulse Ox 94 L 07/14/20 01:57 Intake & Output 07/13/20 07/14/20 07/14/20 18:59 06:59 18:59 Output Total 550 900 Balance -550 -900 Output: Stool 550 900 Other: Voiding Method Toilet # Voids 2 - Labs CBC & Chem 7: 07/13/20 05:45 07/12/20 06:10
--- NOTE | 2020-07-14 14:26 | P.PN ---
Subjective Progress Note Date: 07/14/20 CHIEF COMPLAINT: Perforated diverticulitis HISTORY OF PRESENT ILLNESS: The patient is a 59-year-old female status post open descending colostomy with Arteaga's, 07/06/2020. She has chronic constipation with multiple laxatives given for output. She now has output. She had nausea this morning with emesis last night. She reports pulling sensation along her incision when she gets up. She has had troubles with her abdominal binder. ROS: No fevers or chills. No shortness of breath. No chest pain. PHYSICAL EXAM: VITAL SIGNS: Reviewed CONSTITUTIONAL: Well developed and in no acute distress. EYES: Conjuctivae without sclera icterus. Extraocular movements grossly intact. HEAD, EARS, NOSE, THROAT: Moist buccal mucosa. Head is atraumatic, normocephalic. Hears conversational speech. No nasal drainage. NECK: No thyroidomegaly. RESPIRATORY: Non-labored respirations and equal bilateral excursions. CARDIOVASCULAR: Palpable 2+ radial pulses. ABDOMEN: Dressing intact. No peritonitis. Ostomy functioning. MUSCULOSKELETAL: No gross deformity of the lower extremities noted. No clubbing. No cyanosis. SKIN: Good skin turgor. Well perfused. NEUROLOGIC: Cranial nerves II through XII grossly intact. No focal or lateralizing signs. PSYCH: Appropriate affect. Alert and oriented to person, place and time. CLINICAL LABS: White blood cell count normal from 11.47-9.57. Hemoglobin stable 12.4. STUDIES: CT of the abdomen and pelvis on 07/12/2020 independently reviewed demonstrated moderate stool along the ascending colon and cecum. Transverse and descending colon decompressed. No evidence of free air. Postsurgical changes along the abdominal wall identified. This is my independent interpretation. ASSESSMENT: 1. Perforated diverticulitis status post descending colostomy creation PLAN: 1. Will try abdominal binder 2. With her nausea and abdominal pain, hydration described. 3. Continue hospitalization. 4. Continur IV antibiotics. Objective - Vital Signs Vital signs: Vital Signs Temp 97.8 F 07/14/20 01:57 Pulse 97 07/14/20 01:57 Resp 16 07/14/20 01:57 BP 149/83 07/14/20 01:57 Pulse Ox 94 L 07/14/20 01:57 Intake & Output 07/13/20 07/14/20 07/14/20 18:59 06:59 18:59 Output Total 550 900 Balance -550 -900 Output: Stool 550 900 Other: Voiding Method Toilet # Voids 2 - Labs CBC & Chem 7: 07/13/20 05:45 07/12/20 06:10
--- NOTE | 2020-07-14 19:31 | PN ---
PROGRESS NOTE DATE OF SERVICE: 07/14/2020 REASON FOR FOLLOWUP: 1. Chin abscess. 2. Perforated diverticulitis. INTERVAL HISTORY: The patient is currently afebrile. The patient is breathing comfortably. The patient denies having any chest pain. No shortness of breath or cough. Abdominal pain has improved. No further nausea, no vomiting. PHYSICAL EXAMINATION: Her blood pressure is 144/95 with a pulse of 94, temperature 98. She is 94% on room air. General description is a middle-aged female lying in bed in no distress. HEENT examination: Chin swelling and redness has resolved. Lungs: Unlabored breathing, clear to auscultation anteriorly. Heart S1, S2. Regular rate and rhythm. Abdomen soft, no tenderness. LABS: Hemoglobin is 12.4, white count 9.57. DIAGNOSTIC IMPRESSION AND PLAN: 1. Patient with MRSA chin abscess, adequately treated, spontaneous drainage, has completed her antibiotic therapy as of yesterday. 2. Patient with perforated diverticulitis status post diverting colostomy. The patient is covered with Rocephin and Flagyl. Finish therapy with oral Ceftin and Flagyl on discharge. Continue supportive care. MMODL / IJN: [id number] /
[2020-07-14] MEDS: traMADol 50 MG TAB PO PRN (22:10)
[2020-07-15] MEDS: SODIUM CHLORIDE 0.9% 1,000 ML IV SCH ×3 (04:25→22:16)
[2020-07-15] MEDS: LACTULOSE 20 GM/30 ML CUP PO SCH ×2 (08:36→20:53)
[2020-07-15] MEDS: HEPARIN SODIUM,PORCINE 5,000 UNIT/ML 1 ML VIAL SQ SCH ×4 (08:43→23:02)
[2020-07-15] MEDS: metroNIDAZOLE 500 MG TAB PO SCH ×3 (08:43→21:03)
[2020-07-15] MEDS: PANTOPRAZOLE 40 MG/10 ML VIAL IVP SCH (08:43)
[2020-07-15] MEDS: amLODIPine 5 MG TAB PO SCH (08:43)
[2020-07-15] MEDS: MUPIROCIN 2% OINT 22 GM TUBE TOPICAL SCH ×3 (08:44→21:05)
[2020-07-15] MEDS: NYSTATIN 100,000 UNIT/ML SUSP 500,000 UNIT/5 ML CUP PO SCH ×4 (08:44→21:03)
[2020-07-15] MEDS ORDERED: polyethylene glycoL 3350 17 GM POWD.PACK PO SCH (09:00)
[2020-07-15 10:35] LABS: Basophils # (A) 0.04 X 10*3/uL (0.00-0.10); Basophils % (A) 0.5 %; Eosinophils # (A) 0.33 X 10*3/uL (0.04-0.35); HCT 39.7 % (37.2-46.3); HGB 12.9 g/dL (12.0-15.0); Lymphocytes # (A) 2.12 X 10*3/uL (0.90-5.00); Lymphocytes % (A) 25.4 %; MCH 29.5 pg (27.0-32.0); MCHC 32.5 g/dL (32.0-37.0); MCV 90.6 fL (80.0-97.0); Mean Platelet Volume 9.8 fL (9.5-12.2); Monocytes # (A) 0.65 X 10*3/uL (0.20-1.00); Monocytes % (A) 7.8 %; Neutrophils # (A) 5.15 X 10*3/uL (1.80-7.70); Neutrophils % (A) 61.6 %; Platelet Count 323 X 10*3/uL (140-440); RBC 4.38 X 10*6/uL (4.10-5.20); RDW 12.5 % (11.5-14.5); WBC 8.35 X 10*3/uL (4.50-10.00)
[2020-07-15 11:06] LABS: African American GFR (CKD) 116.4 (60.0-200.0); Albumin 3.6 g/dL (3.80-4.90); Albumin/Globulin Ratio 1.71 (1.60-3.17); Anion Gap 8.9 mmol/L (4.00-12.00); Calcium 8.4 mg/dL (8.7-10.3); Carbon Dioxide 22.1 mmol/L (21.6-31.8); Globulin 2.1 g/dL (1.6-3.3); Non-African American GFR(CKD) 100.5 (60.0-200.0); Potassium 4.4 mmol/L (3.5-5.5); Total Bilirubin 0.3 mg/dL (0.2-1.2); Total Protein 5.7 g/dL (6.2-8.2)
--- NOTE | 2020-07-15 11:28 | P.PN ---
Subjective Progress Note Date: 07/15/20 This is a 59-year-old female patient of Dr. Cisneros with past medical history significant for hypertension and hypertensive cardiovascular disease with left ventricular hypertrophy, osteoarthritis, gastroesophageal reflux disease, diverticulosis, rheumatoid arthritis diagnosed in 2005 on Enbrel and followed by Dr. Goldman. Patient was hospitalized July 03 to July 05 for sepsis related to facial cellulitis and an immunocompromised host. Patient was treated with vancomycin with improvement and was discharged home on daptomycin to continue for 10 days at [facility]. Patient was followed by Dr. Lewis. Starting the night before, patient was complaining of some generalized discomfort in the right side of her abdomen which was thought to be related to constipation. Patient was planning to poultry picking machine tender stool softeners but was discharged home as her abdomen was completely benign and examination. However, patient states that her abdominal pain worsened on the right side with radiation to the back. It was worse with deep inspiration. Patient came back to the emergency center for evaluation. CAT scan of the pelvis showed massive free air, more free air in the upper abdomen, diverticulosis sigmoid colon did not show definite inflammatory changes. Some constipation was appreciated. Patient was admitted to Dr. Lebron and went to [facility] for perforated sigmoid diverticulitis, umbilical hernia status post exploratory laparotomy, sigmoid colectomy and end colostomy. Patient is seen on the [facility] floor. Her pain is currently controlled. TELEVISION SPECIALIST is in place. She denies having any chest pain. Noted that she is requiring oxygen at 3 L and concern for PE. CTA of the chest ordered which was negative for acute pulmonary embolism. Moderate emphysematous change with atelectatic changes in the lower lungs. No suspicious focal infiltrate. Noted that patient's facial cellulitis is significantly improved since last seen. 07/07: Patient is on clear liquid diet today, however some nausea secondary to abdominal distention, she is bloated mainly with gas, has flat to's or gas in the colostomy bag, however there is still no stools, this is postop day #1 Maalox started, early ambulation, O2 at 2 L nasal cannula, for hypoxemia 97 at 4 L this cannula, vitals are 140-168, systolic, heart rate is under control, has amlodipine which was started today, and start hydralazine 10 every 6 when necessary for blood pressure over 160 07/08, full liquid diet today, patient still miserable secondary to postop pain, however bloating is less, no nausea, patient's seen in the recliner for today, O2 at 4 L this cannula, patient has some cough without any shortness of breath, chest x-ray to be done, and Incentive spirometry reinforced, might need Lasix, 94% on 4 L O2 2/1: Patient states that she has been passing gas in her ostomy. Patient is noted to have small amount of brown stool. Patient states that she had insurance last night and ever since she's had ongoing vomiting. She states she has no appetite but she tried to have some chicken broth this morning but vomited this. Patient is already on Zofran, Phenergan and Reglan for nausea and vomiting. We will add in a scopolamine patch. Patient also states that she is not using her TELEVISION SPECIALIST as she thinks that the fentanyl is causing more nausea and vomiting. We will start a small dose of [place]. She is currently on daptomycin and Zosyn. Patient is been afebrile, heart rate 86, blood pressure 121/82, pulse ox 95% on 4 L nasal cannula. WBC 14.2, hemoglobin 15, platelet count 340. Electrolytes normal, creatinine 0.8. 2/2: Patient states that the scopolamine patch work for about 6-8 hours yesterday and then around 8 PM after she ate some clear liquids and pudding she started having nausea all through the night and vomited once this morning. She is passing gas and stool in the colostomy. Harris catheter is draining adequate amount of clear sarwat urine. She is on IV antibiotics in the form of Zosyn and daptomycin. Facial cellulitis is significantly improved. Patient has been afebrile, heart rate 89, blood pressure 155/87, pulse ox 96% on 4 L nasal cannula. Repeat blood work reveals WBC 13.3, hemoglobin 13.8. Electrolytes normal, BUN 8 and creatinine 0.7. Blood sugar 116. Recommend the patient avoid using the fentanyl TELEVISION SPECIALIST and try to use [place] only. 2/3: Patient is off fentanyl TELEVISION SPECIALIST and nausea is significantly better. She is currently on clear liquids with crackers. She is to meet again today with os jerry nurse. Harris catheter to be removed later today. Erythema and edema to her face is significantly improved. There is a small area of dried scab and Bactroban will be added. She has been afebrile, heart rate 69, blood pressure 131/78, pulse ox 94% on 4 L nasal cannula. 2: Patient states nausea and vomiting continued to improve. She does complain of pain in the right lower quadrant that is quite severe especially with any movement. She is currently tolerating a low fiber. She has output ileostomy and has worked with the ostomy nurse. Patient has been afebrile, heart rate 91, blood pressure 120/71, pulse ox 93% on room air. WBC 11.4, hemoglobin 12.5. Antibiotics on Rocephin and Flagyl per Dr. Lewis. Patient is also on daptomycin for the chin abscess cellulitis. 07/13: CAT scan of the abdomen and pelvis yesterday revealed some prominence of bowel loops, suspect postoperative ileus. Persistent moderate right sided colonic fecal stasis. Patient was given mag citrate last night and she said all he did was cause cramps for 4 hours. She is had decreased output from her ost hermann since yesterday. She complains of continued right lower quadrant pain that is not letting up. She states a binder did not help at all. Vomiting resolved. Abdominal x-rays this morning revealed improved small bowel dilatation and prominence. Interval passage of contrast to colostomy. Suspect resolving postoperative ileus. Repeat CBC normal with resolution of leukocytosis. Patient has complained of sore throat for which Dr. Lewis added nystatin for possible yeast. 07/14: Patient had positive output in her colostomy yesterday. Today she is feeling nauseated and has lack of appetite. She is worried that she is going backwards instead of forward. She no longer has any vomiting. At this time she has scopolamine patch in place. Patient does not want to have any insurance she feels that'll make her sick and. She will try to chocolate and sugar today. Patient did receive a Xanax today which seems to have decrease her anxiety. Patient states that she will sleep for up and then attempt to ambulate throughout the room. Patient is afebrile, pulse rate 97, blood pressure 149/83, pulse ox 94% on room air. WBC9.5, hemoglobin 12.4 07/15: Patient states that she is feeling much better today compared to yesterday. She utilizes abdominal binder which she found to be uncomfortable and septicemia. Patient is complaining of some feelings of fullness especially when trying to sleep on her side. Patient denies any dizziness or chest pain. Nausea has improved no vomiting. Continues to have output through her colostomy. Patient remains afebrile, pulse rate 82, respirations 20, blood pressure 110/72, 91% on room air. CBC 0.3, hemoglobin 12.9, potassium 4.0, BUN 6.0, creatinine 0.6. REVIEW OF SYSTEMS Constitutional: No fever, no chills, no night sweats. No weight change. No weakness, fatigue or lethargy. No daytime sleepiness. EENT: No headache. No blurred vision or double vision, no loss of vision. No loss of Hearing, no ringing in the ears, no dizziness. No nasal drainage or congestion. No epistaxis. Reports sore throat. Denies facial pain. Lungs: No shortness of breath, cough, no sputum production. No wheezing. Cardiovascular: No chest pain, no lower extremity edema. No palpitations. No paroxysmal nocturnal dyspnea. No orthopnea. No lightheadedness or dizziness. No syncopal episodes. Abdominal: Reports abdominal discomfort. Denies nausea, denies vomiting. No diarrhea. No constipation. No bloody or tarry stools. Denies loss of appetite. Genitourinary: No dysuria, increased frequency, urgency. No urinary retention. Musculoskeletal: No myalgias. No muscle weakness, no gait dysfunction, no frequent falls. No back pain. No neck pain. Integumentary: Mild redness to the right chin. No rash or pruritus. No unusual bruising. No change in hair or nails. Neurologic: No aphasia. No facial droop. No change in mentation. No head injury. No headache. No paralysis. No paresthesia. Psychiatric: No depression. No anxiety. No mood swings. Endocrine: No abnormal blood sugars. No weight change. No excessive sweating or thirst. No cold intolerance. PHYSICAL EXAMINATION Gen: This is a 59-year-old female. She is resting in bed and appears to be in no acute distress. HEENT: Head is atraumatic, normocephalic. Pupils equal, round. Sclerae is anicteric. Patient has small wound to the right lower chin. No drainage. Significantly decreased erythema and edema. NECK: Supple. No JVD. No lymphadenopathy. No thyromegaly. No stridor noted LUNGS: Clear to auscultation. No wheezes or rhonchi. No intercostal retractions. HEART: Regular rate and rhythm. No murmur. ABDOMEN: Mild distention. Dressing on midline incision. Ostomy on the left of the abdomen with pink stoma, brown stool and gas and colostomy bag. EXTREMITIES: No pedal edema. No calf tenderness. NEUROLOGICAL: Patient is awake, alert and oriented x3. Cranial nerves 2 through 12 are grossly intact. ASSESSMENT AND PLAN 1. Sepsis and pneumoperitoneum secondary to perforated diverticulitis, status post exploratory laparotomy, sigmoid colectomy and end colostomy, postop day #9. TELEVISION SPECIALIST has been discontinued. Continue [place] for pain. Continue Rocephin and Flagyl. Consult with infectious disease appreciated. Currently on low fiber diet. Discussion to move antibiotics to oral. 2. Recent hospitalization for sepsis secondary to facial cellulitis in an immunocompromised host. Enbrel and prednisone on hold. Continue daptomycin, consult with infectious disease appreciated. 2. Hypertension, hypertensive cardiovascular disease. Continue Norvasc 5 mg daily. Hydralazine IV push as needed. 3. Rheumatoid arthritis under the care of Dr. Goldman. Enbrel and prednisone on hold. 4. Gastroesophageal reflux disease. Continue Protonix 40 mg daily. 5. Generalized osteoarthritis, stable. 6. DVT prophylaxis. Heparin subcu. 7. Hypoxemia without acute respiratory failure. Negative for pulmonary embolism. 8. Possible postop ileus, resolving. DISCHARGE PLAN Home. Do not expect need for IV antibiotics. Impression and plan of care have been directed as dictated by the signing physician. Sarah Aguilar nurse practitioner acting as scribe for signing physician. Objective - Vital Signs Vital signs: Vital Signs Temp 97.8 F 07/15/20 02:18 Pulse 82 07/15/20 02:18 Resp 20 07/15/20 02:18 BP 110/72 07/15/20 02:18 Pulse Ox 91 L 07/15/20 02:18 Intake & Output 07/14/20 07/15/20 07/15/20 18:59 06:59 18:59 Output Total 30 Balance -30 Output: Stool 30 Other: Voiding Method Toilet - Labs CBC & Chem 7: 07/15/20 06:12 07/15/20 06:12 Labs: Abnormal Lab Results - Last 24 Hours (Table) 07/15/20 07/15/20 Range/Units 06:12 06:12 Immature Gran # 0.06 H (0.00-0.04) X 10*3/uL BUN 6.0 L (9.0-27.0) mg/dL BUN/Creatinine Ratio 10.00 L (12.00-20.00) Ratio Calcium 8.4 L (8.7-10.3) mg/dL Total Protein 5.7 L (6.2-8.2) g/dL Albumin 3.60 L (3.80-4.90) g/dL
--- NOTE | 2020-07-15 14:10 | P.PN ---
Subjective Progress Note Date: 07/15/20 CHIEF COMPLAINT: Perforated diverticulitis HISTORY OF PRESENT ILLNESS: The patient is a 59-year-old female status post open descending colostomy with Arteaga's, 07/06/2020. Overnight, she reported int olerance to Vicodin. She was switched to Tramadol and could tolerate. She still reports pulling sensation along her midline incision. She is tolerating diet. ROS: No fevers or chills. No shortness of breath. No chest pain. PHYSICAL EXAM: VITAL SIGNS: Reviewed CONSTITUTIONAL: Well developed and in no acute distress. EYES: Conjuctivae without sclera icterus. Extraocular movements grossly intact. HEAD, EARS, NOSE, THROAT: Moist buccal mucosa. Head is atraumatic, normocephalic. Hears conversational speech. No nasal drainage. NECK: No thyroidomegaly. RESPIRATORY: Non-labored respirations and equal bilateral excursions. CARDIOVASCULAR: Palpable 2+ radial pulses. ABDOMEN: No peritonitis. Colostomy present MUSCULOSKELETAL: No gross deformity of the lower extremities noted. No club olivia. No cyanosis. SKIN: Good skin turgor. Well perfused. NEUROLOGIC: Cranial nerves II through XII grossly intact. No focal or lateralizing signs. PSYCH: Appropriate affect. Alert and oriented to person, place and time. CLINICAL LABS: White blood cell count and Hgb is normal. MICROBIOLOGY: Cultures grew MRSA ASSESSMENT: 1. Perforated diverticulitis status post descending colostomy creation 2. MRSA 3. Colostomy status PLAN: 1. Abdominal binder ordered. 2. Adjustment of pain medications to Tramadol. 3. Continue IV antibiotics. Objective - Vital Signs Vital signs: Vital Signs Temp 97.8 F 07/15/20 02:18 Pulse 82 07/15/20 02:18 Resp 20 07/15/20 02:18 BP 110/72 07/15/20 02:18 Pulse Ox 91 L 07/15/20 02:18 Intake & Output 07/14/20 07/15/20 07/15/20 18:59 06:59 18:59 Output Total 30 Balance -30 Weight 81.647 kg Output: Stool 30 Other: Voiding Method Toilet - Labs CBC & Chem 7: 07/15/20 06:12 07/15/20 06:12 Labs: Abnormal Lab Results - Last 24 Hours (Table) 07/15/20 07/15/20 Range/Units 06:12 06:12 Immature Gran # 0.06 H (0.00-0.04) X 10*3/uL BUN 6.0 L (9.0-27.0) mg/dL BUN/Creatinine Ratio 10.00 L (12.00-20.00) Ratio Calcium 8.4 L (8.7-10.3) mg/dL Total Protein 5.7 L (6.2-8.2) g/dL Albumin 3.60 L (3.80-4.90) g/dL Assessment and Plan (1) Perforated diverticulum of large intestine Current Visit: Yes Status: Acute Code(s): K57.20 - DVTRCLI OF LG INT W PERFORATION AND ABSCESS W/O BLEEDING SNOMED Code(s): 204233819 (2) Colostomy status Current Visit: Yes Status: Acute Code(s): Z93.3 - COLOSTOMY STATUS SNOMED Code(s): 878770967 (3) Perforated bowel Current Visit: Yes Status: Acute Code(s): K63.1 - PERFORATION OF INTESTINE (NONTRAUMATIC) SNOMED Code(s): 26112644 (4) MRSA (methicillin resistant staph aureus) culture positive Current Visit: Yes Status: Acute Code(s): Z22.322 - CARRIER OR SUSPECTED CARRIER OF METHICILLIN RESIS STAPH SNOMED Code(s): 546206142
[2020-07-15] MEDS: traMADol 50 MG TAB PO PRN ×2 (14:17→21:03)
[2020-07-15] MEDS: ALPRAZolam 0.5 MG TAB PO PRN (21:05)
--- NOTE | 2020-07-15 23:32 | PN ---
PROGRESS NOTE DATE OF SERVICE: 07/15/2020 REASON FOR FOLLOWUP: 1. Chin abscess and MRSA. 2. Perforated diverticulitis. INTERVAL HISTORY: Patient is currently afebrile. The patient is breathing comfortably. The patient's chin swelling and redness has resolved. No chest pain. No shortness of breath or cough. Abdominal pain is currently controlled. PHYSICAL EXAMINATION: Blood pressure 136/79 with a pulse of 90, temperature 98. She is 94% on room air. General description: The patient is a middle-aged female lying in bed in no distress. HEENT examination: Lower chin swelling and redness has resolved. LUNGS: Unlabored breathing. Clear to auscultation anteriorly. HEART: S1, S2. Regular rate and rhythm. ABDOMEN: Soft, no tenderness. LABS: Hemoglobin is 12.1, white count 8.3, BUN of 6, creatinine 0.6. DIAGNOSTIC IMPRESSION AND PLAN: 1. Patient with MRSA chin abscess adequately treated currently, completed her antibiotic therapy. 2. Patient with perforated diverticulitis status post diverting colostomy. The patient white count normalized on Rocephin and Flagyl. Finish therapy with oral Ceftin and Flagyl for about a week. MMODL / IJN: [id number] /
[2020-07-16] MEDS ORDERED: PANTOPRAZOLE 40 MG TABLET PO SCH (07:30)
[2020-07-16] MEDS: amLODIPine 5 MG TAB PO SCH (07:51)
[2020-07-16] MEDS: LACTULOSE 20 GM/30 ML CUP PO SCH (07:51)
[2020-07-16] MEDS: metroNIDAZOLE 500 MG TAB PO SCH (07:51)
[2020-07-16] MEDS: NYSTATIN 100,000 UNIT/ML SUSP 500,000 UNIT/5 ML CUP PO SCH (07:52)
[2020-07-16] MEDS: HEPARIN SODIUM,PORCINE 5,000 UNIT/ML 1 ML VIAL SQ SCH (07:52)
[2020-07-16] MEDS: MUPIROCIN 2% OINT 22 GM TUBE TOPICAL SCH (07:52)
[2020-07-16 08:25] VITALS: BP 129/76; PULSE 87; RESP 16; TEMP 98.4
[2020-07-16 09:03] LABS: Basophils # (A) 0.07 X 10*3/uL (0.00-0.10); Eosinophils % (A) 4.2 %; HCT 40.3 % (37.2-46.3); Lymphocytes % (A) 22.4 %; MCH 29.1 pg (27.0-32.0); MCHC 32.3 g/dL (32.0-37.0); MCV 90.4 fL (80.0-97.0); Mean Platelet Volume 9.3 fL (9.5-12.2); Monocytes # (A) 0.64 X 10*3/uL (0.20-1.00); Neutrophils # (A) 4.48 X 10*3/uL (1.80-7.70); Neutrophils % (A) 62.8 %; Platelet Count 333 X 10*3/uL (140-440); RBC 4.46 X 10*6/uL (4.10-5.20); RDW 12.7 % (11.5-14.5); WBC 7.13 X 10*3/uL (4.50-10.00)
[2020-07-16 09:52] LABS: African American GFR (CKD) 116.4 (60.0-200.0); Anion Gap 11.4 mmol/L (4.00-12.00); Calcium 8.5 mg/dL (8.7-10.3); Carbon Dioxide 17.6 mmol/L (21.6-31.8); Non-African American GFR(CKD) 100.5 (60.0-200.0); Potassium 3.9 mmol/L (3.5-5.5)
--- NOTE | 2020-07-16 11:49 | P.PN ---
Subjective Progress Note Date: 07/16/20 This is a 59-year-old female patient of Dr. Cisnerso with past medical history significant for hypertension and hypertensive cardiovascular disease with left ventricular hypertrophy, osteoarthritis, gastroesophageal reflux disease, diverticulosis, rheumatoid arthritis diagnosed in 2005 on Enbrel and followed by Dr. Goldman. Patient was hospitalized July 03 to July 05 for sepsis related to facial cellulitis and an immunocompromised host. Patient was treated with vancomycin with improvement and was discharged home on daptomycin to continue for 10 days at [facility]. Patient was followed by Dr. Lewis. Starting the night before, patient was complaining of some generalized discomfort in the right side of her abdomen which was thought to be related to constipation. Patient was planning to pear picker stool softeners but was discharged home as her abdomen was completely benign and examination. However, patient states that her abdominal pain worsened on the right side with radiation to the back. It was worse with deep inspiration. Patient came back to the emergency center for evaluation. CAT scan of the pelvis showed massive free air, more free air in the upper abdomen, diverticulosis sigmoid colon did not show definite inflammatory changes. Some constipation was appreciated. Patient was admitted to Dr. Lebron and went to [facility] for perforated sigmoid diverticulitis, umbilical hernia status post exploratory laparotomy, sigmoid colectomy and end colostomy. Patient is seen on the [facility] floor. Her pain is currently controlled. TOP DYEING MACHINE TENDER is in place. She denies having any chest pain. Noted that she is requiring oxygen at 3 L and concern for PE. CTA of the chest ordered which was negative for acute pulmonary embolism. Moderate emphysematous change with atelectatic changes in the lower lungs. No suspicious focal infiltrate. Noted that patient's facial cellulitis is significantly improved since last seen. 07/07: Patient is on clear liquid diet today, however some nausea secondary to abdominal distention, she is bloated mainly with gas, has flat to's or gas in th e colostomy bag, however there is still no stools, this is postop day #1 Maalox started, early ambulation, O2 at 2 L nasal cannula, for hypoxemia 97 at 4 L this cannula, vitals are 140-168, systolic, heart rate is under control, has amlodipine which was started today, and start hydralazine 10 every 6 when necessary for blood pressure over 160 07/08, full liquid diet today, patient still miserable secondary to postop pain, however bloating is less, no nausea, patient's seen in the recliner for today, O2 at 4 L this cannula, patient has some cough without any shortness of breath, chest x-ray to be done, and Incentive spirometry reinforced, might need Lasix, 94% on 4 L O2 2/1: Patient states that she has been passing gas in her ostomy. Patient is noted to have small amount of brown stool. Patient states that she had insurance last night and ever since she's had ongoing vomiting. She states she has no appetite but she tried to have some chicken broth this morning but vomited this. Patient is already on Zofran, Phenergan and Reglan for nausea and vomiting. We will add in a scopolamine patch. Patient also states that she is not using her TOP DYEING MACHINE TENDER as she thinks that the fentanyl is causing more nausea and vomiting. We will start a small dose of [place]. She is currently on daptomycin and Zosyn. Patient is been afebrile, heart rate 86, blood pressure 121/82, pulse ox 95% on 4 L nasal cannula. WBC 14.2, hemoglobin 15, platelet count 340. Electrolytes normal, creatinine 0.8. 2/2: Patient states that the scopolamine patch work for about 6-8 hours yesterday and then around 8 PM after she ate some clear liquids and pudding she started having nausea all through the night and vomited once this morning. She is passing gas and stool in the colostomy. Harris catheter is draining adequate amount of clear sarwat urine. She is on IV antibiotics in the form of Zosyn and daptomycin. Facial cellulitis is significantly improved. Patient has been afebrile, heart rate 89, blood pressure 155/87, pulse ox 96% on 4 L nasal cannula. Repeat blood work reveals WBC 13.3, hemoglobin 13.8. Electrolytes normal, BUN 8 and creatinine 0.7. Blood sugar 116. Recommend the patient avoid using the fentanyl TOP DYEING MACHINE TENDER and try to use [place] only. 2/3: Patient is off fentanyl TOP DYEING MACHINE TENDER and nausea is significantly better. She is currently on clear liquids with crackers. She is to meet again today with o marizoly nurse. Harris catheter to be removed later today. Erythema and edema to her face is significantly improved. There is a small area of dried scab and Bactroban will be added. She has been afebrile, heart rate 69, blood pressure 131/78, pulse ox 94% on 4 L nasal cannula. 2: Patient states nausea and vomiting continued to improve. She does complain of pain in the right lower quadrant that is quite severe especially with any movement. She is currently tolerating a low fiber. She has output ileostomy and has worked with the ostomy nurse. Patient has been afebrile, heart rate 91, blood pressure 120/71, pulse ox 93% on room air. WBC 11.4, hemoglobin 12.5. Antibiotics on Rocephin and Flagyl per Dr. Lewis. Patient is also on daptomycin for the chin abscess cellulitis. 07/13: CAT scan of the abdomen and pelvis yesterday revealed some prominence of bowel loops, suspect postoperative ileus. Persistent moderate right sided colonic fecal stasis. Patient was given mag citrate last night and she said all he did was cause cramps for 4 hours. She is had decreased output from her os jerry since yesterday. She complains of continued right lower quadrant pain that is not letting up. She states a binder did not help at all. Vomiting resolved. Abdominal x-rays this morning revealed improved small bowel dilatation and prominence. Interval passage of contrast to colostomy. Suspect resolving postoperative ileus. Repeat CBC normal with resolution of leukocytosis. Patient has complained of sore throat for which Dr. Lewis added nystatin for possible yeast. 07/14: Patient had positive output in her colostomy yesterday. Today she is feeling nauseated and has lack of appetite. She is worried that she is going backwards instead of forward. She no longer has any vomiting. At this time she has scopolamine patch in place. Patient does not want to have any insurance she feels that'll make her sick and. She will try to chocolate and sugar today. Patient did receive a Xanax today which seems to have decrease her anxiety. Patient states that she will sleep for up and then attempt to ambulate throughout the room. Patient is afebrile, pulse rate 97, blood pressure 149/83, pulse ox 94% on room air. WBC9.5, hemoglobin 12.4 07/15: Patient states that she is feeling much better today compared to yesterday. She utilizes abdominal binder which she found to be uncomfortable and septicemia. Patient is complaining of some feelings of fullness especially when trying to sleep on her side. Patient denies any dizziness or chest pain. Nausea has improved no vomiting. Continues to have output through her colostomy. Patient remains afebrile, pulse rate 82, respirations 20, blood pressure 110/72, 91% on room air. CBC 0.3, hemoglobin 12.9, potassium 4.0, BUN 6.0, creatinine 0.6. 07/16: Patient has been doing well. Lesion on her chin has healed. Patient denies having any nausea, vomiting or diarrhea. She is tolerating diet well. She has good output from her colostomy and is working with colostomy nurse again today before discharge. She is anticipating discharge. She's been afebrile, heart rate 87, blood pressure 129/76, pulse ox 94% on room air. Dr. Lewis is recommended Ceftin and Flagyl for one week of discharge. W BC is unremarkable. Creatinine 0.6. REVIEW OF SYSTEMS Constitutional: No fever, no chills, no night sweats. No weight change. No weakness, fatigue or lethargy. No daytime sleepiness. EENT: No headache. No blurred vision or double vision, no loss of vision. No loss of Hearing, no ringing in the ears, no dizziness. No nasal drainage or congestion. No epistaxis. Reports sore throat. Denies facial pain. Lungs: No shortness of breath, cough, no sputum production. No wheezing. Cardiovascular: No chest pain, no lower extremity edema. No palpitations. No paroxysmal nocturnal dyspnea. No orthopnea. No lightheadedness or dizziness. No syncopal episodes. Abdominal: Reports abdominal discomfort improved. Denies nausea, denies vomiting. No diarrhea. No constipation. No bloody or tarry stools. Denies loss of appetite. Genitourinary: No dysuria, increased frequency, urgency. No urinary retention. Musculoskeletal: No myalgias. No muscle weakness, no gait dysfunction, no frequent falls. No back pain. No neck pain. Integumentary: Mild redness to the right chin. No rash or pruritus. No unusual bruising. No change in hair or nails. Neurologic: No aphasia. No facial droop. No change in mentation. No head injury. No headache. No paralysis. No paresthesia. Psychiatric: No depression. No anxiety. No mood swings. Endocrine: No abnormal blood sugars. No weight change. No excessive sweating or thirst. No cold intolerance. PHYSICAL EXAMINATION Gen: This is a 59-year-old female. She is resting in bed and appears to be in no acute distress. HEENT: Head is atraumatic, normocephalic. Pupils equal, round. Sclerae is anicteric. NECK: Supple. No JVD. No lymphadenopathy. No thyromegaly. No stridor noted LUNGS: Clear to auscultation. No wheezes or rhonchi. No intercostal retractions. HEART: Regular rate and rhythm. No murmur. ABDOMEN: Mild distention. Dressing on midline incision. Ostomy on the left of the abdomen with pink stoma, brown stool and gas and colostomy bag. EXTREMITIES: No pedal edema. No calf tenderness. NEUROLOGICAL: Patient is awake, alert and oriented x3. Cranial nerves 2 through 12 are grossly intact. ASSESSMENT AND PLAN 1. Sepsis and pneumoperitoneum secondary to perforated diverticulitis, status post exploratory laparotomy, sigmoid colectomy and end colostomy, postop day #11. Flagyl and Ceftin one week at discharge. Consult with infectious disease appreciated. Currently on low fiber diet. 2. Recent hospitalization for sepsis secondary to facial cellulitis in an immunocompromised host. Enbrel and prednisone on hold. 2. Hypertension, hypertensive cardiovascular disease. Continue Norvasc 5 mg daily. Hydralazine IV push as needed. 3. Rheumatoid arthritis under the care of Dr. Goldman. Enbrel and prednisone on hold. 4. Gastroesophageal reflux disease. Continue Protonix 40 mg daily. 5. Generalized osteoarthritis, stable. 6. DVT prophylaxis. Heparin subcu. 7. Hypoxemia without acute respiratory failure. Negative for pulmonary embolism. 8. Possible postop ileus, resolving. DISCHARGE PLAN Home. Impression and plan of care have been directed as dictated by the signing physician. Renita Ornelas nurse practitioner acting as scribe for signing physician. Objective - Vital Signs Vital signs: Vital Signs Temp 98.4 F 07/16/20 06:50 Pulse 87 07/16/20 08:00 Resp 16 07/16/20 08:00 BP 129/76 07/16/20 06:50 Pulse Ox 94 L 07/16/20 06:50 Intake & Output 07/15/20 07/16/20 07/16/20 18:59 06:59 18:59 Intake Total 100 Balance 100 Weight 81.647 kg Intake: Oral 100 Other: Voiding Method Toilet Toilet # Voids 1 - Labs CBC & Chem 7: 07/16/20 05:46 07/16/20 05:46 Labs: Abnormal Lab Results - Last 24 Hours (Table) 07/15/20 07/15/20 07/16/20 Range/Units 06:12 06:12 05:46 MPV 9.3 L (9.5-12.2) fL Immature Gran # 0.06 H (0.00-0.04) X 10*3/uL Carbon Dioxide (21.6-31.8) mmol/L BUN 6.0 L (9.0-27.0) mg/dL BUN/Creatinine Ratio 10.00 L (12.00-20.00) Ratio Calcium 8.4 L (8.7-10.3) mg/dL Total Protein 5.7 L (6.2-8.2) g/dL Albumin 3.60 L (3.80-4.90) g/dL 07/16/20 Range/Units 05:46 MPV (9.5-12.2) fL Immature Gran # (0.00-0.04) X 10*3/uL Carbon Dioxide 17.6 L (21.6-31.8) mmol/L BUN 6.0 L (9.0-27.0) mg/dL BUN/Creatinine Ratio 10.00 L (12.00-20.00) Ratio Calcium 8.5 L (8.7-10.3) mg/dL Total Protein (6.2-8.2) g/dL Albumin (3.80-4.90) g/dL
--- NOTE | 2020-07-16 11:52 | P.PN ---
Progress Note - Text Progress Note Date: 07/16/20 HISTORY OF PRESENT ILLNESS This is a 59-year-old female patient of Dr. Cisneros with past medical history significant for hypertension and hypertensive cardiovascular disease with left ventricular hypertrophy, osteoarthritis, gastroesophageal reflux disease, diverticulosis, rheumatoid arthritis diagnosed in 2005 on Enbrel and followed by Dr. Goldman. Patient was hospitalized July 03 to July 05 for sepsis related to facial cellulitis and an immunocompromised host. Patient was treated with vancomycin with improvement and was discharged home on daptomycin to continue for 10 days at [facility]. Tired to discharge, patient complained of mild generalized discomfort in the right side of her abdomen which was thought to be related to constipation. Patient states that her abdominal pain worsened on the right side with radiation to the back. It was worse with deep inspiration. Patient came back to the emergency center for evaluation. CAT scan of the pelvis showed massive free air, more free air in the upper abdomen, diverticulosis sigmoid colon did not show definite inflammatory changes. Some constipation was appreciated. Patient was admitted to Dr. Lebron and went for perforated sigmoid diverticulitis, umbilical hernia status post exploratory laparotomy, sigmoid colectomy and end colostomy. 07/16: Patient has been doing well. Lesion on her chin has healed. Patient denies having any nausea, vomiting or diarrhea. She is tolerating diet well. She has good output from her colostomy and is working with colostomy nurse again today before discharge. She is anticipating discharge. She's been afebrile, heart rate 87, blood pressure 129/76, pulse ox 94% on room air. WBC is unremarkable. Creatinine 0.6. PHYSICAL EXAMINATION Gen: This is a 59-year-old female. She is resting in bed and appears to be in no acute distress. HEENT: Head is atraumatic, normocephalic. Pupils equal, round. Sclerae is anicteric. NECK: Supple. No JVD. No lymphadenopathy. No thyromegaly. No stridor noted LUNGS: Clear to auscultation. No wheezes or rhonchi. No intercostal retractions. HEART: Regular rate and rhythm. No murmur. ABDOMEN: no distention. Dressing on midline incision. Ostomy on the left of the abdomen with pink stoma, brown stool and gas and colostomy bag. EXTREMITIES: No pedal edema. No calf tenderness. NEUROLOGICAL: Patient is awake, alert and oriented x3. Cranial nerves 2 through 12 are grossly intact. ASSESSMENT Sepsis and pneumoperitoneum secondary to perforated diverticulitis status post exploratory laparotomy, sigmoid colectomy and end colostomy Recent hospitalization for sepsis secondary to facial cellulitis resolved Rheumatoid arthritis Possible thrush/esophagitis PLAN Plan for Cefin and Flagyl for 7 day course. The above dictated assessment and findings were discussed with Dr. Lewis. The impression and plan of care have been directed as dictated. Renita Ornelas nurse practitioner acting as scribe for Dr. Lewis.
--- NOTE | 2020-07-16 12:42 | P.DS ---
<Alexandria Harley - Last Filed: 07/16/20 12:37> Providers Expected date of discharge: 07/16/20 Hospital Course: Discharge diagnosis 1. Perforated sigmoid diverticulitis and all umbilical hernia status post exploratory laparotomy, sigmoid colectomy and end colostomy 2. Expected postoperative ileus resolved Hospital course 59-year-old female came to the ER after being discharged with right facial cellulitis. Patient takes intermittent prednisone at home and took some recently. Patient has a history of rheumatoid arthritis and is currently on Enbrel. Patient responded well to oral antibiotics. Apparently prior to discharge was having some mild abdominal discomfort that increased after discharge. Pain began underneath her right rib travels across her abdomen. Some radiation of the back. Increased pain with deep inspiration. Decreased appetite. No nausea or vomiting. No rectal bleeding or melena. No history of similar events. Patient was sent for CT of the pelvis which showed massive free air. More free air in the upper abdomen and despite diverticulosis sigmoid colon does not show any definite inflammatory changes. Some constipation appreciated. Patient is status post exploratory laparotomy, sigmoid colectomy and end colostomy for perforated sigmoid diverticulitis and umbilical hernia. Patient also had a postoperative ileus which has resolved after patient given citrate of mag, lactulose and MiraLAX. Her pain is controlled. She denies any nausea or vomiting. She is tolerating diet. She's afebrile. She is ambulating. Patient is stable for discharge. Please refer to chart for any further details. Physician Retail Loan Originator note has been reviewed by physician. Signing provider agrees with the documented findings, assessment, and plan of care. Patient Condition at Discharge: Stable Plan - Discharge Summary Discharge Rx Participant: Yes New Discharge Prescriptions: New HYDROcodone/APAP 5-325MG [[place] 5-325] 1 tab PO Q6HR PRN 3 Days #10 tab PRN Reason: Analgesia Cefuroxime Axetil [Ceftin] 500 mg PO BID 7 Days #14 tab metroNIDAZOLE [Flagyl] 500 mg PO TID #21 tab Mupirocin 2% Oint [Bactroban 2% Oint] 1 applic TOPICAL TID applic Nystatin 100,000 Unit/ml Susp [Mycostatin Oral Susp] 500,000 unit PO QID #120 ml traMADol HCL [Ultram] 50 mg PO Q6HR PRN 3 Days #12 tab PRN Reason: Pain Continue amLODIPine BESYLATE [Amlodipine Besylate] 5 mg PO DAILY Pantoprazole [Protonix] 40 mg PO Q48H Cholecalciferol [Vitamin D3 (25 Mcg = 1000 Iu)] 25 mcg PO DAILY Multivitamins, Thera [Multivitamin (formulary)] 1 tab PO DAILY Calcium Carbonate [Tums] 500 mg PO ONCE PRN PRN Reason: Gi Upset Docusate [Colace] 100 mg PO ONETIME PRN PRN Reason: Constipation Etanercept [Enbrel Sureclick] 50 mg SQ FR #0 predniSONE 10 mg PO DAILY PRN #0 PRN Reason: RA FLARE UP Discontinued DAPTOmycin [Cubicin] 500 mg IV DAILY #10 bag Discharge Medication List Pantoprazole [Protonix] 40 mg PO Q48H 12/13/15 [History] amLODIPine BESYLATE [Amlodipine Besylate] 5 mg PO DAILY 12/13/15 [History] Cholecalciferol [Vitamin D3 (25 Mcg = 1000 Iu)] 25 mcg PO DAILY 07/02/20 [History] Multivitamins, Thera [Multivitamin (formulary)] 1 tab PO DAILY 07/02/20 [History] Calcium Carbonate [Tums] 500 mg PO ONCE PRN 07/05/20 [History] Docusate [Colace] 100 mg PO ONETIME PRN 07/05/20 [History] HYDROcodone/APAP 5-325MG [[place] 5-325] 1 tab PO Q6HR PRN 3 Days #10 tab 07/13/20 [Rx] Cefuroxime Axetil [Ceftin] 500 mg PO BID 7 Days #14 tab 07/16/20 [Rx] Etanercept [Enbrel Sureclick] 50 mg SQ FR #0 07/16/20 [Rx] Mupirocin 2% Oint [Bactroban 2% Oint] 1 applic TOPICAL TID applic 07/16/20 [Rx] Nystatin 100,000 Unit/ml Susp [Mycostatin Oral Susp] 500,000 unit PO QID #120 ml 07/16/20 [Rx] metroNIDAZOLE [Flagyl] 500 mg PO TID #21 tab 07/16/20 [Rx] predniSONE 10 mg PO DAILY PRN #0 07/16/20 [Rx] traMADol HCL [Ultram] 50 mg PO Q6HR PRN 3 Days #12 tab 07/16/20 [Rx] Follow up Appointment(s)/Referral(s): Milind Lebron MD [Medical Doctor] - 07/25/20 4:15 pm [facility], [NON-STAFF] - Shayne Cisneros DO [Primary Care Provider] - 1 Week (office not answering. Please call to michael appointment ) Nadia Goldman MD [STAFF PHYSICIAN] - 1 Week Patient Instructions/Handouts: Diverticulitis (ED), Colostomy Care (ED) Activity/Diet/Wound Care/Special Instructions: No driving while taking ultram No lifting over 10 pounds You may shower. No soaking or tub baths for 2 weeks Very light activity until you are reevaluated at your follow up appointment with your surgeon Discharge Disposition: HOME WITH HOME HEALTH SERVICES Care Plan Goals (MU): Recommendations for Colostomy care Post hospital to home: Last pouching system change: 07.17.2020 Mrs Siddiqi will have the following osotmy care supplies sent home after hospital: Convatec flanges #[id number] (three) Moldable Convatec pouches #[id number] with filter (three) drainable Osotmy Powder (one) No Skin prep pads (12) for home Mrs Siddiqi is to empty the osotmy pouch while sittign or the toilet or facign the toilet when the pouch is 1/2 to 1/3 full and clenase the end with toilet paper DO Not use any baby wipe product to clean the ends Mrs Siddiqi is to change the entire pouching system every 3-5 days Best time of the day principal network architect Home Health please arrange for Mrs Siddiqi to obtain disposable pouches in 2-3 weeks from discharge. Mrs Siddiqi will be receiving [facility]my care supplies [facility] discharge home <Milind Lebron - Last Filed: 07/16/20 14:35> Providers Date of admission: 07/05/20 22:02 Attending physician: Milind Lebron Consults: 07/05/20 21:39 Consult Physician Routine Consulting Provider: Ed Quezada Consult Reason/Comments: Medical Management Do you want consulting provider notified?: Yes 07/06/20 00:43 Consult Physician Routine Consulting Provider: Tracey Lewis Consult Reason/Comments: Cellulitis, diverticulitis Do you want consulting provider notified?: Yes, Notify in am Primary care physician: Shayne Cisneros - Discharge Diagnosis(es) (1) Perforated bowel Status: Acute Hospital Course: As above. Patient doing well. Pain has resolved. May discharge today.
== END 2020-07-16 13:02 | disposition home health service (06) | DRG 853 ==
LOC: EC 18:52 → 4SSUR 22:02
PROVIDERS: ADMIT Surgery; ATTEND Surgery
PROC: 0DTN0ZZ Resection of Sigmoid Colon, Open Approach (ICD-10-PCS; principal; 2020-07-06)
PROC: 0WQF0ZZ Repair Abdominal Wall, Open Approach (ICD-10-PCS; 2020-07-06)
PROC: 0D1M0Z4 Bypass Descending Colon to Cutaneous, Open Approach (ICD-10-PCS; 2020-07-06)
DX: A41.9 Sepsis, unspecified organism (principal); K65.9 Peritonitis, unspecified; D84.9 Immunodeficiency, unspecified; B37.81 Candidal esophagitis; K57.20 Diverticulitis of large intestine with perforation and abscess without bleeding; K56.7 Ileus, unspecified; L02.01 Cutaneous abscess of face; J98.11 Atelectasis; I11.9 Hypertensive heart disease without heart failure; J43.9 Emphysema, unspecified; M06.9 Rheumatoid arthritis, unspecified; K21.9 Gastro-esophageal reflux disease without esophagitis; K42.9 Umbilical hernia without obstruction or gangrene; M15.9 Polyosteoarthritis, unspecified; R09.02 Hypoxemia; F41.9 Anxiety disorder, unspecified; B95.62 Methicillin resistant Staphylococcus aureus infection as the cause of diseases classified elsewhere; Z71.3 Dietary counseling and surveillance; Z90.710 Acquired absence of both cervix and uterus; Z95.828 Presence of other vascular implants and grafts; Z79.899 Other long term (current) drug therapy; Z96.652 Presence of left artificial knee joint; Z87.891 Personal history of nicotine dependence; Z88.5 Allergy status to narcotic agent; Z82.49 Family history of ischemic heart disease and other diseases of the circulatory system; Z83.3 Family history of diabetes mellitus; Z84.1 Family history of disorders of kidney and ureter
CPT/HCPCS: 36415; 71045; 71275; 74019; 74177; 80048; 80053; 81003; 82565; 83605; 83690; 83735; 83880; 84520; 85025; 86140; 87040; 87070; 87077; 87186; 87205; 88307; 99291

== ENCOUNTER → 2020-09-06 | Outpatient (CLI) | payer MEDICAID ==
[2020-09-06 15:29] LABS: Basophils # (A) 0.04 X 10*3/uL (0.00-0.10); Basophils % (A) 0.8 %; Eosinophils # (A) 0.21 X 10*3/uL (0.04-0.35); Eosinophils % (A) 4.3 %; HCT 44.8 % (37.2-46.3); HGB 14.3 g/dL (12.0-15.0); Lymphocytes # (A) 1.91 X 10*3/uL (0.90-5.00); Lymphocytes % (A) 39.5 %; MCH 28.9 pg (27.0-32.0); MCHC 31.9 g/dL (32.0-37.0); MCV 90.7 fL (80.0-97.0); Mean Platelet Volume 10.4 fL (9.5-12.2); Monocytes # (A) 0.48 X 10*3/uL (0.20-1.00); Monocytes % (A) 9.9 %; Neutrophils # (A) 2.18 X 10*3/uL (1.80-7.70); Neutrophils % (A) 45.3 %; Platelet Count 286 X 10*3/uL (140-440); RBC 4.94 X 10*6/uL (4.10-5.20); RDW 13.3 % (11.5-14.5); WBC 4.83 X 10*3/uL (4.50-10.00)
[2020-09-06 16:33] LABS: T4, Free (Free Thyroxine) 1.4 ng/dL (0.80-1.80)
[2020-09-06 16:50] LABS: African American GFR (CKD) 110.7 (60.0-200.0); Albumin 4.2 g/dL (3.80-4.90); Albumin/Globulin Ratio 1.62 (1.60-3.17); Anion Gap 8.9 mmol/L (4.00-12.00); BUN/Creat Ratio 17.14 Ratio (12.00-20.00); Calcium 9.3 mg/dL (8.7-10.3); Carbon Dioxide 24.1 mmol/L (21.6-31.8); Globulin 2.6 g/dL (1.6-3.3); Non-African American GFR(CKD) 95.5 (60.0-200.0); Potassium 4.4 mmol/L (3.5-5.5); Total Bilirubin 0.3 mg/dL (0.3-1.2); Total Protein 6.8 g/dL (6.2-8.2)
[2020-09-06 17:31] LABS: Hemoglobin A1C 6.1 % (4.0-6.0)
== END | disposition home or self-care (01) ==
LOC: LABWHC1 07:35
PROVIDERS: ATTEND Family Medicine
DX: I10 Essential (primary) hypertension (principal); K21.9 Gastro-esophageal reflux disease without esophagitis; K57.92 Diverticulitis of intestine, part unspecified, without perforation or abscess without bleeding; E55.9 Vitamin D deficiency, unspecified; R73.9 Hyperglycemia, unspecified
CPT/HCPCS: 36415; 80053; 82024; 82306; 82533; 83036; 84439; 84443; 85025

== ENCOUNTER → 2020-10-10 | Outpatient (CLI) | payer MEDICAID ==
[2020-10-10 08:37] LABS: HCT 44.5 % (34.0-46.0); HGB 15.4 gm/dL (11.4-16.0); MCH 30.1 pg (25.0-35.0); MCHC 34.5 g/dL (31.0-37.0); MCV 87.2 fL (80.0-100.0); Mean Platelet Volume 7.5; Platelet Count 298 k/uL (150-450); RDW 13.3 % (11.5-15.5)
[2020-10-10 08:43] LABS: Potassium 5.4 mmol/L (3.5-5.1)
== END | disposition home or self-care (01) ==
LOC: LABPAT 07:07
PROVIDERS: ATTEND Surgery
DX: Z01.812 Encounter for preprocedural laboratory examination (principal); K57.20 Diverticulitis of large intestine with perforation and abscess without bleeding
CPT/HCPCS: 36415; 80051; 85027

== ENCOUNTER 2020-10-18 11:48 | Day surgery (SDC) | payer MEDICAID ==
[2020-10-15 16:09] VITALS: BMI 30.9
--- NOTE | 2020-10-18 11:56 | P.GSHP ---
History of Present Illness H&P Date: 10/18/20 Chief Complaint: diverticulitis, change in bowel habits 59-year-old female underwent Arteaga's procedure for perforated diverticulitis approximately 5-6 months ago. Patient has done fairly well following that. Here today for colonoscopy with plans for colostomy reversal tomorrow. Past Medical History Past Medical History: GERD/Reflux, Hypertension, Rheumatoid Arthritis (RA) Additional Past Medical History / Comment(s): DIVERTICULOSIS History of Any Multi-Drug Resistant Organisms: MRSA Date of last positivie culture/infection: 07/07/20 MDRO Source:: MRSA FACE Past Surgical History: Joint Replacement, Orthopedic Surgery Additional Past Surgical History / Comment(s): KNEE SURGERIES LEFT X 9, left knee replaced, D & C, hysterectomy,. COLECTOMY Past Anesthesia/Blood Transfusion Reactions: No Reported Reaction, Family History of Problems w/ Anesthesia Additional Past Anesthesia/Blood Transfusion Reaction / Comment(s): daughter passed out after wisdom teeth removed Past Psychological History: Anxiety, Depression Smoking Status: Former smoker Past Alcohol Use History: Occasional Past Drug Use History: None Reported - Past Family History Mother Family Medical History: Diabetes Mellitus, Hypertension Father Family Medical History: Hypertension, Renal Disease Brother(s) Family Medical History: Diabetes Mellitus Sister(s) Family Medical History: Diabetes Mellitus Daughter(s) Family Medical History: No Reported History Son(s) Family Medical History: No Reported History Medications and Allergies Home Medications Medication Instructions Recorded Confirmed Type Pantoprazole [Protonix] 40 mg PO Q48H 12/13/15 10/15/20 History amLODIPine BESYLATE [Amlodipine 5 mg PO DAILY 12/13/15 10/15/20 History Besylate] Cholecalciferol [Vitamin D3 (25 4,000 unit PO DAILY 07/02/20 10/15/20 History Mcg = 1000 Iu)] Etanercept [Enbrel Sureclick] 50 mg SQ FR #0 07/16/20 10/15/20 Rx ALPRAZolam [Xanax] 0.25 mg PO DIRECTED PRN 10/15/20 10/15/20 History Allergies Allergy/AdvReac Type Severity Reaction Status Date / Time hydrocodone [From Vicodin] Allergy Unknown sweating,blood Verified 10/15/20 15:54 pressure,n&v,dizziness oxycodone [From Percocet] Allergy Unknown sweating,bloodpressure Verified 10/15/20 15:54 drops,n/v, dizziness hydromorphone [From Dilaudid] Allergy sweating, Verified 10/15/20 15:54 blood pressure dropped, n/v,dizziness Surgical - Exam Physical exam: General: Well-developed, well-nourished HEENT: Normocephalic, sclerae nonicteric Abdomen: Nontender, nondistended, incision clean and dry, ostomy without problems Extremities: No edema Neuro: Alert and oriented Assessment and Plan (1) Perforated diverticulum of large intestine Narrative/Plan: Will proceed with colonoscopy at this time. Current Visit: No Status: Acute Code(s): K57.20 - DVTRCLI OF LG INT W PERFORATION AND ABSCESS W/O BLEEDING SNOMED Code(s): 969642259
[2020-10-18 12:14] VITALS: TEMP 97
[2020-10-18] MEDS ORDERED: LIDOCAINE 1% (10MG/ML) FOR IV START INTRADERMA ONE (12:25)
[2020-10-18] MEDS ORDERED: LACTATED RINGERS 1,000 ML IV ONE (12:25)
[2020-10-18] MEDS ORDERED: PROPOFOL 10 MG/ML 20 ML VIAL IV ONE (12:35)
--- NOTE | 2020-10-18 13:16 | P.PCN ---
Date of Procedure: 10/18/20 Procedure(s) Performed: PREOPERATIVE DIAGNOSIS: Change in bowel habits, diverticulitis POSTOPERATIVE DIAGNOSIS: Mild diverticulosis PROCEDURE: Colonoscopy ANESTHESIA: MAC SURGEON: Milind Lebron M.D. SPECIMENS: None ENDOSCOPIC PROCEDURE: The patient was placed on the endoscopy table in the left decubitus position. The Olympus colonoscope was inserted into the anus and passed under direct visualization to the distal sigmoid colon. A small amount of retained mucus and stool was present which was manually evacuated. There was mild disuse proctitis but otherwise appeared normal. The scope was then advanced through the ostomy to the base of the cecum. The appendiceal orifice was visualized. From that point the scope was slowly withdrawn inspecting all surfaces carefully. There were no neoplastic inflammatory or polypoid lesions throughout the cecum, ascending, transverse, and descending colon. There was mild diverticulosis close to the ostomy site. The patient's prep was slightly suboptimal. The patient was taken to the recovery room in stable condition per anesthesia guidelines. RECOMMENDATIONS: Resume liquid diet. Will have patient take additional bowel prep today. Proceed with planned ostomy reversal tomorrow.
[2020-10-18 13:22] VITALS: BP 122/86; PULSE 75; RESP 20
== END 2020-10-18 13:57 | disposition home or self-care (01) ==
LOC: ORWHC2ENDO 11:48
PROVIDERS: ATTEND Surgery
DX: K57.30 Diverticulosis of large intestine without perforation or abscess without bleeding (principal); K62.89 Other specified diseases of anus and rectum; Z93.3 Colostomy status; K21.9 Gastro-esophageal reflux disease without esophagitis; I10 Essential (primary) hypertension; M06.9 Rheumatoid arthritis, unspecified; Z86.14 Personal history of Methicillin resistant Staphylococcus aureus infection; Z96.652 Presence of left artificial knee joint; Z90.710 Acquired absence of both cervix and uterus; Z90.49 Acquired absence of other specified parts of digestive tract; Z98.890 Other specified postprocedural states; Z83.3 Family history of diabetes mellitus; Z82.49 Family history of ischemic heart disease and other diseases of the circulatory system; Z84.1 Family history of disorders of kidney and ureter; Z87.891 Personal history of nicotine dependence; Z79.891 Long term (current) use of opiate analgesic; Z79.52 Long term (current) use of systemic steroids; Z79.899 Other long term (current) drug therapy; F32.9 Major depressive disorder, single episode, unspecified; K57.20 Diverticulitis of large intestine with perforation and abscess without bleeding
CPT/HCPCS: 45378; J2704

== ENCOUNTER 2020-10-19 07:45 | Inpatient (IN) | payer MEDICAID ==
[~2020-10-19 07:45] MED LIST changes: +ACETAMINOPHEN TAB 500 MG TAB PO PRN; +ALVIMOPAN 12 MG CAPSULE PO PRN; -DEXAMETHASONE SOD PHOSPHATE 10 MG/ML 1 ML VIAL IV ONE; +DEXAMETHASONE SOD PHOSPHATE 4 MG/ML 1 ML VIAL IV ONE; +HEPARIN SODIUM,PORCINE/PF 5,000 UNIT/0.5 ML SYRINGE SQ PRN; -LACTATED RINGERS 1,000 ML IV SCH; +LIDOCAINE 1% (10MG/ML) FOR IV START INTRADERMA PRN; +MIDAZOLAM 2 MG/2 ML VIAL IV PRN; +ONDANSETRON 4 MG/2 ML VIAL IVP ONE; +metroNIDAZOLE-NS PMX 500 MG in SALINE 1 100ML.BAG IVPB PRN
--- NOTE | 2020-10-19 10:01 | P.GSHP ---
History of Present Illness H&P Date: 10/19/20 Chief Complaint: Diverticulitis 59-year-old female known to our service. Patient underwent Arteaga's procedure in late June of this year. This was performed for a perforated sigmoid diverticulitis. Postoperatively the patient has done well. She had a colonoscopy yesterday which showed no definite abnormalities other than a slightly suboptimal prep. She is here today for colostomy reversal. Past Medical History Past Medical History: GERD/Reflux, Hypertension, Rheumatoid Arthritis (RA) Additional Past Medical History / Comment(s): DIVERTICULOSIS History of Any Multi-Drug Resistant Organisms: MRSA Date of last positivie culture/infection: 07/07/20 MDRO Source:: MRSA FACE Past Surgical History: Joint Replacement, Orthopedic Surgery Additional Past Surgical History / Comment(s): KNEE SURGERIES LEFT X 9, left knee replaced, D & C, hysterectomy,. COLECTOMY Past Anesthesia/Blood Transfusion Reactions: No Reported Reaction, Family History of Problems w/ Anesthesia Additional Past Anesthesia/Blood Transfusion Reaction / Comment(s): daughter passed out after wisdom teeth removed Past Psychological History: Anxiety, Depression Smoking Status: Former smoker Past Alcohol Use History: Occasional Additional Past Alcohol Use History / Comment(s): smoked 30 years 1ppd, quit 2011 Past Drug Use History: None Reported - Past Family History Mother Family Medical History: Diabetes Mellitus, Hypertension Father Family Medical History: Hypertension, Renal Disease Brother(s) Family Medical History: Diabetes Mellitus Sister(s) Family Medical History: Diabetes Mellitus Daughter(s) Family Medical History: No Reported History Son(s) Family Medical History: No Reported History Medications and Allergies Home Medications Medication Instructions Recorded Confirmed Type Pantoprazole [Protonix] 40 mg PO Q48H 12/13/15 10/19/20 History amLODIPine BESYLATE [Amlodipine 5 mg PO DAILY 12/13/15 10/19/20 History Besylate] Cholecalciferol [Vitamin D3 (25 4,000 unit PO DAILY 07/02/20 10/19/20 History Mcg = 1000 Iu)] Etanercept [Enbrel Sureclick] 50 mg SQ FR #0 07/16/20 10/19/20 Rx ALPRAZolam [Xanax] 0.25 mg PO DIRECTED PRN 10/15/20 10/19/20 History Allergies Allergy/AdvReac Type Severity Reaction Status Date / Time hydrocodone [From Vicodin] Allergy Unknown sweating,blood Verified 10/15/20 15:54 pressure,n&v,dizziness oxycodone [From Percocet] Allergy Unknown sweating,bloodpressure Verified 10/15/20 15:54 drops,n/v, dizziness hydromorphone [From Dilaudid] Allergy sweating, Verified 10/15/20 15:54 blood pressure dropped, n/v,dizziness Surgical - Exam Vital Signs Temp Pulse Resp BP Pulse Ox 98.5 F 94 16 168/84 95 10/19/20 09:52 10/19/20 09:52 10/19/20 09:52 10/19/20 09:52 10/19/20 09:52 Physical exam: General: Well-developed, well-nourished HEENT: Normocephalic, sclerae nonicteric Abdomen: Nontender, nondistended, left-sided ostomy functioning Extremities: No edema Neuro: Alert and oriented Assessment and Plan (1) Perforated diverticulum of large intestine Narrative/Plan: 59-year-old female scheduled for colostomy reversal. Risks of bleeding, infection, leak, abscess, need for ostomy, bladder bowel and ureteral injury, hernia, possible need for further surgeries. She understands and wishes to proceed. Current Visit: No Status: Acute Code(s): K57.20 - DVTRCLI OF LG INT W PERFORATION AND ABSCESS W/O BLEEDING SNOMED Code(s): 269243143
[2020-10-19] MEDS: LACTATED RINGERS 1,000 ML IV SCH (10:08)
[2020-10-19] MEDS ORDERED: SCOPOLAMINE 1.5MG/72HR PATCH TRANSDERM ONE (10:20)
[2020-10-19] MEDS ORDERED: NALOXONE 0.4 MG/ML 1 ML VIAL IV PRN (11:18)
[2020-10-19] MEDS ORDERED: MAGNESIUM SULFATE 4 MEQ/ML 10ML VIAL ONE (11:50)
[2020-10-19] MEDS ORDERED: MIDAZOLAM 2 MG/2 ML VIAL ONE (11:50)
[2020-10-19] MEDS ORDERED: ROCURONIUM 10 MG/ML (5 ML VIAL) IV ONE (11:50)
[2020-10-19] MEDS ORDERED: LIDOCAINE 1% INJ 10MG/ML (20 ML MDV) ONE (11:50)
[2020-10-19] MEDS ORDERED: SUCCINYLCHOLINE CHLORIDE 100 MG/5 ML SYR IV ONE (11:50)
[2020-10-19] MEDS ORDERED: GLYCOPYRROLATE 0.2 MG/ML 2 ML VIAL ONE (11:50)
[2020-10-19] MEDS ORDERED: PROPOFOL 10 MG/ML 20 ML VIAL IV ONE (11:50)
[2020-10-19] MEDS ORDERED: NEOSTIGMINE 1 MG/ML 10 ML VIAL ONE (11:50)
[2020-10-19] MEDS ORDERED: GLUCAGON 1 MG/ML VIAL ONE (11:50)
--- NOTE | 2020-10-19 11:55 | P.ANPRN ---
Procedure Note - Anesthesia - Epidural/Spinal Epidural Time Out Performed: Yes Date of Procedure: 10/19/20 Procedure Start Time: 10:53 Procedure Stop Time: 11:08 Location of Patient: PreOp Indication: Acute Post-Operative Pain, Requested by Surgeon (Dr Lebron) Sedation Type: Sedate with meaningful contact maintained Preparation: Sterile Dressing Position: Sitting Catheter: Indwelling Needle Guage: 18 Injectate: Test Dose Lidocaine1.5% w/1:200,000 epi (3cc) Blood Aspirated: No Pain Paresthesia on Injection Noted: No Events: Uneventful and Well Tolerated
[2020-10-19] MEDS ORDERED: LACTATED RINGERS 1,000 ML IV ONE ×2 (13:15→15:56)
[2020-10-19] MEDS: SODIUM CHLORIDE 0.9% EPIDURAL PRN ×3 (16:26→17:32)
[2020-10-19] MEDS: ROPIVACAINE EPIDURAL PRN ×3 (16:26→17:32)
[2020-10-19] MEDS ORDERED: BENZOCAINE/MENTHOL LOZENG 1 EACH LOZENGE MUCOUS MEM PRN (16:27)
--- NOTE | 2020-10-19 16:40 | P.OP ---
Date of Procedure: 10/19/20 Procedure(s) Performed: PREOPERATIVE DIAGNOSIS: Diverticulitis POSTOPERATIVE DIAGNOSIS: Same PROCEDURE: Colostomy reversal, mobilization splenic flexure SURGEON: Vi EBL: 75 mL ANESTHESIA: General COMPLICATIONS: None OPERATIVE PROCEDURE: Patient was placed on the operative table in the supine position. The patient was placed under general anesthesia. The patient was then placed in lithotomy. The stoma was closed using a pursestring 2-0 Vicryl stitch. The abdomen was prepped and draped in usual sterile fashion. An elliptical incision was made around the colostomy. Dissection through the subcutaneous fat took place using electrocautery. The patient had a moderate- sized parastomal hernia. Entrance into the peritoneal cavity took place through the hernia sac. The stoma was fully mobilized and reduced back into the peritoneal cavity. At that time a vertical incision was made using a scalpel through the previous midline incision. The subcutaneous tissues were divided using electrocautery. Entrance into the peritoneal cavity occurred. The Bookwalter retractor was utilized. The patient had adhesions in the abdominal cavity that were lysed using both sharp and blunt and electrocautery. The bowel was reduced back into the upper abdomen. The patient had very little length to reach the pelvis. For that reason full mobilization the splenic flexure took place using a combination of blunt dissection and electrocautery and the LigaSure device. The patient had a large section of distal sigmoid colon left in place however it appeared narrowed and had multiple diverticulum present. Despite mobilizing the splenic flexure we still had some difficulty reaching the proximal rectum. At the distal sigmoid colon approximately 3-5 cm above the sacral promontory the colon appeared healthy without evidence of diverticulum. This site was chosen for anastomosis. As I attempted to advance the 25 dilator into the anus up to that point however we were only able to reach about retirement up the rectum. There appeared to be some tortuosity and also some spasticity of the rectum. Glucagon was utilized with no improvement. A colotomy was then made in the mid sigmoid colon and the 25 anvil was gradually advanced until we were beyond the anticipated site of anastomosis. A contour stapler was used at that site at that time. The mesentery of the residual proximal sigmoid colon was divided using LigaSure. The anvil was brought out anterior to the staple line. We then opened up our colon proximal to the ostomy. The 25 stapler was advanced until we had a reached a portion of the descending colon that was able to reach the staple line of the distal sigmoid colon. The obturator was brought out and the 2 portions of the stapler were connected to one another. The stapler was then tightened and fired. I then excised the distal portion of the colon where the ostomy was 2.5 cm distal to the anastomosis. At this point we had a side to end colocolotomy. As I inspected the anastomosis I still was concerned about the degree of tension. There was a feeding vessel that was t ethering the anastomosis. This was divided using 0 silk sutures. I waited approximately 5 minutes inspecting the bowel at that point. Unfortunately I was not happy with the degree of perfusion visually. I divided the bowel proximal to the anastomosis sharply. I then excised the anastomosis and proximal rectum until we were approximately 5 cm beyond the sacral promontory. The bowel was divided again using the contour stapler. At this point our sizer was able to reach the staple line. Thankfully we had enough length without proximal bowel to reach that point at this time. There was no evidence of ischemia. The new 25 anvil was advanced into the bowel proximally. A linear 75 stapler was fired across the bowel several centimeters proximal to the visual transition in perfusion. The anvil was brought out adjacent to the staple line. A 3-0 silk pursestring was placed. 2 portions of the stapler were then connected to one another and subsequently tightened and fired. The bowel was clamped proximal to the anastomosis. The rigid sigmoidoscope was utilized to fill the anastomotic site nicely with air. There was saline in the pelvis at this time. No evidence of leak was seen. No bleeding was seen. The abdomen was irrigated with saline. The liver, stomach, visualized colon, and small bowel appeared normal. The midline fascia was then reapproximated using 3 separate double-stranded #1 PDS sutures. The subcutaneous tissues were closed using 2-0 Vicryl sutures. The skin was then closed using pj. The fascia at the stoma site was reapproximated using [id number] 0 Ethibond sutures in a vertical fashion. The subcutaneous tissues at the colostomy site were closed using interrupted 2-0 Vicryl sutures. [place] were used to reapproximate the skin at the ostomy site as well. Sterile dressings were then applied. At the completion of the procedure the sponge needle and management counts were correct. DISPOSITION: Stable to recovery room
[2020-10-19] MEDS ORDERED: diphenhydrAMINE 50 MG/ML 1 ML VIAL IVP ONE (16:52)
[2020-10-19] MEDS ORDERED: KETOROLAC 15 MG/ML 1 ML VIAL IVP ONE (17:13)
[2020-10-19] MEDS: D5-0.45% NACL WITH KCL 20MEQ/L 1,000 ML IV SCH (18:20)
[2020-10-19] MEDS ORDERED: hydrALAZINE HCL 20 MG/ML 1 ML VIAL IVP PRN (19:24)
[2020-10-19] MEDS: FAMOTIDINE 20 MG/2 ML VIAL IV SCH (20:39)
[2020-10-19] MEDS: traMADol 50 MG TAB PO PRN (23:17)
[2020-10-19] MEDS: HEPARIN SODIUM,PORCINE/PF 5,000 UNIT/0.5 ML SYRINGE SQ SCH (23:18)
[2020-10-20] MEDS: D5-0.45% NACL WITH KCL 20MEQ/L 1,000 ML IV SCH ×3 (03:14→16:30)
[2020-10-20] MEDS: LACTATED RINGERS 1,000 ML IV SCH (04:06)
[2020-10-20] MEDS: traMADol 50 MG TAB PO PRN ×2 (04:07→16:30)
[2020-10-20] MEDS: FAMOTIDINE 20 MG/2 ML VIAL IV SCH ×2 (08:09→20:28)
[2020-10-20] MEDS: ALVIMOPAN 12 MG CAPSULE PO SCH ×2 (08:09→20:28)
[2020-10-20] MEDS: HEPARIN SODIUM,PORCINE/PF 5,000 UNIT/0.5 ML SYRINGE SQ SCH ×3 (08:10→23:12)
[2020-10-20] MEDS ORDERED: PROMETHAZINE HCL 6.25 MG/5 ML CUP PO PRN (09:26)
[2020-10-20] MEDS: ROPIVACAINE EPIDURAL PRN ×2 (10:06→16:23)
[2020-10-20] MEDS: SODIUM CHLORIDE 0.9% EPIDURAL PRN ×2 (10:06→16:23)
[2020-10-20] MEDS: KETOROLAC 15 MG/ML 1 ML VIAL IVP SCH ×3 (10:07→23:10)
--- NOTE | 2020-10-20 10:44 | P.CONS ---
History of Present Illness - Reason for Consult Consult date: 10/20/20 Requesting physician: Milind Lebron - Chief Complaint Medical consult for medical management, status post colostomy reversal - History of Present Illness This is a 59-year-old female patient of Dr. Cisneros with past medical history significant for hypertension and hypertensive cardiovascular disease with left ventricular hypertrophy, osteoarthritis, gastroesophageal reflux disease, diverticulosis, rheumatoid arthritis diagnosed in 2005 on Enbrel and followed by Dr. Goldman. Patient was hospitalized July 03 to July 05 for sepsis related to facial cellulitis and an immunocompromised host. Thereafter, she had some abdominal pain, for which CAT scan was concerning for perforated sigmoid diverticula, requiring exploratory appendectomy and sigmoid colectomy and end colostomy, 07/08/2020. She now comes in for colostomy reversal, for which Dr. Lebron has performed these on 10/19/2020. Patient has an epidural pain pump, however she is complaining of significant abdominal pain with abdominal distention, no nausea however she is up scopolamine patch, she has uncontrolled pain, no flatus, patient currently is nothing by mouth except medications. Patient denies any fever or chills or shortness of breath no chest pain, no cough, however patient's fearful of getting any nausea vomiting, acid technically hurts even more. She does have ALLERGIES to hydrocodone, oxycodone, hydromorphone, plan for pain management would be tramadol, and the current epidural pain pump. Review of Systems Constitutional: Reports as per HPI, Denies anorexia, Denies chills, Denies chronic headaches, Denies chronic pain, Denies daytime sleepiness, Denies fatigue, Denies fever, Denies lethargy, Denies malaise, Denies night sweats, Denies poor appetite, Denies sweats, Denies weakness, Denies weight gain, Denies weight loss Ears, nose, mouth and throat: Reports as per HPI Cardiovascular: Reports as per HPI Respiratory: Reports as per HPI Gastrointestinal: Reports as per HPI, Reports abdominal pain, Reports bloating, Reports nausea, Denies belching, Denies BRBPR, Denies change in bowel habits, Denies coffee ground emesis, Denies constipation, Denies diarrhea, Denies dyspepsia, Denies early satiety, Denies excessive gas, Denies heartburn, Denies hematemesis, Denies hematochezia, Denies indigestion, Denies jaundice, Denies lactose intolerance, Denies loss of appetite, Denies melena, Denies vomiting Genitourinary: Reports as per HPI, Denies abnormal vaginal bleeding, Denies decreased libido, Denies difficulty conceiving, Denies difficulty voiding, Denies dysmenorrhea, Denies dyspareunia, Denies dysuria, Denies flank pain, Denies genital sores, Denies hematuria, Denies hot flashes, Denies incomplete emptying, Denies kidney stones, Denies menorrhagia, Denies mixed incontinence, Denies nocturia, Denies pelvic pain, Denies post void dribbling, Denies , Denies prolapse symptoms, Denies stress incontinence, Denies urge incontinence, Denies urgency, Denies urinary frequency, Denies vaginal discharge, Denies vaginal dryness, Denies vaginal itching, Denies vaginal odor Menstruation: Reports as per HPI Musculoskeletal: Reports as per HPI, Denies arm numbness/tingling, Denies atrophy, Denies fractures, Denies frequent falls, Denies gait dysfunction, Denies hot joints, Denies leg numbness/tingling, Denies limitation of motion, Denies loss of height, Denies low back pain, Denies morning stiffness, Denies muscle cramps, Denies muscle weakness, Denies myalgias, Denies neck pain, Denies neck stiffness, Denies prior amputations, Denies redness of joints, Denies shooting arm pain, Denies shooting leg pain Integumentary: Reports as per HPI, Reports wounds (Surgical incision, has surgical dressing, an abdominal binder in the abdomen) Neurological: Reports as per HPI, Denies aphasia, Denies ataxia, Denies balance difficulties, Denies burning pain, Denies change in mentation, Denies change in smell/taste, Denies change in speech, Denies confusion, Denies convulsions, Denies double vision, Denies gait dysfunction, Denies head injury, Denies headaches, Denies hearing difficulties, Denies lack of coordination, Denies loss of vision, Denies memory loss, Denies migraines, Denies motor disturbance, Denies numbness, Denies paralysis, Denies paresthesias, Denies seizures, Denies sensory deficit, Denies spasticity, Denies syncope, Denies tic, Denies tingling, Denies transient paralysis, Denies tremors, Denies vertigo, Denies weakness, Denies visual changes Psychiatric: Reports as per HPI, Reports anxiety Endocrine: Reports as per HPI, Denies fatigue, Denies flushing, Denies heat intolerance, Denies palpitations, Denies thyroid mass, Denies weight change Allergic/Immunologic: Denies urticaria, Denies wheezing Past Medical History Past Medical History: GERD/Reflux, Hypertension, Rheumatoid Arthritis (RA) Additional Past Medical History / Comment(s): DIVERTICULOSIS History of Any Multi-Drug Resistant Organisms: MRSA Year Discovered:: 07/07/20 MDRO Source:: MRSA FACE Past Surgical History: Joint Replacement, Orthopedic Surgery Additional Past Surgical History / Comment(s): KNEE SURGERIES LEFT X 9, left knee replaced, D & C, hysterectomy,. COLECTOMY Past Anesthesia/Blood Transfusion Reactions: No Reported Reaction, Family History of Problems w/ Anesthesia Additional Past Anesthesia/Blood Transfusion Reaction / Comm: daughter passed out after wisdom teeth removed Smoking Status: Former smoker - Past Family History Mother Family Medical History: Diabetes Mellitus, Hypertension Father Family Medical History: Hypertension, Renal Disease Brother(s) Family Medical History: Diabetes Mellitus Sister(s) Family Medical History: Diabetes Mellitus Daughter(s) Family Medical History: No Reported History Son(s) Family Medical History: No Reported History Medications and Allergies Home Medications Medication Instructions Recorded Confirmed Type Pantoprazole [Protonix] 40 mg PO Q48H 12/13/15 10/19/20 History amLODIPine BESYLATE [Amlodipine 5 mg PO DAILY 12/13/15 10/19/20 History Besylate] Cholecalciferol [Vitamin D3 (25 4,000 unit PO DAILY 07/02/20 10/19/20 History Mcg = 1000 Iu)] Etanercept [Enbrel Sureclick] 50 mg SQ FR #0 07/16/20 10/19/20 Rx ALPRAZolam [Xanax] 0.25 mg PO DIRECTED PRN 10/15/20 10/19/20 History Allergies Allergy/AdvReac Type Severity Reaction Status Date / Time hydrocodone [From Vicodin] Allergy Unknown sweating,blood Verified 10/15/20 15:54 pressure,n&v,dizziness oxycodone [From Percocet] Allergy Unknown sweating,bloodpressure Verified 10/15/20 15:54 drops,n/v, dizziness hydromorphone [From Dilaudid] Allergy sweating, Verified 10/15/20 15:54 blood pressure dropped, n/v,dizziness Physical Exam Vitals: Vital Signs Temp Pulse Pulse Resp BP Pulse Ox 10/20/20 07:53 98.2 F 98 18 164/97 97 10/20/20 06:54 98.4 F 10/20/20 02:21 99.3 F 77 18 101/66 94 L 10/19/20 20:00 67 16 10/19/20 19:59 68 131/81 96 10/19/20 19:44 71 126/83 96 10/19/20 19:29 66 130/74 97 10/19/20 19:14 66 125/85 96 10/19/20 18:59 64 130/82 97 10/19/20 18:44 97.4 F L 63 113/67 98 10/19/20 18:29 64 103/63 96 10/19/20 18:16 63 99 10/19/20 18:01 65 107/64 10/19/20 17:23 67 16 126/72 99 10/19/20 17:08 61 16 121/74 100 10/19/20 16:53 73 16 105/69 99 10/19/20 16:38 76 16 105/68 98 10/19/20 16:23 97.3 F L 83 14 112/74 98 Intake and Output 10/19/20 10/20/20 10/20/20 22:59 06:59 14:59 Intake Total 216 1500 Output Total 775 700 Balance -559 800 Intake: IV 216 Intake, IV Titration 1500 Amount D5-0.45% NaCl with KCl 1500 20Meq/l 1,000 ml @ 125 mls/hr IV .Q8H [facility] Rx#: [id number] Output: Urine 700 700 Estimated Blood Loss 75 Other: Voiding Method Indwelling Catheter Indwelling Catheter Weight 77.2 kg - Constitutional General appearance: average body habitus, cooperative - EENT Eyes: anicteric sclerae, EOMI, PERRLA, dentition normal, normal appearance ENT: NA/AT, normal oropharynx - Neck Neck: normal ROM - Respiratory Respiratory: bilateral: CTA, negative: diminished, dullness, rales, rhonchi - Cardiovascular Rhythm: regular Heart sounds: normal: S1, S2 Abnormal Heart Sounds: no systolic murmur, no diastolic murmur, no rub, no S3 Gallop, no S4 Gallop, no click, no other - Gastrointestinal General gastrointestinal: absent bowel sounds, soft - Integumentary Integumentary: normal, normal turgor - Neurologic Neurologic: CNII-XII intact, focal deficits - Musculoskeletal Musculoskeletal: strength equal bilaterally - Psychiatric Psychiatric: A&O x's 3, appropriate affect, intact judgment & insight Results CBC & Chem 7: 10/19/20 10:06 Labs: Laboratory Results Potassium 4.7 mmol/L (3.5-5.1) 10/19/20 10:06 Coronavirus (PCR) Not Detected (Not Detectd) 10/19/20 11:50 Blood Type A Negative 10/10/20 07:45 Blood Type Recheck A Neg 10/10/20 07:45 Bld Type Recheck Status No 10/10/20 07:45 Antibody Screen NEGATIVE 10/10/20 07:45 Spec Expiration Date 10/21/20234410/10/20 07:45 Assessment and Plan Plan: 1. Colostomy reversal 10/19/2020 , postop day #1 with prior history of pneumoperitoneum on from perforated diverticulitis in July 08, requiring sigmoid colectomy and end colostomy, patient currently is on epidural pain management, pulse catheter is in place, surgical incision is well, coaptated. Hold off Enbrel at this time, patient is not on prednisone prior to admission postop pain management is not controlled, despite epidural pump, we'll add Torad ol 6 doses, for bridging treatment, patient unable to get other narcotics, possible Talwin for postoperative pain management, we'll add Phenergan when necessary 2. Hypertension, hydralazine 10 mg IV every 6 when necessary, 4/160, when necessary for over 160 Hypertension, hypertensive cardiovascular disease. We'll restart amlodipine Norvasc 5 mg daily. 3. Rheumatoid arthritis under the care of Dr. Goldman. Enbrel and prednisone on hold. May use Plaquenil to breech if RA is not controlled 4. Gastroesophageal reflux disease. Continue Pepcid 20 twice a day. 5. Generalized osteoarthritis, stable. 6 Prior history of MRSA face, 07/08/2020 7. Chronic immunosuppressed patient, secondary to Enbrel monitor for wound healing process and nutrition 8. DVT prophylaxis heparin subcu Thank you Dr. Manriquez allowing us to pursue been the care of your patient. We are going to follow her with you in this current hospital stay, recommendations will be made based on her clinical progress.
--- NOTE | 2020-10-20 10:49 | P.PN ---
Subjective Progress Note Date: 10/20/20 Principal diagnosis: Diverticulitis Patient says she was doing well until around 11:00 last night when she began experiencing increased abdominal pain. Does complain of some numbness in the leg presumably from the epidural. T-max 99.3. No tachycardia. Labs are pending. Urine is clear. Objective - Vital Signs Vital signs: Vital Signs Temp 98.2 F 10/20/20 07:53 Pulse 98 10/20/20 07:53 Resp 18 10/20/20 07:53 BP 164/97 10/20/20 07:53 Pulse Ox 97 10/20/20 07:53 Intake & Output 10/19/20 10/20/20 10/20/20 18:59 06:59 18:59 Intake Total 2366 1500 Output Total 775 700 Balance 1591 800 Weight 77.2 kg Intake: IV 2366 Intake, IV Titration 1500 Amount D5-0.45% NaCl with KCl 1500 20Meq/l 1,000 ml @ 125 mls/hr IV .Q8H [facility] Rx#: [id number] Output: Urine 700 700 Estimated Blood Loss 75 Other: Voiding Method Indwelling Catheter Indwelling Catheter - Exam Abdomen: Soft, mild distention, dressing clean and dry - Labs CBC & Chem 7: 10/19/20 10:06 Assessment and Plan (1) Perforated diverticulum of large intestine Narrative/Plan: Patient with increased pain this morning. Challenging pain control given the patient's significant nausea and vomiting response to narcotics. Discussed with the nursing staff to ensure she is getting IV Tylenol and IV Toradol angela [id number]. Discussed with anesthesia to come reevaluate epidural catheter. Keep nothing by mouth for now. Keep Harris catheter. Current Visit: No Status: Acute Code(s): K57.20 - DVTRCLI OF LG INT W PERFORATION AND ABSCESS W/O BLEEDING SNOMED Code(s): 549026986
[2020-10-20] MEDS: ACETAMINOPHEN IV (For NPO) 1,000 MG in EMPTY BAG 1 BAG IVPB SCH ×3 (11:09→23:11)
[2020-10-20 11:30] LABS: Basophils # (A) 0.04 X 10*3/uL (0.00-0.10); Basophils % (A) 0.2 %; Eosinophils # (A) 0.45 X 10*3/uL (0.04-0.35); Eosinophils % (A) 2.1 %; HCT 45.8 % (37.2-46.3); HGB 14.8 g/dL (12.0-15.0); Lymphocytes # (A) 1.13 X 10*3/uL (0.90-5.00); Lymphocytes % (A) 5.3 %; MCH 29.2 pg (27.0-32.0); MCHC 32.3 g/dL (32.0-37.0); MCV 90.3 fL (80.0-97.0); Mean Platelet Volume 10.1 fL (9.5-12.2); Monocytes # (A) 1.07 X 10*3/uL (0.20-1.00); Neutrophils # (A) 18.53 X 10*3/uL (1.80-7.70); Platelet Count 228 X 10*3/uL (140-440); RBC 5.07 X 10*6/uL (4.10-5.20); RDW 13.2 % (11.5-14.5); WBC 21.31 X 10*3/uL (4.50-10.00)
[2020-10-20 11:57] LABS: African American GFR (CKD) 110.7 (60.0-200.0); Anion Gap 10.3 mmol/L (4.00-12.00); BUN/Creat Ratio 12.86 Ratio (12.00-20.00); Calcium 9.1 mg/dL (8.7-10.3); Carbon Dioxide 19.7 mmol/L (21.6-31.8); Non-African American GFR(CKD) 95.5 (60.0-200.0); Potassium 4.6 mmol/L (3.5-5.5)
[2020-10-20] MEDS: amLODIPine 5 MG TAB PO SCH (12:40)
[2020-10-20] MEDS: ONDANSETRON 4 MG/2 ML VIAL IVP PRN (20:28)
[2020-10-20] MEDS ORDERED: MELATONIN 5 MG TABLET PO PRN (21:58)
[2020-10-20] MEDS: METOCLOPRAMIDE 5 MG/ML 2 ML VIAL IVP PRN (22:22)
[2020-10-21] MEDS: D5-0.45% NACL WITH KCL 20MEQ/L 1,000 ML IV SCH ×2 (02:27→11:19)
[2020-10-21] MEDS: METOCLOPRAMIDE 5 MG/ML 2 ML VIAL IVP PRN ×3 (04:21→23:16)
[2020-10-21] MEDS: ACETAMINOPHEN IV (For NPO) 1,000 MG in EMPTY BAG 1 BAG IVPB SCH ×2 (05:19→20:18)
[2020-10-21] MEDS: KETOROLAC 15 MG/ML 1 ML VIAL IVP SCH ×4 (05:20→23:03)
[2020-10-21] MEDS: HEPARIN SODIUM,PORCINE/PF 5,000 UNIT/0.5 ML SYRINGE SQ SCH ×3 (08:14→23:03)
[2020-10-21] MEDS: amLODIPine 5 MG TAB PO SCH (09:19)
[2020-10-21] MEDS: FAMOTIDINE 20 MG/2 ML VIAL IV SCH ×2 (09:19→20:19)
[2020-10-21 09:58] LABS: Basophils # (A) 0.03 X 10*3/uL (0.00-0.10); Basophils % (A) 0.2 %; Eosinophils # (A) 0.01 X 10*3/uL (0.04-0.35); Eosinophils % (A) 0.1 %; HCT 45.6 % (37.2-46.3); HGB 14.2 g/dL (12.0-15.0); Lymphocytes # (A) 0.93 X 10*3/uL (0.90-5.00); Lymphocytes % (A) 6.4 %; MCH 28.7 pg (27.0-32.0); MCHC 31.1 g/dL (32.0-37.0); MCV 92.1 fL (80.0-97.0); Mean Platelet Volume 10.6 fL (9.5-12.2); Monocytes # (A) 0.68 X 10*3/uL (0.20-1.00); Monocytes % (A) 4.7 %; Neutrophils # (A) 12.94 X 10*3/uL (1.80-7.70); Neutrophils % (A) 88.5 %; Platelet Count 230 X 10*3/uL (140-440); RBC 4.95 X 10*6/uL (4.10-5.20); RDW 13.8 % (11.5-14.5); WBC 14.61 X 10*3/uL (4.50-10.00)
[2020-10-21 10:07] LABS: African American GFR (CKD) 110.7 (60.0-200.0); Anion Gap 10.5 mmol/L (4.00-12.00); BUN/Creat Ratio 12.86 Ratio (12.00-20.00); Calcium 8.6 mg/dL (8.7-10.3); Carbon Dioxide 19.5 mmol/L (21.6-31.8); Non-African American GFR(CKD) 95.5 (60.0-200.0); Potassium 5.3 mmol/L (3.5-5.5)
--- NOTE | 2020-10-21 10:31 | P.PN ---
Subjective This is a 59-year-old female patient of Dr. Cisneros with past medical history significant for hypertension and hypertensive cardiovascular disease with left ventricular hypertrophy, osteoarthritis, gastroesophageal reflux disease, diverticulosis, rheumatoid arthritis diagnosed in 2005 on Enbrel and followed by Dr. Goldman. Patient was hospitalized July 03 to July 05 for sepsis related to facial cellulitis and an immunocompromised host. Thereafter, she had some abdominal pain, for which CAT scan was concerning for perforated sigmoid diverticula, requiring exploratory appendectomy and sigmoid colectomy and end colostomy, 07/08/2020. She now comes in for colostomy reversal, for which Dr. Lebron has performed these on 10/19/2020. Patient has an epidural pain pump, however she is complaining of significant abdominal pain with abdominal distention, no nausea however she is up scopolamine patch, she has uncontrolled pain, no flatus, patient currently is nothing by mouth except medications. Patient denies any fever or chills or shortness of breath no chest pain, no cough, however patient's fearful of getting any nausea vomiting, acid technically hurts even more. She does have ALLERGIES to hydrocodone, oxycodone, hydromorphone, plan for pain management would be tramadol, and the current epidural pain pump. 10/21: Patient evaluated, laying comfortably in the bed. Patient reports she's had a few bouts of diarrhea, she denies any nausea or vomiting. She is tolerating ice chips and popsicles. Her abdomen is soft, nondistended, dressing is clean dry and intact, she has good bowel sounds. Laboratory values showed WBC 14.6, hemoglobin 14.2, sodium 141, potassium 5.3, BUN 9, creatinine 0.7. Vital signs are stable temperature of 98.3, heart rate 94, respiratory rate of 17, blood pressure 113/71, pulse ox 90% on room air. Incentive spirometer at bedside encouraged its use. Objective - Vital Signs Vital signs: Vital Signs Temp 98.3 F 10/21/20 07:51 Pulse 94 10/21/20 07:51 Resp 17 10/21/20 07:51 BP 113/71 10/21/20 07:51 Pulse Ox 90 L 10/21/20 07:51 Intake & Output 10/20/20 10/21/20 10/21/20 18:59 06:59 18:59 Intake Total 1762.833 Output Total 1200 350 Balance 562.833 -350 Intake: Intake, IV Titration 1762.833 Amount ACETAMINOPHEN IV (For NPO 200 ) 1,000 mg In Empty Bag 1 bag @ 400 mls/hr IVPB Q6HR [facility] Rx#:[id number] D5-0.45% NaCl with KCl 1500 20Meq/l 1,000 ml @ 125 mls/hr IV .Q8H [facility] Rx#: [id number] Ropivacaine 300 mg In 62.833 Sodium Chloride 0.9% 190 ml @ Per Protocol EPIDURAL .Q0M PRN Rx#: [id number] Output: Urine 1200 350 Other: Voiding Method Indwelling Catheter Indwelling Catheter Indwelling Catheter # Bowel Movements 3 - Exam - Constitutional General appearance: average body habitus, cooperative - EENT Eyes: anicteric sclerae, EOMI, PERRLA, dentition normal, normal appearance ENT: NA/AT, normal oropharynx - Neck Neck: normal ROM - Respiratory Respiratory: bilateral: CTA, negative: diminished, dullness, rales, rhonchi - Cardiovascular Rhythm: regular Heart sounds: normal: S1, S2 Abnormal Heart Sounds: no systolic murmur, no diastolic murmur, no rub, no S3 Gallop, no S4 Gallop, no click, no other - Gastrointestinal General gastrointestinal: Positive bowel sounds, abdomen soft, nondistended, dressing clean dry intact - Integumentary Integumentary: normal, normal turgor - Neurologic Neurologic: CNII-XII intact, focal deficits - Musculoskeletal Musculoskeletal: strength equal bilaterally - Psychiatric Psychiatric: A&O x's 3, appropriate affect, intact judgment & insight - Labs CBC & Chem 7: 10/21/20 05:58 10/21/20 05:58 Labs: Abnormal Lab Results - Last 24 Hours (Table) 10/20/20 10/20/20 10/21/20 Range/Units 06:56 06:56 05:58 WBC 21.31 H 14.61 H (4.50-10.00) X 10*3/uL MCHC 31.1 L (32.0-37.0) g/dL Absolute Nucleated RBC 0.08 H (0.00-0.00) X 10*3/uL Immature Gran # 0.09 H (0.00-0.04) X 10*3/uL Neutrophils # 18.53 H 12.94 H (1.80-7.70) X 10*3/uL Monocytes # 1.07 H (0.20-1.00) X 10*3/uL Eosinophils # 0.45 H 0.01 L (0.04-0.35) X 10*3/uL NRBC/100 WBC Diff 0.4 H (0.0-0.0) /100 WBCS Chloride 110 H (96-109) mmol/L Carbon Dioxide 19.7 L (21.6-31.8) mmol/L Glucose 177 H (70-110) mg/dL Calcium (8.7-10.3) mg/dL 10/21/20 Range/Units 05:58 WBC (4.50-10.00) X 10*3/uL MCHC (32.0-37.0) g/dL Absolute Nucleated RBC (0.00-0.00) X 10*3/uL Immature Gran # (0.00-0.04) X 10*3/uL Neutrophils # (1.80-7.70) X 10*3/uL Monocytes # (0.20-1.00) X 10*3/uL Eosinophils # (0.04-0.35) X 10*3/uL NRBC/100 WBC Diff (0.0-0.0) /100 WBCS Chloride 111 H (96-109) mmol/L Carbon Dioxide 19.5 L (21.6-31.8) mmol/L Glucose 149 H (70-110) mg/dL Calcium 8.6 L (8.7-10.3) mg/dL Assessment and Plan Plan: 1. Colostomy reversal 10/19/2020 , postop day #2 with prior history of pn eumoperitoneum on from perforated diverticulitis in July 08, requiring sigmoid colectomy and end colostomy, patient currently is on epidural pain management, Harris catheter is in place, surgical incision is well, coaptated. Hold off Enbrel at this time, patient is not on prednisone prior to admission postop pain managementwith epidural pump, and Toradol 6 doses, for bridging treatment, patient unable to get other narcotics, possible Talwin for postoperative pain management, continue with Phenergan when necessary 2. Hypertension, hydralazine 10 mg IV every 6 when necessary, 4/160, when necessary for over 160 Hypertension, hypertensive cardiovascular disease. We'll restart amlodipine Norvasc 5 mg daily. 3. Rheumatoid arthritis under the care of Dr. Goldman. Enbrel and prednisone on hold. May use Plaquenil to breech if RA is not controlled 4. Gastroesophageal reflux disease. Continue Pepcid 20 twice a day. 5. Generalized osteoarthritis, stable. 6 Prior history of MRSA face, 07/08/2020 7. Chronic immunosuppressed patient, secondary to Enbrel monitor for wound healing process and nutrition 8. DVT prophylaxis heparin subcu Thank you Dr. Manriquez allowing us to pursue been the care of your patient. We are going to follow her with you in this current hospital stay, recommendations will be made based on her clinical progress. The above impression and plan of care have been discussed and directed by signing physician. Hannah Latif nurse practitioner acting as scribe for signing physician.
--- NOTE | 2020-10-21 11:03 | P.PN ---
Subjective Progress Note Date: 10/21/20 Principal diagnosis: Diverticulitis Patient doing better today. Her pain is improved. She had multiple loose stools with some dry heaves last night. Stools were brownish in color. She has had excellent urine output. She is afebrile. White blood cell count yesterday was 21 today down to 14. Feels somewhat bloated. Objective - Vital Signs Vital signs: Vital Signs Temp 98.3 F 10/21/20 07:51 Pulse 94 10/21/20 07:51 Resp 17 10/21/20 07:51 BP 113/71 10/21/20 07:51 Pulse Ox 90 L 10/21/20 07:51 Intake & Output 10/20/20 10/21/20 10/21/20 18:59 06:59 18:59 Intake Total 1762.833 Output Total 1200 350 Balance 562.833 -350 Intake: Intake, IV Titration 1762.833 Amount ACETAMINOPHEN IV (For NPO 200 ) 1,000 mg In Empty Bag 1 bag @ 400 mls/hr IVPB Q6HR [facility] Rx#:[id number] D5-0.45% NaCl with KCl 1500 20Meq/l 1,000 ml @ 125 mls/hr IV .Q8H [facility] Rx#: [id number] Ropivacaine 300 mg In 62.833 Sodium Chloride 0.9% 190 ml @ Per Protocol EPIDURAL .Q0M [facility] Rx#: [id number] Output: Urine 1200 350 Other: Voiding Method Indwelling Catheter Indwelling Catheter Indwelling Catheter # Bowel Movements 3 - Exam Abdomen: Soft, mild distention, dressing clean and dry, mild tenderness - Labs CBC & Chem 7: 10/21/20 05:58 10/21/20 05:58 Labs: Abnormal Lab Results - Last 24 Hours (Table) 10/20/20 10/20/20 10/21/20 Range/Units 06:56 06:56 05:58 WBC 21.31 H 14.61 H (4.50-10.00) X 10*3/uL MCHC 31.1 L (32.0-37.0) g/dL Absolute Nucleated RBC 0.08 H (0.00-0.00) X 10*3/uL Immature Gran # 0.09 H (0.00-0.04) X 10*3/uL Neutrophils # 18.53 H 12.94 H (1.80-7.70) X 10*3/uL Monocytes # 1.07 H (0.20-1.00) X 10*3/uL Eosinophils # 0.45 H 0.01 L (0.04-0.35) X 10*3/uL NRBC/100 WBC Diff 0.4 H (0.0-0.0) /100 WBCS Chloride 110 H (96-109) mmol/L Carbon Dioxide 19.7 L (21.6-31.8) mmol/L Glucose 177 H (70-110) mg/dL Calcium (8.7-10.3) mg/dL 10/21/20 Range/Units 05:58 WBC (4.50-10.00) X 10*3/uL MCHC (32.0-37.0) g/dL Absolute Nucleated RBC (0.00-0.00) X 10*3/uL Immature Gran # (0.00-0.04) X 10*3/uL Neutrophils # (1.80-7.70) X 10*3/uL Monocytes # (0.20-1.00) X 10*3/uL Eosinophils # (0.04-0.35) X 10*3/uL NRBC/100 WBC Diff (0.0-0.0) /100 WBCS Chloride 111 H (96-109) mmol/L Carbon Dioxide 19.5 L (21.6-31.8) mmol/L Glucose 149 H (70-110) mg/dL Calcium 8.6 L (8.7-10.3) mg/dL Assessment and Plan (1) Perforated diverticulum of large intestine Narrative/Plan: Patient improved today. Will start ice chips and popsicles. Monitor bowel f unction. Patient would like to discontinue the Entereg given these loose stools she had last night. Repeat labs tomorrow. Increase activity today. Current Visit: No Status: Acute Code(s): K57.20 - DVTRCLI OF LG INT W P ERFORATION AND ABSCESS W/O BLEEDING SNOMED Code(s): 827873311
[2020-10-21] MEDS: ALVIMOPAN 12 MG CAPSULE PO SCH (11:20)
[2020-10-21] MEDS: DEXTROSE 5%-0.45% NACL 1,000 ML IV SCH (15:14)
[2020-10-21] MEDS ORDERED: SCOPOLAMINE 1.5MG/72HR PATCH TRANSDERM SCH (19:00)
--- NOTE | 2020-10-21 19:30 | P.PN ---
Progress Note - Text 10/20/20 [id number] 59-year-old female status post colostomy reversal. Patient hasn't epidural catheter for postop pain control with the solution running at 10 mL an hour with no narcotics. Patient has numbness in her right thigh and her hip but believes that she is not getting much of pain relief the surgical site. She still insists on keeping the epidural. Plan to continue epidural infusion
--- NOTE | 2020-10-21 19:33 | P.PN ---
Progress Note - Text 10/21/20 5746 59-year-old female status post colostomy reversal by Dr. Lebron. Patient has an epidural catheter with the solution running at a 10 mL an hour. Complains of heaviness and numbness in the right thigh and right hip. Plan to DC epidural in a.m.
[2020-10-21] MEDS: ALPRAZolam 0.5 MG TAB PO PRN (23:11)
[2020-10-22] MEDS: ACETAMINOPHEN IV (For NPO) 1,000 MG in EMPTY BAG 1 BAG IVPB SCH ×3 (00:07→11:30)
[2020-10-22] MEDS: DEXTROSE 5%-0.45% NACL 1,000 ML IV SCH ×2 (00:51→07:34)
[2020-10-22] MEDS: KETOROLAC 15 MG/ML 1 ML VIAL IVP SCH ×4 (05:44→23:12)
--- NOTE | 2020-10-22 06:49 | P.PN ---
Progress Note - Text 10/22/20 636am 59-year-old female's status post colostomy reversal by Dr. Lebron. Patient has an epidural catheter for postop pain control with the solution running at 10 mL an hour and is strictly local anesthetic. Patient has a VAS of 4. Patient has been taking Tylenol Toradol and Xanax. She has been vomiting and feeling nauseous. Epidural to be DC'd today nurse informed
[2020-10-22] MEDS: amLODIPine 5 MG TAB PO SCH (07:32)
[2020-10-22] MEDS: SCOPOLAMINE 1.5MG/72HR PATCH TRANSDERM SCH (07:33)
[2020-10-22] MEDS: HEPARIN SODIUM,PORCINE/PF 5,000 UNIT/0.5 ML SYRINGE SQ SCH ×3 (07:33→23:12)
[2020-10-22] MEDS: FAMOTIDINE 20 MG/2 ML VIAL IV SCH (07:33)
[2020-10-22] MEDS: ONDANSETRON 4 MG/2 ML VIAL IVP PRN ×2 (09:20→16:22)
[2020-10-22] MEDS: PANTOPRAZOLE 40 MG/10 ML VIAL IVP SCH ×2 (09:21→19:56)
[2020-10-22] MEDS ORDERED: TRIMETHOBENZAMIDE 300 MG CAP PO PRN (09:58)
[2020-10-22 11:06] LABS: HGB 13.1 g/dL (12.0-15.0); MCH 29.3 pg (27.0-32.0); MCHC 32.8 g/dL (32.0-37.0); MCV 89.5 fL (80.0-97.0); Mean Platelet Volume 10.3 fL (9.5-12.2); Platelet Count 248 X 10*3/uL (140-440); RBC 4.47 X 10*6/uL (4.10-5.20); RDW 13.5 % (11.5-14.5); WBC 11.36 X 10*3/uL (4.50-10.00)
[2020-10-22 11:23] LABS: African American GFR (CKD) 123.6 (60.0-200.0); Albumin 3.3 g/dL (3.80-4.90); Albumin/Globulin Ratio 1.32 (1.60-3.17); Anion Gap 7.3 mmol/L (4.00-12.00); Calcium 8.5 mg/dL (8.7-10.3); Carbon Dioxide 25.7 mmol/L (21.6-31.8); Globulin 2.5 g/dL (1.6-3.3); Non-African American GFR(CKD) 106.7 (60.0-200.0); Potassium 4.3 mmol/L (3.5-5.5); Total Bilirubin 1.4 mg/dL (0.2-1.2); Total Protein 5.8 g/dL (6.2-8.2)
[2020-10-22] MEDS: DEXTROSE 5%-0.45% NACL 1,000 ML with SODIUM BICARB (1 MEQ/ML) 100 ML IV SCH ×4 (11:30→23:12)
[2020-10-22 11:34] LABS: Basophils # (A) 0.02 X 10*3/uL (0.00-0.10); Basophils % (A) 0.2 %; Eosinophils # (A) 0.04 X 10*3/uL (0.04-0.35); Eosinophils % (A) 0.4 %; Lymphocytes # (A) 1.04 X 10*3/uL (0.90-5.00); Lymphocytes % (A) 9.2 %; Monocytes # (A) 0.32 X 10*3/uL (0.20-1.00); Monocytes % (A) 2.8 %; Neutrophils # (A) 9.89 X 10*3/uL (1.80-7.70)
--- NOTE | 2020-10-22 11:57 | P.PN ---
<Alexandria Harley - Last Filed: 10/22/20 11:52> Subjective Progress Note Date: 10/22/20 CHIEF COMPLAINT: Perforated diverticulitis Diverticulitis HISTORY OF PRESENT ILLNESS: Status post colostomy reversal, mobilization of splenic flexure. Postop day #3. Patient is passing gas and having liquidy stools. She is complaining of nausea. She is having abdominal pain but reports that is controlled. She is currently nothing by mouth except for ice chips and popsicles. She is requesting to be started on clear liquid diet. She is also requesting to be switched from Pepcid to Protonix. She states the Pepcid does not work for her. Afebrile. WBC is down from 14.61-11.36 hemoglobin 13.1 epidural and Harris catheter discontinued today PHYSICAL EXAM: VITAL SIGNS: Reviewed. GENERAL: Well-developed in no acute distress. HEENT: No sclera icterus. Extraocular movements grossly intact. Moist buccal mucosa. Head is atraumatic, normocephalic. ABDOMEN: Soft. Mildly distended. Dressing clean dry and intact NEUROLOGIC: Alert and oriented. Cranial nerves II through XII grossly intact. ASSESSMENT: 1. Perforated diverticulitis status post colostomy reversal, mobilization of splenic flexure PLAN: -Patient is currently nothing by mouth except for ice chips and popsicles. -Continue antiemetics -Continue IV fluids -Epidural and Harris catheter will be discontinued today -Continue pain medication as needed -Encourage patient to use incentive spirometer -Encourage patient to increase activity -Add IV Protonix and discontinue Pepcid -GI prophylaxis subcu heparin Physician Commercial Real [employer] Manager note has been reviewed by physician. Signing provider agrees with the documented findings, assessment, and plan of care. Objective - Vital Signs Vital signs: Vital Signs Temp 97.9 F 10/22/20 07:56 Pulse 94 10/22/20 07:56 Resp 18 10/22/20 07:56 BP 164/90 10/22/20 07:56 Pulse Ox 90 L 10/22/20 07:56 Intake & Output 10/21/20 10/22/20 10/22/20 18:59 06:59 18:59 Intake Total 250 Output Total 650 Balance -650 250 Intake: Intake, IV Titration 250 Amount Ropivacaine 300 mg In 250 Sodium Chloride 0.9% 190 ml @ Per Protocol EPIDURAL .Q0M PRN Rx#: [id number] Output: Urine 650 Other: Voiding Method Indwelling Catheter Indwelling Catheter Indwelling Catheter # Bowel Movements 4 - Labs CBC & Chem 7: 10/22/20 06:32 10/22/20 06:32 Labs: Abnormal Lab Results - Last 24 Hours (Table) 10/22/20 10/22/20 Range/Units 06:32 06:32 WBC 11.36 H (4.50-10.00) X 10*3/uL Immature Gran # 0.05 H (0.00-0.04) X 10*3/uL Neutrophils # 9.89 H (1.80-7.70) X 10*3/uL BUN 7.0 L (9.0-27.0) mg/dL Creatinine 0.5 L (0.6-1.5) mg/dL Glucose 128 H (70-110) mg/dL Calcium 8.5 L (8.7-10.3) mg/dL Total Bilirubin 1.4 H (0.2-1.2) mg/dL Total Protein 5.8 L (6.2-8.2) g/dL Albumin 3.30 L (3.80-4.90) g/dL Albumin/Globulin Ratio 1.32 L (1.60-3.17) g/dL <Milind Lebron - Last Filed: 10/22/20 16:27> Subjective As above. Patient still complaining of nausea and some dry heaves. She has had some liquid stools. Pain is 2 out of 10 unless she is ambulating. Epidural and Harris catheter removed. Patient noticed no difference after epidural was removed. Continue clear liquids. Will add saltine crackers. Continue increasing activity. Objective - Vital Signs Vital signs: Vital Signs Temp 97.9 F 10/22/20 07:56 Pulse 94 10/22/20 07:56 Resp 18 10/22/20 07:56 BP 164/90 10/22/20 07:56 Pulse Ox 90 L 10/22/20 07:56 Intake & Output 10/21/20 10/22/20 10/22/20 18:59 06:59 18:59 Intake Total 250 Output Total 650 Balance -650 250 Intake: Intake, IV Titration 250 Amount Ropivacaine 300 mg In 250 Sodium Chloride 0.9% 190 ml @ Per Protocol EPIDURAL .Q0M PRN Rx#: [id number] Output: Urine 650 Other: Voiding Method Indwelling Catheter Indwelling Catheter Indwelling Catheter # Bowel Movements 4 - Labs CBC & Chem 7: 10/22/20 06:32 10/22/20 06:32 Labs: Abnormal Lab Results - Last 24 Hours (Table) 10/22/20 10/22/20 Range/Units 06:32 06:32 WBC 11.36 H (4.50-10.00) X 10*3/uL Immature Gran # 0.05 H (0.00-0.04) X 10*3/uL Neutrophils # 9.89 H (1.80-7.70) X 10*3/uL BUN 7.0 L (9.0-27.0) mg/dL Creatinine 0.5 L (0.6-1.5) mg/dL Glucose 128 H (70-110) mg/dL Calcium 8.5 L (8.7-10.3) mg/dL Total Bilirubin 1.4 H (0.2-1.2) mg/dL Total Protein 5.8 L (6.2-8.2) g/dL Albumin 3.30 L (3.80-4.90) g/dL Albumin/Globulin Ratio 1.32 L (1.60-3.17) g/dL Assessment and Plan (1) Perforated diverticulum of large intestine Current Visit: No Status: Acute Code(s): K57.20 - DVTRCLI OF LG INT W PERFORATION AND ABSCESS W/O BLEEDING SNOMED Code(s): 271666410
--- NOTE | 2020-10-22 15:19 | P.PN ---
Subjective Progress Note Date: 10/22/20 HISTORY OF PRESENT ILLNESS This is a 59-year-old female patient of Dr. Cisneros with past medical history significant for hypertension and hypertensive cardiovascular di sease with left ventricular hypertrophy, osteoarthritis, gastroesophageal reflux disease, diverticulosis, rheumatoid arthritis diagnosed in 2005 on Enbrel and followed by Dr. Goldman. Patient was hospitalized July 03 to July 05 for sepsis related to facial cellulitis and an immunocompromised host. Thereafter, she had some abdominal pain, for which CAT scan was concerning for perforated sigmoid diverticula, requiring exploratory appendectomy and sigmoid colectomy and end colostomy, 07/08/2020. She now comes in for colostomy reversal, for which Dr. Lebron has performed these on 10/19/2020. Patient has an epidural pain pump, however she is complaining of significant abdominal pain with abdominal distention, no nausea however she is up scopolamine patch, she has uncontrolled pain, no flatus, patient currently is nothing by mouth except medications. Patient denies any fever or chills or shortness of breath no chest pain, no cough, however patient's fearful of getting any nausea vomiting, acid technically hurts even more. She does have ALLERGIES to hydrocodone, oxycodone, hydromorphone, plan for pain management would be tramadol, and the current epidural pain pump. 10/21: Patient evaluated, laying comfortably in the bed. Patient reports she's had a few bouts of diarrhea, she denies any nausea or vomiting. She is tolerating ice chips and popsicles. Her abdomen is soft, nondistended, dressing is clean dry and intact, she has good bowel sounds. Laboratory values showed WB C 14.6, hemoglobin 14.2, sodium 141, potassium 5.3, BUN 9, creatinine 0.7. Vital signs are stable temperature of 98.3, heart rate 94, respiratory rate of 17, blood pressure 113/71, pulse ox 90% on room air. Incentive spirometer at bedside encouraged its use. 10/22: She states that she has been on long-term Protonix and wishes for this to be resumed and Pepcid discontinued which appears to have been done by general surgery. Patient is anxious to start eating. She states she is burping and [place] flatulence along with diarrhea. She has tenderness to the bilateral lower quadrants. Blood pressure has been elevated but patient states that all the readings are done after she has an emesis. Epidural has been removed. Anticipate Harris catheter to be removed today. Bicarb added to IV fluids. REVIEW OF SYSTEMS Constitutional: No fever, no chills, no night sweats. No weight change. No weakness, fatigue or lethargy. No daytime sleepiness. EENT: No headache. No blurred vision or double vision, no loss of vision. No loss of Hearing, no ringing in the ears, no dizziness. No nasal drainage or congestion. No epistaxis. No sore throat. Lungs: No shortness of breath, cough, no sputum production. No wheezing. Cardiovascular: No chest pain, no lower extremity edema. No palpitations. No paroxysmal nocturnal dyspnea. No orthopnea. No lightheadedness or dizziness. No syncopal episodes. Abdominal: Reports abdominal pain. No nausea, vomiting. No diarrhea. No constipation. No bloody or tarry stools denies loss of appetite. Genitourinary: No dysuria, increased frequency, urgency. No urinary retention. Musculoskeletal: No myalgias. No muscle weakness, no gait dysfunction, no frequent falls. No back pain. No neck pain. Integumentary: No wounds, no lesions. No rash or pruritus. No unusual bruising. No change in hair or nails. Neurologic: No aphasia. No facial droop. No change in mentation. No head injury. No headache. No paralysis. No paresthesia. Psychiatric: No depression. No anxiety. Endocrine: No abnormal blood sugars. PHYSICAL EXAMINATION Gen: This is a 59-year-old female. Patient is resting in bed and appears to be comfortable and in no acute distress. HEENT: Head is atraumatic, normocephalic. Pupils equal, round. Sclerae is anicteric. NECK: Supple. No JVD. No lymphadenopathy. No thyromegaly. LUNGS: Clear to auscultation. No wheezes or rhonchi. No intercostal retractions. HEART: Regular rate and rhythm. No murmur. ABDOMEN: Mild distention, Soft. Bowel sounds are present. No masses. Mild bilateral lower quadrant tenderness. EXTREMITIES: No pedal edema. No calf tenderness. Dorsalis pedis palpable bilaterally. NEUROLOGICAL: Patient is awake, alert and oriented x3. Cranial nerves 2 through 12 are grossly intact. ASSESSMENT AND PLAN 1. Colostomy reversal 10/19/2020, postop day #3 with prior history of pneumoperitoneum on from perforated diverticulitis in July 08, requiring sigmoid colectomy and end colostomy. Continue Cepacol, dextrose normal saline with sodium bicarb at 125 mL per hour, Reglan 10 mg IV push every 6 hours as needed, Zofran as needed for nausea, scopolamine patch as needed, tramadol for pain. Anticipate that Harris catheter will be removed today and diet advanced. 2. Hypertension, hypertensive cardiovascular disease. Continue hydralazine 10 mg IV push every 6 hours as needed for systolic blood pressure greater than 160. Patient is been resumed on Norvasc 5 mg daily. 3. Rheumatoid arthritis under the care of Dr. Goldman. Enbrel and prednisone on hold. May use Plaquenil to breech if RA is not controlled 4. Gastroesophageal reflux disease. Continue Pepcid 20 twice a day. 5. Generalized osteoarthritis, stable. 6. 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 Chronic immunosuppressed patient, secondary to Enbrel monitor for wound healing process and nutrition 8. DVT prophylaxis heparin subcu 9. COVID-19 testing negative. Patient has been hospitalized during a pandemic. DISCHARGE PLAN home. Impression and plan of care have been directed as dictated by the signing physician. Renita Ornelas nurse practitioner acting as scribe for signing physician. Objective - Vital Signs Vital signs: Vital Signs Temp 97.9 F 10/22/20 07:56 Pulse 94 10/22/20 07:56 Resp 18 10/22/20 07:56 BP 164/90 10/22/20 07:56 Pulse Ox 90 L 10/22/20 07:56 Intake & Output 10/21/20 10/22/20 10/22/20 18:59 06:59 18:59 Intake Total 250 Output Total 650 Balance -650 250 Intake: Intake, IV Titration 250 Amount Ropivacaine 300 mg In 250 Sodium Chloride 0.9% 190 ml @ Per Protocol EPIDURAL .Q0M PRN Rx#: [id number] Output: Urine 650 Other: Voiding Method Indwelling Catheter Indwelling Catheter Indwelling Catheter # Bowel Movements 4 - Labs CBC & Chem 7: 10/22/20 06:32 10/22/20 06:32 Labs: Abnormal Lab Results - Last 24 Hours (Table) 10/21/20 Range/Units 05:58 Chloride 111 H (96-109) mmol/L Carbon Dioxide 19.5 L (21.6-31.8) mmol/L Glucose 149 H (70-110) mg/dL Calcium 8.6 L (8.7-10.3) mg/dL
--- NOTE | 2020-10-22 16:55 | XR ---
EXAMINATION TYPE: XR chest 2V DATE OF EXAM: 10/22/2020 COMPARISON: Chest x-ray July 08, 2020 HISTORY: Hypoxia. TECHNIQUE: Frontal and lateral views of the chest are obtained. FINDINGS: There is patchy left greater than right bibasilar opacity. The cardiac silhouette size is is stable and within normal limits. The osseous structures are intact. Prominent gas-filled bowel loops in the central abdomen. IMPRESSION: Patchy left greater than right bibasilar atelectasis and/or developing infiltrate.
[2020-10-22] MEDS ORDERED: PANTOPRAZOLE 40 MG/10 ML VIAL IVP SCH (21:00)
[2020-10-22] MEDS: ALPRAZolam 0.5 MG TAB PO PRN (22:07)
[2020-10-23] MEDS: KETOROLAC 15 MG/ML 1 ML VIAL IVP SCH ×4 (05:46→23:36)
[2020-10-23] MEDS: HEPARIN SODIUM,PORCINE/PF 5,000 UNIT/0.5 ML SYRINGE SQ SCH ×3 (07:28→23:37)
[2020-10-23] MEDS: PANTOPRAZOLE 40 MG/10 ML VIAL IVP SCH ×2 (07:28→20:12)
[2020-10-23] MEDS: amLODIPine 5 MG TAB PO SCH (07:28)
[2020-10-23] MEDS: DEXTROSE 5%-0.45% NACL 1,000 ML with SODIUM BICARB (1 MEQ/ML) 100 ML IV SCH ×4 (08:05→11:27)
[2020-10-23 10:21] LABS: Basophils # (A) 0.03 X 10*3/uL (0.00-0.10); Basophils % (A) 0.2 %; Eosinophils # (A) 0.06 X 10*3/uL (0.04-0.35); Eosinophils % (A) 0.5 %; HCT 38.2 % (37.2-46.3); HGB 12.6 g/dL (12.0-15.0); Lymphocytes # (A) 1.11 X 10*3/uL (0.90-5.00); Lymphocytes % (A) 8.7 %; MCH 29.2 pg (27.0-32.0); MCV 88.6 fL (80.0-97.0); Mean Platelet Volume 10.4 fL (9.5-12.2); Monocytes # (A) 0.29 X 10*3/uL (0.20-1.00); Monocytes % (A) 2.3 %; Neutrophils # (A) 11.18 X 10*3/uL (1.80-7.70); Neutrophils % (A) 87.8 %; Platelet Count 258 X 10*3/uL (140-440); RBC 4.31 X 10*6/uL (4.10-5.20); RDW 13.3 % (11.5-14.5); WBC 12.73 X 10*3/uL (4.50-10.00)
--- NOTE | 2020-10-23 11:27 | P.PN ---
<CarmenmelissaAlexandria - Last Filed: 10/23/20 11:23> Subjective Progress Note Date: 10/23/20 CHIEF COMPLAINT: Perforated diverticulitis Diverticulitis HISTORY OF PRESENT ILLNESS: Status post colostomy reversal, mobilization of splenic flexure. Postop day #4. Patient reports improvement in her pain. She is tolerating clear liquids with saltines. Her nausea has resolved. She is having liquidy stools and passing gas. Oxygen saturation decreased to about 88 on room air. And patient was put on oxygen 3 L satting at 92%. Chest x-ray showed patchy left greater than right bibasilar atelectasis and/or developing infiltrate. Patient denies cough or feeling short of breath. She's afebrile. She's had episodes of tachycardia. Heart rate was 107 by pulse ox monitoring. Medicine did place patient on Rocephin. Patient has been ambulating. Afebrile. WBC is up from 11.36-12.73 hemoglobin 12.6 PHYSICAL EXAM: VITAL SIGNS: Reviewed. GENERAL: Well-developed in no acute distress. HEENT: No sclera icterus. Extraocular movements grossly intact. Moist buccal mucosa. Head is atraumatic, normocephalic. ABDOMEN: Soft. Mildly distended. Dressing clean dry and intact NEUROLOGIC: Alert and oriented. Cranial nerves II through XII grossly intact. ASSESSMENT: 1. Perforated diverticulitis status post colostomy reversal, mobilization of splenic flexure PLAN: -Continue clear liquid diet -Continue IV fluids -Continue pain medication as needed -Encourage patient to use incentive spirometer -Encourage patient to increase activity -GI prophylaxis Protonix and DVT prophylaxis subcu heparin Physician Pen And Pencil Repairer note has been reviewed by physician. Signing provider agrees with the documented findings, assessment, and plan of care. Objective - Vital Signs Vital signs: Vital Signs Temp 98.4 F 10/23/20 08:00 Pulse 119 H 10/23/20 08:00 Resp 20 10/23/20 08:00 BP 129/82 10/23/20 08:00 Pulse Ox 91 L 10/23/20 08:00 Intake & Output 10/22/20 10/23/20 10/23/20 18:59 06:59 18:59 Intake Total 250 Balance 250 Intake: Intake, IV Titration 250 Amount Ropivacaine 300 mg In 250 Sodium Chloride 0.9% 190 ml @ Per Protocol EPIDURAL .Q0M PRN Rx#: [id number] Other: Voiding Method Indwelling Catheter Toilet Toilet - Labs CBC & Chem 7: 10/23/20 05:37 10/22/20 06:32 Labs: Abnormal Lab Results - Last 24 Hours (Table) 10/22/20 10/22/20 10/23/20 Range/Units 06:32 06:32 05:37 WBC 12.73 H (4.50-10.00) X 10*3/uL Immature Gran # 0.05 H 0.06 H (0.00-0.04) X 10*3/uL Neutrophils # 9.89 H 11.18 H (1.80-7.70) X 10*3/uL BUN 7.0 L (9.0-27.0) mg/dL Creatinine 0.5 L (0.6-1.5) mg/dL Glucose 128 H (70-110) mg/dL Calcium 8.5 L (8.7-10.3) mg/dL Total Bilirubin 1.4 H (0.2-1.2) mg/dL Total Protein 5.8 L (6.2-8.2) g/dL Albumin 3.30 L (3.80-4.90) g/dL Albumin/Globulin Ratio 1.32 L (1.60-3.17) g/dL <Milind Lebron - Last Filed: 10/23/20 15:25> Subjective As above. Patient complaining of anxiety. Takes Xanax at home. Patient has been tachycardic today. White blood cell count up slightly. Chest x-ray shows possible developing infiltrate and she was started on antibiotics. Chest x-ray shows some air filled bowel loops. Says her pain is improving daily. She is still having bowel movements. Her nausea and dry heaves have resolved. She w ould like more to eat. Will increase to full liquids. Continue increasing activity. Objective - Vital Signs Vital signs: Vital Signs Temp 99.6 F 10/23/20 13:27 Pulse 106 H 10/23/20 13:27 Resp 19 10/23/20 13:27 BP 132/78 10/23/20 13:27 Pulse Ox 93 L 10/23/20 13:27 Intake & Output 10/22/20 10/23/20 10/23/20 18:59 06:59 18:59 Intake Total 250 Balance 250 Intake: Intake, IV Titration 250 Amount Ropivacaine 300 mg In 250 Sodium Chloride 0.9% 190 ml @ Per Protocol EPIDURAL .Q0M PRN Rx#: [id number] Other: Voiding Method Indwelling Catheter Toilet Toilet - Labs CBC & Chem 7: 10/23/20 05:37 10/23/20 05:37 Labs: Abnormal Lab Results - Last 24 Hours (Table) 10/23/20 10/23/20 Range/Units 05:37 05:37 WBC 12.73 H (4.50-10.00) X 10*3/uL Immature Gran # 0.06 H (0.00-0.04) X 10*3/uL Neutrophils # 11.18 H (1.80-7.70) X 10*3/uL Anion Gap 15.90 H (4.00-12.00) mmol/L BUN 7.0 L (9.0-27.0) mg/dL Creatinine 0.5 L (0.6-1.5) mg/dL Glucose 125 H (70-110) mg/dL Calcium 8.3 L (8.7-10.3) mg/dL Assessment and Plan (1) Perforated diverticulum of large intestine Current Visit: No Status: Acute Code(s): K57.20 - DVTRCLI OF LG INT W PERFORATION AND ABSCESS W/O BLEEDING SNOMED Code(s): 010882734
--- NOTE | 2020-10-23 14:20 | P.PN ---
Subjective Progress Note Date: 10/23/20 HISTORY OF PRESENT ILLNESS This is a 59-year-old female patient of Dr. Cisneros with past medical history significant for hypertension and hypertensive cardiovascular di sease with left ventricular hypertrophy, osteoarthritis, gastroesophageal reflux disease, diverticulosis, rheumatoid arthritis diagnosed in 2005 on Enbrel and followed by Dr. Goldman. Patient was hospitalized July 03 to July 05 for sepsis related to facial cellulitis and an immunocompromised host. Thereafter, she had some abdominal pain, for which CAT scan was concerning for perforated sigmoid diverticula, requiring exploratory appendectomy and sigmoid colectomy and end colostomy, 07/08/2020. She now comes in for colostomy reversal, for which Dr. Lebron has performed these on 10/19/2020. Patient has an epidural pain pump, however she is complaining of significant abdominal pain with abdominal distention, no nausea however she is up scopolamine patch, she has uncontrolled pain, no flatus, patient currently is nothing by mouth except medications. Patient denies any fever or chills or shortness of breath no chest pain, no cough, however patient's fearful of getting any nausea vomiting, acid technically hurts even more. She does have ALLERGIES to hydrocodone, oxycodone, hydromorphone, plan for pain management would be tramadol, and the current epidural pain pump. 10/21: Patient evaluated, laying comfortably in the bed. Patient reports she's had a few bouts of diarrhea, she denies any nausea or vomiting. She is tolerating ice chips and popsicles. Her abdomen is soft, nondistended, dressing is clean dry and intact, she has good bowel sounds. Laboratory values showed WB C 14.6, hemoglobin 14.2, sodium 141, potassium 5.3, BUN 9, creatinine 0.7. Vital signs are stable temperature of 98.3, heart rate 94, respiratory rate of 17, blood pressure 113/71, pulse ox 90% on room air. Incentive spirometer at bedside encouraged its use. 10/22: She states that she has been on long-term Protonix and wishes for this to be resumed and Pepcid discontinued which appears to have been done by general surgery. Patient is anxious to start eating. She states she is burping and [place] flatulence along with diarrhea. She has tenderness to the bilateral lower quadrants. Blood pressure has been elevated but patient states that all the readings are done after she has an emesis. Epidural has been removed. Anticipate Harris catheter to be removed today. Bicarb added to IV fluids. 10/23: Patient pulse ox continues to run on the low side 88-91% on room air. Patient states she had low pulse ox following her previous surgery. She denies feeling short of breath, no cough, no sputum production. She is only reaching 500 on incentive spirometry but at home prior to surgery, patient was reaching 3000. She has been afebrile, temperature max 99.7, heart rate 119, blood pressu re 129/82. Chest x-ray reveals patchy left greater than right bibasilar atelectasis and/or developing infiltrate. Patient started on ceftriaxone for possible early pneumonia. Repeat blood work reveals WBC 12.7, hemoglobin 12.6, platelet count 258. Patient is currently on clear liquid diet and tolerating. Harris catheter was removed yesterday and patient is voiding on her own. REVIEW OF SYSTEMS Constitutional: No fever, no chills, no night sweats. No weight change. No weakness, fatigue or lethargy. No daytime sleepiness. EENT: No headache. No blurred vision or double vision, no loss of vision. No loss of Hearing, no ringing in the ears, no dizziness. No nasal drainage or congestion. No epistaxis. No sore throat. Lungs: No shortness of breath, cough, no sputum production. No wheezing. Cardiovascular: No chest pain, no lower extremity edema. No palpitations. No paroxysmal nocturnal dyspnea. No orthopnea. No lightheadedness or dizziness. No syncopal episodes. Abdominal: Reports abdominal pain. No nausea, vomiting. No diarrhea. No constipation. No bloody or tarry stools denies loss of appetite. Genitourinary: No dysuria, increased frequency, urgency. No urinary retention. Musculoskeletal: No myalgias. No muscle weakness, no gait dysfunction, no frequent falls. No back pain. No neck pain. Integumentary: No wounds, no lesions. No rash or pruritus. No unusual bruising. Neurologic: No aphasia. No facial droop. No change in mentation. No head injury. No headache. No paralysis. No paresthesia. Psychiatric: No depression. No anxiety. Endocrine: No abnormal blood sugars. PHYSICAL EXAMINATION Gen: This is a 59-year-old female. Patient is resting in bed and appears to be comfortable and in no acute distress. HEENT: Head is atraumatic, normocephalic. Pupils equal, round. Sclerae is ani cteric. NECK: Supple. No JVD. No lymphadenopathy. No thyromegaly. LUNGS: Clear to auscultation. No wheezes or rhonchi. No intercostal retractions. HEART: Regular rate and rhythm. No murmur. ABDOMEN: Mild distention, Soft. Bowel sounds are present. No masses. No tenderness. Dressing clean dry and intact. EXTREMITIES: No pedal edema. No calf tenderness. Dorsalis pedis palpable bilaterally. NEUROLOGICAL: Patient is awake, alert and oriented x3. Cranial nerves 2 through 12 are grossly intact. ASSESSMENT AND PLAN 1. Colostomy reversal 10/19/2020, postop day #3 with prior history of pneumoperitoneum on from perforated diverticulitis in July 08, requiring sigm oid colectomy and end colostomy. Continue Cepacol, dextrose normal saline with sodium bicarb at 125 mL per hour, Reglan 10 mg IV push every 6 hours as needed, Zofran as needed for nausea, scopolamine patch as needed, tramadol for pain. Continue clear liquid diet. 2. Hypertension, hypertensive cardiovascular disease. Continue hydralazine 10 mg IV push every 6 hours as needed for systolic blood pressure greater than 160. Patient is been resumed on Norvasc 5 mg daily. 3. Rheumatoid arthritis under the care of Dr. Goldman. Enbrel and prednisone on hold. May use Plaquenil to breech if RA is not controlled 4. Gastroesophageal reflux disease. Continue Pepcid 20 twice a day. 5. Generalized osteoarthritis, stable. 6. 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 Chronic immunosuppressed patient, secondary to Enbrel monitor for wound healing process and nutrition 8. DVT prophylaxis heparin subcu 9. COVID-19 testing negative. Patient has been hospitalized during a pandemic. DISCHARGE PLAN home. Impression and plan of care have been directed as dictated by the signing physician. Renita Ornelas nurse practitioner acting as scribe for signing luan pratt. Objective - Vital Signs Vital signs: Vital Signs Temp 98.4 F 10/23/20 08:00 Pulse 119 H 10/23/20 08:00 Resp 20 10/23/20 08:00 BP 129/82 10/23/20 08:00 Pulse Ox 91 L 10/23/20 08:00 Intake & Output 10/22/20 10/23/20 10/23/20 18:59 06:59 18:59 Intake Total 250 Balance 250 Intake: Intake, IV Titration 250 Amount Ropivacaine 300 mg In 250 Sodium Chloride 0.9% 190 ml @ Per Protocol EPIDURAL .Q0M PRN Rx#: [id number] Other: Voiding Method Indwelling Catheter Toilet Toilet - Labs CBC & Chem 7: 10/23/20 05:37 10/22/20 06:32 Labs: Abnormal Lab Results - Last 24 Hours (Table) 10/22/20 10/22/20 Range/Units 06:32 06:32 WBC 11.36 H (4.50-10.00) X 10*3/uL Immature Gran # 0.05 H (0.00-0.04) X 10*3/uL Neutrophils # 9.89 H (1.80-7.70) X 10*3/uL BUN 7.0 L (9.0-27.0) mg/dL Creatinine 0.5 L (0.6-1.5) mg/dL Glucose 128 H (70-110) mg/dL Calcium 8.5 L (8.7-10.3) mg/dL Total Bilirubin 1.4 H (0.2-1.2) mg/dL Total Protein 5.8 L (6.2-8.2) g/dL Albumin 3.30 L (3.80-4.90) g/dL Albumin/Globulin Ratio 1.32 L (1.60-3.17) g/dL
[2020-10-23 14:39] LABS: African American GFR (CKD) 123.6 (60.0-200.0); Anion Gap 15.9 mmol/L (4.00-12.00); Calcium 8.3 mg/dL (8.7-10.3); Carbon Dioxide 24.1 mmol/L (21.6-31.8); Non-African American GFR(CKD) 106.7 (60.0-200.0); Potassium 3.5 mmol/L (3.5-5.5)
[2020-10-23] MEDS: ALPRAZolam 0.5 MG TAB PO PRN (23:36)
[2020-10-24] MEDS: DEXTROSE 5%-0.45% NACL 1,000 ML with SODIUM BICARB (1 MEQ/ML) 100 ML IV SCH ×4 (00:16→09:57)
[2020-10-24] MEDS: KETOROLAC 15 MG/ML 1 ML VIAL IVP SCH ×3 (06:05→18:55)
[2020-10-24] MEDS: HEPARIN SODIUM,PORCINE/PF 5,000 UNIT/0.5 ML SYRINGE SQ SCH ×2 (08:09→15:19)
[2020-10-24] MEDS: amLODIPine 5 MG TAB PO SCH (08:09)
[2020-10-24] MEDS: PANTOPRAZOLE 40 MG/10 ML VIAL IVP SCH ×2 (08:09→21:54)
[2020-10-24 09:38] LABS: African American GFR (CKD) >90 (>60 ml/min/1.73 sqM); Anion Gap 7 mmol/L; Blood Urea Nitrogen 7 mg/dL (7-17); Carbon Dioxide 31 mmol/L (22-30); Chloride 95 mmol/L (98-107); Glucose 113 mg/dL (74-99); Non-African American GFR(CKD) >90 (>60 ml/min/1.73 sqM); Sodium 133 mmol/L (137-145)
[2020-10-24] MEDS ORDERED: IPRATROPIUM-ALBUTEROL 3 ML NEB INHALATION PRN (09:47)
[2020-10-24] MEDS ORDERED: RX INFO: IV CONTRAST WAS GIVEN 1 EACH MISC MISCELLANE PRN (09:49)
[2020-10-24 10:08] LABS: Potassium 2.7 mmol/L (3.5-5.1)
[2020-10-24 10:12] LABS: Basophils % (A) 0 %; Eosinophils # (A) 0.1 k/uL (0-0.7); Eosinophils % (A) 1 %; HCT 36.8 % (34.0-46.0); Lymphocytes # (A) 1.3 k/uL (1.0-4.8); Lymphocytes % (A) 11 %; MCH 28.6 pg (25.0-35.0); MCHC 32.3 g/dL (31.0-37.0); MCV 88.8 fL (80.0-100.0); Mean Platelet Volume 7.7; Monocytes # (A) 0.4 k/uL (0-1.0); Monocytes % (A) 3 %; Neutrophils # (A) 10.1 k/uL (1.3-7.7); Neutrophils % (A) 83 %; Platelet Count 264 k/uL (150-450); RBC 4.15 m/uL (3.80-5.40); RDW 13.7 % (11.5-15.5); WBC 12.1 k/uL (3.8-10.6)
[2020-10-24 10:17] LABS: HGB 11.9 gm/dL (11.4-16.0)
[2020-10-24] MEDS ORDERED: POTASSIUM CHLORIDE 10 MEQ in WATER FOR INJECTION 1 100ML.BAG IVPB SCH (11:00)
[2020-10-24] MEDS: POTASSIUM CHLORIDE ER 20 MEQ TAB.ER PO SCH ×3 (11:10→15:17)
--- NOTE | 2020-10-24 11:38 | P.PN ---
<Alexandria Harley - Last Filed: 10/24/20 11:34> Subjective Progress Note Date: 10/24/20 CHIEF COMPLAINT: Perforated diverticulitis Diverticulitis HISTORY OF PRESENT ILLNESS: Status post colostomy reversal, mobilization of splenic flexure. Postop day #5. Patient is lying in bed comfortably. She reports that her pain is controlled. She is having liquidy bowel movements. They are becoming more formed. She is passing gas. Her nausea is improved. She is tolerating full liquid diet. She's asking for her diet to be advanced. She is on antibiotics for possible pneumonia. She remains on oxygen . She is on 2 L satting at 90%. She's afebrile. Heart rate is better at 98. WBC 12.1 hemoglobin 11.9 sodium 133 potassium is 2.7 PHYSICAL EXAM: VITAL SIGNS: Reviewed. GENERAL: Well-developed in no acute distress. HEENT: No sclera icterus. Extraocular movements grossly intact. Moist buccal mucosa. Head is atraumatic, normocephalic. ABDOMEN: Soft. Mildly distended. Dressing clean dry and intact NEUROLOGIC: Alert and oriented. Cranial nerves II through XII grossly intact. ASSESSMENT: 1. Perforated diverticulitis status post colostomy reversal, mobilization of splenic flexure 2. Hypokalemia 3. Anxiety continue Xanax as needed PLAN: -Continue full liquids -Potassium being replaced -Continue pain medication as needed -Encourage patient to use incentive spirometer -Encourage patient to increase activity -GI prophylaxis Protonix and DVT prophylaxis subcu heparin Physician Tube Man note has been reviewed by physician. Signing provider agrees with the documented findings, assessment, and plan of care. Objective - Vital Signs Vital signs: Vital Signs Temp 99.4 F 10/24/20 08:00 Pulse 98 10/24/20 08:00 Resp 16 10/24/20 08:00 BP 116/69 10/24/20 08:00 Pulse Ox 90 L 10/24/20 08:00 Intake & Output 10/23/20 10/24/20 10/24/20 18:59 06:59 18:59 Other: Voiding Method Toilet Toilet - Labs CBC & Chem 7: 10/24/20 08:55 10/24/20 08:55 Labs: Abnormal Lab Results - Last 24 Hours (Table) 10/23/20 10/24/20 10/24/20 Range/Units 05:37 08:55 08:55 WBC 12.1 H (3.8-10.6) k/uL Neutrophils # 10.1 H (1.3-7.7) k/uL Sodium 133 L (137-145) mmol/L Potassium 2.7 L* (3.5-5.1) mmol/L Chloride 95 L (98-107) mmol/L Carbon Dioxide 31 H (22-30) mmol/L Anion Gap 15.90 H (4.00-12.00) mmol/L BUN 7.0 L (9.0-27.0) mg/dL Creatinine 0.5 L (0.6-1.5) mg/dL Glucose 125 H 113 H (70-110) mg/dL Calcium 8.3 L 8.0 L (8.7-10.3) mg/dL <Milind Lebron - Last Filed: 10/24/20 12:43> Subjective Patient says her shortness of breath is increased today. Her tachycardia is improved. Her anxiety seems to be better. Denies abdominal pain. No nausea or vomiting. Tolerating full liquids and asking for solid foods. She went for CT chest to evaluate for pulmonary embolism. No obvious pulmonary imposing the seen. Continue pulmonary toilet. Continue increasing activity. Gradually advance diet. Objective - Vital Signs Vital signs: Vital Signs Temp 99.4 F 10/24/20 08:00 Pulse 98 10/24/20 08:00 Resp 16 10/24/20 08:00 BP 116/69 10/24/20 08:00 Pulse Ox 90 L 10/24/20 08:00 Intake & Output 10/23/20 10/24/20 10/24/20 18:59 06:59 18:59 Other: Voiding Method Toilet Toilet - Labs CBC & Chem 7: 10/24/20 08:55 10/24/20 08:55 Labs: Abnormal Lab Results - Last 24 Hours (Table) 10/23/20 10/24/20 10/24/20 Range/Units 05:37 08:55 08:55 WBC 12.1 H (3.8-10.6) k/uL Neutrophils # 10.1 H (1.3-7.7) k/uL Sodium 133 L (137-145) mmol/L Potassium 2.7 L* (3.5-5.1) mmol/L Chloride 95 L (98-107) mmol/L Carbon Dioxide 31 H (22-30) mmol/L Anion Gap 15.90 H (4.00-12.00) mmol/L BUN 7.0 L (9.0-27.0) mg/dL Creatinine 0.5 L (0.6-1.5) mg/dL Glucose 125 H 113 H (70-110) mg/dL Calcium 8.3 L 8.0 L (8.7-10.3) mg/dL Assessment and Plan (1) Perforated diverticulum of large intestine Current Visit: No Status: Acute Code(s): K57.20 - DVTRCLI OF LG INT W PERFORATION AND ABSCESS W/O BLEEDING SNOMED Code(s): 417523336
--- NOTE | 2020-10-24 12:07 | CT ---
EXAMINATION TYPE: CT angio chest DATE OF EXAM: 10/24/2020 COMPARISON: CT chest 07/06/2020, chest x-ray 10/22/2020 HISTORY: Hypoxia CT DLP: 247.1 mGycm Automated exposure control for dose reduction was used. CONTRAST: CTA scan of the thorax is performed with IV Contrast, patient injected with 73 mL of Isovue 370, pulm onary embolism protocol. MIP images are created and reviewed. 3D reconstructed images are created o n an independent workstation and reviewed. FINDINGS: LUNGS: The lungs are markable for bibasilar air bronchograms with consolidation, possibly related to basilar atelectasis, correlate for pneumonia. Centrilobular paraseptal emphysematous changes are pre sent in the upper lobes. There is no pleural effusion or pneumothorax seen. The tracheobronchial ana e is patent. AORTA: No additional significant abnormality is seen. MEDIASTINUM: There is less than optimal enhancement of the pulmonary artery and its branches, there i s no CT evidence for pulmonary embolism. There are no greater than 1 cm hilar or mediastinal lymph n odes. Multiple pericardial effusion is seen. Coronary artery calcifications are present OTHER: No additional significant abnormality is seen. IMPRESSION: THERE IS SOME LIMITATION TO THE EXAM. NO PULMONARY MASSES EVIDENT. CORONARY ARTERY DISEASE. BASILAR A TELECTASIS AND EMPHYSEMA DESCRIBED.
--- NOTE | 2020-10-24 14:00 | P.PN ---
Subjective Progress Note Date: 10/24/20 HISTORY OF PRESENT ILLNESS This is a 59-year-old female patient of Dr. Cisneros with past medical history significant for hypertension and hypertensive cardiovascular di sease with left ventricular hypertrophy, osteoarthritis, gastroesophageal reflux disease, diverticulosis, rheumatoid arthritis diagnosed in 2005 on Enbrel and followed by Dr. Goldman. Patient was hospitalized July 03 to July 05 for sepsis related to facial cellulitis and an immunocompromised host. Thereafter, she had some abdominal pain, for which CAT scan was concerning for perforated sigmoid diverticula, requiring exploratory appendectomy and sigmoid colectomy and end colostomy, 07/08/2020. She now comes in for colostomy reversal, for which Dr. Lebron has performed these on 10/19/2020. Patient has an epidural pain pump, however she is complaining of significant abdominal pain with abdominal distention, no nausea however she is up scopolamine patch, she has uncontrolled pain, no flatus, patient currently is nothing by mouth except medications. Patient denies any fever or chills or shortness of breath no chest pain, no cough, however patient's fearful of getting any nausea vomiting, acid technically hurts even more. She does have ALLERGIES to hydrocodone, oxycodone, hydromorphone, plan for pain management would be tramadol, and the current epidural pain pump. 10/21: Patient evaluated, laying comfortably in the bed. Patient reports she's had a few bouts of diarrhea, she denies any nausea or vomiting. She is tolerating ice chips and popsicles. Her abdomen is soft, nondistended, dressing is clean dry and intact, she has good bowel sounds. Laboratory values showed WB C 14.6, hemoglobin 14.2, sodium 141, potassium 5.3, BUN 9, creatinine 0.7. Vital signs are stable temperature of 98.3, heart rate 94, respiratory rate of 17, blood pressure 113/71, pulse ox 90% on room air. Incentive spirometer at bedside encouraged its use. 10/22: She states that she has been on long-term Protonix and wishes for this to be resumed and Pepcid discontinued which appears to have been done by general surgery. Patient is anxious to start eating. She states she is burping and pas sing flatulence along with diarrhea. She has tenderness to the bilateral lower quadrants. Blood pressure has been elevated but patient states that all the readings are done after she has an emesis. Epidural has been removed. Anticipate Harris catheter to be removed today. Bicarb added to IV fluids. 10/23: Patient pulse ox continues to run on the low side 88-91% on room air. Patient states she had low pulse ox following her previous surgery. She denies feeling short of breath, no cough, no sputum production. She is only reaching 500 on incentive spirometry but at home prior to surgery, patient was reaching 3000. She has been afebrile, temperature max 99.7, heart rate 119, blood pressu re 129/82. Chest x-ray reveals patchy left greater than right bibasilar atelectasis and/or developing infiltrate. Patient started on ceftriaxone for possible early pneumonia. Repeat blood work reveals WBC 12.7, hemoglobin 12.6, platelet count 258. Patient is currently on clear liquid diet and tolerating. Harris catheter was removed yesterday and patient is voiding on her own. 10/24: Patient pulse ox remains low between 90 and 93% on oxygen. She is on 2-3 L. Nursing to do a home oxygen assessment for her. She does complain of shortness of breath with ambulation. She ambulated in the hallway yesterday and could not go very far past her room. She is reaching 1500 ML's on incentive spirometry. CTA of the chest ordered that found no evidence of pulmonary embolism. She is feeling better today in general. Bicarb drip will be discontinued. She continues to have abdominal bloating. She is on a full liquid diet that was started yesterday. She denies nausea vomiting. Repeat blood work reveals potassium 2.7 which will be replaced. Sodium 133, chloride 95, CO2 31, creatinine 0.61. WBC 12.1, hemoglobin 11.9, platelet count 264. REVIEW OF SYSTEMS Constitutional: No fever, no chills, no night sweats. No weight change. No weakness, fatigue or lethargy. No daytime sleepiness. EENT: No headache. No blurred vision or double vision, no loss of vision. No loss of Hearing, no ringing in the ears, no dizziness. No nasal drainage or congestion. No epistaxis. No sore throat. Lungs: No shortness of breath, cough, no sputum production. No wheezing. Reports shortness of breath with activity. Cardiovascular: No chest pain, no lower extremity edema. No palpitations. No paroxysmal nocturnal dyspnea. No orthopnea. No lightheadedness or dizziness. No syncopal episodes. Abdominal: Reports abdominal pain. Reports abdominal bloating. No nausea, vomiting. No diarrhea. No constipation. No bloody or tarry stools denies loss of appetite. Genitourinary: No dysuria, increased frequency, urgency. No urinary retention. Musculoskeletal: No myalgias. No muscle weakness, no gait dysfunction, no frequent falls. No back pain. No neck pain. Integumentary: No wounds, no lesions. No rash or pruritus. No unusual bruising. Neurologic: No aphasia. No facial droop. No change in mentation. No head injury. No headache. No paralysis. No paresthesia. Psychiatric: No depression. No anxiety. Endocrine: No abnormal blood sugars. PHYSICAL EXAMINATION Gen: This is a 59-year-old female. Patient is resting in bed and appears to be comfortable and in no acute distress. HEENT: Head is atraumatic, normocephalic. Pupils equal, round. Sclerae is anicteric. NECK: Supple. No JVD. No lymphadenopathy. No thyromegaly. LUNGS: Clear to auscultation. No wheezes or rhonchi. No intercostal retractions. Mild tachypnea and accessory muscle usage with talking. HEART: Regular rate and rhythm. No murmur. ABDOMEN: Mild distention, Soft. Bowel sounds are present. No masses. No tenderness. Dressing clean dry and intact. EXTREMITIES: No pedal edema. No calf tenderness. Dorsalis pedis palpable bilaterally. NEUROLOGICAL: Patient is awake, alert and oriented x3. Cranial nerves 2 through 12 are grossly intact. ASSESSMENT AND PLAN 1. Colostomy reversal 10/19/2020, postop day #3 with prior history of pneumoperitoneum on from perforated diverticulitis in July 08, requiring sigmoid colectomy and end colostomy. Continue Cepacol, dextrose normal saline with sodium bicarb at 125 mL per hour, Reglan 10 mg IV push every 6 hours as needed, Zofran as needed for nausea, scopolamine patch as needed, tramadol for pain. Continue clear liquid diet. 2. Hypertension, hypertensive cardiovascular disease. Continue hydralazine 10 mg IV push every 6 hours as needed for systolic blood pressure greater than 160. Patient is been resumed on Norvasc 5 mg daily. 3. Rheumatoid arthritis under the care of Dr. Goldman. Enbrel and prednisone on hold. May use Plaquenil to breech if RA is not controlled 4. Gastroesophageal reflux disease. Continue Pepcid 20 twice a day. 5. Generalized osteoarthritis, stable. 6. 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 Chronic immunosuppressed patient, secondary to Enbrel monitor for wound healing process and nutrition 8. Acute hypoxic respiratory failure requiring oxygen therapy most likely secondary to atelectasis and early chemical pneumonitis. CT negative for pulmonary embolism. Continue incentive spirometry, ceftriaxone 1 g IV piggyback every day, Pulmicort 0.5 mg twice daily and nebulizer treatment as needed. 9. DVT prophylaxis heparin subcu 10. COVID-19 testing negative. Patient has been hospitalized during a pandemic. DISCHARGE PLAN home. Impression and plan of care have been directed as dictated by the signing physician. Renita Ornelas nurse practitioner acting as scribe for signing physician. Objective - Vital Signs Vital signs: Vital Signs Temp 99.4 F 10/24/20 08:00 Pulse 98 10/24/20 08:00 Resp 16 10/24/20 08:00 BP 116/69 10/24/20 08:00 Pulse Ox 90 L 10/24/20 08:00 Intake & Output 10/23/20 10/24/20 10/24/20 18:59 06:59 18:59 Other: Voiding Method Toilet Toilet - Labs CBC & Chem 7: 10/24/20 08:55 10/24/20 08:55 Labs: Abnormal Lab Results - Last 24 Hours (Table) 10/23/20 10/23/20 Range/Units 05:37 05:37 WBC 12.73 H (4.50-10.00) X 10*3/uL Immature Gran # 0.06 H (0.00-0.04) X 10*3/uL Neutrophils # 11.18 H (1.80-7.70) X 10*3/uL Anion Gap 15.90 H (4.00-12.00) mmol/L BUN 7.0 L (9.0-27.0) mg/dL Creatinine 0.5 L (0.6-1.5) mg/dL Glucose 125 H (70-110) mg/dL Calcium 8.3 L (8.7-10.3) mg/dL
[2020-10-24] MEDS: BUDESONIDE 0.5 MG/2 ML NEBU INHALATION SCH ×2 (16:18→20:27)
[2020-10-24] MEDS: ACETAMINOPHEN TAB 500 MG TAB PO PRN (21:54)
[2020-10-25] MEDS: HEPARIN SODIUM,PORCINE/PF 5,000 UNIT/0.5 ML SYRINGE SQ SCH ×4 (00:35→23:21)
[2020-10-25] MEDS: PIPERACILLIN-TAZOBACTAM 3.375 GM in SODIUM CHLORIDE 0.9% 100 ML IVPB SCH ×4 (00:35→23:21)
[2020-10-25] MEDS: ALPRAZolam 0.5 MG TAB PO PRN ×2 (00:35→23:25)
[2020-10-25] MEDS: traMADol 50 MG TAB PO PRN ×3 (00:43→21:08)
[2020-10-25] MEDS: BUDESONIDE 0.5 MG/2 ML NEBU INHALATION SCH ×2 (07:26→20:00)
[2020-10-25] MEDS: ACETAMINOPHEN TAB 500 MG TAB PO PRN ×2 (08:28→19:51)
[2020-10-25] MEDS: PANTOPRAZOLE 40 MG/10 ML VIAL IVP SCH ×2 (08:29→19:51)
[2020-10-25] MEDS: SCOPOLAMINE 1.5MG/72HR PATCH TRANSDERM SCH (08:29)
[2020-10-25] MEDS: amLODIPine 5 MG TAB PO SCH (08:29)
[2020-10-25 09:36] LABS: Basophils # (A) 0.01 X 10*3/uL (0.00-0.10); Basophils % (A) 0.1 %; Eosinophils # (A) 0.31 X 10*3/uL (0.04-0.35); HCT 34.7 % (37.2-46.3); HGB 11.1 g/dL (12.0-15.0); Lymphocytes # (A) 1.36 X 10*3/uL (0.90-5.00); Lymphocytes % (A) 13.3 %; MCH 28.5 pg (27.0-32.0); MCV 89.2 fL (80.0-97.0); Mean Platelet Volume 10.2 fL (9.5-12.2); Monocytes # (A) 0.72 X 10*3/uL (0.20-1.00); Neutrophils # (A) 7.71 X 10*3/uL (1.80-7.70); Neutrophils % (A) 75.5 %; Platelet Count 242 X 10*3/uL (140-440); RBC 3.89 X 10*6/uL (4.10-5.20); RDW 13.1 % (11.5-14.5); WBC 10.22 X 10*3/uL (4.50-10.00)
[2020-10-25 10:31] LABS: Albumin 2.7 g/dL (3.5-5.0); Bilirubin,Unconjugated 0.6 mg/dL (0.0-1.1); Globulin 2.8 g/dL; Total Bilirubin 0.9 mg/dL (0.2-1.3); Total Protein 5.5 g/dL (6.3-8.2)
--- NOTE | 2020-10-25 12:10 | P.PN ---
Subjective Progress Note Date: 10/25/20 HISTORY OF PRESENT ILLNESS This is a 59-year-old female patient of Dr. Cisneros with past medical history significant for hypertension and hypertensive cardiovascular di sease with left ventricular hypertrophy, osteoarthritis, gastroesophageal reflux disease, diverticulosis, rheumatoid arthritis diagnosed in 2005 on Enbrel and followed by Dr. Goldman. Patient was hospitalized July 03 to July 05 for sepsis related to facial cellulitis and an immunocompromised host. Thereafter, she had some abdominal pain, for which CAT scan was concerning for perforated sigmoid diverticula, requiring exploratory appendectomy and sigmoid colectomy and end colostomy, 07/08/2020. She now comes in for colostomy reversal, for which Dr. Lebron has performed these on 10/19/2020. Patient has an epidural pain pump, however she is complaining of significant abdominal pain with abdominal distention, no nausea however she is up scopolamine patch, she has uncontrolled pain, no flatus, patient currently is nothing by mouth except medications. Patient denies any fever or chills or shortness of breath no chest pain, no cough, however patient's fearful of getting any nausea vomiting, acid technically hurts even more. She does have ALLERGIES to hydrocodone, oxycodone, hydromorphone, plan for pain management would be tramadol, and the current epidural pain pump. 10/21: Patient evaluated, laying comfortably in the bed. Patient reports she's had a few bouts of diarrhea, she denies any nausea or vomiting. She is tolerating ice chips and popsicles. Her abdomen is soft, nondistended, dressing is clean dry and intact, she has good bowel sounds. Laboratory values showed WB C 14.6, hemoglobin 14.2, sodium 141, potassium 5.3, BUN 9, creatinine 0.7. Vital signs are stable temperature of 98.3, heart rate 94, respiratory rate of 17, blood pressure 113/71, pulse ox 90% on room air. Incentive spirometer at bedside encouraged its use. 10/22: She states that she has been on long-term Protonix and wishes for this to be resumed and Pepcid discontinued which appears to have been done by general surgery. Patient is anxious to start eating. She states she is burping and pas sing flatulence along with diarrhea. She has tenderness to the bilateral lower quadrants. Blood pressure has been elevated but patient states that all the readings are done after she has an emesis. Epidural has been removed. Anticipate Harris catheter to be removed today. Bicarb added to IV fluids. 10/23: Patient pulse ox continues to run on the low side 88-91% on room air. Patient states she had low pulse ox following her previous surgery. She denies feeling short of breath, no cough, no sputum production. She is only reaching 500 on incentive spirometry but at home prior to surgery, patient was reaching 3000. She has been afebrile, temperature max 99.7, heart rate 119, blood pressu re 129/82. Chest x-ray reveals patchy left greater than right bibasilar atelectasis and/or developing infiltrate. Patient started on ceftriaxone for possible early pneumonia. Repeat blood work reveals WBC 12.7, hemoglobin 12.6, platelet count 258. Patient is currently on clear liquid diet and tolerating. Harris catheter was removed yesterday and patient is voiding on her own. 10/24: Patient pulse ox remains low between 90 and 93% on oxygen. She is on 2-3 L. Nursing to do a home oxygen assessment for her. She does complain of shortness of breath with ambulation. She ambulated in the hallway yesterday and could not go very far past her room. She is reaching 1500 ML's on incentive spirometry. CTA of the chest ordered that found no evidence of pulmonary embolism. She is feeling better today in general. Bicarb drip will be discontinued. She continues to have abdominal bloating. She is on a full liquid diet that was started yesterday. She denies nausea vomiting. Repeat blood work reveals potassium 2.7 which will be replaced. Sodium 133, chloride 95, CO2 31, creatinine 0.61. WBC 12.1, hemoglobin 11.9, platelet count 264. 10/25: Patient had temperature of 100.7 yesterday afternoon, antibiotics changed to Zosyn. Urinalysis and blood cultures ordered. Yesterday, patient underwent CTA of the chest which revealed no pulmonary embolism. Coronary artery disease. Basilar atelectasis and emphysema. Patient encouraged to continue incentive spirometry and increase activity. She does complain of continued bloating and has not passed gas today. Heart rate 101, respiratory rate 18, blood pressure 123/73, pulse ox 88% on 3 L nasal cannula. Repeat blood work reveals WBC 10.2, hemoglobin 11.1, platelet count 242. Chemistry is pending. Repeat blood work ordered for tomorrow. REVIEW OF SYSTEMS Constitutional: No fever, no chills, no night sweats. No weight change. No weakness, fatigue or lethargy. No daytime sleepiness. EENT: No headache. No blurred vision or double vision, no loss of vision. No loss of Hearing, no ringing in the ears, no dizziness. No nasal drainage or congestion. No epistaxis. No sore throat. Lungs: Reports shortness of breath, cough, no sputum production. No wheezing. Reports shortness of breath with activity. Cardiovascular: No chest pain, no lower extremity edema. No palpitations. No paroxysmal nocturnal dyspnea. No orthopnea. No lightheadedness or dizziness. No syncopal episodes. Abdominal: Reports abdominal pain. Reports abdominal bloating. No nausea, vomiting. No diarrhea. Reports constipation. No bloody or tarry stools denies loss of appetite. Genitourinary: No dysuria, increased frequency, urgency. No urinary retention. Musculoskeletal: No myalgias. No muscle weakness, no gait dysfunction, no frequent falls. No back pain. No neck pain. Integumentary: No wounds, no lesions. No rash or pruritus. No unusual bruising. Neurologic: No aphasia. No facial droop. No change in mentation. No head injury. No headache. No paralysis. No paresthesia. Psychiatric: No depression. No anxiety. Endocrine: No abnormal blood sugars. PHYSICAL EXAMINATION Gen: This is a 59-year-old female. Patient is resting in bed and appears to be comfortable and in no acute distress. HEENT: Head is atraumatic, normocephalic. Pupils equal, round. Sclerae is anicteric. NECK: Supple. No JVD. No lymphadenopathy. No thyromegaly. LUNGS: Clear to auscultation. No wheezes or rhonchi. No intercostal retractions. Patient appears to be comfortable at rest. No accessory muscle usage. HEART: Regular rate and rhythm. No murmur. ABDOMEN: Mild distention, Soft. Bowel sounds are present. No masses. No tenderness. Dressing clean dry and intact. EXTREMITIES: No pedal edema. No calf tenderness. Dorsalis pedis palpable bilaterally. NEUROLOGICAL: Patient is awake, alert and oriented x3. Cranial nerves 2 through 12 are grossly intact. ASSESSMENT AND PLAN 1. Colostomy reversal 10/19/2020 with prior history of pneumoperitoneum on from perforated diverticulitis in July 08, requiring sigmoid colectomy and end colostomy. Continue Cepacol, dextrose normal saline with sodium bicarb at 125 mL per hour, Reglan 10 mg IV push every 6 hours as needed, Zofran as needed for nausea, scopolamine patch as needed, tramadol for pain. Continue clear liquid diet. 2. Hypertension, hypertensive cardiovascular disease. Continue hydralazine 10 mg IV push every 6 hours as needed for systolic blood pressure greater than 160. Continue Norvasc 5 mg daily. 3. Rheumatoid arthritis under the care of Dr. Goldman. Enbrel and prednisone on hold. May use Plaquenil to breech if RA is not controlled 4. Gastroesophageal reflux disease. Continue Pepcid 20 twice a day. 5. Generalized osteoarthritis, stable. 6. 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 Chronic immunosuppressed patient, secondary to Enbrel monitor for wound healing process and nutrition 8. Acute hypoxic respiratory failure requiring oxygen therapy most likely secondary to atelectasis and pneumonia ruled out by CAT scan. Continue Zosyn for prophylaxis, continue Pulmicort 0.5 mg twice daily and nebulizer treatment as needed. 9. DVT prophylaxis heparin subcu 10. COVID-19 testing negative. Patient has been hospitalized during a pandemic. DISCHARGE PLAN home. Impression and plan of care have been directed as dictated by the signing physician. Renita Ornelas nurse practitioner acting as scribe for signing physician. Objective - Vital Signs Vital signs: Vital Signs Temp 100.3 F H 10/25/20 07:54 Pulse 101 H 10/25/20 07:54 Resp 18 10/25/20 07:54 BP 123/73 10/25/20 07:54 Pulse Ox 88 L 10/25/20 07:54 Intake & Output 10/24/20 10/25/20 10/25/20 18:59 06:59 18:59 Intake Total 472 Balance 472 Intake: Oral 472 Other: Voiding Method Toilet # Voids 2 # Bowel Movements 2 - Labs CBC & Chem 7: 10/25/20 05:53 10/24/20 08:55 Labs: Abnormal Lab Results - Last 24 Hours (Table) 10/24/20 10/24/20 Range/Units 08:55 08:55 WBC 12.1 H (3.8-10.6) k/uL Neutrophils # 10.1 H (1.3-7.7) k/uL Sodium 133 L (137-145) mmol/L Potassium 2.7 L* (3.5-5.1) mmol/L Chloride 95 L (98-107) mmol/L Carbon Dioxide 31 H (22-30) mmol/L Glucose 113 H (74-99) mg/dL Calcium 8.0 L (8.4-10.2) mg/dL
[2020-10-25 12:11] LABS: African American GFR (CKD) 123.6 (60.0-200.0); Anion Gap 10.8 mmol/L (4.00-12.00); Calcium 8.1 mg/dL (8.7-10.3); Carbon Dioxide 27.2 mmol/L (21.6-31.8); Non-African American GFR(CKD) 106.7 (60.0-200.0); Potassium 4.2 mmol/L (3.5-5.5)
--- NOTE | 2020-10-25 12:20 | P.PN ---
<Alexandria Harley - Last Filed: 10/25/20 12:13> Subjective Progress Note Date: 10/25/20 CHIEF COMPLAINT: Perforated diverticulitis Diverticulitis HISTORY OF PRESENT ILLNESS: Status post colostomy reversal, mobilization of splenic flexure. Postop day #6. Patient has been complaining of productive cough and some shortness of breath. She is requiring oxygen on 3 L. Heart rate 101. She did have low-grade temps with a T-max of 100.7. She did have a temp this morning of 100.3. Medicine service has switched antibiotics to IV Zosyn. White count is down from 12.1-10.22 hemoglobin 11.1 potassium has improved from 2.7-4.2. Patient is having bowel movements. She denies any nausea or vomiting. She denies any abdominal pain except with coughing or with movement. PHYSICAL EXAM: VITAL SIGNS: Reviewed. GENERAL: Well-developed in no acute distress. HEENT: No sclera icterus. Extraocular movements grossly intact. Moist buccal mucosa. Head is atraumatic, normocephalic. ABDOMEN: Soft. Mildly distended. Incision clean dry and intact NEUROLOGIC: Alert and oriented. Cranial nerves II through XII grossly intact. ASSESSMENT: 1. Perforated diverticulitis status post colostomy reversal, mobilization of splenic flexure 2. Hypokalemia improved 3. Anxiety continue Xanax as needed 4. Atelectasis PLAN: -Agree with rechecking for COVID-19 continue nebulizer treatments -Change nebulizer treatments to scheduled -Continue pain medication as needed -Encourage patient to use incentive spirometer -Encourage patient to increase activity -GI prophylaxis Protonix and DVT prophylaxis subcu heparin Physician [employer] Account Manager note has been reviewed by physician. Signing provider agrees with the documented findings, assessment, and plan of care. Objective - Vital Signs Vital signs: Vital Signs Temp 100.3 F H 10/25/20 07:54 Pulse 101 H 10/25/20 07:54 Resp 18 10/25/20 07:54 BP 123/73 10/25/20 07:54 Pulse Ox 88 L 10/25/20 07:54 Intake & Output 10/24/20 10/25/20 10/25/20 18:59 06:59 18:59 Intake Total 472 Balance 472 Intake: Oral 472 Other: Voiding Method Toilet # Voids 2 # Bowel Movements 2 - Labs CBC & Chem 7: 10/25/20 05:53 10/25/20 05:53 Labs: Abnormal Lab Results - Last 24 Hours (Table) 10/25/20 10/25/20 10/25/20 Range/Units 05:53 05:53 09:44 WBC 10.22 H (4.50-10.00) X 10*3/uL RBC 3.89 L (4.10-5.20) X 10*6/uL Hgb 11.1 L (12.0-15.0) g/dL Hct 34.7 L (37.2-46.3) % Immature Gran # 0.11 H (0.00-0.04) X 10*3/uL Neutrophils # 7.71 H (1.80-7.70) X 10*3/uL BUN 6.0 L (9.0-27.0) mg/dL Creatinine 0.5 L (0.6-1.5) mg/dL Calcium 8.1 L (8.7-10.3) mg/dL AST 40 H (14-36) U/L Alkaline Phosphatase 180 H (38-126) U/L Total Protein 5.5 L (6.3-8.2) g/dL Albumin 2.7 L (3.5-5.0) g/dL <Milind Lebron - Last Filed: 10/25/20 15:53> Subjective As above. Patient had low-grade fevers last night. Remains intermittently tachycardic. Patient says when she is ambulating she is having discomfort at her previous ostomy incision site. Says this is increased from yesterday where she had very little abdominal discomfort. White blood cell count slightly improved. On exam patient has mild tenderness at the ostomy incision site. There is no erythema or significant drainage noted. Options reviewed. Given the patient's increased pain today along with her low-grade fevers Will order CT with rectal contrast only. Continue pulmonary toilet. Objective - Vital Signs Vital signs: Vital Signs Temp 99.3 F 10/25/20 15:41 Pulse 100 10/25/20 15:43 Resp 18 10/25/20 15:41 BP 147/81 10/25/20 15:41 Pulse Ox 86 L 10/25/20 15:41 Intake & Output 10/24/20 10/25/20 10/25/20 18:59 06:59 18:59 Intake Total 472 Balance 472 Intake: Oral 472 Other: Voiding Method Toilet # Voids 2 # Bowel Movements 2 - Labs CBC & Chem 7: 10/25/20 05:53 10/25/20 05:53 Labs: Abnormal Lab Results - Last 24 Hours (Table) 10/25/20 10/25/20 10/25/20 Range/Units 05:53 05:53 09:44 WBC 10.22 H (4.50-10.00) X 10*3/uL RBC 3.89 L (4.10-5.20) X 10*6/uL Hgb 11.1 L (12.0-15.0) g/dL Hct 34.7 L (37.2-46.3) % Immature Gran # 0.11 H (0.00-0.04) X 10*3/uL Neutrophils # 7.71 H (1.80-7.70) X 10*3/uL BUN 6.0 L (9.0-27.0) mg/dL Creatinine 0.5 L (0.6-1.5) mg/dL Calcium 8.1 L (8.7-10.3) mg/dL AST 40 H (14-36) U/L Alkaline Phosphatase 180 H (38-126) U/L Total Protein 5.5 L (6.3-8.2) g/dL Albumin 2.7 L (3.5-5.0) g/dL Microbiology - Last 24 Hours (Table) 10/25/20 08:30 Urine Culture - Preliminary Urine,Clean Catch Assessment and Plan (1) Perforated diverticulum of large intestine Current Visit: No Status: Acute Code(s): K57.20 - DVTRCLI OF LG INT W PERFORATION AND ABSCESS W/O BLEEDING SNOMED Code(s): 505201749
[2020-10-25] MEDS: SODIUM CHLORIDE 0.9% 1,000 ML IV SCH ×2 (12:51→19:53)
[2020-10-25] MEDS: IPRATROPIUM-ALBUTEROL 3 ML NEB INHALATION SCH ×2 (15:43→20:00)
--- NOTE | 2020-10-25 17:01 | CT ---
EXAMINATION TYPE: CT abdomen pelvis wo con DATE OF EXAM: 10/25/2020 COMPARISON: 07/12/2020 HISTORY: Post colostomy reversal. CT DLP: 664.5 mGycm 250ml rectal contrast administered. Unenhanced CT of the abdomen and pelvis was performed. Lack of co ntrast limits evaluation of the solid viscera. FINDINGS: LUNG BASES: There is basilar compressive atelectasis and small effusions. Underlying infiltrates are difficult to exclude. LIVER/GB: The gallbladder is unremarkable. No space-occupying hepatic lesion. PANCREAS: No pancreatic mass identified. No inflammatory process seen. SPLEEN: No evidence for splenomegaly. No intrasplenic lesions seen. ADRENALS: No adrenal nodules identified. No evidence for thickening. KIDNEYS: No evidence for renal mass. No nephrolithiasis. No hydronephrosis. BOWEL: Midline skin pj. Colostomy reversal noted left lower quadrant. Contrast is seen throughou t the colon without evidence for leak. Small foci of air within the subcutaneous fat. No unusual kyler ections seen. Distention of the small bowel ends in the stomach compatible with ileus. No evidence of free air or abscess. Small amount of free fluid noted within the pelvis. Lymph nodes: No evidence for adenopathy greater than 1 cm. Abdominal aorta: Atheromatous changes seen. No evidence for aneurysm. Genital organs: Hysterectomy changes noted. Other: No significant abnormality. IMPRESSION: 1. Changes of colostomy reversal. There is appropriate filling of the colon without evidence for leak or obstruction. No evidence for abscess or free air. 2. Findings suggest postoperative ileus.
--- NOTE | 2020-10-25 17:11 | P.PN ---
Progress Note - Text Progress Note Date: 10/25/20 Patient just went for her CT abdomen pelvis with rectal contrast. There is excellent opacification of the entire colon without evidence of leak or significant pneumoperitoneum. The patient does have a distended stomach and mild small bowel loop dilatation consistent with ileus. Findings discussed in detail with the patient and also with her daughter by phone. Will make nothing by mouth except for sips of liquids and medications. We will add IV Reglan. Continue pulmonary toilet for suspected atelectasis and possible pneumonia. We did discuss that if the patient has any further bloating, nausea, or vomiting that nasogastric tube should be strongly considered. She is not interested in nasogastric tube placement at this time.
[2020-10-25] MEDS: METOCLOPRAMIDE 5 MG/ML 2 ML VIAL IVP SCH ×2 (17:52→23:21)
[2020-10-26] MEDS: ACETAMINOPHEN TAB 500 MG TAB PO PRN (02:53)
[2020-10-26] MEDS: METOCLOPRAMIDE 5 MG/ML 2 ML VIAL IVP SCH ×3 (05:31→17:08)
[2020-10-26] MEDS: traMADol 50 MG TAB PO PRN ×2 (08:29→15:51)
[2020-10-26] MEDS: HEPARIN SODIUM,PORCINE/PF 5,000 UNIT/0.5 ML SYRINGE SQ SCH ×2 (08:30→15:45)
[2020-10-26] MEDS: amLODIPine 5 MG TAB PO SCH (08:30)
[2020-10-26] MEDS: PANTOPRAZOLE 40 MG/10 ML VIAL IVP SCH ×2 (08:30→20:35)
[2020-10-26] MEDS: IPRATROPIUM-ALBUTEROL 3 ML NEB INHALATION SCH ×4 (08:43→20:54)
[2020-10-26] MEDS: BUDESONIDE 0.5 MG/2 ML NEBU INHALATION SCH ×2 (08:48→20:54)
[2020-10-26] MEDS: ALPRAZolam 0.5 MG TAB PO PRN (09:45)
[2020-10-26] MEDS: PIPERACILLIN-TAZOBACTAM 3.375 GM in SODIUM CHLORIDE 0.9% 100 ML IVPB SCH ×2 (09:45→15:45)
[2020-10-26] MEDS ORDERED: FUROSEMIDE 10 MG/ML 4 ML VIAL IV STA (09:55)
[2020-10-26 11:02] LABS: HCT 35.2 % (37.2-46.3); HGB 11.5 g/dL (12.0-15.0); MCH 28.8 pg (27.0-32.0); MCHC 32.7 g/dL (32.0-37.0); MCV 88.2 fL (80.0-97.0); Mean Platelet Volume 9.7 fL (9.5-12.2); Platelet Count 313 X 10*3/uL (140-440); RBC 3.99 X 10*6/uL (4.10-5.20); RDW 13.2 % (11.5-14.5); WBC 13.53 X 10*3/uL (4.50-10.00)
--- NOTE | 2020-10-26 11:16 | P.PN ---
<CherriAlexandria - Last Filed: 10/26/20 11:02> Subjective Progress Note Date: 10/26/20 CHIEF COMPLAINT: Perforated diverticulitis Diverticulitis HISTORY OF PRESENT ILLNESS: Status post colostomy reversal, mobilization of splenic flexure. Postop day #7. Patient had increase in abdominal pain yesterday evening. She also reported that she had not had any stool or gas since earlier that morning. She had computed tomography scan of abdomen and pelvis there is no evidence of leak, obstruction or free air. Findings suggest postoperative ileus. Dr. Lebron added Reglan for the ileus and made her nothing by mouth. Patient did have a low grade fever at 2 AM of 100.5 and no temperature is 98.5. She was also on 5 L of oxygen satting at 91% on she is now down to 3 L. Her repeat Covid screening was negative. Today she is complaining of left-sided abdominal pain around her incision. Incision site is clean dry and intact. She was able to have a liquidy stool this morning. But no flatus. She denies any nausea or vomiting. She is still denying with cough and shortness of breath. Medicine service has added Pulmicort nebulizer treatments as well as IV steroids and gave her a dose of IV Lasix. WBC is up at 13.53 hemoglobin 11.5 PHYSICAL EXAM: VITAL SIGNS: Reviewed. GENERAL: Well-developed in no acute distress. HEENT: No sclera icterus. Extraocular movements grossly intact. Moist buccal mucosa. Head is atraumatic, normocephalic. ABDOMEN: Soft. distended. Incision clean dry and intact. Tenderness to palpation of the left lower abdomen just below her incision site NEUROLOGIC: Alert and oriented. Cranial nerves II through XII grossly intact. ASSESSMENT: 1. Perforated diverticulitis status post colostomy reversal, mobilization of splenic flexure 2. Expected postoperative ileus 3. Hypokalemia improved 4. Anxiety continue Xanax as needed 5. Atelectasis 6. Possible pneumonia PLAN: -Keep patient nothing by mouth except for ice chips, popsicles, medications and gum -Continue pain medication as needed -Encourage patient to use incentive spirometer -Encourage patient to increase activity -GI prophylaxis Protonix and DVT prophylaxis subcu heparin Physician Seed Sales Manager note has been reviewed by physician. Signing provider agrees with the documented findings, assessment, and plan of care. Objective - Vital Signs Vital signs: Vital Signs Temp 98.5 F 10/26/20 07:56 Pulse 90 10/26/20 08:57 Resp 16 10/26/20 07:56 BP 139/82 10/26/20 07:56 Pulse Ox 91 L 10/26/20 07:56 Intake & Output 10/25/20 10/26/20 10/26/20 18:59 06:59 18:59 Other: Voiding Method Toilet Toilet # Voids 1 # Bowel Movements 1 - Labs CBC & Chem 7: 10/25/20 05:53 10/25/20 05:53 Labs: Abnormal Lab Results - Last 24 Hours (Table) 10/25/20 Range/Units 05:53 BUN 6.0 L (9.0-27.0) mg/dL Creatinine 0.5 L (0.6-1.5) mg/dL Calcium 8.1 L (8.7-10.3) mg/dL Microbiology - Last 24 Hours (Table) 10/25/20 08:30 Urine Culture - Preliminary Urine,Clean Catch <Milind Lebron - Last Filed: 10/26/20 12:41> Subjective As above. Patient still with shortness of breath. Being seen by pulmonary this morning. She did have another bowel movement. No nausea or vomiting. We'll resume clear liquids. White blood cell count increased slightly. We'll repeat tomorrow. Objective - Vital Signs Vital signs: Vital Signs Temp 98.5 F 10/26/20 07:56 Pulse 90 10/26/20 11:57 Resp 16 10/26/20 07:56 BP 139/82 10/26/20 07:56 Pulse Ox 91 L 10/26/20 07:56 Intake & Output 10/25/20 10/26/20 10/26/20 18:59 06:59 18:59 Other: Voiding Method Toilet Toilet # Voids 1 # Bowel Movements 1 - Labs CBC & Chem 7: 10/26/20 07:28 10/26/20 07:28 Labs: Abnormal Lab Results - Last 24 Hours (Table) 10/26/20 10/26/20 Range/Units 07:28 07:28 WBC 13.53 H (4.50-10.00) X 10*3/uL RBC 3.99 L (4.10-5.20) X 10*6/uL Hgb 11.5 L (12.0-15.0) g/dL Hct 35.2 L (37.2-46.3) % Sodium 134 L (135-145) mmol/L Potassium 3.4 L (3.5-5.5) mmol/L Anion Gap 15.40 H (4.00-12.00) mmol/L BUN 8.0 L (9.0-27.0) mg/dL Creatinine 0.5 L (0.6-1.5) mg/dL Glucose 66 L (70-110) mg/dL Calcium 8.0 L (8.7-10.3) mg/dL AST 39 H (13-35) U/L Alkaline Phosphatase 178 H (41-126) U/L Total Protein 5.6 L (6.2-8.2) g/dL Albumin 3.10 L (3.80-4.90) g/dL Albumin/Globulin Ratio 1.24 L (1.60-3.17) g/dL Microbiology - Last 24 Hours (Table) 10/25/20 09:44 Blood Culture - Preliminary Blood No Growth after 24 hours 10/25/20 08:30 Urine Culture - Preliminary Urine,Clean Catch Assessment and Plan (1) Perforated diverticulum of large intestine Current Visit: No Status: Acute Code(s): K57.20 - DVTRCLI OF LG INT W PERFORATION AND ABSCESS W/O BLEEDING SNOMED Code(s): 723164948
[2020-10-26 11:59] LABS: African American GFR (CKD) 123.6 (60.0-200.0); Albumin 3.1 g/dL (3.80-4.90); Albumin/Globulin Ratio 1.24 (1.60-3.17); Anion Gap 15.4 mmol/L (4.00-12.00); Carbon Dioxide 22.6 mmol/L (21.6-31.8); Globulin 2.5 g/dL (1.6-3.3); Non-African American GFR(CKD) 106.7 (60.0-200.0); Potassium 3.4 mmol/L (3.5-5.5); Total Protein 5.6 g/dL (6.2-8.2)
--- NOTE | 2020-10-26 12:13 | P.PN ---
Subjective Progress Note Date: 10/26/20 HISTORY OF PRESENT ILLNESS This is a 59-year-old female patient of Dr. Cisneros with past medical history significant for hypertension and hypertensive cardiovascular di sease with left ventricular hypertrophy, osteoarthritis, gastroesophageal reflux disease, diverticulosis, rheumatoid arthritis diagnosed in 2005 on Enbrel and followed by Dr. Goldman. Patient was hospitalized July 03 to July 05 for sepsis related to facial cellulitis and an immunocompromised host. Thereafter, she had some abdominal pain, for which CAT scan was concerning for perforated sigmoid diverticula, requiring exploratory appendectomy and sigmoid colectomy and end colostomy, 07/08/2020. She now comes in for colostomy reversal, for which Dr. Lebron has performed these on 10/19/2020. Patient has an epidural pain pump, however she is complaining of significant abdominal pain with abdominal distention, no nausea however she is up scopolamine patch, she has uncontrolled pain, no flatus, patient currently is nothing by mouth except medications. Patient denies any fever or chills or shortness of breath no chest pain, no cough, however patient's fearful of getting any nausea vomiting, acid technically hurts even more. She does have ALLERGIES to hydrocodone, oxycodone, hydromorphone, plan for pain management would be tramadol, and the current epidural pain pump. 10/21: Patient evaluated, laying comfortably in the bed. Patient reports she's had a few bouts of diarrhea, she denies any nausea or vomiting. She is tolerating ice chips and popsicles. Her abdomen is soft, nondistended, dressing is clean dry and intact, she has good bowel sounds. Laboratory values showed WB C 14.6, hemoglobin 14.2, sodium 141, potassium 5.3, BUN 9, creatinine 0.7. Vital signs are stable temperature of 98.3, heart rate 94, respiratory rate of 17, blood pressure 113/71, pulse ox 90% on room air. Incentive spirometer at bedside encouraged its use. 10/22: She states that she has been on long-term Protonix and wishes for this to be resumed and Pepcid discontinued which appears to have been done by general surgery. Patient is anxious to start eating. She states she is burping and pas sing flatulence along with diarrhea. She has tenderness to the bilateral lower quadrants. Blood pressure has been elevated but patient states that all the readings are done after she has an emesis. Epidural has been removed. Anticipate Harris catheter to be removed today. Bicarb added to IV fluids. 10/23: Patient pulse ox continues to run on the low side 88-91% on room air. Patient states she had low pulse ox following her previous surgery. She denies feeling short of breath, no cough, no sputum production. She is only reaching 500 on incentive spirometry but at home prior to surgery, patient was reaching 3000. She has been afebrile, temperature max 99.7, heart rate 119, blood pressu re 129/82. Chest x-ray reveals patchy left greater than right bibasilar atelectasis and/or developing infiltrate. Patient started on ceftriaxone for possible early pneumonia. Repeat blood work reveals WBC 12.7, hemoglobin 12.6, platelet count 258. Patient is currently on clear liquid diet and tolerating. Harris catheter was removed yesterday and patient is voiding on her own. 10/24: Patient pulse ox remains low between 90 and 93% on oxygen. She is on 2-3 L. Nursing to do a home oxygen assessment for her. She does complain of shortness of breath with ambulation. She ambulated in the hallway yesterday and could not go very far past her room. She is reaching 1500 ML's on incentive spirometry. CTA of the chest ordered that found no evidence of pulmonary embolism. She is feeling better today in general. Bicarb drip will be discontinued. She continues to have abdominal bloating. She is on a full liquid diet that was started yesterday. She denies nausea vomiting. Repeat blood work reveals potassium 2.7 which will be replaced. Sodium 133, chloride 95, CO2 31, creatinine 0.61. WBC 12.1, hemoglobin 11.9, platelet count 264. 10/25: Patient had temperature of 100.7 yesterday afternoon, antibiotics changed to Zosyn. Urinalysis and blood cultures ordered. Yesterday, patient underwent CTA of the chest which revealed no pulmonary embolism. Coronary artery disease. Basilar atelectasis and emphysema. Patient encouraged to continue incentive spirometry and increase activity. She does complain of continued bloating and has not passed gas today. Heart rate 101, respiratory rate 18, blood pressure 123/73, pulse ox 88% on 3 L nasal cannula. Repeat blood work reveals WBC 10.2, hemoglobin 11.1, platelet count 242. Chemistry is pending. Repeat blood work ordered for tomorrow. 10/26: Pulse ox is morning is 91% on 5 L. She's been afebrile, heart rate 96, blood pressure 139/82. Temperature max was 100.5 at 2 AM. Coronavirus PCR was repeated yesterday which came back not detected. Urine culture from October 25 in process. Patient underwent CAT scan of the abdomen and pelvis revealed changes of colostomy reversal. Appropriate filling of colon without evidence of leak or obstruction. No evidence of abscess or free air. Findings suggest postoperative ileus. Surgery has changed diet to nothing by mouth except for ice chips medications popsicles and gum and added Reglan. Option of NG tube was offered to the patient but she declined at this time. Patient does complain of cough. We'll plan to add in consult with Dr. Kelly. REVIEW OF SYSTEMS Constitutional: No fever, no chills, no night sweats. No weight change. No weakness, fatigue or lethargy. No daytime sleepiness. EENT: No headache. No blurred vision or double vision, no loss of vision. No loss of Hearing, no ringing in the ears, no dizziness. No nasal drainage or congestion. No epistaxis. No sore throat. Lungs: Reports shortness of breath, reports cough, no sputum production. No wheezing. Reports shortness of breath with activity. Cardiovascular: No chest pain, no lower extremity edema. No palpitations. No paroxysmal nocturnal dyspnea. No orthopnea. No lightheadedness or dizziness. No syncopal episodes. Abdominal: Reports abdominal pain. Reports abdominal bloating. No nausea, vomiting. No diarrhea. Reports constipation. No bloody or tarry stools denies loss of appetite. Genitourinary: No dysuria, increased frequency, urgency. No urinary retention. Musculoskeletal: No myalgias. No muscle weakness, no gait dysfunction, no frequent falls. No back pain. No neck pain. Integumentary: No wounds, no lesions. No rash or pruritus. No unusual bruising. Neurologic: No aphasia. No facial droop. No change in mentation. No head injury. No headache. No paralysis. No paresthesia. Psychiatric: No depression. No anxiety. Endocrine: No abnormal blood sugars. PHYSICAL EXAMINATION Gen: This is a 59-year-old female. Patient is resting in bed and appears to be comfortable and in no acute distress. HEENT: Head is atraumatic, normocephalic. Pupils equal, round. Sclerae is anicteric. NECK: Supple. No JVD. No lymphadenopathy. No thyromegaly. LUNGS: Clear to auscultation. No wheezes or rhonchi. No intercostal retractions. Patient appears to be comfortable at rest. No accessory muscle usage. HEART: Regular rate and rhythm. No murmur. ABDOMEN: Mild distention, Soft. Bowel sounds are present. No masses. No tenderness. Dressing clean dry and intact. EXTREMITIES: No pedal edema. No calf tenderness. Dorsalis pedis palpable bilaterally. NEUROLOGICAL: Patient is awake, alert and oriented x3. Cranial nerves 2 through 12 are grossly intact. ASSESSMENT AND PLAN 1. Colostomy reversal 10/19/2020 with prior history of pneumoperitoneum on from perforated diverticulitis in July 08, requiring sigmoid colectomy and end colostomy. Continue Cepacol, dextrose normal saline with sodium bicarb at 125 mL per hour, Reglan 10 mg IV push every 6 hours as needed, Zofran as needed for nausea, scopolamine patch as needed, tramadol for pain. Continue clear liquid diet. 2. Postop ileus. Patient is nothing by mouth, Reglan was added. 3. Hypertension, hypertensive cardiovascular disease. Continue hydralazine 10 mg IV push every 6 hours as needed for systolic blood pressure greater than 160. Continue Norvasc 5 mg daily. 4. Rheumatoid arthritis under the care of Dr. Goldman. Enbrel and prednisone on hold. May use Plaquenil to breech if RA is not controlled 5. Gastroesophageal reflux disease. Continue Pepcid 20 twice a day. 6. Generalized osteoarthritis, stable. 7. 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 Chronic immunosuppressed patient, secondary to Enbrel monitor for wound healing process and nutrition 9. Acute hypoxic respiratory failure requiring oxygen therapy most likely secondary to atelectasis and pneumonia ruled out by CAT scan. Continue Zosyn, continue Pulmicort 0.5 mg twice daily and nebulizer treatment as needed. Consult added for Dr. Kelly from pulmonary medicine. 10. DVT prophylaxis heparin subcu 11. COVID-19 testing negative. Patient has been hospitalized during a pandemic. DISCHARGE PLAN home. Impression and plan of care have been directed as dictated by the signing physician. Renita Ornelas nurse practitioner acting as scribe for signing physician. Objective - Vital Signs Vital signs: Vital Signs Temp 98.5 F 10/26/20 07:56 Pulse 90 10/26/20 08:57 Resp 16 10/26/20 07:56 BP 139/82 10/26/20 07:56 Pulse Ox 91 L 10/26/20 07:56 Intake & Output 10/25/20 10/26/20 10/26/20 18:59 06:59 18:59 Other: Voiding Method Toilet Toilet # Voids 1 # Bowel Movements 1 - Labs CBC & Chem 7: 10/26/20 07:28 10/26/20 07:28 Labs: Abnormal Lab Results - Last 24 Hours (Table) 10/25/20 10/25/20 10/25/20 Range/Units 05:53 05:53 09:44 WBC 10.22 H (4.50-10.00) X 10*3/uL RBC 3.89 L (4.10-5.20) X 10*6/uL Hgb 11.1 L (12.0-15.0) g/dL Hct 34.7 L (37.2-46.3) % Immature Gran # 0.11 H (0.00-0.04) X 10*3/uL Neutrophils # 7.71 H (1.80-7.70) X 10*3/uL BUN 6.0 L (9.0-27.0) mg/dL Creatinine 0.5 L (0.6-1.5) mg/dL Calcium 8.1 L (8.7-10.3) mg/dL AST 40 H (14-36) U/L Alkaline Phosphatase 180 H (38-126) U/L Total Protein 5.5 L (6.3-8.2) g/dL Albumin 2.7 L (3.5-5.0) g/dL Microbiology - Last 24 Hours (Table) 10/25/20 08:30 Urine Culture - Preliminary Urine,Clean Catch
[2020-10-26] MEDS: methylPREDNISolone SOD SUCCI 125 MG/2 ML VIAL IV SCH ×2 (12:27→17:13)
[2020-10-26 14:40] VITALS: BMI 29.2
[2020-10-26] MEDS: SODIUM CHLORIDE 0.9% 1,000 ML IV SCH (15:07)
[2020-10-26] MEDS ORDERED: Potassium Replacement Protocol 1 EACH MISC MISCELLANE PRN (16:52)
[2020-10-26] MEDS ORDERED: POTASSIUM CHLORIDE 10 MEQ in WATER FOR INJECTION 1 100ML.BAG IVPB SCH (17:00)
--- NOTE | 2020-10-26 17:39 | P.CNPUL ---
History of Present Illness Consult date: 10/26/20 Reason for consult: dyspnea, cough, COPD Chief complaint: Ongoing severe shortness of breath History of present illness: Patient is a pleasant 59-year-old female with extensive history of smoking and nicotine use, patient is status post Trang procedure in June for perforated sigmoid diverticulitis admitted for colostomy reversal, performed successfully on 10/19/2020, patient initially was on epidural pain [employer] a nalgesia, patient has ongoing shortness of breath which is more pronounced and active during activity and exertion, patient has been on 3 to 5 L nasal cannula L nasal cannula oxygen now lately have been tapered down to 2 L oxygen saturation is 90%, patient has been slightly tachypneic with respiratory rate in high teens and heart rate sinus tachycardia 100 tp 110, chest x-ray performed on October 22 patchy bilateral basal infiltrate more so on the right side compared to left side developing pneumonia cannot be excluded, CAT scan revealed by basilar infiltrate with air bronchogram with emphysema in the upper lobes, no obvious pulmonary embolism seen in the central vasculature, patient white cell count is up to 13,500, labs significant for sodium was 138 potassium 3.4, cold with 19 pneumonia PCR is negative, patient currently on D.O. nab unit dose 4 times a day, also on her antihypertensive agents, DVT prophylaxis, Solu-Medrol 60 mg IV every 6 hourly with Zosyn 3.375 every 8 hourly past medical history significant for GERD hypertension hypertensive cardiovascular disease rheumatoid arthritis and diverticulosis, also had the MRSA infection in cheek area with abscess in June 2020, patient used to smoke heavily about 1 pack per day for 30 years quit about 8 years ago, patient has been getting infusion with Enbrel for rheumatoid arthritis once a week Review of Systems All systems: negative Past Medical History Past Medical History: GERD/Reflux, Hypertension, Rheumatoid Arthritis (RA) Additional Past Medical History / Comment(s): DIVERTICULOSIS History of Any Multi-Drug Resistant Organisms: MRSA Date of last positivie culture/infection: 07/07/20 MDRO Source:: MRSA FACE Past Surgical History: Joint Replacement, Orthopedic Surgery Additional Past Surgical History / Comment(s): KNEE SURGERIES LEFT X 9, left knee replaced, D & C, hysterectomy,. COLECTOMY Past Anesthesia/Blood Transfusion Reactions: No Reported Reaction, Family History of Problems w/ Anesthesia Additional Past Anesthesia/Blood Transfusion Reaction / Comment(s): daughter passed out after wisdom teeth removed Smoking Status: Former smoker - Past Family History Mother Family Medical History: Diabetes Mellitus, Hypertension Father Family Medical History: Hypertension, Renal Disease Brother(s) Family Medical History: Diabetes Mellitus Sister(s) Family Medical History: Diabetes Mellitus Daughter(s) Family Medical History: No Reported History Son(s) Family Medical History: No Reported History Medications and Allergies Home Medications Medication Instructions Recorded Confirmed Type Pantoprazole [Protonix] 40 mg PO Q48H 12/13/15 10/19/20 History amLODIPine BESYLATE [Amlodipine 5 mg PO DAILY 12/13/15 10/19/20 History Besylate] Cholecalciferol [Vitamin D3 (25 4,000 unit PO DAILY 07/02/20 10/19/20 History Mcg = 1000 Iu)] Etanercept [Enbrel Sureclick] 50 mg SQ FR #0 07/16/20 10/19/20 Rx ALPRAZolam [Xanax] 0.5 mg PO DIRECTED PRN 10/15/20 10/21/20 History Allergies Allergy/AdvReac Type Severity Reaction Status Date / Time hydrocodone [From Vicodin] Allergy Unknown sweating,blood Verified 10/15/20 15:54 pressure,n&v,dizziness oxycodone [From Percocet] Allergy Unknown sweating,bloodpressure Verified 10/15/20 15:54 drops,n/v, dizziness hydromorphone [From Dilaudid] Allergy sweating, Verified 10/15/20 15:54 blood pressure dropped, n/v,dizziness Physical Exam Vitals: Vital Signs Temp Pulse Pulse Resp BP Pulse Ox 10/26/20 16:44 90 10/26/20 16:21 88 10/26/20 14:00 98.2 F 99 18 106/51 90 L 10/26/20 11:57 90 10/26/20 11:50 92 10/26/20 08:57 90 10/26/20 08:45 89 10/26/20 07:56 98.5 F 96 16 139/82 91 L 10/26/20 07:27 91 L 10/26/20 05:35 98.7 F 10/26/20 02:00 100.5 F H 102 H 18 123/79 88 L 10/25/20 20:11 98 10/25/20 20:01 98 10/25/20 19:36 100.0 F H 104 H 16 121/73 90 L Intake and Output 10/26/20 10/26/20 10/26/20 06:59 14:59 22:59 Other: Voiding Method Toilet # Voids 1 # Bowel Movements 1 Weight 77.2 kg - Constitutional General appearance: average body habitus, cooperative, disheveled - EENT Eyes: PERRLA ENT: hearing grossly normal Ears: bilateral: normal - Neck Neck: normal ROM Carotids: bilateral: upstroke normal Thyroid: bilateral: normal size - Respiratory Respiratory: bilateral: rales (Bilateral basal area with bronchial breath sound more so on the left side compared right side), prolonged expiration - Cardiovascular Rhythm: regular Heart sounds: normal: S1, S2 - Gastrointestinal Surgical incision and the scar is stable healing nicely General gastrointestinal: decreased bowel sounds, soft - Integumentary Integumentary: normal turgor - Neurologic Neurologic: CNII-XII intact - Musculoskeletal Musculoskeletal: gait normal, generalized weakness, strength equal bilaterally - Psychiatric Psychiatric: A&O x's 3, appropriate affect, intact judgment & insight Results - Laboratory Findings CBC and BMP: 10/26/20 07:28 10/26/20 07:28 Abnormal lab findings: Abnormal Labs 10/20/20 10/20/20 10/21/20 06:56 06:56 05:58 WBC 21.31 H 14.61 H RBC Hgb Hct MCHC 31.1 L Absolute Nucleated RBC 0.08 H Immature Gran # 0.09 H Neutrophils # 18.53 H 12.94 H Monocytes # 1.07 H Eosinophils # 0.45 H 0.01 L NRBC/100 WBC Diff 0.4 H Sodium Potassium Chloride 110 H Carbon Dioxide 19.7 L Anion Gap BUN Creatinine Glucose 177 H Calcium Total Bilirubin AST Alkaline Phosphatase Total Protein Albumin Albumin/Globulin Ratio 10/21/20 10/22/20 10/22/20 05:58 06:32 06:32 WBC 11.36 H RBC Hgb Hct MCHC Absolute Nucleated RBC Immature Gran # 0.05 H Neutrophils # 9.89 H Monocytes # Eosinophils # NRBC/100 WBC Diff Sodium Potassium Chloride 111 H Carbon Dioxide 19.5 L Anion Gap BUN 7.0 L Creatinine 0.5 L Glucose 149 H 128 H Calcium 8.6 L 8.5 L Total Bilirubin 1.4 H AST Alkaline Phosphatase Total Protein 5.8 L Albumin 3.30 L Albumin/Globulin Ratio 1.32 L 10/23/20 10/23/20 10/24/20 05:37 05:37 08:55 WBC 12.73 H 12.1 H RBC Hgb Hct MCHC Absolute Nucleated RBC Immature Gran # 0.06 H Neutrophils # 11.18 H 10.1 H Monocytes # Eosinophils # NRBC/100 WBC Diff Sodium Potassium Chloride Carbon Dioxide Anion Gap 15.90 H BUN 7.0 L Creatinine 0.5 L Glucose 125 H Calcium 8.3 L Total Bilirubin AST Alkaline Phosphatase Total Protein Albumin Albumin/Globulin Ratio 10/24/20 10/25/20 10/25/20 08:55 05:53 05:53 WBC 10.22 H RBC 3.89 L Hgb 11.1 L Hct 34.7 L MCHC Absolute Nucleated RBC Immature Gran # 0.11 H Neutrophils # 7.71 H Monocytes # Eosinophils # NRBC/100 WBC Diff Sodium 133 L Potassium 2.7 L* Chloride 95 L Carbon Dioxide 31 H Anion Gap BUN 6.0 L Creatinine 0.5 L Glucose 113 H Calcium 8.0 L 8.1 L Total Bilirubin AST Alkaline Phosphatase Total Protein Albumin Albumin/Globulin Ratio 10/25/20 10/26/20 10/26/20 09:44 07:28 07:28 WBC 13.53 H RBC 3.99 L Hgb 11.5 L Hct 35.2 L MCHC Absolute Nucleated RBC Immature Gran # Neutrophils # Monocytes # Eosinophils # NRBC/100 WBC Diff Sodium 134 L Potassium 3.4 L Chloride Carbon Dioxide Anion Gap 15.40 H BUN 8.0 L Creatinine 0.5 L Glucose 66 L Calcium 8.0 L Total Bilirubin AST 40 H 39 H Alkaline Phosphatase 180 H 178 H Total Protein 5.5 L 5.6 L Albumin 2.7 L 3.10 L Albumin/Globulin Ratio 1.24 L - Diagnostic Findings Chest x-ray: report reviewed, image reviewed CT scan - chest: report reviewed, image reviewed Assessment and Plan Assessment: Bilateral basal pneumonia left more than right, patient has been adequately covered with Zosyn however given history of MRSA in mouth we will add IV vancomycin as well pending his sputum studies Acute hypoxic respiratory failure Immunosuppressed status Status post reversal of colostomy Electrolyte imbalance with hypokalemia Advanced rheumatoid arthritis Hypertension hypertensive cardiovascular disease Baseline COPD Plan: Overall plan as above and IV vancomycin Recommend deep breathing exercises incentive spirometry Maximal inspiratory pressure Obtain his sputum studies patient may need a bronchoscopy if unable to obtain sputum studies Further plan of care as per clinical response of the patient Time with Patient: Greater than 30
[2020-10-26] MEDS ORDERED: VANCOMYCIN IV PER PHARMACY 1 EACH MISC MISCELLANE PRN (17:49)
[2020-10-26] MEDS: POTASSIUM CHLORIDE ER 20 MEQ TAB.ER PO SCH ×2 (18:01→20:36)
[2020-10-26] MEDS: VANCOMYCIN 1,250 MG in SODIUM CHLORIDE 0.9% 250 ML IVPB SCH (20:35)
[2020-10-27] MEDS: METOCLOPRAMIDE 5 MG/ML 2 ML VIAL IVP SCH ×5 (00:22→23:59)
[2020-10-27] MEDS: methylPREDNISolone SOD SUCCI 125 MG/2 ML VIAL IV SCH (00:22)
[2020-10-27] MEDS: HEPARIN SODIUM,PORCINE/PF 5,000 UNIT/0.5 ML SYRINGE SQ SCH ×4 (00:23→23:59)
[2020-10-27] MEDS: PIPERACILLIN-TAZOBACTAM 3.375 GM in SODIUM CHLORIDE 0.9% 100 ML IVPB SCH ×5 (00:23→23:58)
[2020-10-27] MEDS: ALPRAZolam 0.5 MG TAB PO PRN ×3 (00:23→21:38)
[2020-10-27] MEDS: SODIUM CHLORIDE 0.9% 1,000 ML IV SCH ×2 (02:10→16:18)
[2020-10-27] MEDS: VANCOMYCIN 1,250 MG in SODIUM CHLORIDE 0.9% 250 ML IVPB SCH ×4 (02:12→21:38)
[2020-10-27] MEDS: IPRATROPIUM-ALBUTEROL 3 ML NEB INHALATION SCH ×4 (07:32→21:20)
[2020-10-27] MEDS: BUDESONIDE 0.5 MG/2 ML NEBU INHALATION SCH ×2 (07:32→21:21)
[2020-10-27] MEDS: traMADol 50 MG TAB PO PRN ×2 (09:32→21:37)
[2020-10-27] MEDS: amLODIPine 5 MG TAB PO SCH (09:33)
[2020-10-27] MEDS: PANTOPRAZOLE 40 MG/10 ML VIAL IVP SCH ×2 (09:33→21:36)
[2020-10-27 09:43] LABS: HGB 11.8 g/dL (12.0-15.0); MCH 28.7 pg (27.0-32.0); MCHC 32.8 g/dL (32.0-37.0); MCV 87.6 fL (80.0-97.0); Mean Platelet Volume 9.7 fL (9.5-12.2); Platelet Count 355 X 10*3/uL (140-440); RBC 4.11 X 10*6/uL (4.10-5.20); RDW 13.2 % (11.5-14.5); WBC 11.64 X 10*3/uL (4.50-10.00)
[2020-10-27 10:31] LABS: African American GFR (CKD) 123.6 (60.0-200.0); Anion Gap 12.4 mmol/L (4.00-12.00); Calcium 8.7 mg/dL (8.7-10.3); Carbon Dioxide 25.6 mmol/L (21.6-31.8); Non-African American GFR(CKD) 106.7 (60.0-200.0); Potassium 4.2 mmol/L (3.5-5.5)
--- NOTE | 2020-10-27 10:54 | P.PN ---
Subjective Progress Note Date: 10/27/20 HISTORY OF PRESENT ILLNESS This is a 59-year-old female patient of Dr. Cisneros with past medical history significant for hypertension and hypertensive cardiovascular di sease with left ventricular hypertrophy, osteoarthritis, gastroesophageal reflux disease, diverticulosis, rheumatoid arthritis diagnosed in 2005 on Enbrel and followed by Dr. Goldman. Patient was hospitalized July 03 to July 05 for sepsis related to facial cellulitis and an immunocompromised host. Thereafter, she had some abdominal pain, for which CAT scan was concerning for perforated sigmoid diverticula, requiring exploratory appendectomy and sigmoid colectomy and end colostomy, 07/08/2020. She now comes in for colostomy reversal, for which Dr. Lebron has performed these on 10/19/2020. Patient has an epidural pain pump, however she is complaining of significant abdominal pain with abdominal distention, no nausea however she is up scopolamine patch, she has uncontrolled pain, no flatus, patient currently is nothing by mouth except medications. Patient denies any fever or chills or shortness of breath no chest pain, no cough, however patient's fearful of getting any nausea vomiting, acid technically hurts even more. She does have ALLERGIES to hydrocodone, oxycodone, hydromorphone, plan for pain management would be tramadol, and the current epidural pain pump. 10/21: Patient evaluated, laying comfortably in the bed. Patient reports she's had a few bouts of diarrhea, she denies any nausea or vomiting. She is tolerating ice chips and popsicles. Her abdomen is soft, nondistended, dressing is clean dry and intact, she has good bowel sounds. Laboratory values showed WB C 14.6, hemoglobin 14.2, sodium 141, potassium 5.3, BUN 9, creatinine 0.7. Vital signs are stable temperature of 98.3, heart rate 94, respiratory rate of 17, blood pressure 113/71, pulse ox 90% on room air. Incentive spirometer at bedside encouraged its use. 10/22: She states that she has been on long-term Protonix and wishes for this to be resumed and Pepcid discontinued which appears to have been done by general surgery. Patient is anxious to start eating. She states she is burping and pas [place] flatulence along with diarrhea. She has tenderness to the bilateral lower quadrants. Blood pressure has been elevated but patient states that all the readings are done after she has an emesis. Epidural has been removed. Anticipate Harris catheter to be removed today. Bicarb added to IV fluids. 10/23: Patient pulse ox continues to run on the low side 88-91% on room air. Patient states she had low pulse ox following her previous surgery. She denies feeling short of breath, no cough, no sputum production. She is only reaching 500 on incentive spirometry but at home prior to surgery, patient was reaching 3000. She has been afebrile, temperature max 99.7, heart rate 119, blood pressu re 129/82. Chest x-ray reveals patchy left greater than right bibasilar atelectasis and/or developing infiltrate. Patient started on ceftriaxone for possible early pneumonia. Repeat blood work reveals WBC 12.7, hemoglobin 12.6, platelet count 258. Patient is currently on clear liquid diet and tolerating. Harris catheter was removed yesterday and patient is voiding on her own. 10/24: Patient pulse ox remains low between 90 and 93% on oxygen. She is on 2-3 L. Nursing to do a home oxygen assessment for her. She does complain of shortness of breath with ambulation. She ambulated in the hallway yesterday and could not go very far past her room. She is reaching 1500 ML's on incentive spirometry. CTA of the chest ordered that found no evidence of pulmonary embolism. She is feeling better today in general. Bicarb drip will be discontinued. She continues to have abdominal bloating. She is on a full liquid diet that was started yesterday. She denies nausea vomiting. Repeat blood work reveals potassium 2.7 which will be replaced. Sodium 133, chloride 95, CO2 31, creatinine 0.61. WBC 12.1, hemoglobin 11.9, platelet count 264. 10/25: Patient had temperature of 100.7 yesterday afternoon, antibiotics changed to Zosyn. Urinalysis and blood cultures ordered. Yesterday, patient underwent CTA of the chest which revealed no pulmonary embolism. Coronary artery disease. Basilar atelectasis and emphysema. Patient encouraged to continue incentive spirometry and increase activity. She does complain of continued bloating and has not passed gas today. Heart rate 101, respiratory rate 18, blood pressure 123/73, pulse ox 88% on 3 L nasal cannula. Repeat blood work reveals WBC 10.2, hemoglobin 11.1, platelet count 242. Chemistry is pending. Repeat blood work ordered for tomorrow. 10/26: Pulse ox is morning is 91% on 5 L. She's been afebrile, heart rate 96, blood pressure 139/82. Temperature max was 100.5 at 2 AM. Coronavirus PCR was repeated yesterday which came back not detected. Urine culture from October 25 in process. Patient underwent CAT scan of the abdomen and pelvis revealed changes of colostomy reversal. Appropriate filling of colon without evidence of leak or obstruction. No evidence of abscess or free air. Findings suggest postoperative ileus. Surgery has changed diet to nothing by mouth except for ice chips medications popsicles and gum and added Reglan. Option of NG tube was offered to the patient but she declined at this time. Patient does complain of cough. We'll plan to add in consult with Dr. Kelly. 10/27: Patient has been seen by Dr. Kelly and ruled in for pneumonia. She is continued on Zosyn and he has added in vancomycin. Patient is reaching between 1015 100 on incentive spirometry. She still has shortness of breath with ambula ting. She is currently pulse ox 88% on 2 L nasal cannula. She's been afebrile, heart rate 100, blood pressure 161/93. Repeat blood work reveals WBC 11.6, hemoglobin 11.8, platelet count 355. Electrolytes are normal with BUN of 8 and creatinine 0.5. Blood sugar 172. Patient's still has mild bloating, she is passing stools. JOSHUA cortez, echocardiogram and repeat chest x-ray ordered for today. REVIEW OF SYSTEMS Constitutional: No fever, no chills, no night sweats. No weight change. No weakness, fatigue or lethargy. No daytime sleepiness. EENT: No headache. No blurred vision or double vision, no loss of vision. No loss of Hearing, no ringing in the ears, no dizziness. No nasal drainage or congestion. No epistaxis. No sore throat. Lungs: Reports continued shortness of breath, reports cough, no sputum production. No wheezing. Reports shortness of breath with activity. Cardiovascular: No chest pain, no lower extremity edema. No palpitations. No paroxysmal nocturnal dyspnea. No orthopnea. No lightheadedness or dizziness. No syncopal episodes. Abdominal: Reports abdominal pain. Reports abdominal bloating. No nausea, vomiting. No diarrhea. Denies constipation. No bloody or tarry stools denies loss of appetite. Genitourinary: No dysuria, increased frequency, urgency. No urinary retention. Musculoskeletal: No myalgias. No muscle weakness, no gait dysfunction, no frequent falls. No back pain. No neck pain. Integumentary: No wounds, no lesions. No rash or pruritus. No unusual bruising. Neurologic: No aphasia. No facial droop. No change in mentation. No head injury. No headache. No paralysis. No paresthesia. Psychiatric: No depression. No anxiety. Endocrine: No abnormal blood sugars. PHYSICAL EXAMINATION Gen: This is a 59-year-old female. Patient is resting in bed and appears to be comfortable and in no acute distress. HEENT: Head is atraumatic, normocephalic. Pupils equal, round. Sclerae is anicteric. NECK: Supple. No JVD. No lymphadenopathy. No thyromegaly. LUNGS: Diminished to the bilateral bases No intercostal retractions. Patient appears to be comfortable at rest. No accessory muscle usage. HEART: Regular rate and rhythm. No murmur. ABDOMEN: Mild distention, Soft. Bowel sounds are present. No masses. No tenderness. Dressing clean dry and intact. EXTREMITIES: No pedal edema. No calf tenderness. Dorsalis pedis palpable bilaterally. NEUROLOGICAL: Patient is awake, alert and oriented x3. Cranial nerves 2 through 12 are grossly intact. ASSESSMENT AND PLAN 1. Colostomy reversal 10/19/2020 with prior history of pneumoperitoneum on from perforated diverticulitis in July 08, requiring sigmoid colectomy and end colostomy. Continue Cepacol, dextrose normal saline with sodium bicarb at 125 mL per hour, Reglan 10 mg IV push every 6 hours as needed, Zofran as needed for nausea, scopolamine patch as needed, tramadol for pain. Continue clear liquid diet. 2. Postop ileus. Clear liquid diet, Reglan was added. 3. Hypertension, hypertensive cardiovascular disease. Continue hydralazine 10 mg IV push every 6 hours as needed for systolic blood pressure greater than 160. Continue Norvasc 5 mg daily. 4. Rheumatoid arthritis under the care of Dr. Goldman. Enbrel and prednisone on hold. 5. Gastroesophageal reflux disease. Continue Pepcid 20 twice a day. 6. Generalized osteoarthritis, stable. 7. 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 Chronic immunosuppressed patient, secondary to Enbrel monitor for wound healing process and nutrition 9. Acute hypoxic respiratory failure requiring oxygen therapy most likely secondary to atelectasis and pneumonia. Continue Zosyn, vancomycin added, continue Pulmicort 0.5 mg twice daily and nebulizer treatment as needed. Consult added for Dr. Kelly from pulmonary medicine appreciated. 10. DVT prophylaxis heparin subcu 11. COVID-19 testing negative. Patient has been hospitalized during a pandemic. DISCHARGE PLAN home. Impression and plan of care have been directed as dictated by the signing physician. Renita Ornelas nurse practitioner acting as scribe for signing physician. Objective - Vital Signs Vital signs: Vital Signs Temp 97.6 F 10/27/20 07:48 Pulse 100 10/27/20 07:48 Resp 20 10/27/20 07:48 BP 161/93 10/27/20 07:48 Pulse Ox 88 L 10/27/20 07:48 Intake & Output 10/26/20 10/27/20 10/27/20 18:59 06:59 18:59 Weight 77.2 kg Other: Voiding Method Toilet Toilet Toilet # Voids 1 # Bowel Movements 1 - Labs CBC & Chem 7: 10/27/20 06:12 10/27/20 06:12 Labs: Abnormal Lab Results - Last 24 Hours (Table) 10/26/20 10/26/20 Range/Units 07:28 07:28 WBC 13.53 H (4.50-10.00) X 10*3/uL RBC 3.99 L (4.10-5.20) X 10*6/uL Hgb 11.5 L (12.0-15.0) g/dL Hct 35.2 L (37.2-46.3) % Sodium 134 L (135-145) mmol/L Potassium 3.4 L (3.5-5.5) mmol/L Anion Gap 15.40 H (4.00-12.00) mmol/L BUN 8.0 L (9.0-27.0) mg/dL Creatinine 0.5 L (0.6-1.5) mg/dL Glucose 66 L (70-110) mg/dL Calcium 8.0 L (8.7-10.3) mg/dL AST 39 H (13-35) U/L Alkaline Phosphatase 178 H (41-126) U/L Total Protein 5.6 L (6.2-8.2) g/dL Albumin 3.10 L (3.80-4.90) g/dL Albumin/Globulin Ratio 1.24 L (1.60-3.17) g/dL Microbiology - Last 24 Hours (Table) 10/25/20 09:44 Blood Culture - Preliminary Blood No Growth after 24 hours
[2020-10-27 11:10] LABS: Basophils # (A) 0.02 X 10*3/uL (0.00-0.10); Basophils % (A) 0.2 %; Eosinophils # (A) 0 X 10*3/uL (0.04-0.35); Eosinophils % (A) 0 %; Lymphocytes # (A) 0.93 X 10*3/uL (0.90-5.00); Monocytes # (A) 0.22 X 10*3/uL (0.20-1.00); Monocytes % (A) 1.9 %; Neutrophils # (A) 10.13 X 10*3/uL (1.80-7.70)
--- NOTE | 2020-10-27 12:17 | P.PN ---
Subjective Progress Note Date: 10/27/20 Principal diagnosis: Bilateral basal pneumonia left more than right, patient has been adequately covered with Zosyn however given history of MRSA in mouth we will add IV vancomycin as well pending his sputum studies Acute hypoxic respiratory failure Immunosuppressed status Status post reversal of colostomy Electrolyte imbalance with hypokalemia Advanced rheumatoid arthritis Hypertension hypertensive cardiovascular disease Baseline COPD 10/27/2020, patient seen eval examined during the rounds labs reviewed medications reviewed care plan discussed, respiratory status remains stable denies any chest pain but however get short of breath on minimal activity and exertion, remains on supplemental oxygen ongoing cough is present, cooperative provider for sputum Gram stain and culture, patient updated about computed tomography scan finding, remains afebrile hemodynamically stable saturation is 91% 3 L oxygen, labs reviewed white cell count 11,600, I have discussed with her about bronchoscopy and buttock bronchoalveolar lavage early next week Patient is a pleasant 59-year-old female with extensive history of smoking and nicotine use, patient is status post Trang procedure in June for perforated sigmoid diverticulitis admitted for colostomy reversal, performed successfully on 10/19/2020, patient initially was on epidural pain [employer] analgesia, patient has ongoing shortness of breath which is more pronounced and active during activity and exertion, patient has been on 3 to 5 L nasal cannula L nasal cannula oxygen now lately have been tapered down to 2 L oxygen saturation is 90%, patient has been slightly tachypneic with respiratory rate in high teens and heart rate sinus tachycardia 100 tp 110, chest x-ray performed on October 22 patchy bilateral basal infiltrate more so on the right side compared to left side developing pneumonia cannot be excluded, CAT scan revealed by basilar infiltrate with air bronchogram with emphysema in the upper lobes, no obvious pulmonary embolism seen in the central vasculature, patient white cell count is up to 13,500, labs significant for sodium was 138 potassium 3.4, cold with 19 pneumonia PCR is negative, patient currently on D.O. nab unit dose 4 times a day, also on her antihypertensive agents, DVT prophylaxis, Solu-Medrol 60 mg IV every 6 hourly with Zosyn 3.375 every 8 hourly past medical history significant for GERD hypertension hypertensive cardiovascular disease rheumatoid arthritis and diverticulosis, also had the MRSA infection in cheek area with abscess in June 2020, patient used to smoke heavily about 1 pack per day for 30 years quit about 8 years ago, patient has been getting infusion with Enbrel for rheumatoid arthritis once a week Objective - Vital Signs Vital signs: Vital Signs Temp 97.6 F 10/27/20 07:48 Pulse 88 10/27/20 11:22 Resp 20 10/27/20 07:48 BP 161/93 10/27/20 07:48 Pulse Ox 91 L 10/27/20 11:44 Intake & Output 10/26/20 10/27/20 10/27/20 18:59 06:59 18:59 Weight 77.2 kg Other: Voiding Method Toilet Toilet Toilet # Voids 1 # Bowel Movements 1 - Exam - Constitutional General appearance: average body habitus, cooperative, disheveled - EENT Eyes: PERRLA ENT: hearing grossly normal Ears: bilateral: normal - Neck Neck: normal ROM Carotids: bilateral: upstroke normal Thyroid: bilateral: normal size - Respiratory Respiratory: bilateral: rales (Bilateral basal area with bronchial breath sound more so on the left side compared right side), prolonged expiration - Cardiovascular Rhythm: regular Heart sounds: normal: S1, S2 - Gastrointestinal Surgical incision and the scar is stable healing nicely General gastrointestinal: decreased bowel sounds, soft - Integumentary Integumentary: normal turgor - Neurologic Neurologic: CNII-XII intact - Musculoskeletal Musculoskeletal: gait normal, generalized weakness, strength equal bilaterally - Psychiatric Psychiatric: A&O x's 3, appropriate affect, intact judgment & insight - Labs CBC & Chem 7: 10/27/20 06:12 10/27/20 06:12 Labs: Abnormal Lab Results - Last 24 Hours (Table) 10/27/20 10/27/20 Range/Units 06:12 06:12 WBC 11.64 H (4.50-10.00) X 10*3/uL Hgb 11.8 L (12.0-15.0) g/dL Hct 36.0 L (37.2-46.3) % Immature Gran # 0.34 H (0.00-0.04) X 10*3/uL Neutrophils # 10.13 H (1.80-7.70) X 10*3/uL Eosinophils # 0 L (0.04-0.35) X 10*3/uL Anion Gap 12.40 H (4.00-12.00) mmol/L BUN 8.0 L (9.0-27.0) mg/dL Creatinine 0.5 L (0.6-1.5) mg/dL Glucose 172 H (70-110) mg/dL Microbiology - Last 24 Hours (Table) 10/25/20 09:44 Blood Culture - Preliminary Blood No Growth after 48 hours Assessment and Plan Assessment: Bilateral basal pneumonia left more than right, patient has been adequately covered with Zosyn however given history of MRSA in mouth we will add IV vancomycin as well pending his sputum studies Acute hypoxic respiratory failure Immunosuppressed status Status post reversal of colostomy Electrolyte imbalance with hypokalemia Advanced rheumatoid arthritis Hypertension hypertensive cardiovascular disease Baseline COPD Plan: Bronchoscopy and bronchoalveolar lavage early next week Continue Zosyn and and IV vancomycin Recommend deep breathing exercises incentive spirometry Follow-up on sputum studies Further plan of care as per clinical response of the patient Time with Patient: Greater than 30
--- NOTE | 2020-10-27 13:41 | P.PN ---
Subjective Progress Note Date: 10/27/20 CHIEF COMPLAINT: Diverticulitis HISTORY OF PRESENT ILLNESS: The patient is a 59-year-old female with d iverticulitis status post colostomy reversal. She is now on clear liquid diet. No flatus. She is undergoing echo at bedside. ROS: No reports of nausea and vomiting. No bowel movements. No fevers or chills. No productive sputum PHYSICAL EXAM: VITAL SIGNS: Reviewed CONSTITUTIONAL: Well developed and in no acute distress. EYES: Conjuctivae without sclera icterus. Extraocular movements grossly intact. HEAD, EARS, NOSE, THROAT: Moist buccal mucosa. Head is atraumatic, normocephalic. Hears conversational speech. No nasal drainage. NECK: Supple. No thyroidomegaly. RESPIRATORY: Non-labored respirations and equal bilateral excursions. CARDIOVASCULAR: Palpable 2+ radial pulses. ABDOMEN: No peritonitis. Dressing intact. MUSCULOSKELETAL: No gross deformity of the lower extremities noted. No clubbing. No cyanosis. SKIN: Good skin turgor. Well perfused. NEUROLOGIC: Cranial nerves II through XII grossly intact. No focal or lateralizing signs. PSYCH: Appropriate affect. Alert and oriented to person, place and time. STUDIES: Reviewed CLINICAL LABS: Reviewed. WBC down from 13,000 to 11,000. ASSESSMENT: 1. Diverticulitis 2. Status post colostomy reversal PLAN: 1. Await bowel function 2. Continue liquid diet Objective - Vital Signs Vital signs: Vital Signs Temp 97.6 F 10/27/20 07:48 Pulse 100 10/27/20 07:48 Resp 20 10/27/20 07:48 BP 161/93 10/27/20 07:48 Pulse Ox 88 L 10/27/20 07:48 Intake & Output 10/26/20 10/27/20 10/27/20 18:59 06:59 18:59 Weight 77.2 kg Other: Voiding Method Toilet Toilet Toilet # Voids 1 # Bowel Movements 1 - Labs CBC & Chem 7: 10/27/20 06:12 10/27/20 06:12 Labs: Abnormal Lab Results - Last 24 Hours (Table) 10/26/20 10/26/20 10/27/20 Range/Units 07:28 07:28 06:12 WBC 13.53 H 11.64 H (4.50-10.00) X 10*3/uL RBC 3.99 L (4.10-5.20) X 10*6/uL Hgb 11.5 L 11.8 L (12.0-15.0) g/dL Hct 35.2 L 36.0 L (37.2-46.3) % Sodium 134 L (135-145) mmol/L Potassium 3.4 L (3.5-5.5) mmol/L Anion Gap 15.40 H (4.00-12.00) mmol/L BUN 8.0 L (9.0-27.0) mg/dL Creatinine 0.5 L (0.6-1.5) mg/dL Glucose 66 L (70-110) mg/dL Calcium 8.0 L (8.7-10.3) mg/dL AST 39 H (13-35) U/L Alkaline Phosphatase 178 H (41-126) U/L Total Protein 5.6 L (6.2-8.2) g/dL Albumin 3.10 L (3.80-4.90) g/dL Albumin/Globulin Ratio 1.24 L (1.60-3.17) g/dL Microbiology - Last 24 Hours (Table) 10/25/20 09:44 Blood Culture - Preliminary Blood No Growth after 24 hours Assessment and Plan (1) History of colostomy reversal Current Visit: Yes Status: Acute Code(s): Z98.890 - OTHER SPECIFIED POSTPROCEDURAL STATES SNOMED Code(s): 905093827 (2) Diverticulitis of large intestine with perforation Current Visit: Yes Status: Acute Code(s): K57.20 - DVTRCLI OF LG INT W PERFORATION AND ABSCESS W/O BLEEDING SNOMED Code(s): 3867330 (3) Colostomy status Current Visit: No Status: Acute Code(s): Z93.3 - COLOSTOMY STATUS SNOMED Code(s): 108822081
--- NOTE | 2020-10-27 13:54 | ECHOF ---
Referral Reason:LVF MEASUREMENTS -------- HEIGHT: 162.6 cm WEIGHT: 77.1 kg BP: 161/93 RVIDd: 3.7 cm (< 3.3) IVSd: 1.4 cm (0.6 - 1.1) LVIDd: 4.1 cm (3.9 - 5.3) LVPWd: 1.5 cm (0.6 - 1.1) IVSs: 2.1 cm LVIDs: 1.7 cm LVPWs: 1.9 cm LAESV Index (A-L): 24.09 ml/m Ao Diam: 2.7 cm (2.0 - 3.7) AV Cusp: 1.9 cm (1.5 - 2.6) LA Diam: 3.9 cm (2.7 - 3.8) MV EXCURSION: 15.965 mm (> 18.000) MV EF SLOPE: 75 mm/s (70 - 150) EPSS: 0.6 cm MV E Meir: 1.18 m/s MV DecT: 183 ms MV A Meir: 1.21 m/s MV E/A Ratio: 0.97 RAP: 5.00 mmHg RVSP: 29.38 mmHg FINDINGS -------- Sinus rhythm. Suboptimal image quality - poor subcostal views. The left ventricular size is normal. There is moderate concentric left ventricular hypertrophy. O verall left ventricular systolic function is normal with, an EF between 55 - 60 %. The diastolic fi lling pattern is normal for the age of the patient 13.83. The right ventricle is mildly enlarged. Normal LA size by volume 22+/-6 ml/m2. The right atrial size is normal. Interatrial and interventricular septum intact. The aortic valve is trileaflet and appears structurally normal. There is no evidence of aortic regu rgitation. There is no evidence of aortic stenosis. Mild mitral regurgitation is present. Mild tricuspid regurgitation present. There is no evidence of pulmonary hypertension. The right v entricular systolic pressure, as measured by Doppler, is 29.38mmHg. There is no pulmonic regurgitation present. The aortic root size is normal. IVC Not well visulized. There is no pericardial effusion. CONCLUSIONS -------- 1. The left ventricular size is normal. 2. There is moderate concentric left ventricular hypertrophy. 3. Overall left ventricular systolic function is normal with, an EF between 55 - 60 %. 4. The diastolic filling pattern is normal for the age of the patient 13.83 5. The right ventricle is mildly enlarged. 6. Mild mitral regurgitation is present. 7. Mild tricuspid regurgitation present. PROGRAM DEVELOPMENT SPECIALIST: Ximena Prakash RDCS
--- NOTE | 2020-10-27 13:59 | XR ---
EXAMINATION TYPE: XR chest 2V DATE OF EXAM: 10/27/2020 COMPARISON: CTA chest 3 days ago. Chest x-ray 5 days ago. HISTORY: Hypoxia. TECHNIQUE: Frontal and lateral views of the chest are obtained. FINDINGS: There is background chronic emphysematous change with persistent small to tiny right great er than left pleural effusions. There is persistent lateral left basilar linear scarring and/or atel ectasis. The cardiac silhouette size is stable and upper limits of normal. The osseous structures a re intact. IMPRESSION: Chronic emphysematous change with small to tiny pleural effusions and lateral left basil ar linear atelectasis is redemonstrated.
[2020-10-28] MEDS ORDERED: VANCOMYCIN TROUGH DUE 1 EACH MISC MISCELLANE ONE (02:00)
[2020-10-28] MEDS: VANCOMYCIN 1,250 MG in SODIUM CHLORIDE 0.9% 250 ML IVPB SCH ×3 (03:12→21:58)
[2020-10-28] MEDS: METOCLOPRAMIDE 5 MG/ML 2 ML VIAL IVP SCH ×3 (06:17→17:35)
[2020-10-28] MEDS: SODIUM CHLORIDE 0.9% 1,000 ML IV SCH ×2 (06:18→17:36)
[2020-10-28] MEDS: amLODIPine 5 MG TAB PO SCH (07:31)
[2020-10-28] MEDS: PIPERACILLIN-TAZOBACTAM 3.375 GM in SODIUM CHLORIDE 0.9% 100 ML IVPB SCH ×2 (07:31→16:04)
[2020-10-28] MEDS: PANTOPRAZOLE 40 MG/10 ML VIAL IVP SCH ×2 (07:32→21:58)
[2020-10-28] MEDS: HEPARIN SODIUM,PORCINE/PF 5,000 UNIT/0.5 ML SYRINGE SQ SCH ×2 (07:32→16:04)
[2020-10-28] MEDS: traMADol 50 MG TAB PO PRN ×2 (07:33→21:59)
[2020-10-28] MEDS: SCOPOLAMINE 1.5MG/72HR PATCH TRANSDERM SCH (07:33)
[2020-10-28] MEDS: IPRATROPIUM-ALBUTEROL 3 ML NEB INHALATION SCH ×4 (07:54→21:21)
[2020-10-28] MEDS: BUDESONIDE 0.5 MG/2 ML NEBU INHALATION SCH ×2 (07:54→21:20)
[2020-10-28 10:00] LABS: African American GFR (CKD) 123.6 (60.0-200.0); Albumin 2.9 g/dL (3.80-4.90); Albumin/Globulin Ratio 1.26 (1.60-3.17); Anion Gap 10.2 mmol/L (4.00-12.00); Carbon Dioxide 26.8 mmol/L (21.6-31.8); Globulin 2.3 g/dL (1.6-3.3); Non-African American GFR(CKD) 106.7 (60.0-200.0); Potassium 3.9 mmol/L (3.5-5.5); Total Bilirubin 0.5 mg/dL (0.2-1.2); Total Protein 5.2 g/dL (6.2-8.2)
--- NOTE | 2020-10-28 10:31 | P.PN ---
Subjective Progress Note Date: 10/28/20 Principal diagnosis: Bilateral basal pneumonia left more than right, patient has been adequately covered with Zosyn however given history of MRSA in mouth we will add IV vancomycin as well pending his sputum studies Acute hypoxic respiratory failure Immunosuppressed status Status post reversal of colostomy Electrolyte imbalance with hypokalemia Advanced rheumatoid arthritis Hypertension hypertensive cardiovascular disease Baseline COPD 10/28/2020, patient seen eval examined during the rounds labs reviewed medications reviewed and still have shortness of breath activity and exertion, patient is scheduled for bronchoscopy for tomorrow to be nothing by mouth after midnight procedure have been explained to the patient, currently on Vanco and Zosyn sputum studies are pending 10/27/2020, patient seen eval examined during the rounds labs reviewed medications reviewed care plan discussed, respiratory status remains stable denies any chest pain but however get short of breath on minimal activity and exertion, remains on supplemental oxygen ongoing cough is present, cooperative provider for sputum Gram stain and culture, patient updated about computed tomography scan finding, remains afebrile hemodynamically stable saturation is 91% 3 L oxygen, labs reviewed white cell count 11,600, I have discussed with her about bronchoscopy and buttock bronchoalveolar lavage early next week Patient is a pleasant 59-year-old female with extensive history of smoking and nicotine use, patient is status post Trang procedure in June for perforated sigmoid diverticulitis admitted for colostomy reversal, performed successfully on 10/19/2020, patient initially was on epidural pain [employer] analgesia, patient has ongoing shortness of breath which is more pronounced and active during activity and exertion, patient has been on 3 to 5 L nasal cannula L nasal cannula oxygen now lately have been tapered down to 2 L oxygen saturation is 90%, patient has been slightly tachypneic with respiratory rate in high teens and heart rate sinus tachycardia 100 tp 110, chest x-ray performed on October 22 patchy bilateral basal infiltrate more so on the right side compared to left side developing pneumonia cannot be excluded, CAT scan revealed by basilar infiltrate with air bronchogram with emphysema in the upper lobes, no obvious pulmonary embolism seen in the central vasculature, patient white cell count is up to 13,500, labs significant for sodium was 138 potassium 3.4, cold with 19 pneumonia PCR is negative, patient currently on D.O. nab unit dose 4 times a day, also on her antihypertensive agents, DVT prophylaxis, Solu-Medrol 60 mg IV every 6 hourly with Zosyn 3.375 every 8 hourly past medical history significant for GERD hypertension hypertensive cardiovascular disease rheumatoid arthritis and diverticulosis, also had the MRSA infection in cheek area with abscess in June 2020, patient used to smoke heavily about 1 pack per day for 30 years quit about 8 years ago, patient has been getting infusion with Enbrel for rheumatoid arthritis once a week Objective - Vital Signs Vital signs: Vital Signs Temp 98.4 F 10/28/20 07:34 Pulse 92 10/28/20 08:05 Resp 16 10/28/20 07:34 BP 114/73 10/28/20 07:34 Pulse Ox 96 10/28/20 07:34 Intake & Output 10/27/20 10/28/20 10/28/20 18:59 06:59 18:59 Other: Voiding Method Toilet Toilet Toilet - Exam - Constitutional General appearance: average body habitus, cooperative, disheveled - EENT Eyes: PERRLA ENT: hearing grossly normal Ears: bilateral: normal - Neck Neck: normal ROM Carotids: bilateral: upstroke normal Thyroid: bilateral: normal size - Respiratory Respiratory: bilateral: rales (Bilateral basal area with bronchial breath sound more so on the left side compared right side), prolonged expiration - Cardiovascular Rhythm: regular Heart sounds: normal: S1, S2 - Gastrointestinal Surgical incision and the scar is stable healing nicely General gastrointestinal: decreased bowel sounds, soft - Integumentary Integumentary: normal turgor - Neurologic Neurologic: CNII-XII intact - Musculoskeletal Musculoskeletal: gait normal, generalized weakness, strength equal bilaterally - Psychiatric Psychiatric: A&O x's 3, appropriate affect, intact judgment & insight - Labs CBC & Chem 7: 10/27/20 06:12 10/28/20 06:15 Labs: Abnormal Lab Results - Last 24 Hours (Table) 10/27/20 10/27/20 10/28/20 Range/Units 06:12 06:12 06:15 Immature Gran # 0.34 H (0.00-0.04) X 10*3/uL Neutrophils # 10.13 H (1.80-7.70) X 10*3/uL Eosinophils # 0 L (0.04-0.35) X 10*3/uL Anion Gap 12.40 H (4.00-12.00) mmol/L BUN 8.0 L (9.0-27.0) mg/dL Creatinine 0.5 L 0.5 L (0.6-1.5) mg/dL Glucose 172 H (70-110) mg/dL Calcium 8.0 L (8.7-10.3) mg/dL Alkaline Phosphatase 137 H (41-126) U/L Total Protein 5.2 L (6.2-8.2) g/dL Albumin 2.90 L (3.80-4.90) g/dL Albumin/Globulin Ratio 1.26 L (1.60-3.17) g/dL Microbiology - Last 24 Hours (Table) 10/25/20 08:30 Urine Culture - Final Urine,Clean Catch Enterococcus faecium 10/25/20 09:44 Blood Culture - Preliminary Blood No Growth after 48 hours Assessment and Plan Assessment: Bilateral basal pneumonia left more than right, patient has been adequately covered with Zosyn however given history of MRSA in mouth we will add IV vancomycin as well pending his sputum studies Acute hypoxic respiratory failure Immunosuppressed status Status post reversal of colostomy Electrolyte imbalance with hypokalemia Advanced rheumatoid arthritis Hypertension hypertensive cardiovascular disease Baseline COPD Plan: Bronchoscopy and bronchoalveolar lavage early next week Continue Zosyn and and IV vancomycin Recommend deep breathing exercises incentive spirometry Follow-up on sputum studies Further plan of care as per clinical response of the patient Time with Patient: Greater than 30
[2020-10-28 10:41] LABS: HCT 33.7 % (37.2-46.3); HGB 10.9 g/dL (12.0-15.0); MCH 28.4 pg (27.0-32.0); MCHC 32.3 g/dL (32.0-37.0); MCV 87.8 fL (80.0-97.0); Mean Platelet Volume 9.5 fL (9.5-12.2); Platelet Count 406 X 10*3/uL (140-440); RBC 3.84 X 10*6/uL (4.10-5.20); RDW 13.4 % (11.5-14.5); WBC 17.91 X 10*3/uL (4.50-10.00)
[2020-10-28] MEDS: NYSTATIN 100,000 UNIT/ML SUSP 500,000 UNIT/5 ML CUP PO SCH ×4 (11:08→22:01)
--- NOTE | 2020-10-28 13:22 | P.PN ---
Subjective Progress Note Date: 10/28/20 HISTORY OF PRESENT ILLNESS This is a 59-year-old female patient of Dr. Cisneros with past medical history significant for hypertension and hypertensive cardiovascular di sease with left ventricular hypertrophy, osteoarthritis, gastroesophageal reflux disease, diverticulosis, rheumatoid arthritis diagnosed in 2005 on Enbrel and followed by Dr. Goldman. Patient was hospitalized July 03 to July 05 for sepsis related to facial cellulitis and an immunocompromised host. Thereafter, she had some abdominal pain, for which CAT scan was concerning for perforated sigmoid diverticula, requiring exploratory appendectomy and sigmoid colectomy and end colostomy, 07/08/2020. She now comes in for colostomy reversal, for which Dr. Lebron has performed these on 10/19/2020. Patient has an epidural pain pump, however she is complaining of significant abdominal pain with abdominal distention, no nausea however she is up scopolamine patch, she has uncontrolled pain, no flatus, patient currently is nothing by mouth except medications. Patient denies any fever or chills or shortness of breath no chest pain, no cough, however patient's fearful of getting any nausea vomiting, acid technically hurts even more. She does have ALLERGIES to hydrocodone, oxycodone, hydromorphone, plan for pain management would be tramadol, and the current epidural pain pump. 10/21: Patient evaluated, laying comfortably in the bed. Patient reports she's had a few bouts of diarrhea, she denies any nausea or vomiting. She is tolerating ice chips and popsicles. Her abdomen is soft, nondistended, dressing is clean dry and intact, she has good bowel sounds. Laboratory values showed WB C 14.6, hemoglobin 14.2, sodium 141, potassium 5.3, BUN 9, creatinine 0.7. Vital signs are stable temperature of 98.3, heart rate 94, respiratory rate of 17, blood pressure 113/71, pulse ox 90% on room air. Incentive spirometer at bedside encouraged its use. 10/22: She states that she has been on long-term Protonix and wishes for this to be resumed and Pepcid discontinued which appears to have been done by general surgery. Patient is anxious to start eating. She states she is burping and pas sing flatulence along with diarrhea. She has tenderness to the bilateral lower quadrants. Blood pressure has been elevated but patient states that all the readings are done after she has an emesis. Epidural has been removed. Anticipate Harris catheter to be removed today. Bicarb added to IV fluids. 10/23: Patient pulse ox continues to run on the low side 88-91% on room air. Patient states she had low pulse ox following her previous surgery. She denies feeling short of breath, no cough, no sputum production. She is only reaching 500 on incentive spirometry but at home prior to surgery, patient was reaching 3000. She has been afebrile, temperature max 99.7, heart rate 119, blood pressu re 129/82. Chest x-ray reveals patchy left greater than right bibasilar atelectasis and/or developing infiltrate. Patient started on ceftriaxone for possible early pneumonia. Repeat blood work reveals WBC 12.7, hemoglobin 12.6, platelet count 258. Patient is currently on clear liquid diet and tolerating. Harris catheter was removed yesterday and patient is voiding on her own. 10/24: Patient pulse ox remains low between 90 and 93% on oxygen. She is on 2-3 L. Nursing to do a home oxygen assessment for her. She does complain of shortness of breath with ambulation. She ambulated in the hallway yesterday and could not go very far past her room. She is reaching 1500 ML's on incentive spirometry. CTA of the chest ordered that found no evidence of pulmonary embolism. She is feeling better today in general. Bicarb drip will be discontinued. She continues to have abdominal bloating. She is on a full liquid diet that was started yesterday. She denies nausea vomiting. Repeat blood work reveals potassium 2.7 which will be replaced. Sodium 133, chloride 95, CO2 31, creatinine 0.61. WBC 12.1, hemoglobin 11.9, platelet count 264. 10/25: Patient had temperature of 100.7 yesterday afternoon, antibiotics changed to Zosyn. Urinalysis and blood cultures ordered. Yesterday, patient underwent CTA of the chest which revealed no pulmonary embolism. Coronary artery disease. Basilar atelectasis and emphysema. Patient encouraged to continue incentive spirometry and increase activity. She does complain of continued bloating and has not passed gas today. Heart rate 101, respiratory rate 18, blood pressure 123/73, pulse ox 88% on 3 L nasal cannula. Repeat blood work reveals WBC 10.2, hemoglobin 11.1, platelet count 242. Chemistry is pending. Repeat blood work ordered for tomorrow. 10/26: Pulse ox is morning is 91% on 5 L. She's been afebrile, heart rate 96, blood pressure 139/82. Temperature max was 100.5 at 2 AM. Coronavirus PCR was repeated yesterday which came back not detected. Urine culture from October 25 in process. Patient underwent CAT scan of the abdomen and pelvis revealed changes of colostomy reversal. Appropriate filling of colon without evidence of leak or obstruction. No evidence of abscess or free air. Findings suggest postoperative ileus. Surgery has changed diet to nothing by mouth except for ice chips medications popsicles and gum and added Reglan. Option of NG tube was offered to the patient but she declined at this time. Patient does complain of cough. We'll plan to add in consult with Dr. Kelly. 10/27: Patient has been seen by Dr. Kelly and ruled in for pneumonia. She is continued on Zosyn and he has added in vancomycin. Patient is reaching between 1015 100 on incentive spirometry. She still has shortness of breath with ambula ting. She is currently pulse ox 88% on 2 L nasal cannula. She's been afebrile, heart rate 100, blood pressure 161/93. Repeat blood work reveals WBC 11.6, hemoglobin 11.8, platelet count 355. Electrolytes are normal with BUN of 8 and creatinine 0.5. Blood sugar 172. Patient's still has mild bloating, she is passing stools. JOSHUA cortez, echocardiogram and repeat chest x-ray ordered for today. 10/28: Pulse ox during the night was 89% on 3 L this morning, 96 on 3 L. She's been afebrile, heart rate 96, blood pressure 114/73. Urine culture came back positive for enterococcus. Dr. Kelly is planning on bronchoscopy for tomorrow. Patient continues to have dyspnea especially with activity. She states she has not had a bowel movement was Seen a lot of gas last evening. She is reaching 750-1000 on incentive spirometry. Chest x-ray reveals chronic emphysematous change with small to tiny pleural effusions and lateral left basilar linear atelectasis. Echocardiogram reveals EF of 55-60% with moderate concentric left ventricular hypertrophy, mild mitral regurgitation, mild tricuspid regurgitation. REVIEW OF SYSTEMS Constitutional: No fever, no chills, no night sweats. No weight change. No weakness, fatigue or lethargy. No daytime sleepiness. EENT: No headache. No blurred vision or double vision, no loss of vision. No loss of Hearing, no ringing in the ears, no dizziness. No nasal drainage or congestion. No epistaxis. No sore throat. Lungs: Reports continued shortness of breath, reports cough, no sputum production. No wheezing. Reports shortness of breath with activity. Cardiovascular: No chest pain, no lower extremity edema. No palpitations. No paroxysmal nocturnal dyspnea. No orthopnea. No lightheadedness or dizziness. No syncopal episodes. Abdominal: Reports abdominal pain. Reports abdominal bloating. No nausea, vomiting. No diarrhea. Denies constipation. No bloody or tarry stools denies loss of appetite. Genitourinary: No dysuria, increased frequency, urgency. No urinary retention. Musculoskeletal: No myalgias. No muscle weakness, no gait dysfunction, no frequent falls. No back pain. No neck pain. Integumentary: No wounds, no lesions. No rash or pruritus. No unusual bruising. Neurologic: No aphasia. No facial droop. No change in mentation. No head injury. No headache. No paralysis. No paresthesia. Psychiatric: No depression. No anxiety. Endocrine: No abnormal blood sugars. PHYSICAL EXAMINATION Gen: This is a 59-year-old female. Patient is resting in bed and appears to be comfortable and in no acute distress. HEENT: Head is atraumatic, normocephalic. Pupils equal, round. Sclerae is anicteric. NECK: Supple. No JVD. No lymphadenopathy. No thyromegaly. LUNGS: Diminished to the bilateral bases No intercostal retractions. Patient appears to be comfortable at rest. No accessory muscle usage. HEART: Regular rate and rhythm. No murmur. ABDOMEN: Mild distention, Soft. Bowel sounds are present. No masses. No tenderness. Dressing clean dry and intact. EXTREMITIES: No pedal edema. No calf tenderness. Dorsalis pedis palpable bilaterally. NEUROLOGICAL: Patient is awake, alert and oriented x3. Cranial nerves 2 through 12 are grossly intact. ASSESSMENT AND PLAN 1. Colostomy reversal 10/19/2020 with prior history of pneumoperitoneum on from perforated diverticulitis in July 08, requiring sigmoid colectomy and end colostomy. Continue Cepacol, dextrose normal saline with sodium bicarb at 125 mL per hour, Reglan 10 mg IV push every 6 hours as needed, Zofran as needed for nausea, scopolamine patch as needed, tramadol for pain. Continue clear liquid diet. 2. Postop ileus. Clear liquid diet, Reglan was added. 3. Hypertension, hypertensive cardiovascular disease. Continue hydralazine 10 mg IV push every 6 hours as needed for systolic blood pressure greater than 160. Continue Norvasc 5 mg daily. 4. Rheumatoid arthritis under the care of Dr. Goldman. Enbrel and prednisone on hold. 5. Gastroesophageal reflux disease. Continue Pepcid 20 twice a day. 6. Generalized osteoarthritis, stable. 7. 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 Chronic immunosuppressed patient, secondary to Enbrel monitor for wound healing process and nutrition 9. Acute hypoxic respiratory failure requiring oxygen therapy most likely secondary to atelectasis and pneumonia. Continue Zosyn, vancomycin added, continue Pulmicort 0.5 mg twice daily and nebulizer treatment as needed. Consult added for Dr. Kelly from pulmonary medicine appreciated. Bronchoscopy scheduled for Thursday. 10. DVT prophylaxis heparin subcu 11. COVID-19 testing negative. Patient has been hospitalized during a pandemic. DISCHARGE PLAN home. Impression and plan of care have been directed as dictated by the signing physician. Renita Ornelas nurse practitioner acting as scribe for signing physician. Objective - Vital Signs Vital signs: Vital Signs Temp 98.4 F 10/28/20 07:34 Pulse 92 10/28/20 08:05 Resp 16 10/28/20 07:34 BP 114/73 10/28/20 07:34 Pulse Ox 96 10/28/20 07:34 Intake & Output 10/27/20 10/28/20 10/28/20 18:59 06:59 18:59 Other: Voiding Method Toilet Toilet - Labs CBC & Chem 7: 10/28/20 06:15 10/28/20 06:15 Labs: Abnormal Lab Results - Last 24 Hours (Table) 10/27/20 10/27/20 Range/Units 06:12 06:12 WBC 11.64 H (4.50-10.00) X 10*3/uL Hgb 11.8 L (12.0-15.0) g/dL Hct 36.0 L (37.2-46.3) % Immature Gran # 0.34 H (0.00-0.04) X 10*3/uL Neutrophils # 10.13 H (1.80-7.70) X 10*3/uL Eosinophils # 0 L (0.04-0.35) X 10*3/uL Anion Gap 12.40 H (4.00-12.00) mmol/L BUN 8.0 L (9.0-27.0) mg/dL Creatinine 0.5 L (0.6-1.5) mg/dL Glucose 172 H (70-110) mg/dL Microbiology - Last 24 Hours (Table) 10/25/20 08:30 Urine Culture - Final Urine,Clean Catch Enterococcus faecium 10/25/20 09:44 Blood Culture - Preliminary Blood No Growth after 48 hours
--- NOTE | 2020-10-28 15:22 | P.PN ---
Subjective Progress Note Date: 10/28/20 CHIEF COMPLAINT: Diverticulitis HISTORY OF PRESENT ILLNESS: The patient is a 59-year-old female with d iverticulitis status post colostomy reversal. She is pending bronch for tomorrow. She reports so much flatus from yesterday to today. She is hungry for advancement of her diet. ROS: No reports of nausea and vomiting. No fevers or chills. No productive sputum PHYSICAL EXAM: VITAL SIGNS: Reviewed CONSTITUTIONAL: Well developed and in no acute distress. EYES: Conjuctivae without sclera icterus. Extraocular movements grossly intact. HEAD, EARS, NOSE, THROAT: Moist buccal mucosa. Head is atraumatic, normocephalic. Hears conversational speech. No nasal drainage. NECK: Supple. No thyroidomegaly. RESPIRATORY: Non-labored respirations and equal bilateral excursions. CARDIOVASCULAR: Palpable 2+ radial pulses. ABDOMEN: No peritonitis. Dressing intact. MUSCULOSKELETAL: No gross deformity of the lower extremities noted. No clubbing. No cyanosis. SKIN: Good skin turgor. Well perfused. NEUROLOGIC: Cranial nerves II through XII grossly intact. No focal or lateralizing signs. PSYCH: Appropriate affect. Alert and oriented to person, place and time. STUDIES: Reviewed. Echo report demonstrating ejection fraction over 55-60%. Moderate left ventricular concentric hypertrophy identified. CHEST-XRAY: Report reviewed demonstrating extensive emphysematous changes. CLINICAL LABS: Reviewed. WBC trending upward, over 17,000. ASSESSMENT: 1. Diverticulitis 2. Status post colostomy reversal PLAN: 1. Advance to low fiber diet 2. Bronchoscopy for tomorrow per pulmonary Objective - Vital Signs Vital signs: Vital Signs Temp 98.4 F 10/28/20 07:34 Pulse 96 10/28/20 11:15 Resp 16 10/28/20 07:34 BP 114/73 10/28/20 07:34 Pulse Ox 96 10/28/20 07:34 Intake & Output 10/27/20 10/28/20 10/28/20 18:59 06:59 18:59 Other: Voiding Method Toilet Toilet Toilet - Labs CBC & Chem 7: 10/28/20 06:15 10/28/20 06:15 Labs: Abnormal Lab Results - Last 24 Hours (Table) 05/23/21 05/23/21 Range/Units 06:15 06:15 WBC 17.91 H (4.50-10.00) X 10*3/uL RBC 3.84 L (4.10-5.20) X 10*6/uL Hgb 10.9 L (12.0-15.0) g/dL Hct 33.7 L (37.2-46.3) % Creatinine 0.5 L (0.6-1.5) mg/dL Calcium 8.0 L (8.7-10.3) mg/dL Alkaline Phosphatase 137 H (41-126) U/L Total Protein 5.2 L (6.2-8.2) g/dL Albumin 2.90 L (3.80-4.90) g/dL Albumin/Globulin Ratio 1.26 L (1.60-3.17) g/dL Microbiology - Last 24 Hours (Table) 10/25/20 09:44 Blood Culture - Preliminary Blood No Growth after 72 hours 10/25/20 08:30 Urine Culture - Final Urine,Clean Catch Enterococcus faecium Assessment and Plan (1) History of colostomy reversal Current Visit: Yes Status: Acute Code(s): Z98.890 - OTHER SPECIFIED POSTPROCEDURAL STATES SNOMED Code(s): 130972290 (2) Diverticulitis of large intestine with perforation Current Visit: Yes Status: Acute Code(s): K57.20 - DVTRCLI OF LG INT W PERFORATION AND ABSCESS W/O BLEEDING SNOMED Code(s): 5514574 (3) Colostomy status Current Visit: No Status: Acute Code(s): Z93.3 - COLOSTOMY STATUS SNOMED Code(s): 207521726
[2020-10-28] MEDS: ALPRAZolam 0.5 MG TAB PO PRN (21:59)
[2020-10-29] MEDS: METOCLOPRAMIDE 5 MG/ML 2 ML VIAL IVP SCH ×4 (00:56→16:52)
[2020-10-29] MEDS: PIPERACILLIN-TAZOBACTAM 3.375 GM in SODIUM CHLORIDE 0.9% 100 ML IVPB SCH ×3 (00:56→15:54)
[2020-10-29] MEDS: HEPARIN SODIUM,PORCINE/PF 5,000 UNIT/0.5 ML SYRINGE SQ SCH ×3 (00:57→15:54)
[2020-10-29] MEDS: VANCOMYCIN 1,250 MG in SODIUM CHLORIDE 0.9% 250 ML IVPB SCH ×3 (03:25→19:52)
[2020-10-29] MEDS: amLODIPine 5 MG TAB PO SCH (07:20)
[2020-10-29] MEDS: NYSTATIN 100,000 UNIT/ML SUSP 500,000 UNIT/5 ML CUP PO SCH ×4 (07:20→19:52)
[2020-10-29] MEDS: PANTOPRAZOLE 40 MG/10 ML VIAL IVP SCH ×2 (07:21→19:52)
[2020-10-29] MEDS: SODIUM CHLORIDE 0.9% 1,000 ML IV SCH ×2 (07:22→19:53)
[2020-10-29] MEDS: IPRATROPIUM-ALBUTEROL 3 ML NEB INHALATION SCH ×4 (08:07→19:37)
[2020-10-29] MEDS: BUDESONIDE 0.5 MG/2 ML NEBU INHALATION SCH ×2 (08:07→19:37)
--- NOTE | 2020-10-29 10:42 | P.PN ---
Subjective Progress Note Date: 10/29/20 HISTORY OF PRESENT ILLNESS This is a 59-year-old female patient of Dr. Cisneros with past medical history significant for hypertension and hypertensive cardiovascular di sease with left ventricular hypertrophy, osteoarthritis, gastroesophageal reflux disease, diverticulosis, rheumatoid arthritis diagnosed in 2005 on Enbrel and followed by Dr. Goldman. Patient was hospitalized July 03 to July 05 for sepsis related to facial cellulitis and an immunocompromised host. Thereafter, she had some abdominal pain, for which CAT scan was concerning for perforated sigmoid diverticula, requiring exploratory appendectomy and sigmoid colectomy and end colostomy, 07/08/2020. She now comes in for colostomy reversal, for which Dr. Lebron has performed these on 10/19/2020. Patient has an epidural pain pump, however she is complaining of significant abdominal pain with abdominal distention, no nausea however she is up scopolamine patch, she has uncontrolled pain, no flatus, patient currently is nothing by mouth except medications. Patient denies any fever or chills or shortness of breath no chest pain, no cough, however patient's fearful of getting any nausea vomiting, acid technically hurts even more. She does have ALLERGIES to hydrocodone, oxycodone, hydromorphone, plan for pain management would be tramadol, and the current epidural pain pump. 10/21: Patient evaluated, laying comfortably in the bed. Patient reports she's had a few bouts of diarrhea, she denies any nausea or vomiting. She is tolerating ice chips and popsicles. Her abdomen is soft, nondistended, dressing is clean dry and intact, she has good bowel sounds. Laboratory values showed WB C 14.6, hemoglobin 14.2, sodium 141, potassium 5.3, BUN 9, creatinine 0.7. Vital signs are stable temperature of 98.3, heart rate 94, respiratory rate of 17, blood pressure 113/71, pulse ox 90% on room air. Incentive spirometer at bedside encouraged its use. 10/22: She states that she has been on long-term Protonix and wishes for this to be resumed and Pepcid discontinued which appears to have been done by general surgery. Patient is anxious to start eating. She states she is burping and pas sing flatulence along with diarrhea. She has tenderness to the bilateral lower quadrants. Blood pressure has been elevated but patient states that all the readings are done after she has an emesis. Epidural has been removed. Anticipate Harris catheter to be removed today. Bicarb added to IV fluids. 10/23: Patient pulse ox continues to run on the low side 88-91% on room air. Patient states she had low pulse ox following her previous surgery. She denies feeling short of breath, no cough, no sputum production. She is only reaching 500 on incentive spirometry but at home prior to surgery, patient was reaching 3000. She has been afebrile, temperature max 99.7, heart rate 119, blood pressu re 129/82. Chest x-ray reveals patchy left greater than right bibasilar atelectasis and/or developing infiltrate. Patient started on ceftriaxone for possible early pneumonia. Repeat blood work reveals WBC 12.7, hemoglobin 12.6, platelet count 258. Patient is currently on clear liquid diet and tolerating. Harris catheter was removed yesterday and patient is voiding on her own. 10/24: Patient pulse ox remains low between 90 and 93% on oxygen. She is on 2-3 L. Nursing to do a home oxygen assessment for her. She does complain of shortness of breath with ambulation. She ambulated in the hallway yesterday and could not go very far past her room. She is reaching 1500 ML's on incentive spirometry. CTA of the chest ordered that found no evidence of pulmonary embolism. She is feeling better today in general. Bicarb drip will be discontinued. She continues to have abdominal bloating. She is on a full liquid diet that was started yesterday. She denies nausea vomiting. Repeat blood work reveals potassium 2.7 which will be replaced. Sodium 133, chloride 95, CO2 31, creatinine 0.61. WBC 12.1, hemoglobin 11.9, platelet count 264. 10/25: Patient had temperature of 100.7 yesterday afternoon, antibiotics changed to Zosyn. Urinalysis and blood cultures ordered. Yesterday, patient underwent CTA of the chest which revealed no pulmonary embolism. Coronary artery disease. Basilar atelectasis and emphysema. Patient encouraged to continue incentive spirometry and increase activity. She does complain of continued bloating and has not passed gas today. Heart rate 101, respiratory rate 18, blood pressure 123/73, pulse ox 88% on 3 L nasal cannula. Repeat blood work reveals WBC 10.2, hemoglobin 11.1, platelet count 242. Chemistry is pending. Repeat blood work ordered for tomorrow. 10/26: Pulse ox is morning is 91% on 5 L. She's been afebrile, heart rate 96, blood pressure 139/82. Temperature max was 100.5 at 2 AM. Coronavirus PCR was repeated yesterday which came back not detected. Urine culture from October 25 in process. Patient underwent CAT scan of the abdomen and pelvis revealed changes of colostomy reversal. Appropriate filling of colon without evidence of leak or obstruction. No evidence of abscess or free air. Findings suggest postoperative ileus. Surgery has changed diet to nothing by mouth except for ice chips medications popsicles and gum and added Reglan. Option of NG tube was offered to the patient but she declined at this time. Patient does complain of cough. We'll plan to add in consult with Dr. Kelly. 10/27: Patient has been seen by Dr. Kelly and ruled in for pneumonia. She is continued on Zosyn and he has added in vancomycin. Patient is reaching between 1015 100 on incentive spirometry. She still has shortness of breath with ambula ting. She is currently pulse ox 88% on 2 L nasal cannula. She's been afebrile, heart rate 100, blood pressure 161/93. Repeat blood work reveals WBC 11.6, hemoglobin 11.8, platelet count 355. Electrolytes are normal with BUN of 8 and creatinine 0.5. Blood sugar 172. Patient's still has mild bloating, she is passing stools. JOSHUA cortez, echocardiogram and repeat chest x-ray ordered for today. 10/28: Pulse ox during the night was 89% on 3 L this morning, 96 on 3 L. She's been afebrile, heart rate 96, blood pressure 114/73. Urine culture came back positive for enterococcus. Dr. Kelly is planning on bronchoscopy for tomorrow. Patient continues to have dyspnea especially with activity. She states she has not had a bowel movement was Seen a lot of gas last evening. She is reaching 750-1000 on incentive spirometry. Chest x-ray reveals chronic emphysematous change with small to tiny pleural effusions and lateral left basilar linear atelectasis. Echocardiogram reveals EF of 55-60% with moderate concentric left ventricular hypertrophy, mild mitral regurgitation, mild tricuspid regurgitation. 10/29: Patient states that her diet was advanced last evening which she really appreciated and she is now nothing by mouth waiting for bronchoscopy. She's been afebrile, heart rate 96, blood pressure 166/72, pulse ox 92% on 4 L nasal cannula. Plan to continue to monitor patient closely, possible discharge home by Thursday. REVIEW OF SYSTEMS Constitutional: No fever, no chills, no night sweats. No weight change. No weakness, fatigue or lethargy. No daytime sleepiness. EENT: No headache. No blurred vision or double vision, no loss of vision. No loss of Hearing, no ringing in the ears, no dizziness. No nasal drainage or congestion. No epistaxis. No sore throat. Lungs: Reports continued shortness of breath, reports cough, no sputum production. No wheezing. Reports shortness of breath with activity. Cardiovascular: No chest pain, no lower extremity edema. No palpitations. No paroxysmal nocturnal dyspnea. No orthopnea. No lightheadedness or dizziness. No syncopal episodes. Abdominal: Reports abdominal pain. Reports abdominal bloating. No nausea, vomiting. No diarrhea. Denies constipation. No bloody or tarry stools denies loss of appetite. Genitourinary: No dysuria, increased frequency, urgency. No urinary retention. Musculoskeletal: No myalgias. No muscle weakness, no gait dysfunction, no frequent falls. No back pain. No neck pain. Integumentary: No wounds, no lesions. No rash or pruritus. No unusual bruising. Neurologic: No aphasia. No facial droop. No change in mentation. No head injury. No headache. No paralysis. No paresthesia. Psychiatric: No depression. No anxiety. Endocrine: No abnormal blood sugars. PHYSICAL EXAMINATION Gen: This is a 59-year-old female. Patient is resting in bed and appears to be comfortable and in no acute distress. HEENT: Head is atraumatic, normocephalic. Pupils equal, round. Sclerae is anicteric. NECK: Supple. No JVD. No lymphadenopathy. No thyromegaly. LUNGS: Diminished to the bilateral bases No intercostal retractions. Patient appears to be comfortable at rest. No accessory muscle usage. HEART: Regular rate and rhythm. No murmur. ABDOMEN: Mild distention, Soft. Bowel sounds are present. No masses. No tenderness. Dressing clean dry and intact. EXTREMITIES: No pedal edema. No calf tenderness. Dorsalis pedis palpable bilaterally. NEUROLOGICAL: Patient is awake, alert and oriented x3. Cranial nerves 2 through 12 are grossly intact. ASSESSMENT AND PLAN 1. Colostomy reversal 10/19/2020 with prior history of pneumoperitoneum on from perforated diverticulitis in July 08, requiring sigmoid colectomy and end colostomy. Continue Cepacol, dextrose normal saline with sodium bicarb at 125 mL per hour, Reglan 10 mg IV push every 6 hours as needed, Zofran as needed for nausea, scopolamine patch as needed, tramadol for pain. Diet per general surgery 2. Postop ileus. Clear liquid diet, Reglan was added. 3. Hypertension, hypertensive cardiovascular disease. Continue hydralazine 10 mg IV push every 6 hours as needed for systolic blood pressure greater than 160. Continue Norvasc 5 mg daily. 4. Rheumatoid arthritis under the care of Dr. Goldman. Enbrel and prednisone on hold. 5. Gastroesophageal reflux disease. Continue Pepcid 20 twice a day. 6. Generalized osteoarthritis, stable. 7. 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 Chronic immunosuppressed patient, secondary to Enbrel monitor for wound healing process and nutrition 9. Acute hypoxic respiratory failure requiring oxygen therapy most likely secondary to atelectasis and pneumonia. Continue Zosyn, vancomycin added, continue Pulmicort 0.5 mg twice daily and nebulizer treatment as needed. Consult added for Dr. Kelly from pulmonary medicine appreciated. Bronchoscopy scheduled for today with Dr. Kelly. 10. DVT prophylaxis heparin subcu 11. COVID-19 testing negative. Patient has been hospitalized during a pandemic. DISCHARGE PLAN home. Impression and plan of care have been directed as dictated by the signing physic ian. Renita Ornelas nurse practitioner acting as scribe for signing physician. Objective - Vital Signs Vital signs: Vital Signs Temp 98.4 F 10/29/20 07:21 Pulse 97 10/29/20 08:24 Resp 18 10/29/20 07:21 BP 166/72 10/29/20 07:21 Pulse Ox 92 L 10/29/20 07:21 Intake & Output 10/28/20 10/29/20 10/29/20 18:59 06:59 18:59 Other: Voiding Method Toilet Toilet Toilet - Labs CBC & Chem 7: 10/28/20 06:15 10/28/20 06:15 Labs: Abnormal Lab Results - Last 24 Hours (Table) 10/28/20 10/28/20 Range/Units 06:15 06:15 WBC 17.91 H (4.50-10.00) X 10*3/uL RBC 3.84 L (4.10-5.20) X 10*6/uL Hgb 10.9 L (12.0-15.0) g/dL Hct 33.7 L (37.2-46.3) % Creatinine 0.5 L (0.6-1.5) mg/dL Calcium 8.0 L (8.7-10.3) mg/dL Alkaline Phosphatase 137 H (41-126) U/L Total Protein 5.2 L (6.2-8.2) g/dL Albumin 2.90 L (3.80-4.90) g/dL Albumin/Globulin Ratio 1.26 L (1.60-3.17) g/dL Microbiology - Last 24 Hours (Table) 10/25/20 09:44 Blood Culture - Preliminary Blood No Growth after 72 hours
--- NOTE | 2020-10-29 11:16 | P.PN ---
<Alexandria Harley - Last Filed: 10/29/20 11:03> Subjective Progress Note Date: 10/29/20 CHIEF COMPLAINT: Perforated diverticulitis Diverticulitis HISTORY OF PRESENT ILLNESS: Status post colostomy reversal, mobilization of splenic flexure. Postop day #10. Patient is remained short of breath, requiring oxygen and evidence of pneumonia. She is scheduled for bronchoscopy today with Dr. Hernandez. Patient is complaining of tender lower abdominal cramping at the end of urinating. She denies any burning with urination, frequency or urgency. She feels she is emptying her bladder fully. She is having bowel movements. She reports that she is passing gas. Her stool has been liquidy. She did have a very small solid stool. She denies any nausea or vomiting. She does have drainage at the incision with erythema below the umbilicus. She had been on a low fiber diet. Afebrile. CBC is pending. She is currently off of her IV steroids. PHYSICAL EXAM: VITAL SIGNS: Reviewed. GENERAL: Well-developed in no acute distress. HEENT: No sclera icterus. Extraocular movements grossly intact. Moist buccal mucosa. Head is atraumatic, normocephalic. ABDOMEN: Soft. mildly distended. Tenderness to palpation in the suprapubic area. Patient's incision sites below the umbilicus some mild evidence of erythema and serosanguineous drainage noted. NEUROLOGIC: Alert and oriented. Cranial nerves II through XII grossly intact. ASSESSMENT: 1. Perforated diverticulitis status post colostomy reversal, mobilization of splenic flexure 2. Expected postoperative ileus 3. Acute hypoxic respiratory failure secondary to pneumonia and atelectasis PLAN: -Currently nothing by mouth for bronchoscopy -Check urinalysis with culture -Check CBC -Continue antibiotics -Continue pain medication as needed -Encourage patient to use incentive spirometer -Encourage patient to increase activity -GI prophylaxis Protonix and DVT prophylaxis subcu heparin Physician Ecclesiastical Worker note has been reviewed by physician. Signing provider agrees with the documented findings, assessment, and plan of care. Objective - Vital Signs Vital signs: Vital Signs Temp 98.4 F 10/29/20 07:21 Pulse 97 10/29/20 08:24 Resp 18 10/29/20 07:21 BP 166/72 10/29/20 07:21 Pulse Ox 92 L 10/29/20 07:21 Intake & Output 10/28/20 10/29/20 10/29/20 18:59 06:59 18:59 Other: Voiding Method Toilet Toilet Toilet - Labs CBC & Chem 7: 10/28/20 06:15 10/28/20 06:15 Labs: Microbiology - Last 24 Hours (Table) 10/25/20 09:44 Blood Culture - Preliminary Blood No Growth after 72 hours <Milind Lebron - Last Filed: 10/29/20 15:52> Subjective As above. Patient says her pain is absent unless she is having bowel movements or urination. Overall compared to Thursday she says her abdominal issues are definitely improved. Patient has had intermittent tachycardia and persistent hypoxemia. Patient having bronchoscopy today. Patient is hungry. No nausea or vomiting. Having bowel function both loose and solid. Small area beneath umbilicus of cloudy serous drainage. 3 pj removed. Wound was open and packed. Begin local wound care to that area. Objective - Vital Signs Vital signs: Vital Signs Temp 98.2 F 10/29/20 13:41 Pulse 111 H 10/29/20 13:41 Resp 19 10/29/20 13:41 BP 150/87 10/29/20 13:41 Pulse Ox 92 L 10/29/20 13:41 Intake & Output 10/28/20 10/29/20 10/29/20 18:59 06:59 18:59 Intake Total 200 Balance 200 Weight 77.2 kg Intake: IV 200 Other: Voiding Method Toilet Toilet Toilet - Labs CBC & Chem 7: 10/29/20 07:37 10/28/20 06:15 Labs: Abnormal Lab Results - Last 24 Hours (Table) 10/29/20 Range/Units 07:37 WBC 12.9 H (3.8-10.6) k/uL Neutrophils # 9.9 H (1.3-7.7) k/uL Microbiology - Last 24 Hours (Table) 10/25/20 09:44 Blood Culture - Preliminary Blood No Growth after 96 hours Assessment and Plan (1) Perforated diverticulum of large intestine Current Visit: No Status: Acute Code(s): K57.20 - DVTRCLI OF LG INT W PERFORATION AND ABSCESS W/O BLEEDING SNOMED Code(s): 456748051
--- NOTE | 2020-10-29 11:16 | P.PN ---
Subjective Progress Note Date: 10/29/20 Principal diagnosis: Bilateral basal pneumonia left more than right, patient has been adequately covered with Zosyn however given history of MRSA in mouth we will add IV vancomycin as well pending his sputum studies Acute hypoxic respiratory failure Immunosuppressed status Status post reversal of colostomy Electrolyte imbalance with hypokalemia Advanced rheumatoid arthritis Hypertension hypertensive cardiovascular disease Baseline COPD 10/29/2020, patient seen eval examined, nonexertional shortness of breath present, was not able to find the maximal respiratory pressures, assess. Noted again, patient remains on vancomycin and Zosyn, patient scheduled for bronchosc opy later on today, noted that patient is on 4 L oxygen now 10/28/2020, patient seen eval examined during the rounds labs reviewed medications reviewed and still have shortness of breath activity and exertion, patient is scheduled for bronchoscopy for tomorrow to be nothing by mouth after midnight procedure have been explained to the patient, currently on Vanco and Zosyn sputum studies are pending 10/27/2020, patient seen eval examined during the rounds labs reviewed medications reviewed care plan discussed, respiratory status remains stable denies any chest pain but however get short of breath on minimal activity and exertion, remains on supplemental oxygen ongoing cough is present, cooperative provider for sputum Gram stain and culture, patient updated about computed tomography scan finding, remains afebrile hemodynamically stable saturation is 91% 3 L oxygen, labs reviewed white cell count 11,600, I have discussed with her about bronchoscopy and buttock bronchoalveolar lavage early next week Patient is a pleasant 59-year-old female with extensive history of smoking and nicotine use, patient is status post Trang procedure in June for perforated sigmoid diverticulitis admitted for colostomy reversal, performed successfully on 10/19/2020, patient 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, patient has ongoing shortness of breath which is more pronounced and active during activity and exertion, patient has been on 3 to 5 L nasal cannula L nasal cannula oxygen now lately have been tapered down to 2 L oxygen saturation is 90%, patient has been slightly tachypneic with respiratory rate in high teens and heart rate sinus tachycardia 100 tp 110, chest x-ray performed on October 22 patchy bilateral basal infiltrate more so on the right side compared to left side developing pneumonia cannot be excluded, CAT scan revealed by basilar infiltrate with air bronchogram with emphysema in the upper lobes, no obvious pulmonary embolism seen in the central vasculature, patient white cell count is up to 13,500, labs significant for sodium was 138 potassium 3.4, cold with 19 p neumonia PCR is negative, patient currently on D.O. nab unit dose 4 times a day, also on her antihypertensive agents, DVT prophylaxis, Solu-Medrol 60 mg IV every 6 hourly with Zosyn 3.375 every 8 hourly past medical history significant for GERD hypertension hypertensive cardiovascular disease rheumatoid arthritis and diverticulosis, also had the MRSA infection in cheek area with abscess in June 2020, patient used to smoke heavily about 1 pack per day for 30 years quit about 8 years ago, patient has been getting infusion with Enbrel for rheumatoid arthritis once a week Objective - Vital Signs Vital signs: Vital Signs Temp 98.4 F 10/29/20 07:21 Pulse 97 10/29/20 08:24 Resp 18 10/29/20 07:21 BP 166/72 10/29/20 07:21 Pulse Ox 92 L 10/29/20 07:21 Intake & Output 10/28/20 10/29/20 10/29/20 18:59 06:59 18:59 Other: Voiding Method Toilet Toilet Toilet - Exam - Constitutional General appearance: average body habitus, cooperative, disheveled - EENT Eyes: PERRLA ENT: hearing grossly normal Ears: bilateral: normal - Neck Neck: normal ROM Carotids: bilateral: upstroke normal Thyroid: bilateral: normal size - Respiratory Respiratory: bilateral: rales (Bilateral basal area with bronchial breath sound more so on the left side compared right side), prolonged expiration - Cardiovascular Rhythm: regular Heart sounds: normal: S1, S2 - Gastrointestinal Surgical incision and the scar is stable healing nicely General gastrointestinal: decreased bowel sounds, soft - Integumentary Integumentary: normal turgor - Neurologic Neurologic: CNII-XII intact - Musculoskeletal Musculoskeletal: gait normal, generalized weakness, strength equal bilaterally - Psychiatric Psychiatric: A&O x's 3, appropriate affect, intact judgment & insight - Labs CBC & Chem 7: 10/28/20 06:15 10/28/20 06:15 Labs: Microbiology - Last 24 Hours (Table) 10/25/20 09:44 Blood Culture - Preliminary Blood No Growth after 72 hours Assessment and Plan Assessment: Bilateral basal pneumonia left more than right, patient has been adequately covered with Zosyn however given history of MRSA in mouth we will add IV vancomycin as well pending his sputum studies Acute hypoxic respiratory failure Immunosuppressed status Status post reversal of colostomy Electrolyte imbalance with hypokalemia Advanced rheumatoid arthritis Hypertension hypertensive cardiovascular disease Baseline COPD Plan: Bronchoscopy and bronchoalveolar lavage scheduled later on today Continue Zosyn and and IV vancomycin Recommend deep breathing exercises incentive spirometry Follow-up on sputum studies Further plan of care as per clinical response of the patient
[2020-10-29 11:38] LABS: Basophils % (A) 0 %; Eosinophils # (A) 0.1 k/uL (0-0.7); Eosinophils % (A) 1 %; HCT 36.2 % (34.0-46.0); HGB 11.9 gm/dL (11.4-16.0); Lymphocytes # (A) 2.3 k/uL (1.0-4.8); Lymphocytes % (A) 18 %; MCH 29.4 pg (25.0-35.0); MCV 89.2 fL (80.0-100.0); Mean Platelet Volume 7.4; Monocytes # (A) 0.5 k/uL (0-1.0); Monocytes % (A) 4 %; Neutrophils # (A) 9.9 k/uL (1.3-7.7); Neutrophils % (A) 76 %; Platelet Count 430 k/uL (150-450); RBC 4.06 m/uL (3.80-5.40); RDW 13.6 % (11.5-15.5); WBC 12.9 k/uL (3.8-10.6)
[2020-10-29 12:16] LABS: Appearance,Urine Clear (Clear); Bilirubin,Urine Negative (Negative); Blood,Urine Negative (Negative); Color,Urine Colorless; Glucose,Urine (UA) Negative (Negative); Ketones,Urine Negative (Negative); Leukocyte Esterase,Urine Negative (Negative); Nitrite,Urine Negative (Negative); PH, Urine 7.5 (5.0-8.0); Protein,Urine Negative (Negative); Specific Gravity,Urine 1.006 (1.001-1.035); Urobilinogen,Urine <2.0 mg/dL (<2.0)
[2020-10-29] MEDS ORDERED: LIDOCAINE 1% INJ 10MG/ML (20 ML MDV) ONE (14:36)
[2020-10-29] MEDS ORDERED: fentaNYL (PF) 50 MCG/ML 2 ML AMP ONE (14:36)
[2020-10-29] MEDS ORDERED: KETAMINE 10 MG/ML 20 ML VIAL ONE (14:36)
[2020-10-29] MEDS ORDERED: MIDAZOLAM 2 MG/2 ML VIAL ONE (14:36)
[2020-10-29] MEDS ORDERED: PROPOFOL 10 MG/ML 20 ML VIAL IV ONE (14:36)
[2020-10-29] MEDS ORDERED: LIDOCAINE 2% INJ 20 MG/ML INTRATRACH ONE (14:55)
[2020-10-29] MEDS ORDERED: IV FLUID CONTINUATION 300 ML IV ONE (15:06)
--- NOTE | 2020-10-29 15:11 | P.PCN ---
Date of Procedure: 10/29/20 Preoperative Diagnosis: Bilateral lower lobe pneumonia, acute hypoxic respiratory failure Postoperative Diagnosis: As above Procedure(s) Performed: #1 bronchoscopy #2 bronchoalveolar lavage of right lower lobe and left lower lobe Anesthesia: MAC Surgeon: William Ali Condition: stable Disposition: floor Indications for Procedure: As above Operative Findings: As below Description of Procedure: Patient prepared and draped in the usual fashion informed consent obtained, fiberoptic bronchoscope was passed through the left nares, old crusted blood was noted in the nares, tip of the scope was advanced into the laryngeal area vocal cords were normal structure and function, able score spelled beyond the cords into the trachea which was normal in appearance right upper lobe middle lobe and lower lobe inspected, no endobronchial mass lesion identified some mucous plugs were noted at the bilateral lower dissection plane, the fiberoptic bronchoscope was as on the left side, left upper lobe and lingula lobe within normal limits, his mucosa erythematous edema and swelling was present in the left lower lobe with mucus plugging which were suctioned and cleaned, the left lower lobe bronchus appears to be very collapsible patient tolerated procedure well no complication noted
[2020-10-29] MEDS: ALPRAZolam 0.5 MG TAB PO PRN (21:56)
[2020-10-29] MEDS: traMADol 50 MG TAB PO PRN (21:56)
[2020-10-30] MEDS: METOCLOPRAMIDE 5 MG/ML 2 ML VIAL IVP SCH ×4 (00:32→17:19)
[2020-10-30] MEDS: PIPERACILLIN-TAZOBACTAM 3.375 GM in SODIUM CHLORIDE 0.9% 100 ML IVPB SCH ×3 (00:32→14:09)
[2020-10-30] MEDS: HEPARIN SODIUM,PORCINE/PF 5,000 UNIT/0.5 ML SYRINGE SQ SCH ×3 (00:32→17:18)
[2020-10-30] MEDS: VANCOMYCIN 1,250 MG in SODIUM CHLORIDE 0.9% 250 ML IVPB SCH ×3 (03:39→19:59)
[2020-10-30] MEDS: traMADol 50 MG TAB PO PRN ×2 (03:43→22:24)
[2020-10-30] MEDS: ALPRAZolam 0.5 MG TAB PO PRN ×2 (03:44→22:25)
[2020-10-30] MEDS: PANTOPRAZOLE 40 MG/10 ML VIAL IVP SCH (07:48)
[2020-10-30] MEDS: SODIUM CHLORIDE 0.9% 1,000 ML IV SCH ×2 (07:48→23:27)
[2020-10-30] MEDS: amLODIPine 5 MG TAB PO SCH (07:48)
[2020-10-30] MEDS: NYSTATIN 100,000 UNIT/ML SUSP 500,000 UNIT/5 ML CUP PO SCH ×4 (07:48→23:26)
[2020-10-30] MEDS: IPRATROPIUM-ALBUTEROL 3 ML NEB INHALATION SCH ×4 (09:14→20:03)
[2020-10-30] MEDS: BUDESONIDE 0.5 MG/2 ML NEBU INHALATION SCH ×2 (09:15→20:03)
[2020-10-30] MEDS ORDERED: VANCOMYCIN TROUGH DUE 1 EACH MISC MISCELLANE ONE (10:00)
--- NOTE | 2020-10-30 10:27 | P.PN ---
Subjective Progress Note Date: 10/30/20 Principal diagnosis: Bilateral basal pneumonia left more than right, patient has been adequately covered with Zosyn however given history of MRSA in mouth we will add IV vancomycin as well pending his sputum studies Acute hypoxic respiratory failure Immunosuppressed status Status post reversal of colostomy Electrolyte imbalance with hypokalemia Advanced rheumatoid arthritis Hypertension hypertensive cardiovascular disease Baseline COPD Oct 30 2020, patient seen eval examined during the rounds labs reviewed medications reviewed care plan discussed with the primary service at length, status post a bronchoscopy, patient updated about bronchoscopy finding, patient is feeling slightly better able to say. Sentences however remains on 4 L oxygen, patient remains on IV vancomycin and Zosyn, Gram stain on BAL positive for gram-positive cocci 10/29/2020, patient seen eval examined, nonexertional shortness of breath present, was not able to find the maximal respiratory pressures, assess. Noted again, patient remains on vancomycin and Zosyn, patient scheduled for br onchoscopy later on today, noted that patient is on 4 L oxygen now 10/28/2020, patient seen eval examined during the rounds labs reviewed medications reviewed and still have shortness of breath activity and exertion, patient is scheduled for bronchoscopy for tomorrow to be nothing by mouth after midnight procedure have been explained to the patient, currently on Vanco and Zosyn sputum studies are pending 10/27/2020, patient seen eval examined during the rounds labs reviewed medications reviewed care plan discussed, respiratory status remains stable denies any chest pain but however get short of breath on minimal activity and exertion, remains on supplemental oxygen ongoing cough is present, cooperative provider for sputum Gram stain and culture, patient updated about computed tomography scan finding, remains afebrile hemodynamically stable saturation is 91% 3 L oxygen, labs reviewed white cell count 11,600, I have discussed with her about bronchoscopy and buttock bronchoalveolar lavage early next week Patient is a pleasant 59-year-old female with extensive history of smoking and n icotine use, patient is status post Trang procedure in June for perforated sigmoid diverticulitis admitted for colostomy reversal, performed successfully on 10/19/2020, patient initially was on epidural pain [employer] analgesia, patient has ongoing shortness of breath which is more pronounced and active during activity and exertion, patient has been on 3 to 5 L nasal cannula L nasal cannula oxygen now lately have been tapered down to 2 L oxygen saturation is 90%, patient has been slightly tachypneic with respiratory rate in high teens and heart rate sinus tachycardia 100 tp 110, chest x-ray performed on October 22 patchy bilateral basal infiltrate more so on the right side compared to left side developing pneumonia cannot be excluded, CAT scan revealed by basilar infiltrate with air bronchogram with emphysema in the upper lobes, no obvious pulmonary embolism seen in the central vasculature, patient white cell count is up to 13,500, labs significant for sodium was 138 potassium 3.4, cold with 19 pneumonia PCR is negative, patient currently on D.O. nab unit dose 4 times a day, also on her antihypertensive agents, DVT prophylaxis, Solu-Medrol 60 mg IV every 6 hourly with Zosyn 3.375 every 8 hourly past medical history significant for GERD hypertension hypertensive cardiovascular disease rheumatoid arthritis and diverticulosis, also had the MRSA infection in cheek area with abscess in June 2020, patient used to smoke heavily about 1 pack per day for 30 years quit about 8 years ago, patient has been getting infusion with Enbrel for rheumatoid arthritis once a week Objective - Vital Signs Vital signs: Vital Signs Temp 98.4 F 10/30/20 08:00 Pulse 92 10/30/20 09:30 Resp 18 10/30/20 08:15 BP 130/77 10/30/20 08:00 Pulse Ox 93 L 10/30/20 08:00 Intake & Output 10/29/20 10/30/20 10/30/20 18:59 06:59 18:59 Intake Total 200 236 Balance 200 236 Weight 77.2 kg Intake: IV 200 Oral 236 Other: Voiding Method Toilet Toilet Toilet # Voids 1 - Exam - Constitutional General appearance: average body habitus, cooperative, disheveled - EENT Eyes: PERRLA ENT: hearing grossly normal Ears: bilateral: normal - Neck Neck: normal ROM Carotids: bilateral: upstroke normal Thyroid: bilateral: normal size - Respiratory Respiratory: bilateral: rales (Bilateral basal area with bronchial breath sound more so on the left side compared right side), prolonged expiration - Cardiovascular Rhythm: regular Heart sounds: normal: S1, S2 - Gastrointestinal Surgical incision and the scar is stable healing nicely General gastrointestinal: decreased bowel sounds, soft - Integumentary Integumentary: normal turgor - Neurologic Neurologic: CNII-XII intact - Musculoskeletal Musculoskeletal: gait normal, generalized weakness, strength equal bilaterally - Psychiatric Psychiatric: A&O x's 3, appropriate affect, intact judgment & insight - Labs CBC & Chem 7: 10/29/20 07:37 10/28/20 06:15 Labs: Abnormal Lab Results - Last 24 Hours (Table) 10/29/20 Range/Units 07:37 WBC 12.9 H (3.8-10.6) k/uL Neutrophils # 9.9 H (1.3-7.7) k/uL Microbiology - Last 24 Hours (Table) 10/29/20 14:30 Gram Stain - Preliminary Bronchoalviolar Lavage - Right Bronchial Washings Culture - Preliminary 10/29/20 14:30 Acid Fast Bacilli Culture - Preliminary Bronchoalviolar Lavage - Left 10/29/20 14:30 Fungal Culture - Preliminary Bronchoalviolar Lavage - Right 10/29/20 14:30 Legionella Culture - Preliminary Bronchial Washings - Left 10/25/20 09:44 Blood Culture - Preliminary Blood No Growth after 96 hours Assessment and Plan Assessment: Bilateral basal pneumonia left more than right, patient has been adequately covered with Zosyn however given history of MRSA in mouth we will continue IV vancomycin as well pending final ID of gram-positive cocci in the bronchoalveolar lavage Acute hypoxic respiratory failure Immunosuppressed status Status post reversal of colostomy Electrolyte imbalance with hypokalemia Advanced rheumatoid arthritis Hypertension hypertensive cardiovascular disease Baseline COPD Plan: Bronchoscopy and bronchoalveolar lavage reviewed and discussed with primary service as well as the patient at length Continue Zosyn and and IV vancomycin Recommend deep breathing exercises incentive spirometry Follow-up on bronchoalveolar lavage Continue deep breathing sense incentive spirometry Further plan of care as per clinical response of the patient Time with Patient: Greater than 30
[2020-10-30 10:39] LABS: African American GFR (CKD) >90 (>60 ml/min/1.73 sqM); Non-African American GFR(CKD) >90 (>60 ml/min/1.73 sqM)
--- NOTE | 2020-10-30 11:18 | P.PN ---
<Alexandria Harley - Last Filed: 10/30/20 11:11> Subjective Progress Note Date: 10/30/20 CHIEF COMPLAINT: Perforated diverticulitis Diverticulitis HISTORY OF PRESENT ILLNESS: Status post colostomy reversal, mobilization of splenic flexure. Postop day #11. Patient is status post bronchoscopy. She reports still having shortness of breath with ambulating. She complains of cough. She complains of lower achy abdominal pain. She is passing gas and having bowel movements. Her stools are more formed. She denies any nausea or vomiting. She is tolerating her low fiber diet. She ate eggs and parents for breakfast. Afebrile. Still requiring oxygen 4 L at 93%. She has had some tachycardia yesterday heart rate is now 91. She still has discomfort in the lower abdomen when she has a bowel movement or passes urine. Her urinalysis is negative. Afebrile. WBC 12.9 yesterday PHYSICAL EXAM: VITAL SIGNS: Reviewed. GENERAL: Well-developed in no acute distress. HEENT: No sclera icterus. Extraocular movements grossly intact. Moist buccal mucosa. Head is atraumatic, normocephalic. ABDOMEN: Soft. mildly distended. No tenderness with palpation of the abdomen. Incision area that is open decreased erythema. There is some serosanguineous drainage noted on the bandage. NEUROLOGIC: Alert and oriented. Cranial nerves II through XII grossly intact. ASSESSMENT: 1. Perforated diverticulitis status post colostomy reversal, mobilization of splenic flexure 2. Expected postoperative ileus 3. Acute hypoxic respiratory failure secondary to pneumonia and atelectasis PLAN: -Continue low fiber diet -Continue antibiotics -Continue pain medication as needed -Encourage patient to use incentive spirometer -Encourage patient to increase activity -GI prophylaxis Protonix and DVT prophylaxis subcu heparin Physician Rag Washer note has been reviewed by physician. Signing provider agrees with the documented findings, assessment, and plan of care. Objective - Vital Signs Vital signs: Vital Signs Temp 98.4 F 10/30/20 08:00 Pulse 92 10/30/20 09:30 Resp 18 10/30/20 08:15 BP 130/77 10/30/20 08:00 Pulse Ox 93 L 10/30/20 08:00 Intake & Output 10/29/20 10/30/20 10/30/20 18:59 06:59 18:59 Intake Total 200 236 Balance 200 236 Weight 77.2 kg Intake: IV 200 Oral 236 Other: Voiding Method Toilet Toilet Toilet # Voids 1 - Labs CBC & Chem 7: 10/29/20 07:37 10/30/20 09:58 Labs: Abnormal Lab Results - Last 24 Hours (Table) 10/29/20 Range/Units 07:37 WBC 12.9 H (3.8-10.6) k/uL Neutrophils # 9.9 H (1.3-7.7) k/uL Microbiology - Last 24 Hours (Table) 10/29/20 14:30 Gram Stain - Preliminary Bronchoalviolar Lavage - Right Bronchial Washings Culture - Preliminary 10/29/20 14:30 Acid Fast Bacilli Culture - Preliminary Bronchoalviolar Lavage - Left 10/29/20 14:30 Fungal Culture - Preliminary Bronchoalviolar Lavage - Right 10/29/20 14:30 Legionella Culture - Preliminary Bronchial Washings - Left 10/25/20 09:44 Blood Culture - Preliminary Blood No Growth after 96 hours <Milind Lebron - Last Filed: 10/30/20 17:16> Subjective As above. Patient doing fairly well from a surgical standpoint. Wound is clean with minimal serous drainage. No fevers. Shortness of breath has improved. From a surgical standpoint she would be stable for discharge at this point. A wait further recommendations from pulmonary. Continue local wound care. Objective - Vital Signs Vital signs: Vital Signs Temp 98.1 F 10/30/20 14:00 Pulse 94 10/30/20 15:47 Resp 18 10/30/20 14:00 BP 140/81 10/30/20 14:00 Pulse Ox 95 10/30/20 14:00 Intake & Output 10/29/20 10/30/20 10/30/20 18:59 06:59 18:59 Intake Total 200 472 Balance 200 472 Weight 77.2 kg Intake: IV 200 Oral 472 Other: Voiding Method Toilet Toilet Toilet # Voids 1 - Labs CBC & Chem 7: 10/29/20 07:37 10/30/20 09:58 Labs: Abnormal Lab Results - Last 24 Hours (Table) 10/29/20 Range/Units 14:30 Viral Test See Below A Microbiology - Last 24 Hours (Table) 10/29/20 14:30 Gram Stain - Preliminary Bronchoalviolar Lavage - Right Bronchial Washings Culture - Preliminary Gram Neg Bacilli 10/25/20 09:44 Blood Culture - Preliminary Blood No Growth after 120 hours 10/29/20 14:30 Acid Fast Bacilli Culture - Preliminary Bronchoalviolar Lavage - Left 10/29/20 14:30 Fungal Culture - Preliminary Bronchoalviolar Lavage - Right 10/29/20 14:30 Legionella Culture - Preliminary Bronchial Washings - Left Assessment and Plan (1) Perforated diverticulum of large intestine Current Visit: No Status: Acute Code(s): K57.20 - DVTRCLI OF LG INT W PERFORATION AND ABSCESS W/O BLEEDING SNOMED Code(s): 612424802
--- NOTE | 2020-10-30 12:23 | P.PN ---
Subjective Progress Note Date: 10/30/20 HISTORY OF PRESENT ILLNESS This is a 59-year-old female patient of Dr. Cisneros with past medical history significant for hypertension and hypertensive cardiovascular di sease with left ventricular hypertrophy, osteoarthritis, gastroesophageal reflux disease, diverticulosis, rheumatoid arthritis diagnosed in 2005 on Enbrel and followed by Dr. Goldman. Patient was hospitalized July 03 to July 05 for sepsis related to facial cellulitis and an immunocompromised host. Thereafter, she had some abdominal pain, for which CAT scan was concerning for perforated sigmoid diverticula, requiring exploratory appendectomy and sigmoid colectomy and end colostomy, 07/08/2020. She now comes in for colostomy reversal, for which Dr. Lebron has performed these on 10/19/2020. Patient has an epidural pain pump, however she is complaining of significant abdominal pain with abdominal distention, no nausea however she is up scopolamine patch, she has uncontrolled pain, no flatus, patient currently is nothing by mouth except medications. Patient denies any fever or chills or shortness of breath no chest pain, no cough, however patient's fearful of getting any nausea vomiting, acid technically hurts even more. She does have ALLERGIES to hydrocodone, oxycodone, hydromorphone, plan for pain management would be tramadol, and the current epidural pain pump. 10/21: Patient evaluated, laying comfortably in the bed. Patient reports she's had a few bouts of diarrhea, she denies any nausea or vomiting. She is tolerating ice chips and popsicles. Her abdomen is soft, nondistended, dressing is clean dry and intact, she has good bowel sounds. Laboratory values showed WB C 14.6, hemoglobin 14.2, sodium 141, potassium 5.3, BUN 9, creatinine 0.7. Vital signs are stable temperature of 98.3, heart rate 94, respiratory rate of 17, blood pressure 113/71, pulse ox 90% on room air. Incentive spirometer at bedside encouraged its use. 10/22: She states that she has been on long-term Protonix and wishes for this to be resumed and Pepcid discontinued which appears to have been done by general surgery. Patient is anxious to start eating. She states she is burping and pas sing flatulence along with diarrhea. She has tenderness to the bilateral lower quadrants. Blood pressure has been elevated but patient states that all the readings are done after she has an emesis. Epidural has been removed. Anticipate Harris catheter to be removed today. Bicarb added to IV fluids. 10/23: Patient pulse ox continues to run on the low side 88-91% on room air. Patient states she had low pulse ox following her previous surgery. She denies feeling short of breath, no cough, no sputum production. She is only reaching 500 on incentive spirometry but at home prior to surgery, patient was reaching 3000. She has been afebrile, temperature max 99.7, heart rate 119, blood pressu re 129/82. Chest x-ray reveals patchy left greater than right bibasilar atelectasis and/or developing infiltrate. Patient started on ceftriaxone for possible early pneumonia. Repeat blood work reveals WBC 12.7, hemoglobin 12.6, platelet count 258. Patient is currently on clear liquid diet and tolerating. Harris catheter was removed yesterday and patient is voiding on her own. 10/24: Patient pulse ox remains low between 90 and 93% on oxygen. She is on 2-3 L. Nursing to do a home oxygen assessment for her. She does complain of shortness of breath with ambulation. She ambulated in the hallway yesterday and could not go very far past her room. She is reaching 1500 ML's on incentive spirometry. CTA of the chest ordered that found no evidence of pulmonary embolism. She is feeling better today in general. Bicarb drip will be discontinued. She continues to have abdominal bloating. She is on a full liquid diet that was started yesterday. She denies nausea vomiting. Repeat blood work reveals potassium 2.7 which will be replaced. Sodium 133, chloride 95, CO2 31, creatinine 0.61. WBC 12.1, hemoglobin 11.9, platelet count 264. 10/25: Patient had temperature of 100.7 yesterday afternoon, antibiotics changed to Zosyn. Urinalysis and blood cultures ordered. Yesterday, patient underwent CTA of the chest which revealed no pulmonary embolism. Coronary artery disease. Basilar atelectasis and emphysema. Patient encouraged to continue incentive spirometry and increase activity. She does complain of continued bloating and has not passed gas today. Heart rate 101, respiratory rate 18, blood pressure 123/73, pulse ox 88% on 3 L nasal cannula. Repeat blood work reveals WBC 10.2, hemoglobin 11.1, platelet count 242. Chemistry is pending. Repeat blood work ordered for tomorrow. 10/26: Pulse ox is morning is 91% on 5 L. She's been afebrile, heart rate 96, blood pressure 139/82. Temperature max was 100.5 at 2 AM. Coronavirus PCR was repeated yesterday which came back not detected. Urine culture from October 25 in process. Patient underwent CAT scan of the abdomen and pelvis revealed changes of colostomy reversal. Appropriate filling of colon without evidence of leak or obstruction. No evidence of abscess or free air. Findings suggest postoperative ileus. Surgery has changed diet to nothing by mouth except for ice chips medications popsicles and gum and added Reglan. Option of NG tube was offered to the patient but she declined at this time. Patient does complain of cough. We'll plan to add in consult with Dr. Kelly. 10/27: Patient has been seen by Dr. Kelly and ruled in for pneumonia. She is continued on Zosyn and he has added in vancomycin. Patient is reaching between 1015 100 on incentive spirometry. She still has shortness of breath with ambula ting. She is currently pulse ox 88% on 2 L nasal cannula. She's been afebrile, heart rate 100, blood pressure 161/93. Repeat blood work reveals WBC 11.6, hemoglobin 11.8, platelet count 355. Electrolytes are normal with BUN of 8 and creatinine 0.5. Blood sugar 172. Patient's still has mild bloating, she is passing stools. JOSHUA cortez, echocardiogram and repeat chest x-ray ordered for today. 10/28: Pulse ox during the night was 89% on 3 L this morning, 96 on 3 L. She's been afebrile, heart rate 96, blood pressure 114/73. Urine culture came back positive for enterococcus. Dr. Kelly is planning on bronchoscopy for tomorrow. Patient continues to have dyspnea especially with activity. She states she has not had a bowel movement was Seen a lot of gas last evening. She is reaching 750-1000 on incentive spirometry. Chest x-ray reveals chronic emphysematous change with small to tiny pleural effusions and lateral left basilar linear atelectasis. Echocardiogram reveals EF of 55-60% with moderate concentric left ventricular hypertrophy, mild mitral regurgitation, mild tricuspid regurgitation. 10/29: Patient states that her diet was advanced last evening which she really appreciated and she is now nothing by mouth waiting for bronchoscopy. She's been afebrile, heart rate 96, blood pressure 166/72, pulse ox 92% on 4 L nasal cannula. Plan to continue to monitor patient closely, possible discharge home by Thursday. 10/30: Patient underwent bronchoscopy yesterday with Dr. Kelly finding left lower lobe pneumonia. Patient states that she is breathing low better today. She has small amount of drainage from her abdominal wound at the umbilicus which was opened by Dr. Lebron. Discomfort at the site is improved. She has been afeb rile, heart rate 91, blood pressure 130/77, pulse ox 93% on 4 L nasal cannula. Creatinine 0.64. Urine culture enterococcus ACM and patient is on vancomycin. She is also on IV Zosyn. Diet is low fiber. She is reaching 1000 ML's on incentive spirometry. REVIEW OF SYSTEMS Constitutional: No fever, no chills, no night sweats. No weight change. No weakness, fatigue or lethargy. No daytime sleepiness. EENT: No headache. No blurred vision or double vision, no loss of vision. No loss of Hearing, no ringing in the ears, no dizziness. No nasal drainage or congestion. No epistaxis. No sore throat. Lungs: Reports continued shortness of breath, reports cough, no sputum production. No wheezing. Reports shortness of breath with activity. Cardiovascular: No chest pain, no lower extremity edema. No palpitations. No paroxysmal nocturnal dyspnea. No orthopnea. No lightheadedness or dizziness. No syncopal episodes. Abdominal: Reports abdominal pain. Reports abdominal bloating. No nausea, vomiting. No diarrhea. Denies constipation. No bloody or tarry stools denies loss of appetite. Genitourinary: No dysuria, increased frequency, urgency. No urinary retention. Musculoskeletal: No myalgias. No muscle weakness, no gait dysfunction, no frequent falls. No back pain. No neck pain. Integumentary: No wounds, no lesions. No rash or pruritus. No unusual bruising. Neurologic: No aphasia. No facial droop. No change in mentation. No head injury. No headache. No paralysis. No paresthesia. Psychiatric: No depression. No anxiety. Endocrine: No abnormal blood sugars. PHYSICAL EXAMINATION Gen: This is a 59-year-old female. Patient is resting in bed and appears to be comfortable and in no acute distress. HEENT: Head is atraumatic, normocephalic. Pupils equal, round. Sclerae is anicteric. NECK: Supple. No JVD. No lymphadenopathy. No thyromegaly. LUNGS: Diminished to the bilateral bases No intercostal retractions. Patient appears to be comfortable at rest. No accessory muscle usage. HEART: Regular rate and rhythm. No murmur. ABDOMEN: Mild distention, Soft. Bowel sounds are present. No masses. No tenderness. Dressing clean dry and intact. EXTREMITIES: No pedal edema. No calf tenderness. Dorsalis pedis palpable bilaterally. NEUROLOGICAL: Patient is awake, alert and oriented x3. Cranial nerves 2 through 12 are grossly intact. ASSESSMENT AND PLAN 1. Colostomy reversal 10/19/2020 with prior history of pneumoperitoneum on from perforated diverticulitis in July 08, requiring sigmoid colectomy and end colostomy. Continue Cepacol, dextrose normal saline with sodium bicarb at 125 mL per hour, Reglan 10 mg IV push every 6 hours as needed, Zofran as needed for nausea, scopolamine patch as needed, tramadol for pain. Diet per general surgery 2. Postop ileus. Clear liquid diet, Reglan was added. 3. Hypertension, hypertensive cardiovascular disease. Continue hydralazine 10 mg IV push every 6 hours as needed for systolic blood pressure greater than 160. Continue Norvasc 5 mg daily. 4. Rheumatoid arthritis under the care of Dr. Goldman. Enbrel and prednisone on hold. 5. Gastroesophageal reflux disease. Continue Pepcid 20 twice a day. 6. Generalized osteoarthritis, stable. 7. 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 Chronic immunosuppressed patient, secondary to Enbrel monitor for wound healing process and nutrition 9. Acute hypoxic respiratory failure requiring oxygen therapy most likely secondary to atelectasis and pneumonia. Continue Zosyn, vancomycin added, continue Pulmicort 0.5 mg twice daily and nebulizer treatment as needed. Consult added for Dr. Kelly from pulmonary medicine appreciated. Status post bronchoscopy with Dr. Kelly. 10. Enterococcus urinary tract infection. Patient is on vancomycin. 11. DVT prophylaxis heparin subcu 12. COVID-19 testing negative. Patient has been hospitalized during a pandemic. DISCHARGE PLAN home. Impression and plan of care have been directed as dictated by the signing physician. Renita Ornelas nurse practitioner acting as scribe for signing physician. Objective - Vital Signs Vital signs: Vital Signs Temp 98.4 F 10/30/20 08:00 Pulse 91 10/30/20 08:00 Resp 18 10/30/20 08:00 BP 130/77 10/30/20 08:00 Pulse Ox 93 L 10/30/20 08:00 Intake & Output 10/29/20 10/30/20 10/30/20 18:59 06:59 18:59 Intake Total 200 Balance 200 Weight 77.2 kg Intake: IV 200 Other: Voiding Method Toilet Toilet - Labs CBC & Chem 7: 10/29/20 07:37 10/30/20 09:58 Labs: Abnormal Lab Results - Last 24 Hours (Table) 10/29/20 Range/Units 07:37 WBC 12.9 H (3.8-10.6) k/uL Neutrophils # 9.9 H (1.3-7.7) k/uL Microbiology - Last 24 Hours (Table) 10/29/20 14:30 Gram Stain - Preliminary Bronchoalviolar Lavage - Right Bronchial Washings Culture - Preliminary 10/29/20 14:30 Acid Fast Bacilli Culture - Preliminary Bronchoalviolar Lavage - Left 10/29/20 14:30 Fungal Culture - Preliminary Bronchoalviolar Lavage - Right 10/29/20 14:30 Legionella Culture - Preliminary Bronchial Washings - Left 10/25/20 09:44 Blood Culture - Preliminary Blood No Growth after 96 hours
[2020-10-30] MEDS: PANTOPRAZOLE 40 MG TABLET PO SCH (17:19)
[2020-10-31] MEDS: HEPARIN SODIUM,PORCINE/PF 5,000 UNIT/0.5 ML SYRINGE SQ SCH ×3 (00:03→14:58)
[2020-10-31] MEDS: PIPERACILLIN-TAZOBACTAM 3.375 GM in SODIUM CHLORIDE 0.9% 100 ML IVPB SCH ×2 (00:06→08:24)
[2020-10-31] MEDS: METOCLOPRAMIDE 5 MG/ML 2 ML VIAL IVP SCH ×4 (00:07→17:10)
[2020-10-31] MEDS: ALPRAZolam 0.5 MG TAB PO PRN (03:37)
[2020-10-31] MEDS: traMADol 50 MG TAB PO PRN ×2 (03:37→21:27)
[2020-10-31] MEDS: VANCOMYCIN 1,250 MG in SODIUM CHLORIDE 0.9% 250 ML IVPB SCH (03:37)
[2020-10-31 07:12] LABS: African American GFR (CKD) >90 (>60 ml/min/1.73 sqM); Non-African American GFR(CKD) >90 (>60 ml/min/1.73 sqM)
[2020-10-31] MEDS: IPRATROPIUM-ALBUTEROL 3 ML NEB INHALATION SCH ×4 (07:45→19:56)
[2020-10-31] MEDS: BUDESONIDE 0.5 MG/2 ML NEBU INHALATION SCH ×2 (07:45→19:56)
[2020-10-31] MEDS: SCOPOLAMINE 1.5MG/72HR PATCH TRANSDERM SCH (08:24)
[2020-10-31] MEDS: amLODIPine 5 MG TAB PO SCH (08:24)
[2020-10-31] MEDS: PANTOPRAZOLE 40 MG TABLET PO SCH ×2 (08:24→17:10)
[2020-10-31] MEDS: NYSTATIN 100,000 UNIT/ML SUSP 500,000 UNIT/5 ML CUP PO SCH ×4 (08:24→21:27)
[2020-10-31 09:11] LABS: Basophils # (A) 0.03 X 10*3/uL (0.00-0.10); Basophils % (A) 0.4 %; Eosinophils # (A) 0.44 X 10*3/uL (0.04-0.35); Eosinophils % (A) 5.4 %; HGB 11.3 g/dL (12.0-15.0); Lymphocytes # (A) 1.78 X 10*3/uL (0.90-5.00); Lymphocytes % (A) 21.7 %; MCH 28.8 pg (27.0-32.0); MCHC 32.3 g/dL (32.0-37.0); MCV 89.1 fL (80.0-97.0); Mean Platelet Volume 9.1 fL (9.5-12.2); Monocytes # (A) 0.43 X 10*3/uL (0.20-1.00); Monocytes % (A) 5.2 %; Neutrophils % (A) 65.7 %; Platelet Count 413 X 10*3/uL (140-440); RBC 3.93 X 10*6/uL (4.10-5.20); RDW 14.1 % (11.5-14.5); WBC 8.21 X 10*3/uL (4.50-10.00)
--- NOTE | 2020-10-31 11:04 | P.PN ---
Subjective Progress Note Date: 10/31/20 Principal diagnosis: Bilateral basal pneumonia left more than right, patient has been adequately covered with Zosyn however given history of MRSA in mouth we will add IV vancomycin as well pending his sputum studies Acute hypoxic respiratory failure Immunosuppressed status Status post reversal of colostomy Electrolyte imbalance with hypokalemia Advanced rheumatoid arthritis Hypertension hypertensive cardiovascular disease Baseline COPD 10/31/2020, patient seen and evaluated examined during the rounds labs reviewed medications reviewed shortness of breath continued to improve but severity has improved as well, predominately present at during exertion, bronchial washing culture reports are pending patient is growing E. coli in the BAL which is ESBL, will DC vancomycin, DC Zosyn, patient will be started on Merrem, with ID on consultation for duration of antibiotics patient has been updated Oct 30 2020, patient seen eval examined during the rounds labs reviewed medications reviewed care plan discussed with the primary service at length, status post a bronchoscopy, patient updated about bronchoscopy finding, patient is feeling slightly better able to say. Sentences however remains on 4 L oxygen, patient remains on IV vancomycin and Zosyn, Gram stain on BAL positive for gram-positive cocci 10/29/2020, patient seen eval examined, nonexertional shortness of breath present, was not able to find the maximal respiratory pressures, assess. Noted again, patient remains on vancomycin and Zosyn, patient scheduled for bronchoscopy later on today, noted that patient is on 4 L oxygen now 10/28/2020, patient seen eval examined during the rounds labs reviewed medications reviewed and still have shortness of breath activity and exertion, patient is scheduled for bronchoscopy for tomorrow to be nothing by mouth after midnight procedure have been explained to the patient, currently on Vanco and Zosyn sputum studies are pending 10/27/2020, patient seen eval examined during the rounds labs reviewed medications reviewed care plan discussed, respiratory status remains stable denies any chest pain but however get short of breath on minimal activity and exertion, remains on supplemental oxygen ongoing cough is present, cooperative provider for sputum Gram stain and culture, patient updated about computed tomography scan finding, remains afebrile hemodynamically stable saturation is 91% 3 L oxygen, labs reviewed white cell count 11,600, I have discussed with her about bronchoscopy and buttock bronchoalveolar lavage early next week Patient is a pleasant 59-year-old female with extensive history of smoking and nicotine use, patient is status post Trang procedure in June for perforated sigmoid diverticulitis admitted for colostomy reversal, performed successfully on 10/19/2020, patient initially was on epidural pain [employer] [place] analgesia, patient has ongoing shortness of breath which is more pronounced and active during activity and exertion, patient has been on 3 to 5 L nasal cannula L nasal cannula oxygen now lately have been tapered down to 2 L oxygen saturation is 90%, patient has been slightly tachypneic with respiratory rate in high teens and heart rate sinus tachycardia 100 tp 110, chest x-ray performed on October 22 patchy bilateral basal infiltrate more so on the right side compared to left side developing pneumonia cannot be excluded, CAT scan revealed by basilar infiltrate with air bronchogram with emphysema in the upper lobes, no obvious pulmonary embolism seen in the central vasculature, patient white cell count is up to 13,500, labs significant for sodium was 138 potassium 3.4, cold with 19 pneumonia PCR is negative, patient currently on D.O. nab unit dose 4 times a day, also on her antihypertensive agents, DVT prophylaxis, Solu-Medrol 60 mg IV every 6 hourly with Zosyn 3.375 every 8 hourly past medical history significant for GERD hypertension hypertensive cardiovascular disease rheumatoid arthritis and diverticulosis, also had the MRSA infection in cheek area with abscess in June 2020, patient used to smoke heavily about 1 pack per day for 30 years quit about 8 years ago, patient has been getting infusion with Enbrel for rheumatoid arthritis once a week Objective - Vital Signs Vital signs: Vital Signs Temp 97.9 F 10/31/20 08:00 Pulse 90 10/31/20 08:01 Resp 16 10/31/20 08:00 BP 128/80 10/31/20 08:00 Pulse Ox 94 L 10/31/20 08:00 Intake & Output 10/30/20 10/31/20 10/31/20 18:59 06:59 18:59 Intake Total 708 Balance 708 Intake: Oral 708 Other: Voiding Method Toilet Toilet Toilet # Voids 1 - Exam - Constitutional General appearance: average body habitus, cooperative, disheveled - EENT Eyes: PERRLA ENT: hearing grossly normal Ears: bilateral: normal - Neck Neck: normal ROM Carotids: bilateral: upstroke normal Thyroid: bilateral: normal size - Respiratory Respiratory: bilateral: rales (Bilateral basal area with bronchial breath sound more so on the left side compared right side), prolonged expiration - Cardiovascular Rhythm: regular Heart sounds: normal: S1, S2 - Gastrointestinal Surgical incision and the scar is stable healing nicely General gastrointestinal: decreased bowel sounds, soft - Integumentary Integumentary: normal turgor - Neurologic Neurologic: CNII-XII intact - Musculoskeletal Musculoskeletal: gait normal, generalized weakness, strength equal bilaterally - Psychiatric Psychiatric: A&O x's 3, appropriate affect, intact judgment & insight - Labs CBC & Chem 7: 10/31/20 06:20 10/31/20 06:20 Labs: Abnormal Lab Results - Last 24 Hours (Table) 10/29/20 10/31/20 Range/Units 14:30 06:20 RBC 3.93 L (4.10-5.20) X 10*6/uL Hgb 11.3 L (12.0-15.0) g/dL Hct 35.0 L (37.2-46.3) % MPV 9.1 L (9.5-12.2) fL Immature Gran # 0.13 H (0.00-0.04) X 10*3/uL Eosinophils # 0.44 H (0.04-0.35) X 10*3/uL Viral Test See Below A Microbiology - Last 24 Hours (Table) 10/29/20 14:30 Gram Stain - Final Bronchoalviolar Lavage - Right Bronchial Washings Culture - Final Escherichia coli 10/29/20 14:30 Acid Fast Bacilli Smear - Final Bronchoalviolar Lavage - Left Acid Fast Bacilli Culture - Preliminary 10/25/20 09:44 Blood Culture - Preliminary Blood No Growth after 120 hours Assessment and Plan Assessment: E. coli ESBL Bilateral basal pneumonia left more than right, meropenem has been started ID consultation pending Acute hypoxic respiratory failure Immunosuppressed status Status post reversal of colostomy Electrolyte imbalance with hypokalemia Advanced rheumatoid arthritis Hypertension hypertensive cardiovascular disease Baseline COPD Plan: Bronchoscopy and bronchoalveolar lavage reviewed and discussed with primary service as well as the patient at length DC Zosyn and and IV vancomycin, start IV meropenem with ID evaluation pending Recommend deep breathing exercises incentive spirometry Follow-up on bronchoalveolar lavage Continue deep breathing sense incentive spirometry Further plan of care as per clinical response of the patient Time with Patient: Greater than 30
--- NOTE | 2020-10-31 11:18 | P.PN ---
Subjective Progress Note Date: 10/31/20 HISTORY OF PRESENT ILLNESS This is a 59-year-old female patient of Dr. Cisneros with past medical history significant for hypertension and hypertensive cardiovascular di sease with left ventricular hypertrophy, osteoarthritis, gastroesophageal reflux disease, diverticulosis, rheumatoid arthritis diagnosed in 2005 on Enbrel and followed by Dr. Goldman. Patient was hospitalized July 03 to July 05 for sepsis related to facial cellulitis and an immunocompromised host. Thereafter, she had some abdominal pain, for which CAT scan was concerning for perforated sigmoid diverticula, requiring exploratory appendectomy and sigmoid colectomy and end colostomy, 07/08/2020. She now comes in for colostomy reversal, for which Dr. Lebron has performed these on 10/19/2020. Patient has an epidural pain pump, however she is complaining of significant abdominal pain with abdominal distention, no nausea however she is up scopolamine patch, she has uncontrolled pain, no flatus, patient currently is nothing by mouth except medications. Patient denies any fever or chills or shortness of breath no chest pain, no cough, however patient's fearful of getting any nausea vomiting, acid technically hurts even more. She does have ALLERGIES to hydrocodone, oxycodone, hydromorphone, plan for pain management would be tramadol, and the current epidural pain pump. 10/21: Patient evaluated, laying comfortably in the bed. Patient reports she's had a few bouts of diarrhea, she denies any nausea or vomiting. She is tolerating ice chips and popsicles. Her abdomen is soft, nondistended, dressing is clean dry and intact, she has good bowel sounds. Laboratory values showed WB C 14.6, hemoglobin 14.2, sodium 141, potassium 5.3, BUN 9, creatinine 0.7. Vital signs are stable temperature of 98.3, heart rate 94, respiratory rate of 17, blood pressure 113/71, pulse ox 90% on room air. Incentive spirometer at bedside encouraged its use. 10/22: She states that she has been on long-term Protonix and wishes for this to be resumed and Pepcid discontinued which appears to have been done by general surgery. Patient is anxious to start eating. She states she is burping and [place] flatulence along with diarrhea. She has tenderness to the bilateral lower quadrants. Blood pressure has been elevated but patient states that all the readings are done after she has an emesis. Epidural has been removed. Anticipate Harris catheter to be removed today. Bicarb added to IV fluids. 10/23: Patient pulse ox continues to run on the low side 88-91% on room air. Patient states she had low pulse ox following her previous surgery. She denies feeling short of breath, no cough, no sputum production. She is only reaching 500 on incentive spirometry but at home prior to surgery, patient was reaching 3000. She has been afebrile, temperature max 99.7, heart rate 119, blood pressu re 129/82. Chest x-ray reveals patchy left greater than right bibasilar atelectasis and/or developing infiltrate. Patient started on ceftriaxone for possible early pneumonia. Repeat blood work reveals WBC 12.7, hemoglobin 12.6, platelet count 258. Patient is currently on clear liquid diet and tolerating. Harris catheter was removed yesterday and patient is voiding on her own. 10/24: Patient pulse ox remains low between 90 and 93% on oxygen. She is on 2-3 L. Nursing to do a home oxygen assessment for her. She does complain of shortness of breath with ambulation. She ambulated in the hallway yesterday and could not go very far past her room. She is reaching 1500 ML's on incentive spirometry. CTA of the chest ordered that found no evidence of pulmonary embolism. She is feeling better today in general. Bicarb drip will be discontinued. She continues to have abdominal bloating. She is on a full liquid diet that was started yesterday. She denies nausea vomiting. Repeat blood work reveals potassium 2.7 which will be replaced. Sodium 133, chloride 95, CO2 31, creatinine 0.61. WBC 12.1, hemoglobin 11.9, platelet count 264. 10/25: Patient had temperature of 100.7 yesterday afternoon, antibiotics changed to Zosyn. Urinalysis and blood cultures ordered. Yesterday, patient underwent CTA of the chest which revealed no pulmonary embolism. Coronary artery disease. Basilar atelectasis and emphysema. Patient encouraged to continue incentive spirometry and increase activity. She does complain of continued bloating and has not passed gas today. Heart rate 101, respiratory rate 18, blood pressure 123/73, pulse ox 88% on 3 L nasal cannula. Repeat blood work reveals WBC 10.2, hemoglobin 11.1, platelet count 242. Chemistry is pending. Repeat blood work ordered for tomorrow. 10/26: Pulse ox is morning is 91% on 5 L. She's been afebrile, heart rate 96, blood pressure 139/82. Temperature max was 100.5 at 2 AM. Coronavirus PCR was repeated yesterday which came back not detected. Urine culture from October 25 in process. Patient underwent CAT scan of the abdomen and pelvis revealed changes of colostomy reversal. Appropriate filling of colon without evidence of leak or obstruction. No evidence of abscess or free air. Findings suggest postoperative ileus. Surgery has changed diet to nothing by mouth except for ice chips medications popsicles and gum and added Reglan. Option of NG tube was offered to the patient but she declined at this time. Patient does complain of cough. We'll plan to add in consult with Dr. Kelly. 10/27: Patient has been seen by Dr. Kelly and ruled in for pneumonia. She is continued on Zosyn and he has added in vancomycin. Patient is reaching between 1015 100 on incentive spirometry. She still has shortness of breath with ambula ting. She is currently pulse ox 88% on 2 L nasal cannula. She's been afebrile, heart rate 100, blood pressure 161/93. Repeat blood work reveals WBC 11.6, hemoglobin 11.8, platelet count 355. Electrolytes are normal with BUN of 8 and creatinine 0.5. Blood sugar 172. Patient's still has mild bloating, she is passing stools. JOSHUA cortez, echocardiogram and repeat chest x-ray ordered for today. 10/28: Pulse ox during the night was 89% on 3 L this morning, 96 on 3 L. She's been afebrile, heart rate 96, blood pressure 114/73. Urine culture came back positive for enterococcus. Dr. Kelly is planning on bronchoscopy for tomorrow. Patient continues to have dyspnea especially with activity. She states she has not had a bowel movement was Seen a lot of gas last evening. She is reaching 750-1000 on incentive spirometry. Chest x-ray reveals chronic emphysematous change with small to tiny pleural effusions and lateral left basilar linear atelectasis. Echocardiogram reveals EF of 55-60% with moderate concentric left ventricular hypertrophy, mild mitral regurgitation, mild tricuspid regurgitation. 10/29: Patient states that her diet was advanced last evening which she really appreciated and she is now nothing by mouth waiting for bronchoscopy. She's been afebrile, heart rate 96, blood pressure 166/72, pulse ox 92% on 4 L nasal cannula. Plan to continue to monitor patient closely, possible discharge home by Thursday. 10/30: Patient underwent bronchoscopy yesterday with Dr. Kelly finding left lower lobe pneumonia. Patient states that she is breathing low better today. She has small amount of drainage from her abdominal wound at the umbilicus which was opened by Dr. Lebron. Discomfort at the site is improved. She has been afeb rile, heart rate 91, blood pressure 130/77, pulse ox 93% on 4 L nasal cannula. Creatinine 0.64. Urine culture enterococcus ACM and patient is on vancomycin. She is also on IV Zosyn. Diet is low fiber. She is reaching 1000 ML's on incentive spirometry. 10/31: Patient states that her breathing is a little bit better and when she gets up to walk it takes her last time to recover but still having shortness of breath with minimal activity. She is passing gas. Last bowel movement was yesterday. She is tolerating diet without any nausea or vomiting. She has been afebrile, heart rate 89, blood pressure 120/80, pulse ox 94% on 4 L nasal cannula. Repeat blood work reveals WBC 8.2, hemoglobin 11.3, platelet count 413. Dr. Kelly has changed antibiotics to meropenem. Viral study from from [facility] was negative. Anticipate possible discharge tomorrow. REVIEW OF SYSTEMS Constitutional: No fever, no chills, no night sweats. No weight change. No weakness, fatigue or lethargy. No daytime sleepiness. EENT: No headache. No blurred vision or double vision, no loss of vision. No loss of Hearing, no ringing in the ears, no dizziness. No nasal drainage or congestion. No epistaxis. No sore throat. Lungs: Reports continued shortness of breath, reports cough, no sputum production. No wheezing. Reports shortness of breath with activity. Cardiovascular: No chest pain, no lower extremity edema. No palpitations. No paroxysmal nocturnal dyspnea. No orthopnea. No lightheadedness or dizziness. No syncopal episodes. Abdominal: Reports abdominal pain. Reports abdominal bloating. No nausea, vomiting. No diarrhea. Denies constipation. No bloody or tarry stools denies loss of appetite. Genitourinary: No dysuria, increased frequency, urgency. No urinary retention. Musculoskeletal: No myalgias. No muscle weakness, no gait dysfunction, no frequent falls. No back pain. No neck pain. Integumentary: No wounds, no lesions. No rash or pruritus. No unusual bruising. Neurologic: No aphasia. No facial droop. No change in mentation. No head injury. No headache. No paralysis. No paresthesia. Psychiatric: No depression. No anxiety. Endocrine: No abnormal blood sugars. PHYSICAL EXAMINATION Gen: This is a 59-year-old female. Patient is resting in bed and appears to be comfortable and in no acute distress. HEENT: Head is atraumatic, normocephalic. Pupils equal, round. Sclerae is anicteric. NECK: Supple. No JVD. No lymphadenopathy. No thyromegaly. LUNGS: Diminished to the bilateral bases No intercostal retractions. Patient appears to be comfortable at rest. No accessory muscle usage. HEART: Regular rate and rhythm. No murmur. ABDOMEN: Mild distention, Soft. Bowel sounds are present. No masses. No tenderness. Dressing clean dry and intact. EXTREMITIES: No pedal edema. No calf tenderness. Dorsalis pedis palpable bilaterally. NEUROLOGICAL: Patient is awake, alert and oriented x3. Cranial nerves 2 through 12 are grossly intact. ASSESSMENT AND PLAN 1. Colostomy reversal 10/19/2020 with prior history of pneumoperitoneum on from perforated diverticulitis in July 08, requiring sigmoid colectomy and end colostomy. Continue plan per general surgery 2. Postop ileus, resolved. Clear liquid diet, Reglan was added. 3. Hypertension, hypertensive cardiovascular disease. Continue hydralazine 10 mg IV push every 6 hours as needed for systolic blood pressure greater than 160. Continue Norvasc 5 mg daily. 4. Rheumatoid arthritis under the care of Dr. Goldman. Enbrel and prednisone on hold. 5. Gastroesophageal reflux disease. Continue Pepcid 20 twice a day. 6. Generalized osteoarthritis, stable. 7. 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 Chronic immunosuppressed patient, secondary to Enbrel monitor for wound healing process and nutrition 9. Acute hypoxic respiratory failure requiring oxygen therapy most likely secondary to atelectasis and possible gram-negative pneumonia. Continue Zosyn, continue Pulmicort 0.5 mg twice daily and nebulizer treatment as needed. Consult Dr. Kelly from pulmonary medicine appreciated. Status post bronchoscopy with Dr. Kelly. 10. Enterococcus urinary tract infection. Patient is on vancomycin. 11. DVT prophylaxis heparin subcu 12. Chronic hypoxic failure requiring home oxygen therapy. Patient requires oxygen in order to manage her simple ADLs secondary to atelectasis and left lower lobe pneumonia. 13. COVID-19 testing negative. Patient has been hospitalized during a pandemic. DISCHARGE PLAN home. Impression and plan of care have been directed as dictated by the signing physician. Renita Ornelas nurse practitioner acting as scribe for signing physician. Objective - Vital Signs Vital signs: Vital Signs Temp 97.9 F 10/31/20 08:00 Pulse 90 10/31/20 08:01 Resp 16 10/31/20 08:00 BP 128/80 10/31/20 08:00 Pulse Ox 94 L 10/31/20 08:00 Intake & Output 10/30/20 10/31/20 10/31/20 18:59 06:59 18:59 Intake Total 708 Balance 708 Intake: Oral 708 Other: Voiding Method Toilet Toilet # Voids 1 - Labs CBC & Chem 7: 10/31/20 06:20 10/31/20 06:20 Labs: Abnormal Lab Results - Last 24 Hours (Table) 10/29/20 10/31/20 Range/Units 14:30 06:20 RBC 3.93 L (4.10-5.20) X 10*6/uL Hgb 11.3 L (12.0-15.0) g/dL Hct 35.0 L (37.2-46.3) % MPV 9.1 L (9.5-12.2) fL Immature Gran # 0.13 H (0.00-0.04) X 10*3/uL Eosinophils # 0.44 H (0.04-0.35) X 10*3/uL Viral Test See Below A Microbiology - Last 24 Hours (Table) 10/29/20 14:30 Acid Fast Bacilli Smear - Final Bronchoalviolar Lavage - Left Acid Fast Bacilli Culture - Preliminary 10/29/20 14:30 Gram Stain - Preliminary Bronchoalviolar Lavage - Right Bronchial Washings Culture - Preliminary Gram Neg Bacilli 10/25/20 09:44 Blood Culture - Preliminary Blood No Growth after 120 hours
[2020-10-31] MEDS ORDERED: TEMAZEPAM 15 MG CAP PO PRN (11:54)
--- NOTE | 2020-10-31 11:54 | P.PN ---
Subjective Progress Note Date: 10/31/20 Principal diagnosis: Diverticulitis Patient doing better today. Shortness of breath seems to be improved. Still has mild abdominal cramps at times. Passing flatus. No bowel movements today. She is tolerating her diet. Infectious disease consulted after bronchoscopy cultures obtained. Objective - Vital Signs Vital signs: Vital Signs Temp 97.9 F 10/31/20 08:00 Pulse 93 10/31/20 11:26 Resp 16 10/31/20 08:00 BP 128/80 10/31/20 08:00 Pulse Ox 94 L 10/31/20 08:00 Intake & Output 10/30/20 10/31/20 10/31/20 18:59 06:59 18:59 Intake Total 708 Balance 708 Intake: Oral 708 Other: Voiding Method Toilet Toilet Toilet # Voids 1 - Exam Abdomen: Soft, nondistended, wound clean, no appreciable tenderness - Labs CBC & Chem 7: 10/31/20 06:20 10/31/20 06:20 Labs: Abnormal Lab Results - Last 24 Hours (Table) 10/29/20 10/31/20 Range/Units 14:30 06:20 RBC 3.93 L (4.10-5.20) X 10*6/uL Hgb 11.3 L (12.0-15.0) g/dL Hct 35.0 L (37.2-46.3) % MPV 9.1 L (9.5-12.2) fL Immature Gran # 0.13 H (0.00-0.04) X 10*3/uL Eosinophils # 0.44 H (0.04-0.35) X 10*3/uL Viral Test See Below A Microbiology - Last 24 Hours (Table) 10/29/20 14:30 Gram Stain - Final Bronchoalviolar Lavage - Right Bronchial Washings Culture - Final Escherichia coli 10/29/20 14:30 Acid Fast Bacilli Smear - Final Bronchoalviolar Lavage - Left Acid Fast Bacilli Culture - Preliminary 10/25/20 09:44 Blood Culture - Preliminary Blood No Growth after 120 hours Assessment and Plan (1) Perforated diverticulum of large intestine Narrative/Plan: Patient improving. Continue antibiotics. Await ID evaluation. Possible discharge when they cleared her. Current Visit: No Status: Acute Code(s): K57.20 - DVTRCLI OF LG INT W PERFORATION AND ABSCESS W/O BLEEDING SNOMED Code(s): 163066285
[2020-10-31] MEDS: SODIUM CHLORIDE 0.9% 1,000 ML IV SCH ×2 (13:02→21:28)
[2020-10-31] MEDS: MEROPENEM 1 GM in SODIUM CHLORIDE 0.9% 100 ML IVPB SCH (21:27)
[2020-11-01] MEDS: METOCLOPRAMIDE 5 MG/ML 2 ML VIAL IVP SCH ×3 (00:40→12:01)
[2020-11-01] MEDS: HEPARIN SODIUM,PORCINE/PF 5,000 UNIT/0.5 ML SYRINGE SQ SCH ×3 (00:41→15:30)
[2020-11-01] MEDS: ALPRAZolam 0.5 MG TAB PO PRN (01:06)
[2020-11-01 03:04] VITALS: RESP 18
[2020-11-01] MEDS: PANTOPRAZOLE 40 MG TABLET PO SCH (07:46)
[2020-11-01] MEDS: amLODIPine 5 MG TAB PO SCH (07:46)
[2020-11-01] MEDS: NYSTATIN 100,000 UNIT/ML SUSP 500,000 UNIT/5 ML CUP PO SCH ×2 (07:47→12:02)
[2020-11-01] MEDS: MEROPENEM 1 GM in SODIUM CHLORIDE 0.9% 100 ML IVPB SCH (07:47)
[2020-11-01] MEDS: IPRATROPIUM-ALBUTEROL 3 ML NEB INHALATION SCH ×2 (08:12→11:54)
[2020-11-01] MEDS: BUDESONIDE 0.5 MG/2 ML NEBU INHALATION SCH (08:13)
--- NOTE | 2020-11-01 12:15 | P.PN ---
Subjective Progress Note Date: 11/01/20 HISTORY OF PRESENT ILLNESS This is a 59-year-old female patient of Dr. Cisneros with past medical history significant for hypertension and hypertensive cardiovascular di sease with left ventricular hypertrophy, osteoarthritis, gastroesophageal reflux disease, diverticulosis, rheumatoid arthritis diagnosed in 2005 on Enbrel and followed by Dr. Goldman. Patient was hospitalized July 03 to July 05 for sepsis related to facial cellulitis and an immunocompromised host. Thereafter, she had some abdominal pain, for which CAT scan was concerning for perforated sigmoid diverticula, requiring exploratory appendectomy and sigmoid colectomy and end colostomy, 07/08/2020. She now comes in for colostomy reversal, for which Dr. Lebron has performed these on 10/19/2020. Patient has an epidural pain pump, however she is complaining of significant abdominal pain with abdominal distention, no nausea however she is up scopolamine patch, she has uncontrolled pain, no flatus, patient currently is nothing by mouth except medications. Patient denies any fever or chills or shortness of breath no chest pain, no cough, however patient's fearful of getting any nausea vomiting, acid technically hurts even more. She does have ALLERGIES to hydrocodone, oxycodone, hydromorphone, plan for pain management would be tramadol, and the current epidural pain pump. 10/21: Patient evaluated, laying comfortably in the bed. Patient reports she's had a few bouts of diarrhea, she denies any nausea or vomiting. She is tolerating ice chips and popsicles. Her abdomen is soft, nondistended, dressing is clean dry and intact, she has good bowel sounds. Laboratory values showed WB C 14.6, hemoglobin 14.2, sodium 141, potassium 5.3, BUN 9, creatinine 0.7. Vital signs are stable temperature of 98.3, heart rate 94, respiratory rate of 17, blood pressure 113/71, pulse ox 90% on room air. Incentive spirometer at bedside encouraged its use. 10/22: She states that she has been on long-term Protonix and wishes for this to be resumed and Pepcid discontinued which appears to have been done by general surgery. Patient is anxious to start eating. She states she is burping and pas sing flatulence along with diarrhea. She has tenderness to the bilateral lower quadrants. Blood pressure has been elevated but patient states that all the readings are done after she has an emesis. Epidural has been removed. Anticipate Harris catheter to be removed today. Bicarb added to IV fluids. 10/23: Patient pulse ox continues to run on the low side 88-91% on room air. Patient states she had low pulse ox following her previous surgery. She denies feeling short of breath, no cough, no sputum production. She is only reaching 500 on incentive spirometry but at home prior to surgery, patient was reaching 3000. She has been afebrile, temperature max 99.7, heart rate 119, blood pressu re 129/82. Chest x-ray reveals patchy left greater than right bibasilar atelectasis and/or developing infiltrate. Patient started on ceftriaxone for possible early pneumonia. Repeat blood work reveals WBC 12.7, hemoglobin 12.6, platelet count 258. Patient is currently on clear liquid diet and tolerating. Harris catheter was removed yesterday and patient is voiding on her own. 10/24: Patient pulse ox remains low between 90 and 93% on oxygen. She is on 2-3 L. Nursing to do a home oxygen assessment for her. She does complain of shortness of breath with ambulation. She ambulated in the hallway yesterday and could not go very far past her room. She is reaching 1500 ML's on incentive spirometry. CTA of the chest ordered that found no evidence of pulmonary embolism. She is feeling better today in general. Bicarb drip will be discontinued. She continues to have abdominal bloating. She is on a full liquid diet that was started yesterday. She denies nausea vomiting. Repeat blood work reveals potassium 2.7 which will be replaced. Sodium 133, chloride 95, CO2 31, creatinine 0.61. WBC 12.1, hemoglobin 11.9, platelet count 264. 10/25: Patient had temperature of 100.7 yesterday afternoon, antibiotics changed to Zosyn. Urinalysis and blood cultures ordered. Yesterday, patient underwent CTA of the chest which revealed no pulmonary embolism. Coronary artery disease. Basilar atelectasis and emphysema. Patient encouraged to continue incentive spirometry and increase activity. She does complain of continued bloating and has not passed gas today. Heart rate 101, respiratory rate 18, blood pressure 123/73, pulse ox 88% on 3 L nasal cannula. Repeat blood work reveals WBC 10.2, hemoglobin 11.1, platelet count 242. Chemistry is pending. Repeat blood work ordered for tomorrow. 10/26: Pulse ox is morning is 91% on 5 L. She's been afebrile, heart rate 96, blood pressure 139/82. Temperature max was 100.5 at 2 AM. Coronavirus PCR was repeated yesterday which came back not detected. Urine culture from October 25 in process. Patient underwent CAT scan of the abdomen and pelvis revealed changes of colostomy reversal. Appropriate filling of colon without evidence of leak or obstruction. No evidence of abscess or free air. Findings suggest postoperative ileus. Surgery has changed diet to nothing by mouth except for ice chips medications popsicles and gum and added Reglan. Option of NG tube was offered to the patient but she declined at this time. Patient does complain of cough. We'll plan to add in consult with Dr. Kelly. 10/27: Patient has been seen by Dr. Kelly and ruled in for pneumonia. She is continued on Zosyn and he has added in vancomycin. Patient is reaching between 1015 100 on incentive spirometry. She still has shortness of breath with ambula ting. She is currently pulse ox 88% on 2 L nasal cannula. She's been afebrile, heart rate 100, blood pressure 161/93. Repeat blood work reveals WBC 11.6, hemoglobin 11.8, platelet count 355. Electrolytes are normal with BUN of 8 and creatinine 0.5. Blood sugar 172. Patient's still has mild bloating, she is passing stools. JOSHUA cortez, echocardiogram and repeat chest x-ray ordered for today. 10/28: Pulse ox during the night was 89% on 3 L this morning, 96 on 3 L. She's been afebrile, heart rate 96, blood pressure 114/73. Urine culture came back positive for enterococcus. Dr. Kelly is planning on bronchoscopy for tomorrow. Patient continues to have dyspnea especially with activity. She states she has not had a bowel movement was Seen a lot of gas last evening. She is reaching 750-1000 on incentive spirometry. Chest x-ray reveals chronic emphysematous change with small to tiny pleural effusions and lateral left basilar linear atelectasis. Echocardiogram reveals EF of 55-60% with moderate concentric left ventricular hypertrophy, mild mitral regurgitation, mild tricuspid regurgitation. 10/29: Patient states that her diet was advanced last evening which she really appreciated and she is now nothing by mouth waiting for bronchoscopy. She's been afebrile, heart rate 96, blood pressure 166/72, pulse ox 92% on 4 L nasal cannula. Plan to continue to monitor patient closely, possible discharge home by Thursday. 10/30: Patient underwent bronchoscopy yesterday with Dr. Kelly finding left lower lobe pneumonia. Patient states that she is breathing low better today. She has small amount of drainage from her abdominal wound at the umbilicus which was opened by Dr. Lebron. Discomfort at the site is improved. She has been afeb rile, heart rate 91, blood pressure 130/77, pulse ox 93% on 4 L nasal cannula. Creatinine 0.64. Urine culture enterococcus ACM and patient is on vancomycin. She is also on IV Zosyn. Diet is low fiber. She is reaching 1000 ML's on incentive spirometry. 10/31: Patient states that her breathing is a little bit better and when she gets up to walk it takes her last time to recover but still having shortness of breath with minimal activity. She is passing gas. Last bowel movement was yesterday. She is tolerating diet without any nausea or vomiting. She has been afebrile, heart rate 89, blood pressure 120/80, pulse ox 94% on 4 L nasal cannula. Repeat blood work reveals WBC 8.2, hemoglobin 11.3, platelet count 413. Dr. Kelly has changed antibiotics to meropenem. Viral study from from [facility] was negative. Anticipate possible discharge tomorrow. 11/01: Patient continues to have slow improvement of her breathing status. She is still requiring oxygen and pulse ox is 84% on 4 L nasal cannula. She has been afebrile, heart rate 90, blood pressure 127/79. Oxygen home assessment test to be done today. Consult was added for Dr. Lewis regarding ESBL E. coli and bronched washings. He is advised for midline placement which is been ordered and Invanz for 12 days. 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 Patient is planning to have IV antibiotics infused at [facility] office. Anticipate that she will be ready for discharge today. Medication reconciliation has been reviewed. REVIEW OF SYSTEMS Constitutional: No fever, no chills, no night sweats. No weight change. No weakness, fatigue or lethargy. No daytime sleepiness. EENT: No headache. No blurred vision or double vision, no loss of vision. No loss of Hearing, no ringing in the ears, no dizziness. No nasal drainage or congestion. No epistaxis. No sore throat. Lungs: Reports shortness of breathimproving, reports cough, no sputum production. No wheezing. Reports shortness of breath with activity. Cardiovascular: No chest pain, no lower extremity edema. No palpitations. No paroxysmal nocturnal dyspnea. No orthopnea. No lightheadedness or dizziness. No syncopal episodes. Abdominal: Denies abdominal pain. Reports abdominal bloating. No nausea, vomiting. No diarrhea. Denies constipation. No bloody or tarry stools denies loss of appetite. Genitourinary: No dysuria, increased frequency, urgency. No urinary retention. Musculoskeletal: No myalgias. No muscle weakness, no gait dysfunction, no frequent falls. No back pain. No neck pain. Integumentary: No wounds, no lesions. No rash or pruritus. No unusual bruising. Neurologic: No aphasia. No facial droop. No change in mentation. No head injury. No headache. No paralysis. No paresthesia. Psychiatric: No depression. No anxiety. Endocrine: No abnormal blood sugars. PHYSICAL EXAMINATION Gen: This is a 59-year-old female. Patient is resting in bed and appears to be comfortable and in no acute distress. Patient is also seen ambulating in her room to her doorway. Breathing status seems to be stable. HEENT: Head is atraumatic, normocephalic. Pupils equal, round. Sclerae is anicte claudia. NECK: Supple. No JVD. No lymphadenopathy. No thyromegaly. LUNGS: Diminished to the bilateral bases No intercostal retractions. Patient appears to be comfortable at rest. No accessory muscle usage. HEART: Regular rate and rhythm. No murmur. ABDOMEN: No abdominal distention, Soft. Bowel sounds are present. No masses. No tenderness. Dressing clean dry and intact. EXTREMITIES: No pedal edema. No calf tenderness. Dorsalis pedis palpable bilaterally. NEUROLOGICAL: Patient is awake, alert and oriented x3. Cranial nerves 2 through 12 are grossly intact. ASSESSMENT AND PLAN 1. Colostomy reversal 10/19/2020 with prior history of pneumoperitoneum on from perforated diverticulitis in July 08, requiring sigmoid colectomy and end colostomy. Continue plan per general surgery 2. Postop ileus, resolved. 3. Hypertension, hypertensive cardiovascular disease. Continue Norvasc 5 mg daily. 4. Rheumatoid arthritis under the care of Dr. Goldman. Enbrel and prednisone on hold. Patient to hold Enbrel for one week following completion of antibiotics. 5. Gastroesophageal reflux disease. Continue Pepcid 20 twice a day. 6. Generalized osteoarthritis, stable. 7. 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 Chronic immunosuppressed patient, secondary to Enbrel monitor for wound healing process and nutrition 9. Acute hypoxic respiratory failure requiring oxygen therapy most likely secondary to atelectasis and E. coli ESBL pneumonia. Continue meropenem with plan for Invanz 1 g daily for [address] Lewis. Continue Pulmicort 0.5 mg twice daily and nebulizer treatment as needed. Consult Dr. Kelyl from pulmonary medicine appreciated. Status post bronchoscopy with Dr. Kelly. 10. Enterococcus urinary tract infection. Patient is on vancomycin. 11. DVT prophylaxis heparin subcu 12. Chronic hypoxic failure requiring home oxygen therapy. Patient requires oxygen in order to manage her simple ADLs secondary to atelectasis and left lower lobe pneumonia. 13. COVID-19 testing negative. Patient has been hospitalized during a castillo demic. DISCHARGE PLAN home with IV antibiotics through [facility] office. Home oxygen therapy has been ordered. Nebulizer ordered for home as patient requires nebulizer with DuoNeb to manage pneumonia. Impression and plan of care have been directed as dictated by the signing p joaquín. Renita Ornelas nurse practitioner acting as scribe for signing physician. Objective - Vital Signs Vital signs: Vital Signs Temp 98.2 F 11/01/20 07:50 Pulse 90 11/01/20 12:07 Resp 18 11/01/20 07:50 BP 127/79 11/01/20 07:50 Pulse Ox 94 L 11/01/20 07:50 Intake & Output 10/31/20 11/01/20 11/01/20 18:59 06:59 18:59 Weight 77.2 kg Other: Voiding Method Toilet Toilet Toilet - Labs CBC & Chem 7: 10/31/20 06:20 10/31/20 06:20 Labs: Microbiology - Last 24 Hours (Table) 10/29/20 14:30 Legionella Culture - Preliminary Bronchial Washings - Left 10/25/20 09:44 Blood Culture - Final Blood No Growth after 144 hours 10/29/20 14:30 Gram Stain - Final Bronchoalviolar Lavage - Right Bronchial Washings Culture - Final Escherichia coli
--- NOTE | 2020-11-01 13:10 | P.DS ---
Providers Date of admission: 10/19/20 09:22 Expected date of discharge: 11/01/20 Attending physician: Milind Lebron Consults: 10/19/20 16:29 Consult Physician Routine Consulting Provider: Ed Quezada Consult Reason/Comments: Medical management Do you want consulting provider notified?: Yes 10/26/20 09:52 Consult Physician Routine Consulting Provider: William Kelly Consult Reason/Comments: hypoxia Do you want consulting provider notified?: Yes 11/01/20 10:22 Consult Physician Routine Consulting Provider: Tracey Lewis Consult Reason/Comments: abx recommendation, ESBL Ecoli Do you want consulting provider notified?: Yes Primary care physician: Shayne Cisneros - Discharge Diagnosis(es) (1) Perforated diverticulum of large intestine Patient was admitted for elective colostomy reversal roughly 2 weeks ago. Postoperatively the patient developed fevers and shortness of breath. CAT scan was negative for pulmonary embolism. Patient was also having mild abdominal discomfort and some leukocytosis. CT abdomen was negative for anastomotic leak. She was seen by medicine and pulmonary. She went for a bronchoscopy with lavage and was found to have left-sided pneumonia. She has been on antibiotics. Doing much better at this time. She was seen by infectious disease with plans for outpatient IV antibiotic therapy. She'll be going home on oxygen. Patient with a 20-30 year history of tobacco use. Patient with rightof emphysema in 2019. From a surgical point of view she has done well over the last several days. She did have a small area seroma along the middle aspect of her incision that was drained at the bedside. She is tolerating her diet. Good bowel function. She will follow up in 1 week with myself and will follow-up with both pulmonary and infectious disease post discharge. Current Visit: No Status: Acute Plan - Discharge Summary Discharge Rx Participant: No New Discharge Prescriptions: New Melatonin 10 mg PO HS PRN tablet PRN Reason: Insomnia Nystatin 100,000 Unit/ml Susp [Mycostatin Oral Susp] 500,000 unit PO QID #120 ml Budesonide [Pulmicort] 0.5 mg INHALATION RT-BID #60 dose Ipratropium-Albuterol Nebulize [Duoneb 0.5 mg-3 mg/3 ml Soln] 3 ml INHALATION RT-QID #120 dose Ertapenem [INVanz] 1 gm IVPB Q24H #12 bag Continue amLODIPine BESYLATE [Amlodipine Besylate] 5 mg PO DAILY Pantoprazole [Protonix] 40 mg PO Q48H Cholecalciferol [Vitamin D3 (25 Mcg = 1000 Iu)] 4,000 unit PO DAILY ALPRAZolam [Xanax] 0.5 mg PO DIRECTED PRN PRN Reason: Anxiety Etanercept [Enbrel Sureclick] 50 mg SQ FR #0 Discharge Medication List Pantoprazole [Protonix] 40 mg PO Q48H 12/13/15 [History] amLODIPine BESYLATE [Amlodipine Besylate] 5 mg PO DAILY 12/13/15 [History] Cholecalciferol [Vitamin D3 (25 Mcg = 1000 Iu)] 4,000 unit PO DAILY 07/02/20 [History] ALPRAZolam [Xanax] 0.5 mg PO DIRECTED PRN 10/15/20 [History] Budesonide [Pulmicort] 0.5 mg INHALATION RT-BID #60 dose 11/01/20 [Rx] Ertapenem [INVanz] 1 gm IVPB Q24H #12 bag 11/01/20 [Rx] Etanercept [Enbrel Sureclick] 50 mg SQ FR #0 11/01/20 [Rx] Ipratropium-Albuterol Nebulize [Duoneb 0.5 mg-3 mg/3 ml Soln] 3 ml INHALATION RT-QID #120 dose 11/01/20 [Rx] Melatonin 10 mg PO HS PRN tablet 11/01/20 [Rx] Nystatin 100,000 Unit/ml Susp [Mycostatin Oral Susp] 500,000 unit PO QID #120 ml 11/01/20 [Rx] Follow up Appointment(s)/Referral(s): Milind Lebron MD [Medical Doctor] - 1 Week [facility],Equipment [NON-STAFF] - (*Please call [facility] once home to arrange delivery of the oxygen concentrator. ) [facility],Infusion [NON-STAFF] - Shayne Cisneros DO [Primary Care Provider] - 1 Week William Kelly MD [STAFF PHYSICIAN] - 1 Week Patient Instructions/Handouts: Laparoscopic Colostomy Reversal (DC) Activity/Diet/Wound Care/Special Instructions: Midwife Practitioner is working on setting up an appointment for outpatient IV antibiotics through [facility]: Discharge Disposition: HOME SELF-CARE
[2020-11-01 14:51] VITALS: BP 132/79; PULSE 103; TEMP 98
--- NOTE | 2020-11-01 15:05 | P.PN ---
Subjective Progress Note Date: 11/01/20 Principal diagnosis: Bilateral basal pneumonia left more than right, patient has been adequately covered with Zosyn however given history of MRSA in mouth we will add IV vancomycin as well pending his sputum studies Acute hypoxic respiratory failure Immunosuppressed status Status post reversal of colostomy Electrolyte imbalance with hypokalemia Advanced rheumatoid arthritis Hypertension hypertensive cardiovascular disease Baseline COPD 11/01/2020, patient seen eval examined during the rounds labs reviewed medications reviewed, and history status remains stable, patient is on 4 L oxygen, patient is the getting midline and will be switched to Invanz for ESBL E. coli, likely will be discharged later on today with follow-up in outpatient setting 10/31/2020, patient seen and evaluated examined during the rounds labs reviewed medications reviewed shortness of breath continued to improve but severity has improved as well, predominately present at during exertion, bronchial washing culture reports are pending patient is growing E. coli in the BAL which is ESBL, will DC vancomycin, DC Zosyn, patient will be started on Merrem, with ID on consultation for duration of antibiotics patient has been updated Oct 30 2020, patient seen eval examined during the rounds labs reviewed medications reviewed care plan discussed with the primary service at length, status post a bronchoscopy, patient updated about bronchoscopy finding, patient is feeling slightly better able to say. Sentences however remains on 4 L oxygen, patient remains on IV vancomycin and Zosyn, Gram stain on BAL positive for gram-positive cocci 10/29/2020, patient seen eval examined, nonexertional shortness of breath present, was not able to find the maximal respiratory pressures, assess. Noted again, patient remains on vancomycin and Zosyn, patient scheduled for bronchoscopy later on today, noted that patient is on 4 L oxygen now 10/28/2020, patient seen eval examined during the rounds labs reviewed medications reviewed and still have shortness of breath activity and exertion, patient is scheduled for bronchoscopy for tomorrow to be nothing by mouth after midnight procedure have been explained to the patient, currently on Vanco and Zosyn sputum studies are pending 10/27/2020, patient seen eval examined during the rounds labs reviewed medications reviewed care plan discussed, respiratory status remains stable denies any chest pain but however get short of breath on minimal activity and exertion, remains on supplemental oxygen ongoing cough is present, cooperative provider for sputum Gram stain and culture, patient updated about computed tomography scan finding, remains afebrile hemodynamically stable saturation is 91% 3 L oxygen, labs reviewed white cell count 11,600, I have discussed with her about bronchoscopy and buttock bronchoalveolar lavage early next week Patient is a pleasant 59-year-old female with extensive history of smoking and nicotine use, patient is status post Trang procedure in June for perforated sigmoid diverticulitis admitted for colostomy reversal, performed successfully on 10/19/2020, patient initially was on epidural pain [employer] analgesi a, patient has ongoing shortness of breath which is more pronounced and active during activity and exertion, patient has been on 3 to 5 L nasal cannula L nasal cannula oxygen now lately have been tapered down to 2 L oxygen saturation is 90%, patient has been slightly tachypneic with respiratory rate in high teens and heart rate sinus tachycardia 100 tp 110, chest x-ray performed on October 22 patchy bilateral basal infiltrate more so on the right side compared to left side developing pneumonia cannot be excluded, CAT scan revealed by basilar infiltrate with air bronchogram with emphysema in the upper lobes, no obvious pulmonary embolism seen in the central vasculature, patient white cell count is up to 13,500, labs significant for sodium was 138 potassium 3.4, cold with 19 pneumonia PCR is negative, patient currently on D.O. nab unit dose 4 times a day, also on her antihypertensive agents, DVT prophylaxis, Solu-Medrol 60 mg IV every 6 hourly with Zosyn 3.375 every 8 hourly past medical history significant for GERD hypertension hypertensive cardiovascular disease rheumatoid arthritis and diverticulosis, also had the MRSA infection in cheek area with abscess in June 2020, patient used to smoke heavily about 1 pack per day for 30 years quit about 8 years ago, patient has been getting infusion with Enbrel for rheumatoid arthritis once a week Objective - Vital Signs Vital signs: Vital Signs Temp 98.0 F 11/01/20 14:00 Pulse 103 H 11/01/20 14:00 Resp 18 11/01/20 14:00 BP 132/79 11/01/20 14:00 Pulse Ox 93 L 11/01/20 14:00 Intake & Output 10/31/20 11/01/20 11/01/20 18:59 06:59 18:59 Weight 77.2 kg Other: Voiding Method Toilet Toilet Toilet - Exam - Constitutional General appearance: average body habitus, cooperative, disheveled - EENT Eyes: PERRLA ENT: hearing grossly normal Ears: bilateral: normal - Neck Neck: normal ROM Carotids: bilateral: upstroke normal Thyroid: bilateral: normal size - Respiratory Respiratory: bilateral: rales (Bilateral basal area with bronchial breath sound more so on the left side compared right side), prolonged expiration - Cardiovascular Rhythm: regular Heart sounds: normal: S1, S2 - Gastrointestinal Surgical incision and the scar is stable healing nicely General gastrointestinal: decreased bowel sounds, soft - Integumentary Integumentary: normal turgor - Neurologic Neurologic: CNII-XII intact - Musculoskeletal Musculoskeletal: gait normal, generalized weakness, strength equal bilaterally - Psychiatric Psychiatric: A&O x's 3, appropriate affect, intact judgment & insight - Labs CBC & Chem 7: 10/31/20 06:20 10/31/20 06:20 Labs: Microbiology - Last 24 Hours (Table) 10/29/20 14:30 Legionella Culture - Preliminary Bronchial Washings - Left 10/25/20 09:44 Blood Culture - Final Blood No Growth after 144 hours Assessment and Plan Assessment: E. coli ESBL Bilateral basal pneumonia left more than right, meropenem has been started ID consultation pending Acute hypoxic respiratory failure Immunosuppressed status Status post reversal of colostomy Electrolyte imbalance with hypokalemia Advanced rheumatoid arthritis Hypertension hypertensive cardiovascular disease Baseline COPD Plan: Bronchoscopy and bronchoalveolar lavage reviewed and discussed with primary service as well as the patient at length Continue IV meropenem, obtained midline patient will be discharged on Invanz once daily for 10 days to weeks Recommend deep breathing exercises incentive spirometry Follow-up on bronchoalveolar lavage Continue deep breathing sense incentive spirometry Further plan of care as per clinical response of the patient Time with Patient: Greater than 30
[2020-11-01] MEDS ORDERED: MEROPENEM 1 GM in SODIUM CHLORIDE 0.9% 100 ML IVPB SCH (16:00)
--- NOTE | 2020-11-01 17:26 | CONS ---
CONSULTATION DATE OF SERVICE: 11/01/2020 REASON FOR CONSULTATION: Positive sputum culture with ESBL E coli. HISTORY OF PRESENT ILLNESS: The patient is a 59-year-old female who underwent Trang's procedure in June of 2020 for perforated sigmoid diverticulitis. Postoperatively the patient did well and had a colonoscopy with evidence of no definite abnormality. The patient was admitted to the hospital on October 19, about 2 weeks ago, for reversal of her colostomy. The procedure was performed on 10/19/2020. Since then the patient has been admitted to the hospital for postoperative the patient seemed to have a problem with worsening shortness of breath post procedure. She had a CT angiogram of the chest that was done on 10/24 which showed bibasilar air bronchograms with consolidation, possibly related to bibasilar atelectasis; correlate for pneumonia. It was negative for PE. Patient also had a CT of abdomen and pelvis completed on 10/25 with changes of colostomy reversal, filling of the colon without evidence of a leak or obstruction. The patient has been evaluated by the pulmonary services. She is status post bronchoscopy performed on 10/[address] Kelly. Those cultures are now coming back positive with ESBL E coli. The patient was started on meropenem. Infectious Disease was consulted for further management of antibiotic therapy. The patient was noted on my evaluation to be afebrile. The patient mentioned she is breathing slightly comfortably compared to a few days ago, and the patient did have a fever on 10/24 and 10/25. The patient also has an elevated white count which was up to 17.91 on 10/29 and subsequently normalized. The patient did have a cough with occasional sputum production, moderate in intensity. No hemoptysis. The patient denies having any nausea. No vomiting. No abdominal pain or diarrhea. REVIEW OF SYSTEMS: Positive points have been mentioned in the HPI. Rest of the systems are negative. PAST MEDICAL HISTORY: Perforated diverticulitis. The patient did have a facial abscess and cellulitis. Hypertension PAST SURGICAL HISTORY: Joint replacement, knee surgery x 9, left knee replaced, previous hysterectomy and diverting colostomy. SOCIAL HISTORY: Remote history of smoking. Occasionally drinks. No drug use. FAMILY HISTORY: Mother with history of diabetes and hypertension. ALLERGIES: HYDROCODONE. MEDICATIONS: The patient is currently on Tylenol, DuoNeb, Xanax, [place], Cepacol lozenges, Pulmicort, hydralazine, melatonin, meropenem 1 gram q.8 hours. She is on Reglan, Narcan, Zofran, Protonix, Restoril. PHYSICAL EXAMINATION: Blood pressure 132/79, pulse of 102, temperature 98. She is 93% on 4 L nasal cannula. General description is a middle-aged female up in the bed in no distress. No tachypnea or accessory muscle of respiration use. HEENT: Examination shows slight pallor. No scleral icterus. Oral mucous membrane is dry. NECK: Trachea is central. No thyromegaly. LUNGS: Unlabored breathing. Decreased breath sounds. No wheeze. HEART: S1, S2. Regular rate and rhythm. ABDOMEN: Soft. No tenderness. No guarding or rigidity. EXTREMITIES: No edema of the feet. SKIN EXAMINATION: No rash or mass palpable. Neurologically the patient is awake, alert, oriented x3. Mood and affect normal. LABS: Hemoglobin is 11.3, white count of 12.9, BUN of 9, creatinine 0.61. Electrolytes have been normal. Liver enzymes are normal. CT angiogram of the chest and CT of abdomen and pelvis reports as mentioned above. DIAGNOSTIC IMPRESSION AND PLAN: Patient admitted to hospital for colostomy reversal in this patient who did have a fever on 10/24 and 10/25, did have elevated white count. CT did show evidence of right basilar consolidation, more on the left side in this patient who is status post bronchoscopy with cultures of extended-spectrum beta-lactamase with concern for possible aspiration pneumonia pathogen. PLAN: 1. Antibiotic can be switched over to Invanz 1 gram daily for a total of 2 weeks, for which a midline will be placed. 2. Once antibiotic is arranged, she will be able to go home and close outpatient followup. Thank you for this consultation. Will follow this patient along with you. MMODL / IJN: [id number] / MTDZuhair
--- NOTE | 2020-11-02 14:42 | CDI ---
Documentation Clarification Form Date: 11/02/2020 02:19:39 PM From: Erica Burgos RN, CCDS Admit Date: 10/19/2020 09:22:00 AM Patient Name: Anabella Siddiqi Visit Number: [id number] Discharge Date: 11/01/2020 03:54:00 PM ATTENTION: The Clinical Documentation Specialists (CDI) and [facility] Coding Staff appreciate your assistance in clarifying documentation. Please respond to the clarification below the line at the bottom and electronically sign. The CDI & [facility] Coding staff will review the response and follow-up if needed. Please note: Queries are made part of the Legal Health Record. If you have any questions, please contact the author of this message via ITS. Dr. Milind Lebron Seroma is documented 11/01/2020 in the Surgical D/C Summary and patient had Colostomy reversal, mobilization splenic flexure on 10/19/2020. Additional clarification is requested regarding the relationship, if any, that exists between the diagnosis and the procedure. Patients Admitting Diagnosis: Attention to colostomy Post-Operative Diagnosis: same Procedure performed: Colostomy reversal, mobilization splenic flexure History/Risk Factors: Status post colostomy reversal, mobilization of splenic flexure. Patient is status post bronchoscopy, post-op ileus resolved, HTN CVD, RA, chronically immunosuppressed, acute hypoxic respiratory failure and possible gram-negative pneumonia, chronic hypoxic respiratory failure with home O2 Clinical Indicators: 11/01 D/C Summary: "She did have a small area seroma along the middle aspect of her incision that was drained at the bedside." Treatment: 11/01 Bedside drainage or Seroma 514 Cefazolin 2gm IVPB OT Pre-op 10/23 Ceftriaxone 2gm IVPB Q 24 hrs. 10/31-11/01 Meropenem 1gm IVPB Q 8 hrs. 10/26-10/31 Vanco 1250mg IVPB Q 8hrs What relationship, if any, exists between the diagnosis of [insert dx] and the procedure? [ ] Seroma is a complication of surgical procedure [X] Seroma is an expected outcome of the surgical procedure [ ] Seroma is related to patients co-morbid condition(s) of (please specify) & not a complication of the procedure [ ] Seroma has been ruled out [ ] Other please specify ____ [ ] Unable to determine (Template Last Revised: August 2020) MTDD
== END 2020-11-01 15:54 | disposition home or self-care (01) | DRG 329 ==
LOC: 2ORMAIN 09:22 → 4SSUR 16:57
PROVIDERS: ADMIT Surgery; ATTEND Surgery
PROC: 0DQN0ZZ Repair Sigmoid Colon, Open Approach (ICD-10-PCS; principal; 2020-10-19 11:05)
PROC: 0WQF0ZZ Repair Abdominal Wall, Open Approach (ICD-10-PCS; principal; 2020-10-19 11:05)
PROC: 0DQP0ZZ Repair Rectum, Open Approach (ICD-10-PCS; principal; 2020-10-19 11:05)
PROC: 0DQL0ZZ Repair Transverse Colon, Open Approach (ICD-10-PCS; principal; 2020-10-19 11:05)
PROC: 05HC33Z Insertion of Infusion Device into Left Basilic Vein, Percutaneous Approach (ICD-10-PCS; 2020-10-25)
PROC: 0BCJ8ZZ Extirpation of Matter from Left Lower Lung Lobe, Via Natural or Artificial Opening Endoscopic (ICD-10-PCS; 2020-10-29)
PROC: 0BCF8ZZ Extirpation of Matter from Right Lower Lung Lobe, Via Natural or Artificial Opening Endoscopic (ICD-10-PCS; 2020-10-29)
PROC: 0H97XZZ Drainage of Abdomen Skin, External Approach (ICD-10-PCS; 2020-10-30)
DX: Z43.3 Encounter for attention to colostomy (principal); J96.01 Acute respiratory failure with hypoxia; J15.5 Pneumonia due to Escherichia coli; D84.9 Immunodeficiency, unspecified; J68.0 Bronchitis and pneumonitis due to chemicals, gases, fumes and vapors; K56.7 Ileus, unspecified; K57.32 Diverticulitis of large intestine without perforation or abscess without bleeding; N39.0 Urinary tract infection, site not specified; Z16.12 Extended spectrum beta lactamase (ESBL) resistance; J98.11 Atelectasis; L76.34 Postprocedural seroma of skin and subcutaneous tissue following other procedure; I11.9 Hypertensive heart disease without heart failure; J43.9 Emphysema, unspecified; M06.9 Rheumatoid arthritis, unspecified; Z20.822 Contact with and (suspected) exposure to COVID-19; K43.5 Parastomal hernia without obstruction or gangrene; B95.2 Enterococcus as the cause of diseases classified elsewhere; E87.6 Hypokalemia; I25.10 Atherosclerotic heart disease of native coronary artery without angina pectoris; K21.9 Gastro-esophageal reflux disease without esophagitis; M15.9 Polyosteoarthritis, unspecified; F41.9 Anxiety disorder, unspecified; Z79.899 Other long term (current) drug therapy; Z87.891 Personal history of nicotine dependence; Z86.14 Personal history of Methicillin resistant Staphylococcus aureus infection; Z96.652 Presence of left artificial knee joint; Z90.710 Acquired absence of both cervix and uterus; Z90.49 Acquired absence of other specified parts of digestive tract; Z87.39 Personal history of other diseases of the musculoskeletal system and connective tissue; Z86.19 Personal history of other infectious and parasitic diseases; Z97.8 Presence of other specified devices; Z86.59 Personal history of other mental and behavioral disorders; Z98.890 Other specified postprocedural states; Z88.5 Allergy status to narcotic agent; Y92.230 Patient room in hospital as the place of occurrence of the external cause; Z84.89 Family history of other specified conditions; Z83.3 Family history of diabetes mellitus; Z82.49 Family history of ischemic heart disease and other diseases of the circulatory system; Z84.1 Family history of disorders of kidney and ureter
CPT/HCPCS: 31624; 36410; 71046; 71275; 74176; 76937; 80048; 80053; 80076; 80202; 81003; 82565; 83605; 83880; 84132; 85025; 85027; 86850; 86900; 86901; 87040; 87070; 87077; 87086; 87102; 87116; 87186; 87205; 87206; 87252; 87496; 87498; 87502; 87529; 87634; 87635; 87798; 88108; 88304; 88305; 93306; 94640

== ENCOUNTER 2020-11-26 09:54 | Emergency (ER) | payer MEDICAID ==
[2020-11-26 10:10] VITALS: TEMP 98.3
[2020-11-26] MEDS ORDERED: SODIUM CHLORIDE 0.9% 1,000 ML IV STA ×2 (10:36→11:37)
[2020-11-26] MEDS ORDERED: ALPRAZolam 0.25 MG TAB PO STA (10:40)
--- NOTE | 2020-11-26 10:40 | ED ---
General Adult HPI - General Chief complaint: Recheck/Abnormal Lab/Rx Stated complaint: PostOp/Rt Rib Pain Source: patient, RN notes reviewed Mode of arrival: ambulatory Limitations: no limitations - History of Present Illness Initial comments: 59-year-old female patient, alert and oriented 4, presents to the emergency room with complaints of right upper abdominal pain. Patient states she has a history of a bowel perforation back in June which led to a colostomy that was done by Dr. ren. She states that she had a bowel resection reversal on October 19 but has been complaining of right upper abdominal pain under her ribs since November 04. Patient states that she had a bowel movement today that was bright red in color. It was painless. She does have a history of diverticulosis, hypertension or and anxiety. Patient is tearful and scared because this is the same pain that she felt when she had the bowel perforation. Patient denies any pain at this time or shortness of breath. States that the pain and the right ribs is worse when she sits up or moves. Patient is a nonsmoker. Does not drink on a daily basis. Patient did call Dr. Shayne Lockhart was told to come to the emergency room for evaluation. Patient does deny fevers temperature of 98 3 years she is tachycardic at 121 but tearful and anxious. Her blood pressure is 144/103 oxygen saturation is 98% -: month(s) (1) Location: abdomen (Right upper quadrant) Radiation: non-radiation Severity scale (1-10): 1 Consistency: constant Associated Symptoms: other (Brick red colored stool today) - Related Data Home Medications Medication Instructions Recorded Confirmed Pantoprazole [Protonix] 40 mg PO DAILY 12/13/15 11/26/20 amLODIPine BESYLATE [Amlodipine 5 mg PO DAILY 12/13/15 11/26/20 Besylate] Cholecalciferol [Vitamin D3 (25 100 mcg PO DAILY 07/02/20 11/26/20 Mcg = 1000 Iu)] ALPRAZolam [Xanax] 2 mg PO BID PRN 11/26/20 11/26/20 Ipratropium-Albuterol Nebulize 3 ml INHALATION RT-QID PRN 11/26/20 11/26/20 [Duoneb 0.5 mg-3 mg/3 ml Soln] Previous Rx's Medication Instructions Recorded Budesonide [Pulmicort] 0.5 mg INHALATION RT-BID #60 dose 11/01/20 Etanercept [Enbrel Sureclick] 50 mg SQ FR #0 11/01/20 Allergies Allergy/AdvReac Type Severity Reaction Status Date / Time hydrocodone [From Vicodin] AdvReac Unknown sweating,blood Verified 11/26/20 13:52 pressure,n&v,dizziness oxycodone [From Percocet] AdvReac Unknown sweating,bloodpressure Verified 11/26/20 13:52 drops,n/v, dizziness hydromorphone [From Dilaudid] AdvReac sweating, Verified 11/26/20 13:52 blood pressure dropped, n/v,dizziness Patient : No Review of Systems ROS Statement: Those systems with pertinent positive or pertinent negative responses have been documented in the HPI. ROS Other: All systems not noted in ROS Statement are negative. Past Medical History Past Medical History: GERD/Reflux, Hypertension, Pneumonia, Rheumatoid Arthritis (RA) Additional Past Medical History / Comment(s): DIVERTICULOSIS, perforated bowel, facial cellulitis History of Any Multi-Drug Resistant Organisms: ESBL, MRSA Date of last positivie culture/infection: 10/29/20 ESBL 10/05/20 MRSA MDRO Source:: ESBL BRONCH, MRSA FACE Past Surgical History: Joint Replacement, Orthopedic Surgery Additional Past Surgical History / Comment(s): KNEE SURGERIES LEFT X 9, left knee replaced, D & C, hysterectomy,. COLECTOMY with reversile Past Anesthesia/Blood Transfusion Reactions: No Reported Reaction, Family History of Problems w/ Anesthesia Additional Past Anesthesia/Blood Transfusion Reaction / Comment(s): daughter passed out after wisdom teeth removed Past Psychological History: Anxiety, Depression Smoking Status: Former smoker Past Alcohol Use History: None Reported Past Drug Use History: None Reported - Past Family History Mother Family Medical History: Diabetes Mellitus, Hypertension Father Family Medical History: Hypertension, Renal Disease Brother(s) Family Medical History: Diabetes Mellitus Sister(s) Family Medical History: Diabetes Mellitus Daughter(s) Family Medical History: No Reported History Son(s) Family Medical History: No Reported History General Exam Limitations: no limitations General appearance: alert, in no apparent distress Head exam: Present: atraumatic, normocephalic, normal inspection Eye exam: Present: normal appearance, PERRL, EOMI. Absent: scleral icterus, conjunctival injection, periorbital swelling Pupils: Present: normal accommodation ENT exam: Present: normal exam, normal oropharynx, mucous membranes moist Neck exam: Present: normal inspection, full ROM. Absent: tenderness, meningismus, lymphadenopathy, thyromegaly Respiratory exam: Present: normal lung sounds bilaterally. Absent: respiratory distress, wheezes, rales, rhonchi, stridor, chest wall tenderness, accessory muscle use, decreased breath sounds, prolonged expiratory Cardiovascular Exam: Present: tachycardia GI/Abdominal exam: Present: soft, normal bowel sounds. Absent: distended, tenderness, guarding, rebound, rigid Extremities exam: Present: normal inspection, full ROM, normal capillary refill. Absent: tenderness, pedal edema, joint swelling, calf tenderness Back exam: Present: normal inspection, full ROM. Absent: tenderness, CVA te nderness (R), CVA tenderness (L), muscle spasm, paraspinal tenderness, vertebral tenderness, rash noted Neurological exam: Present: alert, oriented X3, CN II-XII intact Psychiatric exam: Present: normal affect, anxious, other (Tearful and scared) Skin exam: Present: warm, dry, intact, normal color. Absent: rash Course Vital Signs 11/26/20 10:03 Temperature 98.3 F Pulse Rate 121 H Respiratory 18 Rate Blood Pressure 144/103 O2 Sat by Pulse 98 Oximetry Medical Decision Making - Medical Decision Making KUB x-ray shows no free air and no obstruction. There is a left renal calculi that has been known since November 01 millimeters. Lactic acid is 3.0 patient was given 2 L of IV fluids. WBC count 6.8, hemoglobin and hematocrit is stable at 15 and 43. ALT and AST are [address] shows possible small fluid collection along the inferior aspect of the anastomosis possibly postop seroma as patient does not have a white count of fever. There is a 6 mm nonobstructive left renal calculus the patient is aware of. She is well- appearing. States that she was just anxious based on her history and wanted reassurance CT was normal.. She is instructed to follow-up with her primary care doctor and her surgeon Dr. Lebron as scheduled, return if worsening abdominal pain, fevers nausea vomiting. Patient is agreeable to being discharged. Discussed with Dr. Bella was agreeable to discharge. - Lab Data Result diagrams: 11/26/20 10:51 11/26/20 10:51 Lab Results 11/26/20 11/26/20 11/26/20 Range/Units 10:51 10:51 10:51 WBC 6.8 (3.8-10.6) k/uL RBC 5.00 (3.80-5.40) m/uL Hgb 15.1 D (11.4-16.0) gm/dL Hct 43.5 (34.0-46.0) % MCV 87.0 (80.0-100.0) fL MCH 30.2 (25.0-35.0) pg MCHC 34.7 (31.0-37.0) g/dL RDW 13.8 (11.5-15.5) % Plt Count 265 (150-450) k/uL MPV 7.7 Neutrophils % 63 % Lymphocytes % 26 % Monocytes % 5 % Eosinophils % 4 % Basophils % 1 % Neutrophils # 4.3 (1.3-7.7) k/uL Lymphocytes # 1.8 (1.0-4.8) k/uL Monocytes # 0.3 (0-1.0) k/uL Eosinophils # 0.2 (0-0.7) k/uL Basophils # 0.1 (0-0.2) k/uL PT 10.1 (9.0-12.0) sec INR 0.9 (<1.2) APTT 21.4 L (22.0-30.0) sec Sodium 144 (137-145) mmol/L Potassium 4.7 (3.5-5.1) mmol/L Chloride 108 H (98-107) mmol/L Carbon Dioxide 25 (22-30) mmol/L Anion Gap 11 mmol/L BUN 7 (7-17) mg/dL Creatinine 0.61 (0.52-1.04) mg/dL Est GFR (CKD-EPI)AfAm >90 (>60 ml/min/1.73 sqM) Est GFR (CKD-EPI)NonAf >90 (>60 ml/min/1.73 sqM) Glucose 137 H (74-99) mg/dL Lactic Ac Sepsis Rflx Plasma Lactic Acid [place] (0.7-2.0) mmol/L Calcium 10.1 (8.4-10.2) mg/dL Total Bilirubin 1.0 (0.2-1.3) mg/dL AST 39 H (14-36) U/L ALT 37 H (4-34) U/L Alkaline Phosphatase 124 (38-126) U/L Total Protein 8.1 (6.3-8.2) g/dL Albumin 4.8 (3.5-5.0) g/dL Amylase 66 (30-110) U/L Lipase 144 (23-300) U/L 11/26/20 11/26/20 Range/Units 10:51 11:25 WBC (3.8-10.6) k/uL RBC (3.80-5.40) m/uL Hgb (11.4-16.0) gm/dL Hct (34.0-46.0) % MCV (80.0-100.0) fL MCH (25.0-35.0) pg MCHC (31.0-37.0) g/dL RDW (11.5-15.5) % Plt Count (150-450) k/uL MPV Neutrophils % % Lymphocytes % % Monocytes % % Eosinophils % % Basophils % % Neutrophils # (1.3-7.7) k/uL Lymphocytes # (1.0-4.8) k/uL Monocytes # (0-1.0) k/uL Eosinophils # (0-0.7) k/uL Basophils # (0-0.2) k/uL PT (9.0-12.0) sec INR (<1.2) APTT (22.0-30.0) sec Sodium (137-145) mmol/L Potassium (3.5-5.1) mmol/L Chloride (98-107) mmol/L Carbon Dioxide (22-30) mmol/L Anion Gap mmol/L BUN (7-17) mg/dL Creatinine (0.52-1.04) mg/dL Est GFR (CKD-EPI)AfAm (>60 ml/min/1.73 sqM) Est GFR (CKD-EPI)NonAf (>60 ml/min/1.73 sqM) Glucose (74-99) mg/dL Lactic Ac Sepsis Rflx Y Plasma Lactic Acid [place] 3.0 H* (0.7-2.0) mmol/L Calcium (8.4-10.2) mg/dL Total Bilirubin (0.2-1.3) mg/dL AST (14-36) U/L ALT (4-34) U/L Alkaline Phosphatase (38-126) U/L Total Protein (6.3-8.2) g/dL Albumin (3.5-5.0) g/dL Amylase (30-110) U/L Lipase (23-300) U/L Disposition Clinical Impression: Abdominal pain Disposition: HOME SELF-CARE Condition: Good Instructions (If sedation given, give patient instructions): Abdominal Pain (ED) Additional Instructions: Return to the emergency room with worsening pain, fevers, ability keep fluids down. Up with the primary care doctor as week Is patient prescribed a controlled substance at d/c from ED?: No Referrals: Shayne Cisneros DO [Primary Care Provider] - 1-2 days Time of Disposition: 14:45
[2020-11-26 11:05] LABS: Basophils # (A) 0.1 k/uL (0-0.2); Basophils % (A) 1 %; Eosinophils # (A) 0.2 k/uL (0-0.7); Eosinophils % (A) 4 %; HCT 43.5 % (34.0-46.0); Lymphocytes # (A) 1.8 k/uL (1.0-4.8); Lymphocytes % (A) 26 %; MCH 30.2 pg (25.0-35.0); MCHC 34.7 g/dL (31.0-37.0); Mean Platelet Volume 7.7; Monocytes # (A) 0.3 k/uL (0-1.0); Monocytes % (A) 5 %; Neutrophils # (A) 4.3 k/uL (1.3-7.7); Neutrophils % (A) 63 %; Platelet Count 265 k/uL (150-450); RDW 13.8 % (11.5-15.5); WBC 6.8 k/uL (3.8-10.6)
[2020-11-26 11:16] LABS: ALT 37 U/L (4-34); AST 39 U/L (14-36); African American GFR (CKD) >90 (>60 ml/min/1.73 sqM); Albumin 4.8 g/dL (3.5-5.0); Alkaline Phosphatase 124 U/L (38-126); Amylase 66 U/L (30-110); Anion Gap 11 mmol/L; Blood Urea Nitrogen 7 mg/dL (7-17); Calcium 10.1 mg/dL (8.4-10.2); Carbon Dioxide 25 mmol/L (22-30); Chloride 108 mmol/L (98-107); Glucose 137 mg/dL (74-99); Lipase 144 U/L (23-300); Non-African American GFR(CKD) >90 (>60 ml/min/1.73 sqM); Potassium 4.7 mmol/L (3.5-5.1); Sodium 144 mmol/L (137-145); Total Protein 8.1 g/dL (6.3-8.2)
--- NOTE | 2020-11-26 11:40 | XR ---
EXAMINATION TYPE: XR KUB DATE OF EXAM: 11/26/2020 Comparison: CT 10/25/2020 Clinical History: 59-year-old female abdominal pain Findings: Band of atelectasis at the left base. No evidence for free intraperitoneal air. No dilated small bowel or air-fluid levels. Numerous left-sided pelvic phleboliths. A 7 mm calcification in the left mid abdomen. No significant stool burden. Scattered air is present in the colon extending distally to the rectum. Impression: No evidence for free air or bowel obstruction. No significant stool burden. Known 7 mm left renal mahesh culus.
[2020-11-26 11:48] LABS: HGB 15.1 gm/dL (11.4-16.0)
[2020-11-26 11:57] LABS: INR 0.9 (<1.2); Prothrombin Time 10.1 sec (9.0-12.0)
[2020-11-26 12:07] LABS: Partial Thromboplastin Time 21.4 sec (22.0-30.0)
--- NOTE | 2020-11-26 13:10 | CT ---
EXAMINATION TYPE: CT abdomen pelvis w con DATE OF EXAM: 11/26/2020 COMPARISON: 10/25/2020 HISTORY: 59-year-old female Colectomy reversal 10-19-20, right upper quadrant pain since 11-04-20. TECHNIQUE: Contiguous axial scanning of the abdomen and pelvis following administration of 100 ml Iso patti 300 IV contrast. Delayed images through the kidneys and coronal/sagittal reconstructions perform ed. CT DLP: 867.8 mGycm Automated exposure control for dose reduction was used. FINDINGS: Heart normal size without pericardial effusion. Dominant bands of opacity remain at the lung bases bu t with improvement in aeration as compared to prior exam. No pleural effusion. Low attenuation of the hepatic parenchyma. Portal venous system is patent. No biliary ductal dilatati on. Gallbladder, adrenal glands, spleen, right kidney, and pancreas within normal limits. 6 mm nonobstruc tive left renal calculus. Moderate atherosclerotic calcifications infrarenal abdominal aorta. Post laparotomy scar along the anterior midline. No dilated small bowel, free fluid, or free air. No mesenteric or retroperitoneal lymphadenopathy. Evidence of prior partial left colonic resection and reanastomosis at the level of the distal sigmoid . There appears to be a focal fluid collection along the inferior aspect of the anastomosis measuring 2.9 x 1.9 cm, axial image 70 and coronal image 61. Pelvic phlebolith. No pelvic lymphadenopathy seen . Bladder partially urine distended. Uterus surgically absent. Neither ovary clearly seen. Bones moderate degenerative change at the hips. Facet arthropathy mid to lower lumbar spine. IMPRESSION: 1. REDEMONSTRATED DISTAL SIGMOID RESECTION AND REANASTOMOSIS. THERE IS A POSSIBLE FOCAL FLUID COLLECT ION ALONG THE INFERIOR ASPECT OF THE ANASTOMOSIS MEASURING 2.9 X 1.9 CM. A POSTOPERATIVE SEROMA OR SM ALL ABSCESS ARE DIFFICULT TO EXCLUDE. IF THIS REGION IS ASYMPTOMATIC, CONSIDER SHORT INTERVAL FOLLOW- UP CT TO REASSESS. 2. LOW-ATTENUATION OF THE LIVER COULD REFLECT HEPATIC STEATOSIS OR HEPATITIS. CLINICALLY CORRELATE. 3. 6 MM NONOBSTRUCTIVE LEFT RENAL CALCULUS.
[2020-11-26 14:20] LABS: Appearance,Urine Clear (Clear); Bilirubin,Urine Negative (Negative); Blood,Urine Negative (Negative); Color,Urine Light Yellow; Glucose,Urine (UA) Negative (Negative); Ketones,Urine 1+ (Negative); Leukocyte Esterase,Urine Large (Negative); Mucus,Urine Rare /hpf; Nitrite,Urine Negative (Negative); PH, Urine 6.5 (5.0-8.0); Protein,Urine Negative (Negative); RBC,Urine <1 /hpf (0-5); Specific Gravity,Urine 1.031 (1.001-1.035); Squamous Epithelial Cell,Urine 3 /hpf (0-4); Urobilinogen,Urine <2.0 mg/dL (<2.0); WBC,Urine 14 /hpf (0-5)
[2020-11-26 15:23] VITALS: BP 118/71; PULSE 67; RESP 16
== END 2020-11-26 15:22 | disposition home or self-care (01) ==
LOC: EC 09:54
DX: N20.0 Calculus of kidney (principal); I10 Essential (primary) hypertension; K21.9 Gastro-esophageal reflux disease without esophagitis; M06.9 Rheumatoid arthritis, unspecified; F32.9 Major depressive disorder, single episode, unspecified; F41.9 Anxiety disorder, unspecified; Z79.51 Long term (current) use of inhaled steroids; Z79.899 Other long term (current) drug therapy; Z82.49 Family history of ischemic heart disease and other diseases of the circulatory system; Z83.3 Family history of diabetes mellitus; Z87.891 Personal history of nicotine dependence; Z88.5 Allergy status to narcotic agent; Z90.710 Acquired absence of both cervix and uterus; Z93.3 Colostomy status
CPT/HCPCS: 96360 ×2; 96361 ×2; 99284 ×2; 36415; 80053; 82150; 83605; 83690; 85025; 85610; 85730; 81001; 87086; 87077; 87186; 74018; 74177; Q9967

== ENCOUNTER → 2020-12-05 | Outpatient (CLI) | payer MEDICAID ==
[2020-12-05 11:40] LABS: Basophils # (A) 0.05 X 10*3/uL (0.00-0.10); Basophils % (A) 0.8 %; Eosinophils # (A) 0.33 X 10*3/uL (0.04-0.35); Eosinophils % (A) 5.4 %; HGB 14.4 g/dL (12.0-15.0); Lymphocytes # (A) 2.78 X 10*3/uL (0.90-5.00); Lymphocytes % (A) 45.2 %; MCH 29.3 pg (27.0-32.0); MCV 91.5 fL (80.0-97.0); Mean Platelet Volume 10.2 fL (9.5-12.2); Monocytes # (A) 0.55 X 10*3/uL (0.20-1.00); Monocytes % (A) 8.9 %; Neutrophils # (A) 2.43 X 10*3/uL (1.80-7.70); Neutrophils % (A) 39.5 %; Platelet Count 291 X 10*3/uL (140-440); RBC 4.92 X 10*6/uL (4.10-5.20); RDW 14.5 % (11.5-14.5); WBC 6.15 X 10*3/uL (4.50-10.00)
[2020-12-05 13:29] LABS: African American GFR (CKD) 81.7 (60.0-200.0); BUN/Creat Ratio 11.11 Ratio (12.00-20.00); C Reactive Protein <0.4 mg/dL (0.0-0.8); Calcium 9.9 mg/dL (8.7-10.3); Chloride 111 mmol/L (96-109); Glucose 110 mg/dL (70-110); Non-African American GFR(CKD) 70.5 (60.0-200.0); Potassium 4.7 mmol/L (3.5-5.5); Sodium 142 mmol/L (135-145)
== END | disposition home or self-care (01) ==
LOC: LABWHC1 08:02
PROVIDERS: ATTEND Internal Medicine Infectious Disease
DX: A41.9 Sepsis, unspecified organism (principal)
CPT/HCPCS: 36415; 80048; 85025; 86140; 87040

== ENCOUNTER → 2021-01-04 | Outpatient (CLI) | payer MEDICAID ==
--- NOTE | 2021-01-04 14:53 | XR ---
EXAMINATION TYPE: XR chest 2V DATE OF EXAM: 01/04/2021 COMPARISON: 10/27/2020 HISTORY: Shortness of breath TECHNIQUE: Frontal and lateral views of the chest are obtained. FINDINGS: Scattered senescent parenchymal changes noted. Hyperinflation compatible with COPD. No evidence for infiltrate. No evidence for atelectasis. Heart size is stable. Mediastinal structures are stable and grossly unremarkable. No evidence for hilar prominence. Degenerative changes dorsal spine. IMPRESSION: 1. No evidence for acute pulmonary disease.
== END | disposition home or self-care (01) ==
LOC: RADXRMAIN 14:07
PROVIDERS: ATTEND Internal Medicine Sleep Medicine
DX: R91.8 Other nonspecific abnormal finding of lung field (principal)
CPT/HCPCS: 71046

== ENCOUNTER → 2021-02-21 | Outpatient (CLI) | payer MEDICAID ==
--- NOTE | 2021-02-21 13:21 | CT ---
EXAMINATION TYPE: CT abdomen pelvis wo con DATE OF EXAM: 02/21/2021 HISTORY: Kidney stones vs Diverticulitis. Left lower quadrant pain started 4 days ago. History of col ostomy July 06, 2020 due to colonic perforation with reversal surgery October 19. CT DLP: 804 mGycm. Automated Exposure Control for Dose Reduction was Utilized. TECHNIQUE: CT scan of the abdomen and pelvis is performed with oral but without IV contrast. COMPARISON: Abdomen and pelvis November 26, 2020 FINDINGS: Within the limitations of a non-contrast study, the following observations are made. LUNG BASES: Coronary artery calcification redemonstrated.. LIVER/GB: No significant abnormality is appreciated. PANCREAS: No significant abnormality is seen. SPLEEN: No significant abnormality is seen. ADRENALS: No significant abnormality is seen. KIDNEYS: No renal stones seen bilaterally. No right-sided hydronephrosis or obstructing ureter calcul i. Left kidney shows interval passage of prior visualized calculus measuring 9 mm long axis coronal i mage 49 into the proximal left ureter causing mild left-sided hydronephrosis. BOWEL: Normal contrast-filled appendix. No suspicious small or large bowel dilatation. Oral contrast extends to rectum. Surgical sutures sigmoid rectal colon level axial image 75 redemonstrated. GENITAL ORGANS: Uterus is redemonstrated surgically absent or markedly atrophic. Scattered pelvic phl eboliths redemonstrated. LYMPH NODES: No greater than 1cm abdominal or pelvic lymph nodes are appreciated. OSSEOUS STRUCTURES: Moderate axial joint space loss in both hips. OTHER: Mild to moderate calcified plaque of the aorta extends into branch vessels. IMPRESSION: Interval passage of left renal calculus. This stone measures 9 mm long axis current study causing mild left-sided hydronephrosis
== END | disposition home or self-care (01) ==
LOC: RADCTMAIN 09:26
PROVIDERS: ATTEND Surgery
DX: N13.2 Hydronephrosis with renal and ureteral calculous obstruction (principal)
CPT/HCPCS: 74176

== ENCOUNTER 2021-02-22 14:18 | Inpatient (IN) | payer MEDICAID ==
[2021-02-22] MEDS ORDERED: KETOROLAC 15 MG/ML 1 ML VIAL IVP STA (15:17)
[2021-02-22] MEDS ORDERED: SODIUM CHLORIDE 0.9% 1,000 ML IV STA (15:17)
[2021-02-22] MEDS ORDERED: fentaNYL (PF) 50 MCG/ML 2 ML AMP IVP STA (15:20)
--- NOTE | 2021-02-22 15:23 | ED ---
General Adult HPI - General Chief complaint: Urogenital Stated complaint: Side/Back Pain Time Seen by Provider: 02/22/21 15:13 Source: patient, RN notes reviewed, old records reviewed Mode of arrival: ambulatory Limitations: no limitations - History of Present Illness Initial comments: 60-year-old white female presents to the emergency room with complaints of left flank pain radiated into her left lower abdomen and groin. Patient states that she was diagnosed with kidney stone 9 mm on February 21. Today she was at the urologists office and he scheduled for surgery next week but she suddenly developed increasing pain after leaving the office today. She describes it as sharp in nature. She denies any nausea vomiting or fevers. She denies any hematuria. -: days(s) (1) Location: abdomen (Left lower) Radiation: flank Severity scale (1-10): 10 Quality: sharp Consistency: constant Improves with: none Associated Symptoms: denies other symptoms - Related Data Home Medications Medication Instructions Recorded Confirmed Pantoprazole [Protonix] 40 mg PO DAILY 12/13/15 02/22/21 amLODIPine BESYLATE [Amlodipine 5 mg PO DAILY 12/13/15 02/22/21 Besylate] Cholecalciferol [Vitamin D3 (25 50 mcg PO DAILY 07/02/20 02/22/21 Mcg = 1000 Iu)] ALPRAZolam [Xanax] 2 mg PO BID PRN 11/26/20 02/22/21 Albuterol Inhaler [Ventolin Hfa 2 puff INHALATION RT-Q4H PRN 02/22/21 02/22/21 Inhaler] FLUoxetine HCL [PROzac] 20 mg PO DAILY 02/22/21 02/22/21 Previous Rx's Medication Instructions Recorded Etanercept [Enbrel Sureclick] 50 mg SQ FR #0 11/01/20 Allergies Allergy/AdvReac Type Severity Reaction Status Date / Time hydrocodone [From Vicodin] AdvReac Unknown sweating,blood Verified 02/22/21 17:49 pressure,n&v,dizziness oxycodone [From Percocet] AdvReac Unknown sweating,bloodpressure Verified 02/22/21 17:49 drops,n/v, dizziness fentanyl AdvReac Vomiting Verified 02/22/21 17:49 hydromorphone [From Dilaudid] AdvReac sweating, Verified 02/22/21 17:49 blood pressure dropped, n/v,dizziness Review of Systems ROS Statement: Those systems with pertinent positive or pertinent negative responses have been documented in the HPI. ROS Other: All systems not noted in ROS Statement are negative. Past Medical History Past Medical History: GERD/Reflux, Hypertension, Pneumonia, Rheumatoid Arthritis (RA) Additional Past Medical History / Comment(s): DIVERTICULOSIS, perforated bowel, facial cellulitis History of Any Multi-Drug Resistant Organisms: ESBL, MRSA Date of last positivie culture/infection: 11/26/20 ESBL 10/05/20 MRSA MDRO Source:: ESBL URINE, MRSA FACE Past Surgical History: Joint Replacement, Orthopedic Surgery Additional Past Surgical History / Comment(s): KNEE SURGERIES LEFT X 9, left knee replaced, D & C, hysterectomy,. COLECTOMY with reversile Past Anesthesia/Blood Transfusion Reactions: No Reported Reaction, Family History of Problems w/ Anesthesia Additional Past Anesthesia/Blood Transfusion Reaction / Comment(s): daughter passed out after wisdom teeth removed Past Psychological History: Anxiety, Depression Smoking Status: Former smoker Past Alcohol Use History: None Reported Past Drug Use History: None Reported - Past Family History Mother Family Medical History: Diabetes Mellitus, Hypertension Father Family Medical History: Hypertension, Renal Disease Brother(s) Family Medical History: Diabetes Mellitus Sister(s) Family Medical History: Diabetes Mellitus Daughter(s) Family Medical History: No Reported History Son(s) Family Medical History: No Reported History General Exam Limitations: no limitations General appearance: alert, in no apparent distress Head exam: Present: atraumatic, normocephalic, normal inspection Eye exam: Present: normal appearance, PERRL, EOMI. Absent: scleral icterus, conjunctival injection, periorbital swelling ENT exam: Present: normal exam, normal oropharynx, mucous membranes moist Neck exam: Present: full ROM Respiratory exam: Present: normal lung sounds bilaterally. Absent: respiratory distress, wheezes, rales, rhonchi, stridor Cardiovascular Exam: Present: regular rate, normal rhythm, normal heart sounds. Absent: systolic murmur, diastolic murmur, rubs, gallop, clicks GI/Abdominal exam: Present: soft, tenderness (Left lower quadrant). Absent: distended Extremities exam: Present: normal inspection, full ROM, normal capillary refill. Absent: tenderness, pedal edema, joint swelling Back exam: Present: full ROM, CVA tenderness (L) Neurological exam: Present: alert, oriented X3, CN II-XII intact Psychiatric exam: Present: normal affect, normal mood Skin exam: Present: warm, dry, intact, normal color. Absent: rash Course Vital Signs 02/22/21 02/22/21 02/22/21 14:35 15:37 16:00 Temperature 98.3 F Pulse Rate 90 Respiratory 16 20 20 Rate Blood Pressure 154/98 O2 Sat by Pulse 97 Oximetry 02/22/21 02/22/21 17:00 18:00 Temperature Pulse Rate 83 Respiratory 20 20 Rate Blood Pressure 155/87 O2 Sat by Pulse 96 Oximetry - Reevaluation(s) Reevaluation #1: 02/22/21 16:22 Patient did not get relief from the pain with the Toradol. She is requesting tramadol which has worked for her in the past with no nausea, which was provided. She has ALLERGIES to other medications and is unable to tolerate them related to increased nausea and vomiting. I offered her an antiemetic which she states does not help and she would just prefer tramadol. Time: 16:22 Medical Decision Making - Medical Decision Making Patient has a history of left-sided kidney stone measuring 9 mm and is scheduled next week for surgery. She presents to the emergency room with increasing pain. She did not get pain relief with medications in the emergency room. I did discuss the case with Dr. Lion who agrees to admit the patient and he will take to surgery in the morning. Patient has been afebrile. - Lab Data Result diagrams: 02/22/21 15:32 02/22/21 15:32 Lab Results 02/22/21 02/22/21 02/22/21 Range/Units 15:32 15:32 16:01 WBC 7.2 (3.8-10.6) k/uL RBC 4.73 (3.80-5.40) m/uL Hgb 14.5 (11.4-16.0) gm/dL Hct 41.5 (34.0-46.0) % MCV 87.6 (80.0-100.0) fL MCH 30.7 (25.0-35.0) pg MCHC 35.1 (31.0-37.0) g/dL RDW 13.5 (11.5-15.5) % Plt Count 304 (150-450) k/uL MPV 7.7 Neutrophils % 75 % Lymphocytes % 16 % Monocytes % 5 % Eosinophils % 1 % Basophils % 1 % Neutrophils # 5.4 (1.3-7.7) k/uL Lymphocytes # 1.2 (1.0-4.8) k/uL Monocytes # 0.4 (0-1.0) k/uL Eosinophils # 0.1 (0-0.7) k/uL Basophils # 0.0 (0-0.2) k/uL Sodium 141 (137-145) mmol/L Potassium 4.2 (3.5-5.1) mmol/L Chloride 107 (98-107) mmol/L Carbon Dioxide 24 (22-30) mmol/L Anion Gap 10 mmol/L BUN 14 (7-17) mg/dL Creatinine 0.90 (0.52-1.04) mg/dL Est GFR (CKD-EPI)AfAm 81 (>60 ml/min/1.73 sqM) Est GFR (CKD-EPI)NonAf 71 (>60 ml/min/1.73 sqM) Glucose 122 H (74-99) mg/dL Calcium 10.2 (8.4-10.2) mg/dL Total Bilirubin 0.7 (0.2-1.3) mg/dL AST 31 (14-36) U/L ALT 23 (4-34) U/L Alkaline Phosphatase 121 (38-126) U/L Total Protein 7.9 (6.3-8.2) g/dL Albumin 4.5 (3.5-5.0) g/dL Urine Color Yellow Urine Appearance Clear (Clear) Urine pH 6.5 (5.0-8.0) Ur Specific [place] 1.018 (1.001-1.035) Urine Protein Trace H (Negative) Urine Glucose (UA) Negative (Negative) Urine Ketones 2+ H (Negative) Urine Blood Large H (Negative) Urine Nitrite Negative (Negative) Urine Bilirubin Negative (Negative) Urine Urobilinogen <2.0 (<2.0) mg/dL Ur Leukocyte Esterase Small H (Negative) Urine RBC 153 H (0-5) /hpf Urine WBC 8 H (0-5) /hpf Ur Squamous Epith Cells 1 (0-4) /hpf Urine Bacteria Rare H (None) /hpf Hyaline Casts 4 H (0-2) /lpf Urine Mucus Occasional H (None) /hpf Disposition Clinical Impression: Kidney stone, Hydronephrosis Disposition: ADMITTED IP TO THIS HOSP Decision Date: 02/22/21 Decision Time: 16:52
[2021-02-22 15:38] LABS: Basophils % (A) 1 %; Eosinophils # (A) 0.1 k/uL (0-0.7); Eosinophils % (A) 1 %; HCT 41.5 % (34.0-46.0); HGB 14.5 gm/dL (11.4-16.0); Lymphocytes # (A) 1.2 k/uL (1.0-4.8); Lymphocytes % (A) 16 %; MCH 30.7 pg (25.0-35.0); MCHC 35.1 g/dL (31.0-37.0); MCV 87.6 fL (80.0-100.0); Mean Platelet Volume 7.7; Monocytes # (A) 0.4 k/uL (0-1.0); Monocytes % (A) 5 %; Neutrophils # (A) 5.4 k/uL (1.3-7.7); Neutrophils % (A) 75 %; Platelet Count 304 k/uL (150-450); RBC 4.73 m/uL (3.80-5.40); RDW 13.5 % (11.5-15.5); WBC 7.2 k/uL (3.8-10.6)
[2021-02-22 15:47] LABS: Albumin 4.5 g/dL (3.5-5.0); Calcium 10.2 mg/dL (8.4-10.2); Potassium 4.2 mmol/L (3.5-5.1); Total Bilirubin 0.7 mg/dL (0.2-1.3); Total Protein 7.9 g/dL (6.3-8.2)
[2021-02-22 16:06] LABS: Appearance,Urine Clear (Clear); Bacteria,Urine Rare /hpf; Bilirubin,Urine Negative (Negative); Blood,Urine Large (Negative); Color,Urine Yellow; Glucose,Urine (UA) Negative (Negative); Hyaline Casts,Urine 4 /lpf (0-2); Ketones,Urine 2+ (Negative); Leukocyte Esterase,Urine Small (Negative); Mucus,Urine Occasional /hpf; Nitrite,Urine Negative (Negative); PH, Urine 6.5 (5.0-8.0); Protein,Urine Trace (Negative); RBC,Urine 153 /hpf (0-5); Specific Gravity,Urine 1.018 (1.001-1.035); Squamous Epithelial Cell,Urine 1 /hpf (0-4); Urobilinogen,Urine <2.0 mg/dL (<2.0); WBC,Urine 8 /hpf (0-5)
[2021-02-22] MEDS ORDERED: traMADol 50 MG TAB PO STA (16:21)
[2021-02-22] MEDS ORDERED: SCOPOLAMINE 1.5MG/72HR PATCH TRANSDERM STA (16:25)
[2021-02-22] MEDS ORDERED: cefTRIAXone IN SWFI 1,000 MG/10 ML SYRINGE IVP STA (16:51)
[2021-02-22] MEDS ORDERED: NALOXONE 0.4 MG/ML 1 ML VIAL IV PRN (16:52)
[2021-02-22] MEDS: SODIUM CHLORIDE 0.9% 1,000 ML IV SCH (17:14)
[2021-02-22] MEDS: traMADol 50 MG TAB PO PRN (20:31)
[2021-02-22] MEDS: KETOROLAC 15 MG/ML 1 ML VIAL IVP SCH (20:52)
[2021-02-23] MEDS: traMADol 50 MG TAB PO PRN (02:49)
[2021-02-23] MEDS: KETOROLAC 15 MG/ML 1 ML VIAL IVP SCH ×2 (05:06→12:20)
[2021-02-23] MEDS ORDERED: SUCCINYLCHOLINE CHLORIDE 100 MG/5 ML SYR IV ONE (08:00)
[2021-02-23] MEDS ORDERED: ePHEDrine SULFATE/0.9% NACL/PF 50 MG/5 ML SYRINGE IV ONE (08:00)
[2021-02-23] MEDS ORDERED: KETOROLAC 15 MG/ML 1 ML VIAL ONE (08:00)
[2021-02-23] MEDS: SODIUM CHLORIDE 0.9% 1,000 ML IV SCH (08:00)
[2021-02-23] MEDS ORDERED: LIDOCAINE 1% INJ 10MG/ML (20 ML MDV) ONE (08:00)
[2021-02-23] MEDS ORDERED: PROPOFOL 10 MG/ML 20 ML VIAL IV ONE (08:00)
[2021-02-23] MEDS ORDERED: MIDAZOLAM 2 MG/2 ML VIAL ONE (08:00)
--- NOTE | 2021-02-23 08:06 | P.GSHP ---
History of Present Illness H&P Date: 02/23/21 Chief Complaint: Left flank pain This is a 60-year-old female that presented to the hospital with a 9 mm left- sided proximal stone, she's been having intractable pain associated with nausea. Denies any previous history of stones. Denies any dysuria or gross hematuria, denies any urinary symptoms. Having significant pain despite IV Toradol. This am on evaluation she continues to have significant pain - Constitutional Constitutional: Denies chills, Denies fever - EENT Ears, nose, mouth and throat: Denies headache, Denies sore throat - Cardiovascular Cardiovascular: Denies chest pain, Denies shortness of breath - Respiratory Respiratory: Denies cough, Denies 7 - Gastrointestinal Gastrointestinal: Reports abdominal pain - Genitourinary (Female) Genitourinary: Reports flank pain, Reports kidney stones, Denies dysuria, Denies hematuria, Denies urgency - Genitourinary (Male) Genitourinary: Denies dysuria, Denies hematuria - Musculoskeletal Musculoskeletal: Denies myalgias - Neurological Neurological: Denies numbness, Denies weakness Past Medical History Past Medical History: GERD/Reflux, Hypertension, Pneumonia, Rheumatoid Arthritis (RA) Additional Past Medical History / Comment(s): DIVERTICULOSIS, perforated bowel, facial cellulitis History of Any Multi-Drug Resistant Organisms: ESBL, MRSA Date of last positivie culture/infection: 11/26/20 ESBL 10/05/20 MRSA MDRO Source:: ESBL URINE, MRSA FACE Past Surgical History: Joint Replacement, Orthopedic Surgery Additional Past Surgical History / Comment(s): KNEE SURGERIES LEFT X 9, left knee replaced, D & C, hysterectomy,. COLECTOMY with reversile Past Anesthesia/Blood Transfusion Reactions: No Reported Reaction, Family History of Problems w/ Anesthesia Additional Past Anesthesia/Blood Transfusion Reaction / Comment(s): daughter passed out after wisdom teeth removed Past Psychological History: Anxiety, Depression Smoking Status: Former smoker Past Alcohol Use History: None Reported Additional Past Alcohol Use History / Comment(s): smoked 30 years 1ppd, quit 2011 Past Drug Use History: None Reported - Past Family History Mother Family Medical History: Diabetes Mellitus, Hypertension Father Family Medical History: Hypertension, Renal Disease Brother(s) Family Medical History: Diabetes Mellitus Sister(s) Family Medical History: Diabetes Mellitus Daughter(s) Family Medical History: No Reported History Son(s) Family Medical History: No Reported History Medications and Allergies Home Medications Medication Instructions Recorded Confirmed Type Pantoprazole [Protonix] 40 mg PO DAILY 12/13/15 02/22/21 History amLODIPine BESYLATE [Amlodipine 5 mg PO DAILY 12/13/15 02/22/21 History Besylate] Cholecalciferol [Vitamin D3 (25 50 mcg PO DAILY 07/02/20 02/22/21 History Mcg = 1000 Iu)] Etanercept [Enbrel Sureclick] 50 mg SQ FR #0 11/01/20 02/22/21 Rx ALPRAZolam [Xanax] 2 mg PO BID PRN 11/26/20 02/22/21 History Albuterol Inhaler [Ventolin Hfa 2 puff INHALATION RT-Q4H PRN 02/22/21 02/22/21 History Inhaler] FLUoxetine HCL [PROzac] 20 mg PO DAILY 02/22/21 02/22/21 History Allergies Allergy/AdvReac Type Severity Reaction Status Date / Time hydrocodone [From Vicodin] AdvReac Unknown sweating,blood Verified 02/22/21 17:49 pressure,n&v,dizziness oxycodone [From Percocet] AdvReac Unknown sweating,bloodpressure Verified 02/22/21 17:49 drops,n/v, dizziness fentanyl AdvReac Vomiting Verified 02/22/21 17:49 hydromorphone [From Dilaudid] AdvReac sweating, Verified 02/22/21 17:49 blood pressure dropped, n/v,dizziness Surgical - Exam Vital Signs Temp Pulse Resp BP Pulse Ox 98.3 F 90 16 154/98 97 02/22/21 14:35 02/22/21 14:35 02/22/21 14:35 02/22/21 14:35 02/22/21 14:35 - General moderate distress, severe pain - Eyes PERRL, normal ocular movement - ENT normal nares, normal mucosa - Respiratory normal expansion, normal respiratory effort - Abdomen Abdomen: soft, non tender - Psychiatric oriented to time, oriented to person, oriented to place Results - Labs 02/22/21 15:32 02/22/21 15:32 Abnormal Lab Results - Last 24 Hours (Table) 02/22/21 02/22/21 Range/Units 15:32 16:01 Glucose 122 H (74-99) mg/dL Urine Protein Trace H (Negative) Urine Ketones 2+ H (Negative) Urine Blood Large H (Negative) Ur Leukocyte Esterase Small H (Negative) Urine RBC 153 H (0-5) /hpf Urine WBC 8 H (0-5) /hpf Urine Bacteria Rare H (None) /hpf Hyaline Casts 4 H (0-2) /lpf Urine Mucus Occasional H (None) /hpf Diabetes panel 02/22/21 Range/Units 15:32 Sodium 141 (137-145) mmol/L Potassium 4.2 (3.5-5.1) mmol/L Chloride 107 (98-107) mmol/L Carbon Dioxide 24 (22-30) mmol/L BUN 14 (7-17) mg/dL Creatinine 0.90 (0.52-1.04) mg/dL Glucose 122 H (74-99) mg/dL Calcium 10.2 (8.4-10.2) mg/dL AST 31 (14-36) U/L ALT 23 (4-34) U/L Alkaline Phosphatase 121 (38-126) U/L Total Protein 7.9 (6.3-8.2) g/dL Albumin 4.5 (3.5-5.0) g/dL Calcium panel 02/22/21 Range/Units 15:32 Calcium 10.2 (8.4-10.2) mg/dL Albumin 4.5 (3.5-5.0) g/dL Pituitary panel 02/22/21 Range/Units 15:32 Sodium 141 (137-145) mmol/L Potassium 4.2 (3.5-5.1) mmol/L Chloride 107 (98-107) mmol/L Carbon Dioxide 24 (22-30) mmol/L BUN 14 (7-17) mg/dL Creatinine 0.90 (0.52-1.04) mg/dL Glucose 122 H (74-99) mg/dL Calcium 10.2 (8.4-10.2) mg/dL Adrenal panel 02/22/21 Range/Units 15:32 Sodium 141 (137-145) mmol/L Potassium 4.2 (3.5-5.1) mmol/L Chloride 107 (98-107) mmol/L Carbon Dioxide 24 (22-30) mmol/L BUN 14 (7-17) mg/dL Creatinine 0.90 (0.52-1.04) mg/dL Glucose 122 H (74-99) mg/dL Calcium 10.2 (8.4-10.2) mg/dL Total Bilirubin 0.7 (0.2-1.3) mg/dL AST 31 (14-36) U/L ALT 23 (4-34) U/L Alkaline Phosphatase 121 (38-126) U/L Total Protein 7.9 (6.3-8.2) g/dL Albumin 4.5 (3.5-5.0) g/dL - Imaging CT scan - abdomen: image reviewed (9 mm left-sided proximal stone) Assessment and Plan Assessment: This is a 60-year-old female with history of 9 mm left-sided proximal stone, having intractable pain secondary to her stone. Discussed the option of doing a left-sided ureteroscopy with holmium laser with her. Discussed with her the risk of procedure which includes but not limited to bleeding, infection, injury to ureter. Discussed also risk of anesthesia. Of note she's been on IV antibiotics for more than 24 hours. She understood all the risk and agreed to proceed with left-sided ureteroscopy, with holmium laser lithotripsy, stone basketing and stent insertion, we'll plan on discharging home after surgery
[2021-02-23] MEDS ORDERED: LACTATED RINGERS 1,000 ML IV ONE (08:07)
[2021-02-23] MEDS ORDERED: SODIUM CHLORIDE 0.9% 50 ML with GENTAMICIN 80 MG IV ONE ×2 (08:22)
[2021-02-23] MEDS ORDERED: IOPAMIDOL-370 50ML BTL MISCELLANE ONE (08:24)
--- NOTE | 2021-02-23 09:03 | P.OP ---
Date of Procedure: 02/23/21 Preoperative Diagnosis: Left ureteral stone Postoperative Diagnosis: Same Procedure(s) Performed: Left retrograde pyelogram, ureteroscopy, holmium laser lithotripsy, stone basketing and stent insertion Implants: 6-[place]izen [place] by 24 cm stent in the left ureter Anesthesia: SHAHBAZ Surgeon: Cash Lion Estimated Blood Loss (ml): 1 Pathology: other (Left ureteral stones) Condition: stable Disposition: PACU Indications for Procedure: his is a 60-year-old female with history of 9 mm left-sided proximal stone, having intractable pain secondary to her stone. Discussed the option of doing a left-sided ureteroscopy with holmium laser with her. Discussed with her the risk of procedure which includes but not limited to bleeding, infection, injury to ureter. Discussed also risk of anesthesia. Of note she's been on IV antibiotics for more than 24 hours. She understood all the risk and agreed to proceed with left-sided ureteroscopy, with holmium laser lithotripsy, stone basketing and stent insertion, Operative Findings: Large stone in the left proximal ureter Description of Procedure: Patient was brought to the operating room, general anesthesia was induced. She was prepped and draped in sterile fashion and placed in dorsal lithotomy position. Cystoscopy fitted with a 21-[place] sheath was inserted per urethra, cystoscopy was performed which showed no abnormality within the bladder. Attention was then carried to the left ureteral orifice which was intubated with an open-ended catheter. Retrograde pyelogram was performed which showed a filling defect in the proximal ureter with dilated ureter proximal to that. At this time a sensor wire was advanced through the catheter and the catheter was removed with the wire in place. Next a semirigid ureteroscope was inserted per urethra and advanced up the left ureteral orifice, the stone was encountered in the proximal ureter. Using the holmium laser the stone was fragmented into small fragments, sizable fragments were removed using the stone basket. at this time the scope was advanced all the way up to the UPJ which showed no evidence of additional fragments or any stones. Pullback ureteroscopy was performed which showed no evidence of ureteral injury or any sizable fragments. At this time a 1113 [place] access sheath over the wire into the proximal ureter. The flexible ureteroscope was inserted through the access sheath, renoscopy was performed showed no additional stones in the kidney, or any fragments. Pullback ureteroscopy was performed which showed no injury to the ureter or any ureteral fragments. As the ureteroscope was withdrawn and a sensor wire was advanced through. Next a ureteral stent was passed over the wire, the proximal curl was visualized on fluoroscopy and the distal curl was visualized using the cystoscope. The bladder was emptied at the end of the case. Patient tolerated the procedure well and taken to PACU in stable condition
[2021-02-23 09:14] VITALS: TEMP 96.9
--- NOTE | 2021-02-23 09:43 | P.DS ---
Providers Date of admission: 02/22/21 16:52 Attending physician: Cash Lion MD Primary care physician: [facility] Course: 60 yo female with hx of left sided ureteral stone, she was admitted to the hospital on 02/22 for intractable pain. She continued to have intractable pain and was taken to the operating room, on February 23 for left-sided ureteroscopy with holmium laser and stent placement. Please see op note dated February 23 for surgery detail. Patient was discharged home after surgery, she was advised to follow up in 1 week for stent removal Plan - Discharge Summary Discharge Rx Participant: No New Discharge Prescriptions: New Cephalexin [Keflex] 500 mg PO Q8HR #15 cap Ketorolac [Toradol] 10 mg PO Q6HR PRN #15 tab PRN Reason: Pain No Action amLODIPine BESYLATE [Amlodipine Besylate] 5 mg PO DAILY Pantoprazole [Protonix] 40 mg PO DAILY Cholecalciferol [Vitamin D3 (25 Mcg = 1000 Iu)] 50 mcg PO DAILY FLUoxetine HCL [PROzac] 20 mg PO DAILY Etanercept [Enbrel Sureclick] 50 mg SQ FR #0 ALPRAZolam [Xanax] 2 mg PO BID PRN PRN Reason: Anxiety Albuterol Inhaler [Ventolin Hfa Inhaler] 2 puff INHALATION RT-Q4H PRN PRN Reason: Shortness Of Breath Discharge Medication List Pantoprazole [Protonix] 40 mg PO DAILY 12/13/15 [History] amLODIPine BESYLATE [Amlodipine Besylate] 5 mg PO DAILY 12/13/15 [History] Cholecalciferol [Vitamin D3 (25 Mcg = 1000 Iu)] 50 mcg PO DAILY 07/02/20 [History] Etanercept [Enbrel Sureclick] 50 mg SQ FR #0 11/01/20 [Rx] ALPRAZolam [Xanax] 2 mg PO BID PRN 11/26/20 [History] Albuterol Inhaler [Ventolin Hfa Inhaler] 2 puff INHALATION RT-Q4H PRN 02/22/21 [History] FLUoxetine HCL [PROzac] 20 mg PO DAILY 02/22/21 [History] Cephalexin [Keflex] 500 mg PO Q8HR #15 cap 02/23/21 [Rx] Ketorolac [Toradol] 10 mg PO Q6HR PRN #15 tab 02/23/21 [Rx] Follow up Appointment(s)/Referral(s): Cash Lion MD [STAFF PHYSICIAN] - 1 Week Shayne Cisneros DO [Primary Care Provider] - 1-2 days Patient Instructions/Handouts: *[facility] - Anesthesia Discharge Instructions, *[facility] - Cystoscopy Discharge Instructions, *[facility] - (Anesthesia) Endoscopy Discharge Instructions Activity/Diet/Wound Care/Special Instructions: Increase fluid intake It is normal to see blood in the urine
[2021-02-23 12:17] VITALS: RESP 17
[2021-02-23 14:17] VITALS: BP 124/78; PULSE 71
--- NOTE | 2021-02-24 19:27 | FL ---
EXAMINATION TYPE: FL urography retrograde DATE OF EXAM: 02/23/2021 FLUOROSCOPY Fluoroscopy time of 33 seconds was used during left kidney stone urologic intervention. 5 image/s do cument/s the procedure.
== END 2021-02-23 14:40 | disposition home or self-care (01) | DRG 660 ==
LOC: EC 14:18 → 5NMEDONC 16:52
PROVIDERS: ADMIT Urology; ATTEND Urology
PROC: 0T778DZ Dilation of Left Ureter with Intraluminal Device, Via Natural or Artificial Opening Endoscopic (ICD-10-PCS; principal; 2021-02-23 08:00)
PROC: 0TCD8ZZ Extirpation of Matter from Urethra, Via Natural or Artificial Opening Endoscopic (ICD-10-PCS; 2021-02-23 08:00)
PROC: BT1F1ZZ Fluoroscopy of Left Kidney, Ureter and Bladder using Low Osmolar Contrast (ICD-10-PCS; 2021-02-23 08:00)
DX: N13.2 Hydronephrosis with renal and ureteral calculous obstruction (principal); Z16.24 Resistance to multiple antibiotics; Z79.899 Other long term (current) drug therapy; Z82.49 Family history of ischemic heart disease and other diseases of the circulatory system; Z20.822 Contact with and (suspected) exposure to COVID-19; Z83.3 Family history of diabetes mellitus; Z87.442 Personal history of urinary calculi; Z87.891 Personal history of nicotine dependence; Z90.710 Acquired absence of both cervix and uterus; M54.9 Dorsalgia, unspecified; K21.9 Gastro-esophageal reflux disease without esophagitis; F32.9 Major depressive disorder, single episode, unspecified; F41.9 Anxiety disorder, unspecified; I10 Essential (primary) hypertension; M06.9 Rheumatoid arthritis, unspecified
CPT/HCPCS: 36415; 74420; 80053; 81001; 82365; 85025; 87635; 96361; 96374; 96375; 99285

== ENCOUNTER 2021-03-03 11:53 | Emergency (ER) | payer MEDICAID ==
[2021-03-03 12:22] VITALS: TEMP 98.7
[2021-03-03] MEDS ORDERED: SODIUM CHLORIDE 0.9% 1,000 ML IV STA (12:32)
--- NOTE | 2021-03-03 12:40 | ED ---
General Adult HPI - General Chief complaint: Abdominal Pain Stated complaint: lt sided post op flank pain Time Seen by Provider: 03/03/21 12:23 Source: patient, RN notes reviewed, old records reviewed Mode of arrival: ambulatory Limitations: no limitations - History of Present Illness Initial comments: This 60-year-old well-appearing female patient presents to the emergency room with left lower quadrant pain she states that she had kidney stone removal with stent placement [address] foster. She states that there state the pain returned the left lower quadrant and she's been having some diarrhea. She denies any fevers nausea or vomiting. She was placed on Keflex for 5 days and finished that course. She does have a history of bowel resection from a perforated bowel, diverticulosis. She states that the pain is intermittent and is currently 2 out of 10. She is not requesting any pain medicine at this time. -: days(s) (4) Location: abdomen (LLQ RLQ) Radiation: non-radiation Severity scale (1-10): 2 Quality: sharp Consistency: intermittent Associated Symptoms: other (Diarrhea) - Related Data Home Medications Medication Instructions Recorded Confirmed Pantoprazole [Protonix] 40 mg PO DAILY 12/13/15 02/22/21 amLODIPine BESYLATE [Amlodipine 5 mg PO DAILY 12/13/15 02/22/21 Besylate] Cholecalciferol [Vitamin D3 (25 50 mcg PO DAILY 07/02/20 02/22/21 Mcg = 1000 Iu)] ALPRAZolam [Xanax] 2 mg PO BID PRN 11/26/20 02/22/21 Albuterol Inhaler [Ventolin Hfa 2 puff INHALATION RT-Q4H PRN 02/22/21 02/22/21 Inhaler] FLUoxetine HCL [PROzac] 20 mg PO DAILY 02/22/21 02/22/21 Previous Rx's Medication Instructions Recorded Etanercept [Enbrel Sureclick] 50 mg SQ FR #0 11/01/20 Cephalexin [Keflex] 500 mg PO Q8HR #15 cap 02/23/21 Ketorolac [Toradol] 10 mg PO Q6HR PRN #15 tab 02/23/21 Allergies Allergy/AdvReac Type Severity Reaction Status Date / Time hydrocodone [From Vicodin] AdvReac Unknown sweating,blood Verified 03/03/21 12:21 pressure,n&v,dizziness oxycodone [From Percocet] AdvReac Unknown sweating,bloodpressure Verified 03/03/21 12:21 drops,n/v, dizziness fentanyl AdvReac Vomiting Verified 03/03/21 12:21 hydromorphone [From Dilaudid] AdvReac sweating, Verified 03/03/21 12:21 blood pressure dropped, n/v,dizziness Review of Systems ROS Statement: Those systems with pertinent positive or pertinent negative responses have been documented in the HPI. ROS Other: All systems not noted in ROS Statement are negative. Past Medical History Past Medical History: GERD/Reflux, Hypertension, Pneumonia, Rheumatoid Arthritis (RA) Additional Past Medical History / Comment(s): DIVERTICULOSIS, perforated bowel, facial cellulitis History of Any Multi-Drug Resistant Organisms: ESBL, MRSA Date of last positivie culture/infection: 11/26/20 ESBL 10/05/20 MRSA MDRO Source:: ESBL URINE, MRSA FACE Past Surgical History: Joint Replacement, Orthopedic Surgery Additional Past Surgical History / Comment(s): KNEE SURGERIES LEFT X 9, left knee replaced, D & C, hysterectomy,. COLECTOMY with reversile, ureter stent Past Anesthesia/Blood Transfusion Reactions: No Reported Reaction, Family History of Problems w/ Anesthesia Additional Past Anesthesia/Blood Transfusion Reaction / Comment(s): daughter passed out after wisdom teeth removed Past Psychological History: Anxiety, Depression Smoking Status: Former smoker Past Alcohol Use History: None Reported Past Drug Use History: None Reported - Past Family History Mother Family Medical History: Diabetes Mellitus, Hypertension Father Family Medical History: Hypertension, Renal Disease Brother(s) Family Medical History: Diabetes Mellitus Sister(s) Family Medical History: Diabetes Mellitus Daughter(s) Family Medical History: No Reported History Son(s) Family Medical History: No Reported History General Exam Limitations: no limitations General appearance: alert, in no apparent distress Head exam: Present: atraumatic, normocephalic, normal inspection Eye exam: Present: normal appearance, PERRL, EOMI. Absent: scleral icterus, conjunctival injection, periorbital swelling ENT exam: Present: normal exam, normal oropharynx, mucous membranes moist Neck exam: Present: normal inspection, full ROM. Absent: tenderness, meningismus, lymphadenopathy Respiratory exam: Present: normal lung sounds bilaterally, decreased breath s ounds. Absent: respiratory distress, wheezes, rales, rhonchi, stridor Cardiovascular Exam: Present: tachycardia GI/Abdominal exam: Present: soft, tenderness (llq rlq), normal bowel sounds. Absent: distended, guarding, rebound, rigid Extremities exam: Present: normal inspection, full ROM, normal capillary refill. Absent: tenderness, pedal edema, joint swelling, calf tenderness Back exam: Absent: CVA tenderness (R), CVA tenderness (L) Neurological exam: Present: alert, oriented X3, CN II-XII intact Psychiatric exam: Present: normal affect, normal mood Skin exam: Present: warm, dry, intact, normal color. Absent: rash, cyanosis, diaphoretic, petechiae, pallor Course Vital Signs 03/03/21 12:18 Temperature 98.7 F Pulse Rate 121 H Respiratory 18 Rate Blood Pressure 137/88 O2 Sat by Pulse 96 Oximetry Medical Decision Making - Medical Decision Making Abdominal x-ray shows a nonspecific abdomen with no free air or obstruction. Left ureteral stent is in place with multiple calcifications adjacent to the left ureteral stent with no evidence of obstruction. CT of the abdomen shows mild left-sided ureteral edema and clearing of a small calculus in the left kidney compared to previous scan. There is no sign of a thickened appendix. There is no mesenteric edema no evidence of bowel obstruction. There is no evidence of leukocytosis. Patient's lactic acid is 3.5 and she was given 2 L of normal saline. Her UA shows wbc clumps with large blood and trace ketones this is likely related to the post ureteral stent. She does have an appointment tomorrow with urology for stent removal. She'll be discharged home and follow up as scheduled. Case discussed with Dr. Johnson - Lab Data Result diagrams: 03/03/21 12:36 03/03/21 12:36 Lab Results 03/03/21 03/03/21 03/03/21 Range/Units 12:36 12:36 12:36 WBC 7.9 (3.8-10.6) k/uL RBC 5.00 (3.80-5.40) m/uL Hgb 15.0 (11.4-16.0) gm/dL Hct 44.7 (34.0-46.0) % MCV 89.5 (80.0-100.0) fL MCH 29.9 (25.0-35.0) pg MCHC 33.4 (31.0-37.0) g/dL RDW 12.7 (11.5-15.5) % Plt Count 317 (150-450) k/uL MPV 7.4 Neutrophils % 64 % Lymphocytes % 24 % Monocytes % 6 % Eosinophils % 3 % Basophils % 1 % Neutrophils # 5.1 (1.3-7.7) k/uL Lymphocytes # 1.9 (1.0-4.8) k/uL Monocytes # 0.4 (0-1.0) k/uL Eosinophils # 0.2 (0-0.7) k/uL Basophils # 0.1 (0-0.2) k/uL Sodium 141 (137-145) mmol/L Potassium 4.1 (3.5-5.1) mmol/L Chloride 106 (98-107) mmol/L Carbon Dioxide 22 (22-30) mmol/L Anion Gap 13 mmol/L BUN 11 (7-17) mg/dL Creatinine 0.89 (0.52-1.04) mg/dL Est GFR (CKD-EPI)AfAm 82 (>60 ml/min/1.73 sqM) Est GFR (CKD-EPI)NonAf 71 (>60 ml/min/1.73 sqM) Glucose 127 H (74-99) mg/dL Plasma Lactic Acid [place] (0.7-2.0) mmol/L Calcium 10.0 (8.4-10.2) mg/dL Total Bilirubin 0.6 (0.2-1.3) mg/dL AST 31 (14-36) U/L ALT 23 (4-34) U/L Alkaline Phosphatase 126 (38-126) U/L Total Protein 7.9 (6.3-8.2) g/dL Albumin 4.5 (3.5-5.0) g/dL Amylase 58 (30-110) U/L Lipase 147 (23-300) U/L Urine Color Red Urine Appearance Turbid H (Clear) Urine pH 5.5 (5.0-8.0) Ur Specific [place] 1.019 (1.001-1.035) Urine Protein 2+ H (Negative) Urine Glucose (UA) Negative (Negative) Urine Ketones Trace H (Negative) Urine Blood Large H (Negative) Urine Nitrite Negative (Negative) Urine Bilirubin Negative (Negative) Urine Urobilinogen <2.0 (<2.0) mg/dL Ur Leukocyte Esterase Moderate H (Negative) Urine RBC >182 H (0-5) /hpf Urine WBC Clumps Many H (None) /hpf Ur Squamous Epith Cells 10 H (0-4) /hpf Urine Bacteria Occasional H (None) /hpf Hyaline Casts 17 H (0-2) /lpf Urine Mucus Many H (None) /hpf 03/03/21 Range/Units 12:36 WBC (3.8-10.6) k/uL RBC (3.80-5.40) m/uL Hgb (11.4-16.0) gm/dL Hct (34.0-46.0) % MCV (80.0-100.0) fL MCH (25.0-35.0) pg MCHC (31.0-37.0) g/dL RDW (11.5-15.5) % Plt Count (150-450) k/uL MPV Neutrophils % % Lymphocytes % % Monocytes % % Eosinophils % % Basophils % % Neutrophils # (1.3-7.7) k/uL Lymphocytes # (1.0-4.8) k/uL Monocytes # (0-1.0) k/uL Eosinophils # (0-0.7) k/uL Basophils # (0-0.2) k/uL Sodium (137-145) mmol/L Potassium (3.5-5.1) mmol/L Chloride (98-107) mmol/L Carbon Dioxide (22-30) mmol/L Anion Gap mmol/L BUN (7-17) mg/dL Creatinine (0.52-1.04) mg/dL Est GFR (CKD-EPI)AfAm (>60 ml/min/1.73 sqM) Est GFR (CKD-EPI)NonAf (>60 ml/min/1.73 sqM) Glucose (74-99) mg/dL Plasma Lactic Acid [place] 3.5 H* (0.7-2.0) mmol/L Calcium (8.4-10.2) mg/dL Total Bilirubin (0.2-1.3) mg/dL AST (14-36) U/L ALT (4-34) U/L Alkaline Phosphatase (38-126) U/L Total Protein (6.3-8.2) g/dL Albumin (3.5-5.0) g/dL Amylase (30-110) U/L Lipase (23-300) U/L Urine Color Urine Appearance (Clear) Urine pH (5.0-8.0) Ur Specific [place] (1.001-1.035) Urine Protein (Negative) Urine Glucose (UA) (Negative) Urine Ketones (Negative) Urine Blood (Negative) Urine Nitrite (Negative) Urine Bilirubin (Negative) Urine Urobilinogen (<2.0) mg/dL Ur Leukocyte Esterase (Negative) Urine RBC (0-5) /hpf Urine WBC Clumps (None) /hpf Ur Squamous Epith Cells (0-4) /hpf Urine Bacteria (None) /hpf Hyaline Casts (0-2) /lpf Urine Mucus (None) /hpf Disposition Clinical Impression: Abdominal pain Disposition: HOME SELF-CARE Condition: Good Instructions (If sedation given, give patient instructions): Abdominal Pain (ED) Additional Instructions: Keep your appointment with your urologist tomorrow as scheduled. Return to the emergency room with any increased pain, fevers or inability to urinate. Is patient prescribed a controlled substance at d/c from ED?: No Referrals: Shayne Cisneros DO [Primary Care Provider] - 1-2 days Time of Disposition: 15:22
[2021-03-03 12:48] LABS: Basophils # (A) 0.1 k/uL (0-0.2); Basophils % (A) 1 %; Eosinophils # (A) 0.2 k/uL (0-0.7); Eosinophils % (A) 3 %; HCT 44.7 % (34.0-46.0); Lymphocytes # (A) 1.9 k/uL (1.0-4.8); Lymphocytes % (A) 24 %; MCH 29.9 pg (25.0-35.0); MCHC 33.4 g/dL (31.0-37.0); MCV 89.5 fL (80.0-100.0); Mean Platelet Volume 7.4; Monocytes # (A) 0.4 k/uL (0-1.0); Monocytes % (A) 6 %; Neutrophils # (A) 5.1 k/uL (1.3-7.7); Neutrophils % (A) 64 %; Platelet Count 317 k/uL (150-450); RDW 12.7 % (11.5-15.5); WBC 7.9 k/uL (3.8-10.6)
[2021-03-03 12:52] LABS: Appearance,Urine Turbid (Clear); Bacteria,Urine Occasional /hpf; Bilirubin,Urine Negative (Negative); Blood,Urine Large (Negative); Color,Urine Red; Glucose,Urine (UA) Negative (Negative); Hyaline Casts,Urine 17 /lpf (0-2); Ketones,Urine Trace (Negative); Leukocyte Esterase,Urine Moderate (Negative); Mucus,Urine Many /hpf; Nitrite,Urine Negative (Negative); PH, Urine 5.5 (5.0-8.0); Protein,Urine 2+ (Negative); RBC,Urine >182 /hpf (0-5); Specific Gravity,Urine 1.019 (1.001-1.035); Squamous Epithelial Cell,Urine 10 /hpf (0-4); Urobilinogen,Urine <2.0 mg/dL (<2.0)
--- NOTE | 2021-03-03 13:02 | XR ---
KUB. HISTORY: Abdominal pain COMPARISON: 11/26/2020. TECHNIQUE: Upright views of the abdomen were obtained. FINDINGS: There is a double-J stent in the left ureter. Visualized lung bases are clear and there is no free air beneath the diaphragm. The bowel gas pattern is nonspecific and there is no evidence of obstruction. There are multiple calc ifications adjacent to the left ureteral stent distally which were seen previously and most likely re present phleboliths. IMPRESSION: Nonspecific abdomen without evidence of free air or obstruction. There is a left ureteral stent in pl [address].
[2021-03-03 13:11] LABS: Albumin 4.5 g/dL (3.5-5.0); Potassium 4.1 mmol/L (3.5-5.1); Total Bilirubin 0.6 mg/dL (0.2-1.3); Total Protein 7.9 g/dL (6.3-8.2)
[2021-03-03] MEDS ORDERED: SODIUM CHLORIDE 0.9% 1,000 ML IV ONE (14:51)
--- NOTE | 2021-03-03 14:59 | CT ---
EXAMINATION TYPE: CT abdomen pelvis wo con DATE OF EXAM: 03/03/2021 COMPARISON: 02/21/2021 HISTORY: Left lower quadrant pain. Ureteral stent and left kidney stone removal 1 week ago. History o f diverticulitis with perforation and bowel resection. CT DLP: 494.6 mGycm Automated exposure control for dose reduction was used. Lung bases are clear. There is no pleural effusion. Heart size is normal. There is no pericardial eff usion. Liver spleen stomach pancreas gallbladder appear intact. Bile ducts are not dilated. There is no adrenal mass. There is left side double-J ureteral stent. There is no hydronephrosis. Ure ters are not dilated. Stent appears in good position. There is no retroperitoneal adenopathy. There i s minimal stranding around the left ureter. There is no mesenteric edema. There is no ascites or free air. There is no bowel obstruction. Appendi x is not seen. There is no sign of thickened appendix. Lumbar vertebra have normal alignment. Posteri or elements are intact. There is no compression fracture. Hip joints are intact. Bony pelvis is intac t. IMPRESSION: Mild left side periureteral edema. There is clearing of a small calculus in the left kidney compared to old CT scan.
[2021-03-03 15:54] VITALS: BP 146/78; PULSE 76; RESP 20
== END 2021-03-03 15:54 | disposition home or self-care (01) ==
LOC: EC 11:53
DX: R10.32 Left lower quadrant pain (principal); R10.31 Right lower quadrant pain; R19.7 Diarrhea, unspecified; I10 Essential (primary) hypertension; K21.9 Gastro-esophageal reflux disease without esophagitis; F32.9 Major depressive disorder, single episode, unspecified; F41.9 Anxiety disorder, unspecified; M06.9 Rheumatoid arthritis, unspecified; Z79.1 Long term (current) use of non-steroidal anti-inflammatories (NSAID); Z87.442 Personal history of urinary calculi; Z87.891 Personal history of nicotine dependence; Z88.5 Allergy status to narcotic agent; Z90.49 Acquired absence of other specified parts of digestive tract; Z90.710 Acquired absence of both cervix and uterus
CPT/HCPCS: 36415; 74018; 74176; 80053; 81001; 82150; 83605; 83690; 85025; 96360; 96361; 99284

== ENCOUNTER → 2021-04-22 | Outpatient (CLI) | payer MEDICAID ==
--- NOTE | 2021-04-23 11:06 | MM ---
Reason for exam: additional evaluation requested from prior study. Last mammogram was performed 2 years and 7 months ago. History: Patient is postmenopausal. Physical Findings: Nurse did not find any significant physical abnormalities on exam. MG 3D Diag Mammo W/Cad DAVID Bilateral CC and MLO view(s) were taken. Prior study comparison: September 08, 2018, left breast MG work up mamm w CAD LT. September 02, 2018, bilateral MG screening mammo w CAD. The breast tissue is heterogeneously dense. This may lower the sensitivity of mammography. Central left CC asymmetric density appears to disperse on additional views. Precautionary 6 month follow up recommended. These results were verbally communicated with the patient and result sheet given to the patient on 04/22/21. ASSESSMENT: Probably benign, BI-RAD 3 RECOMMENDATION: Follow-up diagnostic mammogram of the left breast in 6 months.
== END | disposition home or self-care (01) ==
LOC: RADMAMWWP 14:59
PROVIDERS: ATTEND Obstetrics & Gynecology
DX: N64.89 Other specified disorders of breast (principal); Z78.0 Asymptomatic menopausal state
CPT/HCPCS: 77062; 77066

== ENCOUNTER → 2021-09-05 | Outpatient (CLI) | payer MEDICAID ==
--- NOTE | 2021-09-05 20:01 | MR ---
EXAMINATION TYPE: MR brain wo/w con DATE OF EXAM: 09/05/2021 COMPARISON: None HISTORY: H57.02 Anisocoria, difference in pupils TECHNIQUE: Multiplanar, multisequence images of the brain and brainstem is performed without and with IV contras t, utilizing 7.5 mL intravenous Gadavist . FINDINGS: On axial image #11 and inversion recovery T2-weighted sequences, postcontrast image #10 the re is a lobular signal void an area of abnormal enhancement extending medially from the internal lozano tid artery near the orbital apex suggestive of aneurysm measuring approximately 6 to 7 mm. Diffusion weighted images demonstrate no evidence of a recent infarct or other diffusion abnormality. There is no extra-axial fluid collection. Scattered subcortical, periventricular white matter hyperintensiti es are present on inversion recovery and T2-weighted sequences, largest in the right frontal lobe on axial image 19 measures 6 mm, approximately 10-15 lesions are present The ventricular system and cist ernal spaces are normal in size and appearance. The brain volume is age appropriate. Midline structures demonstrate normal morphology. The craniocervical junction appears within normal limits. Post contrast images demonstrate no abnormal enhancement. The dural venous sinuses appear pa tent. The visualized sinuses are remarkable for mucosal disease in the maxillary sinuses, there may b e mucus retention cyst in the left, ethmoid air cells show mild inflammatory change, and the globes a re intact. Minimal inflammatory change in the mastoid air cells on the left. 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 No nspecific white matter demyelination, differential includes migraine headaches, hypertension, Lyme di sease, vasculitis, chronic small vessel ischemic changes.
== END | disposition home or self-care (01) ==
LOC: RADMRIMAIN 16:20
PROVIDERS: ATTEND Ophthalmology
DX: G37.8 Other specified demyelinating diseases of central nervous system (principal); G43.909 Migraine, unspecified, not intractable, without status migrainosus; A69.20 Lyme disease, unspecified; I10 Essential (primary) hypertension; I77.6 Arteritis, unspecified; I67.82 Cerebral ischemia
CPT/HCPCS: 70553; A9585

== ENCOUNTER → 2021-10-21 | Outpatient (CLI) | payer MEDICAID ==
--- NOTE | 2021-10-22 06:51 | CT ---
EXAMINATION TYPE: CT angio head DATE OF EXAM: 10/21/2021 4:44 PM COMPARISON: CTA head September 10, 2021. MRI brain September 05, 2021 HISTORY: cerebral aneurysm CT DLP: 2170.7 mGycm Automated exposure control for dose reduction was used. TECHNIQUE: Performed with IV Contrast, patient injected with 65 mL of Isovue 370. 3D reconstructed images are created on an independent workstation and reviewed.. FINDINGS: Noncontrast images show no acute intracranial hemorrhage or midline shift. Ventricles and sulci withi n normal limits in size for patient's age. Marquis-white matter differentiation is maintained. The ferdinand rium is intact. CTA images redemonstrate dominant right vertebral artery filling the basilar artery. Smaller caliber left vertebral artery is occluded or hypoplastic distally. There are patent bilateral posterior commu nicating arteries redemonstrated. There is no significant focal stenosis or aneurysm in the posterior circulation. There is new metallic stent in the tortuous portion of the supraclinoid segment distal right internal carotid artery. There is redemonstration of eccentric 5 mm lesion deep to this at suprasellar level series 4 measures 13 showing continued postcontrast enhancement isodense to adjacent enhancing vessel s anterior-inferior aspect of the suprasellar region just posterior to the superior level of the sphe noid sinus. Small caliber but patent anterior indicating artery is redemonstrated. There is no new an eurysm in the anterior circulation. No significant focal stenosis is present. 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 Correlate clin ically with findings obtained during direct catheter angiogram during time of stent graft placement a s findings suggest right ICA may not be the feeding vessel for the aneurysm.
== END | disposition home or self-care (01) ==
LOC: RADCTMAIN 15:15
PROVIDERS: ATTEND Psychiatry & Neurology Vascular Neurology
DX: I67.1 Cerebral aneurysm, nonruptured (principal); Z95.5 Presence of coronary angioplasty implant and graft
CPT/HCPCS: 70496; Q9967

== ENCOUNTER 2021-10-22 22:11 | Emergency (ER) | payer MEDICAID ==
[2021-10-22 22:22] VITALS: TEMP 97.8
[2021-10-23] MEDS ORDERED: LORazepam 1 MG TAB PO STA (00:27)
[2021-10-23] MEDS ORDERED: METOPROLOL TARTRATE 50 MG TAB PO STA (00:27)
--- NOTE | 2021-10-23 00:29 | ED ---
Headache HPI - General Chief Complaint: Headache Stated Complaint: High BP, Headache, post-pipeline embolisation Time Seen by Provider: 10/23/21 00:07 Mode of arrival: ambulatory Limitations: no limitations - History of Present Illness MD Complaint: headache -: hour(s) Onset Description: gradual Location: right, left, occipital Severity: moderate Quality: aching Consistency: constant Improves With: nothing Worsens With: none Context: occurred at rest Associated Symptoms: nausea Treatments Prior to Arrival: none - Related Data Home Medications Medication Instructions Recorded Confirmed Pantoprazole [Protonix] 40 mg PO DAILY 12/13/15 02/22/21 amLODIPine BESYLATE [Amlodipine 5 mg PO DAILY 12/13/15 02/22/21 Besylate] Cholecalciferol [Vitamin D3 (25 50 mcg PO DAILY 07/02/20 02/22/21 Mcg = 1000 Iu)] ALPRAZolam [Xanax] 2 mg PO BID PRN 11/26/20 02/22/21 Albuterol Inhaler [Ventolin Hfa 2 puff INHALATION RT-Q4H PRN 02/22/21 02/22/21 Inhaler] FLUoxetine HCL [PROzac] 20 mg PO DAILY 02/22/21 02/22/21 Previous Rx's Medication Instructions Recorded Etanercept [Enbrel Sureclick] 50 mg SQ FR #0 11/01/20 Cephalexin [Keflex] 500 mg PO Q8HR #15 cap 02/23/21 Ketorolac [Toradol] 10 mg PO Q6HR PRN #15 tab 02/23/21 cloNIDine HCL [Catapres] 0.2 mg PO Q8H PRN #21 tablet 10/23/21 Allergies Allergy/AdvReac Type Severity Reaction Status Date / Time hydrocodone [From Vicodin] AdvReac Unknown sweating,blood Verified 03/03/21 12:21 pressure,n&v,dizziness oxycodone [From Percocet] AdvReac Unknown sweating,bloodpressure Verified 03/03/21 12:21 drops,n/v, dizziness fentanyl AdvReac Vomiting Verified 03/03/21 12:21 hydromorphone [From Dilaudid] AdvReac sweating, Verified 03/03/21 12:21 blood pressure dropped, n/v,dizziness Review of Systems ROS Statement: Those systems with pertinent positive or pertinent negative responses have been documented in the HPI. ROS Other: All systems not noted in ROS Statement are negative. Constitutional: Denies: fever, chills Respiratory: Denies: dyspnea Cardiovascular: Denies: chest pain, palpitations, edema Gastrointestinal: Reports: nausea. Denies: abdominal pain, vomiting, diarrhea Genitourinary: Denies: dysuria Musculoskeletal: Denies: back pain Skin: Denies: rash Neurological: Reports: headache. Denies: weakness, numbness, paresthesias, confusion Psychiatric: Reports: anxiety Past Medical History Past Medical History: GERD/Reflux, Hypertension, Pneumonia, Rheumatoid Arthritis (RA) Additional Past Medical History / Comment(s): DIVERTICULOSIS, perforated bowel, facial cellulitis History of Any Multi-Drug Resistant Organisms: None Reported Date of last positivie culture/infection: 11/26/20 ESBL 10/05/20 MRSA MDRO Source:: ESBL URINE, MRSA FACE Past Surgical History: Joint Replacement, Orthopedic Surgery Additional Past Surgical History / Comment(s): KNEE SURGERIES LEFT X 9, left knee replaced, D & C, hysterectomy,. COLECTOMY with reversile, ureter stent Past Anesthesia/Blood Transfusion Reactions: No Reported Reaction, Family History of Problems w/ Anesthesia Additional Past Anesthesia/Blood Transfusion Reaction / Comment(s): daughter passed out after wisdom teeth removed Past Psychological History: Anxiety, Depression Smoking Status: Former smoker Past Alcohol Use History: None Reported Past Drug Use History: None Reported - Past Family History Mother Family Medical History: Diabetes Mellitus, Hypertension Father Family Medical History: Hypertension, Renal Disease Brother(s) Family Medical History: Diabetes Mellitus Sister(s) Family Medical History: Diabetes Mellitus Daughter(s) Family Medical History: No Reported History Son(s) Family Medical History: No Reported History General Exam Limitations: no limitations General appearance: alert, in no apparent distress Head exam: Present: atraumatic, normocephalic Eye exam: Present: normal appearance. Absent: scleral icterus, conjunctival injection ENT exam: Present: normal oropharynx Neck exam: Present: normal inspection Respiratory exam: Present: normal lung sounds bilaterally. Absent: respiratory distress, wheezes, rales, rhonchi, stridor Cardiovascular Exam: Present: regular rate, normal rhythm, normal heart sounds. Absent: systolic murmur, diastolic murmur, rubs, gallop GI/Abdominal exam: Present: soft. Absent: distended, tenderness, guarding, rebound, rigid, mass Extremities exam: Present: normal inspection, normal capillary refill. Absent: pedal edema, calf tenderness Back exam: Present: normal inspection. Absent: CVA tenderness (R), CVA tenderness (L) Neurological exam: Present: alert, oriented X3, CN II-XII intact. Absent: motor sensory deficit Skin exam: Present: warm, dry, intact, normal color. Absent: rash Course Vital Signs 10/22/21 10/23/21 10/23/21 22:19 00:26 01:14 Temperature 97.8 F Pulse Rate 111 H 99 Respiratory 18 17 Rate Blood Pressure 163/101 183/124 161/104 O2 Sat by Pulse 98 98 Oximetry Disposition Clinical Impression: Hypertension Disposition: HOME SELF-CARE Condition: Good Instructions (If sedation given, give patient instructions): Acute Headache (ED), Hypertension (ED) Prescriptions: cloNIDine HCL [Catapres] 0.2 mg PO Q8H PRN #21 tablet PRN Reason: Hypertension Is patient prescribed a controlled substance at d/c from ED?: No Referrals: Shayne Cisneros DO [Primary Care Provider] - 1-2 days
[2021-10-23] MEDS ORDERED: cloNIDine HCL 0.2 MG TAB PO STA (01:18)
[2021-10-23 01:19] VITALS: PULSE 99; RESP 17
[2021-10-23] MEDS ORDERED: ACETAMINOPHEN TAB 325 MG TAB PO STA (01:19)
[2021-10-23 02:44] VITALS: BP 135/93
== END 2021-10-23 02:45 | disposition home or self-care (01) ==
LOC: EC 22:11
DX: I10 Essential (primary) hypertension (principal); K21.9 Gastro-esophageal reflux disease without esophagitis; M06.9 Rheumatoid arthritis, unspecified; F41.9 Anxiety disorder, unspecified; F32.A Depression, unspecified; Z87.891 Personal history of nicotine dependence; Z88.5 Allergy status to narcotic agent; Z79.899 Other long term (current) drug therapy
CPT/HCPCS: 99283

== ENCOUNTER → 2022-10-23 | Outpatient (CLI) | payer MEDICAID ==
[2022-10-23 20:55] LABS: Basophils # (A) 0.06 X 10*3/uL (0.00-0.10); Basophils % (A) 0.9 %; Eosinophils # (A) 0.19 X 10*3/uL (0.04-0.35); Eosinophils % (A) 2.7 %; HGB 13.9 g/dL (12.0-15.0); Immature Grans, Automated 0.1 %; Lymphocytes # (A) 2.23 X 10*3/uL (0.90-5.00); Lymphocytes % (A) 31.7 %; MCH 29.1 pg (27.0-32.0); MCHC 32.3 g/dL (32.0-37.0); MCV 90.1 fL (80.0-97.0); Mean Platelet Volume 10.5 fL (9.5-12.2); Monocytes # (A) 0.47 X 10*3/uL (0.20-1.00); Monocytes % (A) 6.7 %; NRBC Per 100 WBC 0 /100 WBCS (0.0-0.0); Neutrophils # (A) 4.08 X 10*3/uL (1.80-7.70); Neutrophils % (A) 57.9 %; Platelet Count 275 X 10*3/uL (140-440); RBC 4.77 X 10*6/uL (4.10-5.20); RDW 13.7 % (11.5-14.5); WBC 7.04 X 10*3/uL (4.50-10.00)
[2022-10-23 21:17] LABS: African American GFR (CKD) 92.9 (60.0-200.0); Anion Gap 12.6 mmol/L (10.00-18.00); BUN/Creat Ratio 17.13 Ratio (12.00-20.00); Blood Urea Nitrogen 13.7 mg/dL (9.0-27.0); Calcium 9.8 mg/dL (8.7-10.3); Carbon Dioxide 24.4 mmol/L (20.0-27.5); Non-African American GFR(CKD) 80.1 (60.0-200.0); Potassium 4.6 mmol/L (3.5-5.5)
== END | disposition home or self-care (01) ==
LOC: LABPAT 12:16
PROVIDERS: ATTEND Orthopaedic Surgery
DX: Z01.812 Encounter for preprocedural laboratory examination (principal); M75.41 Impingement syndrome of right shoulder; I44.4 Left anterior fascicular block; R94.31 Abnormal electrocardiogram [ECG] [EKG]
CPT/HCPCS: 80048; 85025; 93005

== ENCOUNTER 2022-10-31 07:33 | Day surgery (SDC) | payer MEDICAID ==
--- NOTE | 2022-10-30 09:16 | P.HPOR ---
History of Present Illness H&P Date: 10/30/22 Chief Complaint: Right shoulder pain The patient is a 61-year-old [id number] female who presents with right shoulder pain after previous injury last November. She was lifting her mother when she felt a pull in her shoulder. She has had pain ever since. She is having anterior/ lateral pain with overhead activity and at night. She's tried medications, therapy, and an injection with persistence of her symptoms. Review of Systems As per HPI Past Medical History Past Medical History: COPD, GERD/Reflux, Hypertension, Osteoarthritis (OA), Pneumonia, Rheumatoid Arthritis (RA) Additional Past Medical History / Comment(s): DIVERTICULOSIS, perforated bowel 2020, facial cellulitis 2020, kidney stone, hx. brain aneurysm 2021 History of Any Multi-Drug Resistant Organisms: MRSA Date of last positivie culture/infection: Jun 2020 MDRO Source:: face Past Surgical History: Bowel Resection, Hysterectomy, Joint Replacement, Orthopedic Surgery Additional Past Surgical History / Comment(s): KNEE SURGERIES LEFT X 9, left knee replaced, D & C, bowel resection w/colostomy & then later reversal, ureteral stent w/lithotripsy, pipeline embolization of brain aneurysm October 2021 Past Anesthesia/Blood Transfusion Reactions: No Reported Reaction, Family History of Problems w/ Anesthesia Additional Past Anesthesia/Blood Transfusion Reaction / Comment(s): daughter passed out after wisdom teeth removed Smoking Status: Former smoker - Past Family History Mother Family Medical History: Diabetes Mellitus, Hypertension Father Family Medical History: Hypertension, Renal Disease Brother(s) Family Medical History: Diabetes Mellitus Sister(s) Family Medical History: Diabetes Mellitus Daughter(s) Family Medical History: No Reported History Son(s) Family Medical History: No Reported History Medications and Allergies Home Medications Medication Instructions Recorded Confirmed Type Pantoprazole [Protonix] 40 mg PO Q2D 12/13/15 10/29/22 History amLODIPine BESYLATE [Amlodipine 5 mg PO DAILY 12/13/15 10/29/22 History Besylate] Etanercept [Enbrel Sureclick] 50 mg SQ FR #0 11/01/20 10/29/22 Rx ALPRAZolam [Xanax] 2 mg PO BID PRN 11/26/20 10/29/22 History FLUoxetine HCL [PROzac] 20 mg PO Q2D 02/22/21 10/29/22 History cloNIDine HCL [Catapres] 0.2 mg PO Q8H PRN #21 tablet 10/23/21 10/29/22 Rx Aspirin 81 mg PO DAILY 10/29/22 10/29/22 History FLUoxetine HCL [PROzac] 30 mg PO Q2D 10/29/22 10/29/22 History Allergies Allergy/AdvReac Type Severity Reaction Status Date / Time hydrocodone [From Vicodin] AdvReac Unknown sweating,blood Verified 10/29/22 11:43 pressure,n&v,dizziness oxycodone [From Percocet] AdvReac Unknown sweating,bloodpressure Verified 10/29/22 11:43 drops,n/v, dizziness fentanyl AdvReac Vomiting Verified 10/29/22 11:43 hydromorphone [From Dilaudid] AdvReac sweating, Verified 10/29/22 11:43 blood pressure dropped, n/v,dizziness Physical Examination - Shoulder right Tenderness with palpation: anterior Pain: with abduction, with forward flexion ROM: forward flexion: 140 degrees ROM: internal rotation: lower lumbar ROM: external rotation: 50 degrees Crepitus with motion: Yes Strength: abduction: 5/5 (5-/5) Strength: external rotation: 5/5 (5-/5) Tests: internal impingement tests: positive, external impingment tests: positive Results The patient is a well-developed well-nourished female approximately 5 foot 4, 162 pounds. HEENT exam is nonfocal, neck is supple. She is tender about the right shoulder anterior subacromial space. There is moderate subacromial crepitus. Her distal neurovascular exam appears intact right upper extremity. - Diagnostic results Shoulder MRI: image reviewed (Right shoulder MRI is reviewed and shows evidence of a small anterior rotator cuff tear along with a moderate effusion) Assessment and Plan Assessment: Right shoulder impingement with symptomatically rotator cuff tear Right shoulder synovitis with history of rheumatoid arthritis Plan: I talked the patient length regarding her condition along with treatment options. This point she's quite symptomatic despite previous conservative measures. After thorough discussion chest proceed with surgery. We will plan to proceed with right shoulder arthroscopic evaluation with probable subacromial decompression, possible rotator cuff repair.
[~2022-10-31 07:33] MED LIST changes: -ACETAMINOPHEN TAB 500 MG TAB PO PRN; -ALVIMOPAN 12 MG CAPSULE PO PRN; -HEPARIN SODIUM,PORCINE/PF 5,000 UNIT/0.5 ML SYRINGE SQ PRN; +LACTATED RINGERS 1,000 ML IV SCH; -LIDOCAINE 1% (10MG/ML) FOR IV START INTRADERMA PRN; +SCOPOLAMINE 1 MG/72 HR PATCH TRANSDERM ONE; -metroNIDAZOLE-NS PMX 500 MG in SALINE 1 100ML.BAG IVPB PRN
[2022-10-31] MEDS ORDERED: MIDAZOLAM 2 MG/2 ML VIAL IVP ONE (08:38)
[2022-10-31] MEDS ORDERED: ROPIVACAINE 5 MG/ML 30 ML VIAL ONE (08:45)
[2022-10-31] MEDS ORDERED: LIDOCAINE 2% INJ 20 MG/ML (2 ML VIAL) ONE (08:45)
[2022-10-31] MEDS ORDERED: MIDAZOLAM 2 MG/2 ML VIAL ONE (08:45)
[2022-10-31] MEDS ORDERED: PROPOFOL 10 MG/ML 20 ML VIAL IV ONE (08:45)
[2022-10-31] MEDS ORDERED: SUCCINYLCHOLINE CHLORIDE 200 MG/10 ML VIAL IV ONE (08:45)
[2022-10-31] MEDS ORDERED: KETOROLAC 15 MG/ML 1 ML VIAL ONE (08:45)
[2022-10-31] MEDS ORDERED: PHENYLEPHRINE-0.9% NACL SYG 1,000 MCG/10 ML SYRINGE ONE (08:45)
[2022-10-31] MEDS ORDERED: DEXAMETHASONE SOD PHOSPHATE 4 MG/ML 1 ML VIAL ONE (08:45)
--- NOTE | 2022-10-31 09:51 | P.ANPRN ---
Procedure Note - Anesthesia - Nerve Block Performed Right Interscalene Single Time Out Performed: Yes Date of Procedure: 10/31/22 Procedure Start Time: 08:37 Procedure Stop Time: 08:47 Location of Patient: PreOp Indication: Acute Post-Operative Pain, Requested by Surgeon Sedation Type: Sedate with meaningful contact maintained Preparation: Sterile Prep, Sterile Dressing Position: Sitting Catheter: None Needle Types: Facet Needle Gauge: 21 Ultrasound used to visualize needle placement: Yes Ultrasound used to observe medication spread: Yes Injectate: 0.5% Ropivacaine (see comment for volume) (30 ml + decadron 4 mg) Blood Aspirated: No Pain Paresthesia on Injection Noted: No Resistance on Injection: Normal Image Stored and Saved: Yes Events: Uneventful and Well Tolerated
[2022-10-31] MEDS ORDERED: EPINEPHrine (PF) 1 ML in SODIUM CHLORIDE 0.9% IRRIGATIO 3,000 ML IRRIGATION ONE ×7 (09:55→09:56)
[2022-10-31] MEDS ORDERED: LACTATED RINGERS 1,000 ML IV ONE (10:44)
--- NOTE | 2022-10-31 10:57 | P.OP ---
Date of Procedure: 10/31/22 Preoperative Diagnosis: Right shoulder impingement/rotator cuff tear Postoperative Diagnosis: Same in addition to 4 cm retractor rotator cuff tear, high-grade partial- thickness tear intra-articular portion long head of the biceps Procedure(s) Performed: Right shoulder arthroscopic subacromial decompression/rotator cuff repair/biceps tenotomy Implants: Arthrex 4.75 mm lock anchor 2, 5.5 motor swivel lock anchor 2 Anesthesia: SHAHBAZ, regional Surgeon: Jimmy Youssef Draw Furnace Tender #1: Azam Linton Estimated Blood Loss (ml): 10 Pathology: none sent Condition: stable Disposition: PACU Indications for Procedure: Patient is a 61-year-old female who presents with persistent right shoulder pain and weakness after a previous injury despite attempted conservative measures. A discussion of the risks and benefits of operative intervention versus continued conservative measures was made with patient. She opted to proceed. Operative risks to include infection, neurovascular injury, development of blood clots, possible tendon rerupture, possible postoperative stiffness, and possible need for subsequent procedures was discussed. Informed consent was obtained. Operative Findings: As below Description of Procedure: The patient was brought to the operating room, and after induction of general anesthesia was placed in a beachchair position. A preoperative interscalene bl ock was placed for postoperative analgesia. I examined the right shoulder. There was no gross block to passive motion or gross glenohumeral instability. The right upper extremity was prepped and draped in normal fashion. The bony outlines the acromion, distal clavicle, and coracoid process were outlined with a skin marker. The glenohumeral joint was inflated with 50 mL of saline utilizing a spinal needle from posterior approach. A posterior portal was made through a 5 mm skin incision 1 cm medial and inferior to the posterior lateral border time. A blunt trocar was used to easily into the joint. Diagnostic arthroscopy was performed. An anterior portal was made just lateral to the coracoid process entering the joint above the subscapularis tendon. The subscapularis tendon appeared to be intact. Anterior labrum was intact. The inferior recess was inspected. The posterior labrum was intact. There was a high-grade partial-thickness tear of the long head of the biceps involving interarticular portion. It was elected to proceed with release at this point. This was released from the superior labrum with electrocautery and was allowed to retract to the bicipital groove. On inspection the rotator cuff, a full- thickness retracted tear involving the supraspinatus and infraspinatus was noted. The arthroscope was then placed into the subacromial space. A lateral portal was made 2 centimeters inferior to the anterior lateral border of the acromion. The rotator cuff was then mobilized with a traction suture. This was then brought back to the greater tuberosity. The soft tissue on the undersurface of the acromion was debrided with a motorized shaver and electrocautery clearly defining the anterior medial and lateral borders as well as the distal clavicle. An anterior inferior acromioplasty was performed with a motorized anne starting anterolateral, then extending this posteriorly, then extending this medially. I converted to a flat acromion and this was verified in the posterior and lateral viewing portals. A posterior lateral portal was then made just off the lateral posterior edge of the acromion and utilized as a viewing portal. The greater tuberosity was lightly decorticating with a shaver down to a bleeding bony surface. An accessory superior lateral portals made just off the lateral edge of the acromion for anchor placement. 2 anchors were then placed just off the articular surface with the appropriate starting awl. 4.75 mm anchors preloaded with #2 fiber tape were placed. Good purchase was obtained. These fiber tapes were then passed the rotator cuff with a scorpion suture passer. A lateral row was created crisscrossing these tapes. 5.5 mm swivel lock anchors x2 were placed laterally. Good purchase was obtained. Final arthroscopic view showed adequate compression at the footprint. The arthroscope was then removed. The portals were closed with simple 3-0 nylon sutures. A sterile dressing was applied in addition to an abductor brace. The patient was then awoken from general anesthesia and transferred to recovery room in good condition. Blood loss was estimated at 10 mL. No complications were incurred. Sponge and needle counts were correct in the case. Vega HASSAN assisted and the major components of the case to include arm positioning, anchor placement, and rotator cuff repair.
[2022-10-31 11:15] VITALS: TEMP 97.5
[2022-10-31 12:13] VITALS: RESP 20
[2022-10-31 12:22] VITALS: BP 155/90; PULSE 88
== END 2022-10-31 12:45 | disposition home or self-care (01) ==
LOC: OR 07:33
PROVIDERS: ATTEND Orthopaedic Surgery
DX: M75.121 Complete rotator cuff tear or rupture of right shoulder, not specified as traumatic (principal); S46.111A Strain of muscle, fascia and tendon of long head of biceps, right arm, initial encounter; M75.41 Impingement syndrome of right shoulder; M65.811 Other synovitis and tenosynovitis, right shoulder; X50.0XXA Overexertion from strenuous movement or load, initial encounter; J44.9 Chronic obstructive pulmonary disease, unspecified; I10 Essential (primary) hypertension; K21.9 Gastro-esophageal reflux disease without esophagitis; M19.90 Unspecified osteoarthritis, unspecified site; M06.9 Rheumatoid arthritis, unspecified; Z87.19 Personal history of other diseases of the digestive system; Z87.442 Personal history of urinary calculi; Z86.14 Personal history of Methicillin resistant Staphylococcus aureus infection; Z87.891 Personal history of nicotine dependence; Z79.82 Long term (current) use of aspirin; Z79.899 Other long term (current) drug therapy; Z88.5 Allergy status to narcotic agent; Z88.8 Allergy status to other drugs, medicaments and biological substances; Z96.642 Presence of left artificial hip joint
CPT/HCPCS: 29827; 29826; 64415; C1713 ×4; C1894; J2250; J0330; J1100; J0690; J0171; J2795; J1885; J2370; J2704; J2001

== ENCOUNTER → 2023-02-13 | Outpatient (CLI) | payer MEDICAID ==
--- NOTE | 2023-02-16 10:23 | MR ---
EXAMINATION TYPE: MR brain/cspine wo DATE OF EXAM: 02/13/2023 COMPARISON: None HISTORY: Brain aneurysm, history of brain stent, dizziness, neck pain CONTRAST: Performed utilizing 0 mL intravenous Gadavist gadolinium contrast. TECHNIQUE: Multiplanar, multiecho imaging on a 3.0 Fabi magnet is performed through the brain. Stud y is performed within 24 hours of arrival to the hospital. The craniovertebral junction is normal. The pituitary is normal. Diffusion-weighted imaging is performed. No abnormal hyperintensity is present to suggest an acute i ntracranial infarct or acute ischemic change. There are a few punctate hyperintensities in deep white matter not out of portion. Findings are nonsp ecific. White matter ischemic changes be considered differential. On gradient images there is a small hypointense focus of increased size posterior right frontal lobe. Series 602, image 122. Tiny amount of prior hemorrhage at this location may be present. This extend s superiorly. Some additional blooming artifact may be present in the left parietal lobe. Series 602 image 413, and adjacent to the anterior falx. Given reported prior intervention, consider foreign bod y artifact. Ventricles and sulci are appropriate for the patient age. IMPRESSION: 1. Minimal chronic appearing white matter ischemic type changes. 2. Extra-axial foci blooming artifact suggestive prior underlying hemorrhage discussed above. EXAMINATION TYPE: MR brain/cspine wo DATE OF EXAM: 02/13/2023 COMPARISON: None HISTORY: Brain aneurysm, history of brain stent, dizziness, neck pain CONTRAST: Performed utilizing 0 mL intravenous gadolinium contrast. TECHNIQUE: Multiplanar multiecho imaging on a 3.0 Fabi magnet is performed through the cervical spin e. FINDINGS: The craniovertebral junction is normal. Vertebral body alignment is normal. C7-T1: No focal disc herniation or significant disc bulge is evident. No spinal canal stenosis or n eural foraminal stenosis is present. C6-7: No focal disc herniation or significant disc bulge is evident. No spinal canal stenosis or nia ral foraminal stenosis is present. C5-6: Large broad-based disc bulge is present with moderate anterior thecal sac compression. Cord fla ttening may be present. Spinal canal stenosis measuring 0.7 cm is present. Signal abnormality within the spinal cord is not identified. Appears to be moderate bilateral foraminal.. C4-5: Mild broad-based disc bulge is present slightly greater to the left paracentral region. Correla te with radiculopathy. No AP spinal canal stenosis present. As approximation of the spinal cord witho ut cord deformity. Neural foramen are patent. C3-4: No focal disc herniation or significant disc bulge is evident. No spinal canal stenosis or nia ral foraminal stenosis is present. C2-3: No focal disc herniation or significant disc bulge is evident. No spinal canal stenosis or nia ral foraminal stenosis is present. IMPRESSION: 1. Broadbase disc bulge with moderate anterior thecal sac compression C5-6. This has cord contact and some cord flattening may be present with AP spinal canal stenosis. 2. Left paracentral disc bulge C4-5 without spinal canal stenosis or cord deformity. Correlate for ra dicular symptoms.
== END | disposition home or self-care (01) ==
LOC: RADMRIMAIN 17:48
PROVIDERS: ATTEND Family Medicine
DX: I67.1 Cerebral aneurysm, nonruptured (principal); I67.82 Cerebral ischemia; M50.221 Other cervical disc displacement at C4-C5 level
CPT/HCPCS: 70551; 72141

== ENCOUNTER 2023-07-02 04:39 | Emergency (ER) | payer MEDICAID ==
[2023-07-02 05:06] VITALS: RESP 18
[2023-07-02 05:44] LABS: Basophils % (A) 1 %; Eosinophils # (A) 0.2 k/uL (0-0.7); Eosinophils % (A) 4 %; HCT 46.7 % (34.0-46.0); HGB 15.3 gm/dL (11.4-16.0); Lymphocytes # (A) 1.9 k/uL (1.0-4.8); Lymphocytes % (A) 29 %; MCH 29.7 pg (25.0-35.0); MCHC 32.7 g/dL (31.0-37.0); MCV 90.8 fL (80.0-100.0); Mean Platelet Volume 7.9; Monocytes # (A) 0.3 k/uL (0-1.0); Monocytes % (A) 5 %; Neutrophils # (A) 3.9 k/uL (1.3-7.7); Neutrophils % (A) 60 %; Platelet Count 257 k/uL (150-450); RBC 5.15 m/uL (3.80-5.40); RDW 13.6 % (11.5-15.5); WBC 6.5 k/uL (3.8-10.6)
[2023-07-02] MEDS ORDERED: LIDOCAINE 1% INJ 10MG/ML (20 ML MDV) SQ ONE (06:04)
[2023-07-02 06:06] LABS: ALT 31 U/L (4-34); AST 32 U/L (14-36); African American GFR (CKD) >90 (>60 ml/min/1.73 sqM); Albumin 4.4 g/dL (3.5-5.0); Alkaline Phosphatase 106 U/L (38-126); Anion Gap 6 mmol/L; Blood Urea Nitrogen 12 mg/dL (7-17); Calcium 9.7 mg/dL (8.4-10.2); Carbon Dioxide 24 mmol/L (22-30); Chloride 112 mmol/L (98-107); Glucose 112 mg/dL (74-99); Non-African American GFR(CKD) >90 (>60 ml/min/1.73 sqM); Potassium 4.9 mmol/L (3.5-5.1); Sodium 142 mmol/L (137-145); Total Bilirubin 0.6 mg/dL (0.2-1.3); Total Protein 7.7 g/dL (6.3-8.2)
[2023-07-02] MEDS ORDERED: SULFAMETHOX-TMP 800-160MG 1 EACH TAB PO STA (07:35)
[2023-07-02] MEDS ORDERED: TICAGRELOR 90 MG TAB PO STA (07:35)
[2023-07-02] MEDS ORDERED: amLODIPine 5 MG TAB PO STA (07:35)
[2023-07-02] MEDS ORDERED: CEPHALEXIN 500 MG CAP PO STA (07:36)
--- NOTE | 2023-07-02 07:46 | ED ---
General Adult HPI - General Chief complaint: Skin/Abscess/Foreign Body Stated complaint: Abcess-rt armpit Time Seen by Provider: 07/02/23 05:35 Source: patient Mode of arrival: ambulatory Limitations: no limitations - History of Present Illness Initial comments: 62-year-old female presents to the emergency department reporting possible abscess in her right armpit. States that she noticed the bumps a couple of days ago. She denies having any drainage from the site. One of the bumps has a central scab. She denies any fevers. No nausea or vomiting. No history of MRSA. Patient has recently shaved the area. She denies any masses in her left axilla or groin. No other alleviating, precipitating or modifying factors - Related Data Home Medications Medication Instructions Recorded Confirmed Pantoprazole [Protonix] 40 mg PO Q2D 12/13/15 10/31/22 amLODIPine BESYLATE [Amlodipine 5 mg PO DAILY 12/13/15 10/31/22 Besylate] ALPRAZolam [Xanax] 2 mg PO BID PRN 11/26/20 10/31/22 FLUoxetine HCL [PROzac] 20 mg PO Q2D 02/22/21 10/31/22 Aspirin 81 mg PO DAILY 10/29/22 10/31/22 FLUoxetine HCL [PROzac] 30 mg PO Q2D 10/29/22 10/31/22 Previous Rx's Medication Instructions Recorded Etanercept [Enbrel Sureclick] 50 mg SQ FR #0 11/01/20 cloNIDine HCL [Catapres] 0.2 mg PO Q8H PRN #21 tablet 10/23/21 HYDROcodone/APAP 5-325MG [[place] 1 tab PO Q6HR PRN #28 tab 10/31/22 5-325] traMADol HCl [Ultram] 50 mg PO Q6H PRN #28 tab 10/31/22 Cephalexin [Keflex] 500 mg PO Q6HR #28 cap 07/02/23 Sulfamethox-Tmp 800-160Mg [Bactrim 2 each PO Q12HR #28 tab 07/02/23 Ds] Allergies Allergy/AdvReac Type Severity Reaction Status Date / Time oxycodone [From Percocet] AdvReac Unknown sweating,bloodpressure Verified 07/02/23 04:54 drops,n/v, dizziness fentanyl AdvReac Vomiting Verified 07/02/23 04:54 hydromorphone [From Dilaudid] AdvReac sweating, Verified 07/02/23 04:54 blood pressure dropped, n/v,dizziness ondansetron [From Zofran] AdvReac Nausea Verified 07/02/23 04:54 Review of Systems ROS Statement: Those systems with pertinent positive or pertinent negative responses have been documented in the HPI. ROS Other: All systems not noted in ROS Statement are negative. Past Medical History Past Medical History: GERD/Reflux, Hypertension, Pneumonia, Rheumatoid Arthritis (RA) Additional Past Medical History / Comment(s): DIVERTICULOSIS, perforated bowel, facial cellulitis History of Any Multi-Drug Resistant Organisms: None Reported Date of last positivie culture/infection: 11/26/20 ESBL 10/05/20 MRSA MDRO Source:: ESBL URINE, MRSA FACE Past Surgical History: Joint Replacement, Orthopedic Surgery Additional Past Surgical History / Comment(s): KNEE SURGERIES LEFT X 9, left knee replaced, D & C, hysterectomy,. COLECTOMY with reversile, ureter stent, pipeline embolization Past Anesthesia/Blood Transfusion Reactions: No Reported Reaction, Family History of Problems w/ Anesthesia Additional Past Anesthesia/Blood Transfusion Reaction / Comment(s): daughter passed out after wisdom teeth removed Past Psychological History: Anxiety, Depression Smoking Status: Former smoker Past Alcohol Use History: None Reported Past Drug Use History: None Reported - Past Family History Mother Family Medical History: Diabetes Mellitus, Hypertension Father Family Medical History: Hypertension, Renal Disease Brother(s) Family Medical History: Diabetes Mellitus Sister(s) Family Medical History: Diabetes Mellitus Daughter(s) Family Medical History: No Reported History Son(s) Family Medical History: No Reported History General Exam Limitations: no limitations General appearance: alert, in no apparent distress Head exam: Present: atraumatic, normocephalic, normal inspection ENT exam: Present: normal exam, mucous membranes moist Neck exam: Present: normal inspection. Absent: tenderness, meningismus, lymphadenopathy Respiratory exam: Present: normal lung sounds bilaterally. Absent: respiratory distress, wheezes, rales, rhonchi, stridor Cardiovascular Exam: Present: regular rate, normal rhythm, normal heart sounds. Absent: systolic murmur, diastolic murmur, rubs, gallop, clicks GI/Abdominal exam: Present: soft, normal bowel sounds. Absent: distended, tenderness, guarding, rebound, rigid Extremities exam: Present: other (Patient has 2 circumscribed masses in her right axilla that measure 1 and 1.5 cm. They feel indurated. No fluctuance. Larger area has central scab. No masses palpated in the groin or left axilla) Course Vital Signs 07/02/23 07/02/23 04:55 08:08 Temperature 97.6 F 98 F Pulse Rate 117 H 105 H Respiratory 18 18 Rate Blood Pressure 139/99 127/90 O2 Sat by Pulse 96 96 Oximetry Medical Decision Making - Medical Decision Making Was pt. sent in by a medical professional or institution (, [facility], AIRCRAFT INSTRUMENT REPAIRER, urgent care, hospital, or usp...) When possible be specific @ -No Did you speak to anyone other than the patient for history (EMS, parent, family, police, friend...)? What history was obtained from this source @ -No Did you review nursing and triage notes (agree or disagree)? Why? @ -I reviewed and agree with nursing and triage notes Were old charts reviewed (outside hosp., previous admission, EMS record, old EKG, old radiological studies, urgent care reports/EKG's, usp records)? Report findings @ -No old charts were reviewed Differential Diagnosis (chest pain, altered mental status, abdominal pain women, abdominal pain men, vaginal bleeding, weakness, fever, dyspnea, syncope, headache, dizziness, GI bleed, back pain, seizure, CVA, palpatations, mental health, musculoskeletal)? @ -Enlarged lymph node, cellulitis, abscess EKG interpreted by me (3pts min.). @ -Not done X-rays interpreted by me (1pt min.). @ -None done CT interpreted by me (1pt min.). @ -None done U/S interpreted by me (1pt. min.). @ -Bedside ultrasound was performed. It did appear that there was some fluid near the area of concern What testing was considered but not performed or refused? (CT, X-rays, U/S, labs)? Why? @ -None What meds were considered but not given or refused? Why? @ -None Did you discuss the management of the patient with other professionals (professionals i.e. Dr., PA, AIRCRAFT INSTRUMENT REPAIRER, lab, RT, psych nurse, social sciences department chair, worm farm laborer, teacher, project control officer, caseworker)? Give summary @ -No Was smoking cessation discussed for >3mins.? @ -No Was critical care preformed (if so, how long)? @ -No Were there social determinants of health that impacted care today? How? (Homelessness, low income, unemployed, alcoholism, drug addiction, transportation, low edu. Level, literacy, decrease access to med. care, senior living, rehab)? @ -No Was there de-escalation of care discussed even if they declined (Discuss DNR or withdrawal of care, Hospice)? DNR status @ -No What co-morbidities impacted this encounter? (DM, HTN, Smoking, COPD, CAD, Cancer, CVA, ARF, Chemo, Hep., AIDS, mental health diagnosis, sleep apnea, morbid obesity)? @ -None Was patient admitted / discharged? Hospital course, mention meds given and route, prescriptions, significant lab abnormalities, going to OR and other pertinent info. @ -Discharge. Upon arrival patient was placed into room 30. Thorough history and physical exam was performed. I did ultrasound the area. It does appear that there is some fluid and therefore I did request to perform an I&D. Patient was agreeable to this. Area was anesthetized using 5 cc of lidocaine without epinephrine. I used a 11 blade scalpel to make the area over the scab. A small amount of blood was released however no purulent drainage. Informed the patient that there may be concern that this area is an enlarged lymph node. I will place her on some antibiotics to see if she has any resolution in her symptoms. If she does not, I do recommend formal ultrasound through her primary care office. Patient understood this. She was given written and verbal discharge instructions and discharged home in stable condition Undiagnosed new problem with uncertain prognosis? @ -Yes Drug Therapy requiring intensive monitoring for toxicity (Heparin, Nitro, Insulin, Cardizem)? @ -No Were any procedures done? @ -Attempted I&D Diagnosis/symptom? @ -2 right axillary masses, cellulitis, possibly enlarged lymph nodes Acute, or Chronic, or Acute on Chronic? @ -Acute Uncomplicated (without systemic symptoms) or Complicated (systemic symptoms)? @ -Complicated Side effects of treatment? @ -No Exacerbation, Progression, or Severe Exacerbation? @ -No Poses a threat to life or bodily function? How? (Chest pain, [place], [place], pneumonia, PE, COPD, DKA, ARF, appy, cholecystitis, CVA, Diverticulitis, Homicidal, Suicidal, threat to staff... and all critical care pts) @ -No - Lab Data Result diagrams: 07/02/23 05:29 07/02/23 05:29 Lab Results 07/02/23 07/02/23 Range/Units 05:29 05:29 WBC 6.5 (3.8-10.6) k/uL RBC 5.15 (3.80-5.40) m/uL Hgb 15.3 (11.4-16.0) gm/dL Hct 46.7 H (34.0-46.0) % MCV 90.8 (80.0-100.0) fL MCH 29.7 (25.0-35.0) pg MCHC 32.7 (31.0-37.0) g/dL RDW 13.6 (11.5-15.5) % Plt Count 257 (150-450) k/uL MPV 7.9 Neutrophils % 60 % Lymphocytes % 29 % Monocytes % 5 % Eosinophils % 4 % Basophils % 1 % Neutrophils # 3.9 (1.3-7.7) k/uL Lymphocytes # 1.9 (1.0-4.8) k/uL Monocytes # 0.3 (0-1.0) k/uL Eosinophils # 0.2 (0-0.7) k/uL Basophils # 0.0 (0-0.2) k/uL Sodium 142 (137-145) mmol/L Potassium 4.9 (3.5-5.1) mmol/L Chloride 112 H (98-107) mmol/L Carbon Dioxide 24 (22-30) mmol/L Anion Gap 6 mmol/L BUN 12 (7-17) mg/dL Creatinine 0.68 (0.52-1.04) mg/dL Est GFR (CKD-EPI)AfAm >90 (>60 ml/min/1.73 sqM) Est GFR (CKD-EPI)NonAf >90 (>60 ml/min/1.73 sqM) Glucose 112 H (74-99) mg/dL Calcium 9.7 (8.4-10.2) mg/dL Total Bilirubin 0.6 (0.2-1.3) mg/dL AST 32 (14-36) U/L ALT 31 (4-34) U/L Alkaline Phosphatase 106 (38-126) U/L Total Protein 7.7 (6.3-8.2) g/dL Albumin 4.4 (3.5-5.0) g/dL Disposition Clinical Impression: Axillary mass Disposition: HOME SELF-CARE Condition: Stable Instructions (If sedation given, give patient instructions): Cellulitis (ED) Additional Instructions: Try the antibiotics for 72 hours to see if your symptoms improve. If they do not, have your PCP order a formal ultrasound of your axilla. Prescriptions: Sulfamethox-Tmp 800-160Mg [Bactrim Ds] 2 each PO Q12HR #28 tab Cephalexin [Keflex] 500 mg PO Q6HR #28 cap Is patient prescribed a controlled substance at d/c from ED?: No Referrals: Shayne Cisneros DO [Primary Care Provider] - 1-2 days Time of Disposition: 07:46
[2023-07-02 08:20] VITALS: BP 127/90; PULSE 105; TEMP 98
== END 2023-07-02 08:11 | disposition home or self-care (01) ==
LOC: EC 04:39
DX: N63.20 Unspecified lump in the left breast, unspecified quadrant (principal); I10 Essential (primary) hypertension; K21.9 Gastro-esophageal reflux disease without esophagitis; F32.A Depression, unspecified; F41.9 Anxiety disorder, unspecified; Z87.891 Personal history of nicotine dependence; Z79.82 Long term (current) use of aspirin; Z79.899 Other long term (current) drug therapy; Z88.5 Allergy status to narcotic agent; Z88.8 Allergy status to other drugs, medicaments and biological substances
CPT/HCPCS: 36415; 80053; 85025; 99283; J2001

== ENCOUNTER → 2023-07-14 | Outpatient (CLI) | payer MEDICAID ==
--- NOTE | 2023-07-14 16:21 | US ---
EXAMINATION TYPE: US axilla RT DATE OF EXAM: 07/14/2023 COMPARISON: NONE CLINICAL INDICATION: Female, 62 years old with history of R22.9 LOCALIZED SWELLING, MASS AND LUMP, UN SPECIFI; Patient states she has 2 palpable areas in her right armpit that she has felt for about a we ek Technique: Grayscale imaging the right arm PET. Findings Right axilla: 2 lesions areas seen with hyperechoic rims and central hypoechogenicity possibly fluid measuring 0.8 x 0.6 x 0.8cm and 0.7 x 0.5 x 0.6cm IMPRESSION: Axillary soft tissue lesions with central fluid suggested. If not recently performed complete mammogr aphic workup recommended. Also consideration for CT imaging of the chest with IV contrast with palpab le marker placement.
== END | disposition home or self-care (01) ==
LOC: RADUSWWP 14:51
PROVIDERS: ATTEND Family Medicine
DX: R22.9 Localized swelling, mass and lump, unspecified (principal)

== ENCOUNTER → 2023-07-30 | Outpatient (CLI) | payer MEDICAID ==
--- NOTE | 2023-07-30 14:22 | MM ---
Reason for Exam: Clinical finding. Last mammogram was performed 2 year(s) and 3 month(s) ago. Patient History: Menarche at age 13. First Full-Term at age 17. Postmenopausal. Risk Values: Lynda 5 year model risk: 1.1%. NCI Lifetime model risk: 5.2%. Prior Study Comparison: 09/02/2018 Bilateral Screening Mammogram, [facility]. 09/08/2018 Left Diagnostic Mammogram, [facility]. 04/22/2021 Bilateral Diagnostic Mammogram, [facility]. Tissue Density: The breast tissue is heterogeneously dense. This may lower the sensitivity of mammography. Findings: Analyzed By CAD. No significant change from prior exams. The previous central asymmetric density on the left has resolved. Overall Assessment: Benign, BI-RAD 2 Management: Screening Mammogram of both breasts in 1 year. . Results were given to the patient verbally at the time of exam. Patient should continue monthly self-breast exams. A clinical breast exam by your physician is recommended on an annual basis. This exam should not preclude additional follow-up of suspicious palpable abnormalities. Note on Lynda scores and lifetime risk: 1. A Lynda score greater than 3% is considered moderate risk. If this is the case, consider specialist referral to assess eligibility for a risk reducing agent. 2. If overall lifetime risk for the development of breast cancer is 20% or higher, the patient may qualify for future screening with alternating mammogram and breast MRI. Electronically signed and approved by: Leah Joseph M.D. Radiologist
== END | disposition home or self-care (01) ==
LOC: RADMAMWWP 13:53
PROVIDERS: ATTEND Family Medicine
DX: R92.333 Mammographic heterogeneous density, bilateral breasts (principal); N64.4 Mastodynia; Z78.0 Asymptomatic menopausal state
CPT/HCPCS: 77062; 77066

== ENCOUNTER → 2023-07-30 | Outpatient (CLI) | payer MEDICAID ==
--- NOTE | 2023-07-31 08:51 | CT ---
EXAMINATION TYPE: CT angio head CT DLP: 2120.10 mGycm, Automated exposure control for dose reduction was used. DATE OF EXAM: 07/30/2023 2:34 PM COMPARISON: 10/21/2021.. CLINICAL INDICATION:Female, 62 years old with history of I67.1 cerebral aneurysm; PHH, F/U CEREBRAL A NEURYSM. HX OF PIPELINE EMBOLIZATION. TECHNIQUE: CT angio head Axially acquired helical CT angiogram was obtained. Axial images are supplem ented with 3D reconstructions which were post-processed at an independent workstation. NASCET criteri a used. Contrast used:80ML mL of Isovue 370 with IV Contrast, none Oral contrast used: none FINDINGS: Vertebral arteries: The vertebral arteries are patent. Vertebral artery dominance: Left Basilar artery: The basilar artery is intact. The basilar artery bifurcation is normal. Internal Carotid arteries: Right internal carotid artery stent graft is present and patent. The cervi mahesh, petrous, cavernous and supraclinoid segments are normal. MY: Patent with no evidence of aneurysm. ACOM: Present without evidence of aneurysm. MCA: Patent with no evidence of aneurysm. GUIDANCE SERVICES COORDINATOR: Patent with no evidence of aneurysm. PCOM: Hypoplastic bilaterally. Dural sinuses: Patent. IMPRESSION: Patent right internal carotid artery stent graft. No new aneurysms no evidence for high-grade stenosi s.
== END | disposition home or self-care (01) ==
LOC: RADCTMAIN 13:17
PROVIDERS: ATTEND Psychiatry & Neurology Vascular Neurology
DX: I67.1 Cerebral aneurysm, nonruptured (principal); Z95.828 Presence of other vascular implants and grafts
CPT/HCPCS: 70496; Q9967

== ENCOUNTER → 2023-10-30 | Outpatient (CLI) | payer MEDICAID ==
[2023-10-30 10:34] LABS: HCT 43.1 % (37.2-46.3); HGB 14.5 g/dL (12.0-15.0); MCH 30.1 pg (27.0-32.0); MCHC 33.6 g/dL (32.0-37.0); MCV 89.4 FL (80.0-97.0); NRBC Per 100 WBC 0 X 10*3/uL (0.00-0.01); Platelet Count 260 X 10*3/uL (140-440); RBC 4.82 X 10*6/uL (4.10-5.20); RDW 12.8 % (11.5-14.5); WBC 4.66 X 10*3/uL (4.50-10.00)
[2023-10-30 11:20] LABS: ALT 33 U/L (8-44); AST 31 U/L (13-35); Albumin 4.3 g/dL (3.8-4.9); Albumin/Globulin Ratio 1.43 Ratio (1.60-3.17); Alkaline Phosphatase 114 U/L (41-126); BUN/Creat Ratio 9.75 Ratio (12.00-20.00); Blood Urea Nitrogen 7.8 mg/dL (9.0-27.0); Calcium 9.4 mg/dL (8.7-10.3); Carbon Dioxide 21.2 mmol/L (21.6-31.8); Chloride 106 mmol/L (96-109); Chol/HDL Ratio 3.15 Ratio; Glucose 113 mg/dL (70-110); LDL Cholesterol,Calculated 121.1 mg/dL (0.0-131.0); Potassium 4.9 mmol/L (3.5-5.5); Sodium 140 mmol/L (135-145); Total Bilirubin 0.4 mg/dL (0.3-1.2); Total Protein 7.3 g/dL (6.2-8.2)
[2023-10-30 11:24] LABS: Erythrocyte Sedimentation Rate 34 mm/Hr (0-30)
[2023-10-30 11:52] LABS: T4, Free (Free Thyroxine) 1.38 ng/dL (0.80-1.80)
[2023-10-30 11:53] LABS: Luteinizing Hormone 50.5 mIU/mL
[2023-10-30 12:29] LABS: Rheumatoid Factor, Qnt >650 IU/mL (0-15)
[2023-10-30 15:48] LABS: Anti-DNA, DS unit <1.0 IU/mL; DNA Double-Stranded Negative (Negative)
== END | disposition home or self-care (01) ==
LOC: LABWHC1 07:30
PROVIDERS: ATTEND Family Medicine
DX: Z00.00 Encounter for general adult medical examination without abnormal findings (principal); M35.9 Systemic involvement of connective tissue, unspecified
CPT/HCPCS: 36415; 80053; 80061; 82306; 82533; 82671; 83002; 83036; 84144; 84439; 84443; 84481; 85027; 85652; 86038; 86225; 86431

== ENCOUNTER → 2023-11-19 | Outpatient (CLI) | payer MEDICAID ==
--- NOTE | 2023-11-19 13:51 | CT ---
CTA head. HISTORY: Right internal carotid artery stent. COMPARISON: 07/30/2023. TECHNIQUE: CT of the head was performed with nonionic IV contrast. Coronal and sagittal reconstructio ns are generated along with MIPS images. FINDINGS: Again noted is right internal carotid artery stent within the carotid siphon. It is patent without st enosis. Intracranially, there is no stenosis, segmental occlusion, sizable aneurysm sac or vascular malformat ion. IMPRESSION:. 1. No change in the right internal carotid artery stent without stenosis. 2. No aneurysms, vascular malformation or occlusive disease intracranially. NASCET criteria was used in interpretation of this exam?
== END | disposition home or self-care (01) ==
LOC: RADCTMAIN 07:49
PROVIDERS: ATTEND Psychiatry & Neurology Vascular Neurology
DX: I67.1 Cerebral aneurysm, nonruptured (principal)
CPT/HCPCS: 70496; Q9967

== ENCOUNTER 2024-03-03 02:12 | Emergency (ER) | payer MEDICAID ==
[2024-03-03 02:15] VITALS: BP 185/115; PULSE 112; RESP 18; TEMP 97.4
--- NOTE | 2024-03-03 02:29 | ED ---
General Adult HPI - General Chief complaint: Skin/Abscess/Foreign Body Stated complaint: Abscess on chin Time Seen by Provider: 03/03/24 02:16 Source: patient, RN notes reviewed, old records reviewed Mode of arrival: ambulatory Limitations: no limitations - History of Present Illness Initial comments: 63-year-old female with several days of erythema and swelling on the left side of her chin. Patient states this started as a pimple and has been freely draining. She noted that there was some surrounding erythema and has history of previous facial cellulitis requiring inpatient treatment. She also has history of MRSA infection. She states that this site has been draining purulent material. No fevers. - Related Data Home Medications Medication Instructions Recorded Confirmed Pantoprazole [Protonix] 40 mg PO Q2D 12/13/15 10/31/22 amLODIPine BESYLATE [Amlodipine 5 mg PO DAILY 12/13/15 10/31/22 Besylate] ALPRAZolam [Xanax] 2 mg PO BID PRN 11/26/20 10/31/22 FLUoxetine HCL [PROzac] 20 mg PO Q2D 02/22/21 10/31/22 Aspirin 81 mg PO DAILY 10/29/22 10/31/22 FLUoxetine HCL [PROzac] 30 mg PO Q2D 10/29/22 10/31/22 Previous Rx's Medication Instructions Recorded Etanercept [Enbrel Sureclick] 50 mg SQ FR #0 11/01/20 cloNIDine HCL [Catapres] 0.2 mg PO Q8H PRN #21 tablet 10/23/21 HYDROcodone/APAP 5-325MG [Acme 1 tab PO Q6HR PRN #28 tab 10/31/22 5-325] traMADol HCl [Ultram] 50 mg PO Q6H PRN #28 tab 10/31/22 Cephalexin [Keflex] 500 mg PO Q6HR #28 cap 07/02/23 Sulfamethox-Tmp 800-160Mg [Bactrim 2 each PO Q12HR #28 tab 07/02/23 Ds] Cephalexin [Keflex] 500 mg PO Q6HR 10 Days #40 cap 03/03/24 Sulfamethox-Tmp 800-160Mg [Bactrim 1 tab PO Q12HR #28 tab 03/03/24 DS 800-160 mg] Allergies Allergy/AdvReac Type Severity Reaction Status Date / Time oxycodone [From Percocet] AdvReac Unknown sweating,bloodpressure Verified 03/03/24 02:15 drops,n/v, dizziness fentanyl AdvReac Vomiting Verified 03/03/24 02:15 hydromorphone [From Dilaudid] AdvReac sweating, Verified 03/03/24 02:15 blood pressure dropped, n/v,dizziness ondansetron [From Zofran] AdvReac Nausea Verified 03/03/24 02:15 Review of Systems ROS Statement: Those systems with pertinent positive or pertinent negative responses have been documented in the HPI. ROS Other: All systems not noted in ROS Statement are negative. Past Medical History Past Medical History: GERD/Reflux, Hypertension, Pneumonia, Rheumatoid Arthritis (RA) Additional Past Medical History / Comment(s): DIVERTICULOSIS, perforated bowel, facial cellulitis History of Any Multi-Drug Resistant Organisms: None Reported Date of last positivie culture/infection: 11/26/20 ESBL 10/05/20 MRSA MDRO Source:: ESBL URINE, MRSA FACE Past Surgical History: Joint Replacement, Orthopedic Surgery Additional Past Surgical History / Comment(s): KNEE SURGERIES LEFT X 9, left knee replaced, D & C, hysterectomy,. COLECTOMY with reversile, ureter stent, pipeline embolization Past Anesthesia/Blood Transfusion Reactions: No Reported Reaction, Family History of Problems w/ Anesthesia Additional Past Anesthesia/Blood Transfusion Reaction / Comment(s): daughter passed out after wisdom teeth removed Past Psychological History: Anxiety, Depression Smoking Status: Former smoker Past Alcohol Use History: None Reported Past Drug Use History: None Reported - Past Family History Mother Family Medical History: Diabetes Mellitus, Hypertension Father Family Medical History: Hypertension, Renal Disease Brother(s) Family Medical History: Diabetes Mellitus Sister(s) Family Medical History: Diabetes Mellitus Daughter(s) Family Medical History: No Reported History Son(s) Family Medical History: No Reported History General Exam Limitations: no limitations General appearance: alert, in no apparent distress Head exam: Present: atraumatic, normocephalic ENT exam: Present: other (Left chin folliculitis with surrounding cellulitis, freely draining, no central fluctuance) Course Vital Signs 03/03/24 02:13 Temperature 97.4 F L Pulse Rate 112 H Respiratory 18 Rate Blood Pressure 185/115 O2 Sat by Pulse 97 Oximetry Medical Decision Making - Medical Decision Making Was pt. sent in by a medical professional or institution (SONYA Monzon, COMMERCIAL ENERGY AUDITOR, urgent care, hospital, or jail...) When possible be specific @ -No Did you speak to anyone other than the patient for history (EMS, parent, family, police, friend...)? What history was obtained from this source @ -No Did you review nursing and triage notes (agree or disagree)? Why? @ -I reviewed and agree with nursing and triage notes Were old charts reviewed (outside hosp., previous admission, EMS record, old EKG, old radiological studies, urgent care reports/EKG's, jail records)? Report findings @ -No old charts were reviewed Differential Diagnosis:, Abscess, cellulitis, Jace's angina, skin and soft tissue infection EKG interpreted by me (3pts min.). @ -As above X-rays interpreted by me (1pt min.). @ -None done CT interpreted by me (1pt min.). @ -None done U/S interpreted by me (1pt. min.). @ -None done What testing was considered but not performed or refused? (CT, X-rays, U/S, labs)? Why? @ -None What meds were considered but not given or refused? Why? @ -None Did you discuss the management of the patient with other professionals (professionals i.e. SONYA Monzon, COMMERCIAL ENERGY AUDITOR, lab, RT, psych nurse, forensic social worker, style advisor, teacher, founder and chief executive officer, piano case maker)? Give summary @ -No Was smoking cessation discussed for >3mins.? @ -No Was critical care preformed (if so, how long)? @ -No Were there social determinants of health that impacted care today? How? (Homelessness, low income, unemployed, alcoholism, drug addiction, transportation, low edu. Level, literacy, decrease access to med. care, [place] [facility], rehab)? @ -No Was there de-escalation of care discussed even if they declined (Discuss DNR or withdrawal of care, Hospice)? DNR status @ -No What co-morbidities impacted this encounter? (DM, HTN, Smoking, COPD, CAD, Cance r, CVA, ARF, Chemo, Hep., AIDS, mental health diagnosis, sleep apnea, morbid obesity)? @ -Previous facial cellulitis and MRSA infection Was patient admitted / discharged? Hospital course, mention meds given and route, prescriptions, significant lab abnormalities, going to OR and other pertinent info. @ -63-year-old female with draining folliculitis and surrounding cellulitis. History of MRSA. Patient took a Bactrim which she had at home prior to arrival. She has been putting Vicks on top of the area. She is instructed to not use any ointments but to apply warm compresses and wash with mild soap. She should continue Bactrim and is prescribed Bactrim and Keflex. Given her previous history she is given strict return parameters to return if her symptoms do worsen. Undiagnosed new problem with uncertain prognosis? @ -No Drug Therapy requiring intensive monitoring for toxicity (Heparin, Nitro, Insulin, Cardizem)? @ -No Were any procedures done? @ -No Diagnosis/symptom? @ -Folliculitis with cellulitis Acute, or Chronic, or Acute on Chronic? @Acute Uncomplicated (without systemic symptoms) or Complicated (systemic symptoms)? @ -Default Side effects of treatment? @ -No Exacerbation, Progression, or Severe Exacerbation? @ -No Poses a threat to life or bodily function? How? (Chest pain, [place], [place], pneumonia, PE, COPD, DKA, ARF, appy, cholecystitis, CVA, Diverticulitis, Homicidal, Suicidal, threat to staff... and all critical care pts) @ -Low risk at this time Disposition Clinical Impression: Facial cellulitis, Folliculitis Disposition: HOME SELF-CARE Condition: Good Instructions (If sedation given, give patient instructions): Abscess (ED) Prescriptions: Sulfamethox-Tmp 800-160Mg [Bactrim DS 800-160 mg] 1 tab PO Q12HR #28 tab Cephalexin [Keflex] 500 mg PO Q6HR 10 Days #40 cap Is patient prescribed a controlled substance at d/c from ED?: No Referrals: Shayne Cisneros DO [Primary Care Provider] - 1-2 days Time of Disposition: 02:29
== END 2024-03-03 02:51 | disposition home or self-care (01) ==
LOC: EC 02:12
CPT/HCPCS: 99282

== ENCOUNTER 2024-03-03 16:28 | Emergency (ER) | payer MEDICAID ==
[2024-03-03 16:47] VITALS: TEMP 98.2
[2024-03-03] MEDS: SODIUM CHLORIDE 0.9% 1,000 ML IV STA (17:26)
[2024-03-03] MEDS: DEXAMETHASONE SOD PHOSPHATE 4 MG/ML 1 ML VIAL IVP STA (17:33)
[2024-03-03] MEDS: KETOROLAC 15 MG/ML 1 ML VIAL IVP STA (17:34)
[2024-03-03 17:39] LABS: Basophils # (A) 0.1 k/uL (0-0.2); Basophils % (A) 1 %; Eosinophils # (A) 0.2 k/uL (0-0.7); Eosinophils % (A) 2 %; HGB 15.3 gm/dL (11.4-16.0); Lymphocytes # (A) 1.7 k/uL (1.0-4.8); Lymphocytes % (A) 15 %; MCH 29.7 pg (25.0-35.0); MCHC 32.5 g/dL (31.0-37.0); MCV 91.1 fL (80.0-100.0); Mean Platelet Volume 7.4; Monocytes # (A) 0.6 k/uL (0-1.0); Monocytes % (A) 5 %; Neutrophils # (A) 8.5 k/uL (1.3-7.7); Neutrophils % (A) 76 %; Platelet Count 302 k/uL (150-450); RBC 5.15 m/uL (3.80-5.40); WBC 11.2 k/uL (3.8-10.6)
[2024-03-03 18:06] LABS: ALT 21 U/L (4-34); AST 26 U/L (14-36); African American GFR (CKD) >90 (>60 ml/min/1.73 sqM); Albumin 4.5 g/dL (3.5-5.0); Alkaline Phosphatase 123 U/L (38-126); Anion Gap 10 mmol/L; Blood Urea Nitrogen 9 mg/dL (7-17); Calcium 9.8 mg/dL (8.4-10.2); Carbon Dioxide 25 mmol/L (22-30); Chloride 107 mmol/L (98-107); Glucose 126 mg/dL (74-99); Non-African American GFR(CKD) 89 (>60 ml/min/1.73 sqM); Potassium 4.4 mmol/L (3.5-5.1); Sodium 142 mmol/L (137-145); Total Bilirubin 0.9 mg/dL (0.2-1.3); Total Protein 7.9 g/dL (6.3-8.2)
--- NOTE | 2024-03-03 18:57 | CT ---
EXAMINATION TYPE: CT soft tissue neck w con DATE OF EXAM: 03/03/2024 COMPARISON: 07/02/2020 HISTORY: infection left side of chin CT DLP: 256.1 mGycm CONTRAST: Patient injected with 100ml mL of Isovue 300. TECHNIQUE: Axial images at 3 mm thick sections. Reconstructed images in the coronal plane and sagitt al plane are reviewed. FINDINGS: Limited CT sections are obtained the lung apices. The lung apices appear clear. Emphysemat ous changes are present. CT neck: The torus tubarius and fossa of Rosenmuller are normal. Chemical Process Project Engineer spaces are normal. Para nasal sinuses and mastoid air cells are clear. Parotid glands appear normal and symmetrical. Submandibular glands, are normal. Parapharyngeal spac es are normal. No suspicious adenopathy is evident. Scattered small submental lymph nodes are presen t. A couple of small submandibular nodes are present. The hypopharynx appears within normal limits. Vocal cord level appear symmetrical. Thyroid as visualized is normal. Osseous structures are normal. Some subtle soft tissue thickening along the left anterior cutaneous soft tissue over the mandible. T here is some mild thickening of the underlying soft tissues. No discrete abscess is identified. Early phlegmon could be considered. Cellulitis is likely within the differential. No discrete abscess evid ent. Does not appear to involve the mandible and dental abscess is unlikely. IMPRESSION: 1. Appears to be some cellulitis along the left anterior jaw at the level of the mandible. Correlate for cellulitis. 2. Mild thickening of the soft tissues under the skin thickening. Phlegmon could be considered. No di screte abscess evident. [facility], , 03/03/2024 6:55 PM
--- NOTE | 2024-03-03 19:26 | ED ---
General Adult HPI - General Chief complaint: Skin/Abscess/Foreign Body Stated complaint: facial cellulitis recheck Time Seen by Provider: 03/03/24 17:05 Source: patient, RN notes reviewed, old records reviewed Mode of arrival: ambulatory Limitations: no limitations - History of Present Illness Initial comments: Patient is a 63-year-old female with past medical history remarkable for hypertension, facial cellulitis who presents emergency department with facial cellulitis. Was seen last night with similar complaints however was evaluate in the waiting room and discharged home with antibiotic prescription. Returns this evening over concern for worsening swelling. She did start her antibiotics at home and is only received today's doses. No history of diabetes. No fevers. No difficulty swallowing or breathing. No cough or congestion. No chest pain or shortness of breath. No abdominal pain, nausea, vomiting. No other acute complaints. Swelling is isolated over the left inferior chin and left cheek with some discharge from an open draining pimple. Presents for further evaluation. - Related Data Home Medications Medication Instructions Recorded Confirmed Pantoprazole [Protonix] 40 mg PO Q2D 12/13/15 10/31/22 amLODIPine BESYLATE [Amlodipine 5 mg PO DAILY 12/13/15 10/31/22 Besylate] ALPRAZolam [Xanax] 2 mg PO BID PRN 11/26/20 10/31/22 FLUoxetine HCL [PROzac] 20 mg PO Q2D 02/22/21 10/31/22 Aspirin 81 mg PO DAILY 10/29/22 10/31/22 FLUoxetine HCL [PROzac] 30 mg PO Q2D 10/29/22 10/31/22 Previous Rx's Medication Instructions Recorded Etanercept [Enbrel Sureclick] 50 mg SQ FR #0 11/01/20 cloNIDine HCL [Catapres] 0.2 mg PO Q8H PRN #21 tablet 10/23/21 HYDROcodone/APAP 5-325MG [Hopkins 1 tab PO Q6HR PRN #28 tab 10/31/22 5-325] traMADol HCl [Ultram] 50 mg PO Q6H PRN #28 tab 10/31/22 Cephalexin [Keflex] 500 mg PO Q6HR #28 cap 07/02/23 Sulfamethox-Tmp 800-160Mg [Bactrim 2 each PO Q12HR #28 tab 07/02/23 Ds] Cephalexin [Keflex] 500 mg PO Q6HR 10 Days #40 cap 03/03/24 Sulfamethox-Tmp 800-160Mg [Bactrim 1 tab PO Q12HR #28 tab 03/03/24 DS 800-160 mg] dexAMETHasone [Decadron] 4 mg PO DAILY 3 Days #3 tablet 03/03/24 Allergies Allergy/AdvReac Type Severity Reaction Status Date / Time oxycodone [From Percocet] AdvReac Unknown sweating,bloodpressure Verified 03/03/24 16:46 drops,n/v, dizziness fentanyl AdvReac Vomiting Verified 03/03/24 16:46 hydromorphone [From Dilaudid] AdvReac sweating, Verified 03/03/24 16:46 blood pressure dropped, n/v,dizziness ondansetron [From Zofran] AdvReac Nausea Verified 03/03/24 16:46 Review of Systems ROS Statement: Those systems with pertinent positive or pertinent negative responses have been documented in the HPI. Review of Systems: CONST: Denies fever EYES: Denies blurry vision ENT: Denies nasal congestion C/V: Denies Chest pain RESP: Denies shortness of breath GI: Denies abdominal pain : Denies dysuria SKIN: Endorses facial infection/cellulitis MSK: Denies joint pain. NEURO: Denies headache ROS Other: All systems not noted in ROS Statement are negative. Past Medical History Past Medical History: GERD/Reflux, Hypertension, Pneumonia, Rheumatoid Arthritis (RA) Additional Past Medical History / Comment(s): DIVERTICULOSIS, perforated bowel, facial cellulitis History of Any Multi-Drug Resistant Organisms: None Reported Date of last positivie culture/infection: 11/26/20 ESBL 10/05/20 MRSA MDRO Source:: ESBL URINE, MRSA FACE Past Surgical History: Joint Replacement, Orthopedic Surgery Additional Past Surgical History / Comment(s): KNEE SURGERIES LEFT X 9, left knee replaced, D & C, hysterectomy,. COLECTOMY with reversile, ureter stent, pipeline embolization Past Anesthesia/Blood Transfusion Reactions: No Reported Reaction, Family History of Problems w/ Anesthesia Additional Past Anesthesia/Blood Transfusion Reaction / Comment(s): daughter passed out after wisdom teeth removed Past Psychological History: Anxiety, Depression Smoking Status: Former smoker Past Alcohol Use History: None Reported Past Drug Use History: None Reported - Past Family History Mother Family Medical History: Diabetes Mellitus, Hypertension Father Family Medical History: Hypertension, Renal Disease Brother(s) Family Medical History: Diabetes Mellitus Sister(s) Family Medical History: Diabetes Mellitus Daughter(s) Family Medical History: No Reported History Son(s) Family Medical History: No Reported History General Exam - General Exam Comments Initial Comments: General: Appears in no acute distress. HEAD: Normal with no signs of head trauma. EYES: PERRLA, EOMI, conjunctiva normal, no discharge. ENT: Hearing grossly intact, normal oropharynx. No stridor. No obvious fluctuance over the left cheek. Induration as well as an open pimple/wound. Erythema and concern for cellulitis over the left cheek and left jaw. No floor of the mouth edema. No evidence of Jace's angina at this time. RESPIRATORY: Clear breath sounds bilaterally. No wheezes, rales, or rhonchi. C/V: Regular rate and rhythm. S1 and S2 auscultated, no edema, peripheral pulses 2+ and intact throughout ABD: Abd is soft, nontender, nondistended EXT: Normal range of motion, no obvious deformity SKIN: See above for facial exam. NEURO: Alert and oriented x 4. Limitations: no limitations Course Vital Signs 03/03/24 03/03/24 03/03/24 16:44 18:44 19:39 Temperature 98.2 F Pulse Rate 77 84 95 Respiratory 18 18 16 Rate Blood Pressure 137/92 163/94 138/87 O2 Sat by Pulse 97 98 96 Oximetry Medical Decision Making - Medical Decision Making Was pt. sent in by a medical professional or institution (, PA, WHITE WASHER, urgent care, hospital, or [facility]...) When possible be specific @ -No Did you speak to anyone other than the patient for history (EMS, parent, family, police, friend...)? What history was obtained from this source @ -No Did you review nursing and triage notes (agree or disagree)? Why? @ -I reviewed and agree with nursing and triage notes Were old charts reviewed (outside hosp., previous admission, EMS record, old EKG, old radiological studies, urgent care reports/EKG's, [facility] records)? Report findings @ -Reviewed chart from yesterday as well as the prescriptions prescribed inclu ding Keflex and Bactrim at that time. Differential Diagnosis (chest pain, altered mental status, abdominal pain women, abdominal pain men, vaginal bleeding, weakness, fever, dyspnea, syncope, headache, dizziness, GI bleed, back pain, seizure, CVA, palpatations, mental health, musculoskeletal)? @ -Cellulitis, abscess, Jace's angina. This list is not all inclusive. EKG interpreted by me (3pts min.). @ -None done X-rays interpreted by me (1pt min.). @ -None done CT interpreted by me (1pt min.). @ -CT of the face reveals cellulitis as well as possible early phlegmon. No abscess. No drainable abscess. U/S interpreted by me (1pt. min.). @ -None done What testing was considered but not performed or refused? (CT, X-rays, U/S, labs)? Why? @ -None What meds were considered but not given or refused? Why? @ -None Did you discuss the management of the patient with other professionals (pr ofessionals i.e. , PA, WHITE WASHER, lab, RT, psych nurse, social research assistant, tablet machine operator, teacher, chief mechanical officer, watch caser)? Give summary @ -No Was smoking cessation discussed for >3mins.? @ -No Was critical care preformed (if so, how long)? @ -No Were there social determinants of health that impacted care today? How? (Homelessness, low income, unemployed, alcoholism, drug addiction, transportation, low edu. Level, literacy, decrease access to med. care, senior living, rehab)? @ -No Was there de-escalation of care discussed even if they declined (Discuss DNR or withdrawal of care, Hospice)? DNR status @ -No What co-morbidities impacted this encounter? (DM, HTN, Smoking, COPD, CAD, Cancer, CVA, ARF, Chemo, Hep., AIDS, mental health diagnosis, sleep apnea, morbid obesity)? @ -None Was patient admitted / discharged? Hospital course, mention meds given and route, prescriptions, significant lab abnormalities, going to OR and other pertinent info. @ -Patient presents with facial cellulitis. Edema got worse throughout the day today after being evaluated earlier this morning by the overnight provider. Denies any systemic symptoms or difficulty swallowing or breathing. No floor the mouth swelling. Presents for further evaluation. Recommended imaging as well as basic labs. I offered a dose of IV antibiotics which she declined at this time unless she is being admitted. She will be given a dose of IV steroids as well as IV fluids. She was in agreement this plan. Laboratory studies are remarkable for very mild leukocytosis of 11.2. Otherwise unremarkable. Patient's imaging reveals cellulitis. Possible very early phlegmon but no obvious abscess or drainable fluid collection. I discussed results with the patient. We both agree she can be discharged home again at this time. Recommended continued use of antibiotics that she has only been using them for 1 day. If symptoms worsen she needs to return to the emergency department. This includes any worsening swelling, difficulty derik athing or swallowing, fevers or chills. She was in agreement this plan. Patient does not require prescription for antibiotics but I will put her on steroids for the next 3 days. She was in agreement this plan. I will provide the patient with a prescription for Decadron. I instructed the patient to follow up with their PCP in the next 1-3 days. I explained that the patient should return to the emergency department if they experience any worsening symptoms. Strict return precautions were discussed with the patient. The patient expressed understanding of these instructions. I answered all qu estions that the patient had. The patient was discharged home in good condition with their prescriptions and follow up information. Undiagnosed new problem with uncertain prognosis? @ -No Drug Therapy requiring intensive monitoring for toxicity (Heparin, Nitro, Insulin, Cardizem)? @ -No Were any procedures done? @ -No Diagnosis/symptom? @ -Facial cellulitis Acute, or Chronic, or Acute on Chronic? @ -Acute Uncomplicated (without systemic symptoms) or Complicated (systemic symptoms)? @ -Uncomplicated Side effects of treatment? @ -No Exacerbation, Progression, or Severe Exacerbation? @ -No Poses a threat to life or bodily function? How? (Chest pain, USA, OR, pneumonia, PE, COPD, DKA, ARF, appy, cholecystitis, CVA, Diverticulitis, Homicidal, Suicidal, threat to staff... and all critical care pts) @ -Unlikely - Lab Data Result diagrams: 03/03/24 17:28 03/03/24 17:28 Lab Results 03/03/24 03/03/24 Range/Units 17:28 17:28 WBC 11.2 H (3.8-10.6) k/uL RBC 5.15 (3.80-5.40) m/uL Hgb 15.3 (11.4-16.0) gm/dL Hct 47.0 H (34.0-46.0) % MCV 91.1 (80.0-100.0) fL MCH 29.7 (25.0-35.0) pg MCHC 32.5 (31.0-37.0) g/dL RDW 13.0 (11.5-15.5) % Plt Count 302 (150-450) k/uL MPV 7.4 Neutrophils % 76 % Lymphocytes % 15 % Monocytes % 5 % Eosinophils % 2 % Basophils % 1 % Neutrophils # 8.5 H (1.3-7.7) k/uL Lymphocytes # 1.7 (1.0-4.8) k/uL Monocytes # 0.6 (0-1.0) k/uL Eosinophils # 0.2 (0-0.7) k/uL Basophils # 0.1 (0-0.2) k/uL Sodium 142 (137-145) mmol/L Potassium 4.4 (3.5-5.1) mmol/L Chloride 107 (98-107) mmol/L Carbon Dioxide 25 (22-30) mmol/L Anion Gap 10 mmol/L BUN 9 (7-17) mg/dL Creatinine 0.73 (0.52-1.04) mg/dL Est GFR (CKD-EPI)AfAm >90 (>60 ml/min/1.73 sqM) Est GFR (CKD-EPI)NonAf 89 (>60 ml/min/1.73 sqM) Glucose 126 H (74-99) mg/dL Calcium 9.8 (8.4-10.2) mg/dL Total Bilirubin 0.9 (0.2-1.3) mg/dL AST 26 (14-36) U/L ALT 21 (4-34) U/L Alkaline Phosphatase 123 (38-126) U/L Total Protein 7.9 (6.3-8.2) g/dL Albumin 4.5 (3.5-5.0) g/dL Disposition Clinical Impression: Facial cellulitis Disposition: HOME SELF-CARE Condition: Good Instructions (If sedation given, give patient instructions): Cellulitis (ED) Prescriptions: dexAMETHasone [Decadron] 4 mg PO DAILY 3 Days #3 tablet Is patient prescribed a controlled substance at d/c from ED?: No Referrals: Shayne Cisneros DO [Primary Care Provider] - 1-2 days Rancho Quick MD [STAFF PHYSICIAN] - 1-2 days Time of Disposition: 19:25
[2024-03-03 19:40] VITALS: BP 138/87; PULSE 95; RESP 16
== END 2024-03-03 19:40 | disposition home or self-care (01) ==
LOC: EC 16:28
CPT/HCPCS: 36415; 70491; 80053; 85025; 96361; 96374; 96375; 99284

== ENCOUNTER 2024-08-16 09:16 | Day surgery (SDC) | payer MEDICAID ==
[2024-08-16 09:36] VITALS: TEMP 97
[2024-08-16] MEDS: LIDOCAINE 1% (10MG/ML) FOR IV START INTRADERMA PRN (09:42)
[2024-08-16] MEDS: LACTATED RINGERS 1,000 ML IV SCH (09:42)
[2024-08-16] MEDS: IV FLUID CONTINUATION 1,000 ML IV ONE (09:42)
[2024-08-16] MEDS ORDERED: PROPOFOL 10 MG/ML 20 ML VIAL IV ONE (10:04)
[2024-08-16] MEDS ORDERED: LIDOCAINE 1% INJ 10MG/ML (20 ML MDV) ONE (10:04)
--- NOTE | 2024-08-16 10:09 | P.GSHP ---
History of Present Illness H&P Date: 08/16/24 Chief Complaint: Colon cancer screening 63-year-old female known to our service. Back in 2020 she had perforated sigmoid diverticulitis requiring ostomy and subsequent reversal. Doing well. No bowel complaints currently. Family history of colon cancer in her father. Past Medical History Past Medical History: GERD/Reflux, Hypertension, Pneumonia, Rheumatoid Arthritis (RA) Additional Past Medical History / Comment(s): DIVERTICULOSIS, perforated bowel, facial cellulitis, recent elevated liver enzymes will be retested in a couple of months, has brain anynursym, kidney stones, History of Any Multi-Drug Resistant Organisms: None Reported Date of last positivie culture/infection: 11/26/20 ESBL 10/05/20 MRSA MDRO Source:: ESBL URINE, MRSA FACE Past Surgical History: Joint Replacement, Orthopedic Surgery Additional Past Surgical History / Comment(s): KNEE SURGERIES LEFT X 9, left knee replaced, D & C, hysterectomy,. 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 Past Anesthesia/Blood Transfusion Reactions: No Reported Reaction, Family History of Problems w/ Anesthesia Additional Past Anesthesia/Blood Transfusion Reaction / Comment(s): daughter passed out after wisdom teeth removed Smoking Status: Former smoker - Past Family History Mother Family Medical History: Diabetes Mellitus, Hypertension Father Family Medical History: Hypertension, Renal Disease Brother(s) Family Medical History: Diabetes Mellitus Sister(s) Family Medical History: Diabetes Mellitus Daughter(s) Family Medical History: No Reported History Son(s) Family Medical History: No Reported History Medications and Allergies Home Medications Medication Instructions Recorded Confirmed Type Pantoprazole [Protonix] 40 mg PO Q2D 12/13/15 08/15/24 History amLODIPine BESYLATE [Amlodipine 5 mg PO DAILY 12/13/15 08/15/24 History Besylate] Etanercept [Enbrel Sureclick] 50 mg SQ FR #0 11/01/20 08/15/24 Rx ALPRAZolam [Xanax] 0.5 mg PO DAILY PRN 11/26/20 08/15/24 History FLUoxetine HCL [PROzac] 20 mg PO DAILY 02/22/21 08/15/24 History Aspirin 81 mg PO DAILY 10/29/22 08/15/24 History Allergies Allergy/AdvReac Type Severity Reaction Status Date / Time oxycodone [From Percocet] AdvReac Unknown sweating,bloodpressure Verified 08/16/24 09:41 drops,n/v, dizziness fentanyl AdvReac Vomiting Verified 08/16/24 09:41 hydromorphone [From Dilaudid] AdvReac sweating, Verified 08/16/24 09:41 blood pressure dropped, n/v,dizziness ondansetron [From Zofran] AdvReac Nausea Verified 08/16/24 09:41 Surgical - Exam Vital Signs Temp Pulse Resp BP Pulse Ox 97 F L 94 16 148/85 95 08/16/24 09:35 08/16/24 09:35 08/16/24 09:35 08/16/24 09:35 08/16/24 09:35 Physical exam: General: Well-developed, well-nourished HEENT: Normocephalic, sclerae nonicteric Abdomen: Nontender, nondistended Extremities: No edema Neuro: Alert and oriented Assessment and Plan (1) Colon cancer screening Narrative/Plan: Will proceed with colonoscopy at this time. Current Visit: Yes Status: Acute Code(s): Z12.11 - ENCOUNTER FOR SCREENING FOR MALIGNANT NEOPLASM OF COLON SNOMED Code(s): 246514321
--- NOTE | 2024-08-16 10:19 | P.PCN ---
Date of Procedure: 08/16/24 Procedure(s) Performed: PREOPERATIVE DIAGNOSIS: Colon cancer screening POSTOPERATIVE DIAGNOSIS: Diverticulosis PROCEDURE: Colonoscopy ANESTHESIA: MAC SURGEON: Milind Lebron M.D. SPECIMENS: None ENDOSCOPIC PROCEDURE: The patient was placed on the endoscopy table in the left decubitus position. The Olympus colonoscope was inserted into the anus and passed under direct visualization to the base of the cecum. The appendiceal orifice was visualized. From that point the scope was slowly withdrawn inspe cting all surfaces carefully. There were no neoplastic inflammatory or polypoid lesions throughout the cecum, ascending, transverse, descending, and rectum. The previous colorectal anastomosis was widely patent. There was scattered diverticulosis noted throughout the colon. Digital rectal examination was normal. The patient was taken to the recovery room in stable condition per anesthesia guidelines. RECOMMENDATIONS: Resume diet. Repeat colonoscopy 7 years.
[2024-08-16 10:24] VITALS: PULSE 68
[2024-08-16 10:40] VITALS: BP 115/84; RESP 18
== END 2024-08-16 10:55 | disposition home or self-care (01) ==
LOC: ORWHC2ENDO 09:16
PROVIDERS: ATTEND Surgery
DX: Z12.11 Encounter for screening for malignant neoplasm of colon (principal); K57.20 Diverticulitis of large intestine with perforation and abscess without bleeding; K21.9 Gastro-esophageal reflux disease without esophagitis; I10 Essential (primary) hypertension; M06.9 Rheumatoid arthritis, unspecified; F41.9 Anxiety disorder, unspecified; F32.A Depression, unspecified; Z87.442 Personal history of urinary calculi; Z90.710 Acquired absence of both cervix and uterus; Z90.49 Acquired absence of other specified parts of digestive tract; Z87.891 Personal history of nicotine dependence; Z83.3 Family history of diabetes mellitus; Z80.0 Family history of malignant neoplasm of digestive organs; Z82.49 Family history of ischemic heart disease and other diseases of the circulatory system; Z88.8 Allergy status to other drugs, medicaments and biological substances; Z88.5 Allergy status to narcotic agent; Z79.82 Long term (current) use of aspirin; Z79.899 Other long term (current) drug therapy
CPT/HCPCS: 45378; J2003; J2704

== ENCOUNTER → 2024-09-20 | Outpatient (CLI) | payer MEDICAID ==
[2024-09-20 15:34] LABS: ALT 77 U/L (8-44); AST 52 U/L (13-35); Albumin 4.1 g/dL (3.8-4.9); Albumin/Globulin Ratio 1.28 Ratio (1.60-3.17); Alkaline Phosphatase 111 U/L (41-126); BUN/Creat Ratio 12.38 Ratio (12.00-20.00); Bilirubin, Conjugated 0.22 mg/dL (0.20-0.40); Bilirubin,Unconjugated 0.28 mg/dL (0.20-1.00); Blood Urea Nitrogen 9.9 mg/dL (9.0-27.0); Calcium 9.4 mg/dL (8.7-10.3); Carbon Dioxide 23.7 mmol/L (21.6-31.8); Chloride 109 mmol/L (96-109); Chol/HDL Ratio 3.09 Ratio; Globulin 3.2 g/dL (1.6-3.3); Glucose 92 mg/dL (70-110); LDL Cholesterol,Calculated 104.8 mg/dL (0.0-131.0); Potassium 5.4 mmol/L (3.5-5.5); Sodium 143 mmol/L (135-145); Total Bilirubin 0.5 mg/dL (0.3-1.2); Total Protein 7.3 g/dL (6.2-8.2)
== END | disposition home or self-care (01) ==
LOC: LABWHC1 09:31
PROVIDERS: ATTEND Family Medicine
DX: R79.89 Other specified abnormal findings of blood chemistry (principal)
CPT/HCPCS: 36415; 80053; 80061; 82248